=== PATIENT | female | born 1940 | race Caucasian/White ===

== ENCOUNTER → 2017-03-21 | Outpatient (CLI) | payer MEDICARE, OTHER ==
--- NOTE | 2017-03-21 15:16 | XR ---
EXAMINATION TYPE: XR chest 2V DATE OF EXAM: 03/21/2017 COMPARISON: NONE HISTORY: COPD, J44.9 TECHNIQUE: Frontal and lateral views of the chest are obtained. FINDINGS: There are prominent lung volumes which may be indicative of COPD. Heart size may be accent uated by rotation. No evident pneumothorax or pleural effusion. The aorta is dense. Pulmonary vascula rity and thomas within normal limits. Suspect a prominent epicardial fat pad. IMPRESSION: No acute cardiopulmonary process.
--- NOTE | 2017-03-22 07:20 | MM ---
Reason for exam: clinical finding. Last mammogram was performed 6 years and 5 months ago. History: Patient is postmenopausal. Took estrogen for 23 years beginning at age 40. Took progesterone for 23 years beginning at age 40. Physical Findings: Nurse did not find any significant physical abnormalities on exam. MG 3D Diag Mammo W/Cad DANILO Bilateral CC, MLO, and XCCL view(s) were taken. Prior study comparison: October 12, 2010, bilateral digital screening mammo w/CAD. September 04, 2009, bilateral digital screening mammogram. There are scattered fibroglandular densities. No significant new findings when compared with previous films. These results were verbally communicated with the patient and result sheet given to the patient on 03/21/17. ASSESSMENT: Benign, BI-RAD 2 RECOMMENDATION: Routine screening mammogram of both breasts in 1 year.
--- NOTE | 2017-03-22 07:21 | USB ---
Reason for exam: clinical finding. History: Patient is postmenopausal. Took estrogen for 23 years beginning at age 40. Took progesterone for 23 years beginning at age 40. US Breast LT Left breast ultrasound includes all four quadrants, the retroareolar region and axilla. Finding demonstrates no cystic or solid lesion seen. Nodes noted in axilla. These results were verbally communicated with the patient and result sheet given to the patient on 03/21/17. ASSESSMENT: Benign, BI-RAD 2 RECOMMENDATION: Routine screening mammogram of both breasts in 1 year.
== END | disposition home or self-care (01) ==
LOC: RADMAMWWP 14:24
PROVIDERS: ATTEND Family Medicine
DX: N64.4 Mastodynia (principal); J44.9 Chronic obstructive pulmonary disease, unspecified
CPT/HCPCS: 71020; 76641; G0204; G0279

== ENCOUNTER → 2017-08-30 | Outpatient (CLI) | payer MEDICARE, OTHER ==
--- NOTE | 2017-08-30 18:29 | CTL ---
EXAMINATION TYPE: CT Low Dose Lung DATE OF EXAM ORDERED: 08/30/2017 HISTORY: 77-year-old female personal history of tobacco use. Lung cancer screening CT DLP: [address] CTDI: 2.95 mGy Automated exposure control for dose reduction was used. SCREENING VISIT: Baseline COMPARISON: None TECHNIQUE: Low dose computed tomography scan was performed through the chest at 1 mm thick sections and reconstructed images in the coronal plane at 1 mm thick sections. Coronal and sagittal reconstructions performed. Coronal MIP reconstruction performed. CT DIAGNOSTIC QUALITY: Limited, but interpretable FINDINGS: Heart is normal size without pericardial effusion. Coronary vessel calcifications are present and are a marker for coronary artery disease. Aorta is normal caliber with conventional arch vessel branching anatomy and mild atherosclerotic calcifications throughout. Scattered nonenlarged mediastinal lymph nodes are present. No thoracic lymphadenopathy by CT size criteria.. There is mild to moderate diffuse bronchial wall thickening and some biapical pleural-parenchymal scarring. Scattered reticular densities are present in the subpleural regions suggesting some interstitial scarring. A 1.3 cm pulmonary nodule is present in the posterior right upper lobe, axial image 86 of series 5. 6 mm left lower lobe pulmonary nodule axial image 205 of series 5. No consolidation or pleural effusion. Visualized upper abdomen shows no gross abnormality.. Bones: No osseous destructive process. Degenerative disc disease midthoracic spine. IMPRESSION: 1. LungRADS 4A (suspicious, 5 - 15% chance of malignancy): A 1.3 cm right upper lobe pulmonary nodule at baseline screening. Additional 6 mm left lower lobe pulmonary nodule. 2. Moderate bronchial wall thickening suggests bronchitis or uncontrolled asthma. 3. CAD. RECOMMENDATION: 1. Three-month follow-up low-dose CT chest. 2. Alternatively, PET/CT can be considered. 3. Smoking cessation. FOLLOW UP CT CHEST RECOMMENDATION: [address] LUNG RAD: Lung-Rad 4A Suspicious MTDD
== END | disposition home or self-care (01) ==
LOC: RADCTMAIN 15:02
PROVIDERS: ATTEND Family Medicine
DX: Z12.2 Encounter for screening for malignant neoplasm of respiratory organs (principal); I25.10 Atherosclerotic heart disease of native coronary artery without angina pectoris; R91.8 Other nonspecific abnormal finding of lung field; J98.09 Other diseases of bronchus, not elsewhere classified; Z87.891 Personal history of nicotine dependence

== ENCOUNTER → 2017-09-09 | Outpatient (CLI) | payer MEDICARE, OTHER ==
--- NOTE | 2017-09-13 15:55 | PE ---
EXAMINATION TYPE: PET CT fusion skull to thigh DATE OF EXAM: 09/09/2017 COMPARISON: 08/30/2017 HISTORY: Solitary pulmonary nodule. TECHNIQUE: Following the intravenous administration of 13.4 mCi of F-18 FDG, whole body images are p erformed from the skull base to the midthigh. Images are reviewed on the computer in the coronal, ax ial, and sagittal planes. Reconstructed rotating images are created on independent workstation and r eviewed on the computer. A localization and attenuation correction CT is performed in conjunction w ith the PET scan. SCAN: First. Staging. FINDINGS: Mediastinal background: 2.49 Liver background: 3.84 SKULL BASE AND NECK: No suspicious hypermetabolic uptake. CHEST, MEDIASTINUM, AND HILAR REGION: Corresponding to the 1.3 cm right upper lobe pulmonary nodule t here is hypermetabolic activity with a maximum SUV of 5.22, suspicious for malignant neoplasm. The ad ditional 6 mm pulmonary nodule within the left lower lobe is below the threshold of PET CT and not de monstrated to be hypermetabolic on this examination. No hypermetabolic mediastinal adenopathy is note d. No supraclavicular adenopathy. ABDOMEN AND PELVIS: No suspicious hypermetabolic uptake. OSSEOUS STRUCTURES: No suspicious hypermetabolic uptake. OTHER CT: Paranasal sinuses and mastoid air cells are well aerated. Mild biapical pleural parenchymal scarring is noted. There is redemonstration of a right upper lobe 1.3 cm noncalcified solid pulmonar y nodule. 6 mm left pulmonary nodule within the lower lobe on image 118 is below the threshold of PET and not hypermetabolic. No other pulmonary nodules or masses are identified. No focal consolidation. No adenopathy. Moderate calcific atheromatous changes are seen of the thoracic aortae with the desce nding thoracic aorta upper limits normal size measuring 2.9 cm. Moderate three-vessel coronary calcif ications are also noted. Cholesterol gallstones are seen as they are centrally lucent. Unenhanced liver, adrenal glands, splee n, and pancreas are unremarkable. Renal arterial calcifications are seen. Ventral abdominal hernia nugent s a wide neck and does not contain bowel. This contains only mesenteric fat. No hydronephrosis or marleny ss evidence of adenopathy within the abdomen or pelvis. Scattered colonic diverticula are present wit hout pericolonic fat stranding. Osseous structures are intact with multilevel degenerative change yamila t is mild. IMPRESSION: Solitary hypermetabolic right upper lobe pulmonary nodule measuring 1.3 cm. The 6 mm left lower lobe pulmonary nodules not hypermetabolic, however is below the threshold of PET CT. No eviden ce of supraclavicular adenopathy, mediastinal adenopathy, osseous metastasis, or visceral metastasis. Therefore this patient is currently stage [id number] based on the PET/CT.
== END | disposition home or self-care (01) ==
LOC: RADPETMAIN 16:35
PROVIDERS: ATTEND Family Medicine
DX: R91.1 Solitary pulmonary nodule (principal)
CPT/HCPCS: 78815; A9552

== ENCOUNTER 2017-09-25 09:03 | Day surgery (SDC) | payer MEDICARE, OTHER ==
[2017-09-25 09:28] VITALS: RESP 20; TEMP 97.8
[2017-09-25] MEDS: ALPRAZolam 0.25 MG TAB PO STA ×2 (09:31→10:36)
[2017-09-25 09:47] LABS: Mean Platelet Volume 8.2; Platelet Count 207 k/uL (150-450)
[2017-09-25 09:58] LABS: INR 1.1 (<1.2); Prothrombin Time 10.4 sec (9.0-12.0)
[2017-09-25 11:02] VITALS: BP 171/82; PULSE 74
== END 2017-09-25 11:30 | disposition home or self-care (01) ==
LOC: RADPROMAIN 09:03
PROVIDERS: ATTEND Family Medicine
DX: R91.1 Solitary pulmonary nodule (principal); Z53.8 Procedure and treatment not carried out for other reasons
CPT/HCPCS: 36415; 85049; 85610

== ENCOUNTER 2017-10-05 09:01 | Day surgery (SDC) | payer MEDICARE, OTHER ==
[~2017-10-05 09:01] MED LIST: ALPRAZolam 0.25 MG TAB PO ONE
[2017-10-05 09:40] LABS: Mean Platelet Volume 8.2; Platelet Count 214 k/uL (150-450)
[2017-10-05 09:43] LABS: INR 1.1 (<1.2); Prothrombin Time 10.8 sec (9.0-12.0)
--- NOTE | 2017-10-05 11:16 | CT ---
EXAMINATION TYPE: CT guided lung biopsy DATE OF EXAM: 10/05/2017 COMPARISON: 09/09/2017. HISTORY: 1.3 cm hypermetabolic right upper lobe pulmonary nodule CT DLP: 1521 mGycm The procedure is discussed with the patient, the risks, complications, benefits and alternatives, wer e discussed and any questions were answered. Informed consent was obtained. Preprocedural timeout wa s performed. The patient is placed prone on the CT table, prepped and draped in the usual sterile fas hion. Utilizing a 17-gauge introducer and 18-gauge Temno biopsy device, access into the right upper lobe pu lmonary nodule was achieved. 4 core samples were obtained. All elements of maximal barrier techniqu e were utilized. The patient remained stable throughout the procedure with trace postprocedural pneu mothorax. Vitals were monitored throughout the examination by nursing staff. IMPRESSION: Successful CT guided core needle biopsy of a right upper lobe pulmonary nodule.
--- NOTE | 2017-10-05 12:33 | XR ---
EXAMINATION TYPE: XR chest 1V portable DATE OF EXAM: 10/05/2017 HISTORY: Status post lung biopsy. COMPARISON: 03/21/2017 TECHNIQUE: Single view of the chest is submitted. FINDINGS: Demonstrated are scattered senescent parenchymal change. There appears to be a tiny right apical pneumothorax. Follow-up recommended. Right upper lobe nodule redemonstrated. Patchy density right lower lobe. The heart is stable. Hilar and mediastinal structures are within normal limits. Degenerative changes are seen of the dorsal spine. IMPRESSION: 1. There appears to be a tiny right apical pneumothorax. Follow-up recommended. Right upper lobe nod ule redemonstrated. Patchy density right lower lobe.
--- NOTE | 2017-10-05 14:10 | XR ---
EXAMINATION TYPE: XR chest 1V portable DATE OF EXAM: 10/05/2017 COMPARISON: 10/05/2017 HISTORY: Status post right lung biopsy TECHNIQUE: Single frontal view of the chest is obtained. FINDINGS: The small right apical pneumothorax appears slightly larger than on the prior exam earlier the same date. Apical separation measures approximately 6.6 mm. This is estimated to be less than 10 %. Right upper lobe density relates to perilesional postbiopsy hemorrhage. Improved aeration of the l ungs is due likely due to improved degree of inspiration. Cardiomegaly remains. IMPRESSION: Right apical pneumothorax appears slightly larger than on the prior exam. Remainder of t he exam is unchanged from the prior.
--- NOTE | 2017-10-05 16:08 | XR ---
EXAMINATION TYPE: XR chest 1V portable DATE OF EXAM: 10/05/2017 COMPARISON: 10/05/2017 HISTORY: Status post right lung biopsy. TECHNIQUE: Single frontal view of the chest is obtained. FINDINGS: There is continued increase in size of the right apical pneumothorax. There is also a ques tion medial aspect of a pneumothorax. Obscuration of the left costophrenic angle is likely related to overlying copious soft tissues. Minimal perilesional hemorrhage is redemonstrated. Cardiomegaly is u nchanged. Osseous structures are grossly intact. IMPRESSION: Continued enlargement of the right apical pneumothorax. Findings were discussed with the floor nurse ordering physician and the patient will be admitted for continued monitoring.
--- NOTE | 2017-10-05 17:12 | XR ---
EXAMINATION TYPE: XR chest 1V portable DATE OF EXAM: 10/05/2017 COMPARISON: 10/05/2017 3:25 PM HISTORY: Post lung biopsy on the right. TECHNIQUE: Single frontal view of the chest is obtained. FINDINGS: There appears to be at least stability or decrease in the right apical pneumothorax and th e previously questioned medial component appears less conspicuous on the current examination. Cardiom egaly remains. Perilesional hemorrhage is mild. Improved aeration of the lungs is noted. Osseous stru ctures are intact. IMPRESSION: Stable if not slightly improved small right apical pneumothorax of approximately 10%.
[2017-10-05 17:38] VITALS: BMI 32.2
[2017-10-05] MEDS ORDERED: ALPRAZolam 0.5 MG TAB PO PRN (18:00)
[2017-10-05] MEDS ORDERED: SODIUM CHLORIDE 0.9% 500 ML IV SCH (18:00)
[2017-10-05] MEDS: cloNIDine HCL 0.1 MG TAB PO SCH (21:23)
[2017-10-05] MEDS: FAMOTIDINE 20 MG TAB PO SCH (21:23)
--- NOTE | 2017-10-05 21:28 | XR ---
EXAMINATION TYPE: XR chest 1V portable DATE OF EXAM: 10/05/2017 HISTORY: Follow-up pneumothorax right-sided lung biopsy. COMPARISON: 10/05/2017 TECHNIQUE: Single view of the chest is submitted. FINDINGS: Stable less than 10% right apical pneumothorax. Continued follow-up advised. Demonstrated are scattered senescent parenchymal change. There is no evidence for focal infiltrate. Upper lobe nodule redemonstrated. The heart is stable. Hilar and mediastinal structures are within normal limits. Degenerative changes are seen of the dorsal spine. IMPRESSION: 1. Stable less than 10% right apical pneumothorax. Continued follow-up advised.
--- NOTE | 2017-10-05 23:04 | HP ---
HISTORY AND PHYSICAL CHIEF COMPLAINT: [id number]old white female, status post right lung biopsy for a positive PET scan type lesion in the right upper lobe for possible lung cancer. Core biopsies were done. Pneumothorax was seen postoperatively. She is admitted for monitoring. PAST MEDICAL HISTORY: 1. Smoking and COPD. 2. Hypertension. 3. Obesity. 4. Status post lung core biopsy from Radiology Department with pneumothorax 10% post biopsy. Admitted for monitoring. HOME MEDICATIONS: 1. Claritin 10 mg daily. 2. Singulair 10 mg daily. 3. Zestril 10 mg daily. 4. Pepcid 10 mg b.i.d. 5. Catapres 0.1 mg t.i.d. 6. Xanax 0.5 mg p.r.n. REVIEW OF SYSTEMS: Fourteen-point review of systems negative except for mentioned in HPI. PHYSICAL EXAMINATION: Pulse 84 to 87, temperature 97.8, respiratory rate 16 to 20, blood pressure 130s to 170s over 70s to 90s, oxygen 96% on room air. CARDIOVASCULAR: S1, S2. LUNGS: Decreased breath sounds in the right lungs. Fair air flow bilaterally. No tracheal deviation seen on chest exam. ENT: No rales, rhonchi. Wheezes are equal bilaterally in both lungs. Scattered, mild to moderate. ENDOCRINE: BMI is over 40. PSYCH: Fair mood and affect. NEUROLOGIC: Alert and oriented x3. GENERAL: She appears to be breathing stably on room air at this time. Vital signs are reviewed. VASCULAR: Normal dorsalis pedis, posterior tibial and radial pulses. ASSESSMENT: 1. Status post lung biopsy with pneumothorax, with positive PET scan for right upper lobe possible metastases. Await biopsy report. Monitor pneumothorax overnight. 2. Hypertension. 3. Chronic obstructive pulmonary disease. 4. Nicotine addiction. Continue current treatments. Obesity counseling and smoking cessation counseling given. Will monitor her overnight. MMODL / IJN: [id number] /
[2017-10-06 06:57] LABS: Basophils % (A) 1 %; Eosinophils # (A) 0.3 k/uL (0-0.7); Eosinophils % (A) 4 %; HCT 39.8 % (34.0-46.0); HGB 13.6 gm/dL (11.4-16.0); Lymphocytes # (A) 2.2 k/uL (1.0-4.8); Lymphocytes % (A) 26 %; MCH 29.9 pg (25.0-35.0); MCHC 34.1 g/dL (31.0-37.0); MCV 87.6 fL (80.0-100.0); Mean Platelet Volume 7.1; Monocytes # (A) 0.4 k/uL (0-1.0); Monocytes % (A) 5 %; Neutrophils # (A) 5.5 k/uL (1.3-7.7); Neutrophils % (A) 64 %; Platelet Count 176 k/uL (150-450); RBC 4.55 m/uL (3.80-5.40); RDW 12.8 % (11.5-15.5); WBC 8.7 k/uL (3.8-10.6)
[2017-10-06 07:14] LABS: ALT 28 U/L (9-52); AST 16 U/L (14-36); Albumin 3.8 g/dL (3.5-5.0); Alkaline Phosphatase 79 U/L (38-126); Anion Gap 8 mmol/L; Blood Urea Nitrogen 11 mg/dL (7-17); Calcium 9.4 mg/dL (8.4-10.2); Carbon Dioxide 30 mmol/L (22-30); Chloride 104 mmol/L (98-107); Glucose 108 mg/dL (74-99); Potassium 4.1 mmol/L (3.5-5.1); Sodium 142 mmol/L (137-145); Total Bilirubin 0.8 mg/dL (0.2-1.3); Total Protein 6.7 g/dL (6.3-8.2)
[2017-10-06] MEDS ORDERED: HYDROcodone/APAP 5-325MG 1 EACH TAB PO PRN (07:18)
[2017-10-06] MEDS: FAMOTIDINE 20 MG TAB PO SCH (08:35)
[2017-10-06] MEDS: cloNIDine HCL 0.1 MG TAB PO SCH (08:35)
[2017-10-06] MEDS ORDERED: LISINOPRIL 10 MG TAB PO SCH (09:00)
[2017-10-06] MEDS ORDERED: LORATADINE 10 MG TAB PO SCH (09:00)
[2017-10-06] MEDS ORDERED: MONTELUKAST 10 MG TAB PO SCH (09:00)
[2017-10-06 12:23] VITALS: BP 122/72; PULSE 77; RESP 18; TEMP 98.6
--- NOTE | 2017-10-06 12:45 | P.CNPUL ---
History of Present Illness Consult date: 10/06/17 Reason for consult: pneumothorax, lung mass, abnormal CXR/CT Chief complaint: Shortness of breath, small apical pneumothorax History of present illness: 77-year-old female with extensive history of smoking and nicotine use seen eval reexamined on third floor this patient admitted into the hospital one day post CT-guided biopsy for right upper lobe nodule which was 1.3 cm in size patient developed a small apical pneumothorax serial chest x-rays performed to reviewed and compared with the prior x-rays the pneumothorax was consistent and slightly progress up to 10% patient was admitted into the hospital for further evaluation and intervention and treatment and observation, currently patient is pain-free does have mild shortness breath activity and exertion denies any chest pain, patient has been found to have a right upper lobe nodule she had a PET scan on outpatient basis which was positive for hypermetabolic uptake Review of Systems All systems: negative Past Medical History Past Medical History: Asthma, Eye Disorder, Hypertension, Osteoarthritis (OA), Respiratory Disorder Additional Past Medical History / Comment(s): Right ear pain-swelling lump mass in neck., polyp - pre cancer History of Any Multi-Drug Resistant Organisms: None Reported Past Surgical History: Hernia Repair, Hysterectomy Additional Past Surgical History / Comment(s): Colon/bowel surgery-"too much bowel" done in her 30's, cataracts, hemorroid sx, bowel resection, hiatel hernia Past Anesthesia/Blood Transfusion Reactions: No Reported Reaction Past Psychological History: No Psychological Hx Reported Smoking Status: Current every day smoker Past Alcohol Use History: None Reported Past Drug Use History: None Reported - Past Family History Sister(s) Family Medical History: Coronary Artery Disease (CAD) Father Family Medical History: Myocardial Infarction (CO) Mother Family Medical History: Cancer Additional Family Medical History / Comment(s): bowel cancer Medications and Allergies Home Medications Medication Instructions Recorded Confirmed Type ALPRAZolam [Xanax] 0.5 mg PO HS PRN 03/19/14 10/05/17 History Cetirizine HCl [Zyrtec] 10 mg PO DAILY 03/19/14 10/05/17 History Famotidine [Pepcid] 10 mg PO BID 03/19/14 10/05/17 History Montelukast [Singulair] 10 mg PO DAILY 09/15/17 10/05/17 History Lisinopril [Zestril] 10 mg PO DAILY 10/05/17 10/05/17 History cloNIDine HCL [Catapres] 0.1 mg PO TID 10/05/17 10/05/17 History Allergies Allergy/AdvReac Type Severity Reaction Status Date / Time Penicillins Allergy Rash/Hives Verified 10/05/17 09:25 Physical Exam Vitals: Vital Signs Temp Pulse Resp BP Pulse Ox 10/06/17 12:00 98.6 F 77 18 122/72 93 L 10/06/17 08:00 16 10/06/17 07:19 98.5 F 93 16 138/84 95 10/06/17 04:15 97.9 F 93 16 163/90 95 10/06/17 00:00 97.9 F 84 16 149/77 94 L 10/05/17 23:20 95 10/05/17 20:00 84 16 10/05/17 19:00 97.9 F 82 16 169/77 96 10/05/17 16:58 97.8 F 84 16 173/93 96 10/05/17 16:30 88 20 133/95 94 L 10/05/17 14:30 87 18 164/79 94 L 10/05/17 13:30 87 18 142/66 98 10/05/17 13:00 87 18 140/66 98 10/05/17 12:30 87 18 134/60 96 Intake and Output 10/05/17 10/06/17 10/06/17 22:59 06:59 14:59 Intake Total 560 100 Balance 560 100 Intake: Intake, IV Titration 160 Amount Sodium Chloride 0.9% 500 160 ml @ 20 mls/hr IV .Q24H [facility] Rx#:[id number] Oral 400 100 Other: Voiding Method Toilet # Voids 1 3 Weight 80 kg - EENT Eyes: EOMI, PERRLA, dentition normal, normal appearance ENT: normal oropharynx Ears: bilateral: normal - Neck Neck: normal ROM Carotids: bilateral: upstroke normal, bruit absent Thyroid: bilateral: normal size - Respiratory Respiratory: bilateral: CTA, negative: diminished, dullness, rales, rhonchi, wheezing, prolonged expiration, prolonged inspiration - Cardiovascular Heart sounds: normal: S1, S2 - Integumentary Integumentary: normal, normal turgor - Neurologic Normal neuro exam Neurologic: CNII-XII intact - Musculoskeletal Musculoskeletal: gait normal, generalized weakness, strength equal bilaterally - Psychiatric Psychiatric: A&O x's 3, appropriate affect, intact judgment & insight Results - Laboratory Findings CBC and BMP: 10/06/17 06:33 10/06/17 06:33 PT/INR, D-dimer PT 10.8 sec (9.0-12.0) 10/05/17 09:30 INR 1.1 (<1.2) 10/05/17 09:30 Abnormal lab findings: Abnormal Labs 10/06/17 06:33 Glucose 108 H - Diagnostic Findings Chest x-ray: report reviewed, image reviewed (Chest x-ray performed serially reviewed include postbiopsy x-ray at noontime on October 05, 2 PM and 3:20 PM and 5 PM same day along with 9 PM small apical pneumothorax is changed remains stable initial progression was noted another chest x-ray 10/06/17 reviewed no visible pneumothorax is seen some capping of the apex seen) Assessment and Plan Assessment: Small apical pneumothorax Right upper lobe nodule 1.3 cm with positive PET scan Hypertension hypertensive cardiovascular disease Sensory history of smoking and nicotine use likely baseline COPD Severe morbid obesity Generalized anxiety disorder Plan: Continue deep breathing exercise incentive spirometry repeat chest x-ray tomorrow morning if remains stable can be discharged home with follow-up on outpatient basis for for more definitive intervention about the right upper lobe nodule for follow-up on path reports as well which is currently pending Time with Patient: Greater than 30
--- NOTE | 2017-10-06 13:26 | XR ---
EXAMINATION TYPE: XR chest 1V portable DATE OF EXAM: 10/06/2017 COMPARISON: Prior chest x-ray 10/05/2017 HISTORY: Pneumothorax postbiopsy TECHNIQUE: Single frontal view of the chest is obtained. FINDINGS: Minimal right apical pneumothorax suspected. No significant interval change. IMPRESSION: No significant change. Patient is rotated.
== END 2017-10-06 15:46 ==
LOC: RADPROMAIN 09:01 → 3SUR 16:11 → RADPROMAIN 10-06 15:46
PROVIDERS: ATTEND Family Medicine
DX: C34.11 Malignant neoplasm of upper lobe, right bronchus or lung (principal); J93.9 Pneumothorax, unspecified; I11.9 Hypertensive heart disease without heart failure; J44.9 Chronic obstructive pulmonary disease, unspecified; E66.01 Morbid (severe) obesity due to excess calories; Z68.32 Body mass index [BMI] 32.0-32.9, adult; F17.200 Nicotine dependence, unspecified, uncomplicated; H57.9 Unspecified disorder of eye and adnexa; F41.1 Generalized anxiety disorder; M19.90 Unspecified osteoarthritis, unspecified site; Z79.899 Other long term (current) drug therapy; Z88.0 Allergy status to penicillin
CPT/HCPCS: 36415; 71045; 77012; 80053; 85025; 85049; 85610; 88305; 88341; 88342; 94760; 94762

== ENCOUNTER → 2017-10-18 | Outpatient (CLI) | payer MEDICARE, OTHER ==
[~2017-10-18] MED LIST changes: -ALPRAZolam 0.25 MG TAB PO ONE; +REGADENOSON 0.4 MG/5 ML SYRINGE IV ONE
--- NOTE | 2017-10-18 11:05 | NM ---
"EXAMINATION TYPE: NM stress lexiscan cardiolite DATE OF EXAM: 10/18/2017 COMPARISON: NONE HISTORY: Preprocedure testing TECHNIQUE: After the intravenous administration of 10.12 mCi Tc 99m Sestamibi - Cardiolite resting S PECT images acquired 45 minutes post injection. The patient received 0.4mg Lexiscan, 26.1 mCi Tc 99m Sestamibi - Stress images obtained [address] injection FINDINGS: There appears be normal radiotracer distribution on the resting images. On stress images there is gonzales e subtle diminished radiotracer within the cardiac apex. Some mild stress-induced ischemic change at this level may be present. This is reversible on rest. Gated wall motion is normal. The ejection fraction of 56% is normal. IMPRESSION: 1. Suggestion of some mild stress-induced ischemic change the cardiac apex. 2. Normal ejection fraction A Yellow level critical message alert has been initiated for Billy Saul MD via the [employer] 0 | Critical Results System on 10/18/2017 11:03 AM. This message alert has been sent to Billy Saul MD via the preferences provided by the clinician for the receipt of Radiology Critical Findings. [facility] ID [id number]."
--- NOTE | 2017-10-18 12:06 | EST ---
EXERCISE STRESS DATE OF SERVICE: 10/18/2017 AGE: 77 SEX: Female HT: 62" WT: 190 pounds PROTOCOL: Lexiscan Cardiolite STAGE: DURATION OF EXERCISE: HEART RATE REST: 68 BLOOD PRESSURE REST: 137/74 MAXIMUM HEART RATE ACHIEVED: 104 MAXIMUM BLOOD PRESSURE: 162/56 85% MPHR: 123 100% MPHR: 145 METS: INDICATIONS: Pre-op. CLINICAL INFORMATION: This is a 77-year-old female awaiting lung surgery for pulmonary neoplasm. This is a preop assessment referred by Dr. Billy Saul for a stress test. Baseline heart rate 68 beats per minute. Baseline blood pressure is 137/74 mmHg. Baseline 12-lead ECG shows normal sinus rhythm with normal cardiac intervals. The patient received Lexiscan infusion per protocol. There was no significant change in heart rate or blood pressure. No ECG abnormalities noted. However, she did complain of heaviness in the chest. Nuclear portion will be reported separately. MMODL / IJN: [id number] /
== END | disposition home or self-care (01) ==
LOC: RADNMMAIN 07:59
PROVIDERS: ATTEND Family Medicine
DX: Z01.818 Encounter for other preprocedural examination (principal)
CPT/HCPCS: 93017; 78452; A9500; J2785

== ENCOUNTER 2017-10-21 23:43 | Emergency (ER) | payer MEDICARE, OTHER ==
[2017-10-21 23:52] VITALS: RESP 18
[2017-10-22] MEDS ORDERED: HYDROcodone/APAP 5-325MG 1 EACH TAB PO STA (00:28)
--- NOTE | 2017-10-22 01:59 | XR ---
EXAMINATION TYPE: XR lumbar spine 2 or 3V DATE OF EXAM: 10/22/2017 COMPARISON: NONE HISTORY: Leg pain TECHNIQUE: 3 views FINDINGS: Vertebra have normal alignment. There is mild narrowing of the disc spaces at L4-5 L5-S1. A bdominal aorta is atheromatous. There is no compression fracture. Posterior elements are intact. Sacr oiliac joints are intact. IMPRESSION: Mild degenerative disc changes. No fracture.
--- NOTE | 2017-10-22 02:00 | XR ---
EXAMINATION TYPE: XR femur LT DATE OF EXAM: 10/22/2017 COMPARISON: NONE HISTORY: Pain TECHNIQUE: 4 views FINDINGS: I see no fracture nor dislocation. Joint spaces are fairly normal. 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 IMPRESSION: No acute abnormality of the left femur. No fracture.
--- NOTE | 2017-10-22 02:01 | XR ---
EXAMINATION TYPE: XR knee complete LT DATE OF EXAM: 10/22/2017 COMPARISON: NONE HISTORY: Knee pain TECHNIQUE: 3 views FINDINGS: I see no fracture nor dislocation. There is no sign of knee joint effusion. Joint spaces ar e fairly normal. There is sclerosis in the distal femoral metaphysis due to old infarct. IMPRESSION: No acute abnormality of the left knee. No significant joint space narrowing.
--- NOTE | 2017-10-22 02:01 | ED ---
Lower Extremity Injury HPI - General Chief Complaint: Extremity Injury, Lower Stated Complaint: fall Time Seen by Provider: 10/22/17 00:01 Source: patient, RN notes reviewed, old records reviewed Mode of arrival: wheelchair Limitations: physical limitation - History of Present Illness Initial Comments: This patient is a 77 year old female with CC of left knee pain after a fall. She was cleaning up the litter box, and slipped. She reports she landed on her left knee. She had to call EMS for lift assist to be transport to hospital. Denies previous injury to the knee. Denies any hip or foot pain. She reports that it has swollen. Denies paresthesias. She denies any other injury related to the fall. - Related Data Home Medications Medication Instructions Recorded Confirmed ALPRAZolam [Xanax] 0.5 mg PO HS PRN 03/19/14 10/05/17 Cetirizine HCl [Zyrtec] 10 mg PO DAILY 03/19/14 10/05/17 Famotidine [Pepcid] 10 mg PO BID 03/19/14 10/05/17 Montelukast [Singulair] 10 mg PO DAILY 09/15/17 10/05/17 Lisinopril [Zestril] 10 mg PO DAILY 10/05/17 10/05/17 cloNIDine HCL [Catapres] 0.1 mg PO TID 10/05/17 10/05/17 Previous Rx's Medication Instructions Recorded HYDROcodone/APAP 5-325MG [[place] 1 tab PO Q6HR PRN #15 tab 10/22/17 5-325] Ibuprofen [Motrin] 600 mg PO Q8HR PRN #20 tab 10/22/17 Allergies Allergy/AdvReac Type Severity Reaction Status Date / Time Penicillins Allergy Rash/Hives Verified 10/21/17 23:52 Review of Systems ROS Statement: Those systems with pertinent positive or pertinent negative responses have been documented in the HPI. ROS Other: All systems not noted in ROS Statement are negative. Past Medical History Past Medical History: Asthma, Eye Disorder, Hypertension, Osteoarthritis (OA), Respiratory Disorder Additional Past Medical History / Comment(s): Right ear pain-swelling lump mass in neck., polyp - pre cancer, lung cancer surgery within two weeks (10/21/17) History of Any Multi-Drug Resistant Organisms: None Reported Past Surgical History: Hernia Repair, Hysterectomy Additional Past Surgical History / Comment(s): Colon/bowel surgery-"too much bowel" done in her 30's, cataracts, hemorroid sx, bowel resection, hiatel hernia , Past Anesthesia/Blood Transfusion Reactions: No Reported Reaction Past Psychological History: No Psychological Hx Reported Smoking Status: Former smoker Past Alcohol Use History: None Reported Past Drug Use History: None Reported - Past Family History Sister(s) Family Medical History: Coronary Artery Disease (CAD) Father Family Medical History: Myocardial Infarction ([place]) Mother Family Medical History: Cancer Additional Family Medical History / Comment(s): bowel cancer General Exam - General Exam Comments Initial Comments: This is a 77 year old female, no distress. Limitations: physical limitation General appearance: alert, in no apparent distress Head exam: Present: atraumatic, normocephalic, normal inspection Eye exam: Present: normal appearance, PERRL, EOMI. Absent: scleral icterus, conjunctival injection, periorbital swelling ENT exam: Present: normal exam, mucous membranes moist Neck exam: Present: normal inspection. Absent: tenderness, meningismus, lymphadenopathy Respiratory exam: Present: normal lung sounds bilaterally. Absent: respiratory distress, wheezes, rales, rhonchi, stridor Cardiovascular Exam: Present: regular rate, normal rhythm, normal heart sounds. Absent: systolic murmur, diastolic murmur, rubs, gallop, clicks GI/Abdominal exam: Present: soft, normal bowel sounds. Absent: distended, tenderness, guarding, rebound, rigid Extremities exam: Present: normal inspection, full ROM, normal capillary refill. Absent: tenderness, pedal edema, joint swelling, calf tenderness Left Upper Leg exam: Present: normal inspection, full ROM Knee exam: Present: tenderness, swelling. Absent: normal inspection, full ROM Lower Leg exam: Present: normal inspection, full ROM Ankle exam: Present: normal inspection, full ROM Back exam: Present: normal inspection Neurological exam: Present: alert, oriented X3, CN II-XII intact Psychiatric exam: Present: normal affect, normal mood Skin exam: Present: warm, dry, intact, normal color. Absent: rash Course Vital Signs 10/21/17 10/22/17 23:47 02:30 Temperature 98.0 F 97.9 F Pulse Rate 74 70 Respiratory 18 18 Rate Blood Pressure 134/72 165/71 O2 Sat by Pulse 96 96 Oximetry Medical Decision Making - Medical Decision Making This patient is a 77 year old female with left knee pain after fall. She does have significant effusion. She received xrays which are negative for any acute process. she does have swelling on left knee, and difficult time bearing weight over it. Patientwas given knee immobilizer, and will discharge with pain medication. All questions answered and return parameters dicsussed. - Radiology Data Radiology results: report reviewed Xray of left knee show no acute abnormality. No significant joint space narrowing. Femur X-ray shows no acute abnormality. Lumbar spine X-ray shows degenerative changes, but no acute process identified. Disposition Clinical Impression: Left knee sprain, Fall Disposition: HOME SELF-CARE Condition: Good Instructions: Knee Sprain (ED) Additional Instructions: Patient has a follow-up with primary care provider. Take the medications as prescribed. Patient is follow-up with orthopedic provider on Monday. Prescriptions: HYDROcodone/APAP 5-325MG [[place] 5-325] 1 tab PO Q6HR PRN #15 tab PRN Reason: Pain Ibuprofen [Motrin] 600 mg PO Q8HR PRN #20 tab PRN Reason: Pain Referrals: Billy Saul MD [Primary Care Provider] - 1-2 days Glen Roque MD [STAFF PHYSICIAN] - 1-2 days Time of Disposition: 01:59
[2017-10-22 02:31] VITALS: BP 165/71; PULSE 70; TEMP 97.9
--- NOTE | 2017-10-25 03:57 | CDI ---
Documentation Clarification OP Dear Eusebia Flores PA-C Please do addendum to ED report that provides Need ER H &P,Physical Exam Thank you, Prashant Metzger Precision Grinder External If you have any questions, please contact Boilerhouse Mechanic at [phone] [facility]
== END 2017-10-22 02:31 | disposition home or self-care (01) ==
LOC: EC 23:43
DX: S83.92XA Sprain of unspecified site of left knee, initial encounter (principal); J45.909 Unspecified asthma, uncomplicated; I10 Essential (primary) hypertension; Z87.891 Personal history of nicotine dependence; Z85.118 Personal history of other malignant neoplasm of bronchus and lung; Z79.899 Other long term (current) drug therapy; Z88.0 Allergy status to penicillin; W01.0XXA Fall on same level from slipping, tripping and stumbling without subsequent striking against object, initial encounter; Y93.89 Activity, other specified; Y92.009 Unspecified place in unspecified non-institutional (private) residence as the place of occurrence of the external cause
CPT/HCPCS: 72100; 73552; 73562; 99284; L1830

== ENCOUNTER → 2017-10-26 | Outpatient (CLI) | payer MEDICARE, OTHER ==
[2017-10-26 15:07] LABS: Potassium 4.5 mmol/L (3.5-5.1)
[2017-10-26 15:08] LABS: Appearance,Urine Cloudy (Clear); Bacteria,Urine Rare /hpf; Bilirubin,Urine Negative (Negative); Blood,Urine Negative (Negative); Color,Urine Yellow; Glucose,Urine (UA) Negative (Negative); Ketones,Urine Negative (Negative); Leukocyte Esterase,Urine Large (Negative); Mucus,Urine Occasional /hpf; Nitrite,Urine Negative (Negative); Protein,Urine Trace (Negative); RBC,Urine 2 /hpf (0-5); Specific Gravity,Urine 1.024 (1.001-1.035); Squamous Epithelial Cell,Urine 6 /hpf (0-4); Urobilinogen,Urine <2.0 mg/dL (<2.0); WBC,Urine 12 /hpf (0-5)
[2017-10-26 15:10] LABS: INR 1.1 (<1.2)
[2017-10-26 15:32] LABS: HGB 12.6 gm/dL (11.4-16.0); MCH 29.1 pg (25.0-35.0); MCHC 33.2 g/dL (31.0-37.0); MCV 87.8 fL (80.0-100.0); Mean Platelet Volume 7.9; Partial Thromboplastin Time 22.9 sec (22.0-30.0); Platelet Count 251 k/uL (150-450); Prothrombin Time 10.5 sec (9.0-12.0); RBC 4.33 m/uL (3.80-5.40); RDW 12.6 % (11.5-15.5)
== END | disposition home or self-care (01) ==
LOC: LABPAT 14:06
PROVIDERS: ATTEND Thoracic Surgery (Cardiothoracic Vascular Surgery)
DX: Z01.812 Encounter for preprocedural laboratory examination (principal); C34.11 Malignant neoplasm of upper lobe, right bronchus or lung; Z79.01 Long term (current) use of anticoagulants
CPT/HCPCS: 36415; 80051; 81001; 82947; 85027; 85610; 85730; 87086

== ENCOUNTER 2017-11-02 06:10 | Inpatient (IN) | payer MEDICARE, OTHER ==
[2017-10-30 15:37] VITALS: BMI 34.7
[~2017-11-02 06:10] MED LIST changes: +HYDROmorphone 0.5 MG/0.5 ML SYRINGE IVP PRN; +MORPHINE SULFATE 4 MG/ML SYRINGE IV PRN; +ONDANSETRON 4 MG/2 ML VIAL IVP PRN; -REGADENOSON 0.4 MG/5 ML SYRINGE IV ONE; +ceFAZolin 1,000 MG in DEXTROSE/WATER 1 50ML.BAG IV ONE
[2017-11-02] MEDS: LACTATED RINGERS 1,000 ML IV SCH (07:18)
[2017-11-02] MEDS ORDERED: LIDOCAINE 1% 20 ML VIAL (10MG/ML) FOR IV START INTRADERMA ONE ×2 (07:19)
[2017-11-02] MEDS ORDERED: PHENYLEPHRINE-0.9% NACL SYG 1 MG/10 ML SYRINGE ONE (07:35)
[2017-11-02] MEDS ORDERED: MIDAZOLAM 2 MG/2 ML VIAL ONE (07:35)
[2017-11-02] MEDS ORDERED: ROCURONIUM BROMIDE 10 MG/ML 10 ML VIAL IV ONE (07:35)
[2017-11-02] MEDS ORDERED: SUCCINYLCHOLINE CHLORIDE 100 MG/5 ML SYR IV ONE (07:35)
[2017-11-02] MEDS ORDERED: LIDOCAINE 1% INJ 10MG/ML (20 ML MDV) ONE (07:35)
[2017-11-02] MEDS ORDERED: NEOSTIGMINE 1 MG/ML 10 ML VIAL ONE (07:35)
[2017-11-02] MEDS ORDERED: PROPOFOL 10 MG/ML 20 ML VIAL IV ONE (07:35)
[2017-11-02] MEDS ORDERED: GLYCOPYRROLATE 0.2 MG/ML 2 ML VIAL ONE (07:35)
[2017-11-02] MEDS ORDERED: fentaNYL (PF) 50 MCG/ML 2 ML AMP ONE (07:35)
[2017-11-02] MEDS ORDERED: SODIUM CHLORIDE 0.9% 50 ML with ceFAZolin 2,000 MG IV ONE ×2 (08:08)
[2017-11-02] MEDS ORDERED: BUPIVACAINE (PF) 0.5% 30 ML VIAL SQ ONE ×2 (08:29→10:14)
[2017-11-02] MEDS ORDERED: fentaNYL (PF) 50 MCG/ML 2 ML AMP IVP ONE ×4 (11:04→12:02)
--- NOTE | 2017-11-02 11:10 | P.OP ---
Date of Procedure: 11/02/17 Preoperative Diagnosis: Mass right upper lobe consistent with primary pulmonary malignancy Postoperative Diagnosis: Same Procedure(s) Performed: Robotic-assisted thoracoscopic right upper lobectomy with mediastinal lymph node dissection Anesthesia: NATI Surgeon: Jabari Mix Clerk Rating #1: Chele Hensley Estimated Blood Loss (ml): 25 IV fluids (ml): 1,000 Urine output (ml): 200 Pathology: other (Right upper lobe, lymph node stations 4R, 7, 8R, 10 R, 11 R) Condition: stable Disposition: PACU Indications for Procedure: 77-year-old female with new right upper lobe mass detected on chest x-ray and computed tomography scan clinically stage I BiPAP needle biopsy positive for adenocarcinoma consistent with primary pulmonary malignancy. Pulmonary function tests consistent with ability to tolerate lobectomy. Cardiac stress test negative. Medical clearance obtained from Dr. Saul. Operative Findings: Free pleural space with minimal adhesive disease. Extensive lymphadenopathy. Palpable small mass in the posterior segment of the right upper lobe. Near complete fissures. Description of Procedure: The patient was brought to the operating room, placed supine on the operating table, anesthetized and intubated with a double-lumen endotracheal tube. Tube was positioned with fiberoptic bronchoscopy. Patient was turned in the left lateral decubitus position and the right chest sterilely prepped and draped. Initial incision was made in the anterior axillary line in the eighth interspace. An 8 mm robotic thoracoscopic port was placed at this level. Presence in the pleural space was confirmed. CO2 insufflation was begun with single lung ventilation. Remaining thoracoscopic ports were placed in the following fashion. A 12 mm port 10 centimeters anterior to the initial port. Second 12 mm port 10 cm posterior to the initial port. Second 8 mm port positioned just above the level of the fissure posteriorly just anterior to the spine by internal landmarks. Working port just above the level of the diaphragm between the first and second ports. Robot was docked. A long grasper was placed in arm 1 a cadierre grasper in arm to the camera and arms 3 and a bipolar dissector in arm 4. Dissection was begun by mobilizing the inferior pulmonary ligament and then dissecting posteriorly. Multiple anthracotic paraesophageal lymph nodes were encountered and were resected and sent as R8 lymph nodes. Dissection was continued up into the subcarinal region and level VII lymph nodes were resected. Dissection was then carried anterior to the bronchus intermedius up to the takeoff of the upper lobe bronchus. R 11 lymph nodes in this area were resected. Pleural reflection was developed inferior to the azygos vein. The upper lobe bronchus was encircled and ligated and divided with a robotic green stapler. Further R 11 lymph nodes were resected back to the pulmonary artery. Was no evident distal branch of the pulmonary artery that could be easily resected at this time and so we moved anteriorly. The lesser fissure was complete and the pleura was opened exposing the pulmonary artery and pulmonary veins. R 11 lymph nodes in this area were resected. Dissection was then carried out around the branches of the superior pulmonary vein draining the upper lobe. We had to take these in 2 separate bundles using robotic vascular staplers. After resection of some more R 11 lymph nodes, we divided several branches of the pulmonary artery leading to the upper lobe. Anterior segmental branch of the bronchus had been skipped as it appeared to run anomalously anterior to the pulmonary artery. This was encircled and divided with a robotic green stapler. We now had good exposure of the truncus anterious but opted to complete the fissure posteriorly prior to taking the truncus to a improve the exposure further. Posterior portion of the fissure was completed with a single firing of the robotic 45 mm blue stapler. We now able to divide the truncus with 2 separate firings of the Endo SHAQ vascular stapler. The R 10 lymph nodes were now resected and the remaining pleural connections were divided inferior to the azygos vein. The lobe was lifted away from the field and the R4 lymph nodes were resected with an en bloc resection of the paratracheal region on the right. Lobectomy specimen was now placed in an Endo Catch bag and easily brought out through the working port incision. Chest was copiously irrigated and checked for hemostasis. The lung was reinflated under direct vision and no air leaks were identified. 28-Latvian chest tube was placed through separate stab incision anteriorly and positioned posterior apically and secured. The robot was undocked and removed from the field the lung was gently reinflated under direct vision and the incisions closed with layers of Vicryl suture. Rib blocks were performed at the level of the incisions with half percent Marcaine. Skin incisions were dressed with skin glue and Band-Aid dressings the chest tube had a standard chest tube dressing placed. Chest tube was connected to a Pleur-evac patient was turned supine and extubated and transferred to recovery in stable condition.
--- NOTE | 2017-11-02 11:23 | XR ---
EXAMINATION TYPE: XR chest 1V portable DATE OF EXAM: 11/02/2017 HISTORY: Status post lobectomy with chest tube placement COMPARISON: 10/06/2017 TECHNIQUE: Single view of the chest is submitted. FINDINGS: Right-sided chest tube is in place with its tip overlying the right apex. Pneumothorax is not well se en at this time. Lobectomy changes are seen of the right hemithorax. The left lung demonstrates mild hyperinflation. There is no evidence for focal infiltrate. The heart is stable. Hilar and mediastinal structures are within normal limits. Degenerative changes are seen of the dorsal spine. IMPRESSION: 1. Postoperative changes right hemithorax. Chest tube in place without evidence for sizable pneumoth orax at this time.
[2017-11-02] MEDS ORDERED: LACTATED RINGERS 1,000 ML IV ONE (11:52)
[2017-11-02] MEDS ORDERED: ACETAMINOPHEN TAB 325 MG TAB PO PRN (13:04)
[2017-11-02] MEDS ORDERED: DEXTROSE 5%-0.45% NACL 1,000 ML IV SCH (13:04)
[2017-11-02] MEDS ORDERED: traMADol 50 MG TAB PO SCH (13:04)
[2017-11-02] MEDS ORDERED: ONDANSETRON 4 MG/2 ML VIAL IVP PRN (13:04)
[2017-11-02] MEDS ORDERED: IPRATROPIUM-ALBUTEROL 3 ML NEB IH PRN (13:04)
[2017-11-02] MEDS: IPRATROPIUM-ALBUTEROL 3 ML NEB IH SCH ×3 (13:30→19:15)
[2017-11-02] MEDS ORDERED: HYDROcodone/APAP 5-325MG 1 EACH TAB PO PRN (15:24)
[2017-11-02] MEDS: HEPARIN SODIUM,PORCINE 5,000 UNIT/ML 1 ML VIAL SQ SCH (15:44)
[2017-11-02] MEDS: HYDROcodone/APAP 5-325MG 1 EACH TAB PO PRN ×2 (15:44→21:36)
[2017-11-02] MEDS: KETOROLAC 30 MG/ML 1 ML VIAL IVP SCH (17:29)
[2017-11-02] MEDS: ceFAZolin IN SWFI 2 GM/20 ML SYRINGE IVP SCH (17:29)
[2017-11-02] MEDS: CARVEDILOL 3.125 MG TAB PO SCH (17:31)
[2017-11-02] MEDS ORDERED: ACETAMINOPHEN IV (For NPO) 1,000 MG in EMPTY BAG 1 BAG IVPB SCH (18:00)
[2017-11-02] MEDS: FORMOTEROL FUMARATE 20 MCG/2 ML NEBU INHALATION SCH (19:15)
[2017-11-02] MEDS: MONTELUKAST 10 MG TAB PO SCH (21:35)
[2017-11-02] MEDS: FAMOTIDINE 20 MG TAB PO SCH (21:35)
[2017-11-02] MEDS: ATORVASTATIN 40 MG TAB PO SCH (21:35)
--- NOTE | 2017-11-02 23:55 | CONS ---
CONSULTATION CHIEF COMPLAINT: White female with cough, congestion, shortness of breath with a history of COPD, status post right upper lobe lobectomy per Dr. Mix for adenocarcinoma lung cancer, right upper lobe found on needle biopsy, status post low-grade CT scan, PET scan. She has history of COPD, nicotine addiction. HOME MEDICATIONS: Inhalers, updraft treatments, etc. REVIEW OF SYSTEM: A 14-point review of system significant for significant pain where she had incision in the anterior to posterior chest per Dr. Mix, otherwise negative. PHYSICAL EXAM: Vital signs stable. Afebrile. She is on 2 L, saturating in the mid 90s. CARDIOVASCULAR: S1, S2. LUNGS: Scattered wheeze x4. HEMATOLOGY: Negative Homans. PSYCH: Fair mood and affect. NEUROLOGIC: Alert and orient x3. OPHTHALMOLOGIC: Pupils equal, round, react to light and accommodation. ASSESSMENT: Lung cancer, pulmonary lobectomy, right upper lobe chronic obstructive pulmonary disease. Continue with current treatment with updraft treatments. Pain control. Home medicines will be reordered. MMODL / IJN: [id number] /
[2017-11-03] MEDS: KETOROLAC 30 MG/ML 1 ML VIAL IVP SCH ×5 (00:10→23:55)
[2017-11-03] MEDS: ALPRAZolam 0.5 MG TAB PO SCH ×2 (00:11→20:30)
[2017-11-03] MEDS: ceFAZolin IN SWFI 2 GM/20 ML SYRINGE IVP SCH (00:11)
[2017-11-03] MEDS: HEPARIN SODIUM,PORCINE 5,000 UNIT/ML 1 ML VIAL SQ SCH ×4 (00:19→23:55)
[2017-11-03] MEDS: HYDROcodone/APAP 5-325MG 1 EACH TAB PO PRN (03:26)
[2017-11-03 06:32] LABS: Basophils % (A) 0 %; Eosinophils # (A) 0.1 k/uL (0-0.7); Eosinophils % (A) 1 %; HCT 39.4 % (34.0-46.0); HGB 12.8 gm/dL (11.4-16.0); Lymphocytes # (A) 1.6 k/uL (1.0-4.8); Lymphocytes % (A) 17 %; MCH 29.1 pg (25.0-35.0); MCHC 32.5 g/dL (31.0-37.0); MCV 89.6 fL (80.0-100.0); Mean Platelet Volume 7.7; Monocytes # (A) 0.6 k/uL (0-1.0); Monocytes % (A) 6 %; Neutrophils # (A) 7.4 k/uL (1.3-7.7); Neutrophils % (A) 75 %; Platelet Count 203 k/uL (150-450); RDW 13.2 % (11.5-15.5); WBC 9.9 k/uL (3.8-10.6)
[2017-11-03] MEDS: CARVEDILOL 3.125 MG TAB PO SCH ×2 (06:49→17:11)
[2017-11-03 06:52] LABS: Anion Gap 14 mmol/L; Blood Urea Nitrogen 19 mg/dL (7-17); Calcium 9.1 mg/dL (8.4-10.2); Carbon Dioxide 25 mmol/L (22-30); Chloride 99 mmol/L (98-107); Glucose 131 mg/dL (74-99); Potassium 4.9 mmol/L (3.5-5.1); Sodium 138 mmol/L (137-145)
--- NOTE | 2017-11-03 06:54 | XR ---
EXAMINATION TYPE: XR chest 1V DATE OF EXAM: 11/03/2017 CLINICAL HISTORY: Difficulty breathing post thoracic surgery progress study. TECHNIQUE: Single AP portable frontal view of the chest is obtained. COMPARISON: Chest x-ray from one day earlier and older studies. FINDINGS: There is redemonstration of right apical chest tube. Evaluation slightly suboptimal due to portable technique and patient's large body habitus. There is persistent cardiomegaly. 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 Osseous structures are intact. IMPRESSION: Overall stable findings, chronic parenchymal changes and cardiomegaly without suspiciou s acute pulmonary process identified.
[2017-11-03] MEDS: ASPIRIN 81 MG PO SCH (08:25)
[2017-11-03] MEDS: LORATADINE 10 MG TAB PO SCH (08:25)
[2017-11-03] MEDS: FAMOTIDINE 20 MG TAB PO SCH ×2 (08:25→20:30)
[2017-11-03] MEDS: POLYETHYLENE GLYCOL 3350 17 GM POWD.PACK PO SCH (08:25)
[2017-11-03] MEDS: FORMOTEROL FUMARATE 20 MCG/2 ML NEBU INHALATION SCH ×2 (08:28→20:48)
[2017-11-03] MEDS: IPRATROPIUM-ALBUTEROL 3 ML NEB IH SCH ×4 (08:28→20:48)
[2017-11-03] MEDS: ACETYLCYSTEINE 800 MG/4 ML VIAL INHALATION SCH ×3 (12:07→20:48)
--- NOTE | 2017-11-03 12:58 | P.CNPUL ---
History of Present Illness Consult date: 11/02/17 (Late entry note) Reason for consult: lung mass, abnormal CXR/CT Chief complaint: Right upper lobe adenocarcinoma status post resection History of present illness: 77-year-old female well-known to me this patient has been incidentally found to have right upper lobe mass she underwent a CT-guided biopsy of the mass which was found to be adenocarcinoma patient is status post PET scan PFT postbiopsy had a small pneumothorax was resolving spontaneously patient has been admitted electively in the hospital for a right upper lobe mass resection and lymph node dissection, patient tolerated the surgery well postoperatively has been 6 a venous extubated does have some postoperative pain otherwise denies any nausea vomiting denies any cough or sputum production denies any night sweats fever or chills, for operative report of right upper lobe mass resection and lymph node dissection please refer to operative detailed note done by Dr. Mix Review of Systems All systems: negative Past Medical History Past Medical History: Asthma, Cancer, Hyperlipidemia, Hypertension, Osteoarthritis (OA), Respiratory Disorder Additional Past Medical History / Comment(s): "lung cancer", recent fall injury to lt knee "knee sprain" to see orthopedic dr 10/31/17, hx colon polyps History of Any Multi-Drug Resistant Organisms: None Reported Past Surgical History: Bowel Resection, Hernia Repair, Hysterectomy Additional Past Surgical History / Comment(s): Colon/bowel surgery-"too much bowel" done in her 30's, nain cataracts, hemorrhoid sx, bowel resection, hiatel hernia Past Anesthesia/Blood Transfusion Reactions: No Reported Reaction Smoking Status: Former smoker - Past Family History Sister(s) Family Medical History: Coronary Artery Disease (CAD) Father Family Medical History: Myocardial Infarction ([place]) Mother Family Medical History: Cancer Additional Family Medical History / Comment(s): bowel cancer Medications and Allergies Home Medications Medication Instructions Recorded Confirmed Type ALPRAZolam [Xanax] 0.5 mg PO HS 03/19/14 11/02/17 History Cetirizine HCl [Zyrtec] 10 mg PO DAILY 03/19/14 11/02/17 History Famotidine [Pepcid] 10 mg PO BID 03/19/14 11/02/17 History Montelukast [Singulair] 10 mg PO HS 09/15/17 11/02/17 History HYDROcodone/APAP 5-325MG [[place] 1 tab PO Q6HR PRN #15 tab 10/22/17 11/02/17 Rx 5-325] Albuterol Inhaler [Ventolin Hfa 1 puff INHALATION RT-Q6H PRN 10/30/17 11/02/17 History Inhaler] Aspirin [Adult Low Dose Aspirin EC] 81 mg PO DAILY 10/30/17 11/02/17 History Atorvastatin Calcium [Lipitor] 40 mg PO HS 10/30/17 11/02/17 History Carvedilol [Coreg] 3.125 mg PO BID 10/30/17 11/02/17 History Ibuprofen [Motrin] 600 mg PO Q8HR PRN 10/30/17 11/02/17 History Polyethylene Glycol 3350 [Miralax] 17 gm PO DAILY 10/30/17 11/02/17 History Allergies Allergy/AdvReac Type Severity Reaction Status Date / Time Penicillins Allergy Rash/Hives Verified 11/02/17 11:16 Physical Exam Vitals: Vital Signs Temp Pulse Pulse Resp BP Pulse Ox 11/03/17 12:28 92 11/03/17 12:13 90 11/03/17 11:20 97.8 F 80 20 172/71 95 11/03/17 08:50 94 11/03/17 08:40 92 11/03/17 08:29 92 11/03/17 08:22 97.5 F L 88 16 124/60 95 11/03/17 03:42 93 20 11/03/17 03:41 93 20 166/70 97 11/03/17 00:00 97.7 F 96 18 143/65 95 11/02/17 20:00 98.5 F 108 H 22 129/62 95 11/02/17 19:25 86 18 11/02/17 19:15 84 18 11/02/17 15:58 88 18 11/02/17 15:47 87 20 99 11/02/17 15:40 80 14 141/78 97 11/02/17 13:30 78 16 148/67 11/02/17 13:10 80 16 141/61 98 11/02/17 12:55 78 14 152/72 98 Intake and Output 11/02/17 11/03/17 11/03/17 22:59 06:59 14:59 Intake Total 560 880 Output Total 200 385 Balance -200 175 880 Intake: IV 160 Lactated Ringers 1,000 ml 160 @ 20 mls/hr IV .Q24H [facility] Rx#:[id number] Intake, IV Titration 120 Amount Dextrose 5%-0.45% NaCl 1, 120 000 ml @ 40 mls/hr IV . Q24H [facility] Rx#:[id number] Oral 400 760 Output: Chest Tube Drainage 100 110 Chest Tube Right 100 110 Drainage 100 Right Lower Chest 100 Urine 275 Other: Voiding Method Indwelling Catheter Indwelling Catheter Indwelling Catheter Weight 93 kg - Constitutional General appearance: no acute distress, obese - EENT Eyes: EOMI, normal appearance ENT: normal oropharynx Ears: bilateral: normal - Neck Carotids: bilateral: upstroke normal, bruit absent Thyroid: bilateral: normal size - Respiratory Respiratory: bilateral: CTA - Cardiovascular Heart sounds: normal: S1, S2 - Gastrointestinal General gastrointestinal: normal bowel sounds, soft - Integumentary Integumentary: normal - Neurologic Normal neuro exam Neurologic: CNII-XII intact - Musculoskeletal Musculoskeletal: gait normal, generalized weakness, strength equal bilaterally - Psychiatric Psychiatric: A&O x's 3, appropriate affect, intact judgment & insight Results - Laboratory Findings CBC and BMP: 11/03/17 06:04 11/03/17 06:04 Abnormal lab findings: Abnormal Labs 11/03/17 06:04 BUN 19 H Glucose 131 H - Diagnostic Findings Chest x-ray: report reviewed, image reviewed (Prior data including radiographic studies reviewed as well) Assessment and Plan Assessment: 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
--- NOTE | 2017-11-03 13:02 | P.PN ---
Subjective Progress Note Date: 11/03/17 Principal diagnosis: Right upper lobe adenocarcinoma status post lobectomy, mild to moderate COPD, chronic persistent asthma, morbid obesity, hypertension, dyslipidemia 11/03/2017, patient seen eval examined during the rounds she is less uncomfortable today severe due to pain is improved she has been doing deep breathing sense incentive spirometry but cannot go more than 500 600 mL laboratory data and radiographic studies and medications reviewed, final path report of lymph node dissection for mediastinal lymph node is pending, the chest x-ray performed earlier today revealed chronic parenchymal changes stable right apical chest tube and no air leak in the chest tube as noted Objective - Vital Signs Vital signs: Vital Signs Temp 97.8 F 11/03/17 11:20 Pulse 92 11/03/17 12:28 Resp 20 11/03/17 11:20 BP 172/71 11/03/17 11:20 Pulse Ox 95 11/03/17 11:20 Intake & Output 11/02/17 11/03/17 11/03/17 18:59 06:59 18:59 Intake Total 1880 560 880 Output Total 165 585 Balance 1715 -25 880 Weight 93 kg Intake: IV 1800 160 Lactated Ringers 1,000 ml 160 @ 20 mls/hr IV .Q24H [facility] Rx#:[id number] Intake, IV Titration 80 120 Amount Dextrose 5%-0.45% NaCl 1, 120 000 ml @ 40 mls/hr IV . Q24H [facility] Rx#:[id number] Lactated Ringers 1,000 ml 80 @ 20 mls/hr IV .Q24H [facility] Rx#:[id number] Oral 400 760 Output: Chest Tube Drainage 210 Chest Tube Right 210 Drainage 100 Right Lower Chest 100 Urine 140 275 Estimated Blood Loss 25 Other: Voiding Method Indwelling Catheter Indwelling Catheter Indwelling Catheter - Constitutional General appearance: Present: disheveled, obese - EENT Eyes: Present: EOMI, normal appearance Ears: bilateral: normal - Neck Neck: Present: normal ROM Carotids: bilateral: upstroke normal, bruit absent Thyroid: bilateral: normal size - Respiratory Respiratory: bilateral: CTA, diminished (Predominantly at the bases), negative: dullness, rales, rhonchi, wheezing - Cardiovascular Heart sounds: normal: S1, S2 - Gastrointestinal General gastrointestinal: Present: normal bowel sounds, soft - Integumentary Integumentary: Present: normal, normal turgor - Neurologic Neurologic Comment(s): Normal neuro exam Neurologic: Present: CNII-XII intact - Musculoskeletal Musculoskeletal: Present: gait normal, generalized weakness, strength equal bilaterally - Psychiatric Psychiatric: Present: A&O x's 3, appropriate affect, intact judgment & insight - Labs CBC & Chem 7: 11/03/17 06:04 11/03/17 06:04 Labs: Abnormal Lab Results - Last 24 Hours (Table) 11/03/17 Range/Units 06:04 BUN 19 H (7-17) mg/dL Glucose 131 H (74-99) mg/dL - Imaging and Cardiology Chest x-ray: report reviewed, image reviewed Assessment and Plan Assessment: 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 Time with Patient: Greater than 30
--- NOTE | 2017-11-03 13:08 | P.PN ---
Subjective Progress Note Date: 11/03/17 Principal diagnosis: Right upper lobe spiculated mass. Previous history of tobacco dependence. COPD with a preoperative FEV1 of 68% of predicted. Previous medical history of asthma, hypertension, osteoarthritis. Morbid obesity. POD #1 robotic assisted thoracoscopic right upper lobectomy with mediastinal lymph node dissection. Patient's currently sitting up in bed in no acute distress. States pain is better controlled, denies shortness of breath. Requires much motivation to move and get out of bed. Objective - Vital Signs Vital signs: Vital Signs Temp 97.8 F 11/03/17 11:20 Pulse 92 11/03/17 12:28 Resp 20 11/03/17 11:20 BP 172/71 11/03/17 11:20 Pulse Ox 95 11/03/17 11:20 Intake & Output 11/02/17 11/03/17 11/03/17 18:59 06:59 18:59 Intake Total 1880 560 880 Output Total 165 585 Balance 1715 -25 880 Weight 93 kg Intake: IV 1800 160 Lactated Ringers 1,000 ml 160 @ 20 mls/hr IV .Q24H [facility] Rx#:[id number] Intake, IV Titration 80 120 Amount Dextrose 5%-0.45% NaCl 1, 120 000 ml @ 40 mls/hr IV . Q24H [facility] Rx#:[id number] Lactated Ringers 1,000 ml 80 @ 20 mls/hr IV .Q24H [facility] Rx#:[id number] Oral 400 760 Output: Chest Tube Drainage 210 Chest Tube Right 210 Drainage 100 Right Lower Chest 100 Urine 140 275 Estimated Blood Loss 25 Other: Voiding Method Indwelling Catheter Indwelling Catheter Indwelling Catheter - Constitutional General appearance: Present: cooperative, no acute distress, obese - Respiratory Details: Lungs sounds diminished bilaterally, right greater than left. Respirations even , nonlabored. Currently on 3 L nasal cannula oxygen saturation 97%. Only able to achieve 500 mL on incentive spirometry. Weak cough. Right pleural chest tube placed to waterseal this morning, 110 mL serous drainage overnight, 400 mL since surgery. No air leak present. - Cardiovascular Details: S1, S2 present. Regular rate and rhythm, sinus rhythm on telemetry. Palpable peripheral pulses bilaterally. No edema present. No calf pain or tenderness noted. SCDs present. - Gastrointestinal Gastrointestinal Comment(s): Abdomen soft, nontender, nondistended. Active bowel sounds 4 quadrants. Tolerating diet. - Genitourinary Genitourinary Comment(s): Monae still present draining clear, yellow urine. - Integumentary Integumentary Comment(s): Skin is warm and dry with evidence of good perfusion. - Neurologic Neurologic: Present: CNII-XII intact - Musculoskeletal Musculoskeletal: Present: generalized weakness - Psychiatric Psychiatric: Present: A&O x's 3, appropriate affect, intact judgment & insight - Allied health notes Allied health notes reviewed: nursing - Labs CBC & Chem 7: 11/03/17 06:04 11/03/17 06:04 Labs: Abnormal Lab Results - Last 24 Hours (Table) 11/03/17 Range/Units 06:04 BUN 19 H (7-17) mg/dL Glucose 131 H (74-99) mg/dL - Imaging and Cardiology Chest x-ray: report reviewed, image reviewed Assessment and Plan (1) Mass of upper lobe of right lung Current Visit: Yes Status: Chronic Code(s): R91.8 - OTHER NONSPECIFIC ABNORMAL FINDING OF LUNG FIELD SNOMED Code(s): 270421859 (2) Tobacco dependence in remission Current Visit: No Status: Ruled-out Code(s): F17.201 - NICOTINE DEPENDENCE, UNSPECIFIED, IN REMISSION SNOMED Code(s): 250588683 (3) COPD (chronic obstructive pulmonary disease) Current Visit: Yes Status: Chronic Code(s): J44.9 - CHRONIC OBSTRUCTIVE PULMONARY DISEASE, UNSPECIFIED SNOMED Code(s): 36319322 (4) Hypertension Current Visit: Yes Status: Chronic Code(s): I10 - ESSENTIAL (PRIMARY) HYPERTENSION SNOMED Code(s): 46037447 (5) Morbid obesity Current Visit: Yes Status: Chronic Code(s): E66.01 - MORBID (SEVERE) OBESITY DUE TO EXCESS CALORIES SNOMED Code(s): 434182128 Plan: 1. Continue chest tube to waterseal for another 24 hours. Will monitor output and for air leak. 2. Daily chest x-rays. 3. Wean O2 as tolerated. Encourage incentive spirometry use 10 times every hour while awake. 4. Pain control with ordered medications. 5. Discontinue Monae catheter. 6. Increase activity, ambulate in hallway. PT will be ordered. 7. Medical management per Dr. Saul. 8. More recommendations to follow. Time with Patient: Greater than 30
--- NOTE | 2017-11-03 15:17 | PN ---
PROGRESS NOTE SUBJECTIVE: This is a 77-year-old white female with lung cancer status post lobectomy. She was having incisional pain and difficulty breathing. She is on home medicines of Coreg, Lipitor, aspirin, Toradol, Claritin, Singulair, Zofran, Perforomist. Temp 97.8, pulse 88, respiratory rate 20, blood pressure 172/71, 95% on 2 L. CARDIOVASCULAR: S1, S2. LUNGS: Decreased breath sounds. HEMATOLOGY: Negative Homans. PSYCH: Fair mood and affect. NEUROLOGIC: Alert and orient x3. ASSESSMENT: 1. Right upper lobe adenocarcinoma. 2. Chronic obstructive pulmonary disease, emphysema. 3. Obesity. 4. Hypertension. 5. Dyslipidemia. 6. Chronic persistent asthma. Continue blood pressure medications, updraft treatments, PT, OT. Continue current treatment. MMODL / IJN: [id number] /
[2017-11-03] MEDS: MONTELUKAST 10 MG TAB PO SCH (20:30)
[2017-11-03] MEDS: ATORVASTATIN 40 MG TAB PO SCH (20:30)
[2017-11-04] MEDS: KETOROLAC 30 MG/ML 1 ML VIAL IVP SCH (05:55)
[2017-11-04] MEDS: CARVEDILOL 3.125 MG TAB PO SCH ×2 (06:41→17:48)
--- NOTE | 2017-11-04 07:06 | XR ---
EXAMINATION TYPE: XR chest 2V DATE OF EXAM: 11/04/2017 HISTORY: post lobectomy. REFERENCE: Previous study dated 11/03/2017. FINDINGS: The right pleural drain remains in place. There is volume loss in the right lung. The left lung is clear. The heart is enlarged. I could not ex clude small effusions. IMPRESSION: NO SIGNIFICANT INTERVAL CHANGE IN APPEARANCE THE CHEST.
[2017-11-04] MEDS ORDERED: ACETAMINOPHEN TAB 325 MG TAB PO PRN (07:20)
[2017-11-04] MEDS: ASPIRIN 81 MG PO SCH (08:07)
[2017-11-04] MEDS: FAMOTIDINE 20 MG TAB PO SCH ×2 (08:07→21:29)
[2017-11-04] MEDS: HEPARIN SODIUM,PORCINE 5,000 UNIT/ML 1 ML VIAL SQ SCH ×3 (08:07→23:17)
[2017-11-04] MEDS: LORATADINE 10 MG TAB PO SCH (08:08)
[2017-11-04] MEDS: POLYETHYLENE GLYCOL 3350 17 GM POWD.PACK PO SCH (08:08)
[2017-11-04] MEDS: ACETYLCYSTEINE 800 MG/4 ML VIAL INHALATION SCH ×4 (08:11→20:20)
[2017-11-04] MEDS: IPRATROPIUM-ALBUTEROL 3 ML NEB IH SCH ×4 (08:11→20:20)
[2017-11-04] MEDS: FORMOTEROL FUMARATE 20 MCG/2 ML NEBU INHALATION SCH ×2 (08:11→20:18)
[2017-11-04] MEDS: traMADol 50 MG TAB PO SCH ×3 (08:12→21:28)
--- NOTE | 2017-11-04 08:37 | P.PN ---
Subjective Progress Note Date: 11/04/17 Principal diagnosis: Right upper lobe adenocarcinoma status post lobectomy, mild to moderate COPD, chronic persistent asthma, morbid obesity, hypertension, dyslipidemia 11/04/2017, patient seen harpal examined during the rounds still have shortness of breath and some pain however severity has significantly improved patient able to get up with assistance I-S is round 500-600 mL Trinity denies any cough or sputum production medications and laboratory data reviewed 11/03/2017, patient seen harpal examined during the rounds she is less uncomfortable today severe due to pain is improved she has been doing deep breathing sense incentive spirometry but cannot go more than 500 600 mL laboratory data and radiographic studies and medications reviewed, final path report of lymph node dissection for mediastinal lymph node is pending, the chest x-ray performed earlier today revealed chronic parenchymal changes stable right apical chest tube and no air leak in the chest tube as noted 77-year-old female well-known to me this patient has been incidentally found to have right upper lobe mass she underwent a CT-guided biopsy of the mass which was found to be adenocarcinoma patient is status post PET scan PFT postbiopsy had a small pneumothorax was resolving spontaneously patient has been admitted electively in the hospital for a right upper lobe mass resection and lymph node dissection, patient tolerated the surgery well postoperatively has been 6 a venous extubated does have some postoperative pain otherwise denies any nausea vomiting denies any cough or sputum production denies any night sweats fever or chills, for ope Objective - Vital Signs Vital signs: Vital Signs Temp 98.4 F 11/04/17 08:00 Pulse 92 11/04/17 08:27 Resp 20 11/04/17 08:00 BP 99/53 11/04/17 08:00 Pulse Ox 97 11/04/17 08:00 Intake & Output 11/03/17 11/04/17 11/04/17 18:59 06:59 18:59 Intake Total 880 Output Total 100 325 Balance 780 -325 Weight 85.8 kg Intake: Intake, IV Titration 120 Amount Dextrose 5%-0.45% NaCl 1, 120 000 ml @ 40 mls/hr IV . Q24H [facility] Rx#:[id number] Oral 760 Output: Drainage 225 Right Lower Chest 225 Urine 100 100 Uretheral (Monae) 100 Other: Voiding Method Indwelling Catheter Toilet # Voids 2 - Exam - Constitutional General appearance: Present: disheveled, obese - EENT Eyes: Present: EOMI, normal appearance Ears: bilateral: normal - Neck Neck: Present: normal ROM Carotids: bilateral: upstroke normal, bruit absent Thyroid: bilateral: normal size - Respiratory Respiratory: bilateral: CTA, diminished (Predominantly at the bases), negative: dullness, rales, rhonchi, wheezing - Cardiovascular Heart sounds: normal: S1, S2 - Gastrointestinal General gastrointestinal: Present: normal bowel sounds, soft - Integumentary Integumentary: Present: normal, normal turgor - Neurologic Neurologic Comment(s): Normal neuro exam Neurologic: Present: CNII-XII intact - Musculoskeletal Musculoskeletal: Present: gait normal, generalized weakness, strength equal bilaterally - Psychiatric Psychiatric: Present: A&O x's 3, appropriate affect, intact judgment & insight - Labs CBC & Chem 7: 11/03/17 06:04 11/03/17 06:04 - Imaging and Cardiology Chest x-ray: report reviewed, image reviewed (Chest x-ray overall remains unchanged compared to yesterday x-ray small basal effusion cannot be excluded) Assessment and Plan Assessment: Right upper lobe adenocarcinoma status post to right upper lobe resection with mediastinal lymph node dissection Small right-sided pleural effusion Mild to moderate COPD emphysema Obesity Hypertension and hypertensive cardiovascular disease Dyslipidemia Chronic persistent asthma Plan: Gentle rehydration Bronchodilators as tolerated Continue deep venous thrombosis prophylaxis and peptic ulcer disease prophylaxis Follow-up on final path report Pain control Deep breathing exercises incentive spirometry Increase activity as tolerated Further recommendations pending plan of care as per clinical response of the patient Time with Patient: Greater than 30
--- NOTE | 2017-11-04 12:44 | P.PN ---
Subjective Progress Note Date: 11/04/17 Principal diagnosis: Right upper lobe spiculated mass. Previous history of tobacco dependence. COPD with a preoperative FEV1 of 68% of predicted. Previous medical history of asthma, hypertension, osteoarthritis. Morbid obesity. POD #2 robotic assisted thoracoscopic right upper lobectomy with mediastinal lymph node dissection. Patient's currently sitting up in chair in no acute distress. States pain is better controlled, denies shortness of breath. Requires much motivation to move and stay out of bed. Objective - Vital Signs Vital signs: Vital Signs Temp 97.4 F L 11/04/17 11:05 Pulse 96 11/04/17 12:26 Resp 20 11/04/17 11:05 BP 109/53 11/04/17 11:05 Pulse Ox 100 11/04/17 11:05 Intake & Output 11/03/17 11/04/17 11/04/17 18:59 06:59 18:59 Intake Total 880 Output Total 100 325 15 Balance 780 -325 -15 Weight 85.8 kg Intake: Intake, IV Titration 120 Amount Dextrose 5%-0.45% NaCl 1, 120 000 ml @ 40 mls/hr IV . Q24H [facility] Rx#:[id number] Oral 760 Output: Chest Tube Drainage 15 Chest Tube Right 15 Drainage 225 Right Lower Chest 225 Urine 100 100 Uretheral (Monae) 100 Other: Voiding Method Indwelling Catheter Toilet Toilet # Voids 2 - Constitutional General appearance: Present: cooperative, no acute distress, obese - Respiratory Details: Lungs sounds diminished bilaterally, right greater than left. Respirations even , nonlabored. Currently on 3 L nasal cannula oxygen saturation 97%. Only able to achieve 500 mL on incentive spirometry. Weak cough. Right pleural chest tube to waterseal, 350 mL in the last 24 hours. Smaller intermittent leak present with forceful coughing. - Cardiovascular Details: S1, S2 present. Regular rate and rhythm, sinus rhythm on telemetry. Palpable peripheral pulses bilaterally. No edema present. No calf pain or tenderness noted. SCDs present. - Gastrointestinal Gastrointestinal Comment(s): Abdomen soft, nontender, nondistended. Active bowel sounds 4 quadrants. Tolerating diet. - Genitourinary Genitourinary Comment(s): Monae discontinued yesterday. Patient voiding clear, yellow urine. - Integumentary Integumentary Comment(s): Skin is warm and dry with evidence of good perfusion. - Neurologic Neurologic: Present: CNII-XII intact - Musculoskeletal Musculoskeletal: Present: strength equal bilaterally - Psychiatric Psychiatric: Present: A&O x's 3, appropriate affect, intact judgment & insight - Allied health notes Allied health notes reviewed: nursing - Labs CBC & Chem 7: 11/03/17 06:04 11/03/17 06:04 - Imaging and Cardiology Chest x-ray: report reviewed, image reviewed Assessment and Plan (1) Mass of upper lobe of right lung Current Visit: Yes Status: Chronic Code(s): R91.8 - OTHER NONSPECIFIC ABNORMAL FINDING OF LUNG FIELD SNOMED Code(s): 697553436 (2) Tobacco dependence in remission Current Visit: No Status: Ruled-out Code(s): F17.201 - NICOTINE DEPENDENCE, UNSPECIFIED, IN REMISSION SNOMED Code(s): 327156092 (3) COPD (chronic obstructive pulmonary disease) Current Visit: Yes Status: Chronic Code(s): J44.9 - CHRONIC OBSTRUCTIVE PULMONARY DISEASE, UNSPECIFIED SNOMED Code(s): 38497691 (4) Hypertension Current Visit: Yes Status: Chronic Code(s): I10 - ESSENTIAL (PRIMARY) HYPERTENSION SNOMED Code(s): 42355306 (5) Morbid obesity Current Visit: Yes Status: Chronic Code(s): E66.01 - MORBID (SEVERE) OBESITY DUE TO EXCESS CALORIES SNOMED Code(s): 910081604 Plan: 1. Continue chest tube to waterseal for another 24 hours. Will monitor output and for air leak. Pathology pending. 2. Daily chest x-rays. 3. Wean O2 as tolerated. Encourage incentive spirometry use 10 times every hour while awake. Patient needs aggressive pulmonary toileting. 4. Pain control with ordered medications. 5. Increase activity, ambulate in hallway. PT ordered. 6. Medical management per Dr. Saul. 7. More recommendations to follow. Time with Patient: Greater than 30
[2017-11-04] MEDS: MONTELUKAST 10 MG TAB PO SCH (21:28)
[2017-11-04] MEDS: ALPRAZolam 0.5 MG TAB PO SCH (21:28)
[2017-11-04] MEDS: ATORVASTATIN 40 MG TAB PO SCH (21:29)
[2017-11-05] MEDS: CARVEDILOL 3.125 MG TAB PO SCH (06:29)
[2017-11-05] MEDS ORDERED: BISACODYL 10 MG SUPP RECTAL PRN (07:00)
--- NOTE | 2017-11-05 07:03 | XR ---
EXAMINATION TYPE: XR chest 2V DATE OF EXAM: 11/05/2017 HISTORY: post vats. REFERENCE: Previous study dated 11/04/2017. FINDINGS: The patient's right pleural drain has been removed. There is an air-fluid level in the uppe r right thorax. The left lung appears clear. The heart is enlarged. There is atelectatic change prese nt in the right middle lobe. IMPRESSION: AIR-FLUID LEVEL IN THE RIGHT CHEST SUGGESTING A HYDROPNEUMOTHORAX.
[2017-11-05] MEDS: FAMOTIDINE 20 MG TAB PO SCH (07:58)
[2017-11-05] MEDS: ASPIRIN 81 MG PO SCH (07:58)
[2017-11-05] MEDS: HEPARIN SODIUM,PORCINE 5,000 UNIT/ML 1 ML VIAL SQ SCH (07:58)
[2017-11-05] MEDS: POLYETHYLENE GLYCOL 3350 17 GM POWD.PACK PO SCH (07:59)
[2017-11-05] MEDS: LORATADINE 10 MG TAB PO SCH (07:59)
[2017-11-05] MEDS: traMADol 50 MG TAB PO SCH (08:01)
[2017-11-05] MEDS ORDERED: SENNOSIDES 8.6 MG TAB PO SCH (09:00)
[2017-11-05] MEDS: IPRATROPIUM-ALBUTEROL 3 ML NEB IH SCH (09:03)
[2017-11-05] MEDS: ACETYLCYSTEINE 800 MG/4 ML VIAL INHALATION SCH (09:03)
[2017-11-05] MEDS: FORMOTEROL FUMARATE 20 MCG/2 ML NEBU INHALATION SCH (09:03)
[2017-11-05 09:33] VITALS: RESP 18
--- NOTE | 2017-11-05 09:41 | P.PN ---
Subjective Progress Note Date: 11/05/17 Principal diagnosis: Right upper lobe spiculated mass. Previous history of tobacco dependence. COPD with a preoperative FEV1 of 68% of predicted. Previous medical history of asthma, hypertension, osteoarthritis. Morbid obesity. POD #3 robotic assisted thoracoscopic right upper lobectomy with mediastinal lymph node dissection. Patient's currently sitting up in chair in no acute distress. States pain is better controlled, denies shortness of breath. Requires much motivation to move and stay out of bed. Chest tube discontinued yesterday, which patient states has helped her feel much better. Objective - Vital Signs Vital signs: Vital Signs Temp 97 F L 11/05/17 08:00 Pulse 82 11/05/17 08:00 Resp 20 11/05/17 08:00 BP 107/64 11/05/17 08:00 Pulse Ox 88 L 11/05/17 08:00 Intake & Output 11/04/17 11/05/17 11/05/17 18:59 06:59 18:59 Intake Total 660 10 Output Total 816 Balance -156 10 Weight 85.3 kg Intake: IV 10 0.9 10 Oral 660 Output: Chest Tube Drainage 15 Chest Tube Right 15 Urine 801 Other: Voiding Method Toilet Toilet # Voids 2 3 - Constitutional General appearance: Present: cooperative, no acute distress, obese - Respiratory Details: Lungs sounds diminished bilaterally, right greater than left. Respirations even , nonlabored. Currently on room air with oxygen saturation 92%. Only able to achieve 250-500 mL on incentive spirometry. Weak cough. - Cardiovascular Details: S1, S2 present. Regular rate and rhythm, sinus rhythm on telemetry. Palpable peripheral pulses bilaterally. No edema present. No calf pain or tenderness noted. SCDs present. - Gastrointestinal Gastrointestinal Comment(s): Abdomen soft, nontender, nondistended. Active bowel sounds 4 quadrants. Tolerating diet. - Genitourinary Genitourinary Comment(s): Continues to void clear, yellow urine. - Integumentary Integumentary Comment(s): Skin is warm and dry with evidence of good perfusion. - Neurologic Neurologic: Present: CNII-XII intact - Musculoskeletal Musculoskeletal Comment(s): Ambulating to and from the bathroom with a walker. - Psychiatric Psychiatric: Present: A&O x's 3, appropriate affect, intact judgment & insight - Allied health notes Allied health notes reviewed: nursing - Labs CBC & Chem 7: 11/03/17 06:04 11/03/17 06:04 - Imaging and Cardiology Chest x-ray: report reviewed, image reviewed Assessment and Plan (1) Mass of upper lobe of right lung Current Visit: Yes Status: Chronic Code(s): R91.8 - OTHER NONSPECIFIC ABNORMAL FINDING OF LUNG FIELD SNOMED Code(s): 412375471 (2) Tobacco dependence in remission Current Visit: No Status: Ruled-out Code(s): F17.201 - NICOTINE DEPENDENCE, UNSPECIFIED, IN REMISSION SNOMED Code(s): 685565463 (3) COPD (chronic obstructive pulmonary disease) Current Visit: Yes Status: Chronic Code(s): J44.9 - CHRONIC OBSTRUCTIVE PULMONARY DISEASE, UNSPECIFIED SNOMED Code(s): 53003644 (4) Hypertension Current Visit: Yes Status: Chronic Code(s): I10 - ESSENTIAL (PRIMARY) HYPERTENSION SNOMED Code(s): 88748227 (5) Morbid obesity Current Visit: Yes Status: Chronic Code(s): E66.01 - MORBID (SEVERE) OBESITY DUE TO EXCESS CALORIES SNOMED Code(s): 437727050 Plan: 1. Chest x-ray reviewed this morning. Pathology pending. 2. Encourage incentive spirometry use 10 times every hour while awake. Patient needs aggressive pulmonary toileting. 3. Pain control with ordered medications. 4. Increase activity, ambulate in hallway. PT ordered. 5. Medical management per Dr. Saul. 6. More recommendations to follow. Likely will discharge to home soon. Appointment will be made to follow-up with Dr. Mix, and Dr. Yang. Time with Patient: Greater than 30
[2017-11-05 10:58] VITALS: BP 124/57; PULSE 92; TEMP 97.7
--- NOTE | 2017-11-05 13:54 | P.DS ---
Providers Date of admission: 11/02/17 06:10 Expected date of discharge: 11/05/17 Attending physician: Jabari Mix Consults: 11/02/17 13:04 Consult Physician Routine Consulting Provider: Pablo Yang Consult Reason/Comments: pulmonary managment Do you want consulting provider notified?: Yes Placement Type Exists?: Yes Consult Physician Routine Consulting Provider: Billy Saul Reason/Comments: medical managment Do you want consulting provider notified?: Yes Placement Type Exists?: Yes Primary care physician: Billy Saul - Discharge Diagnosis(es) (1) Mass of upper lobe of right lung Status: Chronic (2) Tobacco dependence in remission Status: Ruled-out (3) COPD (chronic obstructive pulmonary disease) Status: Chronic (4) Hypertension Status: Chronic (5) Morbid obesity Status: Chronic Hospital Course: FINAL DIAGNOSIS: 1. Right upper lobe spiculated mass 2. Previous history of tobacco dependence 3. COPD with preoperative FEV1 60% of expected 4. Hypertension 5. Osteoarthritis 6. Morbid obesity PRINCIPAL PROCEDURE: 1. Elective robotic assisted thoracoscopic right upper lobectomy with mediastinal lymph node dissection HISTORY OF PRESENT ILLNESS: This is 77-year-old female patient who follows with Dr. Billy Saul on an outpatient basis. She had a screening CT performed by Dr. Saul in early August which demonstrated a spiculated mass in the posterior segment of the right upper lobe. The diameter of the mass was 1.3 cm. PET scan was performed and demonstrated significant uptake in the mass, no evidence of metastasis. A biopsy was performed demonstrating adenocarcinoma. The patient did have a stress test which demonstrated mild evidence of reversible ischemia in the apex, she was evaluated by Dr. Greenwood could find no significant evidence of coronary artery disease and he cleared the patient for surgery. Pulmonary function tests were performed by Dr. Yang demonstrating moderate obstructive lung disease with an FEV1 68% of predicted and DLCO 53% of predicted. These numbers were consistent with the ability to tolerate lobectomy. The patient had no symptoms of shortness of breath and had recently quit smoking after being told she had a lung mass. HOSPITAL COURSE: The patient was brought to the hospital on 11/02/2017, taken to the preoperative area, prepared in the usual fashion, and subsequently taken to the operating room where Dr. Mix performed an elective robotic right upper lobectomy with mediastinal lymph node dissection. Upon completion of surgery the patient was extubated, transferred to the recovery room where she was monitored hemodynamically, and where she was eventually admitted to [address] [place] [address] for further monitoring. Her oxygen was titrated down, her pain was controlled, she was tolerating oral intake, she was ambulatory with a walker , her lung demonstrated reexpansion on follow-up chest x-rays. Right pleural chest tube was discontinued on postoperative day #2. Repeat chest x-ray was satisfactory. She was ready to be discharged to home on postoperative day #3. She received written and verbal instruction regarding her medications, activity restrictions, signs and symptoms requiring physician notification, and follow- up appointments. COMPLICATIONS: The patient experienced no postoperative complications. Plan - Discharge Summary Discharge Rx Participant: Yes New Discharge Prescriptions: Continue Famotidine [Pepcid] 10 mg PO BID Cetirizine HCl [Zyrtec] 10 mg PO DAILY ALPRAZolam [Xanax] 0.5 mg PO HS Montelukast [Singulair] 10 mg PO HS HYDROcodone/APAP 5-325MG [[place] 5-325] 1 tab PO Q6HR PRN #15 tab PRN Reason: Pain Ibuprofen [Motrin] 600 mg PO Q8HR PRN PRN Reason: Pain Carvedilol [Coreg] 3.125 mg PO BID Atorvastatin Calcium [Lipitor] 40 mg PO HS Aspirin [Adult Low Dose Aspirin EC] 81 mg PO DAILY Albuterol Inhaler [Ventolin Hfa Inhaler] 1 puff INHALATION RT-Q6H PRN PRN Reason: Allergy Symptoms Polyethylene Glycol 3350 [Miralax] 17 gm PO DAILY Discharge Medication List ALPRAZolam [Xanax] 0.5 mg PO HS 03/19/14 [History] Cetirizine HCl [Zyrtec] 10 mg PO DAILY 03/19/14 [History] Famotidine [Pepcid] 10 mg PO BID 03/19/14 [History] Montelukast [Singulair] 10 mg PO HS 09/15/17 [History] HYDROcodone/APAP 5-325MG [[place] 5-325] 1 tab PO Q6HR PRN #15 tab 10/22/17 [Rx] Albuterol Inhaler [Ventolin Hfa Inhaler] 1 puff INHALATION RT-Q6H PRN 10/30/17 [ History] Aspirin [Adult Low Dose Aspirin EC] 81 mg PO DAILY 10/30/17 [History] Atorvastatin Calcium [Lipitor] 40 mg PO HS 10/30/17 [History] Carvedilol [Coreg] 3.125 mg PO BID 10/30/17 [History] Ibuprofen [Motrin] 600 mg PO Q8HR PRN 10/30/17 [History] Polyethylene Glycol 3350 [Miralax] 17 gm PO DAILY 10/30/17 [History] Follow up Appointment(s)/Referral(s): Billy Saul MD [Primary Care Provider] - 1 Week (Pt to make appointment as the office is closed ) Jabari Mix MD [STAFF PHYSICIAN] - 11/16/17 (will call with appointment time ) Pablo Yang MD [STAFF PHYSICIAN] - 1 Week (Pt to make appointment as the office is closed.) Patient Instructions/Handouts: Thoracotomy (DC), COPD (Chronic Obstructive Pulmonary Disease) (DC) Activity/Diet/Wound Care/Special Instructions: DISCHARGE INSTRUCTIONS: 1. No driving for 2 weeks, or until physician gives their ok. 2. The patient should sleep in their own bed, no medical bed needed. 3. Stairs are not an issue. Go slowly, using handrail and take 1 step at a time. 4. No lifting, pushing, or pulling more than 10 pounds for 2 weeks. The physician will advise of any restriction changes. 5. Continue pain control per as needed orders. 6. Continue with incentive spirometry and splinting until otherwise directed by the physician. 7. May shower daily beginning November 06. 8. May remove right chest dressing November 06. Routine incision care. No powders, lotions, ointments on incisions. 9. Please call surgeon/STEREO PLOTTER OPERATOR for temp greater than 101 F or purulent drainage from incisions. Discharge Disposition: HOME SELF-CARE
--- NOTE | 2017-11-06 14:48 | CDI ---
Last Revision, June 2017 Documentation Clarification Form Date: 11/06/17 From: Esme Betito Lelo Machado, Staff Respiratory Therapist between 8:30 am & 5 pm Mela Admit Date: 11/02/2017 6:10:00 AM Patient Name: Jana Arellano Visit Number: [id number] Discharge Date: 10/2217 ATTENTION: The Clinical Documentation Specialists (CDI) and [facility] Coding Staff appreciate your assistance in clarifying documentation. Please respond to the clarification below the line at the bottom and electronically sign. The CDI & [facility] Coding staff will review the response and follow-up if needed. Please note: Queries are made part of the Legal Health Record. If you have any questions, please contact the author of this message via ITS. Dr. Pablo Yang Asthma is documented in the pulmonary consult "chronic persistent asthma". Patient history/risk factors: emphysema, smoker, RUL lung ca Radiology: postoperative changes right hemithorax. Home meds: Ventolin Hfa inhaler PRN, In your professional opinion, can you please further specify the severity, if known? Mild intermittent Mild persistent Moderate persistent Severe persistent Other, please specify ____ Unable to determine Please continue to document in your progress notes and discharge summary in order to capture severity of illness and risk of mortality. Include clinical findings that support your diagnosis. MTDD
--- NOTE | 2017-12-07 15:07 | CDI ---
Last Revision, June 2017 Documentation Clarification Form Date: 12/07/17 From: Esme Betito Lelo Machado, Position Classification Specialist Hours-8:30 am & 5 pm Mela Admit Date: 11/02/2017 6:10:00 AM Patient Name: Jana Arellano Visit Number: [id number] Discharge Date: 11/05/17 ATTENTION: The Clinical Documentation Specialists (CDI) and [facility] Coding Staff appreciate your assistance in clarifying documentation. Please respond to the clarification below the line at the bottom and electronically sign. The CDI & [facility] Coding staff will review the response and follow-up if needed. Please note: Queries are made part of the Legal Health Record. If you have any questions, please contact the author of this message via ITS. Dr. Pablo Yang Asthma is documented in the pulmonary consult "chronic persistent asthma". Patient history/risk factors: emphysema, smoker, RUL lung ca Radiology: postoperative changes right hemithorax. Home meds: Ventolin Hfa inhaler PRN, In your professional opinion, can you please further specify the severity, if known? Mild intermittent Mild persistent Moderate persistent Severe persistent Other, please specify ____ Unable to determine Please continue to document in your progress notes and discharge summary in order to capture severity of illness and risk of mortality. Include clinical findings that support your diagnosis. Mild persistent chronic asthma MTDD
== END 2017-11-05 12:55 | disposition home or self-care (01) | DRG 164 ==
LOC: 2ORMAIN 06:10 → 6SEL 11:09
PROVIDERS: ADMIT Thoracic Surgery (Cardiothoracic Vascular Surgery); ATTEND Thoracic Surgery (Cardiothoracic Vascular Surgery)
PROC: 07T74ZZ Resection of Thorax Lymphatic, Percutaneous Endoscopic Approach (ICD-10-PCS; 2017-11-02)
PROC: 8E0W4CZ Robotic Assisted Procedure of Trunk Region, Percutaneous Endoscopic Approach (ICD-10-PCS; 2017-11-02)
PROC: 0BTC4ZZ Resection of Right Upper Lung Lobe, Percutaneous Endoscopic Approach (ICD-10-PCS; principal; 2017-11-02 07:30)
DX: C34.11 Malignant neoplasm of upper lobe, right bronchus or lung (principal); J90 Pleural effusion, not elsewhere classified; E66.01 Morbid (severe) obesity due to excess calories; I11.9 Hypertensive heart disease without heart failure; J43.9 Emphysema, unspecified; J45.30 Mild persistent asthma, uncomplicated; F17.201 Nicotine dependence, unspecified, in remission; E78.5 Hyperlipidemia, unspecified; M19.91 Primary osteoarthritis, unspecified site; R59.1 Generalized enlarged lymph nodes; Z68.34 Body mass index [BMI] 34.0-34.9, adult; Z79.82 Long term (current) use of aspirin; Z79.899 Other long term (current) drug therapy; Z90.710 Acquired absence of both cervix and uterus; Z90.49 Acquired absence of other specified parts of digestive tract; Z86.010 Personal history of colon polyps; Z98.42 Cataract extraction status, left eye; Z98.41 Cataract extraction status, right eye; Z88.0 Allergy status to penicillin; Z82.49 Family history of ischemic heart disease and other diseases of the circulatory system; Z80.0 Family history of malignant neoplasm of digestive organs
CPT/HCPCS: 71045; 71046; 80048; 85025; 86850; 86900; 86901; 88305; 88309; 88341; 88342; 94640; 94760

== ENCOUNTER → 2017-12-27 | Outpatient (CLI) | payer MEDICARE, OTHER ==
[2017-12-27 15:54] LABS: HCT 40.6 % (34.0-46.0); HGB 13.4 gm/dL (11.4-16.0); MCH 29.6 pg (25.0-35.0); MCHC 32.9 g/dL (31.0-37.0); Mean Platelet Volume 7.4; Platelet Count 242 k/uL (150-450); RBC 4.52 m/uL (3.80-5.40); RDW 13.6 % (11.5-15.5); WBC 7.1 k/uL (3.8-10.6)
[2017-12-27 16:19] LABS: Anion Gap 10 mmol/L; Blood Urea Nitrogen 16 mg/dL (7-17); Carbon Dioxide 30 mmol/L (22-30); Chloride 101 mmol/L (98-107); Potassium 5.3 mmol/L (3.5-5.1); Sodium 141 mmol/L (137-145)
== END | disposition home or self-care (01) ==
LOC: LABPAT 14:03
PROVIDERS: ATTEND Internal Medicine Interventional Cardiology
DX: Z01.812 Encounter for preprocedural laboratory examination (principal); R94.30 Abnormal result of cardiovascular function study, unspecified
CPT/HCPCS: 80051; 82565; 84520; 85027

== ENCOUNTER 2018-01-01 06:31 | Day surgery (SDC) | payer MEDICARE, OTHER ==
[2017-12-27 12:05] VITALS: BMI 32.9
[~2018-01-01 06:31] MED LIST changes: +ALPRAZolam 0.25 MG TAB PO PRN; +ALPRAZolam 0.5 MG TAB PO PRN; +ASPIRIN 325 MG TAB PO STA; +ATORVASTATIN 80 MG TAB PO STA; -HYDROmorphone 0.5 MG/0.5 ML SYRINGE IVP PRN; -MORPHINE SULFATE 4 MG/ML SYRINGE IV PRN; +NITROGLYCERIN SL TABS 0.4 MG TAB SUBLINGUAL PRN; -ONDANSETRON 4 MG/2 ML VIAL IVP PRN; +SODIUM CHLORIDE 0.9% 1,000 ML in EMPTY BAG 1 BAG IV ONE; -ceFAZolin 1,000 MG in DEXTROSE/WATER 1 50ML.BAG IV ONE
[2018-01-01] MEDS ORDERED: MIDAZOLAM 2 MG/2 ML VIAL ONE (07:35)
[2018-01-01] MEDS ORDERED: VERAPAMIL 2.5 MG/ML 2 ML AMP ONE (07:36)
[2018-01-01] MEDS ORDERED: SODIUM CHLORIDE 0.9% 1,000 ML IV ONE (07:43)
[2018-01-01] MEDS: MIDAZOLAM 2 MG/2 ML VIAL IV ONE ×2 (07:44→07:59)
[2018-01-01] MEDS ORDERED: LIDOCAINE 2% SYG (PF) 100 MG/5 ML MISCELLANE ONE (07:46)
[2018-01-01] MEDS ORDERED: HEPARIN SODIUM 1,000 UN/ML (10ML VL) ONE (07:48)
[2018-01-01] MEDS: VERAPAMIL SYRINGE (5 MG/10 ML) INTRAARTER ONE ×2 (07:48→08:15)
[2018-01-01] MEDS ORDERED: HEPARIN SODIUM 1,000 UN/ML (10ML VL) IV ONE (07:49)
[2018-01-01] MEDS ORDERED: CLOPIDOGREL 75 MG TAB ONE (08:00)
[2018-01-01] MEDS ORDERED: BIVALIRUDIN BOLUS 250 MG/50 ML IV ONE (08:03)
[2018-01-01] MEDS ORDERED: BIVALIRUDIN 250 MG in SODIUM CHLORIDE 0.9% 50 ML IV ONE (08:04)
[2018-01-01] MEDS ORDERED: CLOPIDOGREL 75 MG TAB PO ONE (08:10)
[2018-01-01] MEDS: NITROGLYCERIN 1000MCG/10ML SYRINGE INTRACORON ONE ×2 (08:11→08:13)
[2018-01-01] MEDS ORDERED: IOPAMIDOL-370 125ML BTL INJ ONE (08:14)
[2018-01-01] MEDS ORDERED: ALBUTEROL NEBULIZED 2.5 MG/3 ML INHALATION PRN (08:20)
[2018-01-01] MEDS ORDERED: ATROPINE SULFATE 0.1 MG/ML 10ML SYRINGE IV PRN (08:21)
[2018-01-01] MEDS ORDERED: NITROGLYCERIN SL TABS 0.4 MG TAB SUBLINGUAL PRN (08:21)
[2018-01-01] MEDS ORDERED: RX INFO: IV CONTRAST WAS GIVEN 1 EACH MISC MISCELLANE PRN (08:21)
[2018-01-01] MEDS ORDERED: MAG HYDROX/AL HYDROX/SIMETH 30 ML CUP PO PRN (08:21)
[2018-01-01] MEDS ORDERED: ZOLPIDEM 5 MG TAB PO PRN (08:21)
[2018-01-01] MEDS ORDERED: SODIUM CHLORIDE 0.9% 1,000 ML IV SCH (08:30)
--- NOTE | 2018-01-01 08:52 | CC ---
CARDIAC CATHETERIZATION REPORT CARDIAC CATHETERIZATION AND PERCUTANEOUS CORONARY INTERVENTION DATE OF SERVICE: 01/01/2018 PERFORMING PHYSICIAN: Rj Booker MD, paper bag press operator. PROCEDURE PERFORMED: 1. Selective right and left coronary angiogram. 2. Left heart catheterization. 3. Successful stenting of the distal RCA using 2.75 x 12 mm Xience NIVIA with good angiographic results. INDICATION: This is a pleasant 77-year-old female patient who sees Dr. Greenwood in the office as an outpatient who was experiencing exertional dyspnea concerning for angina. She underwent a stress test and that revealed apical ischemia and because of that, a heart catheterization was recommended. APPROACH: Right radial artery. COMPLICATION: None. LEVEL OF SEDATION: Moderate with sedation length of 31 minutes. PROCEDURE DESCRIPTION: After obtaining an informed consent, the patient was brought to cardiac sleep lab technologist. The right radial artery was cannulated using micropuncture technique and a micropuncture wire passed easily then I placed a 6-[place] sheath in the right radial artery. After that, I gave the patient mg of heparin IV and 2 mg of verapamil IA. Subsequently I did selective right and left coronary angiogram using JR4 and JL3.5 catheters. Left heart catheterization was performed using the JR4 catheter which flipped into the LV then I did a pullback across the aortic valve. After that I did perform angioplasty of the RCA. Please see a separate paragraph for that. SELECTIVE CORONARY ANGIOGRAM: 1. The RCA is a large caliber vessel and it is a dominant vessel. The RCA in the proximal portion has mild disease only. The mid RCA has intermediate disease only in the range of 50% to 60%. The RCA distally has a tight lesion in the range of 70% to 80%. This is just before the bifurcation into PDA and PLV branches and both are angiographically normal. 2. The left main is angiographically normal. It bifurcates into left circumflex and left anterior descending artery. 3. The left circumflex is a large caliber vessel. It is a nondominant vessel. The proximal circumflex appeared to have mild disease only and gives rise into an OM branch, which is small caliber vessel with mild disease only. The mid circumflex has mild disease only and the circumflex distally appeared to be angiographically normal. 4. The LAD: The proximal LAD appeared to have mild disease only. It gives rise into a medium sized diagonal branch which has an ostial disease in the range of 60% to 70%. The mid LAD appeared to be angiographically normal and the LAD distally appeared to be angiographically normal as well. HEMODYNAMICS: The left ventricular end-diastolic pressure was about 18 to 20 mmHg and no gradient was identified across the aortic valve. PCI OF THE RCA: Anticoagulation was initiated using Angiomax after I checked the ACT and that came in to be around 175. Subsequently I did wire the RCA using a whisper wire. After that, I did balloon angioplasty of the distal RCA using 2.5 x 12 mm balloon and after that I deployed 2.75 x 12 mm Xience NIVIA where the stent was positioned under fluoroscopy guidance and deployed under 18 atmospheres for 20 seconds. The following angiogram showed good angiographic results and the procedure was completed without any complication. CONCLUSION: 1. Calcified right and left coronary system. 2. Critical disease involving the distal right coronary artery with intermediate disease involving the mid right coronary artery. 3. Mild disease involving the left main, left circumflex, and left anterior descending artery as well. 4. Successful stenting of the distal right coronary artery using 2.75 x 12 mm Xience NIVIA with good angiographic results. POSTPROCEDURE MANAGEMENT: 1. Dual antiplatelet therapy. 2. Risk factor modifications. 3. Follow up with the patient. MMODL / IJN: [id number] /
--- NOTE | 2018-01-01 08:55 | LTR ---
January 01, 2018 Re: Jana Arellano Dear Dr. Saul: I did perform a heart catheterization on Ms. Jana Arellano. She was found to have critical disease involving the distal right coronary artery, which was stented with good angiographic results and without any complication. I want to thank you for allowing me to participate in her care and please do not hesitate to call if you have any question or concern. Sincerely, MD DEBBIE Echols / NATALIE: [id number] /
[2018-01-01] MEDS: ALBUTEROL NEBULIZED 2.5 MG/3 ML INHALATION SCH ×3 (09:35→18:57)
[2018-01-01] MEDS: ASPIRIN 81 MG PO SCH (09:54)
[2018-01-01] MEDS: POLYETHYLENE GLYCOL 3350 17 GM POWD.PACK PO SCH (09:55)
[2018-01-01] MEDS: LORATADINE 10 MG TAB PO SCH (09:55)
[2018-01-01] MEDS: CARVEDILOL 3.125 MG TAB PO SCH ×2 (09:55→17:15)
[2018-01-01] MEDS ORDERED: FAMOTIDINE 20 MG TAB PO SCH (18:30)
[2018-01-01] MEDS: SYMBICORT 80-4.5 MCG INHALER INHALATION SCH (18:57)
[2018-01-01] MEDS ORDERED: MONTELUKAST 10 MG TAB PO SCH (21:00)
[2018-01-01] MEDS ORDERED: ALPRAZolam 0.5 MG TAB PO SCH (21:00)
[2018-01-02] MEDS: CARVEDILOL 3.125 MG TAB PO SCH (06:27)
[2018-01-02] MEDS: ALBUTEROL NEBULIZED 2.5 MG/3 ML INHALATION SCH (08:06)
[2018-01-02] MEDS: SYMBICORT 80-4.5 MCG INHALER INHALATION SCH (08:06)
[2018-01-02 08:11] VITALS: RESP 16
[2018-01-02] MEDS: ASPIRIN 81 MG PO SCH (08:34)
[2018-01-02] MEDS: POLYETHYLENE GLYCOL 3350 17 GM POWD.PACK PO SCH (08:34)
[2018-01-02] MEDS: LORATADINE 10 MG TAB PO SCH (08:34)
[2018-01-02] MEDS ORDERED: CLOPIDOGREL 75 MG TAB PO SCH (09:00)
--- NOTE | 2018-01-02 09:05 | DS ---
DISCHARGE SUMMARY ADMISSION DATE: January 01, 2018. DISCHARGE DATE: January 02, 2018 BRIEF HISTORY: This is a pleasant 77-year-old female patient who was experiencing exertional dyspnea concerning for angina and underwent a stress test that revealed inferoapical ischemia. In view of that, a heart catheterization was recommended. The patient underwent a heart catheterization yesterday and was found to have critical disease involving the distal RCA with intermediate disease involving the mid RCA. She underwent successful stenting of the RCA with good angiographic results and without any complication from an arm approach. The patient is going to be discharged home on dual anti-platelet therapy and I will follow up with the patient in the office as an outpatient. MMODL / IJN: [id number] /
[2018-01-02 09:43] VITALS: BP 139/71; PULSE 99; TEMP 96.8
[2018-01-02] MEDS ORDERED: ATORVASTATIN 80 MG TAB PO SCH (21:00)
== END 2018-01-02 10:21 | disposition home or self-care (01) ==
LOC: CATHCVL 06:31 → 6SEL 08:15 → CATHCVL 09:00
PROVIDERS: ATTEND Internal Medicine Interventional Cardiology
DX: I25.10 Atherosclerotic heart disease of native coronary artery without angina pectoris (principal); R94.39 Abnormal result of other cardiovascular function study; E78.00 Pure hypercholesterolemia, unspecified; C34.90 Malignant neoplasm of unspecified part of unspecified bronchus or lung; I27.20 Pulmonary hypertension, unspecified; Z87.891 Personal history of nicotine dependence; Z79.82 Long term (current) use of aspirin; Z79.899 Other long term (current) drug therapy; Z88.0 Allergy status to penicillin; Z82.49 Family history of ischemic heart disease and other diseases of the circulatory system
CPT/HCPCS: 94640 ×4; 94760; 93458; 85347; 84132; C9600; C1769; C1887; C1725; C1874; C1894; J2250; J2001; J1644; J0583; Q9967

== ENCOUNTER → 2018-01-18 | Outpatient (CLI) | payer MEDICARE, OTHER ==
[2018-01-18 15:24] LABS: Blood Urea Nitrogen 13 mg/dL (7-17)
--- NOTE | 2018-01-18 16:32 | CT ---
EXAMINATION TYPE: CT chest w con DATE OF EXAM: 01/18/2018 COMPARISON: NONE HISTORY: Chest pain and difficulty breathing. CT DLP: 810 mGycm. Automated Exposure Control for Dose Reduction was Utilized. TECHNIQUE: CT scan of the thorax is performed following with IV Contrast, patient injected with 100m l mL of Isovue M300. FINDINGS: LUNGS: There is loculated pleural effusion seen anteriorly within the right upper lobe and moderate r ight pleural effusion with minimal amount of associated compressive atelectasis. Prominent epicardial fat pad is seen at the right cardiophrenic angle. Subpleural reticulation is noted bilaterally. Left basilar pulmonary nodule again measures approximately 6 mm, similar to the prior of 08/30/2017 on ser ies 4 image 40. The known right upper lobe pulmonary nodule may be obscured by the pleural effusion. MEDIASTINUM: No pericardial effusion is seen. Moderate three-vessel coronary artery calcifications are seen. Heart is not enlarged. Prominent prevascular lymph nodes are unchanged from the prior measu ring up to 8 mm. No greater than 1 cm short axis lymph node is seen. No axillary adenopathy. Extensiv e calcific and noncalcific atheromatous plaquing of the thoracic aorta is present. Descending thoraci c aorta is upper limits of normal size measuring 2.9 cm. OTHER: Cholesterol containing gallstone is noted. Old fracture deformity is present of the posterior margin of rib 9 on the right that demonstrates callus formation. IMPRESSION: 1. Loculated moderate right pleural effusion with anterior component and obscuration of the known 1.3 cm upper lobe pulmonary nodule. Stability of the left basilar pulmonary nodule measuring 6 mm. No ne w adenopathy or new pulmonary nodules. 2. Cholelithiasis.
== END | disposition home or self-care (01) ==
LOC: RADCTMAIN 14:50
PROVIDERS: ATTEND Family Medicine
DX: J90 Pleural effusion, not elsewhere classified (principal); R91.1 Solitary pulmonary nodule
CPT/HCPCS: 82565; 84520; 71260; 36415; Q9967

== ENCOUNTER 2018-01-23 15:11 | Inpatient (IN) | payer MEDICARE, OTHER ==
[2018-01-23] MEDS: SODIUM CHLORIDE 0.9% 1,000 ML IV SCH (18:53)
[2018-01-23 19:00] LABS: Basophils % (A) 1 %; Eosinophils # (A) 0.4 k/uL (0-0.7); Eosinophils % (A) 7 %; HCT 36.7 % (34.0-46.0); HGB 11.7 gm/dL (11.4-16.0); Hypochromasia Slight; Lymphocytes # (A) 1.4 k/uL (1.0-4.8); Lymphocytes % (A) 23 %; MCH 27.8 pg (25.0-35.0); MCHC 31.8 g/dL (31.0-37.0); MCV 87.4 fL (80.0-100.0); Mean Platelet Volume 7.2; Monocytes # (A) 0.3 k/uL (0-1.0); Monocytes % (A) 5 %; Neutrophils # (A) 3.6 k/uL (1.3-7.7); Neutrophils % (A) 62 %; Platelet Count 257 k/uL (150-450); RDW 13.8 % (11.5-15.5); WBC 5.9 k/uL (3.8-10.6)
[2018-01-23] MEDS: IPRATROPIUM-ALBUTEROL 3 ML NEB INHALATION SCH (19:06)
[2018-01-23] MEDS ORDERED: HYDROcodone/APAP 10-325MG 1 EACH TAB PO PRN (19:17)
[2018-01-23] MEDS ORDERED: ALBUTEROL NEBULIZED 2.5 MG/3 ML INHALATION PRN (19:17)
[2018-01-23] MEDS ORDERED: ACETAMINOPHEN TAB 325 MG TAB PO PRN (19:17)
[2018-01-23 19:18] LABS: INR 1.1 (<1.2); Prothrombin Time 10.8 sec (9.0-12.0)
[2018-01-23 19:20] LABS: ALT 25 U/L (9-52); AST 20 U/L (14-36); Albumin 3.5 g/dL (3.5-5.0); Alkaline Phosphatase 96 U/L (38-126); Anion Gap 10 mmol/L; Blood Urea Nitrogen 16 mg/dL (7-17); Calcium 9.4 mg/dL (8.4-10.2); Carbon Dioxide 31 mmol/L (22-30); Chloride 99 mmol/L (98-107); Glucose 149 mg/dL (74-99); Potassium 4.1 mmol/L (3.5-5.1); Sodium 140 mmol/L (137-145); Total Bilirubin 0.6 mg/dL (0.2-1.3); Total Protein 6.8 g/dL (6.3-8.2)
--- NOTE | 2018-01-23 21:41 | US ---
EXAMINATION TYPE: US chest DATE OF EXAM: 01/23/2018 COMPARISON: NONE CLINICAL HISTORY: Right pleural effusion. Right Lung CA. EXAM MEASUREMENTS: Right Pleural Effusion fluid pocket: 8.5 cm Right skin to fluid thickness: 3.4 cm Right side marked for possible thoracentesis outside the dept. Pulmonologists are able to review the images in the patient?s EMR. IMPRESSION: Right side pleural effusion.
[2018-01-23] MEDS: ATORVASTATIN 80 MG TAB PO SCH (22:14)
[2018-01-23] MEDS: MONTELUKAST 10 MG TAB PO SCH (22:14)
[2018-01-23] MEDS: ALPRAZolam 0.5 MG TAB PO SCH (22:14)
[2018-01-23] MEDS: CARVEDILOL 3.125 MG TAB PO SCH (22:14)
[2018-01-23 22:24] LABS: Glucose,Whole Blood 127 mg/dL (75-99)
[2018-01-23] MEDS: INSULIN ASPART 100 UNIT/ML 1 ML 10 ML VIAL SQ SCH (22:25)
[2018-01-23] MEDS: methylPREDNISolone SOD SUCCI 125 MG/2 ML VIAL IV SCH (22:58)
[2018-01-24] MEDS: IPRATROPIUM-ALBUTEROL 3 ML NEB INHALATION SCH ×4 (07:00→19:54)
[2018-01-24] MEDS: SYMBICORT 80-4.5 MCG INHALER INHALATION SCH ×2 (07:00→19:54)
[2018-01-24 07:19] LABS: Glucose,Whole Blood 174 mg/dL (75-99)
[2018-01-24] MEDS: CLOPIDOGREL 75 MG TAB PO SCH (07:42)
[2018-01-24] MEDS: CARVEDILOL 3.125 MG TAB PO SCH ×2 (07:42→18:11)
[2018-01-24] MEDS: methylPREDNISolone SOD SUCCI 125 MG/2 ML VIAL IV SCH (07:42)
[2018-01-24] MEDS: LORATADINE 10 MG TAB PO SCH (07:42)
[2018-01-24] MEDS: POLYETHYLENE GLYCOL 3350 17 GM POWD.PACK PO SCH (07:43)
[2018-01-24] MEDS: INSULIN ASPART 100 UNIT/ML 1 ML 10 ML VIAL SQ SCH ×4 (07:43→22:24)
--- NOTE | 2018-01-24 09:46 | P.GSCN ---
History of Present Illness Consult date: 01/24/18 Reason for Consult: History of robotic-assisted right upper lobectomy, right pleural effusion. Requesting physician: Billy Saul History of present illness: This is 77-year-old female patient who is followed by Dr. Billy Saul on an outpatient basis. 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 Recently, the patient has been complaining of progressive shortness of breath and a nagging productive cough producing thick yellow sputum. She reports that she has been using home oxygen over the last couple of weeks at 2 L nasal cannula. She denies any complaints of pain, nausea, vomiting, dizziness or syncope. Due to the patient's complaints of worsening shortness of breath, she was admitted to the hospital for further evaluation and treatment. A computed tomography scan of her chest was completed on an outpatient basis, which demonstrated a loculated moderate right pleural effusion, and a 6 mm left basilar pulmonary nodule which is not changed in size since her previous computed tomography scan of her chest. Due to her history of recent right upper lobectomy a consult was placed to Dr. Jabari Mix from cardiothoracic surgery for further treatment recommendations. Review of Systems A 14 point review of systems was completed and was negative except as mentioned in the HPI. Past Medical History Past Medical History: Asthma, Coronary Artery Disease (CAD), Cancer, Eye Disorder, Hyperlipidemia, Hypertension, Osteoarthritis (OA), Respiratory Disorder Additional Past Medical History / Comment(s): Progressive shortness of breath, UTI- Escherichia coli october 2017, Right ear pain-swelling lump mass in neck., polyp - pre cancer, right upper lobe adenocarcinoma status post right upper lobectomy October 2017-no chemo or radiation, home o2 2 liters n/c, positive stress test, status post heart cath/stent placement to her right coronary artery using Xience drug-eluting stent in December 2017. History of Any Multi-Drug Resistant Organisms: None Reported Past Surgical History: Appendectomy, Bowel Resection, Ear Surgery, Heart Catheterization With Stent, Hernia Repair, Hysterectomy, Tonsillectomy Additional Past Surgical History / Comment(s): Colon/bowel surgery-"too much bowel" done in her 30's-21 inches removed, cataracts, hemorroid sx,hiatal hernia ,11-02-17 robotic rt upper lobectomy w/mediastinal lymph node dissection. cardiac stents to rca Past Anesthesia/Blood Transfusion Reactions: No Reported Reaction Additional Past Anesthesia/Blood Transfusion Reaction / Comm: never recieved blood Date of Last Stent Placement:: 01/01/18 Xience NIVIA RCA Past Psychological History: No Psychological Hx Reported Smoking Status: Former smoker ( and July 2017.) Past Alcohol Use History: None Reported Past Drug Use History: None Reported - Past Family History Sister(s) Family Medical History: Coronary Artery Disease (CAD) Father Family Medical History: Myocardial Infarction ([place]) (At age 40.) Mother Family Medical History: Cancer Additional Family Medical History / Comment(s): bowel cancer Medications and Allergies Home Medications Medication Instructions Recorded Confirmed Type ALPRAZolam [Xanax] 0.5 mg PO HS 03/19/14 01/23/18 History Cetirizine HCl [Zyrtec] 10 mg PO DAILY 03/19/14 01/23/18 History Famotidine [Pepcid] 20 mg PO PC-SUPPER 03/19/14 01/23/18 History Montelukast [Singulair] 10 mg PO HS 09/15/17 01/23/18 History Albuterol Inhaler [Ventolin Hfa 1 puff INHALATION RT-Q6H PRN 10/30/17 01/23/18 History Inhaler] Carvedilol [Coreg] 3.125 mg PO BID 10/30/17 01/23/18 History Polyethylene Glycol 3350 [Miralax] 17 gm PO DAILY 10/30/17 01/23/18 History Acetaminophen Tab [Tylenol] 325 - 650 mg PO Q6H PRN 12/27/17 01/23/18 History Albuterol Nebulized [Ventolin 2.5 mg INHALATION RT-QID PRN 12/27/17 01/23/18 History Nebulized] Fluticasone/Salmeterol [Advair 1 inhalation PO BID PRN 12/27/17 01/23/18 History 250-50 Diskus] Atorvastatin [Lipitor] 80 mg PO HS #90 tab 01/01/18 01/23/18 Rx Clopidogrel [Plavix] 75 mg PO DAILY #90 tab 01/01/18 01/23/18 Rx HYDROcodone/APAP 10-325MG [[place] 1 tab PO TID PRN 01/23/18 01/23/18 History 10-325] Allergies Allergy/AdvReac Type Severity Reaction Status Date / Time Penicillins Allergy Rash/Hives Verified 01/23/18 19:05 Surgical - Exam Vital Signs Temp Pulse Resp BP Pulse Ox 97.2 F L 82 20 125/68 95 01/23/18 17:27 01/23/18 17:27 01/23/18 17:27 01/23/18 17:27 01/23/18 17:27 - General well developed, well nourished, no distress, no pain, obese - Eyes PERRL, normal ocular movement - ENT normal pinna, normal nares, normal mucosa, no hearing loss, no congestion - Neck Neck is supple, no lymphadenopathy. no masses, no bruits, trachea midline, no venous distension - Respiratory Lung sounds with few scattered crackles throughout, diminished bilateral bases right greater than left. Respirations are symmetrical and nonlabored. Oxygen saturation are 94% on 2 L nasal cannula. - Cardiovascular Regular rhythm and rate. S1 and S2 present, negative for S3, gallop or murmur. No edema present. - Abdomen Abdomen is soft, nontender and nondistended. Active bowel sounds all 4 abdominal quadrants. No palpable masses. No guarding or rigidity. Obese. - Genitourinary Deferred - Rectum Deferred. - Integumentary no rash, no growths, no abnormal pigmentation - Neurologic normal coordination, normal sensation - Musculoskeletal normal gait, normal posture - Psychiatric oriented to time, oriented to person, oriented to place, speech is normal, memory intact Results - Labs 01/23/18 18:41 01/23/18 18:41 Abnormal Lab Results - Last 24 Hours (Table) 01/23/18 01/23/18 01/24/18 Range/Units 18:41 22:22 07:04 Carbon Dioxide 31 H (22-30) mmol/L Glucose 149 H (74-99) mg/dL POC Glucose (mg/dL) 127 H 174 H (75-99) mg/dL Diabetes panel 01/23/18 Range/Units 18:41 Sodium 140 (137-145) mmol/L Potassium 4.1 (3.5-5.1) mmol/L Chloride 99 (98-107) mmol/L Carbon Dioxide 31 H (22-30) mmol/L BUN 16 (7-17) mg/dL Creatinine 0.61 (0.52-1.04) mg/dL Glucose 149 H (74-99) mg/dL Calcium 9.4 (8.4-10.2) mg/dL AST 20 (14-36) U/L ALT 25 (9-52) U/L Alkaline Phosphatase 96 (38-126) U/L Total Protein 6.8 (6.3-8.2) g/dL Albumin 3.5 (3.5-5.0) g/dL Calcium panel 01/23/18 Range/Units 18:41 Calcium 9.4 (8.4-10.2) mg/dL Albumin 3.5 (3.5-5.0) g/dL Pituitary panel 01/23/18 Range/Units 18:41 Sodium 140 (137-145) mmol/L Potassium 4.1 (3.5-5.1) mmol/L Chloride 99 (98-107) mmol/L Carbon Dioxide 31 H (22-30) mmol/L BUN 16 (7-17) mg/dL Creatinine 0.61 (0.52-1.04) mg/dL Glucose 149 H (74-99) mg/dL Calcium 9.4 (8.4-10.2) mg/dL Adrenal panel 01/23/18 Range/Units 18:41 Sodium 140 (137-145) mmol/L Potassium 4.1 (3.5-5.1) mmol/L Chloride 99 (98-107) mmol/L Carbon Dioxide 31 H (22-30) mmol/L BUN 16 (7-17) mg/dL Creatinine 0.61 (0.52-1.04) mg/dL Glucose 149 H (74-99) mg/dL Calcium 9.4 (8.4-10.2) mg/dL Total Bilirubin 0.6 (0.2-1.3) mg/dL AST 20 (14-36) U/L ALT 25 (9-52) U/L Alkaline Phosphatase 96 (38-126) U/L Total Protein 6.8 (6.3-8.2) g/dL Albumin 3.5 (3.5-5.0) g/dL - Imaging CT scan - chest: report reviewed, image reviewed Assessment and Plan (1) Asthma Current Visit: Yes Status: Acute Code(s): J45.909 - UNSPECIFIED ASTHMA, UNCOMPLICATED SNOMED Code(s): 264400815 (2) Obesity Current Visit: Yes Status: Acute Code(s): E66.9 - OBESITY, UNSPECIFIED SNOMED Code(s): 185793285 (3) History of adenocarcinoma of lung Current Visit: Yes Status: Acute Code(s): Z85.118 - PERSONAL HISTORY OF MALIGNANT NEOPLASM OF BRONCHUS AND LUNG SNOMED Code(s): 547263060 (4) History of lobectomy of lung Current Visit: Yes Status: Acute Code(s): Z90.2 - ACQUIRED ABSENCE OF LUNG [ PART OF] SNOMED Code(s): 459626424 (5) Status post insertion of drug-eluting stent into right coronary artery for coronary artery disease Current Visit: Yes Status: Acute Code(s): Z95.5 - PRESENCE OF CORONARY ANGIOPLASTY IMPLANT AND GRAFT SNOMED Code(s): 052308952 (6) Osteoarthritis Current Visit: Yes Status: Acute Code(s): M19.90 - UNSPECIFIED OSTEOARTHRITIS, UNSPECIFIED SITE SNOMED Code(s): 966818002 (7) Pleural effusion, right Current Visit: Yes Status: Acute Code(s): J90 - PLEURAL EFFUSION, NOT ELSEWHERE CLASSIFIED SNOMED Code(s): 92183135 (8) Hypertension Current Visit: No Status: Chronic Code(s): I10 - ESSENTIAL (PRIMARY) HYPERTENSION SNOMED Code(s): 33011218 (9) Tobacco dependence in remission Current Visit: No Status: Ruled-out Code(s): F17.201 - NICOTINE DEPENDENCE, UNSPECIFIED, IN REMISSION SNOMED Code(s): 288057730 Plan: The patient was seen and examined. Her chart and diagnostics were reviewed. Her case was discussed with Dr. Sanchez from cardiothoracic surgery. An ultrasound of her chest was completed with markings, it demonstrated an 8.5 cm right pleural effusion. The patient may benefit from a right thoracentesis. Medical management recommendations per Dr. Saul. Pulmonary management recommendations per Dr. Hart. No surgical intervention is recommended at this time. DVT and GI prophylaxis. We will order an incentive spirometry and encourage use every hour while awake. Thank you Dr. Saul for this consult and we look forward to working with you in the care of your patient. Time with Patient: Greater than 30
--- NOTE | 2018-01-24 10:34 | P.CNPUL ---
<Cuca Bird E - Last Filed: 01/24/18 10:21> History of Present Illness Consult date: 01/24/18 Requesting physician: Billy Saul Reason for consult: pleural effusion Chief complaint: shortness of breath History of present illness: This is a 77-year-old female patient being seen and examined and evaluated for consultation on rounds today. She does have a significant history for spiculated right upper lobe mass status post right upper lobectomy with pathology showing adenocarcinoma, CAD, hyperlipidemia, hypertension, asthma and nicotine dependence that she quit smoking in July of this year. Previously did smoke one half packs per day for over 50 years. 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 This patient was a direct admit from Dr. Arora's office with shortness of breath and she did have an outpatient CT that did show a loculated moderate right-sided pleural effusion, as well as a 6 mm left basilar pulmonary nodule which has been unchanged from her previous computed tomography scan. Patient also did have a recent right upper lobectomy with Dr. Lares in on 2017. 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 Mediastinal lymph node dissections were completed and were non metastasis. Chest did have an outpatient cardiac catheter procedure on 01/01/2018 and did have a stent to her right coronary artery recently on 01/01/2018. She also is noted to have 2 L of supplemental oxygen at home at all times. Upon examination the patient's resting up in bed on 3 L of supplemental oxygen. States she feels short of breath with exertion and activity. She does take Advair and Ventolin at home as well as breathing treatments as needed. She has been seen in the past by a different freezer operator however she is requesting a new freezer operator at this time therefore we were consulted. During this admission she did have an ultrasound of the chest which did reveal a right-sided 8.5 cm pleural effusion which has been marked for thoracentesis. 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 History of Any Multi-Drug Resistant Organisms: None Reported Past Surgical History: Appendectomy, Bowel Resection, Ear Surgery, Heart Catheterization With Stent, Hernia Repair, Hysterectomy, Tonsillectomy Additional Past Surgical History / Comment(s): Colon/bowel surgery-"too much bowel" done in her 30's-21 inches removed, cataracts, hemorroid sx,hiatal hernia ,11-02-17 robotic rt upper lobectomy w/mediastinal lymph node dissection. cardiac stents to rca Past Anesthesia/Blood Transfusion Reactions: No Reported Reaction Additional Past Anesthesia/Blood Transfusion Reaction / Comment(s): never recieved blood Date of Last Stent Placement:: 01/01/18 Xience NIVIA RCA Past Psychological History: No Psychological Hx Reported Smoking Status: Former smoker ( and July 2017.) Past Alcohol Use History: None Reported Past Drug Use History: None Reported - Past Family History Sister(s) Family Medical History: Coronary Artery Disease (CAD) Father Family Medical History: Myocardial Infarction (NE) (At age 40.) Mother Family Medical History: Cancer Additional Family Medical History / Comment(s): bowel cancer Medications and Allergies Home Medications Medication Instructions Recorded Confirmed Type ALPRAZolam [Xanax] 0.5 mg PO HS 03/19/14 01/23/18 History Cetirizine HCl [Zyrtec] 10 mg PO DAILY 03/19/14 01/23/18 History Famotidine [Pepcid] 20 mg PO PC-SUPPER 03/19/14 01/23/18 History Montelukast [Singulair] 10 mg PO HS 09/15/17 01/23/18 History Albuterol Inhaler [Ventolin Hfa 1 puff INHALATION RT-Q6H PRN 10/30/17 01/23/18 History Inhaler] Carvedilol [Coreg] 3.125 mg PO BID 10/30/17 01/23/18 History Polyethylene Glycol 3350 [Miralax] 17 gm PO DAILY 10/30/17 01/23/18 History Acetaminophen Tab [Tylenol] 325 - 650 mg PO Q6H PRN 12/27/17 01/23/18 History Albuterol Nebulized [Ventolin 2.5 mg INHALATION RT-QID PRN 12/27/17 01/23/18 History Nebulized] Fluticasone/Salmeterol [Advair 1 inhalation PO BID PRN 12/27/17 01/23/18 History 250-50 Diskus] Atorvastatin [Lipitor] 80 mg PO HS #90 tab 01/01/18 01/23/18 Rx Clopidogrel [Plavix] 75 mg PO DAILY #90 tab 01/01/18 01/23/18 Rx HYDROcodone/APAP 10-325MG [Chase 1 tab PO TID PRN 01/23/18 01/23/18 History 10-325] Allergies Allergy/AdvReac Type Severity Reaction Status Date / Time Penicillins Allergy Rash/Hives Verified 01/23/18 19:05 Physical Exam Vitals: Vital Signs Temp Pulse Pulse Resp BP Pulse Ox 01/24/18 07:10 86 01/24/18 07:00 92 01/24/18 06:31 97.5 F L 92 20 119/69 94 L 01/23/18 22:28 98.3 F 84 20 117/70 94 L 01/23/18 19:17 80 01/23/18 19:08 78 01/23/18 17:27 97.2 F L 82 20 125/68 95 Intake and Output 01/23/18 01/24/18 01/24/18 22:59 06:59 14:59 Other: Voiding Method Bedside Commode # Voids 1 2 Weight 84 kg GENERAL EXAM: Alert, active, comfortable in no apparent distress. HEAD: Normocephalic. EYES: Normal reaction of pupils, equal size. NOSE: Clear with pink turbinates. THROAT: No erythema or exudates. NECK: No masses, no JVD. CHEST: No chest wall deformity. LUNGS: Lungs noted to have equal air entry with diminished bases, right greater than left. CVS: S1 and S2 normal with no audible mumurs, regular rhythm. ABDOMEN: No hepatosplenomegaly, normal bowel sounds, no guarding or rigidity. EXTREMITIES: No edema noted, pedal pulses palpable. SKIN: No rashes CENTRAL NERVOUS SYSTEM: No focal deficits, tone is normal in all 4 extremities. Results - Laboratory Findings CBC and BMP: 01/23/18 18:41 01/23/18 18:41 PT/INR, D-dimer PT 10.8 sec (9.0-12.0) 01/23/18 18:41 INR 1.1 (<1.2) 01/23/18 18:41 Abnormal lab findings: Abnormal Labs 01/23/18 01/23/18 01/24/18 18:41 22:22 07:04 Carbon Dioxide 31 H Glucose 149 H POC Glucose (mg/dL) 127 H 174 H - Diagnostic Findings CT scan - chest: report reviewed, image reviewed Additional studies: Chest ultrasoundright sided pleural effusion 8.5 cm Assessment and Plan Assessment: Assessment Acute on chronic hypoxic respiratory failure requiring supplemental oxygen Right-sided pleural effusion Acute exacerbation of asthma, baseline status unknown Acute exacerbation of COPD History of right upper lobectomy, pathology shows pulmonary adenocarcinoma CAD with stent in the right coronary artery Hypertension Hyperlipidemia Plan Medications have been reviewed and will be continued as ordered. Right-sided thoracocentesis will be obtained with pathology Risk and benefits of the procedure have been discussed with the patient at length informed consent is obtained Solu-Medrol taper Continue with pulmonary hygiene, coughing and deep breathing exercises, and supportive care. Supplemental oxygen to maintain oxygen saturations of 92% or better. Continue nebulizer treatments. Incentive spirometer GI and DVT prophylaxis. We will continue to monitor labs/results and adjust treatment as necessary. Further recommendations pending. I performed an examination of the patient and discussed their management with the nurse practitioner. I have reviewed the nurse practitioner's note and agree with the documented findings and plan of care. <Carlee Hart - Last Filed: 01/24/18 10:40> Physical Exam Osteopathic Statement: *. No significant issues noted on an osteopathic structural exam other than those noted in the History and Physical/Consult. Vitals: Vital Signs Temp Pulse Pulse Resp BP Pulse Ox 01/24/18 10:30 84 01/24/18 07:10 86 01/24/18 07:00 92 01/24/18 06:31 97.5 F L 92 20 119/69 94 L 01/23/18 22:28 98.3 F 84 20 117/70 94 L 01/23/18 19:17 80 01/23/18 19:08 78 01/23/18 17:27 97.2 F L 82 20 125/68 95 Intake and Output 01/23/18 01/24/18 01/24/18 22:59 06:59 14:59 Other: Voiding Method Bedside Commode # Voids 1 2 Weight 84 kg Results - Laboratory Findings CBC and BMP: 01/23/18 18:41 01/23/18 18:41 PT/INR, D-dimer PT 10.8 sec (9.0-12.0) 01/23/18 18:41 INR 1.1 (<1.2) 01/23/18 18:41 Abnormal lab findings: Abnormal Labs 01/23/18 01/23/18 01/24/18 18:41 22:22 07:04 Carbon Dioxide 31 H Glucose 149 H POC Glucose (mg/dL) 127 H 174 H Assessment and Plan Assessment: Plan for diagnostic/therapeutic thoracentesis today. Patient is agreeable to proceed. She states she does not want to wear oxygen, however, it is explained that at this time she does need it. We will reassess daily and prior to discharge. Billie Jaramillo, Solumedrol taper, IS. CTA to be done today. Thank you for this consultation. We will continue to follow along. ~Carlee Hart DO
--- NOTE | 2018-01-24 11:08 | P.PCN ---
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 The patient's right side was prepped and draped in a sterile manner after the appropriate infiltration level was confirmed by ultrasound. 1% lidocaine was used anesthetize the surrounding skin. A finder needle was then used to locate fluid and josé miguel fluid was obtained. A 10-blade scalpel used to make the incision. The thoracentesis catheter was then threaded without difficulty. The patient had 650 mL of cloudy josé miguel fluid removed. A post-procedure CT chest was ordered and the fluid will be sent for several studies. Estimated Blood Loss: 0 mL The patient tolerated the procedure well and there were no complications.
[2018-01-24 12:34] LABS: Total Protein 6.5 g/dL (6.3-8.2)
--- NOTE | 2018-01-24 12:50 | CT ---
EXAMINATION TYPE: CT angio chest DATE OF EXAM: 01/24/2018 COMPARISON: CTA chest from 6 days ago and older studies. PET/CT September 09, 2017. HISTORY: Patient complains of lung CA. Hypoxia and dyspnea rule out pulmonary embolism per order. CT DLP: 420.3 mGycm. Automated Exposure Control for Dose Reduction was Utilized. CONTRAST: CTA scan of the thorax is performed with IV Contrast, patient injected with 100 mL of Isovue 370, pul monary embolism protocol. MIP Images are created on CT scanner and reviewed. FINDINGS: LUNGS: There is small right pleural fluid collection stable in size from prior exam but nondependent as is prominent anteriorly in the upper lung axial image 36 for reference redemonstrated. There is in terval resolution of moderate-sized dependent right pleural effusion. There is background mild underl delmi emphysematous change. There is new mild alveolar and interstitial edema with diffuse groundglass opacity and increased interstitial prominence including some Ayaz B lines along the periphery. No pneumothorax is seen bilaterally. Persistent right-sided volume loss is noted MEDIASTINUM: There is satisfactory enhancement of the pulmonary artery and its branches, there is no CT evidence for pulmonary embolism. There are persistent stable enlarged left hilar lymph nodes as well as suspicious prevascular and right tracheobronchial lymph nodes axial image 45. These have bee n present since original PET/CT without abnormal hypermetabolic uptake. No significant pericardial ef fusion is seen. Cardiomegaly is redemonstrated. Severe three-vessel coronary artery calcification is again seen. OTHER: There is stable nodularity to left adrenal gland axial image 132 anterior limb. Slight underly ing scoliosis in the upper thoracic spine is redemonstrated IMPRESSION: 1. Small right loculated pleural fluid collection anteriorly stable. Interval resolution of moderate size right pleural effusion. 2. No CT evidence for acute pulmonary embolism. 3. Suspect CHF exacerbation as there is cardiomegaly with new mild alveolar and interstitial edema fe lt present. 4. Posttreatment changes to right lung from partial pneumonectomy redemonstrated. Stable ametabolic p rominent mediastinal and left hilar lymph nodes.
--- NOTE | 2018-01-24 12:59 | XR ---
EXAMINATION TYPE: XR chest 2V DATE OF EXAM: 01/24/2018 COMPARISON: CT Earlier today and radiograph 11/05/2017 HISTORY: 7 year-old female right pleural effusion, shortness of breath and cough, right lung drained today. TECHNIQUE: Frontal and lateral views FINDINGS: Heart mildly enlarged. Diffuse interstitial prominence. Hyperinflation. Juxtaphrenic peak right hemid iaphragm suggesting right hemithoracic volume loss likely due to partial pneumonectomy. No significan t pleural effusion seen on the lateral view. IMPRESSION: Cardiomegaly and postsurgical volume loss in the right hemithorax. Findings suggest mild pulmonary va scular congestion.
[2018-01-24 13:18] LABS: Glucose,Whole Blood 149 mg/dL (75-99)
[2018-01-24] MEDS: SODIUM CHLORIDE 0.9% 1,000 ML IV SCH (13:55)
[2018-01-24] MEDS ORDERED: FUROSEMIDE 10 MG/ML 4 ML VIAL IV STA (14:48)
[2018-01-24] MEDS: methylPREDNISolone SOD SUCCI 40 MG/ML 1 ML VIAL IV SCH (16:59)
[2018-01-24 17:23] LABS: Glucose,Whole Blood 203 mg/dL (75-99)
[2018-01-24] MEDS: FAMOTIDINE 20 MG TAB PO SCH (18:20)
[2018-01-24] MEDS: MONTELUKAST 10 MG TAB PO SCH (20:19)
[2018-01-24] MEDS: ALPRAZolam 0.5 MG TAB PO SCH (20:19)
[2018-01-24] MEDS: ATORVASTATIN 80 MG TAB PO SCH (20:19)
[2018-01-24 20:47] LABS: Glucose,Whole Blood 231 mg/dL (75-99)
[2018-01-24 21:23] LABS: Total Protein, Body Fluid 4300 mg/dL
--- NOTE | 2018-01-24 22:59 | HP ---
HISTORY AND PHYSICAL CHIEF COMPLAINT: A 77-year-old white female with significant shortness of breath. HISTORY OF PRESENT ILLNESS: A 77-year-old white female with recent right upper lobe mass removal with lobectomy for adenocarcinoma, developed shortness of breath since surgery over the past month or so, ordered a CT scan as an outpatient, showed a huge anterior pleural effusion, at which time admitted the patient due to worsening shortness of breath with any ambulation up to 3L oxygen. She was on no oxygen before she had a lobectomy done. She was admitted for extraction of fluid from her lung. She has end-stage COPD. PAST MEDICAL HISTORY: Asthma, coronary artery disease, cancer, eye disorder, COPD, nicotine addiction, hypertension, dyslipidemia, osteoarthritis, respiratory disorder. SURGICAL HISTORY: Appendectomy, bowel resection, ear surgery, heart catheterization with stent, hernia repair, hysterectomy, tonsillectomy, colon surgery. FAMILY HISTORY: Sister with coronary artery disease, father with myocardial infarction. Mother had cancer and bowel surgery. HOME MEDICATIONS: 1. Xanax 0.5 q.h.s. 2. Zyrtec 10 mg daily. 3. Singular 10 mg daily. 4. Pepcid 20 mg b.i.d. 5. p.r.n. 6. Coreg 3.125 b.i.d. 7. Plavix 75 mg daily. 8. Lipitor 80 mg daily. 9. [place] 10/325 p.r.n. ALLERGIES: To PENICILLIN. PHYSICAL EXAM: VITAL SIGNS: Stable, afebrile, 3L oxygen, low 90s. CARDIOVASCULAR: S1, S2. LUNGS: Transmitted upper airway sounds, scattered wheeze x4. HEMATOLOGY: Negative Homans'. PSYCH: Fair mood and affect. NEUROLOGIC: Alert orient x3. OPHTHALMOLOGIC: Pupils equal, round, reactive to light and accommodation. NEUROLOGIC: Alert and oriented x3. GI: Soft and nontender. CT scan as mentioned above. ASSESSMENT: 1. Acute on chronic hypoxemic respiratory distress requiring 3L of oxygen. 2. Right-sided pleural effusion, large. 3. Asthma. 4. Chronic obstructive pulmonary disease. 5. Recent adenocarcinoma with lobectomy. 6. Hypertension. 7. Dyslipidemia. PLANS: Right-sided thoracentesis, Solu-Medrol IV, pulmonary consult. Please see further orders. MMODL / IJN: [id number] /
[2018-01-25] MEDS: methylPREDNISolone SOD SUCCI 40 MG/ML 1 ML VIAL IV SCH ×3 (00:41→15:01)
[2018-01-25] MEDS: IPRATROPIUM-ALBUTEROL 3 ML NEB INHALATION SCH ×4 (06:53→20:10)
[2018-01-25] MEDS: SYMBICORT 80-4.5 MCG INHALER INHALATION SCH ×2 (06:53→20:10)
[2018-01-25 07:34] LABS: Glucose,Whole Blood 187 mg/dL (75-99)
--- NOTE | 2018-01-25 07:45 | XR ---
EXAMINATION TYPE: XR chest 2V DATE OF EXAM: 01/25/2018 COMPARISON: Chest x-ray and CTA chest from yesterday HISTORY: Status post thoracentesis with shortness of breath and cough. TECHNIQUE: Frontal and lateral views of the chest are obtained. FINDINGS: There is persistent cardiomegaly with tracheal deviation due to ectatic and atheroscleroti c aorta. There is chronic parenchymal change with right basilar scarring and tenting of hemidiaphrag m redemonstrated. Left lung is clear. No large pleural effusion or pneumothorax is present bilaterall y on current study. The osseous structures are intact. IMPRESSION: Chronic parenchymal changes and cardiomegaly with right basilar scarring and/or atelecta sis. No new infiltrate is present.
--- NOTE | 2018-01-25 07:54 | P.PN ---
Subjective Progress Note Date: 01/25/18 Principal diagnosis: Loculated right pleural effusion. History of robotic-assisted right upper lobectomy in October 2017 with pathology demonstrating poorly differentiated adenocarcinoma stage TIb N0 M0, home oxygen use 2 L nasal cannula, coronary artery disease post-stent placement to the right coronary artery with drug- eluting stent in December 2017, hyperlipidemia, hypertension, family history of early onset coronary artery disease, asthma, previous nicotine dependence, osteoarthritis, obesity. POD #1 right sided thoracentesis with removal of 650 mL cloudy josé miguel fluid, fluid sent for cytology. Patient's currently sitting up in bed eating breakfast in no acute distress. Denies pain, states shortness of breath is better. Her only complaint is that she does not want to wear oxygen for the rest of her life. Objective - Vital Signs Vital signs: Vital Signs Temp 96.8 F L 01/25/18 06:30 Pulse 92 01/25/18 07:05 Resp 20 01/25/18 06:30 BP 118/58 01/25/18 06:30 Pulse Ox 98 01/25/18 06:53 Intake & Output 01/24/18 01/25/18 01/25/18 18:59 06:59 18:59 Output Total 650 Balance -650 Output: Other 650 Other: Voiding Method Bedside Commode # Voids 2 2 # Bowel Movements 1 - Constitutional General appearance: Present: cooperative, no acute distress, obese - Respiratory Details: Lungs sounds diminished, right greater than left. Respirations even, nonlabored. Was on 2 L nasal cannula this morning with oxygen saturation 97%, placed on room air and oxygen saturation is 88-90%. Only able to achieve 250- 500 mL on her incentive spirometry. Weak cough present. - Cardiovascular Details: S1, S2 present. Regular rate and rhythm. Palpable peripheral pulses bilaterally. No edema present. No calf pain or tenderness noted. SCDs present , however patient keeps taking them off. - Gastrointestinal Gastrointestinal Comment(s): Abdomen soft, nontender, nondistended. Active bowel sounds 4 quadrants. Tolerating diet. - Genitourinary Genitourinary Comment(s): Continues to void clear, yellow urine. - Integumentary Integumentary Comment(s): Right lateral chest wall incisions well-healed. - Neurologic Neurologic: Present: CNII-XII intact - Musculoskeletal Musculoskeletal: Present: gait normal, generalized weakness, strength equal bilaterally - Psychiatric Psychiatric: Present: A&O x's 3, appropriate affect, intact judgment & insight - Labs CBC & Chem 7: 01/23/18 18:41 01/23/18 18:41 Labs: Abnormal Lab Results - Last 24 Hours (Table) 01/24/18 01/24/18 01/24/18 Range/Units 12:57 16:49 20:46 POC Glucose (mg/dL) 149 H 203 H 231 H (75-99) mg/dL Microbiology - Last 24 Hours (Table) 01/24/18 11:00 Gram Stain - Preliminary Thoracic Fluid Body Fluid Culture - Preliminary - Imaging and Cardiology Chest x-ray: image reviewed Assessment and Plan (1) Asthma Current Visit: Yes Status: Chronic Code(s): J45.909 - UNSPECIFIED ASTHMA, UNCOMPLICATED SNOMED Code(s): 689653818 (2) History of adenocarcinoma of lung Current Visit: No Status: Resolved Code(s): Z85.118 - PERSONAL HISTORY OF MALIGNANT NEOPLASM OF BRONCHUS AND LUNG SNOMED Code(s): 216514168 (3) History of lobectomy of lung Current Visit: No Status: Resolved Code(s): Z90.2 - ACQUIRED ABSENCE OF LUNG [PART OF] SNOMED Code(s): 882880086 (4) Obesity Current Visit: Yes Status: Chronic Code(s): E66.9 - OBESITY, UNSPECIFIED SNOMED Code(s): 473892779 (5) Osteoarthritis Current Visit: Yes Status: Chronic Code(s): M19.90 - UNSPECIFIED OSTEOARTHRITIS, UNSPECIFIED SITE SNOMED Code(s): 096340385 (6) Pleural effusion, right Current Visit: Yes Status: Acute Code(s): J90 - PLEURAL EFFUSION, NOT ELSEWHERE CLASSIFIED SNOMED Code(s): 85059741 (7) Status post insertion of drug-eluting stent into right coronary artery for coronary artery disease Current Visit: Yes Status: Chronic Code(s): Z95.5 - PRESENCE OF CORONARY ANGIOPLASTY IMPLANT AND GRAFT SNOMED Code(s): 509851362 (8) COPD (chronic obstructive pulmonary disease) Current Visit: Yes Status: Chronic Code(s): J44.9 - CHRONIC OBSTRUCTIVE PULMONARY DISEASE, UNSPECIFIED SNOMED Code(s): 74291951 (9) Hypertension Current Visit: Yes Status: Chronic Code(s): I10 - ESSENTIAL (PRIMARY) HYPERTENSION SNOMED Code(s): 84168169 (10) Tobacco dependence in remission Current Visit: No Status: Resolved Code(s): F17.201 - NICOTINE DEPENDENCE, UNSPECIFIED, IN REMISSION SNOMED Code(s): 422488939 Plan: 1. No surgical intervention from our standpoint. 2. Wean O2 as tolerated. Encourage incentive spirometry use 10 times every hour. 3. Encourage continued smoking cessation. 4. Bronchodilators, steroids per pulmonology. 5. Will follow pleural fluid cytology. 6. Chest x-ray this morning status post thoracentesis is stable. 7. Medical management per primary care service. 8. Increase activity, ambulate in hallway. 9. Will continue to see patient as needed. Please don't hesitate to call us with any concerns. Time with Patient: Greater than 30
[2018-01-25] MEDS: POLYETHYLENE GLYCOL 3350 17 GM POWD.PACK PO SCH (08:05)
[2018-01-25] MEDS: LORATADINE 10 MG TAB PO SCH (08:05)
[2018-01-25] MEDS: CLOPIDOGREL 75 MG TAB PO SCH (08:05)
[2018-01-25] MEDS: CARVEDILOL 3.125 MG TAB PO SCH ×2 (08:05→17:38)
[2018-01-25] MEDS: INSULIN ASPART 100 UNIT/ML 1 ML 10 ML VIAL SQ SCH ×4 (08:06→21:40)
--- NOTE | 2018-01-25 10:42 | P.PN ---
<Cuca Bird E - Last Filed: 01/25/18 10:39> Subjective Progress Note Date: 01/25/18 History of present illness: This is a 77-year-old female patient being seen and examined and evaluated for consultation on rounds today. She does have a significant history for spiculated right upper lobe mass status post right upper lobectomy with pathology showing adenocarcinoma, CAD, hyperlipidemia, hypertension, asthma and nicotine dependence that she quit smoking in July of this year. Previously did smoke one half packs per day for over 50 years. 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 This patient was a direct admit from Dr. Arora's office with shortness of breath and she did have an outpatient CT that did show a loculated moderate right-sided pleural effusion, as well as a 6 mm left basilar pulmonary nodule which has been unchanged from her previous computed tomography scan. Patient also did have a recent right upper lobectomy with Dr. Lares in on 2017. 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 Mediastinal lymph node dissections were completed and were non metastasis. Chest did have an outpatient cardiac catheter procedure on 01/01/2018 and did have a stent to her right coronary artery recently on 01/01/2018. She also is noted to have 2 L of supplemental oxygen at home at all times. Upon examination the patient's resting up in bed on 3 L of supplemental oxygen. States she feels short of breath with exertion and activity. She does take Advair and Ventolin at home as well as breathing treatments as needed. She has been seen in the past by a different tire bladder maker however she is requesting a new tire bladder maker at this time therefore we were consulted. During this admission she did have an ultrasound of the chest which did reveal a right-sided 8.5 cm pleural effusion which has been marked for thoracentesis. 01/25/18- patient is being seen examined and evaluated today on rounds. She is resting up in bed on room air. Has not needed her oxygen this morning states she's feeling significantly better post thoracentesis that was completed yesterday. Cytology pending post thoracentesis. Patient is requesting to go home. Her labs and reports from today reviewed. Chest x-ray from this morning was reviewed and shows chronic changes with cardiomegaly and right basilar scarring/atelectasis. She continues on her breathing treatments. She is afebrile no further complaints Objective - Vital Signs Vital signs: Vital Signs Temp 96.8 F L 01/25/18 06:30 Pulse 92 01/25/18 07:05 Resp 20 01/25/18 06:30 BP 118/58 01/25/18 06:30 Pulse Ox 98 01/25/18 06:53 Intake & Output 01/24/18 01/25/18 01/25/18 18:59 06:59 18:59 Output Total 650 Balance -650 Output: Other 650 Other: Voiding Method Bedside Commode # Voids 2 2 # Bowel Movements 1 - Exam GENERAL EXAM: Alert, active, comfortable in no apparent distress. HEAD: Normocephalic. EYES: Normal reaction of pupils, equal size. NOSE: Clear with pink turbinates. THROAT: No erythema or exudates. NECK: No masses, no JVD. CHEST: No chest wall deformity. LUNGS: Lungs noted to have equal air entry with diminished bases CVS: S1 and S2 normal with no audible mumurs, regular rhythm. ABDOMEN: No hepatosplenomegaly, normal bowel sounds, no guarding or rigidity. EXTREMITIES: No edema noted, pedal pulses palpable. SKIN: No rashes CENTRAL NERVOUS SYSTEM: No focal deficits, tone is normal in all 4 extremities. - Labs CBC & Chem 7: 01/23/18 18:41 01/23/18 18:41 Labs: Abnormal Lab Results - Last 24 Hours (Table) 01/24/18 01/24/18 01/24/18 Range/Units 12:57 16:49 20:46 POC Glucose (mg/dL) 149 H 203 H 231 H (75-99) mg/dL 01/25/18 Range/Units 06:59 POC Glucose (mg/dL) 187 H (75-99) mg/dL Microbiology - Last 24 Hours (Table) 01/24/18 11:00 Gram Stain - Preliminary Thoracic Fluid Body Fluid Culture - Preliminary Assessment and Plan Assessment: Assessment Acute on chronic hypoxic respiratory failure requiring supplemental oxygen Right-sided pleural effusion Acute exacerbation of asthma, baseline status unknown Acute exacerbation of COPD History of right upper lobectomy, pathology shows pulmonary adenocarcinoma CAD with stent in the right coronary artery Hypertension Hyperlipidemia Plan Home oxygen assessment prior to discharge Medications have been reviewed and will be continued as ordered. Right-sided thoracocentesis will be obtained with pathology Risk and benefits of the procedure have been discussed with the patient at length informed consent is obtained Solu-Medrol taper Continue with pulmonary hygiene, coughing and deep breathing exercises, and supportive care. Supplemental oxygen to maintain oxygen saturations of 92% or better. Continue nebulizer treatments. Incentive spirometer GI and DVT prophylaxis. We will continue to monitor labs/results and adjust treatment as necessary. Further recommendations pending. I performed an examination of the patient and discussed their management with the nurse practitioner. I have reviewed the nurse practitioner's note and agree with the documented findings and plan of care. <Carlee Hart - Last Filed: 01/25/18 15:05> Objective - Vital Signs Vital signs: Vital Signs Temp 96.8 F L 01/25/18 06:30 Pulse 85 01/25/18 11:15 Resp 16 01/25/18 11:15 BP 118/58 01/25/18 06:30 Pulse Ox 98 01/25/18 06:53 Intake & Output 01/24/18 01/25/18 01/25/18 18:59 06:59 18:59 Output Total 650 Balance -650 Output: Other 650 Other: Voiding Method Bedside Commode # Voids 2 2 1 # Bowel Movements 1 - Labs CBC & Chem 7: 01/23/18 18:41 01/23/18 18:41 Labs: Abnormal Lab Results - Last 24 Hours (Table) 01/24/18 01/24/18 01/25/18 Range/Units 16:49 20:46 06:59 POC Glucose (mg/dL) 203 H 231 H 187 H (75-99) mg/dL 01/25/18 Range/Units 11:36 POC Glucose (mg/dL) 130 H (75-99) mg/dL Microbiology - Last 24 Hours (Table) 01/24/18 11:00 Gram Stain - Preliminary Thoracic Fluid Body Fluid Culture - Preliminary Assessment and Plan Assessment: Patient seen and examined. Patient tolerated thoracentesis well. She states she does feel a little bit better. She has been off of oxygen. We will recheck ambulatory pulse ox prior to discharge. Prednisone taper. Continue breathing treatments. Will need to discuss further treatment options for adenocarcinoma of the lung as an outpatient. Cytology is pending on pleural fluid. Continue Symbicort and nebulizer. ~Carlee Hart DO
[2018-01-25] MEDS: SODIUM CHLORIDE 0.9% 1,000 ML IV SCH (10:48)
[2018-01-25 11:39] LABS: Glucose,Whole Blood 130 mg/dL (75-99)
[2018-01-25 17:34] LABS: Glucose,Whole Blood 209 mg/dL (75-99)
[2018-01-25] MEDS: FAMOTIDINE 20 MG TAB PO SCH (17:38)
--- NOTE | 2018-01-25 20:18 | PN ---
PROGRESS NOTE This patient is a 77-year-old white female, doing better without oxygen today. Her oxygen was removed to see how she did without oxygen. Pleural effusion has been drained. She is breathing better. Cytology is pending, status post thoracentesis. Requesting to go home. Temperature 96.8, pulse 92, oxygen 98%, respiratory rate 20, blood pressure 118/58. CARDIOVASCULAR: S1, S2. LUNGS: Transmitted upper airway sounds. Scattered wheeze. HEMATOLOGIC: Negative Homans. PSYCH: Fair mood and affect. ASSESSMENT: 1. Acute on chronic hypoxemic respiratory failure. 2. Right-sided pleural effusion. 3. Asthma. 4. Chronic obstructive pulmonary disease. 5. Pulmonary adenocarcinoma. 6. Coronary artery disease. 7. Stent in the right coronary artery. 8. Hypertension. 9. Dyslipidemia. Possible discharge home without oxygen. Solu-Medrol taper. Smoking cessation. Follow up as an outpatient. Possible discharge home today or tomorrow. MMODL / IJN: [id number] /
[2018-01-25 20:40] LABS: Glucose,Whole Blood 117 mg/dL (75-99)
[2018-01-25] MEDS: ALPRAZolam 0.5 MG TAB PO SCH (21:39)
[2018-01-25] MEDS: MONTELUKAST 10 MG TAB PO SCH (21:39)
[2018-01-25] MEDS: ATORVASTATIN 80 MG TAB PO SCH (21:39)
[2018-01-26 06:21] VITALS: BP 145/67; RESP 17; TEMP 98.6
[2018-01-26] MEDS: SYMBICORT 80-4.5 MCG INHALER INHALATION SCH (07:20)
[2018-01-26] MEDS: IPRATROPIUM-ALBUTEROL 3 ML NEB INHALATION SCH (07:20)
[2018-01-26 07:24] VITALS: PULSE 88
[2018-01-26 07:42] LABS: Glucose,Whole Blood 123 mg/dL (75-99)
[2018-01-26] MEDS: INSULIN ASPART 100 UNIT/ML 1 ML 10 ML VIAL SQ SCH (07:47)
[2018-01-26] MEDS: CARVEDILOL 3.125 MG TAB PO SCH (07:48)
[2018-01-26] MEDS: LORATADINE 10 MG TAB PO SCH (07:48)
[2018-01-26] MEDS: CLOPIDOGREL 75 MG TAB PO SCH (07:48)
[2018-01-26] MEDS: POLYETHYLENE GLYCOL 3350 17 GM POWD.PACK PO SCH (07:48)
[2018-01-26] MEDS ORDERED: predniSONE 20 MG TAB PO SCH (09:00)
--- NOTE | 2018-01-26 09:59 | P.PN ---
<Cuca Bird E - Last Filed: 01/26/18 09:49> Subjective Progress Note Date: 01/26/18 History of present illness: This is a 77-year-old female patient being seen and examined and evaluated for consultation on rounds today. She does have a significant history for spiculated right upper lobe mass status post right upper lobectomy with pathology showing adenocarcinoma, CAD, hyperlipidemia, hypertension, asthma and nicotine dependence that she quit smoking in July of this year. Previously did smoke one half packs per day for over 50 years. 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 This patient was a direct admit from Dr. Arora's office with shortness of breath and she did have an outpatient CT that did show a loculated moderate right-sided pleural effusion, as well as a 6 mm left basilar pulmonary nodule which has been unchanged from her previous computed tomography scan. Patient also did have a recent right upper lobectomy with Dr. Lares in on 2017. 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 Mediastinal lymph node dissections were completed and were non metastasis. Chest did have an outpatient cardiac catheter procedure on 01/01/2018 and did have a stent to her right coronary artery recently on 01/01/2018. She also is noted to have 2 L of supplemental oxygen at home at all times. Upon examination the patient's resting up in bed on 3 L of supplemental oxygen. States she feels short of breath with exertion and activity. She does take Advair and Ventolin at home as well as breathing treatments as needed. She has been seen in the past by a different stencil typist however she is requesting a new stencil typist at this time therefore we were consulted. During this admission she did have an ultrasound of the chest which did reveal a right-sided 8.5 cm pleural effusion which has been marked for thoracentesis. 01/25/18- patient is being seen examined and evaluated today on rounds. She is resting up in bed on room air. Has not needed her oxygen this morning states she's feeling significantly better post thoracentesis that was completed yesterday. Cytology pending post thoracentesis. Patient is requesting to go home. Her labs and reports from today reviewed. Chest x-ray from this morning was reviewed and shows chronic changes with cardiomegaly and right basilar scarring/atelectasis. She continues on her breathing treatments. She is afebrile no further complaints 01/26/18-patient is being seen examined and evaluated today on rounds. She is resting up from air being prepared for discharge. She will home on a prednisone taper. She feels her breathing is at baseline. She is looking forward to go home. She is afebrile no further complaints case is discussed at length with the nurse. Objective - Vital Signs Vital signs: Vital Signs Temp 98.6 F 01/26/18 06:20 Pulse 88 01/26/18 07:33 Resp 17 01/26/18 06:20 BP 145/67 01/26/18 06:20 Pulse Ox 91 L 01/26/18 06:20 Intake & Output 01/25/18 01/26/18 01/26/18 18:59 06:59 18:59 Other: Voiding Method Bedside Commode # Voids 1 2 # Bowel Movements 1 - Exam GENERAL EXAM: Alert, active, comfortable in no apparent distress. HEAD: Normocephalic. EYES: Normal reaction of pupils, equal size. NOSE: Clear with pink turbinates. THROAT: No erythema or exudates. NECK: No masses, no JVD. CHEST: No chest wall deformity. LUNGS: Lungs noted to have equal air entry with diminished bases CVS: S1 and S2 normal with no audible mumurs, regular rhythm. ABDOMEN: No hepatosplenomegaly, normal bowel sounds, no guarding or rigidity. EXTREMITIES: No edema noted, pedal pulses palpable. SKIN: No rashes CENTRAL NERVOUS SYSTEM: No focal deficits, tone is normal in all 4 extremities. - Labs CBC & Chem 7: 01/23/18 18:41 01/23/18 18:41 Labs: Abnormal Lab Results - Last 24 Hours (Table) 01/25/18 01/25/18 01/25/18 Range/Units 11:36 17:22 20:38 POC Glucose (mg/dL) 130 H 209 H 117 H (75-99) mg/dL 01/26/18 Range/Units 07:08 POC Glucose (mg/dL) 123 H (75-99) mg/dL Microbiology - Last 24 Hours (Table) 01/24/18 11:00 Gram Stain - Preliminary Thoracic Fluid Body Fluid Culture - Preliminary Assessment and Plan Assessment: Assessment Acute on chronic hypoxic respiratory failure requiring supplemental oxygen Right-sided pleural effusion Acute exacerbation of asthma, baseline status unknown Acute exacerbation of COPD History of right upper lobectomy, pathology shows pulmonary adenocarcinoma CAD with stent in the right coronary artery Hypertension Hyperlipidemia Plan Patient is cleared for discharge from pulmonary standpoint Prednisone taper and prescription provided Home oxygen assessment prior to discharge Medications have been reviewed and will be continued as ordered. Right-sided thoracocentesis will be obtained with pathology Risk and benefits of the procedure have been discussed with the patient at length informed consent is obtained Continue with pulmonary hygiene, coughing and deep breathing exercises, and supportive care. Supplemental oxygen to maintain oxygen saturations of 92% or better. Continue nebulizer treatments. Incentive spirometer GI and DVT prophylaxis. We will continue to monitor labs/results and adjust treatment as necessary. Further recommendations pending. I performed an examination of the patient and discussed their management with the nurse practitioner. I have reviewed the nurse practitioner's note and agree with the documented findings and plan of care. <Carlee Hart - Last Filed: 01/26/18 14:30> Objective - Vital Signs Vital signs: Vital Signs Temp 98.6 F 01/26/18 06:20 Pulse 88 01/26/18 07:33 Resp 17 01/26/18 06:20 BP 145/67 01/26/18 06:20 Pulse Ox 91 L 01/26/18 06:20 Intake & Output 01/25/18 01/26/18 01/26/18 18:59 06:59 18:59 Other: Voiding Method Bedside Commode # Voids 1 2 # Bowel Movements 1 - Labs CBC & Chem 7: 01/23/18 18:41 01/23/18 18:41 Labs: Abnormal Lab Results - Last 24 Hours (Table) 01/25/18 01/25/18 01/26/18 Range/Units 17:22 20:38 07:08 POC Glucose (mg/dL) 209 H 117 H 123 H (75-99) mg/dL Microbiology - Last 24 Hours (Table) 01/24/18 11:00 Gram Stain - Preliminary Thoracic Fluid Body Fluid Culture - Preliminary Assessment and Plan Assessment: Patient seen and examined. Ok to DC from pulmonary standpoint. Prednisone taper. Will need to discuss further treatment options for adenocarcinoma of the lung as an outpatient. Cytology is pending on pleural fluid. Continue Symbicort and nebulizer. Home O2 evaluation prior to discharge. Outpatient pulmonary follow up in 3-4 days. ~Carlee Hart, DO
== END 2018-01-26 10:39 | disposition home or self-care (01) | DRG 186 ==
LOC: 4MS4W 15:28
PROVIDERS: ADMIT Family Medicine; ATTEND Family Medicine
PROC: 0W993ZZ Drainage of Right Pleural Cavity, Percutaneous Approach (ICD-10-PCS; principal; 2018-01-24)
DX: J90 Pleural effusion, not elsewhere classified (principal); J96.21 Acute and chronic respiratory failure with hypoxia; J44.1 Chronic obstructive pulmonary disease with (acute) exacerbation; J45.901 Unspecified asthma with (acute) exacerbation; I25.10 Atherosclerotic heart disease of native coronary artery without angina pectoris; E66.9 Obesity, unspecified; E78.5 Hyperlipidemia, unspecified; F17.201 Nicotine dependence, unspecified, in remission; I11.9 Hypertensive heart disease without heart failure; M19.90 Unspecified osteoarthritis, unspecified site; Z95.5 Presence of coronary angioplasty implant and graft; Z99.81 Dependence on supplemental oxygen; Z82.49 Family history of ischemic heart disease and other diseases of the circulatory system; Z79.02 Long term (current) use of antithrombotics/antiplatelets; Z79.899 Other long term (current) drug therapy; Z80.9 Family history of malignant neoplasm, unspecified; Z82.5 Family history of asthma and other chronic lower respiratory diseases; Z85.118 Personal history of other malignant neoplasm of bronchus and lung; Z88.0 Allergy status to penicillin; Z90.2 Acquired absence of lung [part of]; Z90.710 Acquired absence of both cervix and uterus; Z87.440 Personal history of urinary (tract) infections
CPT/HCPCS: 71046; 71275; 76604; 80053; 82945; 83615; 84155; 84157; 85025; 85610; 87070; 87205; 88108; 88305; 88341; 88342; 94640; 94760

== ENCOUNTER → 2018-02-28 | Outpatient (CLI) | payer MEDICARE, OTHER ==
--- NOTE | 2018-03-01 09:08 | CT ---
EXAMINATION TYPE: CT chest wo con DATE OF EXAM: 02/28/2018 COMPARISON: 01/24/2018 HISTORY: Difficulty breathing. Pleural Effusion. CT DLP: [address] of the chest was performed with lung and mediastinal window settings submitted. The la ck of contrast limits evaluation of the vascular, mediastinal and parenchymal structures including th e upper abdomen. LUNGS: Large right-sided pleural effusion extending from the right lung base through the right lung a pex with greatest AP dimension of approximately 5.2 cm. Small loculated component is seen anteriorly. 5.7 mm pulmonary nodule left lung base. MEDIASTINUM/ABDOUL: Thoracic aorta is of normal caliber with limited evaluation given lack of contrast . The heart is not enlarged. Coronary artery calcifications. No evidence for mediastinal mass. No lymph nodes greater than 1cm. UPPER ABDOMEN: No significant abnormality is seen. OTHER: No significant other abnormality. IMPRESSION: 1. Large right-sided pleural effusion is noted. 2. Nonspecific left basilar pulmonary nodule. Follow-up in 6 months is advised. 3. Mild scattered subpleural fibrosis.
== END | disposition home or self-care (01) ==
LOC: RADCTMAIN 18:48
PROVIDERS: ATTEND Family Medicine
DX: J90 Pleural effusion, not elsewhere classified (principal); R91.1 Solitary pulmonary nodule; J84.10 Pulmonary fibrosis, unspecified
CPT/HCPCS: 71250

== ENCOUNTER 2018-03-26 09:56 | Inpatient (IN) | payer MEDICARE, OTHER ==
[2018-03-26] MEDS ORDERED: HYDROcodone/APAP 10-325MG 1 EACH TAB PO PRN (15:41)
[2018-03-26 16:13] LABS: Basophils % (A) 1 %; Eosinophils # (A) 0.3 k/uL (0-0.7); Eosinophils % (A) 6 %; HCT 33.6 % (34.0-46.0); HGB 10.7 gm/dL (11.4-16.0); Hypochromasia Slight; Lymphocytes # (A) 1.5 k/uL (1.0-4.8); Lymphocytes % (A) 30 %; MCH 28.1 pg (25.0-35.0); MCV 87.9 fL (80.0-100.0); Mean Platelet Volume 7.5; Monocytes # (A) 0.3 k/uL (0-1.0); Monocytes % (A) 6 %; Neutrophils # (A) 2.7 k/uL (1.3-7.7); Neutrophils % (A) 53 %; Platelet Count 175 k/uL (150-450); RBC 3.82 m/uL (3.80-5.40); RDW 15.4 % (11.5-15.5)
[2018-03-26 16:22] LABS: INR 1.1 (<1.2); Prothrombin Time 10.3 sec (9.0-12.0)
[2018-03-26 16:23] LABS: ALT 28 U/L (9-52); AST 18 U/L (14-36); Albumin 3.4 g/dL (3.5-5.0); Alkaline Phosphatase 72 U/L (38-126); Anion Gap 5 mmol/L; Blood Urea Nitrogen 21 mg/dL (7-17); Calcium 9.3 mg/dL (8.4-10.2); Carbon Dioxide 32 mmol/L (22-30); Chloride 104 mmol/L (98-107); Glucose 107 mg/dL (74-99); Potassium 4.2 mmol/L (3.5-5.1); Sodium 141 mmol/L (137-145); Total Bilirubin 0.5 mg/dL (0.2-1.3); Total Protein 6.3 g/dL (6.3-8.2)
[2018-03-26] MEDS: ALPRAZolam 0.5 MG TAB PO SCH ×2 (16:43→21:10)
--- NOTE | 2018-03-26 16:52 | US ---
EXAMINATION TYPE: US chest DATE OF EXAM: 03/26/2018 COMPARISON: NONE CLINICAL HISTORY: pleural effusion. SOB TECHNIQUE: Targeted ultrasound of the posterior lower EXAM MEASUREMENTS: Right Pleural Effusion pocket size: 9.8 cm Right skin surface to fluid distance: 6.4 cm Left Pleural Effusion pocket size: 0 Right side marked for possible thoracentesis outside the dept. Pulmonologists are able to review the images in the patient?s EMR. IMPRESSIONS: Moderate right pleural effusion is demonstrated.
--- NOTE | 2018-03-26 17:02 | XR ---
EXAMINATION TYPE: XR chest 2V DATE OF EXAM: 03/26/2018 COMPARISON: 01/25/2018 HISTORY: Short of breath TECHNIQUE: Frontal and lateral views of the chest are obtained. FINDINGS: Heart and mediastinum are shifted slightly to the right side. There is elevated right diap hragm with coarse interstitial right pulmonary density and mild pleural thickening. Left lung is dottie r. There is no heart failure. IMPRESSION: Pleural and pulmonary infiltrate and scarring and volume loss on the right side that is unchanged. No heart failure. Partial right pneumonectomy.
[2018-03-26] MEDS: methylPREDNISolone SOD SUCCI 125 MG/2 ML VIAL IV SCH ×2 (17:42→23:37)
[2018-03-26] MEDS: CARVEDILOL 3.125 MG TAB PO SCH (17:43)
[2018-03-26] MEDS: SODIUM CHLORIDE 0.9% 1,000 ML IV SCH (17:45)
[2018-03-26 20:34] LABS: Glucose,Whole Blood 140 mg/dL (75-99)
[2018-03-26] MEDS ORDERED: MONTELUKAST 10 MG TAB PO SCH (21:00)
[2018-03-26] MEDS ORDERED: ATORVASTATIN 80 MG TAB PO SCH (21:00)
[2018-03-26] MEDS: FAMOTIDINE 20 MG TAB PO SCH (21:10)
[2018-03-26] MEDS: INSULIN ASPART 100 UNIT/ML 1 ML 10 ML VIAL SQ SCH (21:11)
[2018-03-26] MEDS: BUDESONIDE 0.5 MG/2 ML NEBU INHALATION SCH (21:59)
[2018-03-26] MEDS: ALBUTEROL NEBULIZED 2.5 MG/3 ML INHALATION PRN (21:59)
--- NOTE | 2018-03-26 23:56 | HP ---
HISTORY AND PHYSICAL CHIEF COMPLAINT: 78-year-old white female with hypoxemia. HISTORY OF PRESENT ILLNESS: 78-year-old white female, worsening hypoxemia and worsening perfusion up 9.8 cm on ultrasound of her chest. She will need thoracentesis in the morning to drain fluid out of her lung. Will get Dr. Hart to see her who she normally sees for her who drained her last pleural effusion to see her in the morning. She is status post lung surgery with lung resection for lung cancer. HOME MEDICATIONS: Include Harrison, Xanax, Lipitor, Pulmicort, Coreg, Pepcid, Lasix, insulin, Claritin, Singulair, K-Dur. REVIEW OF SYSTEMS: Fourteen point review of systems negative except for shortness of breath. PHYSICAL EXAM: Vital signs stable. Afebrile. O2 2 L is 96%. Cardiovascular S1, S2. LUNGS: Decreased breath sounds in the right lung base. ABDOMEN: Soft, nontender. Distended, obesity. Hematology negative Homans. Psych fair mood and affect. NEUROLOGIC: Alert and oriented x3. OPHTHALMOLOGIC: Pupils equal, round, react to light and accommodation. ASSESSMENT: 1. Chronic obstructive pulmonary disease. 2. Status post lobectomy removal. 3. Lung cancer, carcinoma of the lung, non-small cell. 4. Pleural effusion. Will need thoracentesis in the morning. [employer] [place] Dr. Hart is on consult for thoracentesis. Will follow up in next 24-48 hours for possible discharge after thoracentesis. MMODL / IJN: [id number] /
[2018-03-27] MEDS: SODIUM CHLORIDE 0.9% 1,000 ML IV SCH (05:40)
[2018-03-27 05:48] LABS: Hemoglobin A1C 6.2 % (4.0-6.0)
[2018-03-27 07:32] LABS: Glucose,Whole Blood 143 mg/dL (75-99)
[2018-03-27] MEDS: methylPREDNISolone SOD SUCCI 125 MG/2 ML VIAL IV SCH (07:47)
[2018-03-27] MEDS: INSULIN ASPART 100 UNIT/ML 1 ML 10 ML VIAL SQ SCH ×2 (07:47→12:53)
[2018-03-27] MEDS: FAMOTIDINE 20 MG TAB PO SCH (07:48)
[2018-03-27] MEDS: ALPRAZolam 0.5 MG TAB PO SCH (07:48)
[2018-03-27] MEDS: CARVEDILOL 3.125 MG TAB PO SCH (07:48)
[2018-03-27 07:54] VITALS: BP 134/64; RESP 16; TEMP 97.4
[2018-03-27] MEDS: BUDESONIDE 0.5 MG/2 ML NEBU INHALATION SCH (07:58)
[2018-03-27] MEDS: ALBUTEROL NEBULIZED 2.5 MG/3 ML INHALATION PRN (08:00)
[2018-03-27 08:01] VITALS: PULSE 88
[2018-03-27] MEDS ORDERED: FUROSEMIDE 20 MG TAB PO SCH (09:00)
[2018-03-27] MEDS ORDERED: POTASSIUM CHLORIDE ER 10 MEQ TAB.ER.PRT PO SCH (09:00)
[2018-03-27] MEDS ORDERED: LORATADINE 10 MG TAB PO SCH (09:00)
[2018-03-27] MEDS ORDERED: LIDOCAINE 1% INJ 10MG/ML (20 ML MDV) SQ ONE (09:44)
--- NOTE | 2018-03-27 09:57 | P.CNPUL ---
<Cuca Bird E - Last Filed: 03/27/18 09:43> History of Present Illness Consult date: 03/27/18 Requesting physician: Billy Saul Reason for consult: COPD, pleural effusion Chief complaint: shortness of breath History of present illness: This is a 78-year-old female patient being seen examined and evaluated today for consultation on rounds. She does have a significant history for spiculated right upper lobe mass status post right upper lobectomy with pathology showing adenocarcinoma, CAD, hyperlipidemia, hypertension, chronic moderate to severe persistent asthma and nicotine dependence that she quit smoking in July or August of this year. Patient also did have a recent right upper lobectomy with Dr. Lares in on 11/02/2017. 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 Mediastinal lymph node dissections were completed and were non metastasis. Chest did have an outpatient cardiac catheter procedure on 2017 and did have a stent to her right coronary artery recently on 01/01/2018. The patient did previously smoke a half pack per day for over 50 years. 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 The patient came over to the hospital as a direct admit from Dr. Saul's office yesterday afternoon. Patient did have a chest x-ray which showed right-sided pleural effusion and infiltrate, scarring and volume loss to the right side. She did have an ultrasound that did reveal the right-sided pleural effusion with 9.8 cm. The patient was admitted to the hospital in January for similar findings and at that time she did undergo a thoracentesis on 01/24/18- and the final pathologic diagnosis of the pleural fluid did show atypical epithelioid cells, reactive mesothelial cells and mixed inflammatory cells predominantly mononuclear consistent with reactive pleuritis. She is noted to have 2 L of supplemental oxygen at home at all times. Upon examination the patient's resting up in bed on 2 L of supplemental oxygen. States she feels short of breath with exertion and activity. She does take DuoNeb and budesonide at home. She is afebrile no further complaints. All labs and reports reviewed. Review of Systems 14 point review of systems was completed and is negative unless noted above in the HPI Past Medical History Past Medical History: Asthma, Coronary Artery Disease (CAD), Cancer, COPD, Eye Disorder, Hyperlipidemia, Hypertension, Osteoarthritis (OA), Pneumonia, Respiratory Disorder Additional Past Medical History / Comment(s): Right upper lobe adenocarcinoma status post right upper lobectomy October 2017-no chemo or radiation, R pleural effusion with thoracentesis 01/2018, home o2 2 liters n/c, positive stress test, status post heart cath/stent placement to her right coronary artery using Xience drug-eluting stent in December 2017, pre cancerous polyp, arthritis multiple joints, L shoulder "missing a bone d/t wear", History of Any Multi-Drug Resistant Organisms: None Reported Past Surgical History: Appendectomy, Bowel Resection, Ear Surgery, Heart Catheterization With Stent, Hernia Repair, Hysterectomy, Tonsillectomy Additional Past Surgical History / Comment(s): Colon/bowel surgery-"too much bowel" done in her 30's-21 inches removed, bilateral cataracts removed, bilateral eyes laser surgery, hemorroidectomy, hiatal hernia, 11-02-17 robotic rt upper lobectomy w/mediastinal lymph node dissection, cardiac stents to rca Past Anesthesia/Blood Transfusion Reactions: No Reported Reaction Additional Past Anesthesia/Blood Transfusion Reaction / Comment(s): never recieved blood Date of Last Stent Placement:: 01/01/18 Xience NIVIA RCA Smoking Status: Former smoker - Past Family History Sister(s) Family Medical History: Coronary Artery Disease (CAD) Father Family Medical History: CVA/TIA, Myocardial Infarction ([place]) Mother Family Medical History: Cancer Additional Family Medical History / Comment(s): bowel cancer Medications and Allergies Home Medications Medication Instructions Recorded Confirmed Type ALPRAZolam [Xanax] 0.5 mg PO TID 03/19/14 03/26/18 History Cetirizine HCl [Zyrtec] 10 mg PO DAILY 03/19/14 03/26/18 History Famotidine [Pepcid] 20 mg PO BID 03/19/14 03/26/18 History Montelukast [Singulair] 10 mg PO HS 09/15/17 03/26/18 History Albuterol Inhaler [Ventolin Hfa 1 puff INHALATION RT-BID PRN 10/30/17 03/26/18 History Inhaler] Carvedilol [Coreg] 3.125 mg PO AC-BID 10/30/17 03/26/18 History Atorvastatin [Lipitor] 80 mg PO HS #90 tab 01/01/18 03/26/18 Rx Clopidogrel [Plavix] 75 mg PO DAILY #90 tab 01/01/18 03/26/18 Rx HYDROcodone/APAP 10-325MG [Roma 1 tab PO TID PRN 01/23/18 03/26/18 History 10-325] Budesonide [Pulmicort] 0.5 mg INHALATION RT-BID 03/26/18 03/26/18 History Furosemide [Lasix] 20 mg PO DAILY 03/26/18 03/26/18 History Ipratropium Nebulized [Atrovent 0.5 mg INHALATION RT-TID 03/26/18 03/26/18 History Nebulized] Potassium Chloride [Klor-Con 10] 10 meq PO DAILY 03/26/18 03/26/18 History Allergies Allergy/AdvReac Type Severity Reaction Status Date / Time Penicillins Allergy Rash/Hives Verified 03/26/18 15:19 Physical Exam Vitals: Vital Signs Temp Pulse Pulse Resp BP Pulse Ox 03/27/18 08:10 88 03/27/18 08:00 88 03/27/18 07:20 97.4 F L 87 16 134/64 93 L 03/26/18 23:00 96.6 F L 89 22 139/63 93 L 03/26/18 22:14 80 96 03/26/18 22:04 82 03/26/18 16:00 22 03/26/18 14:35 96.6 F L 72 22 114/57 98 03/26/18 12:40 96.1 F L 78 16 127/59 99 Intake and Output 03/26/18 03/27/18 03/27/18 22:59 06:59 14:59 Other: # Voids 1 2 GENERAL EXAM: Alert, active, comfortable in no apparent distress. HEAD: Normocephalic. EYES: Normal reaction of pupils, equal size. NOSE: Clear with pink turbinates. THROAT: No erythema or exudates. NECK: No masses, no JVD. CHEST: No chest wall deformity. LUNGS: Lungs noted to be diminished throughout with decreased breath sounds at the right lung base. CVS: S1 and S2 normal with no audible mumurs, regular rhythm. ABDOMEN: No hepatosplenomegaly, normal bowel sounds, no guarding or rigidity. EXTREMITIES: Trace edema noted, pedal pulses palpable. CENTRAL NERVOUS SYSTEM: No focal deficits, tone is normal in all 4 extremities. Results - Laboratory Findings CBC and BMP: 03/26/18 15:57 03/26/18 15:57 PT/INR, D-dimer PT 10.3 sec (9.0-12.0) 03/26/18 15:57 INR 1.1 (<1.2) 03/26/18 15:57 Abnormal lab findings: Abnormal Labs 03/26/18 03/26/18 03/26/18 15:57 15:57 15:57 Hgb 10.7 L Hct 33.6 L Carbon Dioxide 32 H BUN 21 H Glucose 107 H POC Glucose (mg/dL) Hemoglobin A1c 6.2 H Albumin 3.4 L 03/26/18 03/27/18 20:33 07:28 Hgb Hct Carbon Dioxide BUN Glucose POC Glucose (mg/dL) 140 H 143 H Hemoglobin A1c Albumin - Diagnostic Findings Chest x-ray: report reviewed, image reviewed Assessment and Plan Assessment: Assessment Acute exacerbation of COPD Right-sided pleural effusion Adenocarcinoma of the lung Status post lobectomy Moderate to severe chronic persistent asthma Acute on chronic hypoxic respiratory failure requiring supplemental oxygen CAD with stents in the right coronary artery Hypertension Hyperlipidemia Plan Medications have been reviewed and will be continued as ordered. Chest x-ray and ultrasound has been obtained Right-sided thoracocentesis will be obtained Risk and benefits of the procedure have been discussed with the patient at length Steroid taper Continue with pulmonary hygiene, coughing and deep breathing exercises, and supportive care. Supplemental oxygen to maintain oxygen saturations of 92% or better. Continue nebulizer treatments. Incentive spirometer GI and DVT prophylaxis. We will continue to monitor labs/results and adjust treatment as necessary. Thank you for this consultation we will continue to follow this patient with you I performed an examination of the patient and discussed their management with the nurse practitioner. I have reviewed the nurse practitioner's note and agree with the documented findings and plan of care. <Carlee Hart - Last Filed: 03/27/18 14:05> Physical Exam Osteopathic Statement: *. No significant issues noted on an osteopathic structural exam other than those noted in the History and Physical/Consult. Vitals: Vital Signs Temp Pulse Pulse Resp BP Pulse Ox 03/27/18 08:10 88 03/27/18 08:00 88 03/27/18 07:20 97.4 F L 87 16 134/64 93 L 03/26/18 23:00 96.6 F L 89 22 139/63 93 L 03/26/18 22:14 80 96 03/26/18 22:04 82 03/26/18 16:00 22 03/26/18 14:35 96.6 F L 72 22 114/57 98 Intake and Output 03/26/18 03/27/18 03/27/18 22:59 06:59 14:59 Other: # Voids 1 2 Results - Laboratory Findings CBC and BMP: 03/27/18 08:53 03/27/18 08:53 PT/INR, D-dimer PT 10.3 sec (9.0-12.0) 03/26/18 15:57 INR 1.1 (<1.2) 03/26/18 15:57 Abnormal lab findings: Abnormal Labs 03/26/18 03/26/18 03/26/18 15:57 15:57 15:57 WBC Hgb 10.7 L Hct 33.6 L Neutrophils # Carbon Dioxide 32 H BUN 21 H Creatinine Glucose 107 H POC Glucose (mg/dL) Hemoglobin A1c 6.2 H Albumin 3.4 L 03/26/18 03/27/18 03/27/18 20:33 07:28 08:53 WBC 10.8 H Hgb Hct Neutrophils # 9.4 H Carbon Dioxide BUN Creatinine Glucose POC Glucose (mg/dL) 140 H 143 H Hemoglobin A1c Albumin 03/27/18 03/27/18 08:53 12:24 WBC Hgb Hct Neutrophils # Carbon Dioxide BUN Creatinine 0.49 L Glucose 160 H POC Glucose (mg/dL) 134 H Hemoglobin A1c Albumin Assessment and Plan Assessment: Patient seen and examined. Patient states her breathing has been about at baseline. She states she was admitted for abnormal CXR. The patient had previous thoracentesis which was negative for malignant cells. It is explained at length to the patient that after lobectomy, it is a normal response for the body to fill the space with pleural fluid. If no malignant cells are present after thoracentesis, there is no need for future thoracentesis. Post procedure CXR to be done. See procedure note. OK to DC from pulmonary standpoint. ~Carlee Hart DO
[2018-03-27 10:00] LABS: Albumin 3.6 g/dL (3.5-5.0); Anion Gap 8 mmol/L; Calcium 9.2 mg/dL (8.4-10.2); Carbon Dioxide 25 mmol/L (22-30); Chloride 107 mmol/L (98-107); Glucose 160 mg/dL (74-99); Sodium 140 mmol/L (137-145); Total Bilirubin 0.6 mg/dL (0.2-1.3); Total Protein 6.8 g/dL (6.3-8.2)
[2018-03-27 10:04] LABS: ALT 9 U/L (9-52); AST 26 U/L (14-36); Alkaline Phosphatase 87 U/L (38-126); Blood Urea Nitrogen 16 mg/dL (7-17); Potassium 4.8 mmol/L (3.5-5.1)
[2018-03-27 10:11] LABS: Basophils % (A) 0 %; Eosinophils % (A) 0 %; HCT 36.7 % (34.0-46.0); HGB 11.5 gm/dL (11.4-16.0); Hypochromasia Slight; Lymphocytes # (A) 1.1 k/uL (1.0-4.8); Lymphocytes % (A) 11 %; MCH 27.7 pg (25.0-35.0); MCHC 31.3 g/dL (31.0-37.0); MCV 88.5 fL (80.0-100.0); Mean Platelet Volume 8.1; Monocytes # (A) 0.2 k/uL (0-1.0); Monocytes % (A) 2 %; Neutrophils # (A) 9.4 k/uL (1.3-7.7); Neutrophils % (A) 87 %; Platelet Count 208 k/uL (150-450); RBC 4.15 m/uL (3.80-5.40); RDW 15.2 % (11.5-15.5); WBC 10.8 k/uL (3.8-10.6)
[2018-03-27 12:28] LABS: Glucose,Whole Blood 134 mg/dL (75-99)
[2018-03-27] MEDS ORDERED: IPRATROPIUM-ALBUTEROL 3 ML NEB INHALATION SCH (13:00)
--- NOTE | 2018-03-27 13:47 | P.PCN ---
Date of Procedure: 03/27/18 Preoperative Diagnosis: Right pleural effusion Postoperative Diagnosis: Right pleural effusion Surgeon: Carlee Hart Description of Procedure: Date: 03/27/2018 Time: 1300 Indication: Large right pleural effusion A time-out was completed verifying correct patient, procedure, site, positioning , and special equipment if applicable. The patients right side was prepped and draped in a sterile manner after the appropriate infiltration level was confirmed by ultrasound. 1% lidocaine was used anesthetize the surrounding skin. A finder needle was then used to locate fluid and josé miguel fluid was obtained. A 10-blade scalpel used to make the incision. The thoracentesis catheter was then threaded without difficulty. The patient had 700 of clear yellow fluid removed. A post-procedure chest x-ray was ordered and the fluid will be sent for several studies. Estimated Blood Loss: 0 cc The patient tolerated the procedure well and there were no complications.
--- NOTE | 2018-03-27 14:34 | XR ---
EXAMINATION TYPE: XR chest 1V portable DATE OF EXAM: 03/27/2018 COMPARISON: 03/26/2018 HISTORY: Postthoracentesis TECHNIQUE: Single frontal view of the chest is obtained. FINDINGS: Right hilar soft tissue fullness is stable. Pleural tenting on the right with small effusi on seen. No sizable pneumothorax. Heart size stable. Diffuse osteopenia. Atherosclerotic change of th e aorta. Subsegmental changes at the right lung base. IMPRESSION: 1. Right hilar soft tissue fullness with pleural tenting and small effusion but no pneumothorax.
[2018-03-27 18:05] LABS: Appearance,BF Cloudy; Color,BF Yellow
[2018-03-27 20:07] LABS: Nucleated Cells, Body Fluid 4500 /uL; RBC, Body Fluid 3200 /uL
[2018-03-27 20:09] LABS: Mononuclear WBC,Body Fluid 97 %; Polynuclear WBC,Body Fluid 3 %; Total Cells Counted,Body Fluid 100
== END 2018-03-27 16:24 | disposition home or self-care (01) | DRG 190 ==
LOC: 4MS4W 12:18
PROVIDERS: ADMIT Family Medicine; ATTEND Family Medicine
PROC: 0W993ZZ Drainage of Right Pleural Cavity, Percutaneous Approach (ICD-10-PCS; principal; 2018-03-26)
DX: J44.1 Chronic obstructive pulmonary disease with (acute) exacerbation (principal); J96.21 Acute and chronic respiratory failure with hypoxia; J90 Pleural effusion, not elsewhere classified; E78.5 Hyperlipidemia, unspecified; I10 Essential (primary) hypertension; I25.10 Atherosclerotic heart disease of native coronary artery without angina pectoris; J45.50 Severe persistent asthma, uncomplicated; Z79.02 Long term (current) use of antithrombotics/antiplatelets; Z82.49 Family history of ischemic heart disease and other diseases of the circulatory system; Z85.118 Personal history of other malignant neoplasm of bronchus and lung; Z87.891 Personal history of nicotine dependence; Z90.2 Acquired absence of lung [part of]; Z90.710 Acquired absence of both cervix and uterus; Z95.5 Presence of coronary angioplasty implant and graft; Z99.81 Dependence on supplemental oxygen; Z79.4 Long term (current) use of insulin; Z79.891 Long term (current) use of opiate analgesic; Z79.51 Long term (current) use of inhaled steroids; Z79.899 Other long term (current) drug therapy; Z98.42 Cataract extraction status, left eye; Z98.41 Cataract extraction status, right eye; Z88.0 Allergy status to penicillin
CPT/HCPCS: 71045; 71046; 76604; 80053; 83036; 83615; 84157; 85025; 85610; 89050; 94640

== ENCOUNTER → 2018-06-06 | Outpatient (CLI) | payer MEDICARE, OTHER ==
[2018-06-06 15:36] LABS: Blood Urea Nitrogen 20 mg/dL (7-17)
--- NOTE | 2018-06-06 17:24 | CT ---
EXAMINATION TYPE: CT chest w con DATE OF EXAM: 06/06/2018 COMPARISON: 02/28/2018 HISTORY: Adenocarcinoma, lung cancer, pleural effusion CT DLP: 464.80 mGycm, Automated exposure control for dose reduction was used. CONTRAST: Performed injected with 100 mL of Isovue 300. TECHNIQUE: Axial images were obtained at 5 mm thick sections. Reconstructed images are reviewed on [employer] computer in the coronal plane. FINDINGS: Portion of the thyroid visualized is normal. There is a large loculated right pleural effusion. No enlarged mediastinal or hilar adenopathy is evident. There is a 0.9 cm lymph node in the right p eribronchial region. Small lymph nodes are in the aortopulmonic window laterally. The ascending aorta diameter at the level of the main pulmonary artery is 2.7 cm. The main pulmonary artery diameter at the bifurcation is 2.1 cm. Coronary artery calcifications present. Limited CT sections are obtained through the upper abdomen. No acute changes are evident. Some fusifo rm prominence proximal abdominal aorta may be present. IMPRESSIONS: 1. Stable large loculated pleural effusion. 2. Subcentimeter stable adenopathy within the mediastinum. 3. Continued monitoring is recommended.
== END | disposition home or self-care (01) ==
LOC: RADCTMAIN 14:40
PROVIDERS: ATTEND Internal Medicine Critical Care Medicine
DX: C34.90 Malignant neoplasm of unspecified part of unspecified bronchus or lung (principal); J90 Pleural effusion, not elsewhere classified
CPT/HCPCS: 82565; 84520; 71260; 36415; Q9967

== ENCOUNTER → 2018-09-11 | Outpatient (CLI) | payer MEDICARE, OTHER ==
--- NOTE | 2018-09-12 08:44 | CT ---
EXAMINATION TYPE: CT chest wo con DATE OF EXAM: 09/11/2018 COMPARISON: 06/06/2018 HISTORY: pleural effusion, lung ca CT DLP: 654 mGycm, Automated exposure control for dose reduction was used. CONTRAST: Performed injected with 0 mL of Isovue 300. TECHNIQUE: Axial images were obtained at 5 mm thick sections. Reconstructed images are reviewed on [employer] computer in the coronal plane. FINDINGS: Portion of the thyroid visualized is normal. There is a moderate right pleural effusion. This was present previously and is stable. There is a 0.5 cm nodule within the posterior lateral left lung base. Series 4 image 39. This was pre sent previously and is stable. No enlarged mediastinal or hilar adenopathy is evident. Scattered small lymph nodes are within the mediastinum The ascending aorta diameter at the level of the main pulmonary artery is 3.0 cm. The ma in pulmonary artery diameter at the bifurcation is 2.2 cm. A moderately extensive vascular calcificat ions within the coronary vessels. Limited CT sections are obtained through the upper abdomen. Abdomen is essentially unremarkable. IMPRESSIONS: 1. Stable moderate right pleural effusion and 0.5 cm posterior lateral left lung base nodule. 2. No suspicious new changes. 3. Continued monitoring is recommended.
== END | disposition home or self-care (01) ==
LOC: RADCTMAIN 16:18
PROVIDERS: ATTEND Family Medicine
DX: J90 Pleural effusion, not elsewhere classified (principal); R91.1 Solitary pulmonary nodule
CPT/HCPCS: 71250

== ENCOUNTER → 2018-10-04 | Outpatient (CLI) | payer MEDICARE, OTHER ==
--- NOTE | 2018-10-04 15:13 | US ---
EXAMINATION TYPE: US chest DATE OF EXAM: 10/04/2018 COMPARISON: Chest x-ray same date CLINICAL HISTORY: Rt side pleural effusion J90. Right pleural effusion TECHNIQUE: Targeted ultrasound of the posterior lower right hemithorax EXAM MEASUREMENTS: Right Pleural Effusion pocket size: 9.7 cm Right skin surface to fluid distance: 4.7 cm Right side MARKED for possible thoracentesis outside the dept. Pulmonologists are able to review the images in the patient?s EMR. IMPRESSIONS: Right pleural effusion.
== END | disposition home or self-care (01) ==
LOC: RADUSWWP 12:22
PROVIDERS: ATTEND Internal Medicine Critical Care Medicine
DX: J90 Pleural effusion, not elsewhere classified (principal)
CPT/HCPCS: 76604

== ENCOUNTER → 2018-10-04 | Day surgery (SDC) | payer MEDICARE, OTHER ==
[2018-10-04 13:43] VITALS: BP 138/77; RESP 20
[2018-10-04 13:46] VITALS: PULSE 72; TEMP 97.8
--- NOTE | 2018-10-04 14:46 | XR ---
EXAMINATION TYPE: XR chest 1V portable DATE OF EXAM: 10/04/2018 COMPARISON: 03/27/2018 HISTORY: Status post right-sided thoracentesis TECHNIQUE: Single frontal view of the chest is obtained. FINDINGS: There is tenting of the right hemidiaphragm and a trace remaining right pleural effusion. Minimal right infrahilar airspace disease likely represents atelectasis. Cardia mediastinal silhouett e is enlarged. No sizable pneumothorax is appreciated status post thoracentesis. There is generalized osseous demineralization present. IMPRESSION: Trace residual right pleural effusion and probable right basilar atelectasis status post thoracentesis. No pneumothorax is identified.
--- NOTE | 2018-10-04 18:52 | OP ---
OPERATIVE REPORT DATE OF SERVICE: 10/04/2018. PREOPERATIVE DIAGNOSIS: Right-sided pleural effusion. POSTOPERATIVE DIAGNOSIS: Right-sided pleural effusion. DESCRIPTION OF PROCEDURE: A time-out was completed verifying correct patient, procedure, site, positioning, and implant (s) or special equipment if applicable. Ultrasound guidance was used and appropriate fluid pocket was identified and marked. Patient was positioned, prepped and draped in usual sterile fashion. Lidocaine was used to anesthetize the area. A thoracentesis catheter was introduced into the pleural space and fluid was removed. Blood loss was none. A chest x-ray was ordered to evaluate for pneumothorax. Total Fluid Removed 600 mL Color of Fluid Turbid, dark yellowish Fluid was sent for appropriate laboratory tests. No bedside complications or bleeding. MMODL / IJN: [id number] /
== END | disposition home or self-care (01) ==
LOC: PROCWHC3 13:03
PROVIDERS: ATTEND Internal Medicine Critical Care Medicine
DX: J90 Pleural effusion, not elsewhere classified (principal)
CPT/HCPCS: 32554; 71045; 76604; 88108; 88305; 88341; 88342

== ENCOUNTER → 2018-10-30 | Outpatient (CLI) | payer MEDICARE, OTHER ==
--- NOTE | 2018-10-30 16:44 | XR ---
EXAMINATION TYPE: XR chest 2V DATE OF EXAM: 10/30/2018 COMPARISON: 10/10/2018, 10/04/2018 INDICATION: Pleural effusion TECHNIQUE: Frontal and lateral views of the chest are obtained. FINDINGS: The heart size is mildly enlarged. The pulmonary vasculature is normal. There is a small right pleural effusion. Atelectasis with tenting along the diaphragm is evident. Und erlying mass is not excluded. This should be followed to clearing. Findings were present previously.. IMPRESSION: 1. Mild cardiomegaly. 2. Right subpulmonic effusion present previously. 3. Right basilar atelectasis with slight improvement. For underlying mass in the right lower lobe is not excluded. Follow-up examinations are recommended
== END | disposition home or self-care (01) ==
LOC: RADXRMAIN 13:51
PROVIDERS: ATTEND Family Medicine
DX: J98.11 Atelectasis (principal); I51.7 Cardiomegaly
CPT/HCPCS: 71046

== ENCOUNTER 2018-11-08 09:12 | Day surgery (SDC) | payer MEDICARE, OTHER ==
[2018-11-07 12:48] VITALS: BMI 33.8
[~2018-11-08 09:12] MED LIST changes: -ALPRAZolam 0.25 MG TAB PO PRN; -ALPRAZolam 0.5 MG TAB PO PRN; -ASPIRIN 325 MG TAB PO STA; -ATORVASTATIN 80 MG TAB PO STA; +DEXAMETHASONE SOD PHOSPHATE 10 MG/ML 1 ML VIAL IV ONE; +LACTATED RINGERS 1,000 ML IV SCH; +LIDOCAINE 1% 20 ML VIAL (10MG/ML) FOR IV START INTRADERMA PRN; +MIDAZOLAM (PF) 2 MG/2 ML VIAL IV PRN; -NITROGLYCERIN SL TABS 0.4 MG TAB SUBLINGUAL PRN; +ONDANSETRON 4 MG/2 ML VIAL IVP ONE; +SCOPOLAMINE 1.5MG/72HR PATCH TRANSDERM ONE; -SODIUM CHLORIDE 0.9% 1,000 ML in EMPTY BAG 1 BAG IV ONE; +ceFAZolin IN SWFI 2 GM/20 ML SYRINGE IVP ONE
[2018-11-08] MEDS ORDERED: LIDOCAINE 1% INJ 10MG/ML (20 ML MDV) SQ ONE ×3 (09:53→10:47)
[2018-11-08] MEDS ORDERED: MIDAZOLAM 2 MG/2 ML VIAL ONE (10:31)
[2018-11-08] MEDS ORDERED: LIDOCAINE 1% INJ 10MG/ML (20 ML MDV) ONE (10:31)
[2018-11-08] MEDS ORDERED: fentaNYL (PF) 50 MCG/ML 2 ML AMP ONE (10:31)
[2018-11-08] MEDS ORDERED: PROPOFOL 10 MG/ML 20 ML VIAL IV ONE (10:31)
[2018-11-08 11:17] VITALS: TEMP 97
[2018-11-08 11:47] VITALS: RESP 18
--- NOTE | 2018-11-08 12:02 | XR ---
EXAMINATION TYPE: XR chest 1V portable DATE OF EXAM: 11/08/2018 Comparison: 10/30/2018 Clinical History: 78-year-old female post Pleurx cath Findings: Right-sided pleural catheter is now present. Focal right basilar opacity with small effusion redemons trated. Hyperinflation. Heart mildly enlarged. This seems to be increased prominence along the right hilar and right paratracheal region. No pneumothorax is clearly seen. Impression: Altered appearance after right sided pleural catheter placement. While there is no evident pneumothor ax, there is prominent right hilar and right paratracheal opacity now present. Possible result of gonzales e degree of volume loss and shift of the heart and mediastinum to the right. Recommend dedicated PA v iew to reassess. If the finding persists, contrast-enhanced CT may be indicated.
--- NOTE | 2018-11-08 12:04 | P.OP ---
Date of Procedure: 11/08/18 Preoperative Diagnosis: Recurrent nonmalignant right pleural effusion, status post right upper lobectomy Postoperative Diagnosis: Same Procedure(s) Performed: Right Pleurx catheter placement Implants: Pleurx catheter Anesthesia: MAC Surgeon: Jabari Mix Estimated Blood Loss (ml): 2 IV fluids (ml): 100 Urine output (ml): 0 Pathology: other (Right pleural fluid for cytology) Condition: stable Disposition: PACU Indications for Procedure: 78-year-old morbidly obese female with previous right upper lobectomy for early stage lung cancer one year ago. 6 months after surgery she developed a right pleural effusion. This is now been tapped 3 times and has been recurrent. Patient requires oxygen while she has a pleural effusion and is very unhappy with current status. She does have a history of congestive heart failure and this is being treated. Recommendation was made for Pleurx catheter for control of the pleural effusion, minimization of symptomatology, and eventual pleurodesis. Recurrent cytology has been negative. Operative Findings: 750 mL of clear serous fluid was drained. Description of Procedure: The patient was brought to the operating room, placed supine on the operating table. The right arm was left out on an arm board the left arm was tucked. The right chest and upper abdomen were sterilely prepped and draped. 1% lidocaine was used for anesthesia. IV sedation was given. An 18-gauge needle was used to puncture the right pleural space in the posterior axillary line in the seventh interspace and guidewire was threaded into the pleural space under fluoroscopic guidance. Counterincision was made in the right upper quadrant and Pleurx catheter was tunneled from this counterincision to an incision made at the wire site. Introducer and dilator were placed over the wire and through the introducer sheath the Pleurx catheter was introduced into the pleural space and good positioning was confirmed with fluoroscopy. Introducer sheath was removed. The Pleurx catheter was connected to suction. Pleurx catheter was stabilized at the exit site with a 2-0 silk suture. The entry site incision was closed with layers of Vicryl skin suture and skin glue. 750 mL total was drained and then the catheter was capped. Standard Pleurx dressing was applied. Final fluoroscopy showed complete evacuation of the hydrothorax and good position of the Pleurx catheter with no pneumothorax.
[2018-11-08 12:48] VITALS: PULSE 62
[2018-11-08 13:03] VITALS: BP 138/64
--- NOTE | 2018-11-08 15:27 | FL ---
EXAMINATION TYPE: FL fluoroscopy <1hr DATE OF EXAM: 11/08/2018 COMPARISON: NONE HISTORY: Chest tube insertion Fluoroscopy support supplied to the referring clinician. See dictated report from cardiothoracic leilani michelle, 4 seconds fluoroscopy time supplied, single intraoperative C-arm image documents the procedure
== END 2018-11-08 14:03 | disposition home health service (06) ==
LOC: OR 09:12
PROVIDERS: ATTEND Thoracic Surgery (Cardiothoracic Vascular Surgery)
DX: J90 Pleural effusion, not elsewhere classified (principal); Z85.118 Personal history of other malignant neoplasm of bronchus and lung; Z90.2 Acquired absence of lung [part of]; E66.01 Morbid (severe) obesity due to excess calories; K21.9 Gastro-esophageal reflux disease without esophagitis; Z88.0 Allergy status to penicillin; Z79.01 Long term (current) use of anticoagulants; J44.9 Chronic obstructive pulmonary disease, unspecified; I10 Essential (primary) hypertension; I25.10 Atherosclerotic heart disease of native coronary artery without angina pectoris; E78.5 Hyperlipidemia, unspecified; Z87.891 Personal history of nicotine dependence; Z79.891 Long term (current) use of opiate analgesic; Z95.5 Presence of coronary angioplasty implant and graft
CPT/HCPCS: 32550; 75989; 71045; J2250; J1100; J2405; J2001; J3010; J2704; J0690; 76000; 88108; 88305; 88341; 88342

== ENCOUNTER → 2019-04-04 | Outpatient (CLI) | payer MEDICARE, OTHER ==
--- NOTE | 2019-04-04 14:38 | CT ---
EXAMINATION TYPE: CT chest wo con DATE OF EXAM: 04/04/2019 COMPARISON: 09/11/2018 and 06/06/2018 HISTORY: 79-year-old female pleural effusion TECHNIQUE: Contiguous axial scanning of the chest without IV contrast. Coronal and sagittal reconstru ctions performed. CT DLP: 658 mGycm Automated exposure control for dose reduction was used. FINDINGS: Heart upper limits of normal in size without pericardial effusion. Extensive three-vessel coronary ve ssel calcifications are present. Aorta normal caliber with moderate atherosclerotic arch calcifications and conventional arch vessel b ranching anatomy. There is rightward cardiomediastinal shift secondary to volume loss in the right hemithorax. An 8 mm right tracheobronchial angle lymph node remains unchanged. No new thoracic lymphadenopathy. P ost surgical changes may reflect prior right upper and right middle lobectomies. Chronic appearing sm all right pleural effusion with associated subpleural reticular changes, likely scarring. Volume loss in right hemithorax. Effusion shows considerable decrease in size from 09/11/2018. No suspicious pulmonary nodule is seen. Visualized upper abdomen shows a 9 mm gallstone and prominent ingested debris in the stomach. Bones: No osseous destructive process. IMPRESSION: 1. POST SURGICAL CHANGES OF RIGHT UPPER AND RIGHT MIDDLE LOBECTOMIES WITH CORRESPONDING VOLUME LOSS I N THE RIGHT HEMITHORAX. 2. CHRONIC-APPEARING RESIDUAL SMALL RIGHT PLEURAL EFFUSION WITH SOME ASSOCIATED STRANDY SCARRING IN T HE RIGHT HEMITHORAX. EFFUSION HAS CONSIDERABLY DECREASED FROM 09/11/2018. 3. NO SUSPICIOUS PULMONARY NODULE OR MASS OR PROGRESSIVE LYMPHADENOPATHY. 4. EXTENSIVE THREE-VESSEL CORONARY VESSEL CALCIFICATIONS. 5. CHOLELITHIASIS.
== END | disposition home or self-care (01) ==
LOC: RADCTMAIN 12:04
PROVIDERS: ATTEND Family Medicine
DX: J90 Pleural effusion, not elsewhere classified (principal); Z90.2 Acquired absence of lung [part of]
CPT/HCPCS: 71250

== ENCOUNTER → 2019-05-01 | Outpatient (CLI) | payer MEDICARE, OTHER ==
[~2019-05-01] MED LIST changes: -DEXAMETHASONE SOD PHOSPHATE 10 MG/ML 1 ML VIAL IV ONE; -LACTATED RINGERS 1,000 ML IV SCH; -LIDOCAINE 1% 20 ML VIAL (10MG/ML) FOR IV START INTRADERMA PRN; -MIDAZOLAM (PF) 2 MG/2 ML VIAL IV PRN; -ONDANSETRON 4 MG/2 ML VIAL IVP ONE; +REGADENOSON 0.4 MG/5 ML SYRINGE IV ONE; -SCOPOLAMINE 1.5MG/72HR PATCH TRANSDERM ONE; -ceFAZolin IN SWFI 2 GM/20 ML SYRINGE IVP ONE
--- NOTE | 2019-05-01 16:19 | NM ---
EXAMINATION TYPE: NM stress lexiscan cardiolite DATE OF EXAM: 05/01/2019 COMPARISON: NONE HISTORY: PVCs, CHF TECHNIQUE: After the intravenous administration of 10.12 mCi Tc 99m Sestamibi - Cardiolite resting S PECT images acquired 45 minutes post injection. The patient received 0.4mg Lexiscan, 26.4 mCi Tc 99m Sestamibi - Stress images obtained [address] injection FINDINGS: There is a fixed defect along the cardiac apex and inferior wall. Reversible perfusion defects are no t evident. Gated wall motion is normal. Ejection fraction of 56% is normal. IMPRESSION: 1. Small fixed defect the cardiac apex greater than expected for cardiac thinning. 2. Normal ejection fraction of 56%
--- NOTE | 2019-05-01 19:23 | P.STRESS ---
- Stress Test Note Stress Test Results/Findings: Exam Performed: NM stress lexiscan cardiolite Exam Date: 05/01/19 Reason for Exam: CHF Height: 5 ft 2 in Weight: 84.368 kg Protocol: LEXISCAN Stage: N/A Duration of Exercise: 5 MINUTES Resting Heart Rate: 68 Resting Blood Pressure: 135/99 Maximum Achieved Heart Rate: 102 Maximum Achieved Blood Pressure: 135/99 85% PMHR: N/A 100% PMHR: N/A METS: N/A Technologist Comment: Stress Test Results/Findings: This is a 79-year-old female with history of ischemic heart disease and smoking and also COPD being evaluated for symptoms of shortness of breath and palpitations. Stress data: Baseline EKG showed sinus rhythm with normal [place] interval and QRS duration with occasional PVCs. Blood pressure at rest is 135/99 with pulse rate of 68. A standard dose of Lexiscan was infused EKGs taken during and after the infusion did not reveal any significant changes from the baseline. Final impression: #1. Negative Lexiscan stress test #2. Report on the nuclear images to be given by the radiologist.
--- NOTE | 2019-05-02 11:32 | EST ---
Stress Test Results/Findings: Exam Performed: NM stress lexiscan cardiolite Exam Date: 05/01/19 Reason for Exam: CHF Height: 5 ft 2 in Weight: 84.368 kg Protocol: LEXISCAN Stage: N/A Duration of Exercise: 5 MINUTES Resting Heart Rate: 68 Resting Blood Pressure: 135/99 Maximum Achieved Heart Rate: 102 Maximum Achieved Blood Pressure: 135/99 85% PMHR: N/A 100% PMHR: N/A METS: N/A Technologist Comment: Stress Test Results/Findings: This is a 79-year-old female with history of ischemic heart disease and smoking and also COPD being evaluated for symptoms of shortness of breath and palpitations. Stress data: Baseline EKG showed sinus rhythm with normal [place] interval and QRS duration with occasional PVCs. Blood pressure at rest is 135/99 with pulse rate of 68. A standard dose of Lexiscan was infused EKGs taken during and after the infusion did not reveal any significant changes from the baseline. Final impression: #1. Negative Lexiscan stress test #2. Report on the nuclear images to be given by the radiologist. MUNIR
== END | disposition home or self-care (01) ==
LOC: RADNMMAIN 08:03
PROVIDERS: ATTEND Family Medicine
DX: I50.9 Heart failure, unspecified (principal)
CPT/HCPCS: 93017; 78452; A9500; J2785

== ENCOUNTER → 2019-06-20 | Outpatient (CLI) | payer MEDICARE, OTHER ==
--- NOTE | 2019-06-21 08:52 | XR ---
EXAMINATION TYPE: XR foot complete LT DATE OF EXAM: 06/20/2019 CLINICAL HISTORY: Intense pain over fourth toe of the left foot. TECHNIQUE: Frontal, lateral, and oblique images of the left foot are obtained. COMPARISON: None FINDINGS: There is no acute fracture/dislocation evident in the left foot. The joint spaces in the left foot appear aligned. The overlying soft tissue appears unremarkable. Calcification of the dista l peroneus brevis tendon. Hallux valgus deformity is seen. Diffuse osseous demineralization. Mild deg enerative changes of the distal interphalangeal joints and first metatarsal phalangeal joint displaye d as opposing surface sclerosis and joint space narrowing with minimal bony proliferative change. IMPRESSION: 1. No acute fracture or dislocation in the left foot, particularly of the fourth digit. 2. Mild forefoot arthropathy, hallux valgus deformity, diffuse osseous demineralization, and calcific tendinosis of the peroneus brevis tendons.
== END | disposition home or self-care (01) ==
LOC: RADXRMAIN 15:33
PROVIDERS: ATTEND Family Medicine
DX: M20.12 Hallux valgus (acquired), left foot (principal); M19.072 Primary osteoarthritis, left ankle and foot; M67.874 Other specified disorders of tendon, left ankle and foot

== ENCOUNTER → 2020-01-15 | Outpatient (CLI) | payer MEDICARE, OTHER ==
--- NOTE | 2020-01-16 09:22 | CT ---
EXAMINATION TYPE: CT chest w con DATE OF EXAM: 01/15/2020 COMPARISON: 03/25/2019 HISTORY: COPD. History of breast cancer. CT DLP: 452.5 mGycm Automated exposure control for dose reduction was used. CONTRAST: CT scan of the chest is performed with IV Contrast, patient injected with 100 mL of Isovue M300. FINDINGS: LUNGS: Chronic right-sided volume loss unchanged from prior study. 3 mm nodular density right upper l obe image 26. Basilar parenchymal scarring. Mild hyperinflation left lung. No pulmonary mass identifi ed. No focal infiltrate. There is no pleural effusion or pneumothorax seen. The tracheobronchial jyoti e is patent. MEDIASTINUM: There are no greater than 1 cm hilar or mediastinal lymph nodes. No pericardial effusi on is seen. Thoracic aorta demonstrates atheromatous change is mild ectasia. Mild cardiomegaly. UPPER ABDOMEN: No significant abnormality appreciated. OTHER: No additional significant abnormality is seen. IMPRESSION: Stable appearance of the chest with the volume loss of the right lung. Stable 3 mm right upper lobe n odular density. No adenopathy.
== END | disposition home or self-care (01) ==
LOC: RADCTMAIN 17:07
PROVIDERS: ATTEND Family Medicine
DX: R91.1 Solitary pulmonary nodule (principal); J44.9 Chronic obstructive pulmonary disease, unspecified; Z88.0 Allergy status to penicillin
CPT/HCPCS: 82565; 84520; 71260; 36415; Q9967

== ENCOUNTER → 2021-01-05 | Outpatient (CLI) | payer MEDICARE, OTHER ==
[2021-01-05 17:20] LABS: African American GFR (CKD) >90 (>60 ml/min/1.73 sqM); Blood Urea Nitrogen 15 mg/dL (7-17); Non-African American GFR(CKD) 83 (>60 ml/min/1.73 sqM)
--- NOTE | 2021-01-06 16:15 | CT ---
EXAMINATION TYPE: CT chest abdomen wo/w con DATE OF EXAM: 01/05/2021 COMPARISON: CT chest 01/15/2020 HISTORY: SOB, Hx RT lung CA, gallbladder issues CT DLP: 2130.30 mGycm. Automated Exposure Control for Dose Reduction was Utilized. CONTRAST: CT scan of the thorax, abdomen and pelvis is performed without and with IV Contrast, patient injected with 100 mL of Isovue 300. FINDINGS: There are coronary artery calcifications present. LUNGS: There is volume loss in the right hemithorax with probable associated scarring and pleural thi ckening similar to prior exam, emphysematous changes are present within the lungs. There is been inte rval development of a soft tissue nodule measuring approximately 9 mm at the medial aspect of the lef t lower lobe axial image 32, nodular density also present on axial image #38 left lower lobe laterall y shows a stable appearance. MEDIASTINUM: There are no greater than 1 cm hilar or mediastinal lymph nodes. No pericardial effusi on is seen. OTHER: Abdominal wall hernia is [place] and contains fat, axial image #79. LIVER/GB: There are gallstones present within the gallbladder. Liver shows no mass PANCREAS: No significant abnormality is seen. SPLEEN: Subcentimeter low dense focus is stable. ADRENALS: No significant abnormality is seen. KIDNEYS: Low-attenuation at the lower pole of the left kidney with some atrophy may be due to vascula r insufficiency, atheromatous change and separate origin of the lower pole left renal artery is noted . BOWEL: No significant abnormality is seen. GENITAL ORGANS: No gross abnormality seen. LYMPH NODES: No greater than 1cm abdominal or pelvic lymph nodes are appreciated. OSSEOUS STRUCTURES: Degenerative disc changes are present visualized spine, probable disc herniation in the lumbosacral junction level, partially imaged. OTHER: Abdominal aorta is ectatic at 3.1 cm in the infrarenal location. IMPRESSION: Interval development of a subcentimeter nodule on the left lower lobe, metastatic disease is a consideration. Coronary artery disease. Cholelithiasis. Abdominal aortic ectasia or an abdomina l wall hernia. Degenerative disc disease as described. Atherosclerotic vascular disease affecting the lower pole the left kidney.
== END | disposition home or self-care (01) ==
LOC: RADCTMAIN 16:11
PROVIDERS: ATTEND Family Medicine
DX: I25.10 Atherosclerotic heart disease of native coronary artery without angina pectoris (principal); I77.811 Abdominal aortic ectasia; K43.9 Ventral hernia without obstruction or gangrene; K80.20 Calculus of gallbladder without cholecystitis without obstruction; Z85.118 Personal history of other malignant neoplasm of bronchus and lung
CPT/HCPCS: 82565; 84520; 71270; 74170; 36415; Q9967

== ENCOUNTER → 2021-02-05 | Outpatient (CLI) | payer MEDICARE, OTHER ==
--- NOTE | 2021-02-12 19:56 | PE ---
EXAMINATION TYPE: PET CT fusion skull to thigh DATE OF EXAM: 02/07/2021 CLINICAL HISTORY: 81-year-old female C34.32, R91.1, restaging right lung cancer. Diagnosed 3 years ag o status post surgery in both 2018 and 2019. TECHNIQUE: Following the intravenous administration of 11.15 mCi of F-18 FDG, whole body images are performed from the skull base to the midthigh. Images are reviewed on the computer in the coronal, axial, and sagittal planes. Reconstructed rotating images are created on independent workstation and reviewed on the computer. A localization and attenuation correction CT is performed in conjunction with the PET scan. Glucose level: 111 mg/dL Injection site: Right AC COMPARISON: 01/03/2021, 01/15/2020, 04/04/2019. FINDINGS: PET: Physiologic FDG uptake within the neck. A 9 mm medial left lower lobe pulmonary nodule is confirmed to be new and shows suspicious mild incre ased FDG uptake, max SUV 2.1. Otherwise, physiologic FDG uptake within the chest. Average liver SUV 3.1 with heterogeneous uptake likely normal variation. Moderate increased FDG uptake at the level of the anus probably physiologic, max SUV 4.0. This should be correlated with direct inspection. Additional focal borderline moderate uptake at the inferior cecum, max SUV 3.4 may be physiologic. Otherwise, normal FDG uptake within the abdomen and pelvis. ATTENUATION CORRECTION CT: Marked rightward nasal septal deviation and left-sided conchal bullosa. Because paranasal sinuses and mastoid air cells are clear. No cervical adenopathy. Retropharyngeal course of the common carotid ar teries. The heart is mildly enlarged without pericardial effusion. Extensive three-vessel coronary artery huber cifications are present and a marker for coronary artery disease. Moderate atherosclerotic arch calci fications with conventional arch vessel branching anatomy. Ectatic upper descending thoracic aorta at 3.2 cm and mid descending thoracic aorta at 3.1 cm. No thoracic lymph adenopathy by CT size criteria . Areas of strandy scarring or atelectasis bilaterally and mild emphysema. No consolidation or pleur al effusion. Gallstones are noted. Slightly atrophic lower pole of the left kidney unchanged. Fusiform ectasia inf rarenal abdominal aorta up to 2.7 cm. Moderate sized fatty umbilical hernia measuring 6.4 cm wide. 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 No dilated s mall bowel, free fluid, or free air. No mesenteric or retroperitoneal lymphadenopathy. Sigmoid divert iculosis without pericolonic inflammatory change. Bladder not distended. Pelvic phlebolith. Uterus surgically absent. Neither ovary visualized. No abno rmal fluid collection in the pelvis or pelvic lymphadenopathy. Bones: Mild degenerative change at the hips. Facet arthropathy lower lumbar spine. IMPRESSION: 1. A new 9 mm medial left lower lobe pulmonary nodule is confirmed and shows mild increased uptake. T his is suspicious and could represent a small metastatic nodule versus new, early primary site. Refer ral to pulmonary medicine to consider options for treatment or follow-up recommended. 2. Borderline moderate uptake at the inferior cecum without discrete CT abnormality here. Possible ph ysiologic uptake. However, given the focality, recommend colonoscopy for direct visualization if rout ine screening is not being performed. Alternatively, six-month follow-up contrast enhanced CT can exc lude the development of any enlarging mass here. 3. Additional moderate anal uptake is probably physiologic. Again, correlate with direct inspection. 4. 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
== END | disposition home or self-care (01) ==
LOC: RADPETMAIN 15:38
PROVIDERS: ATTEND Family Medicine
DX: C34.91 Malignant neoplasm of unspecified part of right bronchus or lung (principal); C34.92 Malignant neoplasm of unspecified part of left bronchus or lung; K42.9 Umbilical hernia without obstruction or gangrene; K57.30 Diverticulosis of large intestine without perforation or abscess without bleeding; K80.20 Calculus of gallbladder without cholecystitis without obstruction; I25.10 Atherosclerotic heart disease of native coronary artery without angina pectoris
CPT/HCPCS: 78815; A9552

== ENCOUNTER 2021-04-28 06:43 | Day surgery (SDC) | payer MEDICARE, OTHER ==
[2021-04-27 09:06] VITALS: BMI 36.6
[2021-04-28] MEDS ORDERED: LIDOCAINE 1% (10MG/ML) FOR IV START INTRADERMA PRN (07:28)
[2021-04-28] MEDS ORDERED: LACTATED RINGERS 1,000 ML IV SCH (07:28)
[2021-04-28 07:37] VITALS: TEMP 96.6
--- NOTE | 2021-04-28 07:55 | P.GSHP ---
History of Present Illness H&P Date: 04/28/21 CHIEF COMPLAINT: Colon screen HISTORY OF PRESENT ILLNESS: The patient is a 81-year-old female with lung cancer, colonic lesion, option dependency, congestive heart failure who presents with abnormal findings on computed tomography scan for a colonic neoplasm identify less than 3 months ago. She presents today for lower endoscopy assessment. PAST MEDICAL HISTORY: Please see list. PAST SURGICAL HISTORY: Please see list. MEDICATIONS: Please see list. ALLERGIES: Please see list. SOCIAL HISTORY: No illicit drug use FAMILY HISTORY: No reports of Crohn disease or ulcerative colitis. REVIEW OF ORGAN SYSTEMS: CONSTITUTIONAL: Denies any fever or chills. Denies recent weight loss or weight gain. HEENT: Denies any trouble with vision, hearing or nosebleeds. No difficulty swallowing. LYMPHATIC: The patient denies any lumps and bumps around the neck. ENDOCRINE: Denies any thyroid disorders. Denies any blood sugar glucose intolerance. RESPIRATORY: Has lung cancer status post pneumonectomy, oxygen dependent CARDIOVASCULAR: Denies any chest pain, palpitations, or recent heart attacks. GASTROINTESTINAL: Has congestive heart failure GENITOURINARY: Denies any blood in urine or increased urinary frequency. MUSCULOSKELETAL: Has back pain, stiffness, joint arthritis. Has anxiety disorder. NEUROLOGIC: Denies any numbness or tingling along the distal extremities. No seizure disorders or headaches. PSYCHIATRIC: Denies depression or suidical ideation. HEMATOLOGIC: Denies any abnormal bleeding or bruising. BREASTS: Denies any breast lumps, pain or nipple discharge. PHYSICAL EXAM: VITAL SIGNS: Reviewed GENERAL: Well-developed pleasant in no acute distress. HEENT: No scleral icterus. Extraocular movements grossly intact. Moist buccal mucosa. NECK: Supple without lymphadenopathy. CHEST: Unlabored respirations. Equal bilateral excursions. CARDIOVASCULAR: Regular rate and rhythm. Distal 2+ pulses. ABDOMEN: Soft, nontender, nondistended. MUSCULOSKELETAL: No clubbing, cyanosis, or edema. PSYCH: Appropriate inside. Alert and oriented to person place and time. SKIN: Well perfused. Good skin turgor. ASSESSMENT: 1. Abnormal computed tomography scan for colonic neoplasm 2. 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 History of lung cancer 4. Congestive heart failure PLAN: 1. Recommend proceeding with a lower endoscopy. 2. Patient is high risk due to pre-existing congestive heart failure including oxygen-dependent chronic obstructive lung disease Past Medical History Past Medical History: Asthma, Coronary Artery Disease (CAD), Cancer, COPD, Hyperlipidemia, Hypertension, Osteoarthritis (OA), Pneumonia, Respiratory Disorder Additional Past Medical History / Comment(s): hx Right upper lobe adenocarcinoma, frequent R pleural effusions with several thoracentesis done, home O2 2 liters n/c continuoulsy, L shoulder "missing a bone d/t wear", nain ankle swelling, "left side of heart weak", abdominal hernia, "small cancer area in left lung", hx bowel obstruction, "problems with gallbladder" History of Any Multi-Drug Resistant Organisms: None Reported Past Surgical History: Appendectomy, Bowel Resection, Ear Surgery, Heart Catheterization With Stent, Hernia Repair, Hysterectomy, Tonsillectomy Additional Past Surgical History / Comment(s): Colon/bowel surgery done in her 30's-21 inches removed, bilateral cataracts removed, bilateral laser eye surgery, hemorroidectomy, hiatal hernia, robotic rt upper lobectomy w/mediastinal lymph node dissection, 1 cardiac stent Past Anesthesia/Blood Transfusion Reactions: No Reported Reaction Additional Past Anesthesia/Blood Transfusion Reaction / Comment(s): . Date of Last Stent Placement:: 01/01/18 Smoking Status: Former smoker - Past Family History Sister(s) Family Medical History: Coronary Artery Disease (CAD) Father Family Medical History: CVA/TIA, Myocardial Infarction (DC) Mother Family Medical History: Cancer Additional Family Medical History / Comment(s): bowel cancer Medications and Allergies Home Medications Medication Instructions Recorded Confirmed Type ALPRAZolam [Xanax] 0.5 mg PO HS 03/19/14 04/28/21 History Cetirizine HCl [Zyrtec] 10 mg PO DAILY 03/19/14 04/28/21 History Montelukast [Singulair] 10 mg PO HS 09/15/17 04/28/21 History Albuterol Inhaler (Mhu) [Ventolin 1 puff INHALATION RT-BID PRN 10/30/17 04/28/21 History Hfa Inhaler (Mhu)] carvediloL [Coreg] 3.125 mg PO BID 10/30/17 04/28/21 History Clopidogrel [Plavix] 75 mg PO DAILY #90 tab 01/01/18 04/28/21 Rx HYDROcodone/APAP 10-325MG [[place] 1 tab PO TID PRN 01/23/18 04/28/21 History 10-325] Budesonide [Pulmicort] 0.5 mg INHALATION RT-BID PRN 03/26/18 04/28/21 History Ipratropium Nebulized [Atrovent 0.5 mg INHALATION RT-TID 03/26/18 04/28/21 History Nebulized] Potassium Chloride [Klor-Con 10] 10 meq PO BID 03/26/18 04/28/21 History Aspirin [Adult Low Dose Aspirin EC] 81 mg PO HS 04/27/21 04/28/21 History Cholecalciferol [Vitamin D3 (25 25 mcg PO DAILY 04/27/21 04/28/21 History Mcg = 1000 Iu)] Famotidine [Pepcid] 40 mg PO BID 04/27/21 04/28/21 History Furosemide [Lasix] 40 mg PO DAILY 04/27/21 04/28/21 History Rosuvastatin [Crestor] 20 mg PO DAILY 04/27/21 04/28/21 History Allergies Allergy/AdvReac Type Severity Reaction Status Date / Time Penicillins Allergy Rash/Hives Verified 04/28/21 07:29 Surgical - Exam Vital Signs Temp Pulse Resp BP Pulse Ox 96.6 F L 85 16 182/88 98 04/28/21 07:36 04/28/21 07:36 04/28/21 07:36 04/28/21 07:36 04/28/21 07:36
[2021-04-28] MEDS ORDERED: PROPOFOL 10 MG/ML 20 ML VIAL IV ONE (08:00)
[2021-04-28 08:54] VITALS: BP 166/70; PULSE 83; RESP 16
--- NOTE | 2021-04-28 09:30 | P.PCN ---
Date of Procedure: 04/28/21 Description of Procedure: PREOPERATIVE DIAGNOSIS: Personal history of colon polyps Family history malignant colon polyps Abnormal CT scan for colonic neoplasm POSTOPERATIVE DIAGNOSIS: Tubular adenoma cecum Tubular adenoma ascending colon Sigmoid diverticulosis Internal hemorrhoids, grade 2 Anal stenosis OPERATION: Colonoscopy to the ileocecal valve and appendiceal orifice, cecum Colonoscopy with hot snare polypectomy SURGEON: Melissa Abraham MD. ANESTHESIA: MAC. INDICATIONS: The patient is an 81-year-old female who presents family history of malignant colon polyps and personal history of colon polyps. Last colonoscopy 5 years. Benefits and risks were described and informed consent was obtained. DESCRIPTION OF PROCEDURE: The patient had undergone Sutab prep. The patient had been brought into the operating room and laid in the left lateral decubitus position. After adequate intravenous sedation, the rectum was examined with 2% lidocaine jelly. External hemorrhoids were encountered. The rectal tone was tight with stenosis of the anus barely allowing entry of the index finger. No lesions were palpated in the rectal vault. An Olympus colonoscope was advanced until the cecum, ileocecal valve and appendiceal orifice were clearly viewed. The prep was excellent. Sigmoid diverticulosis was encountered. Colonic polyps were found and removed. No evidence of focal colitis was found. Retroflexion of the scope demonstrated grade 2 internal hemorrhoids without active bleeding or inflammation. The colon was desufflated. The patient had tolerated the procedure well. Withdrawal time was over 6 minutes. FINDINGS: Aronchick preparation quality scale 1 (1-5) Internal hemorrhoids, grade 2 Anal stenosis External hemorrhoids, grade 2. No arteriovenous malformations. Sigmoid diverticulosis Removal of 2 polyps: - Snare polypectomy 30 cm from the anal verge, 5 mm tubulovillous adenoma polyp, descending colon - Snare polypectomy at cecum, 8 mm flat villous adenoma polyp. No focal colitis. RECOMMENDATIONS: Repeat colonoscopy in 3 years, 2023 Plan - Discharge Summary New Discharge Prescriptions: Continue Cetirizine HCl [Zyrtec] 10 mg PO DAILY ALPRAZolam [Xanax] 0.5 mg PO HS Montelukast [Singulair] 10 mg PO HS carvediloL [Coreg] 3.125 mg PO BID Albuterol Inhaler (Mhu) [Ventolin Hfa Inhaler (Mhu)] 1 puff INHALATION RT-BID PRN PRN Reason: Shortness Of Breath Clopidogrel [Plavix] 75 mg PO DAILY #90 tab HYDROcodone/APAP 10-325MG [[place] 10-325] 1 tab PO TID PRN PRN Reason: Pain Ipratropium Nebulized [Atrovent Nebulized 0.2 MG/ML] 0.5 mg INHALATION RT-TID Budesonide [Pulmicort] 0.5 mg INHALATION RT-BID PRN PRN Reason: sob Potassium Chloride [Klor-Con 10 ER] 10 meq PO BID Rosuvastatin [Crestor] 20 mg PO DAILY Aspirin [Adult Low Dose Aspirin EC] 81 mg PO HS Cholecalciferol [Vitamin D3 (25 Mcg = 1000 Iu)] 25 mcg PO DAILY Famotidine [Pepcid] 40 mg PO BID Furosemide [Lasix] 40 mg PO DAILY Discharge Medication List ALPRAZolam [Xanax] 0.5 mg PO HS 03/19/14 [History] Cetirizine HCl [Zyrtec] 10 mg PO DAILY 03/19/14 [History] Montelukast [Singulair] 10 mg PO HS 09/15/17 [History] Albuterol Inhaler (Mhu) [Ventolin Hfa Inhaler (Mhu)] 1 puff INHALATION RT-BID PRN 10/30/17 [History] carvediloL [Coreg] 3.125 mg PO BID 10/30/17 [History] Clopidogrel [Plavix] 75 mg PO DAILY #90 tab 01/01/18 [Rx] HYDROcodone/APAP 10-325MG [[place] 10-325] 1 tab PO TID PRN 01/23/18 [History] Budesonide [Pulmicort] 0.5 mg INHALATION RT-BID PRN 03/26/18 [History] Ipratropium Nebulized [Atrovent Nebulized 0.2 MG/ML] 0.5 mg INHALATION RT-TID 03/26/18 [History] Potassium Chloride [Klor-Con 10 ER] 10 meq PO BID 03/26/18 [History] Aspirin [Adult Low Dose Aspirin EC] 81 mg PO HS 04/27/21 [History] Cholecalciferol [Vitamin D3 (25 Mcg = 1000 Iu)] 25 mcg PO DAILY 04/27/21 [History] Famotidine [Pepcid] 40 mg PO BID 04/27/21 [History] Furosemide [Lasix] 40 mg PO DAILY 04/27/21 [History] Rosuvastatin [Crestor] 20 mg PO DAILY 04/27/21 [History] Follow up Appointment(s)/Referral(s): Melissa Abraham MD [STAFF PHYSICIAN] - 05/11/21 Patient Instructions/Handouts: *Surgery [facility] - (Anesthesia) Endoscopy Discharge Instructions, Diverticulosis (DC), Colorectal Polyps (GEN), Diverticulosis Diet (GEN), Colonoscopy (DC) Activity/Diet/Wound Care/Special Instructions: Repeat colonoscopy 3 years, 2023. START PLAVIX MONDAY, JUN 01 Discharge Disposition: HOME SELF-CARE
== END 2021-04-28 09:34 | disposition home or self-care (01) ==
LOC: ORWHC2ENDO 06:43
PROVIDERS: ATTEND Surgery Plastic and Reconstructive Surgery
DX: D12.0 Benign neoplasm of cecum (principal); D12.5 Benign neoplasm of sigmoid colon; K64.1 Second degree hemorrhoids; K62.4 Stenosis of anus and rectum; K57.30 Diverticulosis of large intestine without perforation or abscess without bleeding; J45.909 Unspecified asthma, uncomplicated; I25.10 Atherosclerotic heart disease of native coronary artery without angina pectoris; J44.9 Chronic obstructive pulmonary disease, unspecified; I11.0 Hypertensive heart disease with heart failure; I50.9 Heart failure, unspecified; E78.5 Hyperlipidemia, unspecified; M19.90 Unspecified osteoarthritis, unspecified site; Z87.01 Personal history of pneumonia (recurrent); Z99.81 Dependence on supplemental oxygen; Z87.19 Personal history of other diseases of the digestive system; Z90.49 Acquired absence of other specified parts of digestive tract; Z86.010 Personal history of colon polyps; Z98.42 Cataract extraction status, left eye; Z98.41 Cataract extraction status, right eye; Z90.2 Acquired absence of lung [part of]; Z95.5 Presence of coronary angioplasty implant and graft; Z98.890 Other specified postprocedural states; Z82.49 Family history of ischemic heart disease and other diseases of the circulatory system; Z82.3 Family history of stroke; Z80.0 Family history of malignant neoplasm of digestive organs; Z79.02 Long term (current) use of antithrombotics/antiplatelets; Z79.82 Long term (current) use of aspirin; Z79.899 Other long term (current) drug therapy; Z88.0 Allergy status to penicillin
CPT/HCPCS: 88305; 45385; J2704

== ENCOUNTER 2022-01-11 21:09 | Emergency (ER) | payer MEDICARE, OTHER ==
[2022-01-11 21:39] VITALS: BP 152/88; PULSE 89; RESP 18; TEMP 97.9
[2022-01-11] MEDS ORDERED: SODIUM CHLORIDE 0.9% 1,000 ML IV STA (21:55)
[2022-01-11 22:38] LABS: Basophils % (A) 0 %; Eosinophils # (A) 0.3 k/uL (0-0.7); Eosinophils % (A) 5 %; HCT 32.7 % (34.0-46.0); HGB 10.8 gm/dL (11.4-16.0); Hypochromasia Slight; Lymphocytes # (A) 1.2 k/uL (1.0-4.8); Lymphocytes % (A) 19 %; MCH 29.6 pg (25.0-35.0); MCHC 33.2 g/dL (31.0-37.0); Mean Platelet Volume 8.3; Monocytes # (A) 0.3 k/uL (0-1.0); Monocytes % (A) 5 %; Neutrophils # (A) 4.2 k/uL (1.3-7.7); Neutrophils % (A) 68 %; Platelet Count 206 k/uL (150-450); RBC 3.67 m/uL (3.80-5.40); RDW 13.8 % (11.5-15.5); WBC 6.1 k/uL (3.8-10.6)
[2022-01-11 22:44] LABS: Partial Thromboplastin Time 23.5 sec (22.0-30.0); Prothrombin Time 10.7 sec (9.0-12.0)
[2022-01-11 22:49] LABS: Albumin 4.4 g/dL (3.5-5.0); Calcium 9.2 mg/dL (8.4-10.2); Magnesium 2.2 mg/dL (1.6-2.3); Potassium 4.5 mmol/L (3.5-5.1); Total Bilirubin 0.7 mg/dL (0.2-1.3); Total Protein 7.1 g/dL (6.3-8.2)
--- NOTE | 2022-01-11 23:22 | ED ---
General Adult HPI - General Chief complaint: GI Bleed Stated complaint: GI Bleed Time Seen by Provider: 01/11/22 21:42 Source: patient, family Mode of arrival: wheelchair Limitations: no limitations - History of Present Illness Initial comments: Patient is a 81-year-old female presenting with chief complaint of blood in the stool. Patient states that today she began noticing bright red blood from the rectum. She states that it has been present on the tissue and in the toilet. Patient denies any history of hematochezia. She denies any abdominal pain. Patient had a colonoscopy performed by Dr. Abraham about 6 months ago which showed no acute process. Denies chest pain, shortness of breath, fever, chills, nausea, vomiting, dysuria, hematuria, urgency, frequency, diarrhea, dark tarry stool. - Related Data Home Medications Medication Instructions Recorded Confirmed ALPRAZolam [Xanax] 0.5 mg PO HS 03/19/14 04/28/21 Cetirizine HCl [Zyrtec] 10 mg PO DAILY 03/19/14 04/28/21 Montelukast [Singulair] 10 mg PO HS 09/15/17 04/28/21 Albuterol Inhaler [Ventolin Hfa 1 puff INHALATION RT-BID PRN 10/30/17 04/28/21 Inhaler] carvediloL [Coreg] 3.125 mg PO BID 10/30/17 04/28/21 HYDROcodone/APAP 10-325MG [[place]hel 1 tab PO TID PRN 01/23/18 04/28/21 10-325] Budesonide [Pulmicort] 0.5 mg INHALATION RT-BID PRN 03/26/18 04/28/21 Ipratropium Nebulized [Atrovent 0.5 mg INHALATION RT-TID 03/26/18 04/28/21 Nebulized 0.2 MG/ML] Potassium Chloride [Klor-Con 10 ER] 10 meq PO BID 03/26/18 04/28/21 Aspirin [Adult Low Dose Aspirin EC] 81 mg PO HS 04/27/21 04/28/21 Cholecalciferol [Vitamin D3 (25 25 mcg PO DAILY 04/27/21 04/28/21 Mcg = 1000 Iu)] Famotidine [Pepcid] 40 mg PO BID 04/27/21 04/28/21 Furosemide [Lasix] 40 mg PO DAILY 04/27/21 04/28/21 Rosuvastatin [Crestor] 20 mg PO DAILY 04/27/21 04/28/21 Previous Rx's Medication Instructions Recorded Clopidogrel [Plavix] 75 mg PO DAILY #90 tab 01/01/18 Allergies Allergy/AdvReac Type Severity Reaction Status Date / Time Penicillins Allergy Rash/Hives Verified 01/11/22 21:40 Review of Systems ROS Statement: Those systems with pertinent positive or pertinent negative responses have been documented in the HPI. ROS Other: All systems not noted in ROS Statement are negative. 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", nain ankle swelling, "left side of heart weak", abdominal hernia, "small cancer area in left lung", hx bowel obstruction, "problems with gallbladder" History of Any Multi-Drug Resistant Organisms: None Reported Past Surgical History: Appendectomy, Bowel Resection, Ear Surgery, Heart Catheterization With Stent, Hernia Repair, Hysterectomy, Tonsillectomy Additional Past Surgical History / Comment(s): Colon/bowel surgery done in her 30's-21 inches removed, bilateral cataracts removed, bilateral laser eye surgery, hemorroidectomy, hiatal hernia, robotic rt upper lobectomy w/ mediastinal lymph node dissection, 1 cardiac stent Past Anesthesia/Blood Transfusion Reactions: No Reported Reaction Additional Past Anesthesia/Blood Transfusion Reaction / Comment(s): . Date of Last Stent Placement:: 01/01/18 Past Psychological History: No Psychological Hx Reported Smoking Status: Former smoker Past Alcohol Use History: None Reported Past Drug Use History: None Reported - Past Family History Sister(s) Family Medical History: Coronary Artery Disease (CAD) Father Family Medical History: CVA/TIA, Myocardial Infarction ([place]) Mother Family Medical History: Cancer Additional Family Medical History / Comment(s): bowel cancer General Exam Limitations: no limitations General appearance: alert, in no apparent distress Head exam: Present: atraumatic, normocephalic, normal inspection Eye exam: Present: normal appearance, EOMI. Absent: scleral icterus, periorbital swelling Neck exam: Present: normal inspection Respiratory exam: Present: normal lung sounds bilaterally. Absent: respiratory distress, wheezes, rales, rhonchi, stridor Cardiovascular Exam: Present: regular rate, normal rhythm, normal heart sounds. Absent: systolic murmur, diastolic murmur, rubs, gallop, clicks GI/Abdominal exam: Present: soft. Absent: distended, tenderness, guarding, rebound, rigid Rectal exam: Present: hemorrhoids Neurological exam: Present: alert, oriented X3, CN II-XII intact Psychiatric exam: Present: normal affect, normal mood Skin exam: Present: warm, dry, intact, normal color. Absent: rash Course Vital Signs 01/11/22 01/11/22 21:37 22:25 Temperature 97.9 F Pulse Rate 89 Respiratory 18 Rate Blood Pressure 152/88 O2 Sat by Pulse 99 98 Oximetry Medical Decision Making - Medical Decision Making Patient is a 81-year-old female presenting with chief complaint of bright red blood per rectum. Patient states symptoms started today. She noticed bright red blood with 3 bowel movements today. She denies any history of hematochezia or melena. She had a colonoscopy performed approximately 6 months ago which showed no abnormalities. On exam, no abdominal pain palpation, abdomen is soft, nondistended, nontender. Rectal exam shows several hemorrhoids. No leukocytosis. Hemoglobin of 10.8. Creatinine 1.08 and BUN of 26. Bleeding is likely due to external hemorrhoids seen on exam. Patient appears stable for discharge with outpatient follow-up at this time. Follow-up with PCP in one to 2 days. Report back to ER with any new or worsening symptoms. Discussed return parameters and answered all questions. Patient conveyed verbal understanding and agreed to the plan. - Lab Data Result diagrams: 01/11/22 22:20 01/11/22 22:00 Lab Results 01/11/22 01/11/22 01/11/22 Range/Units 22:00 22:00 22:00 WBC (3.8-10.6) k/uL RBC (3.80-5.40) m/uL Hgb (11.4-16.0) gm/dL Hct (34.0-46.0) % MCV (80.0-100.0) fL MCH (25.0-35.0) pg MCHC (31.0-37.0) g/dL RDW (11.5-15.5) % Plt Count (150-450) k/uL MPV Neutrophils % % Lymphocytes % % Monocytes % % Eosinophils % % Basophils % % Neutrophils # (1.3-7.7) k/uL Lymphocytes # (1.0-4.8) k/uL Monocytes # (0-1.0) k/uL Eosinophils # (0-0.7) k/uL Basophils # (0-0.2) k/uL Hypochromasia PT 10.7 (9.0-12.0) sec INR 1.0 (<1.2) APTT 23.5 (22.0-30.0) sec Sodium 137 (137-145) mmol/L Potassium 4.5 (3.5-5.1) mmol/L Chloride 99 (98-107) mmol/L Carbon Dioxide 31 H (22-30) mmol/L Anion Gap 7 mmol/L BUN 26 H (7-17) mg/dL Creatinine 1.08 H (0.52-1.04) mg/dL Est GFR (CKD-EPI)AfAm 57 (>60 ml/min/1.73 sqM) Est GFR (CKD-EPI)NonAf 49 (>60 ml/min/1.73 sqM) Glucose 122 H (74-99) mg/dL Plasma Lactic Acid Zacarias 1.0 (0.7-2.0) mmol/L Calcium 9.2 (8.4-10.2) mg/dL Magnesium 2.2 (1.6-2.3) mg/dL Total Bilirubin 0.7 (0.2-1.3) mg/dL AST 21 (14-36) U/L ALT 13 (4-34) U/L Alkaline Phosphatase 89 (38-126) U/L Total Protein 7.1 (6.3-8.2) g/dL Albumin 4.4 (3.5-5.0) g/dL Lipase 17 L (23-300) U/L Blood Type Blood Type Recheck Bld Type Recheck Status Antibody Screen Spec Expiration Date 01/11/22 01/11/22 Range/Units 22:17 22:20 WBC 6.1 (3.8-10.6) k/uL RBC 3.67 L (3.80-5.40) m/uL Hgb 10.8 L (11.4-16.0) gm/dL Hct 32.7 L (34.0-46.0) % MCV 89.0 (80.0-100.0) fL MCH 29.6 (25.0-35.0) pg MCHC 33.2 (31.0-37.0) g/dL RDW 13.8 (11.5-15.5) % Plt Count 206 (150-450) k/uL MPV 8.3 Neutrophils % 68 % Lymphocytes % 19 % Monocytes % 5 % Eosinophils % 5 % Basophils % 0 % Neutrophils # 4.2 (1.3-7.7) k/uL Lymphocytes # 1.2 (1.0-4.8) k/uL Monocytes # 0.3 (0-1.0) k/uL Eosinophils # 0.3 (0-0.7) k/uL Basophils # 0.0 (0-0.2) k/uL Hypochromasia Slight PT (9.0-12.0) sec INR (<1.2) APTT (22.0-30.0) sec Sodium (137-145) mmol/L Potassium (3.5-5.1) mmol/L Chloride (98-107) mmol/L Carbon Dioxide (22-30) mmol/L Anion Gap mmol/L BUN (7-17) mg/dL Creatinine (0.52-1.04) mg/dL Est GFR (CKD-EPI)AfAm (>60 ml/min/1.73 sqM) Est GFR (CKD-EPI)NonAf (>60 ml/min/1.73 sqM) Glucose (74-99) mg/dL Plasma Lactic Acid Zacarias (0.7-2.0) mmol/L Calcium (8.4-10.2) mg/dL Magnesium (1.6-2.3) mg/dL Total Bilirubin (0.2-1.3) mg/dL AST (14-36) U/L ALT (4-34) U/L Alkaline Phosphatase (38-126) U/L Total Protein (6.3-8.2) g/dL Albumin (3.5-5.0) g/dL Lipase (23-300) U/L Blood Type A Positive Blood Type Recheck A Pos Bld Type Recheck Status No Antibody Screen NEGATIVE Spec Expiration Date 01/14/20222316 Disposition Clinical Impression: Hemorrhoids Disposition: HOME SELF-CARE Condition: Good Instructions (If sedation given, give patient instructions): Hemorrhoids (ED) Additional Instructions: Follow-up with PCP in one to 2 days. Report back to ER with any new or worsening symptoms. Is patient prescribed a controlled substance at d/c from ED?: No Referrals: Billy Saul MD [Primary Care Provider] - 1-2 days Time of Disposition: 23:51
== END 2022-01-12 00:02 | disposition home or self-care (01) ==
LOC: EC 21:09
DX: K64.9 Unspecified hemorrhoids (principal); J45.909 Unspecified asthma, uncomplicated; E78.5 Hyperlipidemia, unspecified; I10 Essential (primary) hypertension; Z87.891 Personal history of nicotine dependence; Z88.0 Allergy status to penicillin
CPT/HCPCS: 36415; 80053; 83605; 83690; 83735; 85025; 85610; 85730; 86850; 86900; 86901; 96360; 99285

== ENCOUNTER → 2022-01-21 | Outpatient (CLI) | payer MEDICARE, OTHER ==
--- NOTE | 2022-01-24 06:52 | PE ---
EXAMINATION TYPE: PET CT fusion skull to thigh DATE OF EXAM: 01/21/2022 COMPARISON: Prior PET/CT February 05, 2021 and older studies back through 2018. Chest CT December 01, [address]. HISTORY: Solitary pulmonary nodule, abnormal CT. TECHNIQUE: Following the intravenous administration of 13.17 mCi of F-18 FDG, whole body images are performed from the skull base to the midthigh. Images are reviewed on the computer in the coronal, a xial, and sagittal planes. Reconstructed rotating images are created on independent workstation and reviewed on the computer. A localization and attenuation correction CT is performed in conjunction with the PET scan. Blood glucose level equals 102 SCAN: Initial Scan FINDINGS: SKULL BASE AND NECK: No areas of abnormal hypermetabolic uptake. CHEST, MEDIASTINUM, AND HILAR REGION: There is background mild to moderate underlying emphysematous c hange redemonstrated. Posttreatment changes to the right lung with right-sided volume loss is redemon strated. Persistent peripheral medial 1.2 x 0.8 cm left lung nodule axial image 99. Mild hypermetabol ic uptake, max SUV is 3.18. Stable 6 mm left lower lobe nodule axial image 107 without hypermetabolic uptake. No additional areas of abnormal hypermetabolic uptake. ABDOMEN AND PELVIS: No adrenal masses. Mild diffuse uptake in liver are less prominent than prior. No rmal excretion. OSSEOUS STRUCTURES: No areas of abnormal hypermetabolic uptake. OTHER CT: Cardiomegaly with coronary artery calcification is redemonstrated. Dependent low density ga llstones in gallbladder. Large wide neck fat-containing ventral wall hernia redemonstrated. Persisten t common iliac artery aneurysms greatest on the left measuring 2.8 cm in size axial image 186. Uterus is surgically absent. Scattered bilateral pelvic phleboliths. Cortical thinning and volume loss lowe r pole left kidney redemonstrated. IMPRESSION: Persistent small 1.2 x 0.8 cm left lung nodule with mild hypermetabolic uptake, neoplasm cannot be excluded. No distal metastatic disease is evident.
== END | disposition home or self-care (01) ==
LOC: RADPETMAIN 14:18
PROVIDERS: ATTEND Internal Medicine Sleep Medicine
DX: R91.1 Solitary pulmonary nodule (principal)
CPT/HCPCS: 78815; A9552

== ENCOUNTER → 2022-02-16 | Outpatient (CLI) | payer MEDICARE, OTHER ==
[2022-02-16 16:01] LABS: Prothrombin Time 10.8 sec (9.0-12.0)
[2022-02-16 23:18] LABS: Basophils # (A) 0.03 X 10*3/uL (0.00-0.10); Basophils % (A) 0.6 %; Eosinophils % (A) 6.2 %; HCT 34.8 % (37.2-46.3); HGB 10.1 g/dL (12.0-15.0); Immature Grans, Automated 0.2 %; Lymphocytes # (A) 1.28 X 10*3/uL (0.90-5.00); Lymphocytes % (A) 26.6 %; MCH 26.8 pg (27.0-32.0); MCV 92.3 fL (80.0-97.0); Mean Platelet Volume 10.6 fL (9.5-12.2); Monocytes % (A) 8.3 %; NRBC Per 100 WBC 0 /100 WBCS (0.0-0.0); Neutrophils % (A) 58.1 %; Platelet Count 181 X 10*3/uL (140-440); RBC 3.77 X 10*6/uL (4.10-5.20); WBC 4.82 X 10*3/uL (4.50-10.00)
[2022-02-16 23:19] LABS: African American GFR (CKD) 80.7 (60.0-200.0); Blood Urea Nitrogen 13.3 mg/dL (9.0-27.0); Non-African American GFR(CKD) 69.6 (60.0-200.0)
== END | disposition home or self-care (01) ==
LOC: LABPAT 14:05
PROVIDERS: ATTEND Thoracic Surgery (Cardiothoracic Vascular Surgery)
DX: Z01.818 Encounter for other preprocedural examination (principal); R94.31 Abnormal electrocardiogram [ECG] [EKG]; R91.8 Other nonspecific abnormal finding of lung field
CPT/HCPCS: 82565; 82947; 84520; 85025; 85610; 85730; 93005

== ENCOUNTER 2022-02-24 05:43 | Inpatient (IN) | payer MEDICARE, OTHER ==
[2022-02-23 14:24] VITALS: BMI 36.0
[2022-02-24] MEDS ORDERED: LACTATED RINGERS 1,000 ML IV SCH (05:47)
[2022-02-24] MEDS ORDERED: LIDOCAINE 1% (10MG/ML) FOR IV START INTRADERMA PRN (05:47)
[2022-02-24] MEDS ORDERED: DEXAMETHASONE SOD PHOSPHATE 4 MG/ML 1 ML VIAL IV ONE (05:47)
[2022-02-24] MEDS ORDERED: ONDANSETRON 4 MG/2 ML VIAL IVP PRN ×2 (07:00→13:05)
[2022-02-24] MEDS ORDERED: HYDROmorphone 0.5 MG/0.5 ML SYRINGE IVP PRN (07:00)
[2022-02-24] MEDS ORDERED: MIDAZOLAM 2 MG/2 ML VIAL IVP ONE (07:22)
[2022-02-24] MEDS ORDERED: HYDROmorphone (PF) 1 MG/ML ONE (07:37)
[2022-02-24] MEDS ORDERED: LIDOCAINE 2% INJ 20 MG/ML (2 ML VIAL) ONE (07:37)
[2022-02-24] MEDS ORDERED: fentaNYL (PF) 50 MCG/ML 2 ML AMP ONE (07:37)
[2022-02-24] MEDS ORDERED: NEOSTIGMINE 1 MG/ML 10 ML VIAL ONE (07:37)
[2022-02-24] MEDS ORDERED: PROPOFOL 10 MG/ML 20 ML VIAL IV ONE (07:37)
[2022-02-24] MEDS ORDERED: SUCCINYLCHOLINE CHLORIDE 200 MG/10 ML VIAL IV ONE (07:37)
[2022-02-24] MEDS ORDERED: hydrALAZINE HCL 20 MG/ML 1 ML VIAL ONE (07:37)
[2022-02-24] MEDS ORDERED: MIDAZOLAM 2 MG/2 ML VIAL ONE (07:37)
[2022-02-24] MEDS ORDERED: LABETALOL 5 MG/ML VIAL MDV ONE (07:37)
[2022-02-24] MEDS ORDERED: ROCURONIUM 10 MG/ML (5 ML VIAL) IV ONE (07:37)
[2022-02-24] MEDS ORDERED: GLYCOPYRROLATE 0.2 MG/ML 2 ML VIAL ONE (07:37)
[2022-02-24] MEDS ORDERED: ROPIVACAINE 5 MG/ML 30 ML VIAL ONE (07:37)
[2022-02-24] MEDS ORDERED: BUPIVACAINE (PF) 0.5% 30 ML VIAL SQ ONE ×2 (07:41)
--- NOTE | 2022-02-24 10:53 | XR ---
EXAMINATION TYPE: XR chest 1V portable DATE OF EXAM: 02/24/2022 Comparison: 11/08/2018 Clinical History: 82-year-old female chest tube Findings: Apically directed left-sided chest tube is present. Small 1.3 cm left apical pneumothorax. Some subcu taneous emphysema lateral lower left chest wall. Previous right-sided pleural catheter from 2019 no l onger seen. Rightward patient rotation. Some similar volume loss in the right hemithorax. Heart remai ns moderately enlarged. Patchy bibasilar opacities are demonstrated along with hyperinflation. Impression: 1. Left-sided chest tube with a small 1.3 cm left apical pneumothorax. 2. Moderate cardiomegaly and COPD. 3. Patchy bibasilar areas of atelectasis or infiltrates.
--- NOTE | 2022-02-24 10:54 | P.ANPRN ---
Procedure Note - Anesthesia - Nerve Block Performed Left Erector Spinae Single Time Out Performed: Yes (721) Date of Procedure: 02/24/22 Procedure Start Time: : Procedure Stop Time: : Location of Patient: PreOp Indication: Acute Post-Operative Pain, Requested by Surgeon Specifically requested for management of pain by DrMatias: Jabari Mix Sedation Type: Sedate with meaningful contact maintained Preparation: Sterile Prep Position: Sitting Catheter: None Needle Types: Pajunk Needle Gauge: 21 Ultrasound used to visualize needle placement: Yes Ultrasound used to observe medication spread: Yes Injectate: 0.5% Ropivacaine (see comment for volume) (30cc) Blood Aspirated: No Pain Paresthesia on Injection Noted: No Resistance on Injection: Normal Image Stored and Saved: Yes Events: Uneventful and Well Tolerated
[2022-02-24] MEDS ORDERED: BUDESONIDE 0.5 MG/2 ML NEBU INHALATION PRN (11:03)
[2022-02-24] MEDS ORDERED: ALBUTEROL NEBULIZED 2.5 MG/3 ML INHALATION PRN (11:03)
[2022-02-24 12:41] LABS: Glucose,Whole Blood 223 mg/dL (70-110)
[2022-02-24] MEDS ORDERED: DEXTROSE 5%-0.45% NACL 1,000 ML IV SCH (13:05)
[2022-02-24] MEDS ORDERED: bisacodyL 10 MG SUPP RECTAL PRN (13:05)
[2022-02-24 13:34] LABS: Basophils % (A) 0 %; Eosinophils % (A) 0 %; HGB 10.7 gm/dL (11.4-16.0); Hypochromasia Marked; Lymphocytes % (A) 9 %; MCH 29.1 pg (25.0-35.0); MCHC 31.5 g/dL (31.0-37.0); MCV 92.4 fL (80.0-100.0); Mean Platelet Volume 9.7; Monocytes # (A) 0.5 k/uL (0-1.0); Monocytes % (A) 5 %; Neutrophils # (A) 9.1 k/uL (1.3-7.7); Neutrophils % (A) 85 %; Platelet Count 207 k/uL (150-450); RBC 3.68 m/uL (3.80-5.40); RDW 14.4 % (11.5-15.5); WBC 10.7 k/uL (3.8-10.6)
[2022-02-24 13:53] LABS: Calcium 8.8 mg/dL (8.4-10.2); Potassium 4.2 mmol/L (3.5-5.1)
[2022-02-24] MEDS: ACETAMINOPHEN IV (For NPO) 1,000 MG in EMPTY BAG 1 BAG IVPB SCH ×2 (14:52→18:23)
[2022-02-24] MEDS: IPRATROPIUM 0.5 MG/2.5 ML NEBU INHALATION SCH ×2 (15:20→23:24)
[2022-02-24] MEDS: traMADol 50 MG TAB PO SCH ×2 (16:23→21:37)
[2022-02-24] MEDS: HEPARIN SODIUM,PORCINE/PF 5,000 UNIT/0.5 ML SYRINGE SQ SCH (16:24)
[2022-02-24] MEDS: carvediloL 3.125 MG TAB PO SCH (16:38)
--- NOTE | 2022-02-24 17:06 | P.CNPUL ---
History of Present Illness Consult date: 02/24/22 Reason for consult: lung mass History of present illness: This is a 10-year-old female patient is currently in intensive care unit after having a wedge resection of a left lower lobe pulmonary nodule. The patient is known to have lung cancer. He is on my records, the patient was seen by Dr. Weber many years back. At that time, the patient had a right lung nodule that do not to be positive and Atrovent. The patient was referred to Dr. Mix and the patient underwent a right upper lobe resection, robotic-assisted on 11/02/2017. His surgical findings were consistent with adenocarcinoma and the patient was given a T1b N0 M0 diagnosis staging. All of the lymph nodes were negative. The patient subsequently had a right-sided pleural effusion. The patient underwent thoracentesis on multiple occasions and the fluid cytology came back negative for malignancy. The follow-up CAT scans also showed no evidence of any mediastinal lymphadenopathy. She was seen in the office. The patient saw me for recurrent right-sided pleural effusion. I performed additional thoracentesis on this patient initially removed 750 mL of fluid and the fluid was sent for analysis and was negative for malignancy. In follow-up, the patient was found to have a 5 mm nodule in the left lower lobe and gradually increased in size. Based on a follow-up surveillance CAT scan, the lesion was found to be increasing in size and for that reason the patient underwent a white resection of the left lower lobe pulmonary nodule.. Based on the CAT scan of the chest that was done through her primary care physician on 12/01/2021, the patient had an enlarging left lower lobe pulmonary nodule that was measuring 1.2 x 0.8 cm in size, and the PET scan was admitted and showed mild hypermetabolic activity consistent with malignancy. Note that the patient did not ks for preoperative evaluation. The patient was seen by Dr. Yang Currently, the patient is in the intensive care unit. She is calm and comfortable. Still lethargic. She has a left sided chest tube in place. No evidence of any air leak at this point in time. Output from the chest tube is in the order of 100 mL of bloody effusion. Patient is currently on 2 L about 2 by nasal cannula. Pain is under adequate control for now. No nausea. No vomiting. No emesis. No chest pain. Review of Systems Constitutional Constitutional: no fever, no night sweats, no significant weight gain, no significant weight loss, no exercise intolerance Eyes Eyes: no dry eyes, no vision change, no irritation ENMT Ears: no difficulty hearing, no ear pain Nose: no frequent nosebleeds, no nose problems, no sinus problems Mouth/Throat: no sore throat, no bleeding gums, no snoring, no dry mouth, no mouth ulcers, no oral abnormalities, no teeth problems Cardiovascular Cardiovascular: no chest pain, no arm pain on exertion, no shortness of breath when lying down, no palpitations, no known heart murmur, shortness of breath when walking Respiratory Respiratory: no cough, no wheezing, no coughing up blood, no sleep apnea, shortness of breath Gastrointestinal Gastrointestinal: no abdominal pain, no nausea, no vomiting, no constipation, normal appetite, no diarrhea, not vomiting blood, no dyspepsia, no GERD Genitourinary Genitourinary: no incontinence, no difficulty urinating, no hematuria, no increased frequency Musculoskeletal Musculoskeletal: no muscle aches, no muscle weakness, no arthralgias/joint pain, no back pain, no swelling in the extremities Integumentary Skin: no abnormal mole, no jaundice, no rashes, no laceration Neurologic Neurologic: no loss of consciousness, no weakness, no numbness, no seizures, no dizziness, no migraines, no headaches, no tremor Psychiatric Psych: no depression, no sleep disturbances, feeling safe in a relationship, no alcohol abuse, no anxiety, no hallucinations, no suicidal thoughts Endocrine Endocrine: fatigue Hematologic/Lymphatic Hematologic/Lymphatic no swollen glands, no bruising, no excessive bleeding Allergic/Immunologic Allergy/Immunologic: no runny nose, no sinus pressure, no itching, no hives, no frequent sneezing Past Medical History Past Medical History: Asthma, Coronary Artery Disease (CAD), Cancer, COPD, Hyperlipidemia, Hypertension, Osteoarthritis (OA), Pneumonia, Respiratory Disorder Additional Past Medical History / Comment(s): Adenocarcinoma of the right upper lobe, history of recurrent right-sided pleural effusion requiring multiple thoracentesis, coronary artery disease, chronic hypoxic respiratory failure maintained on O2. History of Any Multi-Drug Resistant Organisms: None Reported Past Surgical History: Appendectomy, Bowel Resection, Ear Surgery, Heart Cathet erization With Stent, Hernia Repair, Hysterectomy, Tonsillectomy Additional Past Surgical History / Comment(s): Colon/bowel surgery done in her 30's-21 inches removed, bilateral cataracts removed, bilateral laser eye surgery, hemorroidectomy, hiatal hernia, robotic rt upper lobectomy w/mediastinal lymph node dissection, 1 cardiac stent Past Anesthesia/Blood Transfusion Reactions: No Reported Reaction Additional Past Anesthesia/Blood Transfusion Reaction / Comment(s): no hx blood transfusion Date of Last Stent Placement:: 01/01/18 Smoking Status: Former smoker - Past Family History Sister(s) Family Medical History: Coronary Artery Disease (CAD) Father Family Medical History: CVA/TIA, Myocardial Infarction ([place]) Mother Family Medical History: Cancer Additional Family Medical History / Comment(s): bowel cancer Medications and Allergies Home Medications Medication Instructions Recorded Confirmed Type ALPRAZolam [Xanax] 0.5 mg PO HS 03/19/14 02/24/22 History Montelukast [Singulair] 10 mg PO HS 09/15/17 02/24/22 History Albuterol Inhaler [Ventolin Hfa 1 puff INHALATION RT-BID PRN 10/30/17 02/24/22 History Inhaler] carvediloL [Coreg] 3.125 mg PO BID 10/30/17 02/24/22 History Clopidogrel [Plavix] 75 mg PO DAILY #90 tab 01/01/18 02/24/22 Rx Budesonide [Pulmicort] 0.5 mg INHALATION RT-BID PRN 03/26/18 02/24/22 History Ipratropium Nebulized [Atrovent 0.5 mg INHALATION RT-TID 03/26/18 02/24/22 History Nebulized 0.2 MG/ML] Potassium Chloride [Klor-Con 10 ER] 10 meq PO BID 03/26/18 02/24/22 History Aspirin [Adult Low Dose Aspirin EC] 81 mg PO HS 04/27/21 02/24/22 History Cholecalciferol [Vitamin D3 (25 25 mcg PO DAILY 04/27/21 02/24/22 History Mcg = 1000 Iu)] Famotidine [Pepcid] 40 mg PO HS 04/27/21 02/24/22 History Furosemide [Lasix] 40 mg PO HS 04/27/21 02/24/22 History Rosuvastatin [Crestor] 20 mg PO DAILY 04/27/21 02/24/22 History Loratadine [Claritin] 10 mg PO DAILY 02/23/22 02/24/22 History Allergies Allergy/AdvReac Type Severity Reaction Status Date / Time Penicillins Allergy Rash/Hives Verified 02/24/22 06:25 Physical Exam Vitals: Vital Signs Temp Pulse Pulse Pulse Resp BP BP 02/24/22 16:00 96.7 F L 93 8 L 02/24/22 15:00 94 18 02/24/22 14:00 93 14 02/24/22 13:00 92 13 02/24/22 12:38 97.8 F 21 02/24/22 12:03 93 16 02/24/22 11:48 93 16 02/24/22 11:37 91 16 02/24/22 11:22 90 16 02/24/22 11:07 87 16 02/24/22 10:52 84 16 02/24/22 10:36 84 16 02/24/22 10:21 78 16 02/24/22 10:06 74 16 02/24/22 09:51 97.3 F L 63 16 165/64 02/24/22 07:27 76 18 187/79 02/24/22 06:23 97.2 F L 72 20 197/81 BP BP BP Pulse Ox 02/24/22 16:00 97 02/24/22 15:00 92 L 02/24/22 14:00 94 L 02/24/22 13:00 93 L 02/24/22 12:38 02/24/22 12:03 133/63 131/55 92 L 02/24/22 11:48 137/60 135/64 92 L 02/24/22 11:37 143/64 138/57 92 L 02/24/22 11:22 153/67 142/58 92 L 02/24/22 11:07 155/68 151/59 94 L 02/24/22 10:52 157/70 142/57 95 02/24/22 10:36 145/68 139/56 96 02/24/22 10:21 148/69 159/71 99 02/24/22 10:06 152/70 152/66 100 02/24/22 09:51 163/74 97 02/24/22 07:27 100 02/24/22 06:23 188/79 100 Intake and Output 02/24/22 02/24/22 02/24/22 06:59 14:59 22:59 Intake Total 200 1290 40 Output Total 245 50 Balance 200 1045 -10 Intake: IV 200 1290 40 Dextrose 5%-0.45% NaCl 1, 40 40 000 ml @ 40 mls/hr IV . Q24H [facility] Rx#:[id number] Output: Drainage 45 50 Left Chest 45 50 Urine 0 0 Estimated Blood Loss 200 Other: Weight 90.7 kg ABP, PAP, CO, CI - Last 8 Hours Arterial Blood Pressure 164/75 Arterial Blood Pressure 167/65 Arterial Blood Pressure 161/70 Arterial Blood Pressure 147/64 Results - Laboratory Findings CBC and BMP: 02/24/22 13:26 02/24/22 13:26 Abnormal lab findings: Abnormal Labs 02/24/22 02/24/22 02/24/22 12:38 13:26 13:26 WBC 10.7 H RBC 3.68 L Hgb 10.7 L Neutrophils # 9.1 H BUN 19 H Glucose 229 H POC Glucose (mg/dL) 223 H - Diagnostic Findings Chest x-ray: image reviewed Assessment and Plan Plan: Left lower lobe pulmonary nodule, enlarging, measuring around 1.2 x 0.8 cm in size, showing mild metabolic activity on PET scan. The patient underwent wedge resection of left lower lobe pulmonary nodule. The patient has a left-sided chest tube placed. Postsurgical changes on the chest x-ray along with a tiny left apical pneumothorax. Chest tube remains in a good location. There may be some limited subcutaneous emphysema along the left chest wall area. Previous right upper lobe resection for adenocarcinoma, stage T Ib N0 M0 History of recurrent right-sided pleural effusion requiring multiple thoracentesis, negative cytology COPD Chronic hypoxic respiratory failure Coronary artery disease Hyperlipidemia Environmental ALLERGIES History of smoking Obesity with a BMI of 36.6 Osteoarthritis Hypertension Plan Titrate FiO2 to maintain saturation above 90% currently on 2 L Hemodynamically stable Plan control with Toradol Continue bronchodilators and the patient is a 97 about treatments around the clock Incentive spirometer Postoperative chest x-ray showed left-sided pleural effusion with a tiny left apical pneumothorax. There is some background COPD Monitor output from the chest tube and monitor the air leak Daily chest x-rays We'll continue to follow in the intensive care unit over the next 24 hours.
[2022-02-24] MEDS ORDERED: hydrALAZINE HCL 20 MG/ML 1 ML VIAL IVP PRN (17:14)
[2022-02-24] MEDS: KETOROLAC 15 MG/ML 1 ML VIAL IVP SCH (19:06)
[2022-02-24] MEDS: FAMOTIDINE 20 MG TAB PO SCH (20:39)
[2022-02-24] MEDS: MONTELUKAST 10 MG TAB PO SCH (20:39)
[2022-02-24] MEDS: ASPIRIN 81 MG PO SCH (20:39)
[2022-02-24] MEDS: METOCLOPRAMIDE 5 MG/ML 2 ML VIAL IVP PRN (22:05)
[2022-02-25] MEDS: KETOROLAC 15 MG/ML 1 ML VIAL IVP SCH ×4 (00:24→17:04)
[2022-02-25] MEDS: ACETAMINOPHEN IV (For NPO) 1,000 MG in EMPTY BAG 1 BAG IVPB SCH ×2 (00:26→05:37)
[2022-02-25] MEDS: HEPARIN SODIUM,PORCINE/PF 5,000 UNIT/0.5 ML SYRINGE SQ SCH ×3 (00:28→16:04)
[2022-02-25 05:08] LABS: Basophils % (A) 0 %; Eosinophils % (A) 0 %; HCT 30.8 % (34.0-46.0); HGB 9.7 gm/dL (11.4-16.0); Hypochromasia Slight; Lymphocytes # (A) 1.1 k/uL (1.0-4.8); Lymphocytes % (A) 13 %; MCH 28.4 pg (25.0-35.0); MCHC 31.6 g/dL (31.0-37.0); Mean Platelet Volume 8.4; Monocytes # (A) 0.5 k/uL (0-1.0); Monocytes % (A) 5 %; Neutrophils # (A) 6.8 k/uL (1.3-7.7); Neutrophils % (A) 80 %; Platelet Count 205 k/uL (150-450); RBC 3.42 m/uL (3.80-5.40); RDW 14.3 % (11.5-15.5); WBC 8.5 k/uL (3.8-10.6)
[2022-02-25 05:17] LABS: Calcium 8.7 mg/dL (8.4-10.2); Potassium 4.1 mmol/L (3.5-5.1)
[2022-02-25] MEDS: METOCLOPRAMIDE 5 MG/ML 2 ML VIAL IVP PRN (05:33)
--- NOTE | 2022-02-25 07:24 | XR ---
EXAMINATION TYPE: XR chest 1V DATE OF EXAM: 02/25/2022 HISTORY: Left lower lobe wedge resection COMPARISON: 02/24/2022 TECHNIQUE: Single view of the chest is submitted. FINDINGS: Postoperative changes of left lower lobe wedge resection. Increased density left lower lobe as well a s patchy right perihilar and right infrahilar density. Left apical pneumothorax persists and is slightly smaller with apical pleural distance of 1 cm curren tly versus 1.3 cm previously. Left-sided chest tube is in place. Small amount of subcutaneous air is seen along the left chest wall inferiorly. The heart is stable. Hilar and mediastinal structures are within normal limits. Degenerative changes are seen of the dorsal spine. IMPRESSION: 1. Left apical pneumothorax is slightly smaller in size. 2. Persistent left lower lobe increased density as well as patchy density right perihilar and right i nfrahilar regions.
[2022-02-25] MEDS: IPRATROPIUM 0.5 MG/2.5 ML NEBU INHALATION SCH ×3 (07:37→19:53)
[2022-02-25] MEDS: traMADol 50 MG TAB PO SCH (08:25)
[2022-02-25] MEDS: carvediloL 3.125 MG TAB PO SCH ×2 (08:25→17:04)
[2022-02-25] MEDS: POTASSIUM CHLORIDE ER 10 MEQ TAB.ER.PRT PO SCH ×2 (08:26→20:39)
[2022-02-25] MEDS: ATORVASTATIN 40 MG TAB PO SCH (08:26)
[2022-02-25] MEDS: LORATADINE 10 MG TAB PO SCH (08:26)
[2022-02-25] MEDS: CHOLECALCIFEROL 25 MCG (1000 IU) TABLET PO SCH (08:26)
--- NOTE | 2022-02-25 08:32 | P.OP ---
Date of Procedure: 02/24/22 Preoperative Diagnosis: Enlarging mass left lower lobe lung Postoperative Diagnosis: Same Procedure(s) Performed: Left thoracoscopy, lysis of adhesions, wedge resection mass left lower lobe. Anesthesia: CONRADOA Surgeon: Jabari Mix Estimated Blood Loss (ml): 30 Pathology: other (Wedge resection left lower lobe sent for permanent section and cultures) Condition: stable Disposition: PACU Indications for Procedure: 82-year-old female with previous right upper lobectomy for stage I lung cancer in 2018 presents at this time with enlarging mass in the left lower lobe on surveillance CT. She is asymptomatic. Because the mass was increasing in size and had mild uptake on PET scan which was also increasing wedge resection was recommended. Operative Findings: There were adhesions of the left lower lobe posteriorly to the chest wall and the diaphragm. Upon taking these down the lung in the immediate area appeared boggy. Wedge resections of this area did not reveal the mass. On further inspection the mass was identified more superiorly near the superior segment of the lower lobe. Wedge resection was accomplished with grossly negative margins. The mass itself was just over a centimeter in size and was very soft. It was pleurally based but had no adherence to the chest wall. Description of Procedure: Patient was brought to the operating room placed supine on the operating table anesthetized and intubated with a double-lumen endotracheal tube. Endotracheal tube was positioned with fiberoptic bronchoscopy. Patient was turned in the l right lateral decubitus position and the left chest sterilely prepped and draped. 3 incisions were made in the left chest inferiorly to fairly anterior in the anterior axillary line and one more posterior single lung ventilation was initiated and the video thoracoscope was introduced into the chest. Exploration revealed significant adhesions posteriorly and these were taken down with electrocautery. Wedge resection in this area was performed and brought out in Endo Catch bag we did not reveal a mass. Further inspection revealed the mass more superiorly and posteriorly near this apex of the superior segment. This was successfully wedged out with multiple firings of Endo SHAQ stapler. It was placed in an Endo Catch bag and brought onto the back field. A small portion of the mass was resected and sent for culture. Mass appeared to have been resected with grossly negative margins. The mass itself was soft and did not have any other unusual features. Following resection of the mass, 28-Malian chest tube was placed through separate stab incision and positioned posterior apically. Was secured with an 0 Ethibond suture. The lung was inflated under thoracoscopic visualization. Staple lines appeared intact and there did not appear to be any significant air leak. Blood had been suctioned out and the pleural space was clear without any evidence of bleeding. Port incisions were closed with layers of Vicryl screw suture and dressed with dry sterile d ressings. Chest tube was connected to a Pleur-evac. Patient was turned supine and extubated and transferred to recovery.
--- NOTE | 2022-02-25 09:16 | P.PN ---
Subjective Progress Note Date: 02/25/22 Principal diagnosis: Enlarging mass left lower lobe lung. Previous medical history of previous right upper lobectomy for adenocarcinoma, recurrent right-sided pleural effusions with multiple thoracentesis as well as Pleurx catheter placement which has since been removed, previous tobacco dependence, COPD, chronic hypoxic respiratory failure on 2 L nasal cannula home oxygen, coronary artery disease with previous PCI in 2018, hypertension, hyperlipidemia, obesity POD #1 left thoracoscopy, lysis of adhesions, wedge resection mass left lower lobe The patient is currently sitting up in a recliner in the intensive care unit in no acute distress. She does complain of postsurgical pain mostly controlled with current medication regimen, denies any significant shortness of breath. Her biggest complaint at this time is lack of sleep. Remains on 2 L nasal cannula per her home dose with oxygen saturation in the mid 90s. Currently in sinus rhythm and hemodynamically stable. Left pleural chest tube remains to waterseal with no air leak present this morning, minimal output. Patient was unable to void last night and did need to be straight cathed. Otherwise no new concerns. Objective - Vital Signs Vital signs: Vital Signs Temp 98.0 F 02/25/22 04:00 Pulse 96 02/25/22 07:38 Resp 18 02/25/22 07:00 BP 123/56 02/25/22 07:00 Pulse Ox 97 02/25/22 07:42 FiO2 Intake & Output 02/24/22 02/25/22 02/25/22 18:59 06:59 18:59 Intake Total 1700 710 Output Total 315 680 0 Balance 1385 30 0 Weight 90.7 kg 92.7 kg Intake: IV 1650 710 ACETAMINOPHEN IV (For NPO 100 300 ) 1,000 mg In Empty Bag 1 bag @ 400 mls/hr IVPB Q6HR [facility] Rx#:[id number] Dextrose 5%-0.45% NaCl 1, 200 360 000 ml @ 40 mls/hr IV . Q24H [facility] Rx#:[id number] ceFAZolin 2 gm In Sodium 100 50 Chloride 0.9% 50 ml @ 100 mls/hr IVPB ONCE PRN Rx# :[id number] Oral 50 Output: Drainage 115 130 Left Chest 115 130 Urine 0 450 0 Emesis 100 Estimated Blood Loss 200 Other: Voiding Method External Catheter External Catheter # Bowel Movements 0 0 ABP, PAP, CO, CI - Last Documented Arterial Blood Pressure 153/60 - Exam CONSTITUTIONAL: Appears comfortable, cooperative, no acute distress RESPIRATORY: Lungs sounds diminished bilaterally. Respirations even, nonlabored. Currently on 2 L nasal cannula with oxygen saturation 94%. Only able to achieve 500 mL on incentive spirometry. Strong cough. CARDIOVASCULAR: S1, S2 present. Regular rate and rhythm, sinus rhythm on telemetry. Palpable peripheral pulses bilaterally. No edema present. No calf pain or tenderness noted. SCDs present. GASTROINTESTINAL: Abdomen soft, nontender, nondistended. Active bowel sounds present 4 quadrants. Tolerating diet. GENITOURINARY: Straight cathed for 450 mL yellow urine last night INTEGUMENTARY: Skin is warm and dry with evidence of good perfusion. Thoracic incisions well approximated and covered with dry intact dressing. NEUROLOGIC: Cranial nerves II through XII intact MUSKULOSKELETAL: Able to move all extremities, strength equal bilaterally, gait normal PSYCHIATRIC: Alert and oriented to person place and time, appropriate affect, intact judgment and insight INVASIVE LINES AND TUBES: Left pleural chest tube present and connected to wall suction, no air leaks present, 90 mL serosanguineous drainage overnight, 245 mL since surgery - Allied health notes Allied health notes reviewed: nursing - Labs CBC & Chem 7: 02/25/22 04:50 02/25/22 04:50 Labs: Abnormal Lab Results - Last 24 Hours (Table) 02/24/22 02/24/22 02/24/22 Range/Units 12:38 13:26 13:26 WBC 10.7 H (3.8-10.6) k/uL RBC 3.68 L (3.80-5.40) m/uL Hgb 10.7 L (11.4-16.0) gm/dL Hct (34.0-46.0) % Neutrophils # 9.1 H (1.3-7.7) k/uL Sodium (137-145) mmol/L BUN 19 H (7-17) mg/dL Glucose 229 H (74-99) mg/dL POC Glucose (mg/dL) 223 H (70-110) mg/dL 02/25/22 02/25/22 Range/Units 04:50 04:50 WBC (3.8-10.6) k/uL RBC 3.42 L (3.80-5.40) m/uL Hgb 9.7 L (11.4-16.0) gm/dL Hct 30.8 L (34.0-46.0) % Neutrophils # (1.3-7.7) k/uL Sodium 134 L (137-145) mmol/L BUN 19 H (7-17) mg/dL Glucose 130 H (74-99) mg/dL POC Glucose (mg/dL) (70-110) mg/dL Microbiology - Last 24 Hours (Table) 02/24/22 09:19 Gram Stain - Preliminary Lung - Left Lower Lobe Tissue Culture - Preliminary 02/24/22 09:19 Fungal Culture - Preliminary Lung - Left Lower Lobe 02/24/22 09:19 Acid Fast Bacilli Culture - Preliminary Lung - Left Lower Lobe 02/24/22 09:19 Anaerobic Culture - Preliminary Lung - Left Lower Lobe - Imaging and Cardiology Chest x-ray: report reviewed, image reviewed Assessment and Plan Assessment: 1. Enlarging mass left lower lobe lung, status post left thoracoscopy, lysis of adhesions, wedge resection mass left lower lobe 2. History of previous right upper lobectomy for adenocarcinoma 3. History of recurrent right-sided pleural effusions with multiple thoracentesis as well as Pleurx catheter placement which has since been removed 4. Previous tobacco dependence 5. COPD 6. Chronic hypoxic respiratory failure on 2 L nasal cannula home oxygen 7. Coronary artery disease with previous PCI in 2018 8. Hypertension 9. Hyperlipidemia 10. Obesity Plan: 1. Will clamp and likely discontinue left pleural chest tube today. 2. Will repeat chest x-ray after chest tube removal, a stable may discharge to home when patient ready 3. Encourage incentive spirometry 10 times every hour while awake 4. Increase activity, ambulate as tolerated 5. Monitor for urine output 6. Pain control current medication regimen 7. More recommendations to follow
[2022-02-25] MEDS ORDERED: traMADol 50 MG TAB PO PRN (09:56)
[2022-02-25] MEDS ORDERED: ACETAMINOPHEN TAB 325 MG TAB PO PRN (09:56)
[2022-02-25] MEDS: ALBUTEROL NEBULIZED 2.5 MG/3 ML INHALATION SCH ×3 (11:28→19:53)
--- NOTE | 2022-02-25 14:23 | P.PN ---
Subjective Progress Note Date: 02/25/22 This is a 10-year-old female patient is currently in intensive care unit after h aving a wedge resection of a left lower lobe pulmonary nodule. The patient is known to have lung cancer. He is on my records, the patient was seen by Dr. Weber many years back. At that time, the patient had a right lung nodule that do not to be positive and Atrovent. The patient was referred to Dr. Mix and the patient underwent a right upper lobe resection, robotic-assisted on 11/02/2017. His surgical findings were consistent with adenocarcinoma and the patient was given a T1b N0 M0 diagnosis staging. All of the lymph nodes were negative. The patient subsequently had a right-sided pleural effusion. The patient underwent thoracentesis on multiple occasions and the fluid cytology c deloris back negative for malignancy. The follow-up CAT scans also showed no evidence of any mediastinal lymphadenopathy. She was seen in the office. The patient saw me for recurrent right-sided pleural effusion. I performed additional thoracentesis on this patient initially removed 750 mL of fluid and the fluid was sent for analysis and was negative for malignancy. In follow-up, the patient was found to have a 5 mm nodule in the left lower lobe and gradually increased in size. Based on a follow-up surveillance CAT scan, the lesion was found to be increasing in size and for that reason the patient underwent a white resection of the left lower lobe pulmonary nodule.. Based on the CAT scan of the chest that was done through her primary care physician on 12/01/2021, the patient had an enlarging left lower lobe pulmonary nodule that was measuring 1.2 x 0.8 cm in size, and the PET scan was admitted and showed mild hypermetabolic activity consistent with malignancy. Note that the patient did not me for preoperative evaluation. The patient was seen by Dr. Yang Currently, the patient is in the intensive care unit. She is calm and comfortable. Still lethargic. She has a left sided chest tube in place. No evidence of any air leak at this point in time. Output from the chest tube is in the order of 100 mL of bloody effusion. Patient is currently on 2 L about 2 by nasal cannula. Pain is under adequate control for now. No nausea. No vomiting. No emesis. No chest pain. 02/25/2022, the patient is doing well. She is having some pain across the surgical site area. The patient is receiving Toradol for pain control. No nausea. No vomiting. No chest pain. He remains on oxygen at 2 L per minute nasal cannula. She was stable and the patient remains on a cardiac rhythm is essentially sinus for now. Chest x-ray shows a tiny left apical pneumothorax. There is no evidence of any air leak. Output from the chest tube is minimal and bili decided to remove the left-sided chest tube. No nausea. No vomiting. No altered mentation. No other significant events otherwise for now. The blood work shows a hemoglobin of 9.7 which is slightly lower compared to yesterday. The white cell count is at 8.5. Platelet count is at 205. BUN is at 19 with a creatinine of 0.8 and the patient's sodium level is at 134. Objective - Vital Signs Vital signs: Vital Signs Temp 97.7 F 02/25/22 12:00 Pulse 98 02/25/22 13:00 Resp 16 02/25/22 13:00 BP 149/76 02/25/22 13:00 Pulse Ox 92 L 02/25/22 13:00 FiO2 Intake & Output 02/24/22 02/25/22 02/25/22 18:59 06:59 18:59 Intake Total 1700 710 Output Total 315 680 0 Balance 1385 30 0 Weight 90.7 kg 92.7 kg Intake: IV 1650 710 ACETAMINOPHEN IV (For NPO 100 300 ) 1,000 mg In Empty Bag 1 bag @ 400 mls/hr IVPB Q6HR [facility] Rx#:[id number] Dextrose 5%-0.45% NaCl 1, 200 360 000 ml @ 40 mls/hr IV . Q24H [facility] Rx#:[id number] ceFAZolin 2 gm In Sodium 100 50 Chloride 0.9% 50 ml @ 100 mls/hr IVPB ONCE PRN Rx# :[id number] Oral 50 Output: Drainage 115 130 Left Chest 115 130 Urine 0 450 0 Emesis 100 Estimated Blood Loss 200 Other: Voiding Method External Catheter External Catheter # Bowel Movements 0 0 ABP, PAP, CO, CI - Last Documented Arterial Blood Pressure 154/62 - Exam CONSTITUTIONAL: Appears comfortable, cooperative, no acute distress RESPIRATORY: Lungs sounds diminished bilaterally. Respirations even, nonlabored. Currently on 2 L nasal cannula with oxygen saturation 94%. Only able to achieve 500 mL on incentive spirometry. Strong cough. CARDIOVASCULAR: S1, S2 present. Regular rate and rhythm, sinus rhythm on telem etry. Palpable peripheral pulses bilaterally. No edema present. No calf pain or tenderness noted. SCDs present. GASTROINTESTINAL: Abdomen soft, nontender, nondistended. Active bowel sounds present 4 quadrants. Tolerating diet. GENITOURINARY: Straight cathed for 450 mL yellow urine last night INTEGUMENTARY: Skin is warm and dry with evidence of good perfusion. Thoracic incisions well approximated and covered with dry intact dressing. NEUROLOGIC: Cranial nerves II through XII intact MUSKULOSKELETAL: Able to move all extremities, strength equal bilaterally, gait normal PSYCHIATRIC: Alert and oriented to person place and time, appropriate affect, intact judgment and insight INVASIVE LINES AND TUBES: Left pleural chest tube present and connected to wall suction, no air leaks present, 90 mL serosanguineous drain - Labs CBC & Chem 7: 02/25/22 04:50 02/25/22 04:50 Labs: Abnormal Lab Results - Last 24 Hours (Table) 02/25/22 02/25/22 Range/Units 04:50 04:50 RBC 3.42 L (3.80-5.40) m/uL Hgb 9.7 L (11.4-16.0) gm/dL Hct 30.8 L (34.0-46.0) % Sodium 134 L (137-145) mmol/L BUN 19 H (7-17) mg/dL Glucose 130 H (74-99) mg/dL Microbiology - Last 24 Hours (Table) 02/24/22 09:19 Gram Stain - Preliminary Lung - Left Lower Lobe Tissue Culture - Preliminary 02/24/22 09:19 Fungal Culture - Preliminary Lung - Left Lower Lobe 02/24/22 09:19 Acid Fast Bacilli Culture - Preliminary Lung - Left Lower Lobe 02/24/22 09:19 Anaerobic Culture - Preliminary Lung - Left Lower Lobe Assessment and Plan Plan: Left lower lobe pulmonary nodule, enlarging, measuring around 1.2 x 0.8 cm in size, showing mild metabolic activity on PET scan. The patient underwent wedge resection of left lower lobe pulmonary nodule. The patient has a left-sided chest tube placed. Postsurgical changes on the chest x-ray along with a tiny left apical pneumothorax. Chest tube remains in a good location. There may be some limited subcutaneous emphysema along the left chest wall area. The patient is currently on day #1 and the patient is doing extremely well for now. No active issues for now. The patient is hemodynamically stable. Left-sided chest tube will be removed. Previous right upper lobe resection for adenocarcinoma, stage T Ib N0 M0 History of recurrent right-sided pleural effusion requiring multiple thoracentesis, negative cytology COPD Chronic hypoxic respiratory failure Coronary artery disease Hyperlipidemia Environmental ALLERGIES History of smoking Obesity with a BMI of 36.6 Osteoarthritis Hypertension Plan Titrate FiO2 to maintain saturation above 90% currently on 2 L Remove the left-sided chest tube Follow-up chest x-ray either today or tomorrow to monitor the left-sided pneumothorax which is tiny Hemodynamically stable Plan control with Toradol Continue bronchodilators Incentive spirometer Increased mobility and activity We'll continue to follow in the intensive care unit over the next 24 hours.
[2022-02-25] MEDS: IPRATROPIUM-ALBUTEROL 3 ML NEB INHALATION SCH (19:59)
[2022-02-25 20:06] VITALS: RESP 18
[2022-02-25] MEDS: ASPIRIN 81 MG PO SCH (20:39)
[2022-02-25] MEDS: FAMOTIDINE 20 MG TAB PO SCH (20:39)
[2022-02-25] MEDS: MONTELUKAST 10 MG TAB PO SCH (20:39)
[2022-02-25] MEDS ORDERED: FUROSEMIDE 40 MG TAB PO SCH (21:00)
[2022-02-26] MEDS: HEPARIN SODIUM,PORCINE/PF 5,000 UNIT/0.5 ML SYRINGE SQ SCH ×2 (00:15→09:22)
[2022-02-26] MEDS: KETOROLAC 15 MG/ML 1 ML VIAL IVP SCH ×3 (00:15→11:52)
[2022-02-26] MEDS: carvediloL 3.125 MG TAB PO SCH (06:43)
--- NOTE | 2022-02-26 07:41 | XR ---
EXAMINATION TYPE: XR chest 2V DATE OF EXAM: 02/26/2022 COMPARISON: 02/25/2022 HISTORY: 82-year-old female post lung wedge resection TECHNIQUE: AP and lateral views FINDINGS: Left chest tube removed in the interval. No definite appreciable pneumothorax on the current exam. He art remains enlarged. Patchy lower lung opacities remain with slight improvement on the right. Simila r volume loss right hemithorax. Hyperinflation. Stable alignment at the left hilum from patient's wed ge resection. IMPRESSION: 1. Left chest tube removed in the interval. No appreciable pneumothorax. 2. Cardiomegaly and COPD. Wedge resection changes at the left hilum. 3. Similar volume loss right hemithorax. Continued patchy bibasilar opacities though slightly improve d on the right now.
[2022-02-26] MEDS: IPRATROPIUM-ALBUTEROL 3 ML NEB INHALATION SCH ×2 (07:51→11:05)
[2022-02-26 09:07] LABS: HCT 28.1 % (34.0-46.0); HGB 9.1 gm/dL (11.4-16.0); MCH 28.6 pg (25.0-35.0); MCHC 32.3 g/dL (31.0-37.0); MCV 88.6 fL (80.0-100.0); Mean Platelet Volume 8.7; Platelet Count 172 k/uL (150-450); RBC 3.17 m/uL (3.80-5.40); RDW 14.4 % (11.5-15.5); WBC 7.8 k/uL (3.8-10.6)
[2022-02-26 09:17] VITALS: TEMP 98.1
--- NOTE | 2022-02-26 09:20 | P.DS ---
Providers Date of admission: 02/24/22 13:59 Expected date of discharge: 02/26/22 Attending physician: Jabari Mix Consults: 02/24/22 13:05 Consult Physician Routine Consulting Provider: Pablo Yang Consult Reason/Comments: Pulmonary management Do you want consulting provider notified?: Yes Consult Physician Routine Consulting Provider: Marcelina Joseph Consult Reason/Comments: ICU Management Do you want consulting provider notified?: Yes Consult Physician Routine Consulting Provider: Billy Saul Consult Reason/Comments: Medical management Do you want consulting provider notified?: Yes Primary care physician: [facility] Course: FINAL DIAGNOSIS: 1. Enlarging mass left lower lobe lung, pathology pending 2. History of previous right upper lobectomy for adenocarcinoma 3. History of recurrent right-sided pleural effusion with multiple thoracentesis as well as Pleurx catheter which has since been removed 4. Previous tobacco dependence 5. COPD 6. Chronic hypoxic respiratory failure on 2 L nasal cannula home oxygen 7. Coronary artery disease with previous PCI in 2018 8. Hypertension 9. Hyperlipidemia 10. Obesity PRINCIPAL PROCEDURE: 1. Left thoracoscopy, lysis of adhesions, wedge resection mass left lower lobe HISTORY OF PRESENT ILLNESS: This is an 82-year-old female who follows on an outpatient basis with Dr. Billy Saul for primary care and Dr. Yang for pulmonology. She had undergone a previous right-sided lobectomy of the right upper lobe for stage I lung cancer in 2018 Dr. Mix. This was complicated by persistent pleural effusion requiring Pleurx catheter. She continued to follow Dr. Mix and was seen in 2020 at which time she had a new very small pulmonary nodule in the left lower lobe. PET scan showed very minimal uptake in the nodule and it was considered to be spiculated and somewhat suspicious for carcinoma. The patient at that time was undergoing workup for possible colon carcinoma and was scheduled for colonoscopy, she was supposed to follow up with Dr. Mix after the colonoscopy but did not do so. Multiple attempts were made to contact the patient. She finally underwent colonoscopy in April 2021 with no evidence of carcinoma found. A repeat computed tomography scan of the chest was performed in the spring which showed increase in the size of the nodule, and follow-up PET scan was performed in January demonstrating increase in the size of the nodule from 9 x 8 mm last year to 12 x 9 mm this year. SUV had also increased and the shape of the nodule had changed from a very small spiculated nodule last year to a much hanson more ovoid mass this year. The patient was seen again by Dr. Mix. Options were discussed with the patient and her son, the patient preferred to have thoracoscopic resection of the nodule to be both diagnostic and therapeutic. The usual perioperative course was discussed in detail with the patient and her son, all risks and benefits were explained, all questions were answered, and consent was obtained to proceed with surgery. The patient was scheduled for surgery at the earliest possible agreed- upon date once medical clearance was obtained from her primary care physician. HOSPITAL COURSE: The patient was brought to the hospital on 02/24/22, taken to the preoperative area, prepared in the usual fashion, and subsequently taken to the operating room where Dr. Mix performed a left thoracoscopy with lysis of adhesions and a wedge resection of the mass in the left lower lobe. Upon completion of surgery the patient was extubated and taken to the recovery room where she was recovered and monitored hemodynamically. She was eventually admitted to the intensive care unit for further monitoring. There was no air leak in her chest tube and it was placed to waterseal the night of surgery. Follow-up chest x-ray the next morning was stable and her chest tube was discontinued without incident. She was transferred to 3 S. cardiac stepdown unit for further monitoring. Repeat chest x-ray demonstrated no pneumothorax. She remained on her home oxygen use of 2 L nasal cannula, she was tolerating oral diet, her pain was controlled, and she was ready to be discharged to home with [facility] care on postoperative day #2. She received written and verbal instruction regarding her medications, activity restrictions, signs and symptoms requiring physician notification, and follow-up appointments. Patient Condition at Discharge: Stable Plan - Discharge Summary Discharge Rx Participant: No New Discharge Prescriptions: New Acetaminophen Tab [Tylenol] 650 mg PO Q4HR PRN tab PRN Reason: Fever And/ Or Pain Continue ALPRAZolam [Xanax] 0.5 mg PO HS Montelukast [Singulair] 10 mg PO HS carvediloL [Coreg] 3.125 mg PO BID Albuterol Inhaler [Ventolin Hfa Inhaler] 1 puff INHALATION RT-BID PRN PRN Reason: Shortness Of Breath Clopidogrel [Plavix] 75 mg PO DAILY #90 tab Ipratropium Nebulized [Atrovent Nebulized 0.2 MG/ML] 0.5 mg INHALATION RT-TID Budesonide [Pulmicort] 0.5 mg INHALATION RT-BID PRN PRN Reason: sob Potassium Chloride [Klor-Con 10 ER] 10 meq PO BID Rosuvastatin [Crestor] 20 mg PO DAILY Loratadine [Claritin] 10 mg PO DAILY Aspirin [Adult Low Dose Aspirin EC] 81 mg PO HS Cholecalciferol [Vitamin D3 (25 Mcg = 1000 Iu)] 25 mcg PO DAILY Famotidine [Pepcid] 40 mg PO HS Furosemide [Lasix] 40 mg PO HS Discharge Medication List ALPRAZolam [Xanax] 0.5 mg PO HS 03/19/14 [History] Montelukast [Singulair] 10 mg PO HS 09/15/17 [History] Albuterol Inhaler [Ventolin Hfa Inhaler] 1 puff INHALATION RT-BID PRN 10/30/17 [History] carvediloL [Coreg] 3.125 mg PO BID 10/30/17 [History] Clopidogrel [Plavix] 75 mg PO DAILY #90 tab 01/01/18 [Rx] Budesonide [Pulmicort] 0.5 mg INHALATION RT-BID PRN 03/26/18 [History] Ipratropium Nebulized [Atrovent Nebulized 0.2 MG/ML] 0.5 mg INHALATION RT-TID 03/26/18 [History] Potassium Chloride [Klor-Con 10 ER] 10 meq PO BID 03/26/18 [History] Aspirin [Adult Low Dose Aspirin EC] 81 mg PO HS 04/27/21 [History] Cholecalciferol [Vitamin D3 (25 Mcg = 1000 Iu)] 25 mcg PO DAILY 04/27/21 [History] Famotidine [Pepcid] 40 mg PO HS 04/27/21 [History] Furosemide [Lasix] 40 mg PO HS 04/27/21 [History] Rosuvastatin [Crestor] 20 mg PO DAILY 04/27/21 [History] Loratadine [Claritin] 10 mg PO DAILY 02/23/22 [History] Acetaminophen Tab [Tylenol] 650 mg PO Q4HR PRN tab 02/26/22 [Rx] Follow up Appointment(s)/Referral(s): Billy Saul MD [Primary Care Provider] - 1 Week Jabari Mix MD [STAFF PHYSICIAN] - 03/03/22 2:15 pm Pablo Yang MD [STAFF PHYSICIAN] - 03/11/22 11:30 am Activity/Diet/Wound Care/Special Instructions: DISCHARGE INSTRUCTIONS: 1. No driving for 2 weeks, or until physician gives their ok. 2. No lifting, pushing, or pulling more than 10 pounds for 2 weeks. The physician will advise of any restriction changes. 3. Continue pain control per as needed orders. Alternate acetaminophen (Tylenol) and ibuprofen (Motrin/Advil) for pain. 4. Continue with incentive spirometry and splinting until otherwise directed by the physician. 5. Leave chest tube dressing for 48 hours (Monday02/27/22). After that, remove all dressings and shower daily. 6. Routine incision care. No powders, lotions, ointments on incisions. 7. Please call surgeon/PAYROLL CLERK for temp greater than 101 F or purulent drainage from incisions. Discharge Disposition: HOME WITH HOME HEALTH SERVICES
[2022-02-26] MEDS: CHOLECALCIFEROL 25 MCG (1000 IU) TABLET PO SCH (09:22)
[2022-02-26] MEDS: POTASSIUM CHLORIDE ER 10 MEQ TAB.ER.PRT PO SCH (09:22)
[2022-02-26] MEDS: LORATADINE 10 MG TAB PO SCH (09:22)
[2022-02-26] MEDS: ATORVASTATIN 40 MG TAB PO SCH (09:22)
[2022-02-26 09:26] LABS: Calcium 8.4 mg/dL (8.4-10.2); Potassium 4.1 mmol/L (3.5-5.1)
[2022-02-26 11:52] VITALS: BP 131/88; PULSE 100
--- NOTE | 2022-02-26 11:54 | P.PN ---
Subjective Progress Note Date: 02/26/22 This is a 10-year-old female patient is currently in intensive care unit after h aving a wedge resection of a left lower lobe pulmonary nodule. The patient is known to have lung cancer. He is on my records, the patient was seen by Dr. Weber many years back. At that time, the patient had a right lung nodule that do not to be positive and Atrovent. The patient was referred to Dr. Mix and the patient underwent a right upper lobe resection, robotic-assisted on 11/02/2017. His surgical findings were consistent with adenocarcinoma and the patient was given a T1b N0 M0 diagnosis staging. All of the lymph nodes were negative. The patient subsequently had a right-sided pleural effusion. The patient underwent thoracentesis on multiple occasions and the fluid cytology c deloris back negative for malignancy. The follow-up CAT scans also showed no evidence of any mediastinal lymphadenopathy. She was seen in the office. The patient saw me for recurrent right-sided pleural effusion. I performed additional thoracentesis on this patient initially removed 750 mL of fluid and the fluid was sent for analysis and was negative for malignancy. In follow-up, the patient was found to have a 5 mm nodule in the left lower lobe and gradually increased in size. Based on a follow-up surveillance CAT scan, the lesion was found to be increasing in size and for that reason the patient underwent a white resection of the left lower lobe pulmonary nodule.. Based on the CAT scan of the chest that was done through her primary care physician on 12/01/2021, the patient had an enlarging left lower lobe pulmonary nodule that was measuring 1.2 x 0.8 cm in size, and the PET scan was admitted and showed mild hypermetabolic activity consistent with malignancy. Note that the patient did not me for preoperative evaluation. The patient was seen by Dr. Yang Currently, the patient is in the intensive care unit. She is calm and comfortable. Still lethargic. She has a left sided chest tube in place. No evidence of any air leak at this point in time. Output from the chest tube is in the order of 100 mL of bloody effusion. Patient is currently on 2 L about 2 by nasal cannula. Pain is under adequate control for now. No nausea. No vomiting. No emesis. No chest pain. 02/25/2022, the patient is doing well. She is having some pain across the surgical site area. The patient is receiving Toradol for pain control. No nausea. No vomiting. No chest pain. He remains on oxygen at 2 L per minute nasal cannula. She was stable and the patient remains on a cardiac rhythm is essentially sinus for now. Chest x-ray shows a tiny left apical pneumothorax. There is no evidence of any air leak. Output from the chest tube is minimal and bili decided to remove the left-sided chest tube. No nausea. No vomiting. No altered mentation. No other significant events otherwise for now. The blood work shows a hemoglobin of 9.7 which is slightly lower compared to yesterday. The white cell count is at 8.5. Platelet count is at 205. BUN is at 19 with a creatinine of 0.8 and the patient's sodium level is at 134. 02/26/2022, the patient has no complaints. Chest wall and today's chest x-ray shows no evidence of any pneumothorax and the patient is ambulating. She is on 2 L of oxygen by nasal cannula. No issues with pain. The patient underwent a wedge resection of bladder lower lobe mass Objective - Vital Signs Vital signs: Vital Signs Temp 98.1 F 02/26/22 09:13 Pulse 100 02/26/22 11:51 Resp 18 02/26/22 11:51 BP 131/88 02/26/22 11:51 Pulse Ox 97 02/26/22 11:51 FiO2 Intake & Output 02/25/22 02/26/22 02/26/22 18:59 06:59 18:59 Intake Total 120 240 Output Total 320 600 Balance -200 -600 240 Weight 91.4 kg Intake: Oral 120 240 Output: Urine 320 600 Stool 0 Urine/Stool Mix 0 Other: Voiding Method Bedside Commode Bedside Commode Bedside Commode # Voids 0 1 # Bowel Movements 0 1 ABP, PAP, CO, CI - Last Documented Arterial Blood Pressure 154/62 - Exam CONSTITUTIONAL: Appears comfortable, cooperative, no acute distress RESPIRATORY: Lungs sounds diminished bilaterally. Respirations even, nonlabored. CARDIOVASCULAR: S1, S2 present. Regular rate and rhythm, sinus rhythm on telemetry. Palpable peripheral pulses bilaterally. No edema present. No calf pain or tenderness noted. SCDs present. GASTROINTESTINAL: Abdomen soft, nontender, nondistended. Active bowel sounds present 4 quadrants. Tolerating diet. GENITOURINARY: Straight cathed for 450 mL yellow urine last night INTEGUMENTARY: Skin is warm and dry with evidence of good perfusion. Thoracic incisions well approximated and covered with dry intact dressing. The chest tube was removed NEUROLOGIC: Cranial nerves II through XII intact MUSKULOSKELETAL: Able to move all extremities, strength equal bilaterally, gait normal PSYCHIATRIC: Alert and oriented to person place and time, appropriate affect, intact judgment and insight - Labs CBC & Chem 7: 02/26/22 08:20 02/26/22 08:20 Labs: Abnormal Lab Results - Last 24 Hours (Table) 02/26/22 02/26/22 Range/Units 08:20 08:20 RBC 3.17 L (3.80-5.40) m/uL Hgb 9.1 L (11.4-16.0) gm/dL Hct 28.1 L (34.0-46.0) % Sodium 135 L (137-145) mmol/L BUN 21 H (7-17) mg/dL Glucose 116 H (74-99) mg/dL Microbiology - Last 24 Hours (Table) 02/24/22 09:19 Acid Fast Bacilli Smear - Final Lung - Left Lower Lobe Acid Fast Bacilli Culture - Preliminary 02/24/22 09:19 Gram Stain - Preliminary Lung - Left Lower Lobe Tissue Culture - Preliminary Assessment and Plan Plan: Left lower lobe pulmonary nodule, enlarging, measuring around 1.2 x 0.8 cm in size, showing mild metabolic activity on PET scan. The patient underwent wedge resection of left lower lobe pulmonary nodule. The patient has a left-sided chest tube placed. Postsurgical changes on the chest x-ray along with a tiny left apical pneumothorax. Chest tube remains in a good location. There may be some limited subcutaneous emphysema along the left chest wall area. The patient is currently on day #2 and the patient is doing extremely well for now. No active issues for now. The patient is hemodynamically stable. Left-sided chest tube was removed and the chest x-ray from today showed no evidence of any pneumothorax awaiting final pathology Previous right upper lobe resection for adenocarcinoma, stage T Ib N0 M0 History of recurrent right-sided pleural effusion requiring multiple thoracentesis, negative cytology COPD Chronic hypoxic respiratory failure Coronary artery disease Hyperlipidemia Environmental ALLERGIES History of smoking Obesity with a BMI of 36.6 Osteoarthritis Hypertension Plan Chest x-ray shows no pneumothorax Hemodynamically stable Pain control is adequate Continue bronchodilators Incentive spirometer Increased mobility and activity Discharge home today
--- NOTE | 2022-02-28 08:19 | CONS ---
CONSULTATION HISTORY OF PRESENT ILLNESS: Seen in ICU on 02/24/22, status post lung cancer removal by Dr. Mix under surgery. She had a wedge resection of left lower lobe pulmonary nodule. She had cancer in the past, and she has been on 2 L oxygen since her prior lobectomy. She is saturating on 2 L right now at 97 post surgery, which is really good. She had adenocarcinoma. She had recurrent right pleural effusion, for which, she had a prolonged thoracentesis tube placed, which was eventually removed. We have been following CAT scan over the last 6 to 8 months. Now, she had a bigger lesion, which was consistent with malignancy with PET scan, so it was removed. She is remaining on 2 L now. REVIEW OF SYSTEMS: Besides the left-sided back pain where the incision was, otherwise she is negative with her review of systems. PAST MEDICAL HISTORY: As mentioned with adenocarcinoma of the lung; asthma; COPD, end-stage, on 2 L; hypertension; dyslipidemia; and osteoarthritis. PAST SURGICAL HISTORY: Appendectomy, bowel surgery, ear surgery, heart catheterization with stent, hernia repair, hysterectomy, and tonsillectomy. FAMILY HISTORY: Sister, coronary artery disease. Father, myocardial infarction. Mother, bowel cancer. MEDICATIONS: See list. ALLERGIES: Penicillin. PHYSICAL EXAMINATION: VITAL SIGNS: Temperature 96 to 97, pulse 90s to 80s, respiratory rate 18 to 16. CARDIOVASCULAR: S1 and S2. LUNGS: Clear. GI: Soft. She has pads over her incisions. NEUROLOGIC: She appears to be sleepy and lethargic, but awakes, gives appropriate answers, talking with no conversational dyspnea on 2 L at this time, which is great. ENDOCRINE: BMI is over 40. status post lobectomy, wedge resection of the lung for lung cancer. Pathology pending. Standard postoperative care will be done. Home medicines will be ordered. Her hemoglobin is 10.7, white count is 10.7. Continue current treatment. ASSESSMENT: Adenocarcinoma lung cancer, status post wedge resection; chronic obstructive pulmonary disease; chronic hypoxemic respiratory failure, normally on 2 L of oxygen; coronary artery disease; dyslipidemia; nicotine addiction; degenerative disk disease; osteoarthritis; hypertension. Current postoperative care. Please see further orders. MMODL / IJN: [id number] /
== END 2022-02-26 12:44 | disposition home health service (06) | DRG 164 ==
LOC: OR 05:43 → 2SICU 13:03 → 3SCARD 02-25 16:43
PROVIDERS: ADMIT Thoracic Surgery (Cardiothoracic Vascular Surgery); ATTEND Thoracic Surgery (Cardiothoracic Vascular Surgery)
PROC: 0BBJ8ZX Excision of Left Lower Lung Lobe, Via Natural or Artificial Opening Endoscopic, Diagnostic (ICD-10-PCS; 2022-02-24)
PROC: 0BNT4ZZ Release Diaphragm, Percutaneous Endoscopic Approach (ICD-10-PCS; principal; 2022-02-24 07:30)
DX: C34.32 Malignant neoplasm of lower lobe, left bronchus or lung (principal); J90 Pleural effusion, not elsewhere classified; J96.11 Chronic respiratory failure with hypoxia; J93.9 Pneumothorax, unspecified; J44.9 Chronic obstructive pulmonary disease, unspecified; I10 Essential (primary) hypertension; E66.9 Obesity, unspecified; Z68.36 Body mass index [BMI] 36.0-36.9, adult; K66.0 Peritoneal adhesions (postprocedural) (postinfection); I25.10 Atherosclerotic heart disease of native coronary artery without angina pectoris; T81.82XA Emphysema (subcutaneous) resulting from a procedure, initial encounter; M19.90 Unspecified osteoarthritis, unspecified site; E78.5 Hyperlipidemia, unspecified; Z99.81 Dependence on supplemental oxygen; Z90.2 Acquired absence of lung [part of]; Z90.710 Acquired absence of both cervix and uterus; Z90.89 Acquired absence of other organs; Z95.5 Presence of coronary angioplasty implant and graft; Z82.49 Family history of ischemic heart disease and other diseases of the circulatory system; Z80.0 Family history of malignant neoplasm of digestive organs; Z88.0 Allergy status to penicillin; Z87.01 Personal history of pneumonia (recurrent); Z79.899 Other long term (current) drug therapy; Z79.02 Long term (current) use of antithrombotics/antiplatelets; Z79.51 Long term (current) use of inhaled steroids; Z79.82 Long term (current) use of aspirin; Z82.3 Family history of stroke; Z87.891 Personal history of nicotine dependence
CPT/HCPCS: 64999; 71045; 71046; 80048; 84132; 85025; 85027; 86850; 86900; 86901; 87070; 87075; 87102; 87116; 87205; 87206; 88307; 88313; 88341; 88342; 94640

== ENCOUNTER → 2022-04-08 | Outpatient (CLI) | payer MEDICARE, OTHER ==
--- NOTE | 2022-04-08 16:29 | CT ---
EXAMINATION TYPE: CT chest wo con DATE OF EXAM: 04/08/2022 COMPARISON: 12/01/2021 HISTORY: Pleural effusion Unenhanced CT of the chest was performed with lung and mediastinal window settings submitted. The la ck of contrast limits evaluation of the vascular, mediastinal and parenchymal structures including th e upper abdomen. LUNGS: There is a new pleural-based soft tissue mass left lower lobe with extension into the chest wa ll and subcutaneous region of the back. Soft tissue mass measures approximately 7.3 x 4.1 cm and demo nstrates mild rib destruction of left rib #9. Enlarging left nodule left lower lobe measuring 1.5 cm. Pleural-based nodule seen previously left lower lobe medially appears to have been surgically excise d. No additional nodules seen. Postoperative changes of partial right pneumonectomy. No sizable pleur al effusion is seen. MEDIASTINUM/ABDOUL: Thoracic aorta is of normal caliber with limited evaluation given lack of contrast . The heart is not enlarged. No evidence for mediastinal mass. No lymph nodes greater than 1cm. UPPER ABDOMEN: No significant abnormality is seen. OTHER: No significant other abnormality. IMPRESSION: 1. There is a new pleural-based soft tissue mass left lower lobe with extension into the chest wall and subcutaneous region of the back. Soft tissue mass measures approximately 7.3 x 4.1 cm and demonst rates mild rib destruction of left rib #9. 2. Enlarging left lower lobe pulmonary nodule measuring 1.5 cm.
== END | disposition home or self-care (01) ==
LOC: RADCTMAIN 15:21
PROVIDERS: ATTEND Family Medicine
DX: R91.8 Other nonspecific abnormal finding of lung field (principal)
CPT/HCPCS: 71250

== ENCOUNTER → 2022-04-25 | Outpatient (CLI) | payer MEDICARE, OTHER ==
--- NOTE | 2022-04-25 17:29 | CT ---
EXAMINATION TYPE: CT chest wo con DATE OF EXAM: 04/25/2022 COMPARISON: 04/08/2022 HISTORY: SOB. Hx of Lung CA and pleural effusion CT DLP: 443.40 mGycm Automated exposure control for dose reduction was used. Images obtained from the thoracic inlet to the diaphragm with no contrast. There is some coarse linear density at the lung bases. There is mild pleural thickening. There is michael arent previous surgery left lung base. Heart size is normal. No pericardial effusion. Thoracic aorta is atheromatous. No mediastinal adenopathy. There are no hilar masses. There is a rounded low-density mass in the subcutaneous fat on the left posterior lower chest that measures 4 cm in diameter and co uld be a chronic hematoma. The thoracic spine is intact. No compression fracture. Sternum is intact. The mediastinum is deviated slightly to the right side consistent with partial right pneumonectomy. IMPRESSION: Scarring and atelectasis and pleural thickening left lung base which is similar to last exam. No incr easing pulmonary density. Chronic subcutaneous mass left posterior chest unchanged. Tumor not exclude d. Previous surgery with volume loss right hemithorax unchanged
== END | disposition home or self-care (01) ==
LOC: RADCTMAIN 16:41
PROVIDERS: ATTEND Family Medicine
DX: J98.11 Atelectasis (principal); J98.4 Other disorders of lung
CPT/HCPCS: 71250

== ENCOUNTER 2022-10-15 19:33 | Inpatient (IN) | payer MEDICARE, OTHER ==
[2022-10-15] MEDS ORDERED: SODIUM CHLORIDE 0.9% 1,000 ML IV STA (19:50)
--- NOTE | 2022-10-15 20:13 | ED ---
General Adult HPI - General Chief complaint: Dizziness Stated complaint: HTN,sent by PCP Time Seen by Provider: 10/15/22 19:48 Source: patient Mode of arrival: wheelchair Limitations: no limitations - History of Present Illness Initial comments: Patient is an 82-year-old female presented to the emergency room with her son with complaints of dizziness which is worse upon standing ongoing intermittently over the last several days but worsening symptoms today. She also reports an increase in chronic shortness of breath with decreased ability to ambulate but she is currently ambulating with a walker and 2 L nasal cannula. She has a history of lung cancer with COPD and chronic hypoxemia on 2 L nasal cannula. She reports that she utilize her pulse ox earlier today in which she obtained a reading in the 50s with an oxygen saturation in the upper 90s consequently her son gave her half a dose of his atenolol which she is not prescribed after she had artery taken her morning medication which includes carvedilol 3.125 mg. Her blood pressure was not checked prior to taking the medication that was not prescribed to her. She reports that the medication did help with palpitations that she was feeling at that time. Despite continued sli ghtly elevated heart rate she denies any palpitations at this time. At rest and laying down she denies any dizziness or shortness of breath worse than her baseline shortness of breath. She denies any chest pain, sinus pressure, headache, focal neurological deficits, weakness, abdominal pain, nausea, vomiting, diarrhea, fevers or chills in addition to her history as stated above she has past medical history significant for CAD, asthma, hypertension, hyperlipidemia and recurrent pleural effusions. - Related Data Home Medications Medication Instructions Recorded Confirmed ALPRAZolam [Xanax] 0.5 mg PO TID PRN 03/19/14 10/15/22 Montelukast [Singulair] 10 mg PO DAILY 09/15/17 10/15/22 Albuterol Inhaler [Ventolin Hfa 1 puff INHALATION RT-BID PRN 10/30/17 10/15/22 Inhaler] carvediloL [Coreg] 3.125 mg PO BID 10/30/17 10/15/22 Ipratropium Nebulized [Atrovent 0.5 mg INHALATION RT-QID PRN 03/26/18 10/15/22 Nebulized 0.2 MG/ML] Potassium Chloride [Klor-Con 10 ER] 10 meq PO DAILY 03/26/18 10/15/22 Aspirin [Adult Low Dose Aspirin EC] 81 mg PO DAILY 04/27/21 10/15/22 Cholecalciferol [Vitamin D3 (25 25 mcg PO DAILY 04/27/21 10/15/22 Mcg = 1000 Iu)] Famotidine [Pepcid] 40 mg PO BID 04/27/21 10/15/22 Furosemide [Lasix] 40 mg PO DAILY 04/27/21 10/15/22 Rosuvastatin [Crestor] 20 mg PO DAILY 04/27/21 10/15/22 HYDROcodone/APAP 10-325MG [Rose[place] 1 tab PO TID 10/15/22 10/15/22 10-325] Nystatin 100,000Unit/gm Cream 1 applic TOPICAL BID PRN 10/15/22 10/15/22 [Mycostatin Cream] Previous Rx's Medication Instructions Recorded Clopidogrel [Plavix] 75 mg PO DAILY #90 tab 01/01/18 Allergies Allergy/AdvReac Type Severity Reaction Status Date / Time Penicillins Allergy Rash/Hives Verified 10/15/22 21:21 Review of Systems ROS Statement: Those systems with pertinent positive or pertinent negative responses have been documented in the HPI. ROS Other: All systems not noted in ROS Statement are negative. Past Medical History Past Medical History: Asthma, Coronary Artery Disease (CAD), Cancer, COPD, Hyperlipidemia, Hypertension, Osteoarthritis (OA), Pneumonia, Respiratory Disorder Additional Past Medical History / Comment(s): Adenocarcinoma of the right upper lobe, history of recurrent right-sided pleural effusion requiring multiple thoracentesis, coronary artery disease, chronic hypoxic respiratory failure maintained on O2. History of Any Multi-Drug Resistant Organisms: None Reported Past Surgical History: Appendectomy, Bowel Resection, Ear Surgery, Heart Catheterization With Stent, Hernia Repair, Hysterectomy, Tonsillectomy Additional Past Surgical History / Comment(s): Colon/bowel surgery done in her 30's-21 inches removed, bilateral cataracts removed, bilateral laser eye surgery, hemorroidectomy, hiatal hernia, robotic rt upper lobectomy w/mediastinal lymph node dissection, 1 cardiac stent Past Anesthesia/Blood Transfusion Reactions: No Reported Reaction Additional Past Anesthesia/Blood Transfusion Reaction / Comment(s): no hx blood transfusion Date of Last Stent Placement:: 01/01/18 Past Psychological History: No Psychological Hx Reported Smoking Status: Former smoker - Past Family History Father Family Medical History: CVA/TIA, Myocardial Infarction ([place]) Mother Family Medical History: Cancer Additional Family Medical History / Comment(s): bowel cancer General Exam - General Exam Comments Initial Comments: GENERAL: No acute distress, well developed, well nourished. obese. HEENT: Normocephalic, atraumatic. Pupils equal, round, reactive to light. Moist mucous membranes. LUNGS: No respiratory distress. diminished bibasilar with occasional upper expiratory wheeze. 2 L nasal cannula intact. Occasional purse lipped breathing. No other no use of accessory muscles. HEART: M ild tachycardia,Regular rhythm without murmur, rub, or gallop. ABDOMEN: Normal bowel sounds. Soft, non-tender, non-distended. BACK: Normal inspection. EXTREMITIES: Large lower extremities without edema. No tenderness. Moves all extremities. NEUROLOGIC: Alert & oriented x 3. CN II-XII grossly intact. PSYCHIATRIC: Normal affect and behavior. DERMATOLOGIC: Skin intact, without rashes or lesions noted. Limitations: no limitations Course Vital Signs 10/15/22 10/15/22 19:37 22:08 Temperature 98 F 97.7 F Pulse Rate 120 H 115 H Respiratory 20 17 Rate Blood Pressure 92/52 101/75 O2 Sat by Pulse 98 97 Oximetry Medical Decision Making - Medical Decision Making Was pt. sent in by a medical professional or institution ([facility], PERSON INVESTIGATOR, urgent care, hospital, or detention...) When possible be specific @ -Patient reports was sent in by PCP. Did you speak to anyone other than the patient for history (EMS, parent, family, police, friend...)? What history was obtained from this source @ -Son Did you review nursing and triage notes (agree or disagree)? Why? @ -I reviewed and agree with nursing and triage notes Were old charts reviewed (outside hosp., previous admission, EMS record, old EKG, old radiological studies, urgent care reports/EKG's, detention records)? Report findings @ -Yes, I reviewed computed tomography scan from August 2022 and last EKG on file from February 2022 Differential Diagnosis (chest pain, altered mental status, abdominal pain women, abdominal pain men, vaginal bleeding, weakness, fever, dyspnea, syncope, headache, dizziness, GI bleed, back pain, seizure, CVA, palpatations, mental health, musculoskeletal)? @ -Differential Dizziness: Benign paroxysmal positional Vertigo, Menieres disease, otitis media, acoustic neuroma, vertebrobasilar insufficiency, cerebellar stroke, encephalitis, hypovolemic, arrhythmia, coronary artery syndrome, anemia, this is not meant to be an all-inclusive list EKG interpreted by me (3pts min.). @ -Sinus tachycardia, ventricular rate 122 bpm, MD interval 160 ms, QR sabianist 57 ms, QT/QTC 303/337 ms, PRT axes 70, 60, 52 X-rays interpreted by me (1pt min.). @ -Chest x-ray two-view: increased interstitial markings no overt consolidation or infiltrate noted. No evidence of pleural effusion. CT interpreted by me (1pt min.). @ -CT chest and general: Negative for pulmonary emboli. COPD emphysema changes noted. No evidence of effusion. Moderate hypertrophic cardiomyopathy. Per radiologist report concern for congestive heart failure with dye reflux into the IVC. U/S interpreted by me (1pt. min.). @ -None done What testing was considered but not performed or refused? (CT, X-rays, U/S, labs)? Why? @ -None What meds were considered but not given or refused? Why? @ -None Did you discuss the management of the patient with other professionals (professionals i.e. , PA, PERSON INVESTIGATOR, lab, RT, psych nurse, psychologist social, lock assembler, teacher, unemployment insurance hearing officer, manager rn case)? Give summary @ -No Was smoking cessation discussed for >3mins.? @ -No Was critical care preformed (if so, how long)? @ -No Were there social determinants of health that impacted care today? How? (Ho melessness, low income, unemployed, alcoholism, drug addiction, transportation, low edu. Level, literacy, decrease access to med. care, fpc, rehab)? @ -No Was there de-escalation of care discussed even if they declined (Discuss DNR or withdrawal of care, Hospice)? DNR status @ -No What co-morbidities impacted this encounter? (DM, HTN, Smoking, COPD, CAD, Cancer, CVA, ARF, Chemo, Hep., AIDS, mental health diagnosis, sleep apnea, morbid obesity)? @ -Lung cancer, COPD, CAD Was patient admitted / discharged? Hospital course, mention meds given and route, prescriptions, significant lab abnormalities, going to OR and other pertinent info. @ -82-year-old female presenting to the emergency room with persistent positional dizziness and increased shortness of breath with exertion along with palpitations earlier in the day. Will start workup for dizziness with EKG, chest x-ray, CBC, CMP, lactic acid, coags and troponin. No indication for medication administration at this time. Will continue to liters nasal cannula per home medications given good oxygenation at this time. Laboratory studies CBC unremarkable coags normal CMP demonstrates elevated gl ucose 135 elevated carbon dioxide 32 otherwise no abnormalities. Renal function normal. Lactic acid normal 1.7 troponin negative. EKG demonstrates sinus tachycardia with heart rate in the 120s. Chest x-ray demonstrates increased interstitial markings with no acute changes. Given tachycardia with dizziness and increased shortness of breath concern for pulmonary emboli will proceed with CT chest angiogram. Will give 1 L fluid bolus and monitor heart rate will defer further other rate control medications at this time. computed tomography scan negative for pulmonary emboli. Note of moderate cardi omyopathy hypertrophic with concerns for congestive heart failure proBNP added to laboratory studies. Tachycardia is slightly improved after IV hydration will hold further IV hydration and diuresis. Case discussed with patient's primary care provider Dr. Saul whom recommendation for admission was given. He is accepting of admission advised to start steroids for COPD status along with cardiology consult. Prior computed tomography scan will order 2-D echo as well as cardiology consult. Will admit patient in stable condition to medical surgical unit for tachycardia and dyspnea with exertion to Dr. Cruz's service with cardiology consult. Undiagnosed new problem with uncertain prognosis? @ -No Drug Therapy requiring intensive monitoring for toxicity (Heparin, Nitro, Insulin, Cardizem)? @ -No Were any procedures done? @ -No Diagnosis/symptom? @ -tachycardia Acute, or Chronic, or Acute on Chronic? @ -Acute Uncomplicated (without systemic symptoms) or Complicated (systemic symptoms)? @ -complicated Side effects of treatment? @ -No Exacerbation, Progression, or Severe Exacerbation? @ -No Poses a threat to life or bodily function? How? (Chest pain, [place], [place], pneumonia, PE, COPD, DKA, ARF, appy, cholecystitis, CVA, Diverticulitis, Homicidal, Suicidal, threat to staff... and all critical care pts) @ -yes Diagnosis/symptom? @ -dyspnea with exertion Acute, or Chronic, or Acute on Chronic? @ -Acute Uncomplicated (without systemic symptoms) or Complicated (systemic symptoms)? @ -Complicated Side effects of treatment? @ -None Exacerbation, Progression, or Severe Exacerbation] @ -No Poses a threat to life or bodily function? @ -yes Case discussed with Dr. Steel. - Lab Data Result diagrams: 10/15/22 20:27 10/15/22 20:27 Lab Results 10/15/22 10/15/22 10/15/22 Range/Units 20:27 20:27 20:27 WBC 8.0 (3.8-10.6) k/uL RBC 4.31 (3.80-5.40) m/uL Hgb 12.1 (11.4-16.0) gm/dL Hct 37.7 (34.0-46.0) % MCV 87.4 (80.0-100.0) fL MCH 28.1 (25.0-35.0) pg MCHC 32.1 (31.0-37.0) g/dL RDW 14.3 (11.5-15.5) % Plt Count 289 (150-450) k/uL MPV 7.7 Neutrophils % 67 % Lymphocytes % 20 % Monocytes % 5 % Eosinophils % 6 % Basophils % 0 % Neutrophils # 5.4 (1.3-7.7) k/uL Lymphocytes # 1.6 (1.0-4.8) k/uL Monocytes # 0.4 (0-1.0) k/uL Eosinophils # 0.5 (0-0.7) k/uL Basophils # 0.0 (0-0.2) k/uL PT 10.4 (9.0-12.0) sec INR 1.0 (<1.2) Sodium 137 (137-145) mmol/L Potassium 4.7 (3.5-5.1) mmol/L Chloride 99 (98-107) mmol/L Carbon Dioxide 32 H (22-30) mmol/L Anion Gap 6 mmol/L BUN 17 (7-17) mg/dL Creatinine 0.93 (0.52-1.04) mg/dL Est GFR (CKD-EPI)AfAm 68 (>60 ml/min/1.73 sqM) Est GFR (CKD-EPI)NonAf 59 (>60 ml/min/1.73 sqM) Glucose 135 H (74-99) mg/dL Plasma Lactic Acid Zacarias (0.7-2.0) mmol/L Calcium 9.0 (8.4-10.2) mg/dL Total Bilirubin 0.8 (0.2-1.3) mg/dL AST 24 (14-36) U/L ALT 20 (4-34) U/L Alkaline Phosphatase 88 (38-126) U/L Troponin I (0.000-0.034) ng/mL NT-Pro-B Natriuret Pep pg/mL Total Protein 7.3 (6.3-8.2) g/dL Albumin 4.1 (3.5-5.0) g/dL 10/15/22 10/15/22 10/15/22 Range/Units 20:27 20:27 20:27 WBC (3.8-10.6) k/uL RBC (3.80-5.40) m/uL Hgb (11.4-16.0) gm/dL Hct (34.0-46.0) % MCV (80.0-100.0) fL MCH (25.0-35.0) pg MCHC (31.0-37.0) g/dL RDW (11.5-15.5) % Plt Count (150-450) k/uL MPV Neutrophils % % Lymphocytes % % Monocytes % % Eosinophils % % Basophils % % Neutrophils # (1.3-7.7) k/uL Lymphocytes # (1.0-4.8) k/uL Monocytes # (0-1.0) k/uL Eosinophils # (0-0.7) k/uL Basophils # (0-0.2) k/uL PT (9.0-12.0) sec INR (<1.2) Sodium (137-145) mmol/L Potassium (3.5-5.1) mmol/L Chloride (98-107) mmol/L Carbon Dioxide (22-30) mmol/L Anion Gap mmol/L BUN (7-17) mg/dL Creatinine (0.52-1.04) mg/dL Est GFR (CKD-EPI)AfAm (>60 ml/min/1.73 sqM) Est GFR (CKD-EPI)NonAf (>60 ml/min/1.73 sqM) Glucose (74-99) mg/dL Plasma Lactic Acid Zacarias 1.7 (0.7-2.0) mmol/L Calcium (8.4-10.2) mg/dL Total Bilirubin (0.2-1.3) mg/dL AST (14-36) U/L ALT (4-34) U/L Alkaline Phosphatase (38-126) U/L Troponin I 0.033 (0.000-0.034) ng/mL NT-Pro-B Natriuret Pep 1790 pg/mL Total Protein (6.3-8.2) g/dL Albumin (3.5-5.0) g/dL - Radiology Data Radiology results: report reviewed, image reviewed Disposition Clinical Impression: Tachycardia, Cardiomyopathy, COPD exacerbation Disposition: ADMITTED IP TO THIS HOSP Condition: Stable Is patient prescribed a controlled substance at d/c from ED?: No Referrals: Billy Saul MD [Primary Care Provider] - 1-2 days Time of Disposition: 23:01
[2022-10-15 20:34] LABS: Basophils % (A) 0 %; Eosinophils # (A) 0.5 k/uL (0-0.7); Eosinophils % (A) 6 %; HCT 37.7 % (34.0-46.0); HGB 12.1 gm/dL (11.4-16.0); Lymphocytes # (A) 1.6 k/uL (1.0-4.8); Lymphocytes % (A) 20 %; MCH 28.1 pg (25.0-35.0); MCHC 32.1 g/dL (31.0-37.0); MCV 87.4 fL (80.0-100.0); Mean Platelet Volume 7.7; Monocytes # (A) 0.4 k/uL (0-1.0); Monocytes % (A) 5 %; Neutrophils # (A) 5.4 k/uL (1.3-7.7); Neutrophils % (A) 67 %; Platelet Count 289 k/uL (150-450); RBC 4.31 m/uL (3.80-5.40); RDW 14.3 % (11.5-15.5)
[2022-10-15 20:44] LABS: Albumin 4.1 g/dL (3.5-5.0); Potassium 4.7 mmol/L (3.5-5.1); Total Bilirubin 0.8 mg/dL (0.2-1.3); Total Protein 7.3 g/dL (6.3-8.2)
[2022-10-15 20:47] LABS: Prothrombin Time 10.4 sec (9.0-12.0)
--- NOTE | 2022-10-15 21:14 | XR ---
EXAMINATION TYPE: XR chest 2V DATE OF EXAM: 10/15/2022 9:00 PM COMPARISON: Chest radiographs from 02/26/2022, CT 08/25/2022 TECHNIQUE: XR chest 2V Frontal and lateral views of the chest. CLINICAL INDICATION:Female, 82 years old with history of shortness of breath; FINDINGS: Lungs/Pleura: Prominent interstitial lung markings are seen scattered throughout the lungs. No eviden ce of focal consolidation, pneumothorax or pleural effusion. Pulmonary vascularity: Unremarkable. Heart/mediastinum: Cardiomediastinal silhouette is prominent in size. Musculoskeletal: No acute osseous pathology. IMPRESSION: 1. Chronic changes without acute pulmonary process. No significant change from prior. 2. COPD changes.
--- NOTE | 2022-10-15 22:14 | CT ---
EXAMINATION TYPE: CT chest angio for PE CT DLP: 494.1 mGycm, Automated exposure control for dose reduction was used. DATE OF EXAM: 10/15/2022 9:58 PM COMPARISON: Chest radiograph from same day. Multiple CTs of the chest with most recent on 08/25/2022 CLINICAL INDICATION:Female, 82 years old with history of shortness of breath. Tachycardia; SOB TECHNIQUE/CONTRAST: CTA scan of the thorax is performed with IV Contrast, patient injected with 80 mL of Isovue 370, pulm onary embolism protocol. MIP images are created and reviewed these are created on a separate worksta tion.. FINDINGS: Motion artifact limits evaluation. Pulmonary Artery: There is no evidence for a central filling defect within the pulmonary vasculature to suggest acute pulmonary embolism. Limited evaluation of the segmental and subsegmental branches se condary to bolus timing. The pulmonary artery is of normal size. There is some mildly dilated bilater al main pulmonary arteries. Lungs/Pleura: Moderate emphysema changes are seen throughout the lungs. Scattered atelectasis/scarrin g throughout the lungs most pronounced in the lung bases. No evidence of focal consolidation, pleural effusion or pneumothorax. Postsurgical changes of the left lung base. Airway: Large airways are patent. Heart: Heart is enlarged for size. There is moderate coronary artery calcifications. The left ventric le walter are thickened measuring up to 18 mm in the interventricular septum and posterior left latera l wall measuring 20 mm. Vasculature: Moderate atherosclerotic calcifications are present throughout the aorta and its branche s. Reflux of contrast into the inferior vena cava. Mediastinum: No gross evidence of adenopathy. Musculoskeletal: Mild degenerative disc disease changes are present throughout the thoracolumbar spin e. Soft Tissues: Unremarkable. Lower neck: No significant findings. Upper Abdomen: No significant findings. IMPRESSION: 1. No evidence of central pulmonary embolism. Limited evaluation of the segmental and subsegmental br anches. 2. Moderate cardiomegaly with hypertrophic cardiomyopathy suggested and signs of congestive heart norbert lure with reflux of contrast into the IVC. Further evaluation with echocardiogram is recommended. 3. Moderate emphysema changes. 4. Postsurgical changes of the left lung base with suture in place
[2022-10-15] MEDS ORDERED: NALOXONE 0.4 MG/ML 1 ML VIAL IV PRN (22:29)
[2022-10-15] MEDS ORDERED: DEXTROSE 50% SYRINGE 50 ML IVP PRN ×2 (22:31)
[2022-10-15] MEDS ORDERED: INSULIN ASPART (NovoLOG) 100 UNIT/ML VIAL SQ SCH (22:45)
[2022-10-15] MEDS: methylPREDNISolone SOD SUCCI 125 MG/2 ML VIAL IV SCH (23:12)
[2022-10-16 01:03] LABS: Appearance,Urine Clear (Clear); Bacteria,Urine Rare /hpf; Bilirubin,Urine Negative (Negative); Blood,Urine Negative (Negative); Color,Urine Light Yellow; Glucose,Urine (UA) Negative (Negative); Hyaline Casts,Urine 7 /lpf (0-2); Ketones,Urine Negative (Negative); Leukocyte Esterase,Urine Large (Negative); Nitrite,Urine Negative (Negative); Protein,Urine Negative (Negative); RBC,Urine 1 /hpf (0-5); Squamous Epithelial Cell,Urine 1 /hpf (0-4); Urobilinogen,Urine <2.0 mg/dL (<2.0); WBC,Urine 27 /hpf (0-5)
[2022-10-16] MEDS: methylPREDNISolone SOD SUCCI 125 MG/2 ML VIAL IV SCH (07:24)
[2022-10-16] MEDS: METOPROLOL SUCCINATE (ER) 50 MG TAB.ER.24H PO SCH (09:02)
--- NOTE | 2022-10-16 11:37 | P.CNPUL ---
History of Present Illness Consult date: 10/16/22 Reason for consult: dyspnea History of present illness: This is a 10-year-old female patient who presented yesterday to the emergency department with complaints of dizziness worse whenever she stands up and some chronic ongoing shortness of breath. The patient states that her shortness of breath is chronic and is progressively getting worse over the past one year at least. She is currently ambulating with the help of a walker and she has oxygen at home at 2 L nasal cannula. The patient is known to me. My last evaluation with her was during her most recent hospitalization back in February 2022 and at that time the patient underwent a wedge resection of the left lower lobe mass which turned out to be a early stage lung cancer and the patient had T2 lesion and no lymph nodes were available for further staging. The patient currently is on oxygen at 2 L per minute nasal cannula. Heart rate was slightly elevated. She denies having any chest pain. She was seen in the emergency department and she was hospitalized for further evaluation management. No nausea. No vomiting. No diarrhea. No abdominal pain. She is known to have COPD with an FEV1 of 54% of predicted based on the previous spirometry that was done in my office back in 2018. 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 Note that note that the patient's initial right-sided lung surgery was [place] by development of recurrent right-sided pleural effusion, requiring frequent thoracentesis. Is post right upper lobe resection. During this current admission, the patient underwent blood work that showed a hemoglobin of 12, white cell count of 8, BUN is at 70 with a creatinine of 0.9 his sodium level is at 137. LFTs are normal. UA is negative. CT of the chest was done and showed no evidence of any pulmonary embolism. There was cardiomegaly. There was also a hypertrophic myopathy suggestive of underlying CHF. Mother emphysema. Limited atelectatic changes in lung bases. No other acute abnormalities are noted. No lung masses. No evidence of any focal consolidation. Postsurgical changes are seen. Review of Systems Constitutional: Reports fatigue, Reports weakness, Reports weight gain Eyes: denies as per HPI, denies blurred vision, denies bulging eye, denies decreased vision, denies diplopia, denies discharge, denies dry eye, denies irritation, denies itching, denies pain, denies photophobia, denies loss of peripheral vision, denies loss of vision, denies tunnel vision/blind spots Ears: deny: decreased hearing, ear discharge, earache, tinnitus Ears, nose, mouth and throat: Reports as per HPI Breasts: absent: as per HPI, change in shape, gynecomastia, masses, nipple discharge, pain, skin changes, swelling Cardiovascular: Reports decreased exercise tolerance, Reports dyspnea on exertion Respiratory: Reports cough, Reports dyspnea, Reports home oxygen Gastrointestinal: Reports as per HPI Genitourinary: Reports as per HPI Menstruation: Reports as per HPI Musculoskeletal: Reports as per HPI Musculoskeletal: absent: ankle pain, ankle stiffness, ankle swelling Integumentary: Reports as per HPI Psychiatric: Reports as per HPI Endocrine: Reports as per HPI Hematologic/Lymphatic: Reports as per HPI Allergic/Immunologic: Reports as per HPI Past Medical History Past Medical History: Asthma, Coronary Artery Disease (CAD), Cancer, COPD, Hyperlipidemia, Hypertension, Osteoarthritis (OA), Pneumonia, Respiratory Disorder Additional Past Medical History / Comment(s): Adenocarcinoma of the right upper lobe, history of recurrent right-sided pleural effusion requiring multiple thor acentesis, coronary artery disease, chronic hypoxic respiratory failure maintained on O2, squamous cell lung cn=ancer of the LLL. History of Any Multi-Drug Resistant Organisms: None Reported Past Surgical History: Appendectomy, Bowel Resection, Ear Surgery, Heart Catheterization With Stent, Hernia Repair, Hysterectomy, Tonsillectomy Additional Past Surgical History / Comment(s): Colon/bowel surgery done in her 30's-21 inches removed, bilateral cataracts removed, bilateral laser eye surgery, hemorroidectomy, hiatal hernia, robotic rt upper lobectomy w/mediastinal lymph node dissection, 1 cardiac stent Past Anesthesia/Blood Transfusion Reactions: No Reported Reaction Additional Past Anesthesia/Blood Transfusion Reaction / Comment(s): no hx blood transfusion Date of Last Stent Placement:: 01/01/18 Past Psychological History: No Psychological Hx Reported Smoking Status: Former smoker - Past Family History Father Family Medical History: CVA/TIA, Myocardial Infarction ([place]) Mother Family Medical History: Cancer Additional Family Medical History / Comment(s): bowel cancer Medications and Allergies Home Medications Medication Instructions Recorded Confirmed Type ALPRAZolam [Xanax] 0.5 mg PO TID PRN 03/19/14 10/15/22 History Montelukast [Singulair] 10 mg PO DAILY 09/15/17 10/15/22 History Albuterol Inhaler [Ventolin Hfa 1 puff INHALATION RT-BID PRN 10/30/17 10/15/22 History Inhaler] carvediloL [Coreg] 3.125 mg PO BID 10/30/17 10/15/22 History Clopidogrel [Plavix] 75 mg PO DAILY #90 tab 01/01/18 10/15/22 Rx Ipratropium Nebulized [Atrovent 0.5 mg INHALATION RT-QID PRN 03/26/18 10/15/22 History Nebulized 0.2 MG/ML] Potassium Chloride [Klor-Con 10 ER] 10 meq PO DAILY 03/26/18 10/15/22 History Aspirin [Adult Low Dose Aspirin EC] 81 mg PO DAILY 04/27/21 10/15/22 History Cholecalciferol [Vitamin D3 (25 25 mcg PO DAILY 04/27/21 10/15/22 History Mcg = 1000 Iu)] Famotidine [Pepcid] 40 mg PO BID 04/27/21 10/15/22 History Furosemide [Lasix] 40 mg PO DAILY 04/27/21 10/15/22 History Rosuvastatin [Crestor] 20 mg PO DAILY 04/27/21 10/15/22 History HYDROcodone/APAP 10-325MG [[place] 1 tab PO TID 10/15/22 10/15/22 History 10-325] Nystatin 100,000Unit/gm Cream 1 applic TOPICAL BID PRN 10/15/22 10/15/22 History [Mycostatin Cream] Allergies Allergy/AdvReac Type Severity Reaction Status Date / Time Penicillins Allergy Rash/Hives Verified 10/15/22 21:21 Physical Exam Vitals: Vital Signs Temp Pulse Resp BP Pulse Ox 10/16/22 09:05 78 24 145/75 96 10/16/22 07:27 66 22 132/56 96 10/16/22 05:30 120 H 22 121/92 98 10/16/22 00:10 120 H 20 110/72 99 10/15/22 23:15 118 H 22 102/68 98 10/15/22 22:08 97.7 F 115 H 17 101/75 97 10/15/22 19:37 98 F 120 H 20 92/52 98 Intake and Output 10/15/22 10/16/22 10/16/22 22:59 06:59 14:59 Other: Weight 83.461 kg CONSTITUTIONAL: Appears comfortable, cooperative, no acute distress, currently on 2 L of oxygen by nasal cannula RESPIRATORY: Lungs sounds diminished bilaterally. Respirations even, nonlabored. CARDIOVASCULAR: S1, S2 present. Regular rate and rhythm, sinus rhythm on telemetry. Palpable peripheral pulses bilaterally. No edema present. No calf pain or tenderness noted. SCDs present. GASTROINTESTINAL: Abdomen soft, nontender, nondistended. Active bowel sounds present 4 quadrants. Tolerating diet. GENITOURINARY: Straight cathed for 450 mL yellow urine last night INTEGUMENTARY: Skin is warm and dry with evidence of good perfusion. Thoracic incisions well approximated and covered with dry intact dressing. NEUROLOGIC: Cranial nerves II through XII intact MUSKULOSKELETAL: Able to move all extremities, strength equal bilaterally, gait normal PSYCHIATRIC: Alert and oriented to person place and time, appropriate affect, intact judgment and insight Results - Laboratory Findings CBC and BMP: 10/15/22 20:27 10/15/22 20:27 PT/INR, D-dimer PT 10.4 sec (9.0-12.0) 10/15/22 20:27 INR 1.0 (<1.2) 10/15/22 20:27 Abnormal lab findings: Abnormal Labs 10/15/22 10/16/22 20:27 00:07 Carbon Dioxide 32 H Glucose 135 H Ur Specific [place] 1.050 H Ur Leukocyte Esterase Large H Urine WBC 27 H Urine Bacteria Rare H Hyaline Casts 7 H - Diagnostic Findings Chest x-ray: image reviewed CT scan - chest: image reviewed Assessment and Plan Plan: Dizziness, likely due to underlying paroxysmal A. fib, current rhythm is sinus. Hemodynamically stable Chronic hypoxic respiratory failure currently on oxygen 2 L minute nasal cannula COPD, severe, currently inactive and stable with chronic exertional dyspnea Squamous cell carcinoma of the left lower lobe post wedge resection. The patient had a 1.2 cm mass in left lower lobe underwent wedge resection back in February 2022. Subsequent CAT scan of the chest from this current admission sh owed no evidence of any tumor recurrence Early stage adenocarcinoma of the lung. The patient had a Previous right upper lobe resection for adenocarcinoma, stage T Ib N0 M0 History of recurrent right-sided pleural effusion requiring multiple thoracentesis, negative cytology, fluids recovered Coronary artery disease Hyperlipidemia Environmental ALLERGIES History of smoking Obesity with a BMI of 36.6 Osteoarthritis Hypertension Plan Albuterol neb 3-4 times a day No need for systemic steroids Cardiology consultation Reassured the patient results of the CT angiogram of the chest that showed no evidence of any tumor recurrence or pneumonia Resume all medications Keep oxygen at 2 L/m nasal cannula We'll continue to follow
[2022-10-16] MEDS: FAMOTIDINE 20 MG TAB PO SCH (12:19)
[2022-10-16] MEDS: CLOPIDOGREL 75 MG TAB PO SCH (12:19)
[2022-10-16] MEDS: FUROSEMIDE 40 MG TAB PO SCH (12:19)
--- NOTE | 2022-10-16 12:40 | P.CRDCN ---
History of Present Illness Consult date: 10/16/22 Reason for Consult (text): Arrhythmia History of present illness: The patient is an 82-year-old female with past medical history of coronary art vianey disease with prior stenting, hypertension, hyperlipidemia, and lung cancer, presented to the emergency room with increased shortness of breath. The patient recently underwent lung mass resection with Dr. Mix. She has a known history of COPD and adenocarcinoma. Review of past records show that she did undergo coronary stenting with Dr. Cai, however she does not follow in the office. DIAGNOSTICS: EKG shows AV leonora reentrant tachycardia Chest x-ray shows no acute cardiopulmonary process with underlying COPD Computed tomography scan of the chest shows no evidence of pulmonary embolism. Scattered atelectasis and scarring throughout the lungs, which are more pronounced in the bases. No focal consolidation. Lab data: WBC 8.0, hemoglobin 12.1, hematocrit 37.7, platelet 289, sodium 137, potassium 4.7, BUN 17, creatinine 0.93, AST 24, ALT 20, troponin 0.03, BNP 1790, TSH 2.6 REVIEW OF SYSTEMS: No fever or chills. No cough or expectoration. No diaphoresis. Patient denies headache, dizziness, blurred vision, double vision. Patient denies any stomach discomfort. No nausea, vomiting. No hematochezia. No hematemesis. Denies any black stools or blood in his stools. Denies dysuria or hematuria. No muscle weakness or numbness. Positive for shortness of breath. Negative for chest pain or chest pressure. PHYSICAL EXAMINATION: This is a 82-year-old female in no apparent distress at the time of my examination. HEENT: Head is atraumatic, normocephalic. Pupils are equal, round. Sclerae anicteric. Conjunctivae are clear. Mucous membranes of the mouth are moist. Neck is supple. There is no jugular venous distention. No carotid bruit is heard. CHEST EXAMINATION: Lungs are severely diminished on the right to auscultation. No chest wall tenderness is noted on palpation or with deep breathing. Bilateral inspiratory and expiratory wheezes. HEART EXAMINATION: Heart regular rate and rhythm. S1, S2 heard. No murmurs, gallops or rub. ABDOMEN: Soft, nontender. Bowel sounds are heard. No organomegaly noted. EXTREMITIES: 2+ peripheral pulses with no evidence of peripheral edema and no calf tenderness noted. NEUROLOGIC EXAMINATION: Patient is awake, alert and oriented x3. FINAL ASSESSMENT AND PLAN: AV leonora reentrant tachycardia Elevated BNP History of coronary artery disease with prior stenting History of lung cancer Hypertension Hyperlipidemia PLAN: Start beta omar for arrhythmia Recommend supportive treatment for lung disease Echocardiogram pending Further recommendations to be based upon clinical course I am dictating on behalf of Dr Niko Greenwood's history/physical and assessment/plan. Past Medical History Past Medical History: Asthma, Coronary Artery Disease (CAD), Cancer, COPD, Hyperlipidemia, Hypertension, Osteoarthritis (OA), Pneumonia, Respiratory Disorder Additional Past Medical History / Comment(s): Adenocarcinoma of the right upper lobe, history of recurrent right-sided pleural effusion requiring multiple thoracentesis, coronary artery disease, chronic hypoxic respiratory failure maintained on O2, squamous cell lung cn=ancer of the LLL. History of Any Multi-Drug Resistant Organisms: None Reported Past Surgical History: Appendectomy, Bowel Resection, Ear Surgery, Heart Catheterization With Stent, Hernia Repair, Hysterectomy, Tonsillectomy Additional Past Surgical History / Comment(s): Colon/bowel surgery done in her 30's-21 inches removed, bilateral cataracts removed, bilateral laser eye surgery, hemorroidectomy, hiatal hernia, robotic rt upper lobectomy w/mediastinal lymph node dissection, 1 cardiac stent Past Anesthesia/Blood Transfusion Reactions: No Reported Reaction Additional Past Anesthesia/Blood Transfusion Reaction / Comment(s): no hx blood transfusion Date of Last Stent Placement:: 01/01/18 Past Psychological History: No Psychological Hx Reported Smoking Status: Former smoker - Past Family History Father Family Medical History: CVA/TIA, Myocardial Infarction ([place]) Mother Family Medical History: Cancer Additional Family Medical History / Comment(s): bowel cancer Medications and Allergies Home Medications Medication Instructions Recorded Confirmed Type ALPRAZolam [Xanax] 0.5 mg PO TID PRN 03/19/14 10/15/22 History Montelukast [Singulair] 10 mg PO DAILY 09/15/17 10/15/22 History Albuterol Inhaler [Ventolin Hfa 1 puff INHALATION RT-BID PRN 10/30/17 10/15/22 History Inhaler] carvediloL [Coreg] 3.125 mg PO BID 10/30/17 10/15/22 History Clopidogrel [Plavix] 75 mg PO DAILY #90 tab 01/01/18 10/15/22 Rx Ipratropium Nebulized [Atrovent 0.5 mg INHALATION RT-QID PRN 03/26/18 10/15/22 History Nebulized 0.2 MG/ML] Potassium Chloride [Klor-Con 10 ER] 10 meq PO DAILY 03/26/18 10/15/22 History Aspirin [Adult Low Dose Aspirin EC] 81 mg PO DAILY 04/27/21 10/15/22 History Cholecalciferol [Vitamin D3 (25 25 mcg PO DAILY 04/27/21 10/15/22 History Mcg = 1000 Iu)] Famotidine [Pepcid] 40 mg PO BID 04/27/21 10/15/22 History Furosemide [Lasix] 40 mg PO DAILY 04/27/21 10/15/22 History Rosuvastatin [Crestor] 20 mg PO DAILY 04/27/21 10/15/22 History HYDROcodone/APAP 10-325MG [[place] 1 tab PO TID 10/15/22 10/15/22 History 10-325] Nystatin 100,000Unit/gm Cream 1 applic TOPICAL BID PRN 10/15/22 10/15/22 History [Mycostatin Cream] Allergies Allergy/AdvReac Type Severity Reaction Status Date / Time Penicillins Allergy Rash/Hives Verified 10/15/22 21:21 Physical Exam Vitals: Vital Signs Temp Pulse Resp BP Pulse Ox 10/16/22 12:18 97.8 F 69 20 151/74 98 10/16/22 09:05 78 24 145/75 96 10/16/22 07:27 66 22 132/56 96 10/16/22 05:30 120 H 22 121/92 98 10/16/22 00:10 120 H 20 110/72 99 10/15/22 23:15 118 H 22 102/68 98 10/15/22 22:08 97.7 F 115 H 17 101/75 97 10/15/22 19:37 98 F 120 H 20 92/52 98 Intake and Output 10/15/22 10/16/22 10/16/22 22:59 06:59 14:59 Other: Weight 83.461 kg Results 10/15/22 20:27 10/15/22 20:27 Cardiac Enzymes 10/15/22 10/15/22 Range/Units 20:27 20:27 AST 24 (14-36) U/L Troponin I 0.033 (0.000-0.034) ng/mL Coagulation 10/15/22 Range/Units 20:27 PT 10.4 (9.0-12.0) sec CBC 10/15/22 Range/Units 20:27 WBC 8.0 (3.8-10.6) k/uL RBC 4.31 (3.80-5.40) m/uL Hgb 12.1 (11.4-16.0) gm/dL Hct 37.7 (34.0-46.0) % Plt Count 289 (150-450) k/uL Comprehensive Metabolic Panel 10/15/22 Range/Units 20:27 Sodium 137 (137-145) mmol/L Potassium 4.7 (3.5-5.1) mmol/L Chloride 99 (98-107) mmol/L Carbon Dioxide 32 H (22-30) mmol/L BUN 17 (7-17) mg/dL Creatinine 0.93 (0.52-1.04) mg/dL Glucose 135 H (74-99) mg/dL Calcium 9.0 (8.4-10.2) mg/dL AST 24 (14-36) U/L ALT 20 (4-34) U/L Alkaline Phosphatase 88 (38-126) U/L Total Protein 7.3 (6.3-8.2) g/dL Albumin 4.1 (3.5-5.0) g/dL Current Medications Generic Name Dose Route Start Last Admin Trade Name Freq PRN Reason Stop Dose Admin Hydrocodone Bitart/Acetaminophen 1 each 10/16/22 16:00 Hydrocodone/Apap 10-325mg 1 Each Tab PO TID [facility] Albuterol Sulfate 2.5 mg 10/16/22 12:00 Albuterol Nebulized 2.5 Mg/3 Ml INHALATION RT-QID [facility] Aspirin 81 mg 10/17/22 09:00 Aspirin 81 Mg PO DAILY [facility] Clopidogrel Bisulfate 75 mg 10/16/22 11:45 10/16/22 12:19 Clopidogrel 75 Mg Tab PO 75 mg DAILY [facility] Administration Famotidine 20 mg 10/16/22 11:45 10/16/22 12:19 Famotidine 20 Mg Tab PO 20 mg DAILY [facility] Administration Furosemide 40 mg 10/16/22 11:45 10/16/22 12:19 Furosemide 40 Mg Tab PO 40 mg DAILY [facility] Administration Metoprolol Succinate 50 mg 10/16/22 09:00 10/16/22 09:02 Metoprolol Succinate (Er) 50 Mg Tab.Er.24h PO 50 mg DAILY [facility] Administration Naloxone HCl 0.2 mg 10/15/22 22:29 Naloxone 0.4 Mg/Ml 1 Ml Vial IV Q2M PRN Opioid Reversal Intake and Output 10/15/22 10/16/22 10/16/22 22:59 06:59 14:59 Other: Weight 83.461 kg 10/15/22 20:27 10/15/22 20:27
[2022-10-16] MEDS: ALBUTEROL NEBULIZED 2.5 MG/3 ML INHALATION SCH ×3 (12:45→20:19)
[2022-10-16] MEDS: HYDROcodone/APAP 10-325MG 1 EACH TAB PO SCH (15:19)
[2022-10-17] MEDS: HYDROcodone/APAP 10-325MG 1 EACH TAB PO SCH ×4 (02:26→23:55)
[2022-10-17 07:19] LABS: Glucose,Whole Blood 132 mg/dL (70-110)
[2022-10-17] MEDS: ALBUTEROL NEBULIZED 2.5 MG/3 ML INHALATION SCH ×4 (08:34→20:14)
[2022-10-17] MEDS: ASPIRIN 81 MG PO SCH (08:59)
[2022-10-17] MEDS: METOPROLOL SUCCINATE (ER) 50 MG TAB.ER.24H PO SCH (09:00)
[2022-10-17] MEDS: FAMOTIDINE 20 MG TAB PO SCH (09:00)
[2022-10-17] MEDS: FUROSEMIDE 40 MG TAB PO SCH (09:00)
[2022-10-17] MEDS: CLOPIDOGREL 75 MG TAB PO SCH (09:00)
[2022-10-17] MEDS ORDERED: ALPRAZolam 0.5 MG TAB PO PRN (10:56)
[2022-10-17 11:44] LABS: Glucose,Whole Blood 124 mg/dL (70-110)
--- NOTE | 2022-10-17 12:32 | CA ---
Transthoracic Echo Report Name: Jana Arellano Age: 82 Gender: F : 1940 Exam Date: 10/17/2022 11:03 Exam Location: [place] [facility] Ht (in): 62 Wt (lb): 184 Ordering Physician: Shanta Ham Attending/Referring Phys: [employer] Mechanic Luis Pandya RDCS Procedure CPT: Indications: tachycardia Cardiac Hx: Technical Quality: Fair Contrast 1: Total Dose (mL): Contrast 2: Total Dose (mL): MEASUREMENTS (Male / Female) Normal Values 2D ECHO LV Diastolic Diameter PLAX 4.7 cm 4.2 - 5.9 / 3.9 - 5.3 cm LV Systolic Diameter PLAX 3.9 cm IVS Diastolic Thickness 1.4 cm 0.6 - 1.0 / 0.6 - 0.9 cm LVPW Diastolic Thickness 1.3 cm 0.6 - 1.0 / 0.6 - 0.9 cm LV Relative Wall Thickness 0.6 RV Internal Dim ED PLAX 2.6 cm M-MODE Aortic Root Diameter MM 2.6 cm AV Cusp Separation MM 1.6 cm DOPPLER AV Peak Velocity 109.4 cm/s AV Peak Gradient 4.8 mmHg LVOT Peak Velocity 82.2 cm/s LVOT Peak Gradient 2.7 mmHg MV Area PHT 5.8 cm??? Mitral E Point Velocity 100.4 cm/s Mitral A Point Velocity 73.0 cm/s Mitral E to A Ratio 1.4 MV Deceleration Time 131.3 ms TR Peak Velocity 233.4 cm/s TR Peak Gradient 21.8 mmHg FINDINGS Left Ventricle Moderately increased septal wall thickness. Mildly increased posterior wall thickness. Left ventricular cavity size normal. Left ventricular ejection fraction is estimated at 50-55%. Right Ventricle Normal right ventricular size. Right ventricular systolic pressure within normal limits. Right Atrium Normal right atrial size. Left Atrium Normal left atrial size. Mitral Valve Structurally normal mitral valve. No mitral regurgitation. Aortic Valve Trileaflet aortic valve. No aortic regurgitation. No aortic stenosis. Tricuspid Valve Structurally normal tricuspid valve. Mild tricuspid regurgitation. Pulmonic Valve Structurally normal pulmonic valve. Pericardium No pericardial or pleural effusion. Echo free space anterior to the right ventricle likely represents a fat pad. Aorta Normal size aortic root and proximal ascending aorta. CONCLUSIONS Normal LV size with concentric LVH more so of the posterior wall. No significant abnormality on Doppler exam. No clearcut pericardial effusion but probably a fat pad. Previewed by: Dr. Cheryl Marshall MD (Electronically Signed) Final Date: 17 October 2022 12:31
--- NOTE | 2022-10-17 13:04 | P.PN ---
Subjective Progress Note Date: 10/17/22 This is a 10-year-old female patient who presented yesterday to the emergency department with complaints of dizziness worse whenever she stands up and some chronic ongoing shortness of breath. The patient states that her shortness of breath is chronic and is progressively getting worse over the past one year at least. She is currently ambulating with the help of a walker and she has oxygen at home at 2 L nasal cannula. The patient is known to me. My last evaluation with her was during her most recent hospitalization back in February 2022 and at that time the patient underwent a wedge resection of the left lower lobe mass which turned out to be a early stage lung cancer and the patient had T2 lesion and no lymph nodes were available for further staging. The patient currently is on oxygen at 2 L per minute nasal cannula. Heart rate was slightly elevated. She denies having any chest pain. She was seen in the emergency department and she was hospitalized for further evaluation management. No nausea. No vomiting. No diarrhea. No abdominal pain. She is known to have COPD with an FEV1 of 54% of predicted based on the previous spirometry that was done in my office back in 2018. 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 Note that note that the patient's initial right-sided lung surgery was Combigan by development of recurrent right-sided pleural effusion, requiring frequent thoracentesis. Is post right upper lobe resection. During this current admission, the patient underwent blood work that showed a hemoglobin of 12, white cell count of 8, BUN is at 70 with a creatinine of 0.9 his sodium level is at 137. LFTs are normal. UA is negative. CT of the chest was done and showed no evidence of any pulmonary embolism. There was cardiomegaly. There was also a hypertrophic myopathy suggestive of underlying CHF. Mother emphysema. Limited atelectatic changes in lung bases. No other acute abnormalities are noted. No lung masses. No evidence of any focal consolidation. Postsurgical changes are seen. The patient is seen today 10/17/2022 in follow-up on the regular medical floor. She is currently sitting up in a chair at the bedside. Awake and alert in no acute distress. She is breathing easier today compared to yesterday. She still has some shortness of breath and dyspnea on exertion. She is maintaining O2 saturations up to 100% on 3 L/m per nasal cannula. Afebrile. Hemodynamically stable. Blood glucose 124. She is continued on albuterol inhalations, Singulair. Objective - Vital Signs Vital signs: Vital Signs Temp 97.8 F 10/17/22 11:39 Pulse 58 L 10/17/22 11:39 Resp 16 10/17/22 11:39 BP 147/83 10/17/22 11:39 Pulse Ox 100 10/17/22 11:39 FiO2 Intake & Output 10/16/22 10/17/22 10/17/22 18:59 06:59 18:59 Weight 83.461 kg Other: Voiding Method Bedside Commode Bedside Commode - Exam GENERAL EXAM: Alert, pleasant 82-year-old female, on 3 L nasal cannula, comfortable in no apparent distress. HEAD: Normocephalic. EYES: Normal reaction of pupils, equal size. NOSE: Clear with pink turbinates. THROAT: No erythema or exudates. NECK: No masses, no JVD. CHEST: No chest wall deformity. LUNGS: Equal air entry with no crackles, wheeze, rhonchi or dullness. Diminished bilaterally. CVS: S1 and S2 normal with no audible murmur, regular rhythm. ABDOMEN: No hepatosplenomegaly, normal bowel sounds, no guarding or rigidity. SPINE: No scoliosis or deformity SKIN: No rashes CENTRAL NERVOUS SYSTEM: No focal deficits, tone is normal in all 4 extremities. EXTREMITIES: There is no peripheral edema. No clubbing, no cyanosis. Peripheral pulses are intact. - Labs CBC & Chem 7: 10/15/22 20:27 10/15/22 20:27 Labs: Abnormal Lab Results - Last 24 Hours (Table) 10/17/22 10/17/22 Range/Units 07:17 11:43 POC Glucose (mg/dL) 132 H 124 H (70-110) mg/dL Assessment and Plan Assessment: Dizziness, likely due to underlying paroxysmal A. fib, current rhythm is sinus. Hemodynamically stable. Echocardiogram revealed preserved left ventricular systolic function. No significant valvular abnormalities. Chronic hypoxic respiratory failure currently on oxygen 2 L minute nasal cannula COPD, severe, currently inactive and stable with chronic exertional dyspnea Squamous cell carcinoma of the left lower lobe post wedge resection. The patient had a 1.2 cm mass in left lower lobe underwent wedge resection back in February 2022. Subsequent CAT scan of the chest from this current admission showed no evidence of any tumor recurrence Early stage adenocarcinoma of the lung. The patient had a Previous right upper lobe resection for adenocarcinoma, stage T Ib N0 M0 History of recurrent right-sided pleural effusion requiring multiple thoracentesis, negative cytology, fluids recovered Coronary artery disease Hyperlipidemia Environmental ALLERGIES History of smoking Obesity with a BMI of 36.6 Osteoarthritis Hypertension Plan: The patient was seen and evaluated Echocardiogram, medications and labs reviewed Stable for discharge from the pulmonary standpoint Continue her home pulmonary medications, oxygen Follow-up in our office as scheduled I have personally seen and examined the patient, performed the documentation and the assessment and plan as written. Number of minutes spent on the visit: 10.
--- NOTE | 2022-10-17 13:48 | P.PN ---
Subjective Progress Note Date: 10/17/22 History of present illness: The patient is an 82-year-old female with past medical history of coronary artery disease with prior stenting, hypertension, hyperlipidemia, and lung ca ncer, presented to the emergency room with increased shortness of breath. The patient recently underwent lung mass resection with Dr. Mix. She has a known history of COPD and adenocarcinoma. Review of past records show that she did undergo coronary stenting with Dr. Cai, however she does not follow in the office. DIAGNOSTICS: EKG shows AV leonora reentrant tachycardia Chest x-ray shows no acute cardiopulmonary process with underlying COPD Computed tomography scan of the chest shows no evidence of pulmonary embolism. Scattered atelectasis and scarring throughout the lungs, which are more pronounced in the bases. No focal consolidation. Lab data: WBC 8.0, hemoglobin 12.1, hematocrit 37.7, platelet 289, sodium 137, potassium 4.7, BUN 17, creatinine 0.93, AST 24, ALT 20, troponin 0.03, BNP 1790, TSH 2.6 10/16 Patient is seen today in follow-up. She states her breathing is okay, no s hortness of breath. Blood pressure 147/83, heart rate in the 60s and 70s. Echocardiogram reveals EF of 50-55%, concentric left hypertrophy more so on the posterior wall. No significant abnormalities on Doppler exam. No pericardial effusion but probably fat pad PHYSICAL EXAMINATION: This is a 82-year-old female in no apparent distress at the time of my examination. HEENT: Head is atraumatic, normocephalic. Pupils are equal, round. Sclerae anicteric. Conjunctivae are clear. Mucous membranes of the mouth are moist. Neck is supple. There is no jugular venous distention. No carotid bruit is heard. CHEST EXAMINATION: Lungs are severely diminished on the right to auscultation. No chest wall tenderness is noted on palpation or with deep breathing. Bilateral inspiratory and expiratory wheezes. HEART EXAMINATION: Heart regular rate and rhythm. S1, S2 heard. No murmurs, gallops or rub. ABDOMEN: Soft, nontender. Bowel sounds are heard. No organomegaly noted. EXTREMITIES: 2+ peripheral pulses with no evidence of peripheral edema and no calf tenderness noted. NEUROLOGIC EXAMINATION: Patient is awake, alert and oriented x3. FINAL ASSESSMENT AND PLAN: AV leonora reentrant tachycardia Elevated BNP History of coronary artery disease with prior stenting History of lung cancer Hypertension Hyperlipidemia PLAN: Increase Coreg to 6.25 mg twice daily Recommend supportive treatment for lung disease Cardiology we will sign off and follow on an as-needed basis. Please reconsult for any new concerns. Nurse practitioner note has been reviewed, I agree with the documented findings and plan of care. Patient was seen and examined. Objective - Vital Signs Vital signs: Vital Signs Temp 97.5 F L 10/17/22 07:14 Pulse 65 10/17/22 07:14 Resp 18 10/17/22 09:05 BP 152/83 10/17/22 07:14 Pulse Ox 98 10/17/22 08:34 FiO2 Intake & Output 10/16/22 10/17/22 10/17/22 18:59 06:59 18:59 Weight 83.461 kg Other: Voiding Method Bedside Commode Bedside Commode - Labs CBC & Chem 7: 10/15/22 20:27 10/15/22 20:27 Labs: Abnormal Lab Results - Last 24 Hours (Table) 10/17/22 10/17/22 Range/Units 07:17 11:43 POC Glucose (mg/dL) 132 H 124 H (70-110) mg/dL
--- NOTE | 2022-10-17 14:13 | HP ---
HISTORY AND PHYSICAL CHIEF COMPLAINTS: Shortness of breath and tachycardia. HISTORY OF PRESENT ILLNESS: This is an 82-year-old woman with a past medical history of multiple medical problems including COPD, was admitted with shortness of breath and has multiple symptomatology. The patient was found to have tachycardia. There is no history of any fever, rigors, or chills at this time. PAST MEDICAL HISTORY: Reviewed include COPD, rest of the history and chart is reviewed. HOME MEDICATIONS: Reviewed include Crestor, dose and rest of medication reviewed. ALLERGIES: Penicillin. FAMILY HISTORY: History of myocardial infarction, CVA, TIA. SOCIAL HISTORY: Previous history of smoking. REVIEW OF SYSTEMS: A 14-point review is negative except as mentioned earlier. PHYSICAL EXAMINATION: VITAL SIGNS: Pulse 65, blood pressure 152/83, respirations 16. HEENT: Conjunctivae normal. NECK: No jugular venous distention. CARDIOVASCULAR: S1, S2 muffled. RESPIRATIONS: Bilateral scattered rhonchi and crackles. ABDOMEN: Soft, nontender. NERVOUS SYSTEM: No focal deficits. SKIN: No ulcer, rash, bleeding. JOINTS: No active deforming arthropathy. LABORATORY DATA: Reviewed. Chest x-ray reviewed personally. ASSESSMENT: 1. Chronic obstructive pulmonary disease acute exacerbation. 2. Tachycardia. 3. Chronic hypoxic respiratory failure. 4. Dizziness. 5. History of paroxysmal atrial fibrillation. 6. History of adenocarcinoma of the lung. DISCUSSION: This 82-year-old woman presented with multiple complex medical issues, closely monitored. We will optimize the bronchodilator treatment. Resume the home medications. Increase ambulation. Closely follow with Pulmonary. Prognosis guarded. Further recommendations to follow. MMODL / IJN: [id number] /
[2022-10-17] MEDS: carvediloL 6.25 MG TAB PO SCH (16:52)
[2022-10-17 17:26] LABS: Glucose,Whole Blood 120 mg/dL (70-110)
[2022-10-17] MEDS ORDERED: carvediloL 3.125 MG TAB PO SCH (17:30)
[2022-10-17 20:20] LABS: Glucose,Whole Blood 139 mg/dL (70-110)
[2022-10-18 07:20] LABS: Glucose,Whole Blood 110 mg/dL (70-110)
[2022-10-18] MEDS: CLOPIDOGREL 75 MG TAB PO SCH (09:21)
[2022-10-18] MEDS: POTASSIUM CHLORIDE ER 10 MEQ TAB.ER.PRT PO SCH (09:21)
[2022-10-18] MEDS: FUROSEMIDE 40 MG TAB PO SCH (09:22)
[2022-10-18] MEDS: ATORVASTATIN 40 MG TAB PO SCH (09:22)
[2022-10-18] MEDS: carvediloL 6.25 MG TAB PO SCH ×2 (09:22→17:50)
[2022-10-18] MEDS: MONTELUKAST 10 MG TAB PO SCH (09:22)
[2022-10-18] MEDS: ASPIRIN 81 MG PO SCH (09:28)
[2022-10-18] MEDS: FAMOTIDINE 20 MG TAB PO SCH (09:28)
[2022-10-18] MEDS: CHOLECALCIFEROL 25 MCG (1000 IU) TABLET PO SCH (09:29)
[2022-10-18] MEDS: HYDROcodone/APAP 10-325MG 1 EACH TAB PO SCH ×3 (09:34→22:09)
[2022-10-18] MEDS: ALBUTEROL NEBULIZED 2.5 MG/3 ML INHALATION SCH ×4 (09:35→22:32)
[2022-10-18 11:06] LABS: Basophils % (A) 0.5 %; Eosinophils % (A) 5.6 %; HCT 35.3 % (37.2-46.3); HGB 10.5 g/dL (12.0-15.0); Lymphocytes # (A) 1.85 X 10*3/uL (0.90-5.00); Lymphocytes % (A) 28.1 %; MCH 26.9 pg (27.0-32.0); MCHC 29.7 g/dL (32.0-37.0); MCV 90.5 fL (80.0-97.0); Mean Platelet Volume 10.5 fL (9.5-12.2); Neutrophils # (A) 3.79 X 10*3/uL (1.80-7.70); Neutrophils % (A) 57.5 %; Platelet Count 217 X 10*3/uL (140-440); RDW 14.2 % (11.5-14.5); WBC 6.59 X 10*3/uL (4.50-10.00)
[2022-10-18 11:07] LABS: Basophils # (A) 0.03 X 10*3/uL (0.00-0.10); Eosinophils # (A) 0.37 X 10*3/uL (0.04-0.35); Immature Grans, Automated 0.3 %; Monocytes # (A) 0.53 X 10*3/uL (0.20-1.00); NRBC Per 100 WBC 0 /100 WBCS (0.0-0.0)
[2022-10-18 11:17] LABS: Anion Gap 8.1 mmol/L (10.00-18.00); BUN/Creat Ratio 23.89 Ratio (12.00-20.00); Blood Urea Nitrogen 21.5 mg/dL (9.0-27.0); Calcium 9.2 mg/dL (8.7-10.3); Carbon Dioxide 32.9 mmol/L (20.0-27.5); Non-African American GFR(CKD) 60.4 (60.0-200.0); Potassium 3.7 mmol/L (3.5-5.5)
[2022-10-18 12:10] LABS: Glucose,Whole Blood 136 mg/dL (70-110)
--- NOTE | 2022-10-18 12:13 | P.PN ---
Subjective Progress Note Date: 10/18/22 This is a 10-year-old female patient who presented yesterday to the emergency department with complaints of dizziness worse whenever she stands up and some chronic ongoing shortness of breath. The patient states that her shortness of breath is chronic and is progressively getting worse over the past one year at least. She is currently ambulating with the help of a walker and she has oxygen at home at 2 L nasal cannula. The patient is known to me. My last evaluation with her was during her most recent hospitalization back in February 2022 and at that time the patient underwent a wedge resection of the left lower lobe mass which turned out to be a early stage lung cancer and the patient had T2 lesion and no lymph nodes were available for further staging. The patient currently is on oxygen at 2 L per minute nasal cannula. Heart rate was slightly elevated. She denies having any chest pain. She was seen in the emergency department and she was hospitalized for further evaluation management. No nausea. No vomiting. No diarrhea. No abdominal pain. She is known to have COPD with an FEV1 of 54% of predicted based on the previous spirometry that was done in my office back in 2018. 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 Note that note that the patient's initial right-sided lung surgery was Combigan by development of recurrent right-sided pleural effusion, requiring frequent thoracentesis. Is post right upper lobe resection. During this current admission, the patient underwent blood work that showed a hemoglobin of 12, white cell count of 8, BUN is at 70 with a creatinine of 0.9 his sodium level is at 137. LFTs are normal. UA is negative. CT of the chest was done and showed no evidence of any pulmonary embolism. There was cardiomegaly. There was also a hypertrophic myopathy suggestive of underlying CHF. Mother emphysema. Limited atelectatic changes in lung bases. No other acute abnormalities are noted. No lung masses. No evidence of any focal consolidation. Postsurgical changes are seen. The patient is seen today 10/17/2022 in follow-up on the regular medical floor. She is currently sitting up in a chair at the bedside. Awake and alert in no acute distress. She is breathing easier today compared to yesterday. She still has some shortness of breath and dyspnea on exertion. She is maintaining O2 saturations up to 100% on 3 L/m per nasal cannula. Afebrile. Hemodynamically stable. Blood glucose 124. She is continued on albuterol inhalations, Singulair. The patient is seen today 10/18/2022 in follow-up on the regular medical floor. She is currently sitting up in bed. Awake and alert in no acute distress. Denies any worsening shortness of breath, cough or congestion. 18 in good O2 saturations in the 90s on 3 L/m per nasal cannula. Afebrile. Hemodynamically stable. White count 6.5. Hemoglobin 10.5. Platelets 217. Sodium 141. Potassium 3.7. Bicarb 33. BUN 22. Creatinine 0.9. Glucose 170. She remains on albuterol, Singulair. Objective - Vital Signs Vital signs: Vital Signs Temp 97.6 F 10/18/22 08:00 Pulse 60 10/18/22 09:47 Resp 16 10/18/22 08:00 BP 155/70 10/18/22 09:20 Pulse Ox 97 10/18/22 09:36 FiO2 Intake & Output 10/17/22 10/18/22 10/18/22 18:59 06:59 18:59 Other: Voiding Method Bedside Commode Bedside Commode Bedside Commode # Voids 2 1 1 # Bowel Movements 1 - Exam GENERAL EXAM: Alert, 82-year-old female, on 3 L nasal cannula, comfortable in no apparent distress. HEAD: Normocephalic. EYES: Normal reaction of pupils, equal size. NOSE: Clear with pink turbinates. THROAT: No erythema or exudates. NECK: No masses, no JVD. CHEST: No chest wall deformity. LUNGS: Equal air entry with no crackles, wheeze, rhonchi or dullness. Diminished bilaterally. CVS: S1 and S2 normal with no audible murmur, regular rhythm. ABDOMEN: No hepatosplenomegaly, normal bowel sounds, no guarding or rigidity. SPINE: No scoliosis or deformity SKIN: No rashes CENTRAL NERVOUS SYSTEM: No focal deficits, tone is normal in all 4 extremities. EXTREMITIES: There is no peripheral edema. No clubbing, no cyanosis. Per ipheral pulses are intact. - Labs CBC & Chem 7: 10/18/22 06:37 10/18/22 06:37 Labs: Abnormal Lab Results - Last 24 Hours (Table) 10/17/22 10/17/22 10/18/22 Range/Units 17:24 20:14 06:37 RBC 3.90 L (4.10-5.20) X 10*6/uL Hgb 10.5 L (12.0-15.0) g/dL Hct 35.3 L (37.2-46.3) % MCH 26.9 L (27.0-32.0) pg MCHC 29.7 L (32.0-37.0) g/dL Eosinophils # 0.37 H (0.04-0.35) X 10*3/uL Carbon Dioxide (20.0-27.5) mmol/L Anion Gap (10.00-18.00) mmol/L BUN/Creatinine Ratio (12.00-20.00) Ratio POC Glucose (mg/dL) 120 H 139 H (70-110) mg/dL 10/18/22 Range/Units 06:37 RBC (4.10-5.20) X 10*6/uL Hgb (12.0-15.0) g/dL Hct (37.2-46.3) % MCH (27.0-32.0) pg MCHC (32.0-37.0) g/dL Eosinophils # (0.04-0.35) X 10*3/uL Carbon Dioxide 32.9 H (20.0-27.5) mmol/L Anion Gap 8.10 L (10.00-18.00) mmol/L BUN/Creatinine Ratio 23.89 H (12.00-20.00) Ratio POC Glucose (mg/dL) (70-110) mg/dL Assessment and Plan Assessment: Dizziness, likely due to underlying paroxysmal A. fib, current rhythm is sinus. Hemodynamically stable. Echocardiogram revealed preserved left ventricular sy stolic function. No significant valvular abnormalities. 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 The patient had a 1.2 cm mass in left lower lobe underwent wedge resection back in February 2022. Subsequent CAT scan of the chest from this current admission showed no evidence of any tumor recurrence Early stage adenocarcinoma of the lung. The patient had a Previous right upper lobe resection for adenocarcinoma, stage T Ib N0 M0 History of recurrent right-sided pleural effusion requiring multiple thoracent esis, negative cytology, fluids recovered Coronary artery disease Hyperlipidemia Environmental ALLERGIES History of smoking Obesity with a BMI of 36.6 Osteoarthritis Hypertension Plan: The patient was seen and evaluated Medications and labs reviewed Stable for discharge from the pulmonary standpoint Continue her home pulmonary medications, oxygen Follow-up in our office as scheduled I have personally seen and examined the patient, performed the documentation and the assessment and plan as written. Number of minutes spent on the visit: 10.
[2022-10-18 17:15] LABS: Glucose,Whole Blood 117 mg/dL (70-110)
[2022-10-18 20:22] LABS: Glucose,Whole Blood 136 mg/dL (70-110)
[2022-10-18 23:18] VITALS: RESP 16
--- NOTE | 2022-10-19 06:49 | PN ---
PROGRESS NOTE She came in with tachycardia severe nature and hypoxemia. She has a history of 2 resections of the lung for 2 different kinds of cancer in the lung. Currently, temperature is 98.1, pulse 62, respiratory rate 16, blood pressure 130s over 70s and 98% on 3 L, which is a normal rate at home. Possibly, wants to go home. Hemoglobin is 10.5, white count 6.1, carbon dioxide is 32. BUN is 21, creatinine 0.9. Sugars mid 100s. She was seen by Dr. Ray today. ASSESSMENT: Dizziness secondary to paroxysmal atrial fibrillation, currently in sinus rhythm. Echo showed preserved ejection fraction, chronic hypoxemic respiratory failure on 2L of oxygen, COPD severe, squamous cell carcinoma of the left lower lobe, status post lung resection, 1.2 cm mass, left lower lobe, underwent a wedge resection February 2022. There is no tumor recurrence on CT scan at this time. She had early stage adenocarcinoma of the lung in the past also, history of recurrent right-sided pleural effusion, multiple thoracenteses, negative cytology, coronary artery disease, dyslipidemia, COPD, allergic rhinitis. Prognosis guarded. Possible discharge home in the morning. MMODL / IJN: [id number] /
[2022-10-19 07:39] LABS: Glucose,Whole Blood 113 mg/dL (70-110)
[2022-10-19 08:04] VITALS: TEMP 97.7
[2022-10-19] MEDS: ALBUTEROL NEBULIZED 2.5 MG/3 ML INHALATION SCH ×3 (09:28→15:37)
[2022-10-19] MEDS: carvediloL 6.25 MG TAB PO SCH (10:18)
[2022-10-19] MEDS: ASPIRIN 81 MG PO SCH (10:19)
[2022-10-19] MEDS: CHOLECALCIFEROL 25 MCG (1000 IU) TABLET PO SCH (10:19)
[2022-10-19] MEDS: ATORVASTATIN 40 MG TAB PO SCH (10:19)
[2022-10-19] MEDS: FUROSEMIDE 40 MG TAB PO SCH (10:20)
[2022-10-19] MEDS: CLOPIDOGREL 75 MG TAB PO SCH (10:20)
[2022-10-19] MEDS: FAMOTIDINE 20 MG TAB PO SCH (10:20)
[2022-10-19] MEDS: HYDROcodone/APAP 10-325MG 1 EACH TAB PO SCH (10:22)
[2022-10-19] MEDS: MONTELUKAST 10 MG TAB PO SCH (10:24)
[2022-10-19] MEDS: POTASSIUM CHLORIDE ER 10 MEQ TAB.ER.PRT PO SCH (10:24)
--- NOTE | 2022-10-19 12:20 | P.PN ---
Subjective Progress Note Date: 10/19/22 This is a 10-year-old female patient who presented yesterday to the emergency department with complaints of dizziness worse whenever she stands up and some chronic ongoing shortness of breath. The patient states that her shortness of breath is chronic and is progressively getting worse over the past one year at least. She is currently ambulating with the help of a walker and she has oxygen at home at 2 L nasal cannula. The patient is known to me. My last evaluation with her was during her most recent hospitalization back in February 2022 and at that time the patient underwent a wedge resection of the left lower lobe mass which turned out to be a early stage lung cancer and the patient had T2 lesion and no lymph nodes were available for further staging. The patient currently is on oxygen at 2 L per minute nasal cannula. Heart rate was slightly elevated. She denies having any chest pain. She was seen in the emergency department and she was hospitalized for further evaluation management. No nausea. No vomiting. No diarrhea. No abdominal pain. She is known to have COPD with an FEV1 of 54% of predicted based on the previous spirometry that was done in my office back in 2018. 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 Note that note that the patient's initial right-sided lung surgery was [place] by development of recurrent right-sided pleural effusion, requiring frequent thoracentesis. Is post right upper lobe resection. During this current admission, the patient underwent blood work that showed a hemoglobin of 12, white cell count of 8, BUN is at 70 with a creatinine of 0.9 his sodium level is at 137. LFTs are normal. UA is negative. CT of the chest was done and showed no evidence of any pulmonary embolism. There was cardiomegaly. There was also a hypertrophic myopathy suggestive of underlying CHF. Mother emphysema. Limited atelectatic changes in lung bases. No other acute abnormalities are noted. No lung masses. No evidence of any focal consolidation. Postsurgical changes are seen. The patient is seen today 10/17/2022 in follow-up on the regular medical floor. She is currently sitting up in a chair at the bedside. Awake and alert in no acute distress. She is breathing easier today compared to yesterday. She still has some shortness of breath and dyspnea on exertion. She is maintaining O2 saturations up to 100% on 3 L/m per nasal cannula. Afebrile. Hemodynamically stable. Blood glucose 124. She is continued on albuterol inhalations, Singulair. The patient is seen today 10/18/2022 in follow-up on the regular medical floor. She is currently sitting up in bed. Awake and alert in no acute distress. Denies any worsening shortness of breath, cough or congestion. 18 in good O2 saturations in the 90s on 3 L/m per nasal cannula. Afebrile. Hemodynamically stable. White count 6.5. Hemoglobin 10.5. Platelets 217. Sodium 141. Potassium 3.7. Bicarb 33. BUN 22. Creatinine 0.9. Glucose 170. She remains on albuterol, Singulair. The patient is seen today 10/19/2022 in follow-up on the regular medical floor. She remains awake and alert in no acute distress. Denies any worsening shortness of breath, cough or congestion. Maintaining O2 saturations up to 99% on 3 L/m per nasal cannula. She's afebrile. Hemodynamically stable. Blood glucose 113. Continued on Singulair, albuterol as needed. Objective - Vital Signs Vital signs: Vital Signs Temp 97.7 F 10/19/22 08:00 Pulse 67 10/19/22 10:07 Resp 16 10/19/22 08:00 BP 129/71 10/19/22 10:07 Pulse Ox 99 10/19/22 08:00 FiO2 Intake & Output 10/18/22 10/19/22 10/19/22 18:59 06:59 18:59 Intake Total 590 Balance 590 Intake: Oral 590 Other: Voiding Method Bedside Commode Bedside Commode # Voids 1 1 - Exam GENERAL EXAM: Alert, 82-year-old female, on 3 L nasal cannula, comfortable in no apparent distress. HEAD: Normocephalic. EYES: Normal reaction of pupils, equal size. NOSE: Clear with pink turbinates. THROAT: No erythema or exudates. NECK: No masses, no JVD. CHEST: No chest wall deformity. LUNGS: Equal air entry with no crackles, wheeze, rhonchi or dullness. Diminished bilaterally. CVS: S1 and S2 normal with no audible murmur, regular rhythm. ABDOMEN: No hepatosplenomegaly, normal bowel sounds, no guarding or rigidity. SPINE: No scoliosis or deformity SKIN: No rashes CENTRAL NERVOUS SYSTEM: No focal deficits, tone is normal in all 4 extremities. EXTREMITIES: There is no peripheral edema. No clubbing, no cyanosis. Peripheral pulses are intact. - Labs CBC & Chem 7: 10/18/22 06:37 10/18/22 06:37 Labs: Abnormal Lab Results - Last 24 Hours (Table) 10/18/22 10/18/22 10/19/22 Range/Units 17:13 20:21 07:37 POC Glucose (mg/dL) 117 H 136 H 113 H (70-110) mg/dL Assessment and Plan Assessment: Dizziness, likely due to underlying paroxysmal A. fib, current rhythm is sinus. Hemodynamically stable. Echocardiogram revealed preserved left ventricular systolic function. No significant valvular abnormalities. 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 The patient had a 1.2 cm mass in left lower lobe underwent wedge resection back in February 2022. Subsequent CAT scan of the chest from this current admission s howed no evidence of any tumor recurrence Early stage adenocarcinoma of the lung. The patient had a Previous right upper lobe resection for adenocarcinoma, stage T Ib N0 M0 History of recurrent right-sided pleural effusion requiring multiple thoracentesis, negative cytology, fluids recovered Coronary artery disease Hyperlipidemia Environmental ALLERGIES History of smoking Obesity with a BMI of 36.6 Osteoarthritis Hypertension Plan: The patient was seen and evaluated Medications reviewed Stable for discharge Continue her home pulmonary medications, oxygen Follow-up in our office as scheduled I have personally seen and examined the patient, performed the documentation and the assessment and plan as written. Number of minutes spent on the visit: 10.
[2022-10-19 14:21] VITALS: BP 116/75; PULSE 72
== END 2022-10-19 15:49 | disposition home or self-care (01) | DRG 309 ==
LOC: EC 19:33 → 5NMEDONC 23:29
PROVIDERS: ADMIT Family Medicine; ATTEND Family Medicine
DX: I47.1 Supraventricular tachycardia (principal); I42.2 Other hypertrophic cardiomyopathy; J96.11 Chronic respiratory failure with hypoxia; E66.9 Obesity, unspecified; Z68.36 Body mass index [BMI] 36.0-36.9, adult; I48.0 Paroxysmal atrial fibrillation; M19.90 Unspecified osteoarthritis, unspecified site; E78.5 Hyperlipidemia, unspecified; I25.10 Atherosclerotic heart disease of native coronary artery without angina pectoris; J43.9 Emphysema, unspecified; Z85.118 Personal history of other malignant neoplasm of bronchus and lung; Z79.02 Long term (current) use of antithrombotics/antiplatelets; Z79.82 Long term (current) use of aspirin; Z79.899 Other long term (current) drug therapy; Z82.5 Family history of asthma and other chronic lower respiratory diseases; Z87.891 Personal history of nicotine dependence; Z90.2 Acquired absence of lung [part of]; Z90.710 Acquired absence of both cervix and uterus; Z95.5 Presence of coronary angioplasty implant and graft; Z88.0 Allergy status to penicillin
CPT/HCPCS: 36415; 71046; 71275; 80048; 80053; 81001; 83605; 83880; 84443; 84484; 85025; 85610; 93005; 93306; 94640; 94760; 96361; 96374; 96376; 99285

== ENCOUNTER → 2023-02-21 | Outpatient (CLI) | payer MEDICARE, OTHER ==
--- NOTE | 2023-02-21 17:01 | CT ---
EXAMINATION TYPE: CT chest wo con CT DLP: 764 mGycm, Automated exposure control for dose reduction was used. DATE OF EXAM: 02/21/2023 4:14 PM COMPARISON: Multiple CT chest with most recent 10/15/2022 CLINICAL INDICATION:Female, 83 years old with history of I26.9 SEPTIC PULMONARY EMBOLISM WITHOUT ACUT E COR; PHH, hx of PE TECHNIQUE: Multiple axial images were obtained through the chest without IV contrast. Lack of IV or o ral contrast limits evaluation of solid and hollow organ viscera. . Coronal and sagittal reformats re viewed. FINDINGS: LUNGS/ PLEURA: Postsurgical changes from partial right pneumonectomy and along the left lower lobe ag ain demonstrated. No pleural effusion or pneumothorax. There is moderate centrilobular emphysema kee ges. Streaky atelectasis/scarring in the lung bases redemonstrated. No new or enlarging pulmonary nod ules. AIRWAY: Patent and unremarkable. HEART: Heart is mildly enlarged for size. Moderate coronary artery calcifications. No pericardial eff usion. MEDIASTINUM: No pathologic enlarged lymphadenopathy. Shifted to the right due to right lung volume lo ss. VASCULATURE: No aortic aneurysm. Atherosclerosis of the aorta and its branches. MUSCULOSKELETAL: No acute osseous abnormalities. No aggressive osseous lesion. SOFT TISSUES/LYMPH NODES: Decrease in size of left posterior lateral soft tissue lesion measuring 0.9 cm, previously measured up to 2.2 cm. LOWER NECK: No significant findings. UPPER ABDOMEN: No significant findings. IMPRESSION: 1. Postsurgical changes of the lungs redemonstrated without evidence of suspicious mass or enlarging pulmonary nodule. No evidence for lymphadenopathy. 2. Moderate emphysema changes. 3. Decrease in now subcentimeter left lateral subcutaneous lesion seen on prior examination likely r epresenting a benign process such as a postsurgical seroma.
== END | disposition home or self-care (01) ==
LOC: RADCTMAIN 15:28
PROVIDERS: ATTEND Family Medicine
DX: J43.2 Centrilobular emphysema (principal); I26.90 Septic pulmonary embolism without acute cor pulmonale; Z98.890 Other specified postprocedural states
CPT/HCPCS: 71250

== ENCOUNTER 2023-05-24 16:29 | Inpatient (IN) | payer MEDICARE, OTHER ==
--- NOTE | 2023-05-24 17:50 | ED ---
General Adult HPI - General Source: patient, RN notes reviewed Mode of arrival: wheelchair <Irlanda Clemente - Last Filed: 05/24/23 17:48> - General Source: patient, family, RN notes reviewed Limitations: no limitations <Michael Ayala - Last Filed: 05/24/23 20:22> - General Chief complaint: Shortness of Breath Stated complaint: FRANTZ - History of Present Illness Initial comments: 83-year-old female presents emergency department chief complaint of shortness of breath. She states that this is been going on for the past 2-3 weeks. She does have history of lung cancer and uses 2 L of oxygen at home. She states that she attempted to increase her oxygen to 3 L that this did not help. She admits to palpitations that have been going on for around the same time period. (Irlanda Clemente) Patient is a pleasant 83-year-old female presenting to the emergency department with concerns for soreness of breath. Symptoms have been going on for the past 2-3 weeks. Patient does have history of lung transplant and COPD. Patient states dyspnea does worsen with exertion. Patient has had mild cough. (Michael Ayala) - Related Data Home Medications Medication Instructions Recorded Confirmed ALPRAZolam [Xanax] 0.5 mg PO TID PRN 03/19/14 10/15/22 Montelukast [Singulair] 10 mg PO DAILY 09/15/17 10/15/22 Albuterol Inhaler [Ventolin Hfa 1 puff INHALATION RT-BID PRN 10/30/17 10/15/22 Inhaler] Ipratropium Nebulized [Atrovent 0.5 mg INHALATION RT-QID PRN 03/26/18 10/15/22 Nebulized 0.2 MG/ML] Potassium Chloride [Klor-Con 10 ER] 10 meq PO DAILY 03/26/18 10/15/22 Aspirin [Adult Low Dose Aspirin EC] 81 mg PO DAILY 04/27/21 10/15/22 Cholecalciferol [Vitamin D3 (25 25 mcg PO DAILY 04/27/21 10/15/22 Mcg = 1000 Iu)] Famotidine [Pepcid] 40 mg PO BID 04/27/21 10/15/22 Furosemide [Lasix] 40 mg PO DAILY 04/27/21 10/15/22 HYDROcodone/APAP 10-325MG [[place] 1 tab PO TID 10/15/22 10/15/22 10-325] Nystatin 100,000Unit/gm Cream 1 applic TOPICAL BID PRN 10/15/22 10/15/22 [Mycostatin Cream] Previous Rx's Medication Instructions Recorded Clopidogrel [Plavix] 75 mg PO DAILY #90 tab 01/01/18 Atorvastatin [Lipitor] 40 mg PO DAILY 90 Days #90 tab 10/19/22 carvediloL [Coreg] 6.25 mg PO BID-W/MEALS 90 Days 10/19/22 #189 tab Allergies Allergy/AdvReac Type Severity Reaction Status Date / Time Penicillins Allergy Rash/Hives Verified 05/24/23 16:52 Review of Systems ROS Other: All systems not noted in ROS Statement are negative. <Irlanda Clemente - Last Filed: 05/24/23 17:48> ROS Other: All systems not noted in ROS Statement are negative. Constitutional: Denies: fever Eyes: Denies: eye pain ENT: Denies: ear pain Respiratory: Reports: as per HPI, cough, dyspnea Cardiovascular: Denies: chest pain Endocrine: Reports: fatigue Gastrointestinal: Denies: abdominal pain Genitourinary: Denies: urgency <Michael Ayala - Last Filed: 05/24/23 20:22> ROS Statement: Those systems with pertinent positive or pertinent negative responses have been documented in the HPI. 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 History of Any Multi-Drug Resistant Organisms: None Reported Past Surgical History: Appendectomy, Bowel Resection, Ear Surgery, Heart Martha terization With Stent, Hernia Repair, Hysterectomy, Tonsillectomy Additional Past Surgical History / Comment(s): Colon/bowel surgery done in her 30's-21 inches removed, bilateral cataracts removed, bilateral laser eye surgery, hemorroidectomy, hiatal hernia, robotic rt upper lobectomy w/mediastinal lymph node dissection, 1 cardiac stent Past Anesthesia/Blood Transfusion Reactions: No Reported Reaction Additional Past Anesthesia/Blood Transfusion Reaction / Comment(s): no hx blood transfusion Date of Last Stent Placement:: 01/01/18 Past Psychological History: No Psychological Hx Reported Smoking Status: Former smoker Past Alcohol Use History: None Reported Past Drug Use History: None Reported - Past Family History Father Family Medical History: CVA/TIA, Myocardial Infarction (DC) Mother Family Medical History: Cancer Additional Family Medical History / Comment(s): bowel cancer <Irlanda Clemente - Last Filed: 05/24/23 17:48> General Exam <Irlanda Clemente - Last Filed: 05/24/23 17:48> Limitations: no limitations General appearance: alert, in no apparent distress Head exam: Present: normocephalic Eye exam: Present: normal appearance Neck exam: Present: normal inspection Respiratory exam: Present: decreased breath sounds Cardiovascular Exam: Present: regular rate, normal rhythm GI/Abdominal exam: Present: soft. Absent: tenderness Extremities exam: Present: normal inspection. Absent: pedal edema, calf tenderness Neurological exam: Present: alert Psychiatric exam: Present: normal affect, normal mood Skin exam: Present: normal color <Michael Ayala - Last Filed: 05/24/23 20:22> - General Exam Comments Initial Comments: Visual Physical Exam Vital signs reviewed General: Well-appearing, nontoxic, no acute distress. Head: Normocephalic, atraumatic Eyes: PERRLA, EOMI ENT: Airway patent Chest: Nonlabored breathing Skin: No visual rash, normal skin tone Neuro: Alert and oriented 3 Musculoskeletal: No gross abnormalities (Irlanda Clemente) Course Vital Signs 05/24/23 16:47 Temperature 97.7 F Pulse Rate 72 Respiratory 24 Rate Blood Pressure 122/71 O2 Sat by Pulse 98 Oximetry Medical Decision Making <Irlanda Clemente - Last Filed: 05/24/23 17:48> - Lab Data Result diagrams: 05/24/23 18:36 05/24/23 18:35 <Michael Ayala - Last Filed: 05/24/23 20:22> - Medical Decision Making I preformed the quick note portion of this chart. Electronically signed by Irlanda Clemente PA-C. (Irlanda Clemente) Was pt. sent in by a medical professional or institution ([facility], [facility], urgent care, hospital, or [facility]...) When possible be specific @ -No Did you speak to anyone other than the patient for history (EMS, parent, family, police, friend...)? What history was obtained from this source @ -Family is present and helps provide history including previous surgery Did you review nursing and triage notes (agree or disagree)? Why? @ -I reviewed and agree with nursing and triage notes Were old charts reviewed (outside hosp., previous admission, EMS record, old EKG, old radiological studies, urgent care reports/EKG's, [facility] records)? Report findings @ -No old charts were reviewed Differential Diagnosis (chest pain, altered mental status, abdominal pain women, abdominal pain men, vaginal bleeding, weakness, fever, dyspnea, syncope, hea dache, dizziness, GI bleed, back pain, seizure, CVA, palpatations, mental health, musculoskeletal)? @ -Differential Dyspnea: Coronary syndrome, arrhythmia, tamponade, asthma, COPD, pulmonary embolism, pneumonia, pneumothorax, pulmonary effusion, anaphylaxis, diabetic ketoacidosis, flailed chest, pulmonary contusion, diaphragmatic rupture, anemia, neuromuscular, this is not meant to be an all-inclusive list. EKG interpreted by me (3pts min.). @ -As above X-rays interpreted by me (1pt min.). @ -Chest x-ray shows COPD changes. Some increased interstitial markings and minimal effusions. CT interpreted by me (1pt min.). @ -None done U/S interpreted by me (1pt. min.). @ -None done What testing was considered but not performed or refused? (CT, X-rays, U/S, labs)? Why? @ -None What meds were considered but not given or refused? Why? @ -None Did you discuss the management of the patient with other professionals (professionals i.e. , [facility], [facility], lab, RT, psych nurse, social group worker, infant caregiver, teacher, hydrographical technical officer, outpatient case manager)? Give summary @ -Case was discussed with Dr. Saul who is familiar with this patient and will admit. Was smoking cessation discussed for >3mins.? @ -No Was critical care preformed (if so, how long)? @ -No Were there social determinants of health that impacted care today? How? (Mohan elessness, low income, unemployed, alcoholism, drug addiction, transportation, low edu. Level, literacy, decrease access to med. care, detention, rehab)? @ -No Was there de-escalation of care discussed even if they declined (Discuss DNR or withdrawal of care, Hospice)? DNR status @ -No What co-morbidities impacted this encounter? (DM, HTN, Smoking, COPD, CAD, Cancer, CVA, ARF, Chemo, Hep., AIDS, mental health diagnosis, sleep apnea, morbid obesity)? @ -None Was patient admitted / discharged? Hospital course, mention meds given and route, prescriptions, significant lab abnormalities, going to OR and other pertinent info. @ -Patient reevaluated. Patient will be admitted for dyspnea with pulmonary consult. Admission orders written. Undiagnosed new problem with uncertain prognosis? @ -No Drug Therapy requiring intensive monitoring for toxicity (Heparin, Nitro, Insulin, Cardizem)? @ -No Were any procedures done? @ -No Diagnosis/symptom? @ -Dyspnea Acute, or Chronic, or Acute on Chronic? @ -Acute Uncomplicated (without systemic symptoms) or Complicated (systemic symptoms)? @ -default Side effects of treatment? @ -No Exacerbation, Progression, or Severe Exacerbation? @ -No Poses a threat to life or bodily function? How? (Chest pain, USA, DC, pneumonia, PE, COPD, DKA, ARF, appy, cholecystitis, CVA, Diverticulitis, Homicidal, Suicidal, threat to staff... and all critical care pts) @ -No (Michael Ayala) - Lab Data Lab Results 05/24/23 05/24/23 05/24/23 Range/Units 18:35 18:35 18:35 WBC (3.8-10.6) k/uL RBC (3.80-5.40) m/uL Hgb (11.4-16.0) gm/dL Hct (34.0-46.0) % MCV (80.0-100.0) fL MCH (25.0-35.0) pg MCHC (31.0-37.0) g/dL RDW (11.5-15.5) % Plt Count (150-450) k/uL MPV Neutrophils % % Lymphocytes % % Monocytes % % Eosinophils % % Basophils % % Neutrophils # (1.3-7.7) k/uL Lymphocytes # (1.0-4.8) k/uL Monocytes # (0-1.0) k/uL Eosinophils # (0-0.7) k/uL Basophils # (0-0.2) k/uL PT 10.6 (10.0-12.5) sec INR 1.0 (<1.2) APTT 24.6 (22.0-30.0) sec Sodium 140 (137-145) mmol/L Potassium 5.0 (3.5-5.1) mmol/L Chloride 97 L (98-107) mmol/L Carbon Dioxide 33 H (22-30) mmol/L Anion Gap 10 mmol/L BUN 22 H (7-17) mg/dL Creatinine 0.97 (0.52-1.04) mg/dL Est GFR (CKD-EPI)AfAm 64 (>60 ml/min/1.73 sqM) Est GFR (CKD-EPI)NonAf 55 (>60 ml/min/1.73 sqM) Glucose 134 H (74-99) mg/dL Calcium 9.2 (8.4-10.2) mg/dL Total Bilirubin 1.0 (0.2-1.3) mg/dL AST 34 (14-36) U/L ALT 21 (4-34) U/L Alkaline Phosphatase 72 (38-126) U/L Troponin I <0.012 (0.000-0.034) ng/mL Total Protein 7.6 (6.3-8.2) g/dL Albumin 4.0 (3.5-5.0) g/dL 05/24/23 Range/Units 18:36 WBC 4.0 (3.8-10.6) k/uL RBC 3.84 (3.80-5.40) m/uL Hgb 11.3 L (11.4-16.0) gm/dL Hct 34.1 (34.0-46.0) % MCV 88.9 (80.0-100.0) fL MCH 29.4 (25.0-35.0) pg MCHC 33.1 (31.0-37.0) g/dL RDW 14.1 (11.5-15.5) % Plt Count 219 (150-450) k/uL MPV 7.7 Neutrophils % 63 % Lymphocytes % 20 % Monocytes % 7 % Eosinophils % 7 % Basophils % 1 % Neutrophils # 2.6 (1.3-7.7) k/uL Lymphocytes # 0.8 L (1.0-4.8) k/uL Monocytes # 0.3 (0-1.0) k/uL Eosinophils # 0.3 (0-0.7) k/uL Basophils # 0.0 (0-0.2) k/uL PT (10.0-12.5) sec INR (<1.2) APTT (22.0-30.0) sec Sodium (137-145) mmol/L Potassium (3.5-5.1) mmol/L Chloride (98-107) mmol/L Carbon Dioxide (22-30) mmol/L Anion Gap mmol/L BUN (7-17) mg/dL Creatinine (0.52-1.04) mg/dL Est GFR (CKD-EPI)AfAm (>60 ml/min/1.73 sqM) Est GFR (CKD-EPI)NonAf (>60 ml/min/1.73 sqM) Glucose (74-99) mg/dL Calcium (8.4-10.2) mg/dL Total Bilirubin (0.2-1.3) mg/dL AST (14-36) U/L ALT (4-34) U/L Alkaline Phosphatase (38-126) U/L Troponin I (0.000-0.034) ng/mL Total Protein (6.3-8.2) g/dL Albumin (3.5-5.0) g/dL Disposition <Irlanda Clemente - Last Filed: 05/24/23 17:48> Is patient prescribed a controlled substance at d/c from ED?: No Time of Disposition: 20:22 <Michael Ayala - Last Filed: 05/24/23 20:22> Clinical Impression: Dyspnea Disposition: ADMITTED IP TO THIS HOSP Referrals: Billy Saul MD [Primary Care Provider] - 1-2 days
[2023-05-24 18:46] LABS: Basophils % (A) 1 %; Eosinophils # (A) 0.3 k/uL (0-0.7); Eosinophils % (A) 7 %; HCT 34.1 % (34.0-46.0); HGB 11.3 gm/dL (11.4-16.0); Lymphocytes # (A) 0.8 k/uL (1.0-4.8); Lymphocytes % (A) 20 %; MCH 29.4 pg (25.0-35.0); MCHC 33.1 g/dL (31.0-37.0); MCV 88.9 fL (80.0-100.0); Mean Platelet Volume 7.7; Monocytes # (A) 0.3 k/uL (0-1.0); Monocytes % (A) 7 %; Neutrophils # (A) 2.6 k/uL (1.3-7.7); Neutrophils % (A) 63 %; Platelet Count 219 k/uL (150-450); RBC 3.84 m/uL (3.80-5.40); RDW 14.1 % (11.5-15.5)
[2023-05-24 18:56] LABS: ALT 21 U/L (4-34); African American GFR (CKD) 64 (>60 ml/min/1.73 sqM); Anion Gap 10 mmol/L; Blood Urea Nitrogen 22 mg/dL (7-17); Calcium 9.2 mg/dL (8.4-10.2); Carbon Dioxide 33 mmol/L (22-30); Chloride 97 mmol/L (98-107); Glucose 134 mg/dL (74-99); Non-African American GFR(CKD) 55 (>60 ml/min/1.73 sqM); Sodium 140 mmol/L (137-145)
--- NOTE | 2023-05-24 18:56 | XR ---
EXAMINATION TYPE: XR chest 2V DATE OF EXAM: 05/24/2023 COMPARISON: 10/15/2022 HISTORY: 83-year-old female difficulty breathing, shortness of breath TECHNIQUE: AP and lateral views FINDINGS: Patient is prominently rotated towards the left ultra myocardial mediastinal contours. Heart appears mildly enlarged. There appear to be underlying small pleural effusions. Hyperinflation. Diffuse inter stitial and vascular prominence. IMPRESSION: Limited, rotated exam. COPD. Correlate for superimposed CHF with mild pulmonary vascular congestion a nd trace pleural effusions.
[2023-05-24 19:12] LABS: AST 34 U/L (14-36); Total Protein 7.6 g/dL (6.3-8.2)
[2023-05-24 19:13] LABS: Alkaline Phosphatase 72 U/L (38-126)
[2023-05-24 19:28] LABS: Partial Thromboplastin Time 24.6 sec (22.0-30.0); Prothrombin Time 10.6 sec (10.0-12.5)
[2023-05-24] MEDS ORDERED: IPRATROPIUM-ALBUTEROL 3 ML NEB INHALATION STA (20:04)
[2023-05-24] MEDS ORDERED: IPRATROPIUM-ALBUTEROL 3 ML NEB INHALATION PRN (20:22)
[2023-05-24] MEDS ORDERED: methylPREDNISolone SOD SUCCI 125 MG/2 ML VIAL IV STA (20:22)
[2023-05-24] MEDS ORDERED: NALOXONE 0.4 MG/ML 1 ML VIAL IVP PRN (20:22)
[2023-05-24] MEDS ORDERED: ACETAMINOPHEN TAB 325 MG TAB PO PRN (20:22)
[2023-05-25] MEDS ORDERED: HYDROcodone/APAP 10-325MG 1 EACH TAB PO PRN (00:27)
[2023-05-25] MEDS ORDERED: RX INFO: IV CONTRAST WAS GIVEN 1 EACH MISC MISCELLANE PRN (00:39)
[2023-05-25] MEDS ORDERED: ALPRAZolam 0.5 MG TAB PO PRN (01:00)
--- NOTE | 2023-05-25 01:39 | HP ---
HISTORY AND PHYSICAL HISTORY OF PRESENT ILLNESS: This 83-year-old white female came to the hospital with shortness of breath, failed outpatient treatment for the past 2 to 3 weeks. History of lung cancer, history of use of oxygen at home. Use CPAP machine probably. She is currently on 3 L, did not help her breathing. She was admitted with steroids, doxycycline. HOME MEDICINES: Reviewed. FAMILY HISTORY: Reviewed. ALLERGIES: Removed. PAST MEDICAL HISTORY: Asthma, coronary artery disease, COPD, dyslipidemia, hypertension, osteoarthritis, pneumonia, respiratory failure, and pleural effusion. PAST SURGICAL HISTORY: Appendectomy, bowel resection, eye surgery, heart catheterization with stent, hernia repair, hysterectomy, and tonsillectomy. PHYSICAL EXAMINATION: VITAL SIGNS: Stable, afebrile. CARDIOVASCULAR: S1, S2. LUNGS: Transmitted upper breath sounds. GI: Soft. HEMATOLOGY: Negative for Homans. PSYCH: Fair mood and affect. NEUROLOGIC: Cranial nerves intact. PSYCH: Fair mood and affect. HEENT: Pupils equal, round, and reactive. LABORATORY DATA: BUN is 22, creatinine 0.97. White count 4, hemoglobin is 11.3. ASSESSMENT: COPD exacerbation, acute hypoxemic respiratory failure, tracheobronchitis. CT chest is pending as well as pending IV steroids, updrafts, doxycycline. Prognosis guarded. MMODL / IJN: [id number] /
[2023-05-25] MEDS: DOXYCYCLINE 100 MG CAP PO SCH ×3 (01:57→20:36)
[2023-05-25] MEDS: methylPREDNISolone SOD SUCCI 125 MG/2 ML VIAL IV SCH ×4 (01:57→20:36)
[2023-05-25] MEDS: carvediloL 12.5 MG TAB PO SCH ×2 (06:17→18:40)
[2023-05-25] MEDS ORDERED: IPRATROPIUM-ALBUTEROL 3 ML NEB INHALATION SCH (08:00)
[2023-05-25] MEDS ORDERED: BUDESONIDE 1 MG/2 ML NEBU INHALATION SCH (08:00)
--- NOTE | 2023-05-25 08:20 | CT ---
EXAMINATION TYPE: CT chest w con DATE OF EXAM: 05/25/2023 COMPARISON: 02/21/2023 HISTORY: COPD exacerbation CT DLP: 553.9 mGycm, Automated exposure control for dose reduction was used. CONTRAST: Performed injected with 80 mL of Isovue 300. TECHNIQUE: Axial images were obtained at 5 mm thick sections. Reconstructed images are reviewed on [employer] computer in the coronal plane. FINDINGS: Portion of the thyroid visualized is normal. No suspicious lung nodules or focal infiltrates are present. Postsurgical changes with a smaller righ t lung volume is evident. This is stable from comparison. No enlarged mediastinal or hilar adenopathy is evident. The ascending aorta diameter at the level o f the main pulmonary artery is 3.2 cm. The main pulmonary artery diameter at the bifurcation is 2.2 cm. Coronary artery vascular calcification appears to be present. Limited CT sections are obtained through the upper abdomen. Abdomen is essentially unremarkable. IMPRESSION: 1. No acute pulmonary process. 2. Chronic emphysematous changes are present.
[2023-05-25] MEDS: IPRATROPIUM-ALBUTEROL 3 ML NEB INHALATION SCH ×4 (08:25→19:42)
[2023-05-25] MEDS: FORMOTEROL FUMARATE 20 MCG/2 ML NEBU INHALATION SCH ×2 (08:25→19:42)
[2023-05-25] MEDS: BUDESONIDE 0.5 MG/2 ML NEBU INHALATION SCH ×2 (08:25→19:42)
[2023-05-25] MEDS: CLOPIDOGREL 75 MG TAB PO SCH (08:47)
[2023-05-25] MEDS: ATORVASTATIN 40 MG TAB PO SCH (08:48)
[2023-05-25] MEDS: POTASSIUM CHLORIDE ER 20 MEQ TAB.ER PO SCH (08:48)
[2023-05-25] MEDS: LORATADINE 10 MG TAB PO SCH (08:48)
[2023-05-25] MEDS: MONTELUKAST 10 MG TAB PO SCH (08:48)
[2023-05-25] MEDS: CHOLECALCIFEROL 25 MCG (1000 IU) TABLET PO SCH (08:48)
[2023-05-25] MEDS: FUROSEMIDE 40 MG TAB PO SCH (08:48)
[2023-05-25] MEDS ORDERED: FAMOTIDINE 20 MG TAB PO SCH (09:00)
[2023-05-25] MEDS: polyethylene glycoL 3350 17 GM POWD.PACK PO SCH (09:26)
--- NOTE | 2023-05-25 12:41 | CA ---
Transthoracic Echo Report Name: Jana Arellano Age: 83 Gender: F : 1940 Exam Date: 05/25/2023 10:51 Exam Location: [facility] Ht (in): 62 Wt (lb): 200 Ordering Physician: Billy Saul MD Attending/Referring Phys: Licsw Zoë Walton RDCS Procedure CPT: Indications: dyspnea Cardiac Hx: Technical Quality: Fair Contrast 1: Total Dose (mL): Contrast 2: Total Dose (mL): MEASUREMENTS (Male / Female) Normal Values 2D ECHO LV Diastolic Diameter PLAX 3.8 cm 4.2 - 5.9 / 3.9 - 5.3 cm LV Systolic Diameter PLAX 2.3 cm IVS Diastolic Thickness 1.2 cm 0.6 - 1.0 / 0.6 - 0.9 cm LVPW Diastolic Thickness 1.2 cm 0.6 - 1.0 / 0.6 - 0.9 cm LV Relative Wall Thickness 0.6 LA Volume 41.3 cm??? 18 - 58 / 22 - 52 cm??? LA Volume Index 20.3 cm???/m??? 16 - 28 cm???/m??? M-MODE Aortic Root Diameter MM 3.1 cm LA Systolic Diameter MM 3.7 cm LA Ao Ratio MM 1.2 AV Cusp Separation MM 1.1 cm DOPPLER AV Peak Velocity 126.8 cm/s AV Peak Gradient 6.4 mmHg AV Mean Velocity 97.4 cm/s AV Mean Gradient 4.0 mmHg AV Velocity Time Integral 26.7 cm LVOT Peak Velocity 93.9 cm/s LVOT Peak Gradient 3.5 mmHg LVOT Velocity Time Integral 17.2 cm FINDINGS Left Ventricle Mildly increased left ventricular wall thickness. Left ventricular cavity size normal. Normal left ventricular systolic function with no obvious regional wall motion abnormalities. Left ventricular ejection fraction is estimated at 55-60 %. Right Ventricle Right ventricle not well visualized. Right Atrium Normal right atrial size. Left Atrium Normal left atrial size. Mitral Valve Structurally normal mitral valve. No mitral stenosis, regurgitation or prolapse.mitral annular calcification. Aortic Valve Aortic valve not well visualized. Tricuspid Valve Tricuspid valve not well visualized. Pulmonic Valve Pulmonic valve not well visualized. Pericardium No pericardial effusion. Aorta Normal size aortic root and proximal ascending aorta. CONCLUSIONS 1. Normal left ventricular size and systolic function 2. Limited Doppler study with no gross abnormalities Previewed by: Dr. Alexsander Durant MD (Electronically Signed) Final Date: 25 May 2023 12:41
--- NOTE | 2023-05-25 22:12 | PN ---
PROGRESS NOTE SUBJECTIVE: Admitted with COPD exacerbation, tracheobronchitis, given IV steroids, updraft treatments. CAT scan shows COPD. She has had history of lung cancer x2, lobectomies in the past. She is in for respiratory distress. Hemoglobin is 11.3, white count is 4, CO2 is 33. She may need a CPAP machine at home instead of oxygen. OBJECTIVE: LUNGS: Scattered wheeze and rhonchi. CARDIOVASCULAR: S1, S2. HEMATOLOGY: Negative for Homans. VITAL SIGNS: She has 95 oxygen level on 2 L, blood pressure was 120s/60s, temp 97.8, pulse 97, respiratory rate 16 to 18. PLAN: Continue with IV steroids, updrafts, IV antibiotics. Prognosis guarded. MMODL / IJN: [id number] /
[2023-05-26] MEDS: methylPREDNISolone SOD SUCCI 125 MG/2 ML VIAL IV SCH ×2 (03:38→09:16)
[2023-05-26] MEDS: carvediloL 12.5 MG TAB PO SCH (06:10)
[2023-05-26] MEDS: BUDESONIDE 0.5 MG/2 ML NEBU INHALATION SCH (08:15)
[2023-05-26] MEDS: FORMOTEROL FUMARATE 20 MCG/2 ML NEBU INHALATION SCH (08:15)
[2023-05-26] MEDS: IPRATROPIUM-ALBUTEROL 3 ML NEB INHALATION SCH ×2 (08:15→11:36)
[2023-05-26] MEDS ORDERED: FAMOTIDINE 20 MG TAB PO SCH (09:00)
[2023-05-26 09:13] VITALS: BP 139/65; PULSE 89; RESP 19; TEMP 98
[2023-05-26] MEDS: FUROSEMIDE 40 MG TAB PO SCH (09:14)
[2023-05-26] MEDS: ATORVASTATIN 40 MG TAB PO SCH (09:15)
[2023-05-26] MEDS: CLOPIDOGREL 75 MG TAB PO SCH (09:15)
[2023-05-26] MEDS: LORATADINE 10 MG TAB PO SCH (09:15)
[2023-05-26] MEDS: CHOLECALCIFEROL 25 MCG (1000 IU) TABLET PO SCH (09:15)
[2023-05-26] MEDS: POTASSIUM CHLORIDE ER 20 MEQ TAB.ER PO SCH (09:15)
[2023-05-26] MEDS: DOXYCYCLINE 100 MG CAP PO SCH (09:15)
[2023-05-26] MEDS: MONTELUKAST 10 MG TAB PO SCH (09:15)
[2023-05-26] MEDS: polyethylene glycoL 3350 17 GM POWD.PACK PO SCH (09:16)
--- NOTE | 2023-05-26 10:15 | P.CNPUL ---
History of Present Illness Consult date: 05/26/23 Reason for consult: dyspnea, cough Chief complaint: Shortness of breath History of present illness: 83-year-old female presented with two-week history of increasing progressive shortness of breath associated with cough patient has been on home oxygen 3 L nasal cannula symptoms continued to get worse decided to come into hospital for further evaluation, patient does have a history of adenocarcinoma of right upper lobe status post a mediastinoscopy or robotic right upper lobe lobectomy with mediastinal lymph node dissection as well as recurrent right-sided pleural effusion requiring multiple thoracentesis. Other active medical problems include asthma cancer COPD dyslipidemia hypertension hypertensive cardiovascular disease osteoarthritis, coronary artery disease status post stent placement. On arrival patient had a chest x-ray suggestive of borderline cardiomegaly and small pleural effusion hyperinflated lung COPD-like changes. Computed tomography scan of the chest no acute pulmonary process however chronic emphysematous disease seen echocardiogram revealed ejection fraction of 55-60%, mild increase LV wall thickness left-sided ventricular cavity size normal. Labs significant for white cell count of 4000, hemoglobin and hematocrit 11/34 platelet count of 219,000 PT/INR within normal limits sodium 140 potassium 5 with hemoglobin hematocrit is 22/0.97 influenza A and B RSV and cold with 19 is negative patient is started on DuoNeb 4 times a day and as needed, continued on her home medications, doxycycline along with Solu-Medrol 60 every 6 hourly and continued on singular Review of Systems All systems: negative Past Medical History Past Medical History: Asthma, Coronary Artery Disease (CAD), Cancer, COPD, Hyperlipidemia, Hypertension, Osteoarthritis (OA), Pneumonia, Respiratory Disorder Additional Past Medical History / Comment(s): Adenocarcinoma of the right upper lobe, history of recurrent right-sided pleural effusion requiring multiple thoracentesis, coronary artery disease, chronic hypoxic respiratory failure maintained on O2, 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 History of Any Multi-Drug Resistant Organisms: None Reported Past Surgical History: Appendectomy, Bowel Resection, Ear Surgery, Heart Catheterization With Stent, Hernia Repair, Hysterectomy, Tonsillectomy Additional Past Surgical History / Comment(s): Colon/bowel surgery done in her 30's-21 inches removed, bilateral cataracts removed, bilateral laser eye surgery, hemorroidectomy, hiatal hernia, robotic rt upper lobectomy w/mediasti nal lymph node dissection, 1 cardiac stent Past Anesthesia/Blood Transfusion Reactions: No Reported Reaction Additional Past Anesthesia/Blood Transfusion Reaction / Comment(s): no hx blood transfusion Date of Last Stent Placement:: 01/01/18 Past Psychological History: No Psychological Hx Reported Additional Psychological History / Comment(s): . Smoking Status: Former smoker Past Alcohol Use History: None Reported Additional Past Alcohol Use History / Comment(s): quit smoking 07/18/17 smoked since age 20 1 1/2ppd Past Drug Use History: None Reported - Past Family History Father Family Medical History: CVA/TIA, Myocardial Infarction (CA) Mother Family Medical History: Cancer Additional Family Medical History / Comment(s): bowel cancer Medications and Allergies Home Medications Medication Instructions Recorded Confirmed Type ALPRAZolam [Xanax] 0.5 mg PO TID PRN 03/19/14 05/24/23 History Montelukast [Singulair] 10 mg PO DAILY 09/15/17 05/24/23 History Albuterol Inhaler [Ventolin Hfa 2 puff INHALATION RT-Q4H PRN 10/30/17 05/24/23 History Inhaler] Clopidogrel [Plavix] 75 mg PO DAILY #90 tab 01/01/18 05/24/23 Rx Cholecalciferol [Vitamin D3 (25 25 mcg PO DAILY 04/27/21 05/24/23 History Mcg = 1000 Iu)] Famotidine [Pepcid] 40 mg PO BID 04/27/21 05/24/23 History Furosemide [Lasix] 40 mg PO DAILY 04/27/21 05/24/23 History HYDROcodone/APAP 10-325MG [[place] 1 tab PO TID PRN 10/15/22 05/24/23 History 10-325] Nystatin 100,000Unit/gm Cream 1 applic TOPICAL BID PRN 10/15/22 05/24/23 History [Mycostatin Cream] Atorvastatin [Lipitor] 40 mg PO DAILY 90 Days #90 tab 10/19/22 05/24/23 Rx Budesonide [Pulmicort] 0.5 mg INHALATION RT-BID 05/24/23 05/24/23 History Ipratropium-Albuterol Nebulize 3 ml INHALATION RT-QID 05/24/23 05/24/23 History [Duoneb 0.5 mg-3 mg/3 ml Soln] Loratadine [Claritin] 10 mg PO DAILY 05/24/23 05/24/23 History Nystatin 100,000 Unit/gm Powd 1 applic TOPICAL BID PRN 05/24/23 05/24/23 History [Mycostatin Powder] Potassium Chloride ER [K-Dur 20] 20 meq PO DAILY 05/24/23 05/24/23 History carvediloL [Coreg] 12.5 mg PO BID 05/24/23 05/24/23 History polyethylene glycoL 3350 [Miralax] 17 gm PO DAILY 05/24/23 05/24/23 History Allergies Allergy/AdvReac Type Severity Reaction Status Date / Time Penicillins Allergy Rash/Hives Verified 05/24/23 21:49 Physical Exam Vitals: Vital Signs Temp Pulse Pulse Pulse Pulse Pulse Resp 05/26/23 08:20 98 F 89 19 05/26/23 02:00 98.1 F 62 15 05/25/23 20:08 80 05/25/23 19:57 82 05/25/23 19:43 97 05/25/23 19:12 97.7 F 96 15 05/25/23 18:30 99 105 H 96 05/25/23 15:58 76 05/25/23 15:46 72 05/25/23 14:22 97.8 F 97 16 05/25/23 13:27 97.6 F 88 16 05/25/23 12:10 88 05/25/23 11:58 88 BP BP BP BP Pulse Ox 05/26/23 08:20 139/65 99 05/26/23 02:00 134/61 98 05/25/23 20:08 05/25/23 19:57 05/25/23 19:43 05/25/23 19:12 139/88 97 05/25/23 18:30 126/79 132/84 101/53 05/25/23 15:58 05/25/23 15:46 05/25/23 14:22 121/69 95 05/25/23 13:27 132/75 95 05/25/23 12:10 05/25/23 11:58 Intake and Output 05/25/23 05/26/23 05/26/23 22:59 06:59 14:59 Other: Voiding Method Bedside Commode # Voids 1 2 - Constitutional General appearance: average body habitus, cooperative, disheveled, mild distress - EENT Eyes: EOMI, PERRLA ENT: normal oropharynx Ears: bilateral: normal - Neck Neck: normal ROM Carotids: bilateral: upstroke normal Thyroid: bilateral: normal size - Respiratory Respiratory: bilateral: CTA - Cardiovascular Rhythm: regular Heart sounds: normal: S1, S2 - Gastrointestinal General gastrointestinal: hyperactive bowel sounds, normal bowel sounds - Integumentary Integumentary: normal turgor - Neurologic Neurologic: CNII-XII intact - Musculoskeletal Musculoskeletal: gait normal, generalized weakness, strength equal bilaterally - Psychiatric Psychiatric: A&O x's 3, appropriate affect, intact judgment & insight Results - Laboratory Findings CBC and BMP: 05/24/23 18:36 05/24/23 18:35 PT/INR, D-dimer PT 10.6 sec (10.0-12.5) 05/24/23 18:35 INR 1.0 (<1.2) 05/24/23 18:35 Abnormal lab findings: Abnormal Labs 05/24/23 05/24/23 18:35 18:36 Hgb 11.3 L Lymphocytes # 0.8 L Chloride 97 L Carbon Dioxide 33 H BUN 22 H Glucose 134 H - Diagnostic Findings Chest x-ray: report reviewed, image reviewed CT scan - chest: report reviewed, image reviewed Assessment and Plan Assessment: Acute on chronic hypoxic respiratory failure Acute COPD exacerbation Tracheobronchitis History of a adenocarcinoma of the lung status post right upper lobe resection with lymph node dissection Acute on chronic diastolic heart failure Coronary artery disease status post and placement Plan: Continue IV steroids Bronchodilators Broad-spectrum antibiotics Continue high-intensity statins Gentle diuresis
== END 2023-05-26 14:23 | disposition home or self-care (01) | DRG 291 ==
LOC: EC 16:29 → 6NMEDSUR 20:22
PROVIDERS: ADMIT Family Medicine; ATTEND Family Medicine
DX: I11.0 Hypertensive heart disease with heart failure (principal); I50.33 Acute on chronic diastolic (congestive) heart failure; J96.21 Acute and chronic respiratory failure with hypoxia; J44.1 Chronic obstructive pulmonary disease with (acute) exacerbation; E78.5 Hyperlipidemia, unspecified; I25.10 Atherosclerotic heart disease of native coronary artery without angina pectoris; M19.90 Unspecified osteoarthritis, unspecified site; Z79.02 Long term (current) use of antithrombotics/antiplatelets; Z79.82 Long term (current) use of aspirin; Z79.899 Other long term (current) drug therapy; Z82.49 Family history of ischemic heart disease and other diseases of the circulatory system; Z85.118 Personal history of other malignant neoplasm of bronchus and lung; Z99.81 Dependence on supplemental oxygen; Z90.710 Acquired absence of both cervix and uterus; Z95.5 Presence of coronary angioplasty implant and graft; Z88.0 Allergy status to penicillin; Z87.891 Personal history of nicotine dependence
CPT/HCPCS: 36415; 71046; 71260; 80053; 83880; 84484; 85025; 85610; 85730; 87636; 93005; 93306; 94640; 96374; 99285

== ENCOUNTER 2023-10-10 00:57 | Inpatient (IN) | payer MEDICARE, OTHER ==
--- NOTE | 2023-10-10 01:17 | ED ---
SOB HPI - General Stated Complaint: FRANTZ Time Seen by Provider: 10/10/23 01:01 Source: EMS, RN notes reviewed, old records reviewed Mode of arrival: EMS Limitations: no limitations - History of Present Illness Initial Comments: This is an 83-year-old female to the ER for evaluation of worsening shortness of breath and cough. Patient comes in also for elevated heart rate lightheadedness shortness of breath, denying chest pain with decreased appetite and patient does admit to not drinking as much fluid as she should MD Complaint: shortness of breath, cough -: days(s) Severity: severe Severity scale (1-10): 7 Quality: sharp Consistency: intermittent Improves With: nothing Worsens With: exertion Known History Of: COPD, asthma Context: recent URI, recent illness Associated Symptoms: denies other symptoms - Related Data Home Medications Medication Instructions Recorded Confirmed ALPRAZolam [Xanax] 0.5 mg PO TID 03/19/14 10/10/23 Montelukast [Singulair] 10 mg PO DAILY 09/15/17 10/10/23 Famotidine [Pepcid] 40 mg PO BID 04/27/21 10/10/23 Furosemide [Lasix] 40 mg PO DAILY 04/27/21 10/10/23 Budesonide [Pulmicort] 0.5 mg INHALATION RT-BID 05/24/23 10/10/23 Ipratropium-Albuterol Nebulize 3 ml INHALATION RT-QID 05/24/23 10/10/23 [Duoneb 0.5 mg-3 mg/3 ml Soln] Loratadine [Claritin] 10 mg PO DAILY 05/24/23 10/10/23 Potassium Chloride ER [K-Dur 20] 20 meq PO DAILY 05/24/23 10/10/23 Previous Rx's Medication Instructions Recorded Aspirin 81 mg PO DAILY 90 Days #90 tab 10/13/23 Atorvastatin [Lipitor] 40 mg PO DAILY 90 Days #90 tab 10/13/23 Ciprofloxacin-Dexameth [Ciprodex 4 drops BOTH EARS BID 10 Days #5 ml 10/13/23 Otic Susp] Doxycycline [Vibramycin] 100 mg PO BID 7 Days #14 cap 10/13/23 Metoprolol Succinate (ER) [Toprol 25 mg PO DAILY 90 Days #90 tab 10/13/23 XL] Verapamil [Isoptin] 40 mg PO BID 90 Days #180 tab 10/13/23 Allergies Allergy/AdvReac Type Severity Reaction Status Date / Time Penicillins Allergy Rash/Hives Verified 10/10/23 09:12 Review of Systems ROS Statement: Those systems with pertinent positive or pertinent negative responses have been documented in the HPI. ROS Other: All systems not noted in ROS Statement are negative. 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 History of Any Multi-Drug Resistant Organisms: None Reported Past Surgical History: Appendectomy, Bowel Resection, Ear Surgery, Heart Catheterization With Stent, Hernia Repair, Hysterectomy, Tonsillectomy Additional Past Surgical History / Comment(s): Colon/bowel surgery done in her 30's-21 inches removed, bilateral cataracts removed, bilateral laser eye surgery, hemorroidectomy, hiatal hernia, robotic rt upper lobectomy w/m ediastinal lymph node dissection, 1 cardiac stent Past Anesthesia/Blood Transfusion Reactions: No Reported Reaction Additional Past Anesthesia/Blood Transfusion Reaction / Comment(s): no hx blood transfusion Date of Last Stent Placement:: 01/01/18 Past Psychological History: No Psychological Hx Reported Additional Psychological History / Comment(s): . Smoking Status: Former smoker Past Alcohol Use History: None Reported Additional Past Alcohol Use History / Comment(s): quit smoking 07/18/17 smoked since age 20 1 1/2ppd Past Drug Use History: None Reported - Past Family History Father Family Medical History: CVA/TIA, Myocardial Infarction ([place]) Mother Family Medical History: Cancer Additional Family Medical History / Comment(s): bowel cancer General Exam Limitations: no limitations General appearance: alert, in no apparent distress, anxious Head exam: Present: atraumatic, normocephalic, normal inspection Eye exam: Present: normal appearance, PERRL, EOMI. Absent: scleral icterus, conjunctival injection, periorbital swelling ENT exam: Present: normal exam, mucous membranes moist Neck exam: Present: normal inspection. Absent: tenderness, meningismus, lymphadenopathy Respiratory exam: Present: respiratory distress, wheezes. Absent: rales, rhonchi, stridor Cardiovascular Exam: Present: normal rhythm, tachycardia, normal heart sounds. Absent: systolic murmur, diastolic murmur, rubs, gallop, clicks GI/Abdominal exam: Present: soft, normal bowel sounds. Absent: distended, tenderness, guarding, rebound, rigid Extremities exam: Present: normal inspection, full ROM, normal capillary refill. Absent: tenderness, pedal edema, joint swelling, calf tenderness Back exam: Present: normal inspection Neurological exam: Present: alert, oriented X3, CN II-XII intact Psychiatric exam: Present: normal affect, normal mood Skin exam: Present: warm, dry, intact, normal color. Absent: rash Course Vital Signs 10/10/23 10/10/23 10/10/23 01:07 01:40 01:50 Temperature 98.3 F Pulse Rate 130 H 131 H 125 H Respiratory 18 Rate Blood Pressure 96/81 O2 Sat by Pulse 100 Oximetry 10/10/23 10/10/23 10/10/23 04:00 04:07 04:38 Temperature Pulse Rate 124 H 112 H 124 H Respiratory 20 Rate Blood Pressure 111/75 O2 Sat by Pulse 100 Oximetry 10/10/23 10/10/23 10/10/23 05:00 05:30 06:00 Temperature Pulse Rate 123 H 125 H 125 H Respiratory 22 21 25 H Rate Blood Pressure 99/79 119/79 106/84 O2 Sat by Pulse 99 98 Oximetry 10/10/23 10/10/23 10/10/23 06:30 06:39 07:45 Temperature Pulse Rate 125 H 125 H 68 Respiratory 24 24 20 Rate Blood Pressure 120/88 110/84 127/85 O2 Sat by Pulse 98 97 Oximetry 10/10/23 10/10/23 10/10/23 07:48 07:57 10:00 Temperature Pulse Rate 84 70 67 Respiratory 26 H Rate Blood Pressure 140/78 O2 Sat by Pulse 98 Oximetry 10/10/23 10/10/23 10/10/23 10:21 11:00 11:16 Temperature Pulse Rate 66 69 73 Respiratory 22 6 L 20 Rate Blood Pressure 134/66 134/70 135/66 O2 Sat by Pulse 98 97 96 Oximetry 10/10/23 10/10/23 10/10/23 11:42 11:50 12:00 Temperature Pulse Rate 68 70 68 Respiratory 14 Rate Blood Pressure 135/66 O2 Sat by Pulse 98 Oximetry 10/10/23 10/10/23 10/10/23 14:00 15:00 16:00 Temperature Pulse Rate 76 73 74 Respiratory 19 14 33 H Rate Blood Pressure 122/63 118/57 128/64 O2 Sat by Pulse 96 98 Oximetry 10/10/23 10/10/23 10/10/23 16:28 16:39 18:08 Temperature 98.2 F Pulse Rate 70 74 73 Respiratory 18 Rate Blood Pressure 138/79 O2 Sat by Pulse 100 Oximetry 10/10/23 10/10/23 10/10/23 19:31 19:46 19:57 Temperature Pulse Rate 69 65 65 Respiratory 19 Rate Blood Pressure 109/81 O2 Sat by Pulse 95 Oximetry 10/10/23 20:55 Temperature Pulse Rate 71 Respiratory 20 Rate Blood Pressure 147/75 O2 Sat by Pulse 96 Oximetry - Reevaluation(s) Reevaluation #1: 10/10/23 01:17 Medical records reviewed Reevaluation #2: 10/10/23 04:28 Patient's breathing is mildly improved and her blood pressure is soft Reevaluation #3: 10/10/23 04:29 Patient informed of results and questions answered Reevaluation #4: Was pt. sent in by a medical professional or institution (Dr. PA, TELEPHONE MESSENGER, urgent care, hospital, or skilled nursing...) When possible be specific @ -no Did you speak to anyone other than the patient for history (EMS, parent, family, police, friend...)? What history was obtained from this source @ -no Did you review nursing and triage notes (agree or disagree)? Why? @ -agree Are old charts reviewed (outside hosp., previous admission, EMS record, old EKG, old radiological studies, urgent care reports/EKG's, skilled nursing records)? Report findings @ -yes Differential Diagnosis (chest pain, altered mental status, abdominal pain women, abdominal pain men, vaginal bleeding, weakness, fever, dyspnea, syncope, headache, dizziness, GI bleed, back pain, seizure, CVA, palpatations, mental health, musculoskeletal)? @ -prior EKG interpreted by me (3pts min.). @ -yes X-rays interpreted by me (1pt min.). @ -yes negative for acute disease CT interpreted by me (1pt min.). @ -no U/S interpreted by me (1pt. min.). @ -no What testing was considered but not performed or refused? (CT, X-rays, U/S, labs)? Why? @ -none What meds were considered but not given or refused? Why? @ -none Did you discuss the management of the patient with other professionals (professionals i.e. DrMatias, PA, TELEPHONE MESSENGER, lab, RT, psych nurse, social work instructor, data transcriber, teacher, community service officer coordinator, case resolution specialist)? Give summary @ -no Was smoking cessation discussed for >3mins.? @ -no Was critical care preformed (if so, how long)? @ -yes31 Were there social determinants of health that impacted care today? How? (Homelessness, low income, unemployed, alcoholism, drug addiction, chandler sportation, low edu. Level, literacy, decrease access to med. care, intermediate, rehab)? @ -none Was there de-escalation of care discussed even if they declined (Discuss DNR or withdrawal of care, Hospice)? DNR status @ -no What co-morbidities impacted this encounter? (DM, HTN, Smoking, COPD, CAD, Cancer, CVA, ARF, Chemo, Hep., AIDS, mental health diagnosis, sleep apnea, morbid obesity)? @ -none Was patient admitted / discharged? Hospital course, mention meds given and route, prescriptions, significant lab abnormalities, going to OR and other pertinent info. @ - 83 female in severe respiratory distress with significant tachycardia coming in for shortness of breath tonight. Patient's breathing is improved here in the emergency department but still having a difficult time and mild chest pain. Patient is feeling lightheaded dizzy and weak with elevated heart rate., patient be admitted for further supportive care Admitted Undiagnosed new problem with uncertain prognosis? @ -no Drug Therapy requiring intensive monitoring for toxicity (Heparin, Nitro, Insulin, Cardizem)? @ -no Were any procedures done? @ -no Diagnosis/symptom? @ -Respiratory distress, tachycardia COPD and asthma Acute, or Chronic, or Acute on Chronic? @ -Acute Uncomplicated (without systemic symptoms) or Complicated (systemic symptoms)? @ -Complicated Side effects of treatment? @ -no Exacerbation, Progression, or Severe Exacerbation? @ -exacerbation Poses a threat to life or bodily function? How? (Chest pain, [place], [place], pneumonia, PE, COPD, DKA, ARF, appy, cholecystitis, CVA, Diverticulitis, Homicidal, Suici escobar, threat to staff... and all critical care pts) @ -yes severe respiratory distress Reevaluation #5: Differential Dyspnea: Coronary syndrome, arrhythmia, tamponade, asthma, COPD, pulmonary embolism, pneumonia, pneumothorax, pulmonary effusion, anaphylaxis, diabetic ketoacidosis, flailed chest, pulmonary contusion, diaphragmatic rupture, anemia, neuromuscular, this is not meant to be an all-inclusive list. - Consultations Consultation #1: Spoke with Dr. Bond regarding patient, he agrees to admit this patient Medical Decision Making - Medical Decision Making 83 female in severe respiratory distress with significant tachycardia coming in for shortness of breath tonight. Patient's breathing is improved here in the emergency department but still having a difficult time and mild chest pain. Patient is feeling lightheaded dizzy and weak with elevated heart rate., patient be admitted for further supportive care - Lab Data Result diagrams: 10/11/23 05:02 10/11/23 05:02 Lab Results 10/10/23 10/10/23 10/10/23 Range/Units 01:49 01:49 01:49 WBC 7.5 (3.8-10.6) k/uL RBC 3.56 L (3.80-5.40) m/uL Hgb 9.8 L (11.4-16.0) gm/dL Hct 31.2 L (34.0-46.0) % MCV 87.7 (80.0-100.0) fL MCH 27.6 (25.0-35.0) pg MCHC 31.5 (31.0-37.0) g/dL RDW 14.6 (11.5-15.5) % Plt Count 100 L (150-450) k/uL MPV 8.6 Neutrophils % 64 % Lymphocytes % 24 % Monocytes % 6 % Eosinophils % 3 % Basophils % 1 % Neutrophils # 4.8 (1.3-7.7) k/uL Lymphocytes # 1.8 (1.0-4.8) k/uL Monocytes # 0.5 (0-1.0) k/uL Eosinophils # 0.3 (0-0.7) k/uL Basophils # 0.0 (0-0.2) k/uL PT 10.7 (10.0-12.5) sec INR 1.0 (<1.2) APTT 21.1 L (22.0-30.0) sec Sodium 136 L (137-145) mmol/L Potassium 4.3 (3.5-5.1) mmol/L Chloride 102 (98-107) mmol/L Carbon Dioxide 24 (22-30) mmol/L Anion Gap 10 mmol/L BUN 29 H (7-17) mg/dL Creatinine 1.22 H (0.52-1.04) mg/dL Est GFR (CKD-EPI)AfAm 48 (>60 ml/min/1.73 sqM) Est GFR (CKD-EPI)NonAf 42 (>60 ml/min/1.73 sqM) Glucose 144 H (74-99) mg/dL Plasma Lactic Acid Zacarias (0.7-2.0) mmol/L Calcium 8.8 (8.4-10.2) mg/dL Magnesium 2.1 (1.6-2.3) mg/dL Total Bilirubin 1.0 (0.2-1.3) mg/dL AST 22 (14-36) U/L ALT 15 (4-34) U/L Alkaline Phosphatase 87 (38-126) U/L Troponin I (0.000-0.034) ng/mL NT-Pro-B Natriuret Pep 9820 pg/mL Total Protein 6.8 (6.3-8.2) g/dL Albumin 3.7 (3.5-5.0) g/dL Procalcitonin (0.02-0.09) ng/mL 10/10/23 10/10/23 10/10/23 Range/Units 01:49 01:49 01:49 WBC (3.8-10.6) k/uL RBC (3.80-5.40) m/uL Hgb (11.4-16.0) gm/dL Hct (34.0-46.0) % MCV (80.0-100.0) fL MCH (25.0-35.0) pg MCHC (31.0-37.0) g/dL RDW (11.5-15.5) % Plt Count (150-450) k/uL MPV Neutrophils % % Lymphocytes % % Monocytes % % Eosinophils % % Basophils % % Neutrophils # (1.3-7.7) k/uL Lymphocytes # (1.0-4.8) k/uL Monocytes # (0-1.0) k/uL Eosinophils # (0-0.7) k/uL Basophils # (0-0.2) k/uL PT (10.0-12.5) sec INR (<1.2) APTT (22.0-30.0) sec Sodium (137-145) mmol/L Potassium (3.5-5.1) mmol/L Chloride (98-107) mmol/L Carbon Dioxide (22-30) mmol/L Anion Gap mmol/L BUN (7-17) mg/dL Creatinine (0.52-1.04) mg/dL Est GFR (CKD-EPI)AfAm (>60 ml/min/1.73 sqM) Est GFR (CKD-EPI)NonAf (>60 ml/min/1.73 sqM) Glucose (74-99) mg/dL Plasma Lactic Acid Zacarias 1.4 (0.7-2.0) mmol/L Calcium (8.4-10.2) mg/dL Magnesium (1.6-2.3) mg/dL Total Bilirubin (0.2-1.3) mg/dL AST (14-36) U/L ALT (4-34) U/L Alkaline Phosphatase (38-126) U/L Troponin I 0.032 (0.000-0.034) ng/mL NT-Pro-B Natriuret Pep pg/mL Total Protein (6.3-8.2) g/dL Albumin (3.5-5.0) g/dL Procalcitonin 0.11 H (0.02-0.09) ng/mL - EKG Data -: EKG Interpreted by Me (EKG sinus tachycardia 131 CT 185 QRS 137 QTc 373) - Radiology Data Radiology results: report reviewed (Chest x-ray is negative for acute disease), image reviewed Critical Care Time Critical Care Time: Yes Total Critical Care Time: 31 Disposition Clinical Impression: COPD exacerbation, Supraventricular tachycardia, Dyspnea, Asthma, Obesity, COPD (chronic obstructive pulmonary disease), Tachycardia Disposition: ADMITTED IP TO THIS [facility] Condition: Serious Is patient prescribed a controlled substance at d/c from ED?: No Time of Disposition: 04:30
[2023-10-10] MEDS: IPRATROPIUM-ALBUTEROL 3 ML NEB INHALATION STA ×2 (01:38→03:42)
[2023-10-10 02:07] LABS: Basophils % (A) 1 %; Eosinophils # (A) 0.3 k/uL (0-0.7); Eosinophils % (A) 3 %; HCT 31.2 % (34.0-46.0); HGB 9.8 gm/dL (11.4-16.0); Lymphocytes # (A) 1.8 k/uL (1.0-4.8); Lymphocytes % (A) 24 %; MCH 27.6 pg (25.0-35.0); MCHC 31.5 g/dL (31.0-37.0); MCV 87.7 fL (80.0-100.0); Mean Platelet Volume 8.6; Monocytes # (A) 0.5 k/uL (0-1.0); Monocytes % (A) 6 %; Neutrophils # (A) 4.8 k/uL (1.3-7.7); Neutrophils % (A) 64 %; Platelet Count 100 k/uL (150-450); RBC 3.56 m/uL (3.80-5.40); RDW 14.6 % (11.5-15.5); WBC 7.5 k/uL (3.8-10.6)
[2023-10-10 02:14] LABS: Partial Thromboplastin Time 21.1 sec (22.0-30.0); Prothrombin Time 10.7 sec (10.0-12.5)
[2023-10-10] MEDS: SODIUM CHLORIDE 0.9% 1,000 ML IV STA ×3 (02:17→03:56)
[2023-10-10] MEDS: SODIUM CHLORIDE 0.9% 500 ML 500 ML IV STA (02:18)
[2023-10-10 02:19] LABS: Chloride 102 mmol/L (98-107)
[2023-10-10 02:22] LABS: ALT 15 U/L (4-34); AST 22 U/L (14-36); African American GFR (CKD) 48 (>60 ml/min/1.73 sqM); Albumin 3.7 g/dL (3.5-5.0); Alkaline Phosphatase 87 U/L (38-126); Anion Gap 10 mmol/L; Blood Urea Nitrogen 29 mg/dL (7-17); Calcium 8.8 mg/dL (8.4-10.2); Carbon Dioxide 24 mmol/L (22-30); Glucose 144 mg/dL (74-99); Magnesium 2.1 mg/dL (1.6-2.3); Non-African American GFR(CKD) 42 (>60 ml/min/1.73 sqM); Potassium 4.3 mmol/L (3.5-5.1); Sodium 136 mmol/L (137-145); Total Protein 6.8 g/dL (6.3-8.2)
[2023-10-10 02:30] LABS: NT-Pro-B-Type Natriuretic Pept 9820 pg/mL
--- NOTE | 2023-10-10 02:32 | XR ---
EXAMINATION TYPE: XR chest 1V portable DATE OF EXAM: 10/10/2023 COMPARISON: Prior chest CT May 25, 2023 and chest x-ray May 24, 2023 HISTORY: Difficulty breathing and palpitations. TECHNIQUE: Single frontal view of the chest is obtained. FINDINGS: There is background chronic emphysematous change redemonstrated without suspicious new foc al air space opacity, pleural effusion, or pneumothorax seen. Cardiomegaly again seen. The osseous structures are intact. IMPRESSION: Cardiomegaly and chronic emphysematous change without new acute pulmonary process.
[2023-10-10] MEDS: MORPHINE SULFATE 2 MG/ML SYRINGE IVP STA (03:56)
[2023-10-10] MEDS: LORazepam 2 MG/ML INJ IV STA (03:56)
[2023-10-10] MEDS ORDERED: NALOXONE 0.4 MG/ML 1 ML VIAL IV PRN (04:25)
[2023-10-10] MEDS ORDERED: MORPHINE SULFATE 4 MG/ML SYRINGE IV PRN (04:25)
[2023-10-10] MEDS ORDERED: ONDANSETRON 4 MG/2 ML VIAL IVP PRN (04:25)
[2023-10-10] MEDS: methylPREDNISolone SOD SUCCI 125 MG/2 ML VIAL IV STA (04:48)
[2023-10-10] MEDS: SODIUM CHLORIDE 0.9% 1,000 ML IV SCH (05:13)
[2023-10-10] MEDS: methylPREDNISolone SOD SUCCI 125 MG/2 ML VIAL IV SCH (05:13)
[2023-10-10] MEDS: ALBUTEROL NEBULIZED 2.5 MG/3 ML INHALATION PRN (07:48)
[2023-10-10] MEDS: DOXYCYCLINE 100 MG CAP PO SCH (09:45)
[2023-10-10] MEDS: IPRATROPIUM-ALBUTEROL 3 ML NEB INHALATION SCH (11:41)
--- NOTE | 2023-10-10 14:32 | P.CNPUL ---
History of Present Illness Consult date: 10/10/23 Requesting physician: Billy Saul Reason for consult: dyspnea, cough Chief complaint: Shortness of breath, cough, congestion History of present illness: This is a 83-year-old female patient with a known history of squamous cell carcinoma of the left lower lobe status post wedge resection in February 2022. She also has a history of previous right upper lobe resection for adenocarcinoma. She had had recurrent pleural effusions requiring thoracentesis in the past. She does have chronic hypoxic respiratory failure and usually maintained on oxygen at 2 L/min per nasal cannula. She has chronic obstructive pulmonary disease, coronary disease, hyperlipidemia, chronic tobacco dependence, obesity, osteoarthritis, hypertension. Her last CT scan of the chest was May 2023 that showed no suspicious lung nodules. No enlarged mediastinal or hilar adenopathy. No acute pulmonary process at that time. Chronic For somatic changes. She presented here to the emergency room early this morning with increasing shortness of breath cough and congestion. Poor oral intake. Chest x-ray reveals cardiomegaly and chronic and for somatic changes without any new acute pulmonary process. White count 7.5. Hemoglobin 9.8. Platelets 100,000. Sodium 136. Potassium 4.3. Bicarb 24. BUN 29. Creatinine 1.22. Glucose 144. proBNP 9820. Troponin negative x 1. She is seen today in consultation in the emergency department. She is currently sitting up on a stretcher. Awake and alert in no acute distress. Somewhat of a poor historian. She is currently maintaining O2 saturations in the 90s on 2 L/min per nasal cannula. She is afebrile. Hemodynamically stable. Review of Systems REVIEW OF SYSTEMS: CONSTITUTIONAL: Denies any recent significant weight loss or weight gain. EYES: Denies change in vision. EARS, NOSE, MOUTH, THROAT: Denies headaches, denies sore throat. CARDIOVASCULAR: Denies chest pain, palpitations or syncopal episodes. RESPIRATORY: Positive for shortness of breath, cough, congestion no hemoptysis. GASTROINTESTINAL: Poor appetite, denies abdominal pain GENITOURINARY: Denies hematuria, denies infections. MUSKULOSKELETAL: Denies pain, denies swelling. INTEGUMENTARY: Denies rash, denies eczema. NEUROLOGICAL: Denies recent memory loss, no recent seizure activity. PSYCHIATRIC: Denies anxiety, denies depression. HEMATOLOGIC/LYMPHATIC: Denies anemia, denies enlarged lymph nodes. 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 History of Any Multi-Drug Resistant Organisms: None Reported Past Surgical History: Appendectomy, Bowel Resection, Ear Surgery, Heart Catheterization With Stent, Hernia Repair, Hysterectomy, Tonsillectomy Additional Past Surgical History / Comment(s): Colon/bowel surgery done in her 30's-21 inches removed, bilateral cataracts removed, bilateral laser eye surgery, hemorroidectomy, hiatal hernia, robotic rt upper lobectomy w/mediastinal lymph node dissection, 1 cardiac stent Past Anesthesia/Blood Transfusion Reactions: No Reported Reaction Additional Past Anesthesia/Blood Transfusion Reaction / Comment(s): no hx blood transfusion Date of Last Stent Placement:: 01/01/18 Past Psychological History: No Psychological Hx Reported Additional Psychological History / Comment(s): . Smoking Status: Former smoker Past Alcohol Use History: None Reported Additional Past Alcohol Use History / Comment(s): quit smoking 07/18/17 smoked since age 20 1 12ppd Past Drug Use History: None Reported - Past Family History Father Family Medical History: CVA/TIA, Myocardial Infarction ([place]) Mother Family Medical History: Cancer Additional Family Medical History / Comment(s): bowel cancer Medications and Allergies Home Medications Medication Instructions Recorded Confirmed Type ALPRAZolam [Xanax] 0.5 mg PO TID 03/19/14 10/10/23 History Montelukast [Singulair] 10 mg PO DAILY 09/15/17 10/10/23 History Clopidogrel [Plavix] 75 mg PO DAILY #90 tab 01/01/18 10/10/23 Rx Famotidine [Pepcid] 40 mg PO BID 04/27/21 10/10/23 History Furosemide [Lasix] 40 mg PO DAILY 04/27/21 10/10/23 History HYDROcodone/APAP 10-325MG [[place] 1 tab PO TID 10/15/22 10/10/23 History 10-325] Budesonide [Pulmicort] 0.5 mg INHALATION RT-BID 05/24/23 10/10/23 History Ipratropium-Albuterol Nebulize 3 ml INHALATION RT-QID 05/24/23 10/10/23 History [Duoneb 0.5 mg-3 mg/3 ml Soln] Loratadine [Claritin] 10 mg PO DAILY 05/24/23 10/10/23 History Potassium Chloride ER [K-Dur 20] 20 meq PO DAILY 05/24/23 10/10/23 History carvediloL [Coreg] 12.5 mg PO BID 05/24/23 10/10/23 History Omeprazole [PriLOSEC] 40 mg PO HS 10/10/23 10/10/23 History Allergies Allergy/AdvReac Type Severity Reaction Status Date / Time Penicillins Allergy Rash/Hives Verified 10/10/23 09:12 Physical Exam Vitals: Vital Signs Temp Pulse Resp BP Pulse Ox 10/10/23 11:50 70 10/10/23 11:42 68 10/10/23 11:16 73 20 135/66 96 10/10/23 10:21 66 22 134/66 98 10/10/23 07:57 70 10/10/23 07:48 84 10/10/23 07:45 68 20 127/85 97 10/10/23 06:39 125 H 24 110/84 98 10/10/23 06:30 125 H 24 120/88 10/10/23 06:00 125 H 25 H 106/84 10/10/23 05:30 125 H 21 119/79 98 10/10/23 05:00 123 H 22 99/79 99 10/10/23 04:38 124 H 20 111/75 100 10/10/23 04:07 112 H 10/10/23 04:00 124 H 10/10/23 01:50 125 H 10/10/23 01:40 131 H 10/10/23 01:07 98.3 F 130 H 18 96/81 100 Intake and Output 10/09/23 10/10/23 10/10/23 22:59 06:59 14:59 Other: Weight 90.718 kg GENERAL EXAM: Alert, confused at times, 83-year-old female, on 2 L nasal cannula, comfortable in no apparent distress. HEAD: Normocephalic. EYES: Normal reaction of pupils, equal size. NOSE: Clear with pink turbinates. THROAT: No erythema or exudates. NECK: No masses, no JVD. CHEST: No chest wall deformity. LUNGS: Equal air entry with no crackles, wheeze, rhonchi or dullness. CVS: S1 and S2 normal with no audible murmur, regular rhythm. ABDOMEN: No hepatosplenomegaly, normal bowel sounds, no guarding or rigidity. SPINE: No scoliosis or deformity SKIN: No rashes CENTRAL NERVOUS SYSTEM: No focal deficits, tone is normal in all 4 extremities. EXTREMITIES: There is no peripheral edema. No clubbing, no cyanosis. Peripheral pulses are intact. Results - Laboratory Findings CBC and BMP: 10/10/23 01:49 10/10/23 01:49 PT/INR, D-dimer PT 10.7 sec (10.0-12.5) 10/10/23 01:49 INR 1.0 (<1.2) 10/10/23 01:49 Abnormal lab findings: Abnormal Labs 10/10/23 10/10/23 10/10/23 01:49 01:49 01:49 RBC 3.56 L Hgb 9.8 L Hct 31.2 L Plt Count 100 L APTT 21.1 L Sodium 136 L BUN 29 H Creatinine 1.22 H Glucose 144 H - Diagnostic Findings Chest x-ray: image reviewed Assessment and Plan Assessment: Acute on chronic hypoxemic respiratory failure secondary to an acute exacerbation of chronic obstructive pulmonary disease. Chest x-ray reveals no acute pulmonary process procalcitonin pending Chronic hypoxic respiratory failure currently on oxygen 2 L minute nasal cannula COPD, severe, currently inactive and stable with chronic exertional dyspnea Squamous cell carcinoma of the left lower lobe. The patient had a 1.2 cm mass in left lower lobe underwent wedge resection back in February 2022. Subsequent CAT scan of the chest from May 2023 showed no evidence of any tumor recurrence Early stage adenocarcinoma of the lung. The patient had a previous right upper lobe resection for adenocarcinoma History of recurrent right-sided pleural effusion requiring multiple thoracentesis, negative cytology, fluids recovered Coronary artery disease Hyperlipidemia Environmental ALLERGIES History of smoking Obesity with a BMI of 36.6 Osteoarthritis Hypertension Plan: The patient was seen and evaluated Chest x-ray, labs and medications reviewed Continue bronchodilators, steroids Empiric antibiotics Check a procalcitonin Continue gentle hydration CT scan of the chest once renal function improved Titrate the FiO2 as tolerated We will continue to follow and make further recommendations based on her clinical status I have personally seen and examined the patient, performed the documentation and the assessment and plan as written. Number of minutes spent on the visit: 20.
--- NOTE | 2023-10-10 17:55 | CT ---
EXAMINATION TYPE: CT chest wo con CT DLP: 408.9 mGycm, Automated exposure control for dose reduction was used. DATE OF EXAM: 10/10/2023 5:43 PM COMPARISON: 05/25/2023, 02/21/2023 CLINICAL INDICATION:Female, 83 years old with history of copd, TECHNIQUE: Multiple axial images were obtained through the chest. Sagittal and coronal reformats were created for review. Contrast used: mL of (None if empty) Oral contrast used: (None if empty) FINDINGS: LUNGS/ PLEURA: Scattered streaky interstitial changes with mild to moderate centrilobular and parasep stacie emphysema. Calcifications are seen along the on the left lung on the diaphragm. Right upper lobe 2 mm pulmonary nodule, previously 8 mm and 05/25/2023 AIRWAY: Patent and unremarkable. HEART: No heart is mildly enlarged for size. There is moderate to severe coronary artery calcificatio ns. MEDIASTINUM: No gross evidence of adenopathy. VASCULATURE: No aortic aneurysm. MUSCULOSKELETAL: No acute osseous abnormalities SOFT TISSUES/LYMPH NODES: Unremarkable. LOWER NECK: No significant findings. UPPER ABDOMEN: No significant findings. IMPRESSION: 1. Right upper lung spiculated nodule measuring 10 x 9 mm which is increase in size from 05/25/2023 w here it measured up to 8 mm. Further evaluation with PET/CT is recommended. 2. Pleural calcifications correlate with history of asbestos exposure. 3. Moderate emphysema changes. 4. Cardiomegaly. 5. Moderate severe coronary atherosclerosis.
[2023-10-10] MEDS: PANTOPRAZOLE 40 MG TABLET PO SCH (17:57)
[2023-10-10] MEDS: SYMBICORT 160-4.5 MCG INHALER INHALATION SCH (19:44)
[2023-10-10] MEDS: LACTULOSE 20 GM/30 ML CUP PO SCH (21:43)
--- NOTE | 2023-10-11 03:21 | HP ---
HISTORY AND PHYSICAL HISTORY OF PRESENT ILLNESS: White female came in for [id number] respiratory failure secondary to COPD exacerbation. 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 She had no evidence of recurrence on May 2023 CAT scan and she has adenocarcinoma of the right lung also with previous right upper lobe resection. She had recurrent right- sided pleural effusions back then with multiple thoracentesis. Negative cytology. She is admitted with shortness of breath and wheezing. REVIEW OF SYSTEMS: 14-point review of systems, PND, orthopnea, weight gain. She wears O2 at home. Diastolic heart failure. She has anxiety. HOME MEDICINES: 1. [place] 10/325 t.i.d. for degenerative disk disease. 2. Lasix 40 mg daily. 3. Pepcid 40 b.i.d. 4. Plavix 75 daily. 5. Singulair 10 mg daily. 6. Xanax 0.5 b.i.d. 7. Claritin 10 mg daily. 8. Potassium chloride 20 mEq daily. 9. Coreg 12.5 b.i.d. 10.Prilosec 40 daily. PHYSICAL EXAMINATION: VITAL SIGNS: Blood pressure is 110 to 130s over 60s to 80s; O2 96-100; pulse has been in the 120s to 130s on admission, currently down to 70s; respiratory rate 18-24. LUNGS: Scattered rhonchi, wheeze, O2 dependent. HEART: S1, S2. Tachycardic. ABDOMEN: Soft, nontender. SPINE: No scoliosis. SKIN: No rashes. ENDOCRINE: BMI is over 40. HEMATOLOGY: Generalized edema. LABORATORY DATA: BUN 29, creatinine 1.22, hemoglobin is 9.8, white count 7.5. Sodium 136, potassium 4.3. ASSESSMENT: Acute on chronic hypoxemic respiratory failure. PLAN: We will do CAT scan of the lungs to see where the patient as. Continue with steroids, empiric antibiotics, possible Lasix. Prognosis guarded. MMODL / IJN: [id number] /
[2023-10-11 05:50] LABS: Glucose,Whole Blood 189 mg/dL (70-110)
[2023-10-11 08:21] LABS: Basophils # (A) 0.01 X 10*3/uL (0.00-0.10); Basophils % (A) 0.1 %; Eosinophils # (A) 0 X 10*3/uL (0.04-0.35); Eosinophils % (A) 0 %; HCT 28.5 % (37.2-46.3); Lymphocytes # (A) 0.88 X 10*3/uL (0.90-5.00); Lymphocytes % (A) 9.5 %; MCH 27.5 pg (27.0-32.0); MCHC 31.6 g/dL (32.0-37.0); MCV 87.2 FL (80.0-97.0); Mean Platelet Volume 10.8 FL (9.5-12.2); Monocytes # (A) 0.26 X 10*3/uL (0.20-1.00); Monocytes % (A) 2.8 %; NRBC Per 100 WBC 0 X 10*3/uL (0.00-0.01); Neutrophils % (A) 87.4 %; Platelet Count 187 X 10*3/uL (140-440); RBC 3.27 X 10*6/uL (4.10-5.20); RDW 14.1 % (11.5-14.5); WBC 9.27 X 10*3/uL (4.50-10.00)
[2023-10-11 08:48] LABS: BUN/Creat Ratio 23.67 Ratio (12.00-20.00); Blood Urea Nitrogen 28.4 mg/dL (9.0-27.0); Carbon Dioxide 25.8 mmol/L (21.6-31.8); Chloride 106 mmol/L (96-109); Glucose 197 mg/dL (70-110); Magnesium 2.4 mg/dL (1.5-2.4); Potassium 4.4 mmol/L (3.5-5.5); Sodium 142 mmol/L (135-145)
[2023-10-11 08:49] LABS: ALT 13 U/L (8-44); AST 16 U/L (13-35); Albumin 3.5 g/dL (3.8-4.9); Alkaline Phosphatase 74 U/L (41-126); Calcium 9.3 mg/dL (8.7-10.3); Globulin 2.7 g/dL (1.6-3.3); Total Bilirubin 0.4 mg/dL (0.3-1.2); Total Protein 6.2 g/dL (6.2-8.2)
[2023-10-11] MEDS ORDERED: ACETAMINOPHEN TAB 325 MG TAB PO PRN (11:31)
[2023-10-11 11:41] LABS: Glucose,Whole Blood 211 mg/dL (70-110)
--- NOTE | 2023-10-11 14:15 | P.PN ---
Subjective Progress Note Date: 10/11/23 This is a 83-year-old female patient with a known history of squamous cell carcinoma of the left lower lobe status post wedge resection in February 2022. She also has a history of previous right upper lobe resection for adenocarcinoma. She had had recurrent pleural effusions requiring thoracentesis in the past. She does have chronic hypoxic respiratory failure and usually maintained on oxygen at 2 L/min per nasal cannula. She has chronic obstructive pulmonary disease, coronary disease, hyperlipidemia, chronic tobacco dependence, obesity, osteoarthritis, hypertension. Her last CT scan of the chest was May 2023 that showed no suspicious lung nodules. No enlarged mediastinal or hilar adenopathy. No acute pulmonary process at that time. Chronic For somatic changes. She presented here to the emergency room early this morning with increasing shortness of breath cough and congestion. Poor oral intake. Chest x-ray reveals cardiomegaly and chronic and for somatic changes without any new acute pulmonary process. White count 7.5. Hemoglobin 9.8. Platelets 100,000. Sodium 136. Potassium 4.3. Bicarb 24. BUN 29. Creatinine 1.22. Glucose 144. proBNP 9820. Troponin negative x 1. She is seen today in consultation in the emergency department. She is currently sitting up on a stre tcher. Awake and alert in no acute distress. Somewhat of a poor historian. She is currently maintaining O2 saturations in the 90s on 2 L/min per nasal cannula. She is afebrile. Hemodynamically stable. The patient is seen today October 11, 2023 in follow-up on the regular medical floor. She is more awake and alert today. Denies any worsening shortness of breath, cough or congestion. She is maintaining O2 saturations in the 90s on 2 L/min per nasal cannula. Glucose 211. Count 9.2. Hemoglobin 9.0. Platelets 187. Sodium 142. Potassium 4.4. Bicarb 26. BUN 28. Creatinine 1.2. She paloma ins on DuoNeb inhalations, Symbicort, Solu-Medrol. Empiric antibiotics in the form of doxycycline. Procalcitonin was 0.11. Objective - Vital Signs Vital signs: Vital Signs Temp 97.4 F L 10/11/23 14:00 Pulse 151 H 10/11/23 14:00 Resp 26 H 10/11/23 14:00 BP 155/92 10/11/23 14:00 Pulse Ox 98 10/11/23 14:00 FiO2 Intake & Output 10/10/23 10/11/23 10/11/23 18:59 06:59 18:59 Intake Total 100 Output Total 300 Balance -300 100 Weight 90.718 kg Intake: Oral 100 Output: Urine 300 Other: Voiding Method External Catheter External Catheter # Voids 1 1 # Bowel Movements 1 1 - Exam GENERAL EXAM: Alert, pleasant 83-year-old female, on 2 L nasal cannula, in no apparent distress. HEAD: Normocephalic. EYES: Normal reaction of pupils, equal size. NOSE: Clear with pink turbinates. THROAT: No erythema or exudates. NECK: No masses, no JVD. CHEST: No chest wall deformity. LUNGS: Equal air entry with no crackles, wheeze, rhonchi or dullness. CVS: S1 and S2 normal with no audible murmur, regular rhythm. ABDOMEN: No hepatosplenomegaly, normal bowel sounds, no guarding or rigidity. SPINE: No scoliosis or deformity SKIN: No rashes CENTRAL NERVOUS SYSTEM: No focal deficits, tone is normal in all 4 extremities. EXTREMITIES: There is no peripheral edema. No clubbing, no cyanosis. Peripheral pulses are intact. - Labs CBC & Chem 7: 10/11/23 05:02 10/11/23 05:02 Labs: Abnormal Lab Results - Last 24 Hours (Table) 10/10/23 10/11/23 10/11/23 Range/Units 01:49 05:02 05:02 RBC 3.27 L (4.10-5.20) X 10*6/uL Hgb 9.0 L (12.0-15.0) g/dL Hct 28.5 L (37.2-46.3) % MCHC 31.6 L (32.0-37.0) g/dL Neutrophils # 8.10 H (1.80-7.70) X 10*3/uL Lymphocytes # 0.88 L (0.90-5.00) X 10*3/uL Eosinophils # 0 L (0.04-0.35) X 10*3/uL BUN 28.4 H (9.0-27.0) mg/dL Est GFR (CKD-EPI) 45 L (>=60) BUN/Creatinine Ratio 23.67 H (12.00-20.00) Ratio Glucose 197 H (70-110) mg/dL POC Glucose (mg/dL) (70-110) mg/dL Albumin 3.5 L (3.8-4.9) g/dL Albumin/Globulin Ratio 1.30 L (1.60-3.17) Ratio Procalcitonin 0.11 H (0.02-0.09) ng/mL 10/11/23 10/11/23 Range/Units 05:49 11:40 RBC (4.10-5.20) X 10*6/uL Hgb (12.0-15.0) g/dL Hct (37.2-46.3) % MCHC (32.0-37.0) g/dL Neutrophils # (1.80-7.70) X 10*3/uL Lymphocytes # (0.90-5.00) X 10*3/uL Eosinophils # (0.04-0.35) X 10*3/uL BUN (9.0-27.0) mg/dL Est GFR (CKD-EPI) (>=60) BUN/Creatinine Ratio (12.00-20.00) Ratio Glucose (70-110) mg/dL POC Glucose (mg/dL) 189 H 211 H (70-110) mg/dL Albumin (3.8-4.9) g/dL Albumin/Globulin Ratio (1.60-3.17) Ratio Procalcitonin (0.02-0.09) ng/mL Assessment and Plan Assessment: Acute on chronic hypoxemic respiratory failure secondary to an acute exacerbation of chronic obstructive pulmonary disease. Chest x-ray reveals no acute pulmonary process. Procalcitonin 0.11 Chronic hypoxic respiratory failure currently on oxygen 2 L minute nasal cannula COPD, severe, currently inactive and stable with chronic exertional dyspnea Squamous cell carcinoma of the left lower lobe. The patient had a 1.2 cm mass in left lower lobe underwent wedge resection back in February 2022. Subsequent CAT scan of the chest from May 2023 showed no evidence of any tumor recurrence Early stage adenocarcinoma of the lung. The patient had a previous right upper lobe resection for adenocarcinoma History of recurrent right-sided pleural effusion requiring multiple thoracentesis, negative cytology, fluids recovered Coronary artery disease Hyperlipidemia Environmental ALLERGIES History of smoking Obesity with a BMI of 36.6 Osteoarthritis Hypertension Plan: The patient was seen and evaluated Labs and medications reviewed Continue the current treatment plan Titrate the FiO2 as tolerated We will continue to follow I have personally seen and examined the patient, performed the documentation and the assessment and plan as written. Number of minutes spent on the visit: 10.
[2023-10-11] MEDS: METOPROLOL TARTRATE 25 MG TAB PO STA (14:59)
--- NOTE | 2023-10-11 15:01 | P.PN ---
Progress Note - Text Progress Note Date: 10/11/23 Received call from patient's nurse regarding a new consult for sinus tachycardia. Heart rate was in the 140s. Initially, Dr. Saul ordered Cardizem drip for the patient. Then consult was called to Dr. Durant with recommendations to transfer patient to the cardiac stepdown unit. Consult was then called to Dr. Marshall by myself. Patient will be started on Cardizem bolus followed by a drip and agree with transfer to 3 S. We will plan to evaluate the patient tomorrow morning for full evaluation. If any new concerns should develop, please contact cardiology.
[2023-10-11] MEDS: FUROSEMIDE 10 MG/ML 2 ML VIAL IV SCH (15:31)
[2023-10-11] MEDS: DILTIAZEM DRIP BOLUS FROM BAG 1 MG SOLN IV ONE (15:37)
[2023-10-11] MEDS: DILTIAZEM 125 MG in SODIUM CHLORIDE 0.9% 100 ML IV SCH (15:47)
[2023-10-11 17:03] LABS: Glucose,Whole Blood 206 mg/dL (70-110)
--- NOTE | 2023-10-11 17:57 | CA ---
Transthoracic Echo Report Name: Jana Arellano Age: 83 Gender: F : 1940 Exam Date: 10/11/2023 16:01 Exam Location: [place] Echo Ht (in): 62 Wt (lb): 200 Ordering Physician: Billy Saul MD Attending/Referring Phys: [employer] Front Desk Agent Abbie Fernando RDCS Procedure CPT: Indications: chf Cardiac Hx: Technical Quality: Very technically difficult study Contrast 1: Definity Total Dose (mL): 3 Contrast 2: Total Dose (mL): MEASUREMENTS (Male / Female) Normal Values 2D ECHO LV Diastolic Diameter PLAX 5.0 cm 4.2 - 5.9 / 3.9 - 5.3 cm LV Systolic Diameter PLAX 3.2 cm IVS Diastolic Thickness 0.9 cm 0.6 - 1.0 / 0.6 - 0.9 cm LVPW Diastolic Thickness 1.1 cm 0.6 - 1.0 / 0.6 - 0.9 cm LV Relative Wall Thickness 0.4 LVOT Diameter 2.2 cm Aortic Root Diameter 2.9 cm LA Systolic Diameter LX 4.4 cm 3.0 - 4.0 / 2.7 - 3.8 cm DOPPLER AV Peak Velocity 134.4 cm/s AV Peak Gradient 7.2 mmHg AV Mean Velocity 97.5 cm/s AV Mean Gradient 4.3 mmHg AV Velocity Time Integral 29.2 cm LVOT Peak Velocity 92.2 cm/s LVOT Peak Gradient 3.4 mmHg LVOT Velocity Time Integral 19.6 cm LVOT Stroke Volume 72.1 cm??? LVOT Stroke Volume Index 37.7 ml/m??? LVOT Cardiac Index 2937.2 cm???/min???m??? AV Area Cont Eq vti 2.5 cm??? AV Area Cont Eq pk 2.5 cm??? Mitral E Point Velocity 97.4 cm/s Mitral A Point Velocity 100.7 cm/s Mitral E to A Ratio 1.0 MV Deceleration Time 176.2 ms MV E' Velocity 9.4 cm/s Mitral E to MV E' Ratio 10.3 PV Peak Velocity 75.9 cm/s PV Peak Gradient 2.3 mmHg FINDINGS Left Ventricle Left ventricular ejection fraction is estimated at 55-60 %. No obvious regional wall motion abnormalities. Borderline left ventricular hypertrophy.left ventricular cavity size normal. Right Ventricle Right ventricle not well visualized. Right Atrium Normal right atrial size. Left Atrium Moderately increased left atrial diameter. Mitral Valve Trace mitral regurgitation.mitral annular calcification. Aortic Valve No aortic regurgitation.aortic valve sclerosis. Tricuspid Valve Trace tricuspid regurgitation.structurally normal tricuspid valve. Pulmonic Valve Pulmonic valve not well visualized. Pericardium Prominent epicardial fat. Aorta Normal size aortic root. CONCLUSIONS Technically difficult study. Definity ECHO contrast used for improved visualization of the endocardial borders (inadequate visualization of two or more contiguous segments). Normal left ventricle size and systolic function Very limited Doppler study with trace mitral and tricuspid regurgitation Previewed by: Dr. Alexsander Durant MD (Electronically Signed) Final Date: 11 October 2023 17:57
[2023-10-11] MEDS ORDERED: DEXTROSE 50% SYRINGE 50 ML IVP PRN ×2 (18:14)
[2023-10-11 19:53] LABS: Glucose,Whole Blood 205 mg/dL (70-110)
[2023-10-11] MEDS: INSULIN ASPART (NovoLOG) 100 UNIT/ML VIAL SQ SCH (20:50)
[2023-10-11] MEDS: CIPROFLOXACIN-DEXAMETH 0.3-0.1% DROPS 7.5 ML BTL BOTH EARS SCH (20:50)
[2023-10-11] MEDS: BUDESONIDE 1 MG/2 ML NEBU INHALATION SCH (22:30)
--- NOTE | 2023-10-11 22:41 | P.CONS ---
History of Present Illness - Reason for Consult Consult date: 10/11/23 Infection Requesting physician: Billy Saul - Chief Complaint Increasing shortness of breath and cough x few days - History of Present Illness Patient is a 83-year-old female with a past medical history significant for hypertension hyperlipidemia COPD coronary artery disease and a previous history of right upper lobe resection for adenocarcinoma, presenting to the hospital for evaluation of increasing shortness of breath symptom has been going on for a day or 2 before presentation to the hospital also associated with congested cough however not bringing up significant mount of sputum patient denies having any URI symptoms no nausea no vomiting no abdominal pain and no diarrhea on presentation to the hospital the patient was afebrile and no fever have recorded subsequently patient was not tachycardic hypotensive, patient was mildly hypoxic currently on 2 L nasal cannula oxygen patient has a white count of 7.5 creatinine is 1.22 subsequently normalized procalcitonin 0.11 liver enzymes are normal patient did have a chest x-ray cardiomegaly chronic emphysematous changes without new acute pulmonary process patient did have a CT of the chest right upper lobe spiculated nodule moderate emphysematous changes did not mention any consolidation patient is currently on oral doxycycline infectious he was consulted for possible infection Review of Systems Positive point and negatives has been mentioned in the HPI, complete review of systems was performed and all other systems are negative Past Medical History Past Medical History: Asthma, Coronary Artery Disease (CAD), Cancer, COPD, Hyperlipidemia, Hypertension, Osteoarthritis (OA), Pneumonia, Respiratory Disorder Additional Past Medical History / Comment(s): Adenocarcinoma of the right upper lobe, history of recurrent right-sided pleural effusion requiring multiple thoracentesis, coronary artery disease, chronic hypoxic respiratory failure maintained on O2, 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 History of Any Multi-Drug Resistant Organisms: None Reported Past Surgical History: Appendectomy, Bowel Resection, Ear Surgery, Heart Catheterization With Stent, Hernia Repair, Hysterectomy, Tonsillectomy Additional Past Surgical History / Comment(s): Colon/bowel surgery done in her 30's-21 inches removed, bilateral cataracts removed, bilateral laser eye surgery, hemorroidectomy, hiatal hernia, robotic rt upper lobectomy w/mediastinal lymph node dissection, 1 cardiac stent Past Anesthesia/Blood Transfusion Reactions: No Reported Reaction Additional Past Anesthesia/Blood Transfusion Reaction / Comm: no hx blood transfusion Date of Last Stent Placement:: 01/01/18 Past Psychological History: No Psychological Hx Reported Additional Psychological History / Comment(s): . Smoking Status: Former smoker Past Alcohol Use History: None Reported Additional Past Alcohol Use History / Comment(s): quit smoking 07/18/17 smoked s juan ramon age 20 1 1/2ppd Past Drug Use History: None Reported - Past Family History Father Family Medical History: CVA/TIA, Myocardial Infarction (HI) Mother Family Medical History: Cancer Additional Family Medical History / Comment(s): bowel cancer Medications and Allergies Home Medications Medication Instructions Recorded Confirmed Type ALPRAZolam [Xanax] 0.5 mg PO TID 03/19/14 10/10/23 History Montelukast [Singulair] 10 mg PO DAILY 09/15/17 10/10/23 History Famotidine [Pepcid] 40 mg PO BID 04/27/21 10/10/23 History Furosemide [Lasix] 40 mg PO DAILY 04/27/21 10/10/23 History Budesonide [Pulmicort] 0.5 mg INHALATION RT-BID 05/24/23 10/10/23 History Ipratropium-Albuterol Nebulize 3 ml INHALATION RT-QID 05/24/23 10/10/23 History [Duoneb 0.5 mg-3 mg/3 ml Soln] Loratadine [Claritin] 10 mg PO DAILY 05/24/23 10/10/23 History Potassium Chloride ER [K-Dur 20] 20 meq PO DAILY 05/24/23 10/10/23 History Aspirin 81 mg PO DAILY 90 Days #90 tab 10/13/23 Rx Atorvastatin [Lipitor] 40 mg PO DAILY 90 Days #90 tab 10/13/23 Rx Ciprofloxacin-Dexameth [Ciprodex 4 drops BOTH EARS BID 10 Days #5 ml 10/13/23 Rx Otic Susp] Doxycycline [Vibramycin] 100 mg PO BID 7 Days #14 cap 10/13/23 Rx Metoprolol Succinate (ER) [Toprol 25 mg PO DAILY 90 Days #90 tab 10/13/23 Rx XL] Verapamil [Isoptin] 40 mg PO BID 90 Days #180 tab 10/13/23 Rx Allergies Allergy/AdvReac Type Severity Reaction Status Date / Time Penicillins Allergy Rash/Hives Verified 10/10/23 09:12 Physical Exam Vitals: Vital Signs Temp Pulse Pulse Resp BP BP BP 10/11/23 16:07 160/84 10/11/23 15:51 160/84 10/11/23 15:30 97.7 F 150 H 21 157/88 10/11/23 14:00 97.4 F L 151 H 26 H 155/92 10/11/23 12:32 84 10/11/23 12:23 80 10/11/23 09:23 80 10/11/23 09:13 10/11/23 09:11 84 10/11/23 08:00 17 10/11/23 06:45 97.6 F 79 17 149/55 10/11/23 01:22 98.1 F 88 16 159/74 10/10/23 21:17 98.1 F 73 16 136/79 10/10/23 20:55 71 20 147/75 10/10/23 19:57 65 10/10/23 19:46 65 10/10/23 19:31 69 19 109/81 10/10/23 18:08 98.2 F 73 18 138/79 10/10/23 16:39 74 10/10/23 16:28 70 Pulse Ox 10/11/23 16:07 10/11/23 15:51 10/11/23 15:30 99 10/11/23 14:00 98 10/11/23 12:32 10/11/23 12:23 10/11/23 09:23 10/11/23 09:13 94 L 10/11/23 09:11 10/11/23 08:00 10/11/23 06:45 95 10/11/23 01:22 94 L 10/10/23 21:17 97 10/10/23 20:55 96 10/10/23 19:57 10/10/23 19:46 10/10/23 19:31 95 10/10/23 18:08 100 10/10/23 16:39 10/10/23 16:28 Intake and Output 10/11/23 10/11/23 10/11/23 06:59 14:59 22:59 Intake Total 100 Output Total 300 Balance -300 100 Intake: Oral 100 Output: Urine 300 Other: Voiding Method External Catheter # Voids 1 1 # Bowel Movements 1 1 GENERAL DESCRIPTION: Elderly female lying in bed, no distress. No tachypnea or accessory muscle of respiration use. HEENT: Shows Pallor , no scleral icterus. Oral mucous membrane is dry. NECK: Trachea central, no thyromegaly. LUNGS: Unlabored breathing. Coarse breath sounds bilaterally. HEART: S1, S2, regular rate and rhythm. No loud murmur ABDOMEN: Soft, no tenderness , guarding or rigidity, no organomegaly EXTREMITIES: No edema of feet. SKIN: No rash, no masses palpable. NEUROLOGICAL: The patient is awake, alert, mood and affect normal. Results CBC & Chem 7: 10/11/23 05:02 10/11/23 05:02 Labs: Abnormal Lab Results - Last 24 Hours (Table) 10/11/23 10/11/23 10/11/23 Range/Units 05:02 05:02 05:49 RBC 3.27 L (4.10-5.20) X 10*6/uL Hgb 9.0 L (12.0-15.0) g/dL Hct 28.5 L (37.2-46.3) % MCHC 31.6 L (32.0-37.0) g/dL Neutrophils # 8.10 H (1.80-7.70) X 10*3/uL Lymphocytes # 0.88 L (0.90-5.00) X 10*3/uL Eosinophils # 0 L (0.04-0.35) X 10*3/uL BUN 28.4 H (9.0-27.0) mg/dL Est GFR (CKD-EPI) 45 L (>=60) BUN/Creatinine Ratio 23.67 H (12.00-20.00) Ratio Glucose 197 H (70-110) mg/dL POC Glucose (mg/dL) 189 H (70-110) mg/dL Albumin 3.5 L (3.8-4.9) g/dL Albumin/Globulin Ratio 1.30 L (1.60-3.17) Ratio 10/11/23 Range/Units 11:40 RBC (4.10-5.20) X 10*6/uL Hgb (12.0-15.0) g/dL Hct (37.2-46.3) % MCHC (32.0-37.0) g/dL Neutrophils # (1.80-7.70) X 10*3/uL Lymphocytes # (0.90-5.00) X 10*3/uL Eosinophils # (0.04-0.35) X 10*3/uL BUN (9.0-27.0) mg/dL Est GFR (CKD-EPI) (>=60) BUN/Creatinine Ratio (12.00-20.00) Ratio Glucose (70-110) mg/dL POC Glucose (mg/dL) 211 H (70-110) mg/dL Albumin (3.8-4.9) g/dL Albumin/Globulin Ratio (1.60-3.17) Ratio Assessment and Plan (1) Infection Status: Acute Code(s): B99.9 - UNSPECIFIED INFECTIOUS DISEASE SNOMED Code(s): 35950445 (2) Elevated procalcitonin Status: Acute Code(s): R79.89 - OTHER SPECIFIED ABNORMAL FINDINGS OF BLOOD CHEMISTRY SNOMED Code(s): 788893364 (3) Tracheobronchitis Status: Acute Code(s): J40 - BRONCHITIS, NOT SPECIFIED ACUTE OR CHRONIC SNOMED Code(s): 04134309 Plan: 1patient presented to hospital with a increasing shortness of breath and cough more likely related to COPD exacerbation with tracheobronchitis clinically not behaving as pneumonia patient with no fever or elevated white count both the CT chest and chest x-ray not show any acute infiltrates 2-mild elevated procalcitonin 3-May continue doxycycline along with the steroids and bronchodilator We will follow on clinical condition and cultures to further adjust medication if needed Thank you for this consultation we will follow the patient along with you Dictation was produced using [employer] dictation software. please excuse any grammatical, word or spelling errors. Time with Patient: Greater than 30
--- NOTE | 2023-10-12 02:38 | PN ---
PROGRESS NOTE SUBJECTIVE: Jana Arellano back into wide-complex tachycardia, atrial fibrillation, RVR on EKG, ordered low-dose metoprolol. Cardiology is going to start her back on Cardizem drip, send her back to the 3rd floor. OBJECTIVE: VITAL SIGNS: Temp 97.4, pulse is 150s, we just added extra dose of metoprolol, respiratory rate 20 to 26, saturating 98% and 96% on 4 and 2 L. Blood pressure is 155/92. CARDIOVASCULAR: Irregularly irregular rhythm. LUNGS: Rales at the bases. PSYCH: Appropriate mood and affect. NEUROLOGIC: Alert and oriented x3. ASSESSMENT: Atrial fibrillation, rapid ventricular response, chronic obstructive pulmonary disease, history of lung cancer, pulmonary hypertension. Prognosis guarded, O2 dependent chronic obstructive pulmonary disease. Possibly get her consult with Dr. Jose for possible infection. Cardiology to have to recheck her out for wide-complex tachycardia. Please see further orders. I ordered an echo. Echo is pending. MMODL / IJN: [id number] /
[2023-10-12 06:01] LABS: Glucose,Whole Blood 172 mg/dL (70-110)
[2023-10-12] MEDS: METOPROLOL SUCCINATE (ER) 25 MG TAB.ER.24H PO SCH (08:49)
[2023-10-12] MEDS: ASPIRIN 81 MG PO SCH (08:49)
[2023-10-12] MEDS: VERAPAMIL 40 MG TAB PO SCH (08:50)
[2023-10-12] MEDS: ATORVASTATIN 40 MG TAB PO SCH (08:50)
[2023-10-12 11:22] LABS: Glucose,Whole Blood 167 mg/dL (70-110)
--- NOTE | 2023-10-12 11:50 | P.CRDCN ---
History of Present Illness Consult date: 10/12/23 Reason for Consult (text): Sinus tachycardia History of present illness: History of present illness: This is an 83-year-old female patient with past medical history of COPD, adenocarcinoma of the right lung with previous right upper lobe resection, recurrent right-sided pleural effusion with multiple thoracentesis and negative cytology, chronic hypoxic respiratory failure on home O2. Patient was admitted to the hospital on 10/09 for COPD exacerbation. We have been asked to evaluate the patient for sinus tachycardia. Patient was previously seen by cardiology in October 2022 during a hospitalization for AV leonora reentrant tachycardia and beta- omar was started. Patient has not followed up in the office. Patient denies having any symptoms at the time of evaluation, she is somewhat confused this morning. She denies having any chest pain. She is tachypneic but denies shortness of breath. No palpitations no lightheadedness or dizziness. EKG sinus tachycardia, telemetry reviewed, patient is currently in sinus rhythm Chest x-ray: Cardiomegaly and chronic emphysematous changes without new acute pulmonary process. CT of the chest: Right upper lobe spiculated nodule measuring 10 x 9 mm with increase in size from 05/25/2023. Pleural calcifications. Moderate emphysematous changes. Cardiomegaly. Moderate severe coronary atherosclerosis. Echocardiogram performed 10/11/2023 reveals EF 55 to 60%, technically difficult study. Trace mitral and tricuspid regurgitation. WBC 9.2, hemoglobin 9, platelet count 187. Electrolytes are normal. BUN 28 creatinine 1.2. INR 1. Blood sugar 197. Calcium 9.3, phosphorus 3.0, magnesium 2.4. Liver function test are normal. Troponin negative x 1. proBNP 9820. Procalcitonin 0.11. Home cardiac medications: Coreg 12.5 mg twice daily, Plavix 75 mg daily, Lasix 40 mg daily, potassium chloride 20 mEQ daily. Cardiac catheterization history: 01/01/2018 patient underwent cardiac catheter ization with Dr. Booker which revealed calcified right and left coronary system. Critical disease involving the distal right coronary artery with intermediate disease involving the mid right coronary artery. Mild disease involving the left main, left circumflex and left anterior descending artery as well. Patient underwent successful stenting of the distal right coronary artery with NIVIA. Review Of Systems: At the time of my exam: CONSTITUTIONAL: Denies fever or chills. HEENT: Denies blurred vision, vision changes, or eye pain. Denies hemoptysis CARDIOVASCULAR: Denies chest pain. Denies orthopnea. Denies PND. Denies palpitations RESPIRATORY: Denies shortness of breath. GASTROINTESTINAL: Denies abdominal pain. Denies nausea or vomiting. HEMATOLOGIC: Denies bleeding disorders. GENITOURINARY: Denies any blood in urine. SKIN: Denies pruitis. Denies rash. Physical examination: Gen: This is a 83-year-old female, sitting on the edge of bed. VS: reviewed, Blood pressure 155/85, heart rate 70, pulse ox 97% on 2 L. HEENT: Head is atraumatic, normocephalic. Pupils equal, round. Sclerae is anicteric. NECK: Supple. No JVD. LUNGS: Bilateral air entry. No intercostal retractions, tachypneic. HEART: Regular rate and rhythm. No murmur. ABDOMEN: Soft No tenderness. EXTREMITIES: No pedal edema. No calf tenderness. NEUROLOGICAL: Patient is awake, alert. Assessment: PSVT History of lung cancer Coronary artery disease with previous PCI Hypertension COPD Chronic hypoxic respiratory failure on home O2 Plan: Continue patient's home cardiac medications Discontinue Cardizem drip and start patient on verapamil 40 mg twice daily, Toprol XL 25 mg daily Start patient on aspirin 81 mg daily and atorvastatin 40 mg daily Further recommendations to follow based upon clinical course Thank you kindly for this consultation. Nurse practitioner note has been reviewed, I agree with documented findings and plan of care. Patient was seen and examined. 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 History of Any Multi-Drug Resistant Organisms: None Reported Past Surgical History: Appendectomy, Bowel Resection, Ear Surgery, Heart Catheterization With Stent, Hernia Repair, Hysterectomy, Tonsillectomy Additional Past Surgical History / Comment(s): Colon/bowel surgery done in her 30's-21 inches removed, bilateral cataracts removed, bilateral laser eye surgery, hemorroidectomy, hiatal hernia, robotic rt upper lobectomy w/mediastinal lymph node dissection, 1 cardiac stent Past Anesthesia/Blood Transfusion Reactions: No Reported Reaction Additional Past Anesthesia/Blood Transfusion Reaction / Comment(s): no hx blood transfusion Date of Last Stent Placement:: 01/01/18 Past Psychological History: No Psychological Hx Reported Additional Psychological History / Comment(s): . Smoking Status: Former smoker Past Alcohol Use History: None Reported Additional Past Alcohol Use History / Comment(s): quit smoking 07/18/17 smoked since age 20 1 1/2ppd Past Drug Use History: None Reported - Past Family History Father Family Medical History: CVA/TIA, Myocardial Infarction (ME) Mother Family Medical History: Cancer Additional Family Medical History / Comment(s): bowel cancer Medications and Allergies Home Medications Medication Instructions Recorded Confirmed Type ALPRAZolam [Xanax] 0.5 mg PO TID 03/19/14 10/10/23 History Montelukast [Singulair] 10 mg PO DAILY 09/15/17 10/10/23 History Clopidogrel [Plavix] 75 mg PO DAILY #90 tab 01/01/18 10/10/23 Rx Famotidine [Pepcid] 40 mg PO BID 04/27/21 10/10/23 History Furosemide [Lasix] 40 mg PO DAILY 04/27/21 10/10/23 History HYDROcodone/APAP 10-325MG [[place] 1 tab PO TID 10/15/22 10/10/23 History 10-325] Budesonide [Pulmicort] 0.5 mg INHALATION RT-BID 05/24/23 10/10/23 History Ipratropium-Albuterol Nebulize 3 ml INHALATION RT-QID 05/24/23 10/10/23 History [Duoneb 0.5 mg-3 mg/3 ml Soln] Loratadine [Claritin] 10 mg PO DAILY 05/24/23 10/10/23 History Potassium Chloride ER [K-Dur 20] 20 meq PO DAILY 05/24/23 10/10/23 History carvediloL [Coreg] 12.5 mg PO BID 05/24/23 10/10/23 History Omeprazole [PriLOSEC] 40 mg PO HS 10/10/23 10/10/23 History Allergies Allergy/AdvReac Type Severity Reaction Status Date / Time Penicillins Allergy Rash/Hives Verified 10/10/23 09:12 Physical Exam Vitals: Vital Signs Temp Pulse Pulse Resp BP BP Pulse Ox 10/12/23 04:00 98.1 F 86 19 164/91 94 L 10/11/23 23:39 98.1 F 138 H 19 113/74 94 L 10/11/23 23:01 76 10/11/23 22:49 74 10/11/23 20:00 98.5 F 74 19 138/68 97 10/11/23 16:54 83 10/11/23 16:44 82 10/11/23 16:07 160/84 10/11/23 15:51 160/84 10/11/23 15:30 97.7 F 150 H 21 157/88 99 10/11/23 14:00 97.4 F L 151 H 26 H 155/92 98 10/11/23 12:32 84 10/11/23 12:23 80 10/11/23 09:23 80 10/11/23 09:13 94 L 10/11/23 09:11 84 10/11/23 08:00 17 Intake and Output 10/11/23 10/12/23 10/12/23 22:59 06:59 14:59 Intake Total 540 Output Total 650 400 Balance -110 -400 Intake: Oral 540 Output: Urine 650 400 Other: Voiding Method Bedside Commode Bedside Commode # Voids 1 1 # Bowel Movements 1 Weight 92.7 kg Results 10/11/23 05:02 10/11/23 05:02 Cardiac Enzymes 10/11/23 Range/Units 05:02 AST 16 (13-35) U/L CBC 10/11/23 Range/Units 05:02 WBC 9.27 (4.50-10.00) X 10*3/uL RBC 3.27 L (4.10-5.20) X 10*6/uL Hgb 9.0 L (12.0-15.0) g/dL Hct 28.5 L (37.2-46.3) % Plt Count 187 (140-440) X 10*3/uL Comprehensive Metabolic Panel 10/11/23 Range/Units 05:02 Sodium 142 (135-145) mmol/L Potassium 4.4 (3.5-5.5) mmol/L Chloride 106 (96-109) mmol/L Carbon Dioxide 25.8 (21.6-31.8) mmol/L BUN 28.4 H (9.0-27.0) mg/dL Creatinine 1.2 (0.6-1.5) mg/dL Glucose 197 H (70-110) mg/dL Calcium 9.3 (8.7-10.3) mg/dL AST 16 (13-35) U/L ALT 13 (8-44) U/L Alkaline Phosphatase 74 (41-126) U/L Total Protein 6.2 (6.2-8.2) g/dL Albumin 3.5 L (3.8-4.9) g/dL Current Medications Generic Name Dose Route Start Last Admin Trade Name Freq PRN Reason Stop Dose Admin Acetaminophen 650 mg 10/11/23 11:31 Acetaminophen Tab 325 Mg Tab PO Q6HR PRN Fever and/ or Pain Albuterol Sulfate 2.5 mg 10/10/23 04:25 10/10/23 07:48 Albuterol Nebulized 2.5 Mg/3 Ml INHALATION 2.5 mg RT-QID PRN Administration Shortness Of Breath Or Wheezing Albuterol/Ipratropium 3 ml 10/10/23 12:00 10/12/23 07:48 Ipratropium-Albuterol 3 Ml Neb INHALATION 3 ml RT-QID SIDDHARTH Administration Budesonide 1 mg 10/11/23 20:00 10/12/23 07:48 Budesonide 1 Mg/2 Ml Nebu INHALATION 1 mg RT-BID SIDDHARTH Administration Ciprofloxacin/Dexamethasone 4 drops 10/11/23 21:00 10/11/23 20:50 Ciprofloxacin-Dexameth 0.3-0.1% Drops 7.5 Ml Btl BOTH EARS 4 drops BID SIDDHARTH Administration Dextrose/Water 25 ml 10/11/23 18:14 Dextrose 50% Syringe 50 Ml IVP PER PROTOCOL PRN Hypoglycemia Protocol Dextrose/Water 50 ml 10/11/23 18:14 Dextrose 50% Syringe 50 Ml IVP PER PROTOCOL PRN Hypoglycemia Protocol Doxycycline Monohydrate 100 mg 10/10/23 09:15 10/11/23 20:50 Doxycycline 100 Mg Cap PO 100 mg BID SIDDHARTH Administration Protocol Furosemide 20 mg 10/11/23 15:00 10/11/23 15:31 Furosemide 10 Mg/Ml 2 Ml Vial IV 20 mg DAILY SIDDHARTH Administration Sodium Chloride 1,000 mls @ 75 mls/hr 10/10/23 04:30 10/11/23 20:50 Saline 0.9% IV Not Given .[id number] SIDDHARTH Diltiazem HCl 125 mg/ Sodium 125 mls @ 7.5 mls/hr 10/11/23 15:00 10/11/23 15:47 Chloride IV 7.5 mg/hr .[id number] SIDDHARTH 7.5 mls/hr Administration 7.5 MG/HR Insulin Aspart 0 unit 10/11/23 21:00 10/12/23 06:16 Insulin Aspart (Novolog) 100 Unit/Ml Vial SQ 2 unit ACHS SIDDHARTH Administration Protocol Lactulose 10 gm 10/10/23 22:00 10/11/23 20:50 Lactulose 20 Gm/30 Ml Cup PO 10 gm TID SIDDHARTH Administration Methylprednisolone Sodium Succinate 60 mg 10/10/23 06:00 10/12/23 06:16 Methylprednisolone Sod Succi 125 Mg/2 Ml Vial IV 60 mg Q6HR SIDDHARTH Administration Ondansetron HCl 4 mg 10/10/23 04:25 Ondansetron 4 Mg/2 Ml Vial IVP Q8HR PRN Nausea And Vomiting Pantoprazole Sodium 40 mg 10/10/23 18:00 10/12/23 06:16 Pantoprazole 40 Mg Tablet PO 40 mg AC-BID SIDDHARTH Administration Intake and Output 10/11/23 10/12/23 10/12/23 22:59 06:59 14:59 Intake Total 540 Output Total 650 400 Balance -110 -400 Intake: Oral 540 Output: Urine 650 400 Other: Voiding Method Bedside Commode Bedside Commode # Voids 1 1 # Bowel Movements 1 Weight 92.7 kg 10/11/23 05:02 10/11/23 05:02
--- NOTE | 2023-10-12 14:37 | P.PN ---
Subjective Progress Note Date: 10/12/23 Principal diagnosis: Acute on chronic hypoxic respiratory failure, severe COPD This is a 83-year-old female patient with a known history of squamous cell carcinoma of the left lower lobe status post wedge resection in February 2022. She also has a history of previous right upper lobe resection for adenocarcinoma. She had had recurrent pleural effusions requiring thoracentesis in the past. She does have chronic hypoxic respiratory failure and usually maintained on oxygen at 2 L/min per nasal cannula. She has chronic obstructive pulmonary disease, coronary disease, hyperlipidemia, chronic tobacco dependence, obesity, osteoarthritis, hypertension. Her last CT scan of the chest was May 2023 that showed no suspicious lung nodules. No enlarged mediastinal or hilar adenopathy. No acute pulmonary process at that time. Chronic For somatic changes. She presented here to the emergency room early this morning with increasing shortness of breath cough and congestion. Poor oral intake. Chest x-ray reveals cardiomegaly and chronic and for somatic changes without any new acute pulmonary process. White count 7.5. Hemoglobin 9.8. Platelets 100,000. Sodium 136. Potassium 4.3. Bicarb 24. BUN 29. Creatinine 1.22. Glucose 144. proBNP 9820. Troponin negative x 1. She is seen today in consultation in the emergency department. She is currently sitting up on a stretcher. Awake and alert in no acute distress. Somewhat of a poor historian. She is currently maintaining O2 saturations in the 90s on 2 L/min per nasal cannula. She is afebrile. Hemodynamically stable. The patient is seen today October 11, 2023 in follow-up on the regular medical floor. She is more awake and alert today. Denies any worsening shortness of breath, cough or congestion. She is maintaining O2 saturations in the 90s on 2 L/min per nasal cannula. Glucose 211. Count 9.2. Hemoglobin 9.0. Platelets 187. Sodium 142. Potassium 4.4. Bicarb 26. BUN 28. Creatinine 1.2. She remains on DuoNeb inhalations, Symbicort, Solu-Medrol. Empiric antibiotics in the form of doxycycline. Procalcitonin was 0.11. Patient was reevaluated today on 10/12/2023, patient remains on the cardiac floor, she is on 2 L nasal cannula, does not seem to be in any distress, according to her she is breathing much better and easier now compared to how she felt when she came in. WBC count today is 9.2 hemoglobin 9.0 basic metabolic profile is normal BUN is 28 creatinine 1.2. Procalcitonin level is 0.06, it was 0.[address] of the chest on this admission showed mostly right upper lobe spiculated nodule which seems to be suspicious for malignancy and the patient will need eventually a PET scan on outpatient basis order repeat CT of the chest in 4 months. No evidence of pneumonia noted on the CT of the chest, patient does have moderate emphysema cardiomegaly, and severe coronary atherosclerosis patient was seen by cardiology for paroxysmal supraventricular tachycardia, and the recommendation was to transition patient from Cardizem to verapamil orally, and Toprol-XL 25 mg daily in the meantime continue aspirin and atorvastatin. Patient remains on doxycycline for simple tracheobronchitis. Objective - Vital Signs Vital signs: Vital Signs Temp 97.7 F 10/12/23 08:00 Pulse 70 10/12/23 11:37 Resp 24 10/12/23 08:00 BP 155/85 10/12/23 08:00 Pulse Ox 97 10/12/23 08:00 FiO2 Intake & Output 10/11/23 10/12/23 10/12/23 18:59 06:59 18:59 Intake Total 640 240 Output Total 450 600 Balance 190 -600 240 Weight 92.7 kg Intake: Oral 640 240 Output: Urine 450 600 Other: Voiding Method External Catheter Bedside Commode Bedside Commode # Voids 1 1 # Bowel Movements 1 1 - Exam GENERAL EXAM: Revealed 83-year-old female in no distress, on 2 L nasal cannula HEAD: Normocephalic. EYES: Normal reaction of pupils, equal size. NOSE: Clear with pink turbinates. THROAT: No erythema or exudates. NECK: No masses, no JVD. CHEST: No chest wall deformity. LUNGS: Diminished breath sound bilaterally no rhonchi no wheezes CVS: S1 and S2 normal with no audible murmur, regular rhythm. ABDOMEN: No hepatosplenomegaly, normal bowel sounds, no guarding or rigidity. SKIN: No rashes CENTRAL NERVOUS SYSTEM: Alert and oriented x 3 no gross focal deficits EXTREMITIES: No clubbing edema or cyanosis - Labs CBC & Chem 7: 10/11/23 05:02 10/11/23 05:02 Labs: Abnormal Lab Results - Last 24 Hours (Table) 10/11/23 10/11/23 10/12/23 Range/Units 16:59 19:52 06:00 POC Glucose (mg/dL) 206 H 205 H 172 H (70-110) mg/dL 10/12/23 Range/Units 11:20 POC Glucose (mg/dL) 167 H (70-110) mg/dL Assessment and Plan Assessment: Impression: Acute on chronic hypoxemic respiratory failure secondary to an acute exacerbation of chronic obstructive pulmonary disease. Chest x-ray reveals no acute pulmonary process. Procalcitonin level is now normal Chronic hypoxic respiratory failure currently on oxygen 2 L minute nasal cannula COPD, severe, currently inactive and stable with chronic exertional dyspnea Squamous cell carcinoma of the left lower lobe. The patient had a 1.2 cm mass in left lower lobe underwent wedge resection back in February 2022. Subsequent CAT scan of the chest from May 2023 showed no evidence of any tumor recurrence Early stage adenocarcinoma of the lung. The patient had a previous right upper lobe resection for adenocarcinoma Patient has now a suspicious right upper lobe nodule that may have to be addressed on outpatient basis, would recommend either repeat CT of the chest in 4 months or PET scan, and if hypermetabolic in nature could consider SBRT. History of recurrent right-sided pleural effusion requiring multiple thoracentesis, negative cytology, fluids recovered Coronary artery disease Hyperlipidemia Environmental ALLERGIES History of smoking Obesity with a BMI of 36.6 Osteoarthritis Hypertension Commendation: Continue present bronchodilators Continue doxycycline Consider discharge planning once the patient is cleared by other consultants. Patient to follow-up on outpatient basis for her pulmonary nodule. Will continue to follow for now Time with Patient: Less than 30
--- NOTE | 2023-10-12 15:30 | P.PN ---
Subjective Progress Note Date: 10/12/23 Principal diagnosis: Reason for follow-up is elevated procalcitonin/infection Patient is a 83-year-old female with a past medical history significant for hypertension hyperlipidemia COPD coronary artery disease and a previous history of right upper lobe resection for adenocarcinoma, presenting to the hospital for evaluation of increasing shortness of breath, patient was afebrile CT of the chest right upper lobe spiculated nodule but did not mention any consolidation, procalcitonin was 0.11. On today's evaluation that is 10/12/2023, Patient is afebrile patient is currently on 2 L nasal cannula oxygen patient is breathing more comfortably denies any worsening cough or sputum production no nausea vomiting no abdominal pain no diarrhea. No new labs has been repeated today Objective - Vital Signs Vital signs: Vital Signs Temp 97.7 F 10/12/23 08:00 Pulse 68 10/12/23 15:12 Resp 20 10/12/23 14:00 BP 149/70 10/12/23 12:00 Pulse Ox 100 10/12/23 12:00 FiO2 Intake & Output 10/11/23 10/12/23 10/12/23 18:59 06:59 18:59 Intake Total 640 240 Output Total 450 600 Balance 190 -600 240 Weight 92.7 kg Intake: Oral 640 240 Output: Urine 450 600 Other: Voiding Method External Catheter Bedside Commode Bedside Commode # Voids 1 1 # Bowel Movements 1 1 - Exam GENERAL DESCRIPTION: A elderly female up in the chair in no distress RESPIRATORY SYSTEM: Unlabored breathing , decreased breath sounds at bases HEART: S1 S2 regular rate and rhythm , ABDOMEN: Soft , no tenderness EXTREMITIES: No edema feet - Labs CBC & Chem 7: 10/11/23 05:02 10/11/23 05:02 Labs: Abnormal Lab Results - Last 24 Hours (Table) 10/11/23 10/11/23 10/12/23 Range/Units 16:59 19:52 06:00 POC Glucose (mg/dL) 206 H 205 H 172 H (70-110) mg/dL 10/12/23 Range/Units 11:20 POC Glucose (mg/dL) 167 H (70-110) mg/dL Assessment and Plan (1) Tracheobronchitis Current Visit: Yes Status: Acute Code(s): J40 - BRONCHITIS, NOT SPECIFIED ACUTE OR CHRONIC SNOMED Code(s): 99395391 (2) Elevated procalcitonin Current Visit: Yes Status: Acute Code(s): R79.89 - OTHER SPECIFIED ABNORMAL FINDINGS OF BLOOD CHEMISTRY SNOMED Code(s): 983464354 Plan: 1patient presented to hospital with a increasing shortness of breath and cough more likely related to COPD exacerbation with tracheobronchitis clinically not behaving as pneumonia patient with no fever or elevated white count both the CT chest and chest x-ray not show any acute infiltrates 2-mild elevated procalcitonin, patient to continue with the doxycycline obtain a sputum and monitor clinical course closely Dictation was produced using [employer] dictation software. please excuse any grammatical, word or spelling errors. Time with Patient: Less than 30
[2023-10-12 16:13] LABS: Glucose,Whole Blood 164 mg/dL (70-110)
[2023-10-12 20:08] LABS: Glucose,Whole Blood 203 mg/dL (70-110)
[2023-10-13 06:08] LABS: Glucose,Whole Blood 159 mg/dL (70-110)
[2023-10-13 11:33] LABS: Glucose,Whole Blood 191 mg/dL (70-110)
[2023-10-13 12:53] VITALS: BP 165/79; PULSE 65; RESP 18; TEMP 97.5
--- NOTE | 2023-10-13 13:34 | P.PN ---
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 Patient was admitted to the hospital on 10/09 for COPD exacerbation. We have been asked to evaluate the patient for sinus tachycardia. Patient was previously seen by cardiology in October 2022 during a hospitalization for AV leonora reentrant tachycardia and beta- omar was started. Patient has not followed up in the office. Patient denies having any symptoms at the time of evaluation, she is somewhat confused this morning. She denies having any chest pain. She is tachypneic but denies s hortness of breath. No palpitations no lightheadedness or dizziness. EKG sinus tachycardia, telemetry reviewed, patient is currently in sinus rhythm Chest x-ray: Cardiomegaly and chronic emphysematous changes without new acute pulmonary process. CT of the chest: Right upper lobe spiculated nodule measuring 10 x 9 mm with increase in size from 05/25/2023. Pleural calcifications. Moderate emphyse matous changes. Cardiomegaly. Moderate severe coronary atherosclerosis. Echocardiogram performed 10/11/2023 reveals EF 55 to 60%, technically difficult study. Trace mitral and tricuspid regurgitation. WBC 9.2, hemoglobin 9, platelet count 187. Electrolytes are normal. BUN 28 creatinine 1.2. INR 1. Blood sugar 197. Calcium 9.3, phosphorus 3.0, magnesium 2.4. Liver function test are normal. Troponin negative x 1. proBNP 9820. Procalcitonin 0.11. Home cardiac medications: Coreg 12.5 mg twice daily, Plavix 75 mg daily, Lasix 40 mg daily, potassium chloride 20 mEQ daily. Cardiac catheterization history: 01/01/2018 patient underwent cardiac catheterization with Dr. Booker which revealed calcified right and left coronary system. Critical disease involving the distal right coronary artery with intermediate disease involving the mid right coronary artery. Mild disease involving the left main, left circumflex and left anterior descending artery as well. Patient underwent successful stenting of the distal right coronary artery with NIVIA. 10/12 Patient is currently in a sinus rhythm running in the 70s, blood pressure 157/54. Yesterday, Cardizem drip was discontinued and patient started on verapamil and Toprol-XL. Patient was also started on aspirin and a atorvastatin. Physical examination: Gen: This is a 83-year-old female, sitting on the edge of bed. VS: reviewed. HEENT: Head is atraumatic, normocephalic. Pupils equal, round. Sclerae is anict nikolay. NECK: Supple. No JVD. LUNGS: Bilateral air entry. No intercostal retractions HEART: Regular rate and rhythm. No murmur. ABDOMEN: Soft No tenderness. EXTREMITIES: No pedal edema. No calf tenderness. NEUROLOGICAL: Patient is awake, alert. Assessment: PSVT History of lung cancer Coronary artery disease with previous PCI Hypertension COPD Chronic hypoxic respiratory failure on home O2 Plan: Continue cardiac medications Cardiology will sign off this case and follow on an as-needed basis. Please reconsult for any new concerns. Patient may follow-up in the office in one to 2 weeks. She has made thank you Nurse practitioner note has been reviewed, I agree with documented findings and plan of care. Patient was seen and examined. Objective - Vital Signs Vital signs: Vital Signs Temp 97.5 F L 10/13/23 11:20 Pulse 74 10/13/23 11:42 Resp 18 10/13/23 11:20 BP 165/79 10/13/23 11:20 Pulse Ox 96 10/13/23 11:20 FiO2 Intake & Output 10/12/23 10/13/23 10/13/23 18:59 06:59 18:59 Intake Total 780 180 Output Total 200 Balance 780 -200 180 Weight 92.5 kg Intake: Oral 780 180 Output: Urine 200 Other: Voiding Method Bedside Commode Bedside Commode Bedside Commode # Voids 0 - Labs CBC & Chem 7: 10/11/23 05:02 10/11/23 05:02 Labs: Abnormal Lab Results - Last 24 Hours (Table) 10/12/23 10/12/23 10/13/23 Range/Units 16:11 19:58 06:04 POC Glucose (mg/dL) 164 H 203 H 159 H (70-110) mg/dL 10/13/23 Range/Units 11:31 POC Glucose (mg/dL) 191 H (70-110) mg/dL Microbiology - Last 24 Hours (Table) 10/11/23 15:20 Urine Culture - Final Urine,Voided
--- NOTE | 2023-10-13 14:54 | P.PN ---
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 She also has a history of previous right upper lobe resection for adenocarcinoma. She had had recurrent pleural effusions requiring thoracentesis in the past. She does have chronic hypoxic respiratory failure and usually maintained on oxygen at 2 L/min per nasal cannula. She has chronic obstructive pulmonary disease, coronary disease, hyperlipidemia, chronic tobacco dependence, obesity, osteoarthritis, hypertension. Her last CT scan of the chest was May 2023 that showed no suspicious lung nodules. No enlarged mediastinal or hilar adenopathy. No acute pulmonary process at that time. Chronic For somatic changes. She presented here to the emergency room early this morning with increasing shortness of breath cough and congestion. Poor oral intake. Chest x-ray reveals cardiomegaly and chronic and for somatic changes without any new acute pulmonary process. White count 7.5. Hemoglobin 9.8. Platelets 100,000. Sodium 136. Potassium 4.3. Bicarb 24. BUN 29. Creatinine 1.22. Glucose 144. proBNP 9820. Troponin negative x 1. She is seen today in consultation in the emergency department. She is currently sitting up on a stretcher. Awake and alert in no acute distress. Somewhat of a poor historian. She is currently maintaining O2 saturations in the 90s on 2 L/min per nasal cannula. She is afebrile. Hemodynamically stable. The patient is seen today October 11, 2023 in follow-up on the regular medical floor. She is more awake and alert today. Denies any worsening shortness of breath, cough or congestion. She is maintaining O2 saturations in the 90s on 2 L/min per nasal cannula. Glucose 211. Count 9.2. Hemoglobin 9.0. Platelets 187. Sodium 142. Potassium 4.4. Bicarb 26. BUN 28. Creatinine 1.2. She remains on DuoNeb inhalations, Symbicort, Solu-Medrol. Empiric antibiotics in the form of doxycycline. Procalcitonin was 0.11. Patient was reevaluated today on 10/12/2023, patient remains on the cardiac floor, she is on 2 L nasal cannula, does not seem to be in any distress, according to her she is breathing much better and easier now compared to how she felt when she came in. WBC count today is 9.2 hemoglobin 9.0 basic metabolic profile is normal BUN is 28 creatinine 1.2. Procalcitonin level is 0.06, it was 0.[address] of the chest on this admission showed mostly right upper lobe spiculated nodule which seems to be suspicious for malignancy and the patient will need eventually a PET scan on outpatient basis order repeat CT of the chest in 4 months. No evidence of pneumonia noted on the CT of the chest, patient does have moderate emphysema cardiomegaly, and severe coronary atherosclerosis patient was seen by cardiology for paroxysmal supraventricular tachycardia, and the recommendation was to transition patient from Cardizem to verapamil orally, and Toprol-XL 25 mg daily in the meantime continue aspirin and atorvastatin. Patient remains on doxycycline for simple tracheobronchitis. Patient was reevaluated today on 10/13/2023, patient is doing much better today, breathing a lot easier, she has no active pulmonary symptoms actually. On nasal cannula O2 sats is 96%, denies any cough wheezing or shortness of breath. Cardiology apparently signed off the case, and I assume that she was cleared for discharge by cardiology, and I am clearing the patient myself for discharge if cleared by other consultants. CBC is normal basic metabolic profile is normal renal profile creatinine 1.1 Objective - Vital Signs Vital signs: Vital Signs Temp 97.5 F L 10/13/23 11:20 Pulse 74 10/13/23 11:42 Resp 18 10/13/23 11:20 BP 165/79 10/13/23 11:20 Pulse Ox 96 10/13/23 11:20 FiO2 Intake & Output 10/12/23 10/13/23 10/13/23 18:59 06:59 18:59 Intake Total 780 180 Output Total 200 300 Balance 780 -200 -120 Weight 92.5 kg Intake: Oral 780 180 Output: Urine 200 300 Other: Voiding Method Bedside Commode Bedside Commode Bedside Commode # Voids 0 - Exam GENERAL EXAM: Revealed 83-year-old female in no distress, on 2 L nasal cannula not in any distress, patient is asymptomatic HEAD: Normocephalic. EYES: Normal reaction of pupils, equal size. NOSE: Clear with pink turbinates. THROAT: No erythema or exudates. NECK: No masses, no JVD. CHEST: No chest wall deformity. LUNGS: Diminished breath sound bilaterally no rhonchi no wheezes CVS: S1 and S2 normal with no audible murmur, regular rhythm. ABDOMEN: No hepatosplenomegaly, normal bowel sounds, no guarding or rigidity. SKIN: No rashes CENTRAL NERVOUS SYSTEM: Alert and oriented x 3 no gross focal deficits EXTREMITIES: No clubbing edema or cyanosis - Labs CBC & Chem 7: 10/11/23 05:02 10/11/23 05:02 Labs: Abnormal Lab Results - Last 24 Hours (Table) 10/12/23 10/12/23 10/13/23 Range/Units 16:11 19:58 06:04 POC Glucose (mg/dL) 164 H 203 H 159 H (70-110) mg/dL 10/13/23 Range/Units 11:31 POC Glucose (mg/dL) 191 H (70-110) mg/dL Microbiology - Last 24 Hours (Table) 10/11/23 15:20 Urine Culture - Final Urine,Voided Assessment and Plan Assessment: Impression: Acute on chronic hypoxemic respiratory failure secondary to an acute exacerbation of chronic obstructive pulmonary disease. Chest x-ray reveals no acute pulmonary process. Procalcitonin level is now normal Chronic hypoxic respiratory failure currently on oxygen 2 L minute nasal cannula COPD, severe, currently inactive and stable with chronic exertional dyspnea Squamous cell carcinoma of the left lower lobe. The patient had a 1.2 cm mass in left lower lobe underwent wedge resection back in February 2022. Subsequent CAT scan of the chest from May 2023 showed no evidence of any tumor r ecurrence Early stage adenocarcinoma of the lung. The patient had a previous right upper lobe resection for adenocarcinoma Patient has now a suspicious right upper lobe nodule that may have to be add ressed on outpatient basis, would recommend either repeat CT of the chest in 4 months or PET scan, and if hypermetabolic in nature could consider SBRT. History of recurrent right-sided pleural effusion requiring multiple thoracentesis, negative cytology, fluids recovered Coronary artery disease Hyperlipidemia Environmental ALLERGIES History of smoking Obesity with a BMI of 36.6 Osteoarthritis Hypertension Commendation: Continue present bronchodilators Oral doxycycline outpatient basis for a few more days I am clearing the patient for discharge Patient to follow-up on outpatient basis for her pulmonary nodule. Time with Patient: Less than 30
--- NOTE | 2023-10-13 15:18 | P.PN ---
Subjective Progress Note Date: 10/13/23 Principal diagnosis: Reason for follow-up is elevated procalcitonin/infection Patient is a 83-year-old female with a past medical history significant for hypertension hyperlipidemia COPD coronary artery disease and a previous history of right upper lobe resection for adenocarcinoma, presenting to the hospital for evaluation of increasing shortness of breath, patient was afebrile CT of the chest right upper lobe spiculated nodule but did not mention any consolidation, procalcitonin was 0.11. On today's evaluation that is 10/13/2023, patient has been afebrile, patient is breathing comfortably and is currently on 2 L nasal cannula oxygen, patient denies having any chest pain still complaining of some cough but not been up any sputum no nausea vomiting abdominal pain or diarrhea. No new labs has been obtained today sputum not collected Objective - Vital Signs Vital signs: Vital Signs Temp 97.5 F L 10/13/23 11:20 Pulse 74 10/13/23 11:42 Resp 18 10/13/23 11:20 BP 165/79 10/13/23 11:20 Pulse Ox 96 10/13/23 11:20 FiO2 Intake & Output 10/12/23 10/13/23 10/13/23 18:59 06:59 18:59 Intake Total 780 180 Output Total 200 Balance 780 -200 180 Weight 92.5 kg Intake: Oral 780 180 Output: Urine 200 Other: Voiding Method Bedside Commode Bedside Commode Bedside Commode # Voids 0 - Exam GENERAL DESCRIPTION: A elderly female up in the chair in no distress RESPIRATORY SYSTEM: Unlabored breathing , coarse breath sounds bilaterally HEART: S1 S2 regular rate and rhythm , ABDOMEN: Soft , no tenderness EXTREMITIES: No edema feet - Labs CBC & Chem 7: 10/11/23 05:02 10/11/23 05:02 Labs: Abnormal Lab Results - Last 24 Hours (Table) 10/12/23 10/12/23 10/13/23 Range/Units 16:11 19:58 06:04 POC Glucose (mg/dL) 164 H 203 H 159 H (70-110) mg/dL 10/13/23 Range/Units 11:31 POC Glucose (mg/dL) 191 H (70-110) mg/dL Microbiology - Last 24 Hours (Table) 10/11/23 15:20 Urine Culture - Final Urine,Voided Assessment and Plan (1) Tracheobronchitis Current Visit: Yes Status: Acute Code(s): J40 - BRONCHITIS, NOT SPECIFIED ACUTE OR CHRONIC SNOMED Code(s): 14730839 (2) Elevated procalcitonin Current Visit: Yes Status: Acute Code(s): R79.89 - OTHER SPECIFIED ABNORMAL FINDINGS OF BLOOD CHEMISTRY SNOMED Code(s): 195342500 Plan: 1patient presented to hospital with a increasing shortness of breath and cough more likely related to COPD exacerbation with tracheobronchitis clinically not behaving as pneumonia patient with no fever or elevated white count both the CT chest and chest x-ray not show any acute infiltrates 2-mild elevated procalcitonin however no fever or elevated white count, patient to continue with the doxycycline and try to obtain a sputum. Dictation was produced using [email or web address] dictation software. please excuse any grammatical, word or spelling errors. Time with Patient: Less than 30
--- NOTE | 2023-10-14 04:51 | PN ---
PROGRESS NOTE DATE OF SERVICE: 10/12/2023 SUBJECTIVE: The patient is improving. OBJECTIVE: VITAL SIGNS: Blood pressure is 150/54, pulse is 79, respiratory rate 16 to 18, and temp 98.4. CARDIOVASCULAR: S1, S2. LUNGS: Scattered rhonchi and wheeze. GI: Soft. ENDOCRINE: BMI is over 40. ASSESSMENT AND PLAN: Acute onset of atrial fibrillation, rapid ventricular response, chronic obstructive pulmonary disease, history of pulmonary cancer x2, new pulmonary nodule. Outpatient PET scan. Blood pressure controlled. Prognosis guarded. Continue current treatment. Monitor blood pressure. Her sugars are in mid 100s to 200s. She converted over without getting cardioversion, so possibly to discharge home in the morning. MMODL / IJN: [id number] /
--- NOTE | 2023-10-14 05:06 | DS ---
DISCHARGE SUMMARY DISCHARGE MEDICATIONS: 1. Aspirin 81 mg daily. 2. Isoptin 40 mg b.i.d. 3. Metoprolol succinate 25 mg daily. 4. Ciprodex 4 drops both ears b.i.d. 5. Lipitor 40 mg daily. 6. Vibramycin 100 b.i.d. 7. Senna 0.5 t.i.d. 8. Singulair 10 daily. 9. K-Dur 20 mEq daily. 10.Claritin 10 mg daily. 11.DuoNeb q.i.d. 12.Pepcid 40 b.i.d. 13.Lasix 40 b.i.d. 14.Pulmicort 0.5 b.i.d. CONDITION: Stable. PROGNOSIS: Guarded. Ambulate as tolerated. The patient came in with atrial fibrillation with RVR. She converted over the next 24 to 48 hours. She has an abnormal CT scan of the chest. She will need outpatient PET scan due to a spot in her upper lungs. She has had already 2 resections for lung cancer, 1 squamous cell, 1 adenocarcinoma. She will follow up as an outpatient for this. Cardiology saw her, assessed her, stabilized her, and she was stable for discharge to follow up as an outpatient. Condition stable. Prognosis guarded. Ambulate as tolerated. No cardioversion was needed. She converted overnight. MMMARICARMENL / ERINN: [id number] /
--- NOTE | 2023-10-16 06:42 | CDI ---
Documentation Clarification Form Date: 10/16/2023 From: Esme Cisse Admit Date: 10/10/2023 02:45:00 AM Patient Name: Jana Arellano Visit Number: [id number] Discharge Date: 10/13/2023 03:36:00 PM ATTENTION: The Clinical Documentation Specialists (CDI) and [facility] Coding Staff appreciate your assistance in clarifying documentation. Please respond to the clarification below the line at the bottom and electronically sign. The CDI & [facility] Coding staff will review the response and follow-up if needed. Please note: Queries are made part of the Legal Health Record. If you have any questions, please contact the author of this message via ITS. Dr. Billy Saul, Your patient has the documented diagnosis of diastolic CHF in the H&P. Additional information regarding the acuity of CHF is requested. History/Risk Factors: Hx of right & left lung cancer, Clinical Indicators: White female came in for [id number] respiratory failuresecondary toCOPD exacerbation. VS/Pulse OX: T 98.3, P 130, T 18, BP 96/81, O2 100 on 2L NC BNP: 9820 Echocardiogram Results: Left ventricular ejection fraction is estimated at 55- 60 %.No obvious regional wall motionabnormalities. Borderlineleft ventricular hypertrophy.left ventricularcavitysize normal. 10/09 Chest X Ray: Cardiomegaly and emphysematous change without new acute pulmonary process. Treatment: IV Lasix 20 mg x 3 days In your professional opinion, can you please clarify the acuity of Diastolic CHF if known? [ ] Acute Diastolic Heart Failure (preserved EF) [ ] Chronic Diastolic Heart Failure (preserved EF) [ ] Acute on Chronic Diastolic Heart Failure (preserved EF) [ ] Other, please specify [ ] Unable to determine MTDD
--- NOTE | 2023-10-17 03:51 | PN ---
PROGRESS NOTE ADDENDUM: Acute on chronic diastolic heart failure. MMODL / IJN: [id number] /
== END 2023-10-13 15:36 | disposition home health service (06) | DRG 189 ==
LOC: EC 00:57 → 4SSUR 02:45 → 3SCARD 10-11 15:20
PROVIDERS: ADMIT Family Medicine; ATTEND Family Medicine
DX: J96.21 Acute and chronic respiratory failure with hypoxia (principal); I50.33 Acute on chronic diastolic (congestive) heart failure; J44.0 Chronic obstructive pulmonary disease with (acute) lower respiratory infection; I47.10 Supraventricular tachycardia, unspecified; J44.1 Chronic obstructive pulmonary disease with (acute) exacerbation; I11.0 Hypertensive heart disease with heart failure; I27.20 Pulmonary hypertension, unspecified; J43.9 Emphysema, unspecified; I48.91 Unspecified atrial fibrillation; J20.9 Acute bronchitis, unspecified; E66.9 Obesity, unspecified; Z68.37 Body mass index [BMI] 37.0-37.9, adult; E78.5 Hyperlipidemia, unspecified; I25.10 Atherosclerotic heart disease of native coronary artery without angina pectoris; M19.90 Unspecified osteoarthritis, unspecified site; R91.1 Solitary pulmonary nodule; Z99.81 Dependence on supplemental oxygen; Z79.51 Long term (current) use of inhaled steroids; Z79.02 Long term (current) use of antithrombotics/antiplatelets; Z79.891 Long term (current) use of opiate analgesic; Z79.899 Other long term (current) drug therapy; Z87.891 Personal history of nicotine dependence; Z85.118 Personal history of other malignant neoplasm of bronchus and lung; Z95.5 Presence of coronary angioplasty implant and graft; Z90.2 Acquired absence of lung [part of]; Z88.0 Allergy status to penicillin
CPT/HCPCS: 36415; 71045; 71250; 80053; 83605; 83735; 83880; 84100; 84145; 84484; 85025; 85610; 85730; 87086; 93005; 93306; 94640; 94760; 96361; 96374; 96375; 96376; 99285

== ENCOUNTER 2023-10-20 22:13 | Inpatient (IN) | payer MEDICARE, OTHER ==
--- NOTE | 2023-10-20 23:11 | XR ---
EXAMINATION TYPE: XR chest 2V DATE OF EXAM: 10/20/2023 COMPARISON: Difficulty in breathing. HISTORY: Prior chest x-ray and CT October 10, 2023 TECHNIQUE: Frontal and lateral views of the chest are obtained. FINDINGS: Background chronic emphysematous and pulmonary fibrotic changes lateral greater in the rig ht and lower lungs is redemonstrated. There is no suspicious new focal air space opacity, pleural eff usion, or pneumothorax seen. Cardiomegaly redemonstrated. The osseous structures are intact. IMPRESSION: Chronic changes and cardiomegaly without suspicious new acute pulmonary process.
[2023-10-20 23:20] LABS: INR 1.1 (<1.2); Partial Thromboplastin Time 22.5 sec (22.0-30.0); Prothrombin Time 11.5 sec (10.0-12.5)
[2023-10-20 23:21] LABS: ALT 21 U/L (4-34); AST 24 U/L (14-36); African American GFR (CKD) 65 (>60 ml/min/1.73 sqM); Albumin 3.4 g/dL (3.5-5.0); Alkaline Phosphatase 104 U/L (38-126); Anion Gap 7 mmol/L; Blood Urea Nitrogen 25 mg/dL (7-17); Calcium 9.4 mg/dL (8.4-10.2); Carbon Dioxide 28 mmol/L (22-30); Chloride 102 mmol/L (98-107); Glucose 138 mg/dL (74-99); Non-African American GFR(CKD) 57 (>60 ml/min/1.73 sqM); Potassium 4.6 mmol/L (3.5-5.1); Sodium 137 mmol/L (137-145); Total Bilirubin 1.4 mg/dL (0.2-1.3); Total Protein 6.2 g/dL (6.3-8.2)
[2023-10-20 23:30] LABS: NT-Pro-B-Type Natriuretic Pept 1330 pg/mL
[2023-10-20] MEDS: IPRATROPIUM-ALBUTEROL 3 ML NEB INHALATION STA (23:44)
[2023-10-21] LABS: Basophils % (A) 0 %; Eosinophils # (A) 0.1 k/uL (0-0.7); Eosinophils % (A) 1 %; HCT 35.2 % (34.0-46.0); HGB 11.2 gm/dL (11.4-16.0); Lymphocytes % (A) 10 %; MCH 27.7 pg (25.0-35.0); MCHC 31.7 g/dL (31.0-37.0); MCV 87.2 fL (80.0-100.0); Mean Platelet Volume 9.2; Monocytes # (A) 0.3 k/uL (0-1.0); Monocytes % (A) 3 %; Neutrophils # (A) 8.2 k/uL (1.3-7.7); Neutrophils % (A) 85 %; RBC 4.04 m/uL (3.80-5.40); RDW 14.4 % (11.5-15.5); WBC 9.7 k/uL (3.8-10.6)
[2023-10-21 00:10] LABS: Platelet Count 193 k/uL (150-450)
[2023-10-21] MEDS: methylPREDNISolone SOD SUCCI 125 MG/2 ML VIAL IV STA (00:12)
[2023-10-21] MEDS: IPRATROPIUM-ALBUTEROL 3 ML NEB INHALATION STA (00:42)
[2023-10-21] MEDS: SODIUM CHLORIDE 0.9% 500 ML 500 ML IV ONE (02:24)
--- NOTE | 2023-10-21 02:28 | CT ---
EXAMINATION TYPE: CT chest angio for PE DATE OF EXAM: 10/21/2023 COMPARISON: Prior CTA chest October 15, 2022 HISTORY: Patient complains of weakness and SOB x 1 week. Patient has hx of lung cancer. patient on 2L NC at home CT DLP: 571.1 mGycm. Automated Exposure Control for Dose Reduction was Utilized. CONTRAST: CTA scan of the thorax is performed with IV Contrast, patient injected with 100 mL of Isovue 370, pul monary embolism protocol. MIP Images are created on CT scanner and reviewed. FINDINGS: Exam suboptimal due to motion, this particularly limits evaluation for subcentimeter nodule s LUNGS: Background chronic emphysematous change with overall mosaic attenuation on current study. Ther e is new 1.2 cm posterior right upper lobe nodule axial image 44. Persistent right-sided volume loss is present with mediastinal shift. Mild bibasilar linear scarring and/or atelectasis is redemonstrate d. Trace basilar pleural effusions. No pneumothorax seen bilaterally. MEDIASTINUM: Suboptimal study with most dense contrast in the SVC and the contrast in the adjacent ao rta along with motion. No acute central pulmonary embolism is identified. Difficult evaluating smalle r peripheral segmental and subsegmental vessels on this study. Cardiomegaly is present. No pericardia l effusion is seen. Coronary artery calcification is identified. Moderate peripheral plaque in the th oracic aorta.. OTHER: Internal gallstones are seen. IMPRESSION: 1. Suboptimal study without acute central pulmonary embolism. Cannot exclude smaller peripheral segme ntal and subsegmental PE. 2. Chronic emphysematous change redemonstrated. Persistent cardiomegaly with tiny basilar effusions a nd suspected mild bilateral alveolar edema. Findings raise concern for CHF exacerbation. Correlate cl inically. 3. New suspicious 1.2 cm right upper lobe pulmonary nodule. Neoplasm cannot be excluded. Consider fol low-up nonemergent PET/CT.
[2023-10-21] MEDS ORDERED: IPRATROPIUM-ALBUTEROL 3 ML NEB INHALATION PRN (03:10)
[2023-10-21] MEDS ORDERED: NALOXONE 0.4 MG/ML 1 ML VIAL IV PRN (03:10)
--- NOTE | 2023-10-21 03:13 | ED ---
SOB HPI - General Chief Complaint: Shortness of Breath Stated Complaint: FRANTZ Time Seen by Provider: 10/20/23 22:27 Source: patient, EMS Mode of arrival: EMS Limitations: no limitations - History of Present Illness Initial Comments: 83-year-old female with history of COPD, lung cancer, hyperlipidemia, hypertension is presenting with chief complaint of shortness of breath. She reports that this has been getting worse over the last week. Patient wears 2 L of oxygen at home, she has not required increased oxygen. No chest pain. No fever, cough, congestion, sore throat. No nausea, vomiting, abdominal pain. Patient is noted to be tachypneic and keeps saying "I cannot breathe". Patient was recently admitted, discharged on 10/12. She had a chest CT and was found to have a suspicious nodule, she will require a nonemergent PET scan. - Related Data Home Medications Medication Instructions Recorded Confirmed ALPRAZolam [Xanax] 0.5 mg PO TID 03/19/14 10/10/23 Montelukast [Singulair] 10 mg PO DAILY 09/15/17 10/10/23 Famotidine [Pepcid] 40 mg PO BID 04/27/21 10/10/23 Furosemide [Lasix] 40 mg PO DAILY 04/27/21 10/10/23 Budesonide [Pulmicort] 0.5 mg INHALATION RT-BID 05/24/23 10/10/23 Ipratropium-Albuterol Nebulize 3 ml INHALATION RT-QID 05/24/23 10/10/23 [Duoneb 0.5 mg-3 mg/3 ml Soln] Loratadine [Claritin] 10 mg PO DAILY 05/24/23 10/10/23 Potassium Chloride ER [K-Dur 20] 20 meq PO DAILY 05/24/23 10/10/23 Previous Rx's Medication Instructions Recorded Aspirin 81 mg PO DAILY 90 Days #90 tab 10/13/23 Atorvastatin [Lipitor] 40 mg PO DAILY 90 Days #90 tab 10/13/23 Ciprofloxacin-Dexameth [Ciprodex 4 drops BOTH EARS BID 10 Days #5 ml 10/13/23 Otic Susp] Doxycycline [Vibramycin] 100 mg PO BID 7 Days #14 cap 10/13/23 Metoprolol Succinate (ER) [Toprol 25 mg PO DAILY 90 Days #90 tab 10/13/23 XL] Verapamil [Isoptin] 40 mg PO BID 90 Days #180 tab 10/13/23 Allergies Allergy/AdvReac Type Severity Reaction Status Date / Time Penicillins Allergy Rash/Hives Verified 10/20/23 22:24 Review of Systems ROS Statement: Those systems with pertinent positive or pertinent negative responses have been documented in the HPI. ROS Other: All systems not noted in ROS Statement are negative. 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 History of Any Multi-Drug Resistant Organisms: None Reported Past Surgical History: Appendectomy, Bowel Resection, Ear Surgery, Heart Catheterization With Stent, Hernia Repair, Hysterectomy, Tonsillectomy Additional Past Surgical History / Comment(s): Colon/bowel surgery done in her 30's-21 inches removed, bilateral cataracts removed, bilateral laser eye surgery, hemorroidectomy, hiatal hernia, robotic rt upper lobectomy w/mediastina l lymph node dissection, 1 cardiac stent Past Anesthesia/Blood Transfusion Reactions: No Reported Reaction Additional Past Anesthesia/Blood Transfusion Reaction / Comment(s): no hx blood transfusion Date of Last Stent Placement:: 01/01/18 Past Psychological History: No Psychological Hx Reported Smoking Status: Former smoker Past Alcohol Use History: None Reported Past Drug Use History: None Reported - Past Family History Father Family Medical History: CVA/TIA, Myocardial Infarction ([place]) Mother Family Medical History: Cancer Additional Family Medical History / Comment(s): bowel cancer General Exam Limitations: no limitations General appearance: alert, in no apparent distress Head exam: Present: atraumatic, normocephalic Eye exam: Present: normal appearance, EOMI Neck exam: Present: normal inspection Respiratory exam: Present: wheezes. Absent: rales, rhonchi, stridor Cardiovascular Exam: Present: regular rate, normal rhythm, normal heart sounds. Absent: systolic murmur, diastolic murmur, rubs, gallop, clicks Neurological exam: Present: alert, oriented X3 Psychiatric exam: Present: normal affect, normal mood Skin exam: Present: warm, dry Course Vital Signs 10/20/23 10/20/23 10/20/23 22:17 23:45 23:51 Temperature 97.1 F L Pulse Rate 72 63 65 Respiratory 28 H Rate Blood Pressure 114/64 O2 Sat by Pulse 100 Oximetry 10/21/23 10/21/23 10/21/23 00:42 00:50 03:36 Temperature Pulse Rate 67 70 78 Respiratory 26 H Rate Blood Pressure 143/78 O2 Sat by Pulse 100 Oximetry Medical Decision Making - Medical Decision Making Was pt. sent in by a medical professional or institution (, PA, PIERCING MILL OPERATOR, urgent care, hospital, or intermediate...) When possible be specific @ -No Did you speak to anyone other than the patient for history (EMS, parent, family, police, friend...)? What history was obtained from this source @ -No Did you review nursing and triage notes (agree or disagree)? Why? @ -I reviewed and agree with nursing and triage notes Were old charts reviewed (outside hosp., previous admission, EMS record, old EKG, old radiological studies, urgent care reports/EKG's, intermediate records)? Report findings @ -Most recent admission notes were reviewed Differential Diagnosis (chest pain, altered mental status, abdominal pain women, abdominal pain men, vaginal bleeding, weakness, fever, dyspnea, syncope, headache, dizziness, GI bleed, back pain, seizure, CVA, palpatations, mental health, musculoskeletal)? @ -MDM Differential Dyspnea: Coronary syndrome, arrhythmia, tamponade, asthma, COPD, pulmonary embolism, pneumonia, pneumothorax, pulmonary effusion, anaphylaxis, diabetic ketoacidosis, flailed chest, pulmonary contusion, diaphragmatic rupture, anemia, neuromuscular this is not meant to be an all-inclusive list. EKG interpreted by me (3pts min.). @ -EKG shows sinus rhythm ventricular rate 69. VT interval 179. QRS 76. QT 401. QTc 421. X-rays interpreted by me (1pt min.). @ -Chest x-ray shows chronic changes and cardiomegaly without suspicious new acute pulmonary process CT interpreted by me (1pt min.). @ -CT shows suboptimal study without acute central pulmonary embolism. Cannot exclude small or peripheral segmental and subsegmental PE. Chronic emphysematous change redemonstrated. Persistent cardiomegaly with tiny basilar effusions and suspected mild bilateral alveolar edema. Findings raise concern for CHF exacerbation. New suspicious 1.2 cm right upper lobe pulmonary nodule. Neoplasm cannot be excluded. Consider follow-up nonemergent PET/CT U/S interpreted by me (1pt. min.). @ -None done What testing was considered but not performed or refused? (CT, X-rays, U/S, labs)? Why? @ -None What meds were considered but not given or refused? Why? @ -None Did you discuss the management of the patient with other professionals (professionals i.e. , PA, PIERCING MILL OPERATOR, lab, RT, psych nurse, medical social worker, conservation science officer, teacher, supervisor dog license officer, test case developer)? Give summary @ -My Attending spoke with Dr. Arriola who accepted admission Was smoking cessation discussed for >3mins.? @ -No Was critical care preformed (if so, how long)? @ -No Were there social determinants of health that impacted care today? How? (Homelessness, low income, unemployed, alcoholism, drug addiction, transportation, low edu. Level, literacy, decrease access to med. care, fci, rehab)? @ -No Was there de-escalation of care discussed even if they declined (Discuss DNR or withdrawal of care, Hospice)? DNR status @ -No What co-morbidities impacted this encounter? (DM, HTN, Smoking, COPD, CAD, Cancer, CVA, ARF, Chemo, Hep., AIDS, mental health diagnosis, sleep apnea, morbid obesity)? @ -COPD, history of lung cancer Was patient admitted / discharged? Hospital course, mention meds given and route, prescriptions, significant lab abnormalities, going to OR and other pertinent info. @ -83-year-old female presenting with chief complaint of dyspnea. On exam the patient has diffuse expiratory wheezes. She is on 2 L of oxygen via nasal cannula which she wears regularly at home. Lab work shows no leukocytosis. Hemoglobin 11.2, improved from previous values. Negative troponin. BNP 1330, seems to be trending down from 9820 on 10/09. X-ray shows cardiomegaly with no acute pulmonary infiltrate. D-dimer is 2.45, CTA shows no central pulmonary embolism. There is a suspicious nodule of the right upper lobe. After 2 DuoNebs and Solu-Medrol 125 mg, patient is still complaining of shortness of breath and continues to have expiratory wheeze she will be admitted for COPD exacerbation. Patient is agreeable this plan. I discussed this case with my attending Dr. Davis Undiagnosed new problem with uncertain prognosis? @ -No Drug Therapy requiring intensive monitoring for toxicity (Heparin, Nitro, Insulin, Cardizem)? @ -No Were any procedures done? @ -No Diagnosis/symptom? @ -COPD exacerbation Acute, or Chronic, or Acute on Chronic? @ -Acute Uncomplicated (without systemic symptoms) or Complicated (systemic symptoms)? @ -Complicated Side effects of treatment? @ -No Exacerbation, Progression, or Severe Exacerbation? @ -Exacerbation Poses a threat to life or bodily function? How? (Chest pain, [place], [place], pneumonia, PE, COPD, DKA, ARF, appy, cholecystitis, CVA, Diverticulitis, Homicidal, Suicidal, threat to staff... and all critical care pts) @ -Yes - Lab Data Result diagrams: 10/20/23 22:45 10/20/23 22:45 Lab Results 10/20/23 10/20/23 10/20/23 Range/Units 22:45 22:45 22:45 WBC 9.7 (3.8-10.6) k/uL RBC 4.04 (3.80-5.40) m/uL Hgb 11.2 L (11.4-16.0) gm/dL Hct 35.2 (34.0-46.0) % MCV 87.2 (80.0-100.0) fL MCH 27.7 (25.0-35.0) pg MCHC 31.7 (31.0-37.0) g/dL RDW 14.4 (11.5-15.5) % Plt Count 193 D (150-450) k/uL MPV 9.2 Neutrophils % 85 % Lymphocytes % 10 % Monocytes % 3 % Eosinophils % 1 % Basophils % 0 % Neutrophils # 8.2 H (1.3-7.7) k/uL Lymphocytes # 1.0 (1.0-4.8) k/uL Monocytes # 0.3 (0-1.0) k/uL Eosinophils # 0.1 (0-0.7) k/uL Basophils # 0.0 (0-0.2) k/uL PT 11.5 (10.0-12.5) sec INR 1.1 (<1.2) APTT 22.5 (22.0-30.0) sec D-Dimer (<0.60) mg/L FEU Sodium 137 (137-145) mmol/L Potassium 4.6 (3.5-5.1) mmol/L Chloride 102 (98-107) mmol/L Carbon Dioxide 28 (22-30) mmol/L Anion Gap 7 mmol/L BUN 25 H (7-17) mg/dL Creatinine 0.95 (0.52-1.04) mg/dL Est GFR (CKD-EPI)AfAm 65 (>60 ml/min/1.73 sqM) Est GFR (CKD-EPI)NonAf 57 (>60 ml/min/1.73 sqM) Glucose 138 H (74-99) mg/dL Plasma Lactic Acid Zacarias (0.7-2.0) mmol/L Calcium 9.4 (8.4-10.2) mg/dL Total Bilirubin 1.4 H (0.2-1.3) mg/dL AST 24 (14-36) U/L ALT 21 (4-34) U/L Alkaline Phosphatase 104 (38-126) U/L Troponin I (0.000-0.034) ng/mL NT-Pro-B Natriuret Pep 1330 pg/mL Total Protein 6.2 L (6.3-8.2) g/dL Albumin 3.4 L (3.5-5.0) g/dL Influenza Type A (PCR) (Not Detectd) Influenza Type B (PCR) (Not Detectd) RSV (PCR) (Not Detectd) SARS-CoV-2 (PCR) (Not Detectd) 10/20/23 10/20/23 10/21/23 Range/Units 22:45 22:45 01:13 WBC (3.8-10.6) k/uL RBC (3.80-5.40) m/uL Hgb (11.4-16.0) gm/dL Hct (34.0-46.0) % MCV (80.0-100.0) fL MCH (25.0-35.0) pg MCHC (31.0-37.0) g/dL RDW (11.5-15.5) % Plt Count (150-450) k/uL MPV Neutrophils % % Lymphocytes % % Monocytes % % Eosinophils % % Basophils % % Neutrophils # (1.3-7.7) k/uL Lymphocytes # (1.0-4.8) k/uL Monocytes # (0-1.0) k/uL Eosinophils # (0-0.7) k/uL Basophils # (0-0.2) k/uL PT (10.0-12.5) sec INR (<1.2) APTT (22.0-30.0) sec D-Dimer (<0.60) mg/L FEU Sodium (137-145) mmol/L Potassium (3.5-5.1) mmol/L Chloride (98-107) mmol/L Carbon Dioxide (22-30) mmol/L Anion Gap mmol/L BUN (7-17) mg/dL Creatinine (0.52-1.04) mg/dL Est GFR (CKD-EPI)AfAm (>60 ml/min/1.73 sqM) Est GFR (CKD-EPI)NonAf (>60 ml/min/1.73 sqM) Glucose (74-99) mg/dL Plasma Lactic Acid Zacarias 1.9 (0.7-2.0) mmol/L Calcium (8.4-10.2) mg/dL Total Bilirubin (0.2-1.3) mg/dL AST (14-36) U/L ALT (4-34) U/L Alkaline Phosphatase (38-126) U/L Troponin I <0.012 (0.000-0.034) ng/mL NT-Pro-B Natriuret Pep pg/mL Total Protein (6.3-8.2) g/dL Albumin (3.5-5.0) g/dL Influenza Type A (PCR) Not Detected (Not Detectd) Influenza Type B (PCR) Not Detected (Not Detectd) RSV (PCR) Not Detected (Not Detectd) SARS-CoV-2 (PCR) Not Detected (Not Detectd) 10/21/23 Range/Units 01:13 WBC (3.8-10.6) k/uL RBC (3.80-5.40) m/uL Hgb (11.4-16.0) gm/dL Hct (34.0-46.0) % MCV (80.0-100.0) fL MCH (25.0-35.0) pg MCHC (31.0-37.0) g/dL RDW (11.5-15.5) % Plt Count (150-450) k/uL MPV Neutrophils % % Lymphocytes % % Monocytes % % Eosinophils % % Basophils % % Neutrophils # (1.3-7.7) k/uL Lymphocytes # (1.0-4.8) k/uL Monocytes # (0-1.0) k/uL Eosinophils # (0-0.7) k/uL Basophils # (0-0.2) k/uL PT (10.0-12.5) sec INR (<1.2) APTT (22.0-30.0) sec D-Dimer 2.45 H (<0.60) mg/L FEU Sodium (137-145) mmol/L Potassium (3.5-5.1) mmol/L Chloride (98-107) mmol/L Carbon Dioxide (22-30) mmol/L Anion Gap mmol/L BUN (7-17) mg/dL Creatinine (0.52-1.04) mg/dL Est GFR (CKD-EPI)AfAm (>60 ml/min/1.73 sqM) Est GFR (CKD-EPI)NonAf (>60 ml/min/1.73 sqM) Glucose (74-99) mg/dL Plasma Lactic Acid Zacarias (0.7-2.0) mmol/L Calcium (8.4-10.2) mg/dL Total Bilirubin (0.2-1.3) mg/dL AST (14-36) U/L ALT (4-34) U/L Alkaline Phosphatase (38-126) U/L Troponin I (0.000-0.034) ng/mL NT-Pro-B Natriuret Pep pg/mL Total Protein (6.3-8.2) g/dL Albumin (3.5-5.0) g/dL Influenza Type A (PCR) (Not Detectd) Influenza Type B (PCR) (Not Detectd) RSV (PCR) (Not Detectd) SARS-CoV-2 (PCR) (Not Detectd) Disposition Clinical Impression: COPD exacerbation, CHF (congestive heart failure), Dyspnea Disposition: ADMITTED IP TO THIS HOSP Condition: Fair Time of Disposition: 03:13
[2023-10-21] MEDS: FUROSEMIDE 10 MG/ML 4 ML VIAL IV STA (03:37)
[2023-10-21] MEDS: predniSONE 20 MG TAB PO SCH (08:19)
--- NOTE | 2023-10-21 08:37 | P.CNPUL ---
History of Present Illness Consult date: 10/21/23 Requesting physician: Ezra Arriola Reason for consult: dyspnea, COPD, hypoxemia, abnormal CXR/CT Chief complaint: COPD exacerbation. History of present illness: Pulmonary consult dated October 21, 2023. 83-year-old female with a history of COPD, lung cancer, hyperlipidemia, and hypertension. The patient was seen in the emergency room, on October 19, for shortness of breath. The patient was recently inpatient, and saw our team, on her previous admission, between October 09 and October 12. The patient apparently sees the other pulmonary group for her COPD. She presented with shortness of breath, which has been progressive. She does use home oxygen, at 2 L, 06/02. Other medical history includes a lung cancer history, with a previous wedge, of the left lung lesion, which was squamous cell carcinoma, back in February 2022. She also has a previous history of a right upper lobe wedge resection for adenocarcinoma. In addition, CT scan, shows a new lesion, in the right upper lobe. She does have a history of coronary disease, hyperlipidemia, obesity, and hypertension as well. Currently she is on 2 L. She is in no respiratory distress. She is not receiving any IV fluids. White count 9.7, hemoglobin 11.2, medic at 35.2, platelet count normal. D-dimer 2.45. Sodium 137, potassium 4.6, chlorides 102, CO2 28, BUN 25, creatinine 0.95. Glucose 138. Total bilirubin 1.4. Albumin 3.4. She tested negative for influenza, RSV, and coronavirus. Chest x-ray shows chronic changes, with cardiomegaly. CTA reveals no evidence of central pulmonary emboli. In addition, there are some chronic emphysematous changes, and a new suspicious 1.2 cm right upper lobe pulmonary nodule. Review of Systems REVIEW OF SYSTEMS: CONSTITUTIONAL: [Negative.] NEUROLOGIC: [ Negative.] HEENT: [ Negative.] CARDIAC: [Negative.] PULMONARY: Shortness of breath. GI: [Negative.] : [Negative.] RHEUMATOLOGIC: [ Negative.] IMMUNOLOGIC: [ Negative.] ENDOCRINE: [Negative. 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 History of Any Multi-Drug Resistant Organisms: None Reported Past Surgical History: Appendectomy, Bowel Resection, Ear Surgery, Heart Catheterization With Stent, Hernia Repair, Hysterectomy, Tonsillectomy Additional Past Surgical History / Comment(s): Colon/bowel surgery done in her 30's-21 inches removed, bilateral cataracts removed, bilateral laser eye surgery, hemorroidectomy, hiatal hernia, robotic rt upper lobectomy w/mediastinal lymph node dissection, 1 cardiac stent Past Anesthesia/Blood Transfusion Reactions: No Reported Reaction Additional Past Anesthesia/Blood Transfusion Reaction / Comment(s): no hx blood transfusion Date of Last Stent Placement:: 01/01/18 Past Psychological History: No Psychological Hx Reported Smoking Status: Former smoker Past Alcohol Use History: None Reported Past Drug Use History: None Reported - Past Family History Father Family Medical History: CVA/TIA, Myocardial Infarction ([place]) Mother Family Medical History: Cancer Additional Family Medical History / Comment(s): bowel cancer Medications and Allergies Home Medications Medication Instructions Recorded Confirmed Type ALPRAZolam [Xanax] 0.5 mg PO TID 03/19/14 10/10/23 History Montelukast [Singulair] 10 mg PO DAILY 09/15/17 10/10/23 History Famotidine [Pepcid] 40 mg PO BID 04/27/21 10/10/23 History Furosemide [Lasix] 40 mg PO DAILY 04/27/21 10/10/23 History Budesonide [Pulmicort] 0.5 mg INHALATION RT-BID 05/24/23 10/10/23 History Ipratropium-Albuterol Nebulize 3 ml INHALATION RT-QID 05/24/23 10/10/23 History [Duoneb 0.5 mg-3 mg/3 ml Soln] Loratadine [Claritin] 10 mg PO DAILY 05/24/23 10/10/23 History Potassium Chloride ER [K-Dur 20] 20 meq PO DAILY 05/24/23 10/10/23 History Aspirin 81 mg PO DAILY 90 Days #90 tab 10/13/23 Rx Atorvastatin [Lipitor] 40 mg PO DAILY 90 Days #90 tab 10/13/23 Rx Ciprofloxacin-Dexameth [Ciprodex 4 drops BOTH EARS BID 10 Days #5 ml 10/13/23 Rx Otic Susp] Doxycycline [Vibramycin] 100 mg PO BID 7 Days #14 cap 10/13/23 Rx Metoprolol Succinate (ER) [Toprol 25 mg PO DAILY 90 Days #90 tab 10/13/23 Rx XL] Verapamil [Isoptin] 40 mg PO BID 90 Days #180 tab 10/13/23 Rx Allergies Allergy/AdvReac Type Severity Reaction Status Date / Time Penicillins Allergy Rash/Hives Verified 10/20/23 22:24 Physical Exam Osteopathic Statement: *. No significant issues noted on an osteopathic structural exam other than those noted in the History and Physical/Consult. Vitals: Vital Signs Temp Pulse Pulse Resp BP BP Pulse Ox 10/21/23 07:38 97.5 F L 81 19 155/78 98 10/21/23 05:00 26 H 10/21/23 04:47 97.9 F 84 26 H 170/81 99 10/21/23 03:36 78 26 H 143/78 100 10/21/23 00:50 70 10/21/23 00:42 67 10/20/23 23:51 65 10/20/23 23:45 63 10/20/23 22:17 97.1 F L 72 28 H 114/64 100 Intake and Output 10/20/23 10/21/23 10/21/23 22:59 06:59 14:59 Intake Total 500 Balance 500 Intake: Oral 500 Other: Voiding Method External Catheter # Voids 1 Weight 86.183 kg 86.183 kg No acute distress, oriented 3. No conversational dyspnea or use of accessory muscles. Currently on 2 L by nasal cannula. HEENT examination is grossly unremarkable. Mucous membranes are moist. No oral lesions. Neck supple. Full range of motion. No adenopathy thyromegaly or neck vein distention. Cardiovascular examination reveals regular rhythm rate. S1-S2 normal. No S3 or S4. No discernible murmur noted. Heart rate 81 bpm. Lungs reveal diminished bilateral breath sounds. Scattered rhonchi. Minimal wheezes. No crackles. 2 L saturation is 99%. Abdomen soft bowel sounds are heard. No masses or tenderness. Extremities are intact. No cyanosis clubbing or edema. Skin is without rash or lesion. Neurologic examination is brief but nonfocal. Results - Laboratory Findings CBC and BMP: 10/20/23 22:45 10/20/23 22:45 PT/INR, D-dimer PT 11.5 sec (10.0-12.5) 10/20/23 22:45 INR 1.1 (<1.2) 10/20/23 22:45 D-Dimer 2.45 mg/L FEU (<0.60) H 10/21/23 01:13 Abnormal lab findings: Abnormal Labs 10/20/23 10/20/23 10/21/23 22:45 22:45 01:13 Hgb 11.2 L Neutrophils # 8.2 H D-Dimer 2.45 H BUN 25 H Glucose 138 H Total Bilirubin 1.4 H Total Protein 6.2 L Albumin 3.4 L - Diagnostic Findings Chest x-ray: image reviewed CT scan - chest: image reviewed Assessment and Plan Assessment: Acute COPD exacerbation, in a patient with established COPD. Recent admission to [facility], between October 09 and October 12, for COPD exacerbation. Chronic hypoxemic respiratory failure, on home O2 at 2 L. History of lung cancer, with previous left lung resection February 2022, for squamous cell cancer, and right upper lobe wedge resection, previously for adenocarcinoma. New 1.2 cm lesion, right upper lobe, suspicious for lung cancer. History of coronary artery disease, S/P stent placement. History of hyperlipidemia. History of hypertension. History of osteoarthritis. Prior history of tobacco use. Obesity. Plan: Plan dated October 21, 2023. The patient is seen today in consultation, in room 531. The patient is interviewed and examined. The patient is on 2 L of oxygen by nasal cannula. The patient's not receiving any IV fluids. The patient is in no respiratory distress. The patient's medications are reviewed, and we added prednisone 40 mg a day, and Symbicort 160/4.5, 2 puffs twice a day. We will continue to follow make recommendations along the way. The patient will need an outpatient PET scan, for further evaluation of the lesion in the right upper lobe. She does not see our group, but rather sees Dr. Marshall as her life insurance sales, and should follow-up with him. No additional recommendations are made. Prognosis is guarded. Time with Patient: Greater than 30
[2023-10-21] MEDS: SYMBICORT 160-4.5 MCG INHALER INHALATION SCH (09:29)
[2023-10-21] MEDS: IPRATROPIUM-ALBUTEROL 3 ML NEB INHALATION SCH ×2 (09:30→16:28)
[2023-10-21] MEDS: FUROSEMIDE 40 MG TAB PO SCH (14:30)
[2023-10-21] MEDS: VERAPAMIL 40 MG TAB PO SCH (14:30)
[2023-10-21] MEDS: LORATADINE 10 MG TAB PO SCH (14:31)
[2023-10-21] MEDS: METOPROLOL SUCCINATE (ER) 25 MG TAB.ER.24H PO SCH (14:31)
[2023-10-21] MEDS: ATORVASTATIN 40 MG TAB PO SCH (14:31)
[2023-10-21] MEDS: ALPRAZolam 0.5 MG TAB PO SCH (14:31)
[2023-10-21] MEDS: FAMOTIDINE 20 MG TAB PO SCH (14:31)
[2023-10-21] MEDS: ASPIRIN 81 MG PO SCH (14:32)
[2023-10-21] MEDS: MONTELUKAST 10 MG TAB PO SCH (14:33)
--- NOTE | 2023-10-21 16:21 | P.HPIM ---
History of Present Illness H&P Date: 10/21/23 Chief Complaint: Short of breath I am rounding for Dr. Billy Saul This is a pleasant 83-year-old patient who follows with Dr. Billy Saul. 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 Ex-smoker. Patient presents with 2 weeks of increasing shortness of breath. Occasional cough. Sometimes yellow sputum. Decreased appetite. No fever no chills. No change in bowel pattern. Tired. Review of systems: GEN.: Tired EYES: None HEENT: None NECK: None RESPIRATORY: As above e CARDIOVASCULAR: None GASTROINTESTINAL: None GENITOURINARY: None MUSCULOSKELETAL: Some joint pains e LYMPHATICS: None HEMATOLOGICAL: None PSYCHIATRY: None NEUROLOGICAL: None Social history: Lives with her son. Does use a stroller. Patient smoked for 56 years about a pack and a half a day. No alcohol Physical examination: VITAL SIGNS: 97.1, 72, 28, 1 , 100% on 2 L GENERAL: BMI 34.8, reclining in bed a bit short of breath. EYES: Pupils equal. Conjunctiva dima l. HEENT: External appearance of nose and ears normal, oral cavity grossly normal. NECK: JVD not raised; masses not palpable. HEART: First and second heart sounds are normal; no edema. LUNGS: Respiratory rate creased, diminished breath sound, wheezing. ABDOMEN: Soft, nontender, liver spleen not palpable, no masses palpable. PSYCH: Alert and oriented x3; mood and affect dima l. MUSCULOSKELETAL:No Clubbing/cyanosis;muscles-grossly intact NEUROLOGICAL: Cranial nerves grossly intact; no facial asymmetry, power and sensation grossly intact. LYMPHATICS: No lymph nodes palpable in the axilla and neck INVESTIGATIONS, reviewed in the clinical context: October 19: White count 9.7 hemoglobin 11.2 platelets 193 sodium 137 potassium 4.6 BUN 25 creatinine 0.95 proBNP 1330 Influenza type A, type B, RSV, COVID-19: Not detected EKG tracing personally reviewed by me-poor baseline. Sinus rhythm. Chest x-ray film personally reviewed by me-mediastinum Kita to the right. Loss of lung mass on the right side. CT chest angio for PE: No acute central pulm embolism. Chronic emphysematous changes. Cardiomegaly. Questionable pulm edema. New suspicious 1.2 cm right upper lobe pulmonary nodule. Assessment plan: -Acute COPD exacerbation in a previous smoker. Also with likely underlying restrictive lung disease with loss of lung mass from resection for pulmonary cancer DuoNeb every 4. Oral steroid. Symbicort. -Chronic hypoxic respiratory failure from previous COPD -Prior lung cancer history of adenocarcinoma on the right side and squamous cell carcinoma on the left side. Right upper lobe wedge and some resection on the left side. 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 Home medications resumed. Care was discussed with the patient. Questions answered. Given the complexity and severity of patient's condition expect the patient to be in the hospital at least for 2 overnights Past Medical History Past Medical History: Asthma, Coronary Artery Disease (CAD), Cancer, COPD, Hyperlipidemia, Hypertension, Osteoarthritis (OA), Pneumonia, Respiratory Disorder Additional Past Medical History / Comment(s): Adenocarcinoma of the right upper lobe, history of recurrent right-sided pleural effusion requiring multiple thoracentesis, coronary artery disease, chronic hypoxic respiratory failure maintained on O2, 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 History of Any Multi-Drug Resistant Organisms: None Reported Past Surgical History: Appendectomy, Bowel Resection, Ear Surgery, Heart Catheterization With Stent, Hernia Repair, Hysterectomy, Tonsillectomy Additional Past Surgical History / Comment(s): Colon/bowel surgery done in her 30's-21 inches removed, bilateral cataracts removed, bilateral laser eye surgery, hemorroidectomy, hiatal hernia, robotic rt upper lobectomy w/mediastinal lymph node dissection, 1 cardiac stent Past Anesthesia/Blood Transfusion Reactions: No Reported Reaction Additional Past Anesthesia/Blood Transfusion Reaction / Comment(s): no hx blood transfusion Date of Last Stent Placement:: 01/01/18 Past Psychological History: No Psychological Hx Reported Smoking Status: Former smoker Past Alcohol Use History: None Reported Past Drug Use History: None Reported - Past Family History Father Family Medical History: CVA/TIA, Myocardial Infarction ([place]) Mother Family Medical History: Cancer Additional Family Medical History / Comment(s): bowel cancer Medications and Allergies Home Medications Medication Instructions Recorded Confirmed Type ALPRAZolam [Xanax] 0.5 mg PO TID 03/19/14 10/21/23 History Montelukast [Singulair] 10 mg PO DAILY 09/15/17 10/21/23 History Famotidine [Pepcid] 40 mg PO BID 04/27/21 10/21/23 History Furosemide [Lasix] 40 mg PO DAILY 04/27/21 10/21/23 History Budesonide [Pulmicort] 0.5 mg INHALATION RT-BID 05/24/23 10/21/23 History Ipratropium-Albuterol Nebulize 3 ml INHALATION RT-QID 05/24/23 10/21/23 History [Duoneb 0.5 mg-3 mg/3 ml Soln] Loratadine [Claritin] 10 mg PO DAILY 05/24/23 10/21/23 History Potassium Chloride ER [K-Dur 20] 20 meq PO DAILY 05/24/23 10/21/23 History Aspirin 81 mg PO DAILY 90 Days #90 tab 10/13/23 10/21/23 Rx Atorvastatin [Lipitor] 40 mg PO DAILY 90 Days #90 tab 10/13/23 10/21/23 Rx Metoprolol Succinate (ER) [Toprol 25 mg PO DAILY 90 Days #90 tab 10/13/23 10/21/23 Rx XL] Verapamil [Isoptin] 40 mg PO BID 90 Days #180 tab 10/13/23 10/21/23 Rx Levofloxacin [Levaquin] 500 mg PO DAILY 10/21/23 10/21/23 History methylPREDNISolone [Medrol Dose See Taper PO DAILY 10/21/23 10/21/23 History Pack] Allergies Allergy/AdvReac Type Severity Reaction Status Date / Time Penicillins Allergy Rash/Hives Verified 10/21/23 10:08 Physical Exam Vitals: Vital Signs Temp Pulse Pulse Resp BP BP Pulse Ox 10/21/23 09:30 68 10/21/23 08:00 26 H 10/21/23 07:38 97.5 F L 81 19 155/78 98 10/21/23 05:00 26 H 10/21/23 04:47 97.9 F 84 26 H 170/81 99 10/21/23 03:36 78 26 H 143/78 100 10/21/23 00:50 70 10/21/23 00:42 67 10/20/23 23:51 65 10/20/23 23:45 63 10/20/23 22:17 97.1 F L 72 28 H 114/64 100 Intake and Output 10/20/23 10/21/23 10/21/23 22:59 06:59 14:59 Intake Total 500 Balance 500 Intake: Oral 500 Other: Voiding Method External Catheter External Catheter # Voids 1 Weight 86.183 kg 86.183 kg Results CBC & Chem 7: 10/20/23 22:45 10/20/23 22:45 Labs: Abnormal Lab Results - Last 24 Hours (Table) 10/20/23 10/20/23 10/21/23 Range/Units 22:45 22:45 01:13 Hgb 11.2 L (11.4-16.0) gm/dL Neutrophils # 8.2 H (1.3-7.7) k/uL D-Dimer 2.45 H (<0.60) mg/L FEU BUN 25 H (7-17) mg/dL Glucose 138 H (74-99) mg/dL Total Bilirubin 1.4 H (0.2-1.3) mg/dL Total Protein 6.2 L (6.3-8.2) g/dL Albumin 3.4 L (3.5-5.0) g/dL Thrombosis Risk Factor Assmnt - Choose All That Apply Any of the Below Risk Factors Present?: Yes Each Factor Represents 1 point: Abnormal pulmonary function (COPD), Medical pt on bed rest, Obesity (BMI >25), Swollen legs (current) Other Risk Factors: Yes Each Risk Factor Represents 2 Points: Malignancy Each Risk Factor Represents 3 Points: Age 75 years or older Other congenital or acquired thrombophilia - If yes, enter type in comment: No Thrombosis Risk Factor Assessment Total Risk Factor Score: 9 Thrombosis Risk Factor Assessment Level: High Risk
[2023-10-21] MEDS: NYSTATIN 100,000 UNIT/GM POWD 15 GM TOPICAL SCH (20:06)
--- NOTE | 2023-10-22 08:12 | P.PN ---
Subjective Progress Note Date: 10/22/23 83-year-old female with a history of COPD, lung cancer, hyperlipidemia, and hypertension. The patient was seen in the emergency room, on October 19, for shortness of breath. The patient was recently inpatient, and saw our team, on her previous admission, between October 09 and October 12. The patient apparently sees the other pulmonary group for her COPD. She presented with shortness of breath, which has been progressive. She does use home oxygen, at 2 L, 06/02. Other medical history includes a lung cancer history, with a previous wedge, of the left lung lesion, which was squamous cell carcinoma, back in February 2022. She also has a previous history of a right upper lobe wedge resection for adenocarcinoma. In addition, CT scan, shows a new lesion, in the right upper lobe. She does have a history of coronary disease, hyperlipidemia, obesity, and hypertension as well. Currently she is on 2 L. She is in no respiratory distress. She is not receiving any IV fluids. White count 9.7, hemoglobin 11.2, medic at 35.2, platelet count normal. D-dimer 2.45. Sodium 137, potassium 4.6, chlorides 102, CO2 28, BUN 25, creatinine 0.95. Glucose 138. Total bilirubin 1.4. Albumin 3.4. She tested negative for influenza, RSV, and coronavirus. Chest x-ray shows chronic changes, with cardiomegaly. CTA reveals no evidence of central pulmonary emboli. In addition, there are some chronic emphysematous changes, and a new suspicious 1.2 cm right upper lobe pulmonary nodule. The patient is seen today October 22, 2023 in follow-up on the regular medical floor. She is currently resting comfortably in bed. Awake and alert in no acute distress. Maintaining O2 saturations in the 90s on 3 L/min per nasal cannula. Her cough is improved. She is less short of breath. Her phlegm is clear. No new labs today. She remains on DuoNeb inhalations, Symbicort, prednisone taper. She remains on oral diuretics. Objective - Vital Signs Vital signs: Vital Signs Temp 97.5 F L 10/22/23 07:37 Pulse 88 10/22/23 08:02 Resp 18 10/22/23 07:37 BP 121/73 10/22/23 07:37 Pulse Ox 100 10/22/23 07:37 FiO2 Intake & Output 10/21/23 10/22/23 10/22/23 18:59 06:59 18:59 Intake Total 900 590 Output Total 1500 Balance -600 590 Intake: Oral 900 590 Output: Urine 1500 Other: Voiding Method External Catheter External Catheter - Exam Awake, alert pleasant 83-year-old female on 3 L nasal cannula, no acute distress, oriented 3. No conversational dyspnea or use of accessory muscles. HEENT examination is grossly unremarkable. Mucous membranes are moist. No oral lesions. Neck supple. Full range of motion. No adenopathy thyromegaly or neck vein distention. Cardiovascular examination reveals regular rhythm rate. S1-S2 normal. No S3 or S4. No discernible murmur noted. Lungs reveal diminished bilateral breath sounds. Scattered rhonchi. Minimal wheezes. No crackles. Abdomen soft bowel sounds are heard. No masses or tenderness. Extremities are intact. No cyanosis clubbing or edema. Skin is without rash or lesion. Neurologic examination is brief but nonfocal. - Labs CBC & Chem 7: 10/20/23 22:45 10/20/23 22:45 Assessment and Plan Assessment: Acute COPD exacerbation, in a patient with established COPD. Recent admission to [facility], between October 09 and October 12, for COPD exacerbation. Chronic hypoxemic respiratory failure, on home O2 at 2 L. History of lung cancer, with previous left lung resection February 2022, for squ amous cell cancer, and right upper lobe wedge resection, previously for adenocarcinoma. New 1.2 cm lesion, right upper lobe, suspicious for lung cancer. History of coronary artery disease, S/P stent placement. History of hyperlipidemia. History of hypertension. History of osteoarthritis. Prior history of tobacco use. Obesity. Plan: The patient was seen and evaluated Medications reviewed Stable on 3 L nasal cannula Cleared for discharge from the pulmonary standpoint Follow-up with her insurance analyst in 1 week She will need outpatient PET scan regarding the right upper lobe lung nodule This patient was seen independently by the pulmonary nurse practitioner addressing pulmonary issues I have personally seen and examined the patient, performed the documentation and assessment and plan as written. Number minutes spent on the visit: 25.
--- NOTE | 2023-10-22 13:07 | P.PN ---
Progress Note - Text Progress Note Date: 10/22/23 Chief Complaint: Short of breath I am rounding for Dr. Billy Saul This is a pleasant 83-year-old patient who follows with Dr. Billy Saul. 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 Ex-smoker. Patient presents with 2 weeks of increasing shortness of breath. Occasional cough. Sometimes yellow sputum. Decreased appetite. No fever no chills. No change in bowel pattern. Tired. October 22: Breathing a bit better. Eating well. Will have the patient sit up in a chair. No fever. Active Medications Albuterol/Ipratropium (Ipratropium-Albuterol 3 Ml Neb) 3 ml INHALATION RT-Q2H PRN PRN Reason: Shortness Of Breath Or Wheezing Albuterol/Ipratropium (Ipratropium-Albuterol 3 Ml Neb) 3 ml INHALATION RT-Q4H [facility] Last Admin: 10/22/23 11:33 Dose: 3 ml Alprazolam (Alprazolam 0.5 Mg Tab) 0.5 mg PO TID [facility] Last Admin: 10/22/23 08:00 Dose: 0.5 mg Aspirin (Aspirin 81 Mg) 81 mg PO DAILY [facility] Last Admin: 10/22/23 08:00 Dose: 81 mg Atorvastatin Calcium (Atorvastatin 40 Mg Tab) 40 mg PO DAILY [facility] Last Admin: 10/22/23 08:01 Dose: 40 mg Budesonide/Formoterol Fumarate (Symbicort 160-4.5 Mcg Inhaler) 2 puff INHALATION RT-BID [facility] Last Admin: 10/22/23 07:50 Dose: 2 puff Famotidine (Famotidine 20 Mg Tab) 20 mg PO BID [facility] Last Admin: 10/22/23 08:01 Dose: 20 mg Furosemide (Furosemide 40 Mg Tab) 40 mg PO DAILY [facility] Last Admin: 10/22/23 08:01 Dose: 40 mg Loratadine (Loratadine 10 Mg Tab) 10 mg PO DAILY [facility] Last Admin: 10/22/23 08:01 Dose: 10 mg Metoprolol Succinate (Metoprolol Succinate (Er) 25 Mg Tab.Er.24h) 25 mg PO DAILY [facility] Last Admin: 10/22/23 08:00 Dose: 25 mg Montelukast Sodium (Montelukast 10 Mg Tab) 10 mg PO DAILY [facility] Last Admin: 10/22/23 08:01 Dose: 10 mg Naloxone HCl (Naloxone 0.4 Mg/Ml 1 Ml Vial) 0.2 mg IV Q2M PRN PRN Reason: Opioid Reversal Nystatin (Nystatin 100,000 Unit/Gm Powd 15 Gm) 1 applic TOPICAL BID [facility]; Protocol Last Admin: 10/21/23 20:06 Dose: 1 applic Prednisone (Prednisone 20 Mg Tab) 40 mg PO DAILY [facility] Last Admin: 10/22/23 08:01 Dose: 40 mg Verapamil HCl (Verapamil 40 Mg Tab) 40 mg PO BID [facility] Last Admin: 10/22/23 08:01 Dose: 40 mg Social history: Lives with her son. Does use a stroller. Patient smoked for 56 years about a pack and a half a day. No alcohol Physical examination: VITAL SIGNS: 97.5, 72, 19, 1 one 9 x 67, 99% 2 L GENERAL: Reclining, breathing better. EYES: Pupils equal. Conjunctiva dima l. HEENT: External appearance of nose and ears normal, oral cavity grossly normal. NECK: JVD not raised; masses not palpable. HEART: First and second heart sounds are normal; no edema. LUNGS: Respiratory rate creased, diminished breath sound, wheezing. ABDOMEN: Soft, nontender, liver spleen not palpable, no masses palpable. PSYCH: Alert and oriented x3; mood and affect dima l. INVESTIGATIONS, reviewed in the clinical context: October 19: White count 9.7 hemoglobin 11.2 platelets 193 sodium 137 potassium 4.6 BUN 25 creatinine 0.95 proBNP 1330 Influenza type A, type B, RSV, COVID-19: Not detected EKG tracing personally reviewed by me-poor baseline. Sinus rhythm. Chest x-ray film personally reviewed by me-mediastinum Kita to the right. Loss of lung mass on the right side. CT chest angio for PE: No acute central pulm embolism. Chronic emphysematous changes. Cardiomegaly. Questionable pulm edema. New suspicious 1.2 cm right upper lobe pulmonary nodule. Assessment plan: -Acute COPD exacerbation in a previous smoker. Also with likely underlying restrictive lung disease with loss of lung mass from resection for pulmonary cancer: Better DuoNeb every 4. Oral steroid. Symbicort. -Chronic hypoxic respiratory failure from previous COPD -Prior lung cancer history of adenocarcinoma on the right side and squamous cell carcinoma on the left side. Right upper lobe wedge and some resection on the left side. 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 Continue current medications. Up in a chair. Possible discharge tomorrow. Past Medical History Past Medical History: Asthma, Coronary Artery Disease (CAD), Cancer, COPD, Hyperlipidemia, Hypertension, Osteoarthritis (OA), Pneumonia, Respiratory Disorder Additional Past Medical History / Comment(s): Adenocarcinoma of the right upper lobe, history of recurrent right-sided pleural effusion requiring multiple tho racentesis, coronary artery disease, chronic hypoxic respiratory failure maintained on O2, 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 History of Any Multi-Drug Resistant Organisms: None Reported Past Surgical History: Appendectomy, Bowel Resection, Ear Surgery, Heart Catheterization With Stent, Hernia Repair, Hysterectomy, Tonsillectomy Additional Past Surgical History / Comment(s): Colon/bowel surgery done in her 30's-21 inches removed, bilateral cataracts removed, bilateral laser eye surgery, hemorroidectomy, hiatal hernia, robotic rt upper lobectomy w/mediastinal lymph node dissection, 1 cardiac stent Past Anesthesia/Blood Transfusion Reactions: No Reported Reaction Additional Past Anesthesia/Blood Transfusion Reaction / Comment(s): no hx blood transfusion Date of Last Stent Placement:: 01/01/18 Past Psychological History: No Psychological Hx Reported Smoking Status: Former smoker Past Alcohol Use History: None Reported Past Drug Use History: None Reported
[2023-10-23 18:17] VITALS: RESP 16
--- NOTE | 2023-10-23 19:21 | P.PN ---
Subjective Progress Note Date: 10/23/23 83-year-old female with a history of COPD, lung cancer, hyperlipidemia, and hypertension. The patient was seen in the emergency room, on October 19, for shortness of breath. The patient was recently inpatient, and saw our team, on her previous admission, between October 09 and October 12. The patient apparently sees the other pulmonary group for her COPD. She presented with shortness of breath, which has been progressive. She does use home oxygen, at 2 L, 06/02. Other medical history includes a lung cancer history, with a previous wedge, of the left lung lesion, which was squamous cell carcinoma, back in February 2022. She also has a previous history of a right upper lobe wedge resection for adenocarcinoma. In addition, CT scan, shows a new lesion, in the right upper lobe. She does have a history of coronary disease, hyperlipidemia, obesity, and hypertension as well. Currently she is on 2 L. She is in no respiratory distress. She is not receiving any IV fluids. White count 9.7, hemoglobin 11.2, medic at 35.2, platelet count normal. D-dimer 2.45. Sodium 137, potassium 4.6, chlorides 102, CO2 28, BUN 25, creatinine 0.95. Glucose 138. Total bilirubin 1.4. Albumin 3.4. She tested negative for influenza, RSV, and coronavirus. Chest x-ray shows chronic changes, with cardiomegaly. CTA reveals no evidence of central pulmonary emboli. In addition, there are some chronic emphysematous changes, and a new suspicious 1.2 cm right upper lobe pulmonary nodule. The patient is seen today October 22, 2023 in follow-up on the regular medical floor. She is currently resting comfortably in bed. Awake and alert in no acute distress. Maintaining O2 saturations in the 90s on 3 L/min per nasal cannula. Her cough is improved. She is less short of breath. Her phlegm is clear. No new labs today. She remains on DuoNeb inhalations, Symbicort, prednisone taper. She remains on oral diuretics. On today's evaluation of 10/23/2023, the patient is feeling well. No specific complaints. No significant chest pain. He is less short of breath compared to yesterday. No new labs are available from today. The patient is currently on oral prednisone at a dose of 40 mg p.o. daily. The patient is also on DuoNeb updrafts and Symbicort as maintenance. She is receiving Lasix 40 mg p.o. on a daily basis. Her chest x-ray at time of admission on 10/19/2022 showed cardiomegaly with some mild pulm vessel congestion. CTA of the chest that was done on 10/21/2023 showed no evidence of any pulmonary embolism. There was a new suspicious 1.2 cm right upper lobe pulmonary nodule that needs to be followed up on an outpatient basis. There is chronic emphysema and persistent cardiomegaly noted on the CT of the chest. He is currently on oxygen at 2 L with a pulse ox of 97%. Objective - Vital Signs Vital signs: Vital Signs Temp 97.6 F 10/23/23 07:09 Pulse 76 10/23/23 11:42 Resp 20 10/23/23 07:09 BP 150/76 10/23/23 07:09 Pulse Ox 98 10/23/23 08:11 FiO2 Intake & Output 10/22/23 10/23/23 10/23/23 18:59 06:59 18:59 Intake Total 940 500 Output Total 400 Balance 940 100 Intake: Oral 940 500 Output: Urine 400 Other: Voiding Method External Catheter Bedside Commode Bedside Commode External Catheter External Catheter # Voids 3 1 - Exam Awake, alert pleasant 83-year-old female on 3 L nasal cannula, no acute distress, oriented 3. No conversational dyspnea or use of accessory muscles. HEENT examination is grossly unremarkable. Mucous membranes are moist. No oral lesions. Neck supple. Full range of motion. No adenopathy thyromegaly or neck vein distention. Cardiovascular examination reveals regular rhythm rate. S1-S2 normal. No S3 or S4. No discernible murmur noted. Lungs reveal diminished bilateral breath sounds. Scattered rhonchi. Minimal wheezes. No crackles. Abdomen soft bowel sounds are heard. No masses or tenderness. Extremities are intact. No cyanosis clubbing or edema. Skin is without rash or lesion. Neurologic examination is brief but nonfocal. - Labs CBC & Chem 7: 10/20/23 22:45 10/20/23 22:45 Assessment and Plan Plan: Acute COPD exacerbation, in a patient with established COPD. Clinically stable and the patient is improving on 2 L of oxygen by nasal cannula. Recent admission to [facility] between October 09 and October 12, for COPD exacerbation. Chronic hypoxemic respiratory failure, on home O2 at 2 L. History of lung cancer, with previous left lung resection February 2022, for squamous cell cancer, and right upper lobe wedge resection, previously for adenocarcinoma. New 1.2 cm lesion, right upper lobe, suspicious for lung cancer. This can be followed up on outpatient basis. History of coronary artery disease, S/P stent placement. History of hyperlipidemia. History of hypertension. History of osteoarthritis. Prior history of tobacco use. Obesity. Plan: Clinically stable will continue same management for now Stable on 3 L nasal cannula Cleared for discharge from the pulmonary standpoint Follow-up with her security operations specialist in 1 week She will need outpatient PET scan regarding the right upper lobe lung nodule
[2023-10-23 20:06] VITALS: BP 105/66; PULSE 81; TEMP 97.5
--- NOTE | 2023-10-23 21:00 | P.DS ---
Providers Date of admission: 10/21/23 16:10 Expected date of discharge: 10/23/23 Attending physician: Ezra Arriola Consults: 10/21/23 03:10 Consult Physician Urgent Consulting Provider: Nathan Low Reason/Comments: COPD, pulmonary nodule Do you want consulting provider notified?: Yes, Notify in am Primary care physician: Billy Saul [facility] Course: Chief Complaint: Short of breath I am rounding for Dr. Billy Saul This is a pleasant 83-year-old patient who follows with Dr. Billy Saul. 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 Ex-smoker. Patient presents with 2 weeks of increasing shortness of breath. Occasional cough. Sometimes yellow sputum. Decreased appetite. No fever no chills. No change in bowel pattern. Tired. October 21: Breathing a bit better. Eating well. Will have the patient sit up in a chair. No fever. October 22: Breathing better. Patient is some chronic issues. Discussed with patient. Will be discharged Social history: Lives with her son. Does use a stroller. Patient smoked for 56 years about a pack and a half a day. No alcohol Physical examination: VITAL SIGNS: 97.5, 81, 16, 105 x 76, 97% on 2 L GENERAL: Reclining, better EYES: Pupils equal. Conjunctiva dima l. HEENT: External appearance of nose and ears normal, oral cavity grossly normal. NECK: JVD not raised; masses not palpable. HEART: First and second heart sounds are normal; no edema. LUNGS: Respiratory rate normal, diminished breath sound, ABDOMEN: Soft, nontender, liver spleen not palpable, no masses palpable. PSYCH: Alert and oriented x3; mood and affect dima l. INVESTIGATIONS, reviewed in the clinical context: October 19: White count 9.7 hemoglobin 11.2 platelets 193 sodium 137 potassium 4.6 BUN 25 creatinine 0.95 proBNP 1330 Influenza type A, type B, RSV, COVID-19: Not detected EKG tracing personally reviewed by me-poor baseline. Sinus rhythm. Chest x-ray film personally reviewed by me-mediastinum K[place] to the right. Loss of lung mass on the right side. CT chest angio for PE: No acute central pulm embolism. Chronic emphysematous changes. Cardiomegaly. Questionable pulm edema. New suspicious 1.2 cm right upper lobe pulmonary nodule. Assessment plan: -Acute COPD exacerbation in a previous smoker. Also with likely underlying rest rictive lung disease with loss of lung mass from resection for pulmonary cancer: Improved Discharged on prednisone taper, Symbicort, DuoNeb -Chronic hypoxic respiratory failure from previous COPD Home oxygen 2 L -Prior lung cancer history of adenocarcinoma on the right side and squamous cell carcinoma on the left side. Right upper lobe wedge and some resection on the left side. Resection -CAD with a prior history of stent Toprol-XL -Hyperlipidemia Lipitor 40 mg a day -Essential hypertension Toprol-XL -Chronic gait dysfunction uses a stroller as a baseline -Primary osteoarthritis Pain medicine as needed Disposition: Home Past Medical History Past Medical History: Asthma, Coronary Artery Disease (CAD), Cancer, COPD, Hyperlipidemia, Hypertension, Osteoarthritis (OA), Pneumonia, Respiratory Disorder Additional Past Medical History / Comment(s): Adenocarcinoma of the right upper lobe, history of recurrent right-sided pleural effusion requiring multiple thoracentesis, coronary artery disease, chronic hypoxic respiratory failure maintained on O2, 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 History of Any Multi-Drug Resistant Organisms: None Reported Past Surgical History: Appendectomy, Bowel Resection, Ear Surgery, Heart Catheterization With Stent, Hernia Repair, Hysterectomy, Tonsillectomy Additional Past Surgical History / Comment(s): Colon/bowel surgery done in her 30's-21 inches removed, bilateral cataracts removed, bilateral laser eye surgery, hemorroidectomy, hiatal hernia, robotic rt upper lobectomy w/mediastinal lymph node dissection, 1 cardiac stent Past Anesthesia/Blood Transfusion Reactions: No Reported Reaction Additional Past Anesthesia/Blood Transfusion Reaction / Comment(s): no hx blood transfusion Date of Last Stent Placement:: 01/01/18 Past Psychological History: No Psychological Hx Reported Smoking Status: Former smoker Past Alcohol Use History: None Reported Past Drug Use History: None Reported Plan - Discharge Summary Discharge Rx Participant: No New Discharge Prescriptions: New Nystatin 100,000 Unit/gm Powd [Mycostatin Powder] 1 applic TOPICAL BID #1 each predniSONE 10 mg PO DAILY #30 tab Budesonide-Formot 160-4.5 Mcg [Symbicort 160-4.5 Mcg Inhaler] 2 puff INHALATION RT-BID #1 each Continue ALPRAZolam [Xanax] 0.5 mg PO TID Montelukast [Singulair] 10 mg PO DAILY Potassium Chloride ER [K-Dur 20] 20 meq PO DAILY Loratadine [Claritin] 10 mg PO DAILY Ipratropium-Albuterol Nebulize [Duoneb 0.5 mg-3 mg/3 ml Soln] 3 ml INHALATION RT-QID Aspirin 81 mg PO DAILY 90 Days #90 tab Verapamil [Isoptin] 40 mg PO BID 90 Days #180 tab Metoprolol Succinate (ER) [Toprol XL] 25 mg PO DAILY 90 Days #90 tab Famotidine [Pepcid] 40 mg PO BID Furosemide [Lasix] 40 mg PO DAILY Budesonide [Pulmicort] 0.5 mg INHALATION RT-BID Atorvastatin [Lipitor] 40 mg PO DAILY 90 Days #90 tab Discontinued Levofloxacin [Levaquin] 500 mg PO DAILY methylPREDNISolone [Medrol Dose Pack] See Taper PO DAILY Discharge Medication List ALPRAZolam [Xanax] 0.5 mg PO TID 03/19/14 [History] Montelukast [Singulair] 10 mg PO DAILY 09/15/17 [History] Famotidine [Pepcid] 40 mg PO BID 04/27/21 [History] Furosemide [Lasix] 40 mg PO DAILY 04/27/21 [History] Budesonide [Pulmicort] 0.5 mg INHALATION RT-BID 05/24/23 [History] Ipratropium-Albuterol Nebulize [Duoneb 0.5 mg-3 mg/3 ml Soln] 3 ml INHALATION RT-QID 05/24/23 [History] Loratadine [Claritin] 10 mg PO DAILY 05/24/23 [History] Potassium Chloride ER [K-Dur 20] 20 meq PO DAILY 05/24/23 [History] Aspirin 81 mg PO DAILY 90 Days #90 tab 10/13/23 [Rx] Atorvastatin [Lipitor] 40 mg PO DAILY 90 Days #90 tab 10/13/23 [Rx] Metoprolol Succinate (ER) [Toprol XL] 25 mg PO DAILY 90 Days #90 tab 10/13/23 [Rx] Verapamil [Isoptin] 40 mg PO BID 90 Days #180 tab 10/13/23 [Rx] Budesonide-Formot 160-4.5 Mcg [Symbicort 160-4.5 Mcg Inhaler] 2 puff INHALATION RT-BID #1 each 10/23/23 [Rx] Nystatin 100,000 Unit/gm Powd [Mycostatin Powder] 1 applic TOPICAL BID #1 each 10/23/23 [Rx] predniSONE 10 mg PO DAILY #30 tab 10/23/23 [Rx] Follow up Appointment(s)/Referral(s): Billy Saul MD [Primary Care Provider] - 10/26/23 1:45 pm [facility], [NON-STAFF] - 1 Week Marcelina Joseph MD [STAFF PHYSICIAN] - 11/07/23 10:00 am (office will put you on a cancellation list as well to try to get you in sooner) Patient Instructions/Handouts: Heart Failure (DC), COPD (Chronic Obstructive Pulmonary Disease) (DC), Pulmonary Nodules (DC) Discharge Disposition: HOME WITH HOME HEALTH SERVICES
== END 2023-10-23 19:45 | disposition home health service (06) | DRG 191 ==
LOC: EC 22:13 → 5NMEDONC 10-21 03:12 → OBSVTOIN 10-21 16:10
PROVIDERS: ADMIT Hospitalist; ATTEND Hospitalist
DX: J44.1 Chronic obstructive pulmonary disease with (acute) exacerbation (principal); C34.11 Malignant neoplasm of upper lobe, right bronchus or lung; J96.11 Chronic respiratory failure with hypoxia; C34.32 Malignant neoplasm of lower lobe, left bronchus or lung; Z99.81 Dependence on supplemental oxygen; Z87.891 Personal history of nicotine dependence; E66.9 Obesity, unspecified; E78.5 Hyperlipidemia, unspecified; I25.10 Atherosclerotic heart disease of native coronary artery without angina pectoris; I11.0 Hypertensive heart disease with heart failure; I50.9 Heart failure, unspecified; R91.1 Solitary pulmonary nodule; K44.9 Diaphragmatic hernia without obstruction or gangrene; R26.9 Unspecified abnormalities of gait and mobility; M19.91 Primary osteoarthritis, unspecified site; Z68.34 Body mass index [BMI] 34.0-34.9, adult; Z79.51 Long term (current) use of inhaled steroids; Z79.82 Long term (current) use of aspirin; Z79.899 Other long term (current) drug therapy; Z82.49 Family history of ischemic heart disease and other diseases of the circulatory system; Z90.2 Acquired absence of lung [part of]; Z95.5 Presence of coronary angioplasty implant and graft; Z87.01 Personal history of pneumonia (recurrent); Z88.0 Allergy status to penicillin; Z11.52 Encounter for screening for COVID-19; Z90.49 Acquired absence of other specified parts of digestive tract; Z79.52 Long term (current) use of systemic steroids
CPT/HCPCS: 36415; 71046; 71275; 80053; 83605; 83880; 84484; 85025; 85379; 85610; 85730; 87636; 93005; 94640; 94760; 96361; 96374; 96375; 99285

== ENCOUNTER → 2023-12-25 | Outpatient (CLI) | payer MEDICARE, OTHER ==
--- NOTE | 2023-12-26 06:22 | PE ---
EXAMINATION TYPE: PET CT fusion skull to thigh DATE OF EXAM: 12/25/2023 COMPARISON: Prior PET/CT January 21, 2022 and older studies. Most recent prior chest CT October 21, 2023 HISTORY: Solitary pulmonary nodules, recent abnormal CT. TECHNIQUE: Following the intravenous administration of 9.07 mCi of F-18 FDG, whole body images are p erformed from the skull base to the midthigh. Images are reviewed on the computer in the coronal, ax ial, and sagittal planes. Reconstructed rotating images are created on independent workstation and r eviewed on the computer. A localization and attenuation correction CT is performed in conjunction w ith the PET scan. Blood glucose level equals 119. SCAN: Subsequent Scan FINDINGS: SKULL BASE AND NECK: Mild left paraspinal muscle uptake could reflect inflammatory change. No new cavanaugh spicious areas of abnormal hypermetabolic uptake. CHEST, MEDIASTINUM, AND HILAR REGION: There is background mild to moderate underlying emphysematous c hange redemonstrated. Posttreatment changes to the right lung with right-sided volume loss is redemon strated. More prominent 9 mm posterior right upper lobe pulmonary nodule axial image 70 with mild hyp ermetabolic uptake, max SUV is 5.42. New central left infrahilar hypermetabolic 1.7 x 0.9 cm nodule a xial image 91, max SUV is 13.52. Partially calcified 1.2 cm posterior left lung nodule axial image 96 , max SUV is 8.74. New posterior 8mm left lower lung nodule or nodular consolidation axial image 105 with mild hypermetabolic uptake, max SUV is 5.99. There is additional more prominent mildly hypermeta bolic consolidation and/or atelectasis inferior to this near axial image 114 with mild nodular hyperd ense hypermetabolic uptake medially on image 116, max SUV is 7.00. ABDOMEN AND PELVIS: No new hypermetabolic adrenal masses. Normal excretion redemonstrated. No suspici ous areas of abnormal hypermetabolic uptake OSSEOUS STRUCTURES: No suspicious areas of abnormal hypermetabolic uptake. OTHER CT: Nasal septum is deviated to right of midline. Cardiomegaly with coronary artery calcificati on is redemonstrated. Dependent low density gallstones in gallbladder there is redemonstrated. Large wide neck fat-containing ventral wall hernia redemonstrated. Persistent bilateral common iliac artery aneurysms greatest on the left measuring 2.7 cm in size axial image 180. Uterus is surgically absent . Scattered cortical thinning and volume loss lower pole left kidney redemonstrated. IMPRESSION: New mildly hypermetabolic small bilateral pulmonary nodules. Recurrent or new active meta static neoplasm must be considered as detailed above.
== END | disposition home or self-care (01) ==
LOC: RADPETMAIN 15:31
PROVIDERS: ATTEND Family Medicine
DX: R91.1 Solitary pulmonary nodule (principal)
CPT/HCPCS: 78815; A9552

== ENCOUNTER → 2024-03-25 | Outpatient (CLI) | payer MEDICARE, OTHER ==
--- NOTE | 2024-03-25 14:44 | CT ---
EXAMINATION TYPE: CT chest wo con DATE OF EXAM: 03/25/2024 COMPARISON: 10/10/2023 HISTORY: NODULE CT DLP: 370.5 mGycm. Automated Exposure Control for Dose Reduction was Utilized. TECHNIQUE: CT scan of the thorax is performed without IV contrast. FINDINGS: There are post surgical changes of right upper lobe lobectomy with retraction of the thomas superiorly secondary to volume loss. There are moderate emphysematous changes. A 10 mm nodule in the right lower lobe medially has decreased in size markedly in the interval and no w measures approximately 5 mm. It has a lucent center. Findings raise the question of treated neoplas m.. There are no new or suspicious lung nodules. Again note is made of calcified pleural-based plaques. There is moderate interstitial density in the lower lung zones bilaterally. There is no pleural effusion or pneumothorax. There is no mediastinal, hilar or axillary adenopathy. The great vessels chest are normal. Limited scanning through the upper abdomen reveals renal arteriovascular calcification. No focal osseous lesions are seen. IMPRESSION: 1. Postsurgical changes involving the right upper lobe. 2. Marked reduction in the spiculated mass in the right lower lobe medially. 3. Moderate emphysematous changes. 4. No acute cardiopulmonary disease. 5. Stable pleural based plaques and lower lung zone interstitial changes.
== END | disposition home or self-care (01) ==
LOC: RADCTMAIN 14:10
PROVIDERS: ATTEND Internal Medicine Sleep Medicine
DX: R91.1 Solitary pulmonary nodule
CPT/HCPCS: 71250

== ENCOUNTER 2024-04-22 13:24 | Inpatient (IN) | payer MEDICARE, OTHER ==
--- NOTE | 2024-04-22 13:47 | ED ---
General Adult HPI - General Chief complaint: Upper Respiratory Infection Stated complaint: SOB Time Seen by Provider: 04/22/24 13:26 Source: patient, EMS, RN notes reviewed Mode of arrival: EMS Limitations: no limitations - History of Present Illness Initial comments: Patient is an 84-year-old female present to the emergency department with difficulty in breathing. Onset of symptoms was close to a month ago. Patient does have history of lung cancer. Patient currently is not on any treatment for this. Patient is unclear who her pulmonary doctor or oncologist is. Patient did increase her oxygen at home. No chest pain or cough. No fever. - Related Data Home Medications Medication Instructions Recorded Confirmed ALPRAZolam [Xanax] 0.5 mg PO TID 03/19/14 10/21/23 Montelukast [Singulair] 10 mg PO DAILY 09/15/17 10/21/23 Famotidine [Pepcid] 40 mg PO BID 04/27/21 10/21/23 Furosemide [Lasix] 40 mg PO DAILY 04/27/21 10/21/23 Budesonide [Pulmicort] 0.5 mg INHALATION RT-BID 05/24/23 10/21/23 Ipratropium-Albuterol Nebulize 3 ml INHALATION RT-QID 05/24/23 10/21/23 [Duoneb 0.5 mg-3 mg/3 ml Soln] Loratadine [Claritin] 10 mg PO DAILY 05/24/23 10/21/23 Potassium Chloride ER [K-Dur 20] 20 meq PO DAILY 05/24/23 10/21/23 Previous Rx's Medication Instructions Recorded Aspirin 81 mg PO DAILY 90 Days #90 tab 10/13/23 Atorvastatin [Lipitor] 40 mg PO DAILY 90 Days #90 tab 10/13/23 Metoprolol Succinate (ER) [Toprol 25 mg PO DAILY 90 Days #90 tab 10/13/23 XL] Verapamil [Isoptin] 40 mg PO BID 90 Days #180 tab 10/13/23 Budesonide-Formot 160-4.5 Mcg 2 puff INHALATION RT-BID #1 each 10/23/23 [Symbicort 160-4.5 Mcg Inhaler] Nystatin 100,000 Unit/gm Powd 1 applic TOPICAL BID #1 each 10/23/23 [Mycostatin Powder] predniSONE 10 mg PO DAILY #30 tab 10/23/23 Allergies Allergy/AdvReac Type Severity Reaction Status Date / Time Penicillins Allergy Rash/Hives Verified 04/22/24 14:12 Review of Systems ROS Statement: Those systems with pertinent positive or pertinent negative responses have been documented in the HPI. ROS Other: All systems not noted in ROS Statement are negative. Constitutional: Denies: fever Eyes: Denies: eye pain ENT: Denies: ear pain Respiratory: Reports: as per HPI, dyspnea Cardiovascular: Denies: chest pain Endocrine: Reports: fatigue Musculoskeletal: Denies: back pain Past Medical History Past Medical History: Asthma, Coronary Artery Disease (CAD), Cancer, COPD, Hyperlipidemia, Hypertension, Osteoarthritis (OA), Pneumonia, Respiratory Disorder Additional Past Medical History / Comment(s): Adenocarcinoma of the right upper lobe, history of recurrent right-sided pleural effusion requiring multiple thoracentesis, coronary artery disease, chronic hypoxic respiratory failure maintained on O2, 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 History of Any Multi-Drug Resistant Organisms: None Reported Past Surgical History: Appendectomy, Bowel Resection, Ear Surgery, Heart Catheterization With Stent, Hernia Repair, Hysterectomy, Tonsillectomy Additional Past Surgical History / Comment(s): Colon/bowel surgery done in her 30's-21 inches removed, bilateral cataracts removed, bilateral laser eye surg vianey, hemorroidectomy, hiatal hernia, robotic rt upper lobectomy w/mediastinal lymph node dissection, 1 cardiac stent Past Anesthesia/Blood Transfusion Reactions: No Reported Reaction Additional Past Anesthesia/Blood Transfusion Reaction / Comment(s): no hx blood transfusion Date of Last Stent Placement:: 01/01/18 Past Psychological History: No Psychological Hx Reported Smoking Status: Former smoker Past Alcohol Use History: None Reported Past Drug Use History: None Reported - Past Family History Father Family Medical History: CVA/TIA, Myocardial Infarction (PR) Mother Family Medical History: Cancer Additional Family Medical History / Comment(s): bowel cancer General Exam Limitations: no limitations General appearance: alert, in no apparent distress Head exam: Present: normocephalic Eye exam: Present: normal appearance Neck exam: Present: normal inspection Respiratory exam: Present: respiratory distress (Mild), decreased breath sounds Cardiovascular Exam: Present: regular rate, normal rhythm GI/Abdominal exam: Present: soft. Absent: tenderness Extremities exam: Present: normal inspection. Absent: pedal edema, calf tenderness Neurological exam: Present: alert Psychiatric exam: Present: normal affect, normal mood Skin exam: Present: normal color Course Vital Signs 04/22/24 04/22/24 04/22/24 13:26 14:10 14:18 Temperature 97.5 F L Pulse Rate 86 88 88 Respiratory 24 16 18 Rate Blood Pressure 145/70 O2 Sat by Pulse 100 Oximetry 04/22/24 16:22 Temperature Pulse Rate 84 Respiratory 22 Rate Blood Pressure 136/73 O2 Sat by Pulse 97 Oximetry EKG Findings - EKG Results: EKG: interpreted by ERMD (Significant artifact is present.), sinus rhythm, normal axis, normal QRS, normal ST/T Medical Decision Making - Medical Decision Making Was pt. sent in by a medical professional or institution (, PA, KNOTTING MACHINE OPERATOR, urgent care, hospital, or fdc...) When possible be specific @ -No Did you speak to anyone other than the patient for history (EMS, parent, family, police, friend...)? What history was obtained from this source @ -No Did you review nursing and triage notes (agree or disagree)? Why? @ -I reviewed and agree with nursing and triage notes Were old charts reviewed (outside hosp., previous admission, EMS record, old EKG, old radiological studies, urgent care reports/EKG's, fdc records)? Report findings @ -Previous charts do reveal that patient has seen Dr. Stevens in the past Differential Diagnosis (chest pain, altered mental status, abdominal pain women, abdominal pain men, vaginal bleeding, weakness, fever, dyspnea, syncope, headac he, dizziness, GI bleed, back pain, seizure, CVA, palpatations, mental health, musculoskeletal)? @ -Differential Dyspnea: Coronary syndrome, arrhythmia, tamponade, asthma, COPD, pulmonary embolism, pneumonia, pneumothorax, pulmonary effusion, anaphylaxis, diabetic ketoacidosis, flailed chest, pulmonary contusion, diaphragmatic rupture, anemia, neuromuscular, this is not meant to be an all-inclusive list. EKG interpreted by me (3pts min.). @ -As above X-rays interpreted by me (1pt min.). @ -Chest x-ray shows left-sided effusion CT interpreted by me (1pt min.). @ -Please scan negative for pulmonary embolism. There is left-sided effusion U/S interpreted by me (1pt. min.). @ -None done What testing was considered but not performed or refused? (CT, X-rays, U/S, labs)? Why? @ -None What meds were considered but not given or refused? Why? @ -None Did you discuss the management of the patient with other professionals (professionals i.e. , PA, KNOTTING MACHINE OPERATOR, lab, RT, psych nurse, social work supervisor, hotel reservationist, teacher, health officer, case finishing machine adjuster)? Give summary @ -Case discussed with Dr. Saul who will admit his patient with consult with Dr. Stevens Was smoking cessation discussed for >3mins.? @ -No Was critical care preformed (if so, how long)? @ -No Were there social determinants of health that impacted care today? How? (Homelessness, low income, unemployed, alcoholism, drug addiction, transportation, low edu. Level, literacy, decrease access to med. care, shelter, rehab)? @ -No Was there de-escalation of care discussed even if they declined (Discuss DNR or withdrawal of care, Hospice)? DNR status @ -No What co-morbidities impacted this encounter? (DM, HTN, Smoking, COPD, CAD, Ca ncer, CVA, ARF, Chemo, Hep., AIDS, mental health diagnosis, sleep apnea, morbid obesity)? @ -3 of lung cancer Was patient admitted / discharged? Hospital course, mention meds given and route, prescriptions, significant lab abnormalities, going to OR and other pertinent info. @ -Patient presents with dyspnea with history of lung cancer and new left-sided effusion. Patient will be admitted with pulmonary consult. Admission orders written. Undiagnosed new problem with uncertain prognosis? @ -No Drug Therapy requiring intensive monitoring for toxicity (Heparin, Nitro, Insulin, Cardizem)? @ -No Were any procedures done? @ -No Diagnosis/symptom? @ -Dyspnea, pleural effusion Acute, or Chronic, or Acute on Chronic? @ -Acute, acute Uncomplicated (without systemic symptoms) or Complicated (systemic symptoms)? @ -Default Side effects of treatment? @ -No Exacerbation, Progression, or Severe Exacerbation? @ -No Poses a threat to life or bodily function? How? (Chest pain, [place], PR, pneumonia, PE, COPD, DKA, ARF, appy, cholecystitis, CVA, Diverticulitis, Homicidal, Suicidal, threat to staff... and all critical care pts) @ -Threat to pulmonary function - Lab Data Result diagrams: 04/22/24 14:12 04/22/24 14:12 Lab Results 04/22/24 04/22/24 04/22/24 Range/Units 14:12 14:12 14:12 WBC 7.5 (3.8-10.6) k/uL RBC 3.42 L (3.80-5.40) m/uL Hgb 9.8 L (11.4-16.0) gm/dL Hct 31.2 L (34.0-46.0) % MCV 91.2 (80.0-100.0) fL MCH 28.7 (25.0-35.0) pg MCHC 31.4 (31.0-37.0) g/dL RDW 15.5 (11.5-15.5) % Plt Count 248 (150-450) k/uL MPV 8.2 Neutrophils % 78 % Lymphocytes % 13 % Monocytes % 5 % Eosinophils % 2 % Basophils % 0 % Neutrophils # 5.9 (1.3-7.7) k/uL Lymphocytes # 1.0 (1.0-4.8) k/uL Monocytes # 0.4 (0-1.0) k/uL Eosinophils # 0.1 (0-0.7) k/uL Basophils # 0.0 (0-0.2) k/uL Hypochromasia Moderate PT 10.5 (10.0-12.5) sec INR 0.9 (<1.2) APTT 20.6 L (22.0-30.0) sec D-Dimer 2.87 H (<0.60) mg/L FEU Sodium 139 (137-145) mmol/L Potassium 3.7 (3.5-5.1) mmol/L Chloride 99 (98-107) mmol/L Carbon Dioxide 38 H (22-30) mmol/L Anion Gap 2 mmol/L BUN 25 H (7-17) mg/dL Creatinine 1.03 (0.52-1.04) mg/dL Est GFR (CKD-EPI)AfAm 59 (>60 ml/min/1.73 sqM) Est GFR (CKD-EPI)NonAf 51 (>60 ml/min/1.73 sqM) Glucose 235 H (74-99) mg/dL Plasma Lactic Acid Zacarias (0.7-2.0) mmol/L Calcium 9.3 (8.4-10.2) mg/dL Magnesium 2.2 (1.6-2.3) mg/dL Total Bilirubin 1.3 (0.2-1.3) mg/dL AST 20 (14-36) U/L ALT 15 (4-34) U/L Alkaline Phosphatase 114 (38-126) U/L Troponin I (0.000-0.034) ng/mL NT-Pro-B Natriuret Pep 294 pg/mL Total Protein 6.3 (6.3-8.2) g/dL Albumin 3.7 (3.5-5.0) g/dL Influenza Type A (PCR) (Not Detectd) Influenza Type B (PCR) (Not Detectd) RSV (PCR) (Not Detectd) SARS-CoV-2 (PCR) (Not Detectd) 04/22/24 04/22/24 04/22/24 Range/Units 14:12 14:12 14:12 WBC (3.8-10.6) k/uL RBC (3.80-5.40) m/uL Hgb (11.4-16.0) gm/dL Hct (34.0-46.0) % MCV (80.0-100.0) fL MCH (25.0-35.0) pg MCHC (31.0-37.0) g/dL RDW (11.5-15.5) % Plt Count (150-450) k/uL MPV Neutrophils % % Lymphocytes % % Monocytes % % Eosinophils % % Basophils % % Neutrophils # (1.3-7.7) k/uL Lymphocytes # (1.0-4.8) k/uL Monocytes # (0-1.0) k/uL Eosinophils # (0-0.7) k/uL Basophils # (0-0.2) k/uL Hypochromasia PT (10.0-12.5) sec INR (<1.2) APTT (22.0-30.0) sec D-Dimer (<0.60) mg/L FEU Sodium (137-145) mmol/L Potassium (3.5-5.1) mmol/L Chloride (98-107) mmol/L Carbon Dioxide (22-30) mmol/L Anion Gap mmol/L BUN (7-17) mg/dL Creatinine (0.52-1.04) mg/dL Est GFR (CKD-EPI)AfAm (>60 ml/min/1.73 sqM) Est GFR (CKD-EPI)NonAf (>60 ml/min/1.73 sqM) Glucose (74-99) mg/dL Plasma Lactic Acid Zacarias 1.6 (0.7-2.0) mmol/L Calcium (8.4-10.2) mg/dL Magnesium (1.6-2.3) mg/dL Total Bilirubin (0.2-1.3) mg/dL AST (14-36) U/L ALT (4-34) U/L Alkaline Phosphatase (38-126) U/L Troponin I <0.012 (0.000-0.034) ng/mL NT-Pro-B Natriuret Pep pg/mL Total Protein (6.3-8.2) g/dL Albumin (3.5-5.0) g/dL Influenza Type A (PCR) Not Detected (Not Detectd) Influenza Type B (PCR) Not Detected (Not Detectd) RSV (PCR) Not Detected (Not Detectd) SARS-CoV-2 (PCR) Not Detected (Not Detectd) Disposition Clinical Impression: Dyspnea, Pleural effusion Disposition: ADMITTED IP TO THIS HOSP Is patient prescribed a controlled substance at d/c from ED?: No Referrals: Billy Saul MD [Primary Care Provider] - 1-2 days Time of Disposition: 16:44
[2024-04-22] MEDS: IPRATROPIUM-ALBUTEROL 3 ML NEB INHALATION STA (14:10)
[2024-04-22 14:18] LABS: Basophils % (A) 0 %; Eosinophils # (A) 0.1 k/uL (0-0.7); Eosinophils % (A) 2 %; HCT 31.2 % (34.0-46.0); HGB 9.8 gm/dL (11.4-16.0); Hypochromasia Moderate; Lymphocytes % (A) 13 %; MCH 28.7 pg (25.0-35.0); MCHC 31.4 g/dL (31.0-37.0); MCV 91.2 fL (80.0-100.0); Mean Platelet Volume 8.2; Monocytes # (A) 0.4 k/uL (0-1.0); Monocytes % (A) 5 %; Neutrophils # (A) 5.9 k/uL (1.3-7.7); Neutrophils % (A) 78 %; Platelet Count 248 k/uL (150-450); RBC 3.42 m/uL (3.80-5.40); RDW 15.5 % (11.5-15.5); WBC 7.5 k/uL (3.8-10.6)
[2024-04-22 14:32] LABS: ALT 15 U/L (4-34); AST 20 U/L (14-36); African American GFR (CKD) 59 (>60 ml/min/1.73 sqM); Albumin 3.7 g/dL (3.5-5.0); Alkaline Phosphatase 114 U/L (38-126); Anion Gap 2 mmol/L; Blood Urea Nitrogen 25 mg/dL (7-17); Calcium 9.3 mg/dL (8.4-10.2); Carbon Dioxide 38 mmol/L (22-30); Chloride 99 mmol/L (98-107); Glucose 235 mg/dL (74-99); Magnesium 2.2 mg/dL (1.6-2.3); Non-African American GFR(CKD) 51 (>60 ml/min/1.73 sqM); Potassium 3.7 mmol/L (3.5-5.1); Sodium 139 mmol/L (137-145); Total Bilirubin 1.3 mg/dL (0.2-1.3); Total Protein 6.3 g/dL (6.3-8.2)
[2024-04-22 14:39] LABS: INR 0.9 (<1.2); Prothrombin Time 10.5 sec (10.0-12.5)
[2024-04-22 14:41] LABS: NT-Pro-B-Type Natriuretic Pept 294 pg/mL
--- NOTE | 2024-04-22 14:50 | XR ---
EXAMINATION TYPE: XR chest 2V DATE OF EXAM: 04/22/2024 COMPARISON: 10/20/2023 HISTORY: Shortness of breath TECHNIQUE: Frontal and lateral views of the chest are obtained. FINDINGS: Scattered senescent parenchymal changes noted. Hyperinflation compatible with COPD. Cardiomegaly with pulmonary venous congestion left basilar opacity which may reflect a combination of effusion, atelectasis and/or infiltrate. Correlate clinically. Mediastinal structures are stable and grossly unremarkable. No evidence for hilar prominence. Degenerative changes dorsal spine. IMPRESSION: 1. Cardiomegaly with pulmonary venous congestion left basilar opacity which may reflect a combination of effusion, atelectasis and/or infiltrate. Correlate clinically. [facility], , 04/22/2024 2:47 PM
[2024-04-22 14:56] LABS: Partial Thromboplastin Time 20.6 sec (22.0-30.0)
--- NOTE | 2024-04-22 15:31 | CT ---
EXAMINATION TYPE: CT angio chest DATE OF EXAM: 04/22/2024 3:22 PM COMPARISON: 01/24/2018 HISTORY: SOB, positive dimer CT DLP: 490.5 mGycm Automated exposure control for dose reduction was used. CONTRAST: CTA scan of the thorax is performed with IV Contrast, patient injected with 80 mL of Isovue 370, pulm onary embolism protocol FINDINGS: There are postsurgical changes of right upper and middle lobe pneumonectomy with volume loss and shif t of mediastinum to the right. There is a large left pleural effusion with compressive atelectasis or left lung pneumonia. There are no filling defects within the pulmonary arterial circulation to suggest pulmonary embolism. There is no adenopathy. Limited scans the upper abdomen reveals no abnormality. No focal osseous lesions are seen. IMPRESSION: 1. No evidence of pulmonary embolus. 2. Large left pleural effusion with compressive atelectasis in left lung pneumonia. 3. Post surgical changes of partial pneumonectomy on the right with volume loss as described above. [facility], , 04/22/2024 3:28 PM
[2024-04-22] MEDS ORDERED: NALOXONE 0.4 MG/ML 1 ML VIAL IV PRN (16:44)
[2024-04-22] MEDS: FAMOTIDINE 20 MG TAB PO SCH (20:27)
[2024-04-22] MEDS: BUDESONIDE 0.5 MG/2 ML NEBU INHALATION SCH (21:05)
[2024-04-22] MEDS: IPRATROPIUM-ALBUTEROL 3 ML NEB INHALATION SCH (21:05)
[2024-04-23] MEDS: ALPRAZolam 0.5 MG TAB PO PRN (04:05)
[2024-04-23] MEDS ORDERED: IPRATROPIUM-ALBUTEROL 3 ML NEB INHALATION PRN (05:23)
[2024-04-23] MEDS: methylPREDNISolone SOD SUCCI 40 MG/ML 1 ML VIAL IV SCH (05:52)
[2024-04-23] MEDS ORDERED: methylPREDNISolone SOD SUCCI 40 MG/ML 1 ML VIAL IV SCH (08:00)
[2024-04-23] MEDS ORDERED: FUROSEMIDE 40 MG TAB PO SCH (09:00)
[2024-04-23] MEDS: FAMOTIDINE 20 MG TAB PO SCH (09:06)
[2024-04-23] MEDS: ATORVASTATIN 40 MG TAB PO SCH (09:06)
[2024-04-23] MEDS: FUROSEMIDE 10 MG/ML 4 ML VIAL IV SCH (09:06)
[2024-04-23] MEDS: CLOPIDOGREL 75 MG TAB PO SCH (09:07)
[2024-04-23] MEDS: MONTELUKAST 10 MG TAB PO SCH (09:07)
[2024-04-23] MEDS: METOPROLOL SUCCINATE (ER) 25 MG TAB.ER.24H PO SCH (09:07)
[2024-04-23] MEDS: LORATADINE 10 MG TAB PO SCH (09:07)
[2024-04-23] MEDS: POTASSIUM CHLORIDE ER 20 MEQ TAB.ER PO SCH (09:07)
--- NOTE | 2024-04-23 13:39 | US ---
EXAMINATION TYPE: US chest DATE OF EXAM: 04/23/2024 COMPARISON: NONE CLINICAL INDICATION: Female, 84 years old with history of pleural effusion; SOB, abn CT, patient does not sit erect without help TECHNIQUE: Grayscale imaging of the chest. Targeted ultrasound of the posterior lower Left FINDINGS: EXAM MEASUREMENTS: Left Pleural Effusion pocket size: 11.9 - 5.1cm pocket prior to lung tissue Left skin surface to fluid distance: 4.2cm Left side marked for possible thoracentesis outside the dept. Pulmonologists are able to review the images in the patient?s EMR. IMPRESSIONS: As above [facility], , 04/23/2024 1:37 PM
--- NOTE | 2024-04-24 05:49 | HP ---
HISTORY AND PHYSICAL HISTORY OF PRESENT ILLNESS: Jana Arellano came to the hospital with shortness of breath. Has a left large pleural effusion about 11+ cm by Radiology Department, Pulmonary doctors ordered, waiting for chest ultrasound confirmed the fluid needs to be drained. She is breathing in the high 90s on 3 L. MEDICATIONS: Include, 1. DuoNeb q.i.d. 2. [place] 7.5 t.i.d. 3. Lipitor 40 mg daily. 4. Pulmicort 0.5 b.i.d. 5. Plavix 75 mg daily. 6. Pepcid 40 mg daily. 7. Lasix 40 IV q.12 hours. 8. Loratadine 10 mg daily. 9. Toprol-XL 50 daily. 10.Solu-Medrol 40 IV q.8h. 11.Singulair 10 mg daily. 12.Potassium chloride 20 mEq daily. 13.Pepcid 40 b.i.d. REVIEW OF SYSTEMS: Positive for shortness of breath, dyspnea, weight gain, status post lumpectomy, lobectomy twice from prior lung cancers. PHYSICAL EXAMINATION: VITAL SIGNS: Stable, afebrile. CARDIOVASCULAR: S1, S2. LUNGS: Scattered wheeze and rhonchi. HEMATOLOGY: Negative Homans. GI: Soft. NEUROLOGIC: Cranial nerves intact. PSYCH: Fair mood and affect. Jana has large pleural effusion, acute on chronic COPD exacerbation. History of lung cancer x2. Continues on IV Lasix for diastolic heart failure, Solu-Medrol, Toprol- XL for hypertension, montelukast for allergies, Pepcid for GERD. Continue current treatment. Prognosis guarded. Wait for thoracentesis. MMODL / IJN: [id number] /
--- NOTE | 2024-04-24 11:28 | CDI ---
Documentation Clarification Form Date: 04/24/2024 11:06:25 AM From: Bianca Vicente RN CCDS Phone: [phone] Admit Date: 04/22/2024 04:46:00 PM Patient Name: Jana Arellano Visit Number: [id number] Discharge Date: ATTENTION: The Clinical Documentation Specialists (CDI) and [facility] Coding Staff appreciate your assistance in clarifying documentation. Please respond to the clarification below the line at the bottom and electronically sign. The CDI & [facility] Coding staff will review the response and follow-up if needed. Please note: Queries are made part of the Legal Health Record. If you have any questions, please contact the author of this message via ITS. Doctor: Billy Saul Your patient has the documented diagnosis of unspecified diastolic CHF 04/24, HP. Additional information regarding the, acuity of CHF is requested. History/Risk Factors: 84 year old female presents to the ED with shortness of breath on going for a month. Medical history: CHF, Lung CA and HTN. 04/24 HP Clinical Indicators: VS/Pulse OX, 04/22 B/P 145/70; HR 86; Temp 97.5F Oral; RR 24; SpO2 100% 3L nc BNP: 04/22 294 AND 04/23 307 Echocardiogram Results: 10/11/23: EF 55-60% Technically difficult study. Definity ECHO contrast used for improved visualization of the endocardial borders (inadequate visualization of two or more contiguous segments). Normal left ventricle size and systolic function. Very limited Doppler study with trace mitral and tricuspid regurgitation Chest X Ray: 04/22 Cardiomegaly with pulmonary venous congestion left basilar opacity. CTA Chest 04/23: LeftPleural Effusionpocket size: 11.9 - 5.1cm pocket prior to lung tissue Left skin surface to fluid distance: 4.2cm Treatment: 04/23 Lasix 40mg IV Q12H, 04/23 Toprol Xl 25mg PO Daily In your professional opinion, can you please clarify the [acuity and type] of CHF if known? [ ] Acute on Chronic Diastolic Heart Failure (preserved EF) [ ] Other, please specify [ ] Unable to determine Documented 04/[address] Saul.Acute on chronic diastolic heart failure (Template Last Revised: August 2020) MUNIR
--- NOTE | 2024-04-25 02:52 | PN ---
PROGRESS NOTE SUBJECTIVE: She has a large pleural effusion on the left side of her lung. We are going to get a paracentesis set up. May have to wait a few days due to Plavix being discontinued. Wait for Pulmonary input. She was breathing better when she came in. OBJECTIVE: CARDIOVASCULAR: S1, S2. LUNGS: Scattered rhonchi and wheeze. Lungs transmitted upper sounds. HEMATOLOGY: Negative Homans. PSYCH: Fair mood and affect. VITAL SIGNS: Temp 97.8, pulse 80s, respiratory rate 16 to 18, blood pressure 130/80, O2 of 97% on 3 L. OPHTHALMOLOGIC: Pupils equal, round, reactive. LABORATORY DATA: Hemoglobin is 9.8, white count 7.5 on admission. D-dimer is 0.87. CT of the chest shows pleural effusion, possible pneumonia. Await pulmonary input. Negative BNP. Wait for thoracentesis. Wait for Pulmonary consult. Hold Plavix for now and continue breathing treatments, steroids, updrafts. Prognosis guarded. MMODL / IJN: [id number] /
[2024-04-25 08:25] LABS: Basophils % (A) 0 %; Eosinophils % (A) 0 %; HCT 27.5 % (34.0-46.0); HGB 8.9 gm/dL (11.4-16.0); Hypochromasia Slight; Lymphocytes # (A) 0.8 k/uL (1.0-4.8); Lymphocytes % (A) 6 %; MCH 29.3 pg (25.0-35.0); MCHC 32.5 g/dL (31.0-37.0); MCV 90.4 fL (80.0-100.0); Mean Platelet Volume 8.8; Monocytes # (A) 0.4 k/uL (0-1.0); Monocytes % (A) 3 %; Neutrophils # (A) 12.7 k/uL (1.3-7.7); Neutrophils % (A) 91 %; Platelet Count 246 k/uL (150-450); RBC 3.05 m/uL (3.80-5.40); RDW 15.7 % (11.5-15.5)
[2024-04-25 08:26] LABS: African American GFR (CKD) 42 (>60 ml/min/1.73 sqM); Blood Urea Nitrogen 52 mg/dL (7-17); Calcium 9.4 mg/dL (8.4-10.2); Chloride 97 mmol/L (98-107); Glucose 339 mg/dL (74-99); Non-African American GFR(CKD) 36 (>60 ml/min/1.73 sqM); Potassium 4.7 mmol/L (3.5-5.1); Sodium 139 mmol/L (137-145)
[2024-04-25 08:32] LABS: Anion Gap 8 mmol/L
[2024-04-25 08:44] LABS: Carbon Dioxide 34 mmol/L (22-30)
--- NOTE | 2024-04-25 11:32 | P.CNPUL ---
History of Present Illness Consult date: 04/25/24 Reason for consult: dyspnea, hypoxemia, pleural effusion Chief complaint: Shortness of breath History of present illness: Patient came into hospital with increasing shortness of breath, does have a history of lung cancer patient has been on oxygen at home which has been escalated also has a history of COPD, generalized anxiety disorder, dyslipidemia, hypertension hypertensive cardiovascular disease, coronary artery disease, history of pneumonia, patient has a history of adenocarcinoma of the right upper lobe and recurrent right-sided pleural effusion requiring multiple thoracentesis patient has squamous cell carcinoma of the left lower lobe as well she is status post right upper lobectomy with lymph node dissection. Her admitted chest x-ray significant for cardiomegaly interstitial edema left lower lobe infiltrate and effusion. CT scan of the chest negative for pulmonary embolism large left-sided pleural effusion with compressive atelectasis of left lung volume loss on the right side. Ultrasound of the chest performed left- sided pleural effusion pocket 11.9 cm, also noted patient has a pericardial effusion as well not reported in the CT scan report Review of Systems All systems: negative Past Medical History Past Medical History: Asthma, Coronary Artery Disease (CAD), Cancer, COPD, Hyperlipidemia, Hypertension, Osteoarthritis (OA), Pneumonia, Respiratory Disorder Additional Past Medical History / Comment(s): Adenocarcinoma of the right upper lobe, history of recurrent right-sided pleural effusion requiring multiple thoracentesis, coronary artery disease, chronic hypoxic respiratory failure maintained on O2, 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 History of Any Multi-Drug Resistant Organisms: None Reported Past Surgical History: Appendectomy, Bowel Resection, Ear Surgery, Heart Catheterization With Stent, Hernia Repair, Hysterectomy, Tonsillectomy Additional Past Surgical History / Comment(s): Colon/bowel surgery done in her 30's-21 inches removed, bilateral cataracts removed, bilateral laser eye surgery, hemorroidectomy, hiatal hernia, robotic rt upper lobectomy w/mediastinal lymph node dissection, 1 cardiac stent Past Anesthesia/Blood Transfusion Reactions: No Reported Reaction Additional Past Anesthesia/Blood Transfusion Reaction / Comment(s): no hx blood transfusion Date of Last Stent Placement:: 01/01/18 Past Psychological History: No Psychological Hx Reported Additional Psychological History / Comment(s): . Smoking Status: Former smoker Past Alcohol Use History: None Reported Additional Past Alcohol Use History / Comment(s): quit smoking 1/2/18 smoked since age 20 1 1/2ppd Past Drug Use History: None Reported - Past Family History Father Family Medical History: CVA/TIA, Myocardial Infarction (CT) Mother Family Medical History: Cancer Additional Family Medical History / Comment(s): bowel cancer Medications and Allergies Home Medications Medication Instructions Recorded Confirmed Type ALPRAZolam [Xanax] 0.5 mg PO TID PRN 03/19/14 04/22/24 History Montelukast [Singulair] 10 mg PO DAILY 09/15/17 04/22/24 History Famotidine [Pepcid] 40 mg PO BID 04/27/21 04/22/24 History Furosemide [Lasix] 40 mg PO DAILY 04/27/21 04/22/24 History Budesonide [Pulmicort] 0.5 mg INHALATION RT-BID 05/24/23 04/22/24 History Ipratropium-Albuterol Nebulize 3 ml INHALATION RT-QID 05/24/23 04/22/24 History [Duoneb 0.5 mg-3 mg/3 ml Soln] Loratadine [Claritin] 10 mg PO DAILY 05/24/23 04/22/24 History Potassium Chloride ER [K-Dur 20] 20 meq PO DAILY 05/24/23 04/22/24 History Atorvastatin [Lipitor] 40 mg PO DAILY 90 Days #90 tab 10/13/23 04/22/24 Rx Metoprolol Succinate (ER) [Toprol 25 mg PO DAILY 90 Days #90 tab 10/13/23 04/22/24 Rx XL] Clopidogrel [Plavix] 75 mg PO DAILY 04/22/24 04/22/24 History HYDROcodone/APAP 10-325MG [[place] 1 tab PO TID PRN 04/22/24 04/22/24 History 10-325] Allergies Allergy/AdvReac Type Severity Reaction Status Date / Time Penicillins Allergy Rash/Hives Verified 04/22/24 14:12 Physical Exam Vitals: Vital Signs Temp Pulse Pulse Resp BP Pulse Ox 04/25/24 09:21 80 04/25/24 09:07 82 96 04/25/24 07:03 98.0 F 91 17 141/79 95 04/25/24 01:12 98.2 F 89 16 144/83 96 04/24/24 21:12 83 04/24/24 20:55 82 10/09/24 19:00 97.7 F 81 20 140/73 98 04/24/24 16:10 84 04/24/24 16:01 80 04/24/24 14:00 97.6 F 83 19 115/64 94 L 04/24/24 11:53 84 04/24/24 11:43 86 Intake and Output 04/24/24 04/25/24 04/25/24 22:59 06:59 14:59 Other: Voiding Method Bedside Commode # Voids 6 3 - Constitutional General appearance: disheveled, morbidly obese - EENT Eyes: EOMI, PERRLA ENT: normal oropharynx Ears: bilateral: normal - Neck Neck: normal ROM Carotids: bilateral: upstroke normal Thyroid: bilateral: normal size - Respiratory Respiratory: left: diminished, dullness, bilateral: rales, rhonchi, wheezing - Cardiovascular Rhythm: regular Heart sounds: normal: S1, S2 - Gastrointestinal General gastrointestinal: normal bowel sounds, soft - Neurologic Neurologic: CNII-XII intact - Musculoskeletal Musculoskeletal: gait normal, generalized weakness, strength equal bilaterally - Psychiatric Psychiatric: A&O x's 3, appropriate affect, intact judgment & insight Results - Laboratory Findings CBC and BMP: 04/25/24 07:59 04/25/24 07:59 PT/INR, D-dimer PT 10.5 sec (10.0-12.5) 04/22/24 14:12 INR 0.9 (<1.2) 04/22/24 14:12 D-Dimer 2.87 mg/L FEU (<0.60) H 04/22/24 14:12 Abnormal lab findings: Abnormal Labs 04/22/24 04/22/24 04/22/24 14:12 14:12 14:12 WBC RBC 3.42 L Hgb 9.8 L Hct 31.2 L RDW Neutrophils # Lymphocytes # APTT 20.6 L D-Dimer 2.87 H Chloride Carbon Dioxide 38 H BUN 25 H Creatinine Glucose 235 H 04/25/24 04/25/24 07:59 07:59 WBC 14.0 H RBC 3.05 L Hgb 8.9 L Hct 27.5 L RDW 15.7 H Neutrophils # 12.7 H Lymphocytes # 0.8 L APTT D-Dimer Chloride 97 L Carbon Dioxide 34 H BUN 52 H Creatinine 1.37 H Glucose 339 H - Diagnostic Findings Chest x-ray: report reviewed, image reviewed CT scan - chest: report reviewed, image reviewed (Ultrasound images and report reviewed as well) Assessment and Plan Assessment: History of squamous cell carcinoma and adenocarcinoma with s/p resection of right upper lobe and volume loss Left-sided pleural effusion moderate to large Left-sided compressive atelectasis COPD with acute exacerbation Pericardial effusion Plan: Agree with holding Plavix and anticoagulants Patient need left-sided thoracentesis for diagnostic and therapeutic support Order echocardiogram for pericardial effusion Continue bronchodilators steroids Time with Patient: Greater than 30
[2024-04-25] MEDS: INSULIN ASPART (NovoLOG) 100 UNIT/ML VIAL SQ SCH (12:05)
[2024-04-25] MEDS: LACTULOSE 20 GM/30 ML CUP PO SCH (16:12)
[2024-04-25 16:35] LABS: Glucose,Whole Blood 362 mg/dL (70-110)
[2024-04-25 20:25] LABS: Glucose,Whole Blood 295 mg/dL (70-110)
[2024-04-25 21:37] LABS: Glucose,Whole Blood 310 mg/dL (70-110)
[2024-04-26 06:22] LABS: Glucose,Whole Blood 223 mg/dL (70-110)
--- NOTE | 2024-04-26 07:38 | US ---
EXAMINATION TYPE: US chest DATE OF EXAM: 04/26/2024 COMPARISON: US CLINICAL INDICATION: Female, 84 years old with history of L thoracentesis marking; Pleural effusion left side TECHNIQUE: Grayscale imaging of the chest. Targeted ultrasound of the posterior lower left hemithora x FINDINGS: EXAM MEASUREMENTS: Left Pleural Effusion pocket size: 6.9 cm Left skin surface to fluid distance: 4.9 cm Left side marked for possible thoracentesis outside the dept. Pulmonologists are able to review the images in the patient?s EMR. IMPRESSIONS: As above [facility], , 04/26/2024 7:36 AM
--- NOTE | 2024-04-26 08:29 | PN ---
PROGRESS NOTE SUBJECTIVE: An 84-year-old white female scheduled to get a thoracentesis tomorrow. Pulmonary saw her. She has a large pleural effusion on the left side, affecting her breathing. She is supposed to get a thoracentesis tomorrow. She is saturating 99% on 3 L. OBJECTIVE: VITAL SIGNS: Blood pressure 143/82, temp 97.7, pulse 82. LUNGS: Scattered wheeze and rhonchi. Transmitted upper sounds. CARDIOVASCULAR: S1, S2. ABDOMEN: Soft, nontender. EXTREMITIES: 2 to 3+ edema. ASSESSMENT: Acute hypoxemic respiratory failure, history of lung cancer, squamous cell lung cancer, severe chronic obstructive pulmonary disease, on oxygen, acute on chronic diastolic heart failure. Continue to wait for thoracentesis tomorrow. Monitor electrolytes. Continue home medications. Continue oxygen and breathing treatments, steroids. Wait for thoracentesis. Prognosis guarded at this point. MMODL / IJN: [id number] /
[2024-04-26 08:39] LABS: Basophils # (A) 0.02 X 10*3/uL (0.00-0.10); Basophils % (A) 0.2 %; Eosinophils # (A) 0 X 10*3/uL (0.04-0.35); Eosinophils % (A) 0 %; HCT 28.7 % (37.2-46.3); HGB 8.9 g/dL (12.0-15.0); Lymphocytes # (A) 0.96 X 10*3/uL (0.90-5.00); Lymphocytes % (A) 7.3 %; MCH 28.8 pg (27.0-32.0); MCV 92.9 FL (80.0-97.0); Mean Platelet Volume 11.6 FL (9.5-12.2); Monocytes # (A) 0.69 X 10*3/uL (0.20-1.00); Monocytes % (A) 5.3 %; NRBC Per 100 WBC 0.02 X 10*3/uL (0.00-0.01); Neutrophils # (A) 11.28 X 10*3/uL (1.80-7.70); Platelet Count 243 X 10*3/uL (140-440); RBC 3.09 X 10*6/uL (4.10-5.20); RDW 15.6 % (11.5-14.5); WBC 13.11 X 10*3/uL (4.50-10.00)
[2024-04-26 08:45] LABS: ALT 17 U/L (8-44); AST 19 U/L (13-35); Albumin 3.7 g/dL (3.8-4.9); Albumin/Globulin Ratio 1.61 Ratio (1.60-3.17); Alkaline Phosphatase 102 U/L (41-126); BUN/Creat Ratio 31.47 Ratio (12.00-20.00); Blood Urea Nitrogen 53.5 mg/dL (9.0-27.0); Calcium 9.4 mg/dL (8.7-10.3); Carbon Dioxide 37.4 mmol/L (21.6-31.8); Chloride 96 mmol/L (96-109); Globulin 2.3 g/dL (1.6-3.3); Glucose 195 mg/dL (70-110); Potassium 4.7 mmol/L (3.5-5.5); Sodium 144 mmol/L (135-145); Total Bilirubin 0.4 mg/dL (0.3-1.2)
[2024-04-26 11:47] LABS: Glucose,Whole Blood 288 mg/dL (70-110)
--- NOTE | 2024-04-26 14:14 | P.PN ---
Subjective Progress Note Date: 04/26/24 Principal diagnosis: History of squamous cell carcinoma and adenocarcinoma with s/p resection of right upper lobe and volume loss Left-sided pleural effusion moderate to large Left-sided compressive atelectasis COPD with acute exacerbation Pericardial effusion April 26, 2024, patient seen eval examined during rounds care plan discussed with nurse at bedside at length. Patient slightly upset as thoracentesis is not being performed, explained patient at length due to being on antithrombotic risk of bleeding also thoracic wall size another issue. [place] ultrasound reports and results reviewed about 7 cm left pleural effusion seen, his skin surface to fluid distance was almost 5 cm, Plavix have been on hold, IR planning to do left thoracentesis on Monday. Labs reviewed white cell count 13 hemoglobin hematocrit 8.9/28, platelet count are 1942, sodium 144 potassium 4.7 BUN/creatinine 53/1.7 Patient came into hospital with increasing shortness of breath, does have a history of lung cancer patient has been on oxygen at home which has been escalated also has a history of COPD, generalized anxiety disorder, dyslipidemia, hypertension hypertensive cardiovascular disease, coronary artery disease, history of pneumonia, patient has a history of adenocarcinoma of the right upper lobe and recurrent right-sided pleural effusion requiring multiple thoracentesis patient has squamous cell carcinoma of the left lower lobe as well she is status post right upper lobectomy with lymph node dissection. Her admitted chest x-ray significant for cardiomegaly interstitial edema left lower lobe infiltrate and effusion. CT scan of the chest negative for pulmonary embolism large left-sided pleural effusion with compressive atelectasis of left lung volume loss on the right side. Ultrasound of the chest performed left- sided pleural effusion pocket 11.9 cm, also noted patient has a pericardial effusion as well not reported in the CT scan report Objective - Vital Signs Vital signs: Vital Signs Temp 97.4 F L 04/26/24 06:58 Pulse 80 04/26/24 12:18 Resp 20 04/26/24 10:06 BP 147/78 04/26/24 06:58 Pulse Ox 96 04/26/24 09:00 FiO2 Intake & Output 04/25/24 04/26/24 04/26/24 18:59 06:59 18:59 Other: Voiding Method Bedside Commode # Voids 4 4 1 # Bowel Movements 3 - Exam - Constitutional General appearance: disheveled, morbidly obese - EENT Eyes: EOMI, PERRLA ENT: normal oropharynx Ears: bilateral: normal - Neck Neck: normal ROM Carotids: bilateral: upstroke normal Thyroid: bilateral: normal size - Respiratory Respiratory: left: diminished, dullness, bilateral: rales, rhonchi, wheezing - Cardiovascular Rhythm: regular Heart sounds: normal: S1, S2 - Gastrointestinal General gastrointestinal: normal bowel sounds, soft - Neurologic Neurologic: CNII-XII intact - Musculoskeletal Musculoskeletal: gait normal, generalized weakness, strength equal bilaterally - Psychiatric Psychiatric: A&O x's 3, appropriate affect, intact judgment & insight - Constitutional Constitutional Comment(s): - Constitutional General appearance: disheveled, morbidly obese - EENT Eyes: EOMI, PERRLA ENT: normal oropharynx Ears: bilateral: normal - Neck Neck: normal ROM Carotids: bilateral: upstroke normal Thyroid: bilateral: normal size - Respiratory Respiratory: left: diminished, dullness, bilateral: rales, rhonchi, wheezing - Cardiovascular Rhythm: regular Heart sounds: normal: S1, S2 - Gastrointestinal General gastrointestinal: normal bowel sounds, soft - Neurologic Neurologic: CNII-XII intact - Musculoskeletal Musculoskeletal: gait normal, generalized weakness, strength equal bilaterally - Psychiatric Psychiatric: A&O x's 3, appropriate affect, intact judgment & insight - Labs CBC & Chem 7: 04/26/24 03:49 04/26/24 03:49 Labs: Abnormal Lab Results - Last 24 Hours (Table) 04/25/24 04/25/24 04/25/24 Range/Units 11:42 16:33 20:24 WBC (4.50-10.00) X 10*3/uL RBC (4.10-5.20) X 10*6/uL Hgb (12.0-15.0) g/dL Hct (37.2-46.3) % MCHC (32.0-37.0) g/dL RDW (11.5-14.5) % Immature Gran # (0.00-0.04) X 10*3/uL Neutrophils # (1.80-7.70) X 10*3/uL Eosinophils # (0.04-0.35) X 10*3/uL NRBC/100 WBC Diff (0.00-0.01) X 10*3/uL Carbon Dioxide (21.6-31.8) mmol/L BUN (9.0-27.0) mg/dL Creatinine (0.6-1.5) mg/dL Est GFR (CKD-EPI) (>=60) BUN/Creatinine Ratio (12.00-20.00) Ratio Glucose (70-110) mg/dL POC Glucose (mg/dL) 310 H 362 H 295 H (70-110) mg/dL Total Protein (6.2-8.2) g/dL Albumin (3.8-4.9) g/dL 04/26/24 04/26/24 04/26/24 Range/Units 03:49 03:49 06:20 WBC 13.11 H (4.50-10.00) X 10*3/uL RBC 3.09 L (4.10-5.20) X 10*6/uL Hgb 8.9 L (12.0-15.0) g/dL Hct 28.7 L (37.2-46.3) % MCHC 31.0 L (32.0-37.0) g/dL RDW 15.6 H (11.5-14.5) % Immature Gran # 0.16 H (0.00-0.04) X 10*3/uL Neutrophils # 11.28 H (1.80-7.70) X 10*3/uL Eosinophils # 0 L (0.04-0.35) X 10*3/uL NRBC/100 WBC Diff 0.02 H (0.00-0.01) X 10*3/uL Carbon Dioxide 37.4 H (21.6-31.8) mmol/L BUN 53.5 H (9.0-27.0) mg/dL Creatinine 1.7 H (0.6-1.5) mg/dL Est GFR (CKD-EPI) 30 L (>=60) BUN/Creatinine Ratio 31.47 H (12.00-20.00) Ratio Glucose 195 H (70-110) mg/dL POC Glucose (mg/dL) 223 H (70-110) mg/dL Total Protein 6.0 L (6.2-8.2) g/dL Albumin 3.7 L (3.8-4.9) g/dL 04/26/24 Range/Units 11:46 WBC (4.50-10.00) X 10*3/uL RBC (4.10-5.20) X 10*6/uL Hgb (12.0-15.0) g/dL Hct (37.2-46.3) % MCHC (32.0-37.0) g/dL RDW (11.5-14.5) % Immature Gran # (0.00-0.04) X 10*3/uL Neutrophils # (1.80-7.70) X 10*3/uL Eosinophils # (0.04-0.35) X 10*3/uL NRBC/100 WBC Diff (0.00-0.01) X 10*3/uL Carbon Dioxide (21.6-31.8) mmol/L BUN (9.0-27.0) mg/dL Creatinine (0.6-1.5) mg/dL Est GFR (CKD-EPI) (>=60) BUN/Creatinine Ratio (12.00-20.00) Ratio Glucose (70-110) mg/dL POC Glucose (mg/dL) 288 H (70-110) mg/dL Total Protein (6.2-8.2) g/dL Albumin (3.8-4.9) g/dL Assessment and Plan Assessment: History of squamous cell carcinoma and adenocarcinoma with s/p resection of right upper lobe and volume loss Left-sided pleural effusion moderate to large Left-sided compressive atelectasis COPD with acute exacerbation Pericardial effusion Reviewed ultrasound finding skin to fluid thickness is 5 cm which is much longer than the needles that we have for regular thoracentesis, would rather get it done from IR Plan: IR to do thoracentesis early next week Agree with holding Plavix and anticoagulants Patient need left-sided thoracentesis for diagnostic and therapeutic support Order echocardiogram for pericardial effusion, echocardiogram remains pending Continue bronchodilators steroids
[2024-04-26 16:27] LABS: Glucose,Whole Blood 309 mg/dL (70-110)
--- NOTE | 2024-04-26 17:51 | CA ---
Transthoracic Echo Report Name: Jana Arellano Age: 84 Gender: F : 1940 Exam Date: 04/26/2024 10:13 Exam Location: [facility] Ht (in): 62 Wt (lb): 190 Ordering Physician: Pablo Yang MD Attending/Referring Phys: Pumper Gager Zoë Walton RDCS Procedure CPT: Indications: pericardial effusion Cardiac Hx: Technical Quality: Fair Contrast 1: Total Dose (mL): Contrast 2: Total Dose (mL): MEASUREMENTS (Male / Female) Normal Values 2D ECHO LV Diastolic Diameter PLAX 4.0 cm 4.2 - 5.9 / 3.9 - 5.3 cm LV Systolic Diameter PLAX 2.6 cm IVS Diastolic Thickness 1.4 cm 0.6 - 1.0 / 0.6 - 0.9 cm LVPW Diastolic Thickness 1.2 cm 0.6 - 1.0 / 0.6 - 0.9 cm LV Relative Wall Thickness 0.6 DOPPLER AV Peak Velocity 100.0 cm/s AV Peak Gradient 4.0 mmHg AV Mean Velocity 68.8 cm/s AV Mean Gradient 2.1 mmHg AV Velocity Time Integral 22.5 cm LVOT Peak Velocity 72.0 cm/s LVOT Peak Gradient 2.1 mmHg LVOT Velocity Time Integral 14.7 cm MV Area PHT 3.9 cm??? Mitral E Point Velocity 65.2 cm/s Mitral A Point Velocity 94.2 cm/s Mitral E to A Ratio 0.7 MV Deceleration Time 194.3 ms MV E' Velocity 5.1 cm/s Mitral E to MV E' Ratio 12.8 FINDINGS Left Ventricle Moderately increased left ventricular wall thickness. Left ventricular cavity size normal. Normal left ventricular systolic function with no obvious regional wall motion abnormalities. Left ventricular ejection fraction is estimated at 55 to 60 %. Right Ventricle Right ventricle not well visualized. Right Atrium Normal right atrial size. Left Atrium Left atrium not well visualized. Mitral Valve Structurally normal mitral valve. Trace mitral regurgitation. Aortic Valve No aortic valve stenosis or regurgitation.aortic valve not well visualized. Tricuspid Valve Tricuspid valve not well visualized. Pulmonic Valve Pulmonic valve not well visualized. Pericardium Mild to moderate pericardial effusion. No tamponade physiology noted. Aorta Normal size aortic root and proximal ascending aorta. CONCLUSIONS 1. Normal left ventricular size and systolic function 2. Limited Doppler study 3. Mild to moderate pericardial effusion with no evidence of temporal not physiology Technically difficult study. Previewed by: Dr. Alexsander Durant MD (Electronically Signed) Final Date: 26 April 2024 17:50
[2024-04-26 19:48] LABS: Glucose,Whole Blood 356 mg/dL (70-110)
[2024-04-27 06:48] LABS: Glucose,Whole Blood 290 mg/dL (70-110)
[2024-04-27 11:23] LABS: Glucose,Whole Blood 294 mg/dL (70-110)
--- NOTE | 2024-04-27 11:50 | PN ---
PROGRESS NOTE SUBJECTIVE: An 84-year-old white female admitted to the hospital for pleural effusion, acute on chronic respiratory distress. Waiting for thoracentesis. Sugars are 200s to 300s. States her breathing is barely better than when she came in. Having a hard time breathing. She is at 92% on 3 L. OBJECTIVE: VITAL SIGNS: Blood pressure 144/79, temp 98.1, pulse 80s to 90s, respiratory rate 19 to 22. CARDIOVASCULAR: S1, S2. LUNGS: Transmitted upper sounds. Scattered wheeze. GI: Soft, nontender. HEMATOLOGY: Negative Homans. PSYCH: Fair mood and affect. NEUROLOGIC: Alert and oriented x3. OPHTHALMOLOGIC: Pupils equal, round, reactive. EXTREMITIES: She has 2 to 3+ edema. Chest ultrasound and echo has been done. Waiting for Dr. Yang to do the thoracentesis. BUN 63, creatinine 1.7, hemoglobin is 8.9, white count 13.1. 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 Ultrasounds of the skin showed fluid thickness is 5 cm, which is much longer than the needles that we have for regular thoracentesis. I would rather get it done by IR early next week. Plavix, anticoagulants. Left-sided thoracentesis for diagnostic therapeutic support. Echocardiogram is pending. Continue steroids, bronchodilators. MMODL / IJN: [id number] /
[2024-04-27] MEDS: ENOXAPARIN 40 MG/0.4 ML SYRINGE SQ SCH (12:35)
[2024-04-27 16:24] LABS: Glucose,Whole Blood 231 mg/dL (70-110)
[2024-04-27 21:02] LABS: Glucose,Whole Blood 412 mg/dL (70-110)
[2024-04-28 06:52] LABS: Glucose,Whole Blood 267 mg/dL (70-110)
[2024-04-28 11:28] LABS: Glucose,Whole Blood 318 mg/dL (70-110)
--- NOTE | 2024-04-28 13:32 | P.CRDCN ---
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 On admission her chest x-ray showed concerns of left pleural effusion. CT chest showed large left-sided pleural effusion and small pericardial effusion. Follow-up echocardiogram showed small to moderate pericardial effusion with no concerns of tamponade physiology. ECG shows sinus rhythm with no active signs of ischemia on resting ECG Telemetry shows sinus rhythm with intermittent PACs. Admission labs hemoglobin 8.9, BUN 57, creatinine 1.7, BNP 307, REVIEW OF SYSTEMS 14 point review of system is negative except what is mentioned above in HPI. PHYSICAL EXAMINATION Vital signs reviewed. Head: Normocephalic. Eyes: Sclerae nonicteric. Neck: Brisk carotid upstroke, mildly elevated JVD Lungs: Reduced air entry in left lower lung field. Mild crackles audible Heart: Regular rate and rhythm, S1-S2, no S3, no murmur or rub. Abdomen: Soft nontender, positive bowel sounds. Extremities: 1+ pitting edema bilateral lower extremity Neuro: Alert, oritented, no focal deficits. Detailed neuro exam was not performed. 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 She is on p.o. Lasix and IV Lasix at the same time. I will discontinue both and start Bumex 1 mg p.o. daily from tomorrow Because of her prior history of CAD we will start aspirin. Discontinue Plavix. Do not resume on discharge Because of the thickness of the skin to reach the pleural space is longer than the needle length, may consider thoracentesis by IR technique. Patient does not need pericardiocentesis at this time. Will continue to monitor Juan J Denson MD, FACC, RPVI Thank you for allowing [facility] to participate in this patient's care. Feel free to reach out in case of any followup questions. 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 History of Any Multi-Drug Resistant Organisms: None Reported Past Surgical History: Appendectomy, Bowel Resection, Ear Surgery, Heart Catheterization With Stent, Hernia Repair, Hysterectomy, Tonsillectomy Additional Past Surgical History / Comment(s): Colon/bowel surgery done in her 30's-21 inches removed, bilateral cataracts removed, bilateral laser eye surgery, hemorroidectomy, hiatal hernia, robotic rt upper lobectomy w/m ediastinal lymph node dissection, 1 cardiac stent Past Anesthesia/Blood Transfusion Reactions: No Reported Reaction Additional Past Anesthesia/Blood Transfusion Reaction / Comment(s): no hx blood transfusion Date of Last Stent Placement:: 01/01/18 Past Psychological History: No Psychological Hx Reported Additional Psychological History / Comment(s): . Smoking Status: Former smoker Past Alcohol Use History: None Reported Additional Past Alcohol Use History / Comment(s): quit smoking 07/18/17 smoked since age 20 1 1/2ppd Past Drug Use History: None Reported - Past Family History Father Family Medical History: CVA/TIA, Myocardial Infarction ([place]) Mother Family Medical History: Cancer Additional Family Medical History / Comment(s): bowel cancer Medications and Allergies Home Medications Medication Instructions Recorded Confirmed Type ALPRAZolam [Xanax] 0.5 mg PO TID PRN 03/19/14 04/22/24 History Montelukast [Singulair] 10 mg PO DAILY 09/15/17 04/22/24 History Famotidine [Pepcid] 40 mg PO BID 04/27/21 04/22/24 History Furosemide [Lasix] 40 mg PO DAILY 04/27/21 04/22/24 History Budesonide [Pulmicort] 0.5 mg INHALATION RT-BID 05/24/23 04/22/24 History Ipratropium-Albuterol Nebulize 3 ml INHALATION RT-QID 05/24/23 04/22/24 History [Duoneb 0.5 mg-3 mg/3 ml Soln] Loratadine [Claritin] 10 mg PO DAILY 05/24/23 04/22/24 History Potassium Chloride ER [K-Dur 20] 20 meq PO DAILY 05/24/23 04/22/24 History Atorvastatin [Lipitor] 40 mg PO DAILY 90 Days #90 tab 10/13/23 04/22/24 Rx Metoprolol Succinate (ER) [Toprol 25 mg PO DAILY 90 Days #90 tab 10/13/23 04/22/24 Rx XL] Clopidogrel [Plavix] 75 mg PO DAILY 04/22/24 04/22/24 History HYDROcodone/APAP 10-325MG [[place] 1 tab PO TID PRN 04/22/24 04/22/24 History 10-325] Allergies Allergy/AdvReac Type Severity Reaction Status Date / Time Penicillins Allergy Rash/Hives Verified 04/22/24 14:12 Physical Exam Vitals: Vital Signs Temp Pulse Pulse Resp BP Pulse Ox 04/28/24 11:37 83 04/28/24 11:26 80 04/28/24 08:26 84 04/28/24 08:10 85 95 04/28/24 08:00 19 04/28/24 07:08 97.5 F L 80 17 133/73 96 04/28/24 01:29 98.1 F 87 21 163/91 98 04/27/24 20:02 82 04/27/24 19:50 85 04/27/24 19:49 97.5 F L 87 21 152/82 97 04/27/24 15:54 90 04/27/24 15:47 92 Intake and Output 04/27/24 04/28/24 04/28/24 22:59 06:59 14:59 Output Total 350 450 Balance -350 -450 Output: Urine 350 450 Other: Voiding Method External Catheter External Catheter # Voids 1 1 # Bowel Movements 1 1 Weight 40.5 kg Results 04/26/24 03:49 04/26/24 03:49 Current Medications Generic Name Dose Route Start Last Admin Trade Name Freq PRN Reason Stop Dose Admin Hydrocodone Bitart/Acetaminophen 1 each 04/22/24 19:54 Hydrocodone/Apap 10-325mg 1 Each Tab PO TID PRN Pain Albuterol/Ipratropium 3 ml 04/22/24 20:00 04/28/24 11:26 Ipratropium-Albuterol 3 Ml Neb INHALATION 3 ml RT-QID SIDDHARTH Administration Albuterol/Ipratropium 3 ml 04/23/24 05:23 Ipratropium-Albuterol 3 Ml Neb INHALATION RT-Q2H PRN Shortness Of Breath Or Wheezing Alprazolam 0.5 mg 04/22/24 19:54 04/23/24 20:47 Alprazolam 0.5 Mg Tab PO 0.5 mg TID PRN Administration Anxiety Aspirin 81 mg 04/28/24 13:15 Aspirin 81 Mg PO DAILY [facility] Atorvastatin Calcium 40 mg 04/23/24 09:00 04/28/24 08:55 Atorvastatin 40 Mg Tab PO 40 mg DAILY SIDDHARTH Administration Budesonide 0.5 mg 04/22/24 20:00 04/28/24 08:09 Budesonide 0.5 Mg/2 Ml Nebu INHALATION 0.5 mg RT-BID SIDDHARTH Administration Bumetanide 1 mg 04/29/24 09:00 Bumetanide 1 Mg Tab PO DAILY [facility] Enoxaparin Sodium 40 mg 04/27/24 11:15 04/28/24 08:55 Enoxaparin 40 Mg/0.4 Ml Syringe SQ 40 mg DAILY SIDDHARTH Administration Insulin Aspart 0 unit 04/25/24 12:30 04/28/24 12:48 Insulin Aspart (Novolog) 100 Unit/Ml Vial SQ 13 unit ACHS SIDDHARTH Administration Protocol Lactulose 20 gm 04/25/24 16:00 04/28/24 10:38 Lactulose 20 Gm/30 Ml Cup PO Not Given TID SIDDHARTH Loratadine 10 mg 04/23/24 09:00 04/28/24 08:55 Loratadine 10 Mg Tab PO 10 mg DAILY SIDDHARTH Administration Methylprednisolone Sodium Succinate 40 mg 04/23/24 06:00 04/28/24 08:55 Methylprednisolone Sod Succi 40 Mg/Ml 1 Ml Vial IV 40 mg Q8HR SIDDHARTH Administration Metoprolol Succinate 25 mg 04/23/24 09:00 04/28/24 08:55 Metoprolol Succinate (Er) 25 Mg Tab.Er.24h PO 25 mg DAILY SIDDHARTH Administration Montelukast Sodium 10 mg 04/23/24 09:00 04/28/24 08:55 Montelukast 10 Mg Tab PO 10 mg DAILY SIDDHARTH Administration Naloxone HCl 0.2 mg 04/22/24 16:44 Naloxone 0.4 Mg/Ml 1 Ml Vial IV Q2M PRN Opioid Reversal Potassium Chloride 20 meq 04/23/24 09:00 04/28/24 08:55 Potassium Chloride Er 20 Meq Tab.Er PO 20 meq DAILY SIDDHARTH Administration Intake and Output 04/27/24 04/28/24 04/28/24 22:59 06:59 14:59 Output Total 350 450 Balance -350 -450 Output: Urine 350 450 Other: Voiding Method External Catheter External Catheter # Voids 1 1 # Bowel Movements 1 1 Weight 40.5 kg 04/26/24 03:49 04/26/24 03:49
[2024-04-28] MEDS: ASPIRIN 81 MG PO SCH (13:55)
[2024-04-28 16:38] LABS: Glucose,Whole Blood 239 mg/dL (70-110)
[2024-04-28 21:32] LABS: Glucose,Whole Blood 298 mg/dL (70-110)
--- NOTE | 2024-04-28 22:23 | PN ---
PROGRESS NOTE An 84-year-old white female, acute on chronic diastolic heart failure. MMODL / IJN: [id number] /
--- NOTE | 2024-04-28 22:46 | PN ---
PROGRESS NOTE SUBJECTIVE: An 84-year-old white female came in with pericardial effusion and severe lung effusion. She is scheduled for paracentesis in the morning. Pulmonary and Cardiology have also seen the patient. The patient supposedly will get Cardiology says small to moderate pericardial effusion. No signs of tamponade physiology. Coronary artery disease, status post PCI. She has 2 to 3+ edema on 3 L oxygen. She wheezes during inspiratory and expiratory. CARDIOVASCULAR: S1, S2. She is visibly short of breath. NECK: Mildly elevated JVD. IMPRESSION: She has hypertension, acute kidney injury, chronic kidney disease, chronic anemia, chronic obstructive pulmonary disease, moderate to large left-sided pleural effusion with a history of lung cancer, adenocarcinoma as well as squamous cell. Creatinine is trending up. We are going to stop her Lasix and give her some fluids. Plavix has been discontinued a week ago on this patient so she could get a paracentesis tomorrow. Pericardiocentesis will not be needed, but we have to do a thoracentesis tomorrow. Prognosis guarded. MMODL / IJN: [id number] /
[2024-04-29 06:35] LABS: Glucose,Whole Blood 256 mg/dL (70-110)
[2024-04-29 08:33] LABS: Basophils # (A) 0.03 X 10*3/uL (0.00-0.10); Basophils % (A) 0.2 %; Eosinophils # (A) 0 X 10*3/uL (0.04-0.35); Eosinophils % (A) 0 %; HCT 30.4 % (37.2-46.3); HGB 9.4 g/dL (12.0-15.0); Lymphocytes # (A) 0.66 X 10*3/uL (0.90-5.00); Lymphocytes % (A) 5.1 %; MCHC 30.9 g/dL (32.0-37.0); MCV 93.8 FL (80.0-97.0); Mean Platelet Volume 11.8 FL (9.5-12.2); Monocytes % (A) 3.1 %; NRBC Per 100 WBC 0.03 X 10*3/uL (0.00-0.01); Neutrophils # (A) 11.63 X 10*3/uL (1.80-7.70); Neutrophils % (A) 89.7 %; Platelet Count 227 X 10*3/uL (140-440); RBC 3.24 X 10*6/uL (4.10-5.20); RDW 15.5 % (11.5-14.5); WBC 12.96 X 10*3/uL (4.50-10.00)
[2024-04-29 08:50] LABS: ALT 23 U/L (8-44); AST 19 U/L (13-35); Albumin 3.5 g/dL (3.8-4.9); Albumin/Globulin Ratio 1.52 Ratio (1.60-3.17); Alkaline Phosphatase 88 U/L (41-126); BUN/Creat Ratio 45.73 Ratio (12.00-20.00); Blood Urea Nitrogen 68.6 mg/dL (9.0-27.0); Calcium 9.2 mg/dL (8.7-10.3); Carbon Dioxide 35.4 mmol/L (21.6-31.8); Chloride 95 mmol/L (96-109); Globulin 2.3 g/dL (1.6-3.3); Glucose 281 mg/dL (70-110); Potassium 4.6 mmol/L (3.5-5.5); Sodium 141 mmol/L (135-145); Total Bilirubin 0.5 mg/dL (0.3-1.2); Total Protein 5.8 g/dL (6.2-8.2)
[2024-04-29] MEDS: HYDROcodone/APAP 10-325MG 1 EACH TAB PO PRN (08:52)
[2024-04-29] MEDS: BUMETANIDE 1 MG TAB PO SCH (08:53)
[2024-04-29 09:05] VITALS: BMI 34.2
--- NOTE | 2024-04-29 10:57 | US ---
Ultrasound-guided therapeutic and diagnostic thoracentesis DATE OF EXAM: 04/29/2024 CLINICAL HISTORY: Left pleural effusion The procedure was discussed with the patient. The risks, complications, benefits, and alternatives we re discussed and any questions were answered. Informed consent was obtained. The patient was placed supine on the ultrasound table and prepped and draped in the usual sterile fas hion. All elements of maximal barrier and sterile technique were utilized. Under ultrasound guidance, access into the pleural space was obtained, via the thoracentesis catheter system and direct ultrasound guidance.Polo roximately 0.5 liters of serous fluid was removed. Sample sent to pathology for analysis. The patient was stable throughout the procedure and remained stable upon discharge from Department of Radiology. IMPRESSION: 1. Successful therapeutic and diagnostic thoracentesis under ultrasound guidance. [facility], , 04/29/2024 10:55 AM
--- NOTE | 2024-04-29 11:06 | XR ---
EXAMINATION TYPE: XR chest 1V portable DATE OF EXAM: 04/29/2024 10:44 AM CLINICAL INDICATION: Female, 84 years old with history of post left thoracentesis; [facility] COMPARISON: Chest radiographs from 04/22/2024 TECHNIQUE: XR chest 1V portable Frontal view of the chest. FINDINGS: Lungs/Pleura: Small left pleural effusion without evidence for pneumothorax. There is no evidence of right pleural effusion, focal consolidation, or pneumothorax. Pulmonary vascularity: Unremarkable. Heart/mediastinum: Cardiomediastinal silhouette is prominent in size. Musculoskeletal: No acute osseous pathology. IMPRESSION: Small left pleural effusion without evidence of pneumothorax, No acute cardiopulmonary disease/proces s. [facility], , 04/29/2024 11:04 AM
[2024-04-29 11:39] LABS: Glucose,Whole Blood 250 mg/dL (70-110)
--- NOTE | 2024-04-29 12:37 | P.PN ---
Subjective Progress Note Date: 04/29/24 HISTORY OF PRESENTING ILLNESS 74-year-old female with past medical history of CAD status post PCI, adenoca rcinoma and small cell lung cancer s/p resection, presents the hospital because of increased work of breathing along with shortness of breath. On admission her chest x-ray showed concerns of left pleural effusion. CT chest showed large left-sided pleural effusion and small pericardial effusion. Fo llow-up echocardiogram showed small to moderate pericardial effusion with no concerns of tamponade physiology. ECG shows sinus rhythm with no active signs of ischemia on resting ECG Telemetry shows sinus rhythm with intermittent PACs. Admission labs hemoglobin 8.9, BUN 57, creatinine 1.7, BNP 307, 04/29 Patient seen and examined. Blood pressure 134/72, heart rate in the 80s, pulse ox 99% on 3 L nasal cannula. Patient has been afebrile. Repeat blood work reveals Yesterday, patient was taken off IV and oral Lasix and placed on Bumex oral 1 mg daily starting this morning. Patient has a negative fluid balance, weights do not appear accurate. Interventional radiology is on consult for left thoracentesis which was done this morning with removal of a half a liter of serous fluid. Repeat chest x-ray revealed small left pleural effusion without evidence of pneumothorax. No acute cardiopulmonary disease process. Patient states that her breathing is better. She denies any chest pain or chest pressure. No cough. No lower extremity edema.. PHYSICAL EXAMINATION Vital signs reviewed. Head: Normocephalic. Eyes: Sclerae nonicteric. Neck: Brisk carotid upstroke, mildly elevated JVD Lungs: Reduced air entry in left lower lung field. Mild crackles audible Heart: Regular rate and rhythm, S1-S2, no S3, no murmur or rub. Abdomen: Soft nontender, positive bowel sounds. Extremities: 1+ pitting edema bilateral lower extremity Neuro: Alert, oritented, no focal deficits. Detailed neuro exam was not performed. 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 daily Because of her prior history of CAD we will start aspirin. Discontinue Plavix. Do not resume on discharge and has been removed from her discharge med list. Cardiology will sign off this case and follow on an as-needed basis. Please reconsult for any new concerns. Patient may follow-up in the office in 2-4 weeks for repeat echocardiogram. Nurse practitioner note has been reviewed, I agree with documented findings and plan of care. Patient was seen and examined. Objective - Vital Signs Vital signs: Vital Signs Temp 97.4 F L 04/29/24 06:39 Pulse 85 04/29/24 06:39 Resp 17 04/29/24 06:39 BP 134/72 04/29/24 06:39 Pulse Ox 99 04/29/24 06:39 FiO2 Intake & Output 04/28/24 04/29/24 04/29/24 18:59 06:59 18:59 Output Total 800 300 Balance -800 -300 Weight 85 kg Output: Urine 800 300 Other: Voiding Method External Catheter External Catheter # Voids 1 # Bowel Movements 1 - Labs CBC & Chem 7: 04/29/24 03:30 04/29/24 03:30 Labs: Abnormal Lab Results - Last 24 Hours (Table) 04/28/24 04/28/24 04/28/24 Range/Units 11:27 16:37 21:31 POC Glucose (mg/dL) 318 H 239 H 298 H (70-110) mg/dL 04/29/24 Range/Units 06:34 POC Glucose (mg/dL) 256 H (70-110) mg/dL
[2024-04-29 16:31] LABS: Glucose,Whole Blood 370 mg/dL (70-110)
--- NOTE | 2024-04-29 19:24 | P.PN ---
Subjective Progress Note Date: 04/29/24 Principal diagnosis: History of squamous cell carcinoma and adenocarcinoma with s/p resection of right upper lobe and volume loss Left-sided pleural effusion moderate to large status postthoracentesis 500 cc of fluid removed on April 29 Left-sided compressive atelectasis COPD with acute exacerbation Pericardial effusion April 29, 2024, patient seen eval examined during rounds labs reviewed medications and care plan discussed, patient remains afebrile, hemodynamic stat us stable oxygen saturation 97% on 3 L, patient underwent ultrasound-guided thoracentesis only 500 cc obtained, postprocedure chest x-ray negative for pneumothorax pleural fluid cytology is pending April 26, 2024, patient seen eval examined during rounds care plan discussed with nurse at bedside at length. Patient slightly upset as thoracentesis is not being performed, explained patient at length due to being on antithrombotic risk of bleeding also thoracic wall size another issue. [place] ultrasound reports and results reviewed about 7 cm left pleural effusion seen, his skin surface to flui d distance was almost 5 cm, Plavix have been on hold, IR planning to do left thoracentesis on Monday. Labs reviewed white cell count 13 hemoglobin hematocrit 8.9/28, platelet count are 1942, sodium 144 potassium 4.7 BUN/creatinine 53/1.7 Patient came into hospital with increasing shortness of breath, does have a history of lung cancer patient has been on oxygen at home which has been escalat ed also has a history of COPD, generalized anxiety disorder, dyslipidemia, hypertension hypertensive cardiovascular disease, coronary artery disease, history of pneumonia, patient has a history of adenocarcinoma of the right upper lobe and recurrent right-sided pleural effusion requiring multiple thoracentesis patient has squamous cell carcinoma of the left lower lobe as well she is status post right upper lobectomy with lymph node dissection. Her admitted chest x-ray significant for cardiomegaly interstitial edema left lower lobe infiltrate and effusion. CT scan of the chest negative for pulmonary embolism large left-sided pleural effusion with compressive atelectasis of left lung volume loss on the right side. Ultrasound of the chest performed left-sided pleural effusion pock et 11.9 cm, also noted patient has a pericardial effusion as well not reported in the CT scan report Objective - Vital Signs Vital signs: Vital Signs Temp 97.7 F 04/29/24 13:22 Pulse 88 04/29/24 15:39 Resp 18 04/29/24 15:39 BP 142/78 04/29/24 13:22 Pulse Ox 97 04/29/24 13:22 FiO2 Intake & Output 04/29/24 04/29/24 04/30/24 06:59 18:59 06:59 Output Total 300 Balance -300 Weight 85 kg 85 kg Output: Urine 300 Other: Voiding Method External Catheter # Voids 1 # Bowel Movements 1 - Exam - Constitutional General appearance: disheveled, morbidly obese - EENT Eyes: EOMI, PERRLA ENT: normal oropharynx Ears: bilateral: normal - Neck Neck: normal ROM Carotids: bilateral: upstroke normal Thyroid: bilateral: normal size - Respiratory Respiratory: left: diminished, dullness, bilateral: rales, rhonchi, wheezing - Cardiovascular Rhythm: regular Heart sounds: normal: S1, S2 - Gastrointestinal General gastrointestinal: normal bowel sounds, soft - Neurologic Neurologic: CNII-XII intact - Musculoskeletal Musculoskeletal: gait normal, generalized weakness, strength equal bilaterally - Psychiatric Psychiatric: A&O x's 3, appropriate affect, intact judgment & insight - Labs CBC & Chem 7: 04/29/24 03:30 04/29/24 03:30 Labs: Abnormal Lab Results - Last 24 Hours (Table) 04/28/24 04/29/24 04/29/24 Range/Units 21:31 03:30 03:30 WBC 12.96 H (4.50-10.00) X 10*3/uL RBC 3.24 L (4.10-5.20) X 10*6/uL Hgb 9.4 L (12.0-15.0) g/dL Hct 30.4 L (37.2-46.3) % MCHC 30.9 L (32.0-37.0) g/dL RDW 15.5 H (11.5-14.5) % Immature Gran # 0.24 H (0.00-0.04) X 10*3/uL Neutrophils # 11.63 H (1.80-7.70) X 10*3/uL Lymphocytes # 0.66 L (0.90-5.00) X 10*3/uL Eosinophils # 0 L (0.04-0.35) X 10*3/uL NRBC/100 WBC Diff 0.03 H (0.00-0.01) X 10*3/uL Chloride 95 L (96-109) mmol/L Carbon Dioxide 35.4 H (21.6-31.8) mmol/L BUN 68.6 H (9.0-27.0) mg/dL Est GFR (CKD-EPI) 35 L (>=60) BUN/Creatinine Ratio 45.73 H (12.00-20.00) Ratio Glucose 281 H (70-110) mg/dL POC Glucose (mg/dL) 298 H (70-110) mg/dL Total Protein 5.8 L (6.2-8.2) g/dL Albumin 3.5 L (3.8-4.9) g/dL Albumin/Globulin Ratio 1.52 L (1.60-3.17) Ratio 04/29/24 04/29/24 04/29/24 Range/Units 06:34 11:37 16:29 WBC (4.50-10.00) X 10*3/uL RBC (4.10-5.20) X 10*6/uL Hgb (12.0-15.0) g/dL Hct (37.2-46.3) % MCHC (32.0-37.0) g/dL RDW (11.5-14.5) % Immature Gran # (0.00-0.04) X 10*3/uL Neutrophils # (1.80-7.70) X 10*3/uL Lymphocytes # (0.90-5.00) X 10*3/uL Eosinophils # (0.04-0.35) X 10*3/uL NRBC/100 WBC Diff (0.00-0.01) X 10*3/uL Chloride (96-109) mmol/L Carbon Dioxide (21.6-31.8) mmol/L BUN (9.0-27.0) mg/dL Est GFR (CKD-EPI) (>=60) BUN/Creatinine Ratio (12.00-20.00) Ratio Glucose (70-110) mg/dL POC Glucose (mg/dL) 256 H 250 H 370 H (70-110) mg/dL Total Protein (6.2-8.2) g/dL Albumin (3.8-4.9) g/dL Albumin/Globulin Ratio (1.60-3.17) Ratio Assessment and Plan Assessment: History of squamous cell carcinoma and adenocarcinoma with s/p resection of right upper lobe and volume loss Left-sided pleural effusion moderate to large Left-sided compressive atelectasis COPD with acute exacerbation Pericardial effusion Plan: Status post thoracentesis by interventional radiology tolerated well however only 500 cc of fluid obtained Agree with holding Plavix and anticoagulants, however now they can be started postthoracentesis chest x-ray reviewed overall stable Reviewed findings of echocardiogram for pericardial effusion, moderate pericar dial effusion identified cardiovascular service following Continue bronchodilators steroids Time with Patient: Greater than 30
[2024-04-29 19:40] LABS: Glucose,Whole Blood 391 mg/dL (70-110)
--- NOTE | 2024-04-30 03:19 | PN ---
PROGRESS NOTE SUBJECTIVE: An 84-year-old white female, status post thoracentesis. She has had a chest x-ray showing minimal effusion. She is breathing much better. Discussed with her discharge home in the morning. She wants to go ahead and discharge at this time. OBJECTIVE: CARDIOVASCULAR: S1, S2. LUNGS: Sitting up and breathing better. Mild wheezes and rhonchi. HEMATOLOGY: Negative Homans. PSYCH: Fair mood and affect. ASSESSMENT: Status post thoracentesis, chronic obstructive pulmonary disease, pleural effusions. Prognosis guarded. Continue next 24 to 48 hours. Discharge home in the morning. Wait for thoracentesis report as an outpatient. Please see further orders. MMODL / IJN: [id number] /
[2024-04-30 03:38] VITALS: RESP 16
[2024-04-30 06:36] LABS: Glucose,Whole Blood 302 mg/dL (70-110)
[2024-04-30 09:25] VITALS: BP 135/84; TEMP 97.3
[2024-04-30] MEDS: ENOXAPARIN 30 MG/0.3 ML SYRINGE SQ SCH (10:33)
[2024-04-30 12:18] LABS: Glucose,Whole Blood 350 mg/dL (70-110)
[2024-04-30 12:21] VITALS: PULSE 83
--- NOTE | 2024-04-30 13:20 | P.PN ---
Subjective Progress Note Date: 04/30/24 Principal diagnosis: History of squamous cell carcinoma and adenocarcinoma with s/p resection of right upper lobe and volume loss Left-sided pleural effusion moderate to large status postthoracentesis 500 cc of fluid removed on April 29 Left-sided compressive atelectasis COPD with acute exacerbation Pericardial effusion April 30, 2024, patient seen eval examined during rounds labs reviewed medication care plan discussed, patient is s/p right-sided thoracentesis 500 cc of fluid has been removed, feeling better in terms of breathing less short of breath and less congested remains afebrile, hemodynamic status stable, oxygen saturation 98% on 3 L oxygen pleural fluid cytology is still pending culture results not back yet April 29, 2024, patient seen eval examined during rounds labs reviewed medications and care plan discussed, patient remains afebrile, hemodynamic status stable oxygen saturation 97% on 3 L, patient underwent ultrasound-guided thoracentesis only 500 cc obtained, postprocedure chest x-ray negative for pneumothorax pleural fluid cytology is pending April 26, 2024, patient seen eval examined during rounds care plan discussed with nurse at bedside at length. Patient slightly upset as thoracentesis is not being performed, explained patient at length due to being on antithrombotic risk of bleeding also thoracic wall size another issue. [place] ultrasound reports and results reviewed about 7 cm left pleural effusion seen, his skin surface to fluid distance was almost 5 cm, Plavix have been on hold, IR planning to do left thoracentesis on Monday. Labs reviewed white cell count 13 hemoglobin hematocrit 8.9/28, platelet count are 1942, sodium 144 potassium 4.7 BUN/creatinine 53/1.7 Patient came into hospital with increasing shortness of breath, does have a history of lung cancer patient has been on oxygen at home which has been escalated also has a history of COPD, generalized anxiety disorder, dyslipidemia, hypertension hypertensive cardiovascular disease, coronary artery disease, history of pneumonia, patient has a history of adenocarcinoma of the right upper lobe and recurrent right-sided pleural effusion requiring multiple thoracentesis patient has squamous cell carcinoma of the left lower lobe as well she is status post right upper lobectomy with lymph node dissection. Her admitted chest x-ray significant for cardiomegaly interstitial edema left lower lobe infiltrate and effusion. CT scan of the chest negative for pulmonary embolism large left-sided pleural effusion with compressive atelectasis of left lung volume loss on the right side. Ultrasound of the chest performed left- sided pleural effusion pocket 11.9 cm, also noted patient has a pericardial effusion as well not reported in the CT scan report Objective - Vital Signs Vital signs: Vital Signs Temp 97.3 F L 04/30/24 09:00 Pulse 83 04/30/24 12:20 Resp 16 04/30/24 09:00 BP 135/84 04/30/24 09:00 Pulse Ox 98 04/30/24 09:00 FiO2 Intake & Output 04/29/24 04/30/24 04/30/24 18:59 06:59 18:59 Intake Total 118 Output Total 600 Balance -600 118 Weight 85 kg 85 kg Intake: Oral 118 Output: Urine 600 Other: Voiding Method Bedside Commode External Catheter # Voids 1 # Bowel Movements 1 1 - Exam - Constitutional General appearance: disheveled, morbidly obese - EENT Eyes: EOMI, PERRLA ENT: normal oropharynx Ears: bilateral: normal - Neck Neck: normal ROM Carotids: bilateral: upstroke normal Thyroid: bilateral: normal size - Respiratory Respiratory: left: diminished, dullness, bilateral: rales, rhonchi, wheezing - Cardiovascular Rhythm: regular Heart sounds: normal: S1, S2 - Gastrointestinal General gastrointestinal: normal bowel sounds, soft - Neurologic Neurologic: CNII-XII intact - Musculoskeletal Musculoskeletal: gait normal, generalized weakness, strength equal bilaterally - Psychiatric Psychiatric: A&O x's 3, appropriate affect, intact judgment & insight - Labs CBC & Chem 7: 04/29/24 03:30 04/29/24 03:30 Labs: Abnormal Lab Results - Last 24 Hours (Table) 04/29/24 04/29/24 04/30/24 Range/Units 16:29 19:39 06:35 POC Glucose (mg/dL) 370 H 391 H 302 H (70-110) mg/dL 04/30/24 Range/Units 12:16 POC Glucose (mg/dL) 350 H (70-110) mg/dL Assessment and Plan Assessment: History of squamous cell carcinoma and adenocarcinoma with s/p resection of right upper lobe and volume loss Left-sided pleural effusion moderate to large Left-sided compressive atelectasis COPD with acute exacerbation Pericardial effusion Plan: Status post thoracentesis by interventional radiology tolerated well however only 500 cc of fluid obtained, cytology and cultures are pending Agree with resuming Plavix and anticoagulants, Reviewed findings of echocardiogram for pericardial effusion, moderate pericardial effusion identified cardiovascular service following Continue bronchodilators steroids Time with Patient: Greater than 30
[2024-05-02 08:11] LABS: Glucose,Whole Blood 412 mg/dL (70-110)
== END 2024-04-30 14:50 | disposition home or self-care (01) | DRG 291 ==
LOC: EC 13:24 → 4SSUR 16:46 → UNDODISIN 04-24 12:52 → 4SSUR 04-29 21:27
PROVIDERS: ADMIT Family Medicine; ATTEND Family Medicine
PROC: 0W9B3ZX Drainage of Left Pleural Cavity, Percutaneous Approach, Diagnostic (ICD-10-PCS; principal; 2024-04-29)
DX: I13.0 Hypertensive heart and chronic kidney disease with heart failure and stage 1 through stage 4 chronic kidney disease, or unspecified chronic kidney disease (principal); I50.33 Acute on chronic diastolic (congestive) heart failure; J96.21 Acute and chronic respiratory failure with hypoxia; C34.90 Malignant neoplasm of unspecified part of unspecified bronchus or lung; I31.39 Other pericardial effusion (noninflammatory); J44.1 Chronic obstructive pulmonary disease with (acute) exacerbation; J98.11 Atelectasis; N17.9 Acute kidney failure, unspecified; J91.0 Malignant pleural effusion; F41.1 Generalized anxiety disorder; K44.9 Diaphragmatic hernia without obstruction or gangrene; I49.1 Atrial premature depolarization; M19.90 Unspecified osteoarthritis, unspecified site; D63.1 Anemia in chronic kidney disease; E66.01 Morbid (severe) obesity due to excess calories; E78.5 Hyperlipidemia, unspecified; I25.10 Atherosclerotic heart disease of native coronary artery without angina pectoris; Z68.34 Body mass index [BMI] 34.0-34.9, adult; N18.9 Chronic kidney disease, unspecified; Z99.81 Dependence on supplemental oxygen; Z79.02 Long term (current) use of antithrombotics/antiplatelets; Z79.51 Long term (current) use of inhaled steroids; Z79.82 Long term (current) use of aspirin; Z79.899 Other long term (current) drug therapy; Z87.01 Personal history of pneumonia (recurrent); Z87.891 Personal history of nicotine dependence; Z90.2 Acquired absence of lung [part of]; Z95.5 Presence of coronary angioplasty implant and graft; Z88.0 Allergy status to penicillin
CPT/HCPCS: 32555; 36415; 71045; 71046; 71275; 76604; 80048; 80053; 83605; 83735; 83880; 84484; 85025; 85379; 85610; 85730; 87636; 88108; 88305; 88341; 88342; 93005; 93306; 94640; 94760; 99285

== ENCOUNTER 2024-05-02 16:54 | Inpatient (IN) | payer MEDICARE, OTHER ==
--- NOTE | 2024-05-02 17:38 | ED ---
General Adult HPI - General Chief complaint: Shortness of Breath Stated complaint: weakness Time Seen by Provider: 05/02/24 16:56 Source: patient, EMS Mode of arrival: EMS - History of Present Illness Initial comments: Dictation was produced using [employer] dictation software. please excuse any grammatical, word or spelling errors. Chief Complaint: 84-year-old female recently discharged for shortness of breath debility presents to the ER for shortness of breath and debility History of Present Illness: Patient is 84-year-old female she is brought in by EMS from home. EMS was called by patient's son. Patient was just discharged from the hospital 2 days ago with a pleural effusion. Recommended to her to be transferred to rehab she refused. She was been at home since being discharged states that she is unable to care for self due to worsening debility along with shortness of breath. Patient Nuys any fever, chills or night sweats. Denies any cough. States that she is so weak and wants to be placed in rehab. The ROS documented in this emergency department record has been reviewed and confirmed by me. Those systems with pertinent positive or negative responses have been documented in the HPI. All other systems are other negative and/or noncontributory. - Related Data Home Medications Medication Instructions Recorded Confirmed ALPRAZolam [Xanax] 0.5 mg PO TID PRN 03/19/14 05/02/24 Montelukast [Singulair] 10 mg PO DAILY 09/15/17 05/02/24 Famotidine [Pepcid] 40 mg PO BID 04/27/21 05/02/24 Budesonide [Pulmicort] 0.5 mg INHALATION RT-BID 05/24/23 05/02/24 Ipratropium-Albuterol Nebulize 3 ml INHALATION RT-QID 05/24/23 05/02/24 [Duoneb 0.5 mg-3 mg/3 ml Soln] Loratadine [Claritin] 10 mg PO DAILY 05/24/23 05/02/24 Potassium Chloride ER [K-Dur 20] 20 meq PO DAILY 05/24/23 05/02/24 HYDROcodone/APAP 10-325MG [[place] 1 tab PO TID PRN 04/22/24 05/02/24 10-325] Previous Rx's Medication Instructions Recorded Atorvastatin [Lipitor] 40 mg PO DAILY 90 Days #90 tab 10/13/23 Metoprolol Succinate (ER) [Toprol 25 mg PO DAILY 90 Days #90 tab 10/13/23 XL] Aspirin 81 mg PO DAILY tab 04/29/24 Bumetanide [BUMEX] 1 mg PO DAILY 90 Days #90 tab 04/29/24 Lactulose [Cephulac] 20 gm PO TID 30 Days #90 ml 04/29/24 Allergies Allergy/AdvReac Type Severity Reaction Status Date / Time Penicillins Allergy Rash/Hives Verified 05/02/24 18:04 Review of Systems ROS Statement: Those systems with pertinent positive or pertinent negative responses have been documented in the HPI. ROS Other: All systems not noted in ROS Statement are negative. 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 History of Any Multi-Drug Resistant Organisms: None Reported Past Surgical History: Appendectomy, Bowel Resection, Ear Surgery, Heart Catheterization With Stent, Hernia Repair, Hysterectomy, Tonsillectomy Additional Past Surgical History / Comment(s): Colon/bowel surgery done in her 30's-21 inches removed, bilateral cataracts removed, bilateral laser eye surgery, hemorroidectomy, hiatal hernia, robotic rt upper lobectomy w/mediastinal lymph node dissection, 1 cardiac stent Past Anesthesia/Blood Transfusion Reactions: No Reported Reaction Additional Past Anesthesia/Blood Transfusion Reaction / Comment(s): no hx blood transfusion Date of Last Stent Placement:: 01/01/18 Past Psychological History: No Psychological Hx Reported Smoking Status: Former smoker Past Alcohol Use History: None Reported Past Drug Use History: None Reported - Past Family History Father Family Medical History: CVA/TIA, Myocardial Infarction (MD) Mother Family Medical History: Cancer Additional Family Medical History / Comment(s): bowel cancer General Exam - General Exam Comments Initial Comments: PHYSICAL EXAM: General Impression: Alert and oriented x3, not in acute distress HEENT: Normocephalic atraumatic, extra-ocular movements intact, pupils equal and reactive to light bilaterally, mucous membranes moist. Cardiovascular: Heart regular rate and rhythm Chest: Able to complete full sentences, no retractions, no tachypnea, mildly dyspneic Abdomen: abdomen soft, non-tender, non-distended, no organomegaly Musculoskeletal: Pulses present and equal in all extremities, no peripheral edema Motor: no focal deficits noted Neurological: CN II-XII grossly intact, no focal motor or sensory deficits noted Skin: Intact with no visualized rashes Psych: Normal affect and mood Course Vital Signs 05/02/24 05/02/24 16:57 17:08 Temperature 98.0 F Pulse Rate 110 H Respiratory 22 22 Rate Blood Pressure 117/66 O2 Sat by Pulse 98 Oximetry EKG Findings - EKG Comments: EKG Findings:: My EKG interpretation: Ventricular rate 102, sinus tachycardia,. 173, QRS 80, QTc 3-5. No MS prolongation, no QTC prolongation, no ST or T-wave changes noted. . Overall, this EKG is unremarkable Medical Decision Making - Medical Decision Making Was pt. sent in by a medical professional or institution (, PA, CANCER REGISTRY MANAGER, urgent care, hospital, or fci...) When possible be specific @ -No Did you speak to anyone other than the patient for history (EMS, parent, family, police, friend...)? What history was obtained from this source @ -No Did you review nursing and triage notes (agree or disagree)? Why? @ -I reviewed and agree with nursing and triage notes Were old charts reviewed (outside hosp., previous admission, EMS record, old EKG, old radiological studies, urgent care reports/EKG's, fci records)? Report findings @ -No old charts were reviewed Differential Diagnosis (chest pain, altered mental status, abdominal pain women, abdominal pain men, vaginal bleeding, musculoskeletal, weakness, fever, dyspnea, syncope, headache, dizziness, GI bleed, back pain, seizure, CVA, palpatations, mental health)? @ -Differential Weakness: Hypoglycemia, shock, sepsis, hyponatremia, anemia, infection, MD, ETOH, adverse medicine reaction, overdose, stroke, this is not meant to be an all-inclusive list. EKG interpreted by me (3pts min.). @ -See above X-rays interpreted by me (1pt min.). @ -Chest x-ray shows cardiomegaly and pleural effusion CT interpreted by me (1pt min.). @ -None done U/S interpreted by me (1pt. min.). @ -None done What testing was considered but not performed or refused? (CT, X-rays, U/S, labs)? Why? @ -None What meds were considered but not given or refused? Why? @ -None Was smoking cessation discussed for >3mins.? @ -No Were there social determinants of health that impacted care today? How? (Homelessness, low income, unemployed, alcoholism, drug addiction, transportation, low edu. Level, literacy, decrease access to med. care, assisted, rehab)? @ -Debility, poor social situation Was there de-escalation of care discussed even if they declined (Discuss DNR or withdrawal of care, Hospice)? DNR status @ -No What co-morbidities impacted this encounter? (DM, HTN, Smoking, COPD, CAD, Cancer, CVA, ARF, Chemo, Hep., AIDS, mental health diagnosis, sleep apnea, morbid obesity)? @ -Heart failure Was patient admitted / discharged? Hospital course, mention meds given and route, prescriptions, significant lab abnormalities, going to OR and other pertinent info. @ -84-year-old female presents to the emergency department for weakness she was recently admitted and discharged. Vital signs upon arrival are within acceptable limits. Patient well-appearing at bedside resting comfortably upon reevaluation 7:58 PM. Laboratory evaluation obtained labs within acceptable limits. Case discussed with Dr. Saul who is willing to accept patient's care for admission for rehab placement. Did you discuss the management of the patient with other professionals (professionals i.e. , PA, CANCER REGISTRY MANAGER, lab, RT, psych nurse, social problems specialist, flaring machine operator, teacher, court registry officer, upper caser)? Give summary @ -See above Was critical care preformed (if so, how long)? @ -No Undiagnosed new problem with uncertain prognosis? @ -No Drug Therapy requiring intensive monitoring for toxicity (Heparin, Nitro, Insulin, Cardizem)? @ -No Were any procedures done? @ -No Diagnosis/symptom? Acute, or Chronic, or Acute on Chronic? Uncomplicated (without systemic symptoms) or Complicated (systemic symptoms)? @ -Grave disability Side effects of treatment? @ -No Exacerbation, Progression, or Severe Exacerbation? @ -No Poses a threat to life or bodily function? How? (Chest pain, USA, MD, pneumonia, PE, COPD, DKA, ARF, appy, cholecystitis, CVA, Diverticulitis, Homicidal, Suicidal, threat to staff... and all critical care pts) @ -yes - Lab Data Result diagrams: 05/02/24 17:53 05/02/24 17:53 Lab Results 05/02/24 05/02/24 05/02/24 Range/Units 17:53 17:53 17:53 WBC 12.4 H (3.8-10.6) k/uL RBC 3.54 L (3.80-5.40) m/uL Hgb 10.2 L (11.4-16.0) gm/dL Hct 32.0 L (34.0-46.0) % MCV 90.2 (80.0-100.0) fL MCH 28.7 (25.0-35.0) pg MCHC 31.8 (31.0-37.0) g/dL RDW 15.5 (11.5-15.5) % Plt Count 181 (150-450) k/uL MPV 9.8 Neutrophils % 82 % Lymphocytes % 9 % Monocytes % 5 % Eosinophils % 3 % Basophils % 0 % Neutrophils # 10.1 H (1.3-7.7) k/uL Lymphocytes # 1.1 (1.0-4.8) k/uL Monocytes # 0.6 (0-1.0) k/uL Eosinophils # 0.4 (0-0.7) k/uL Basophils # 0.0 (0-0.2) k/uL Hypochromasia Slight PT 10.3 (10.0-12.5) sec INR 0.9 (<1.2) APTT 20.5 L (22.0-30.0) sec Sodium 136 L (137-145) mmol/L Potassium 4.0 (3.5-5.1) mmol/L Chloride 96 L (98-107) mmol/L Carbon Dioxide 37 H (22-30) mmol/L Anion Gap 3 mmol/L BUN 50 H (7-17) mg/dL Creatinine 1.08 H (0.52-1.04) mg/dL Est GFR (CKD-EPI)AfAm 55 (>60 ml/min/1.73 sqM) Est GFR (CKD-EPI)NonAf 48 (>60 ml/min/1.73 sqM) Glucose 185 H (74-99) mg/dL Plasma Lactic Acid [place] (0.7-2.0) mmol/L Calcium 8.6 (8.4-10.2) mg/dL Magnesium 2.5 H (1.6-2.3) mg/dL Total Bilirubin 1.2 (0.2-1.3) mg/dL AST 21 (14-36) U/L ALT 24 (4-34) U/L Alkaline Phosphatase 84 (38-126) U/L Troponin I (0.000-0.034) ng/mL NT-Pro-B Natriuret Pep 604 pg/mL Total Protein 5.6 L (6.3-8.2) g/dL Albumin 3.1 L (3.5-5.0) g/dL 05/02/24 05/02/24 Range/Units 17:53 17:53 WBC (3.8-10.6) k/uL RBC (3.80-5.40) m/uL Hgb (11.4-16.0) gm/dL Hct (34.0-46.0) % MCV (80.0-100.0) fL MCH (25.0-35.0) pg MCHC (31.0-37.0) g/dL RDW (11.5-15.5) % Plt Count (150-450) k/uL MPV Neutrophils % % Lymphocytes % % Monocytes % % Eosinophils % % Basophils % % Neutrophils # (1.3-7.7) k/uL Lymphocytes # (1.0-4.8) k/uL Monocytes # (0-1.0) k/uL Eosinophils # (0-0.7) k/uL Basophils # (0-0.2) k/uL Hypochromasia PT (10.0-12.5) sec INR (<1.2) APTT (22.0-30.0) sec Sodium (137-145) mmol/L Potassium (3.5-5.1) mmol/L Chloride (98-107) mmol/L Carbon Dioxide (22-30) mmol/L Anion Gap mmol/L BUN (7-17) mg/dL Creatinine (0.52-1.04) mg/dL Est GFR (CKD-EPI)AfAm (>60 ml/min/1.73 sqM) Est GFR (CKD-EPI)NonAf (>60 ml/min/1.73 sqM) Glucose (74-99) mg/dL Plasma Lactic Acid [place] 1.6 (0.7-2.0) mmol/L Calcium (8.4-10.2) mg/dL Magnesium (1.6-2.3) mg/dL Total Bilirubin (0.2-1.3) mg/dL AST (14-36) U/L ALT (4-34) U/L Alkaline Phosphatase (38-126) U/L Troponin I 0.029 (0.000-0.034) ng/mL NT-Pro-B Natriuret Pep pg/mL Total Protein (6.3-8.2) g/dL Albumin (3.5-5.0) g/dL Disposition Clinical Impression: Weakness, Gravely disabled Disposition: ADMITTED IP TO THIS [facility] Condition: Fair Referrals: Billy Saul MD [Primary Care Provider] - 1-2 days Decision Time: 18:00
[2024-05-02 18:06] LABS: Basophils % (A) 0 %; Eosinophils # (A) 0.4 k/uL (0-0.7); Eosinophils % (A) 3 %; HGB 10.2 gm/dL (11.4-16.0); Hypochromasia Slight; Lymphocytes # (A) 1.1 k/uL (1.0-4.8); Lymphocytes % (A) 9 %; MCH 28.7 pg (25.0-35.0); MCHC 31.8 g/dL (31.0-37.0); MCV 90.2 fL (80.0-100.0); Mean Platelet Volume 9.8; Monocytes # (A) 0.6 k/uL (0-1.0); Monocytes % (A) 5 %; Neutrophils # (A) 10.1 k/uL (1.3-7.7); Neutrophils % (A) 82 %; Platelet Count 181 k/uL (150-450); RBC 3.54 m/uL (3.80-5.40); RDW 15.5 % (11.5-15.5); WBC 12.4 k/uL (3.8-10.6)
[2024-05-02 18:17] LABS: ALT 24 U/L (4-34); AST 21 U/L (14-36); African American GFR (CKD) 55 (>60 ml/min/1.73 sqM); Albumin 3.1 g/dL (3.5-5.0); Alkaline Phosphatase 84 U/L (38-126); Anion Gap 3 mmol/L; Blood Urea Nitrogen 50 mg/dL (7-17); Calcium 8.6 mg/dL (8.4-10.2); Carbon Dioxide 37 mmol/L (22-30); Chloride 96 mmol/L (98-107); Glucose 185 mg/dL (74-99); Magnesium 2.5 mg/dL (1.6-2.3); Non-African American GFR(CKD) 48 (>60 ml/min/1.73 sqM); Sodium 136 mmol/L (137-145); Total Bilirubin 1.2 mg/dL (0.2-1.3); Total Protein 5.6 g/dL (6.3-8.2)
[2024-05-02 18:25] LABS: INR 0.9 (<1.2); NT-Pro-B-Type Natriuretic Pept 604 pg/mL; Partial Thromboplastin Time 20.5 sec (22.0-30.0); Prothrombin Time 10.3 sec (10.0-12.5)
--- NOTE | 2024-05-02 19:17 | XR ---
EXAMINATION TYPE: XR chest 2V DATE OF EXAM: 05/02/2024 6:49 PM CLINICAL INDICATION: Female, 84 years old with history of dyspnea; [facility] COMPARISON: Chest radiographs from04/29/2024 TECHNIQUE: XR chest 2V Frontal view of the chest. FINDINGS: Lungs/Pleura: No evidence of focal consolidation or pneumothorax. Blunting of the costophrenic angles is present. Pulmonary vascularity: Unremarkable. Heart/mediastinum: Cardiomediastinal silhouette is enlarged. Musculoskeletal: No acute osseous pathology. Other findings: None IMPRESSION: Cardiomegaly left pleural effusions. Correlate with BNP for congestive heart failure. [facility], , 05/02/2024 7:14 PM
[2024-05-02] MEDS ORDERED: NALOXONE 0.4 MG/ML 1 ML VIAL IV PRN (19:52)
[2024-05-02] MEDS: BUDESONIDE 0.5 MG/2 ML NEBU INHALATION SCH (20:26)
[2024-05-02] MEDS: IPRATROPIUM-ALBUTEROL 3 ML NEB INHALATION SCH (20:27)
[2024-05-02] MEDS: LACTULOSE 20 GM/30 ML CUP PO SCH (21:37)
[2024-05-02] MEDS: FAMOTIDINE 20 MG TAB PO SCH (21:38)
[2024-05-02] MEDS: SODIUM CHLORIDE 0.9% 1,000 ML IV SCH (21:39)
--- NOTE | 2024-05-02 22:02 | CT ---
EXAMINATION TYPE: CT chest wo con CT DLP: 665.7 mGycm, Automated exposure control for dose reduction was used. DATE OF EXAM: 05/02/2024 9:44 PM COMPARISON: 04/22/2024 CLINICAL INDICATION: Female, 84 years old with history of lung cancer; [facility], Patient AO x3, verbalized weakness, home O2 at 2 liters nasal canula, states she was just discharged two days ago with pleural effusions and rehab was recommended. States she has been too weak to take care of herself so she [facility]er led EMS. TECHNIQUE: Multiple axial images were obtained through the chest. Sagittal and coronal reformats were created for review. MIP was performed on a separate workstation. Contrast used: mL of (None if empty) Oral contrast used: (None if empty) FINDINGS: LUNGS/ PLEURA: Trace left pleural effusion. No right pleural effusion. Mild centrilobular emphysema c hanges. Mild intralobular septal thickening. Few scattered airspace opacities in left lower lobe. AIRWAY: Diffuse scattered opacified large airways in the left lower lobe. HEART: Size within normal limits. MEDIASTINUM: No gross evidence of adenopathy. VASCULATURE: No aortic aneurysm. MUSCULOSKELETAL: Mild disc degeneration changes are present throughout the thoracolumbar spine. SOFT TISSUES/LYMPH NODES: Unremarkable. LOWER NECK: No significant findings. UPPER ABDOMEN: Gallstones in the gallbladder lumen. Atherosclerosis of the renal sinuses. IMPRESSION: 1. Airspace opacities in the left lower lung with opacified airways correlate for aspiration. Findin katherine new from 04/22/2024. 2. Trace left pleural effusion with pulmonary edema. 3. Cholelithiasis. [facility], , 05/02/2024 10:00 PM
[2024-05-02] MEDS: HYDROcodone/APAP 10-325MG 1 EACH TAB PO PRN (23:35)
--- NOTE | 2024-05-03 04:29 | HP ---
HISTORY AND PHYSICAL HISTORY OF PRESENT ILLNESS: Jana Arellano came back to the hospital for bilateral pleural effusions, weakness. Prior thoracentesis a week ago showed squamous cell carcinoma in the fluid, there is sort of glucose, there is sort of cancers. This is the third cancer in the lung. Consult Dr. Garay for Oncology as well as Pulmonary. HOME MEDICINES: 1. DuoNeb q.i.d. 2. Oxygen 3 to 4 L 24 hours a day. 3. Lipitor 40 daily. 4. Xanax 0.5 t.i.d. 5. Aspirin 81 daily. 6. Pulmicort 0.5 b.i.d. 7. Bumex 1 mg daily. 8. Pepcid 40 b.i.d. 9. [place] 10 t.i.d. 10.Loratadine 10 daily. 11.Toprol-XL 25 daily. 12.Singulair 10 daily. 13.K-Dur 20 mEq daily. CONDITION: Stable. PROGNOSIS: Guarded. Ambulate as tolerated. PHYSICAL EXAMINATION: GENERAL: White female, who was accompanying with 4 L oxygen. VITAL SIGNS: Pulse ox is low 100, blood pressure 130/74, O2 98% on 2 L. CARDIOVASCULAR: S1, S2. LUNGS: Scattered wheeze and rhonchi. HEMATOLOGY: Negative Homans. GI: Soft. ASSESSMENT: Squamous cell carcinoma in the fluid from thoracentesis a week ago, severe chronic obstructive pulmonary disease, diastolic heart failure. Pleural effusions. Prognosis guarded. Wait for Oncology and Pulmonary recommendations. Prognosis guarded. She is full code. MMODL / IJN: [id number] /
[2024-05-03] MEDS: LORATADINE 10 MG TAB PO SCH (08:28)
[2024-05-03] MEDS: POTASSIUM CHLORIDE ER 20 MEQ TAB.ER PO SCH (08:28)
[2024-05-03] MEDS: ASPIRIN 81 MG PO SCH (08:28)
[2024-05-03] MEDS: METOPROLOL SUCCINATE (ER) 25 MG TAB.ER.24H PO SCH (08:28)
[2024-05-03] MEDS: MONTELUKAST 10 MG TAB PO SCH (08:28)
[2024-05-03] MEDS: ATORVASTATIN 40 MG TAB PO SCH (08:28)
[2024-05-03] MEDS: BUMETANIDE 1 MG TAB PO SCH (08:52)
--- NOTE | 2024-05-03 09:18 | P.CNPUL ---
History of Present Illness Consult date: 05/03/24 Reason for consult: dyspnea, cough, COPD, hypoxemia, pleural effusion Chief complaint: Shortness of breath and cough History of present illness: 84-year-old female with end-stage COPD as well as metastatic lung cancer with pleural effusion, patient was discharged 2 days ago from the hospital after left thoracentesis, EMS were notified by son due to weakness tiredness not feeling well, patient was recommended for rehab placement prior but she declined of note that at home she was not able to take care of herself worsening weakness ongoing shortness of breath present however denies any fever chills night sweats denies any chest pain cough or sputum production now patient is agreeable for placement in rehab. Labs reviewed WBC count 12.4, hemoglobin hematocrit is 10/32 coags okay chemistry sodium 136 potassium 4 BUN/creatinine 50/1.08 glucose 185 on 2 L oxygen saturation 100% came down to 99% 1.5 L currently patient has been started resumed on DuoNeb along with home medications and Pulmicort she has been resumed on Bumex as she is taking before and Singulair and her ECG is nonspecific changes sinus tachycardia. Chest x-ray cardiomegaly pleural effusion CT scan of the chest tiny left pleural effusion no right pleural effusion extensive emphysema and COPD with evidence of aspiration pneumonia on the left side. 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 History of Any Multi-Drug Resistant Organisms: None Reported Past Surgical History: Appendectomy, Bowel Resection, Ear Surgery, Heart Catheterization With Stent, Hernia Repair, Hysterectomy, Tonsillectomy Additional Past Surgical History / Comment(s): Colon/bowel surgery done in her 30's-21 inches removed, bilateral cataracts removed, bilateral laser eye surgery, hemorroidectomy, hiatal hernia, robotic rt upper lobectomy w/media stinal lymph node dissection, 1 cardiac stent Past Anesthesia/Blood Transfusion Reactions: No Reported Reaction Additional Past Anesthesia/Blood Transfusion Reaction / Comment(s): no hx blood transfusion Date of Last Stent Placement:: 01/01/18 Past Psychological History: No Psychological Hx Reported Additional Psychological History / Comment(s): . Smoking Status: Former smoker Past Alcohol Use History: None Reported Additional Past Alcohol Use History / Comment(s): quit smoking 07/18/17 smoked since age 20 1 1/2ppd Past Drug Use History: None Reported - Past Family History Father Family Medical History: CVA/TIA, Myocardial Infarction (DC) Mother Family Medical History: Cancer Additional Family Medical History / Comment(s): bowel cancer Medications and Allergies Home Medications Medication Instructions Recorded Confirmed Type ALPRAZolam [Xanax] 0.5 mg PO TID PRN 03/19/14 05/02/24 History Montelukast [Singulair] 10 mg PO DAILY 09/15/17 05/02/24 History Famotidine [Pepcid] 40 mg PO BID 04/27/21 05/02/24 History Budesonide [Pulmicort] 0.5 mg INHALATION RT-BID 05/24/23 05/02/24 History Ipratropium-Albuterol Nebulize 3 ml INHALATION RT-QID 05/24/23 05/02/24 History [Duoneb 0.5 mg-3 mg/3 ml Soln] Loratadine [Claritin] 10 mg PO DAILY 05/24/23 05/02/24 History Potassium Chloride ER [K-Dur 20] 20 meq PO DAILY 05/24/23 05/02/24 History Atorvastatin [Lipitor] 40 mg PO DAILY 90 Days #90 tab 10/13/23 05/02/24 Rx Metoprolol Succinate (ER) [Toprol 25 mg PO DAILY 90 Days #90 tab 10/13/23 05/02/24 Rx XL] HYDROcodone/APAP 10-325MG [[place] 1 tab PO TID PRN 04/22/24 05/02/24 History 10-325] Aspirin 81 mg PO DAILY tab 04/29/24 05/02/24 Rx Bumetanide [BUMEX] 1 mg PO DAILY 90 Days #90 tab 04/29/24 05/02/24 Rx Lactulose [Cephulac] 20 gm PO TID 30 Days #90 ml 04/29/24 05/02/24 Rx Allergies Allergy/AdvReac Type Severity Reaction Status Date / Time Penicillins Allergy Rash/Hives Verified 05/02/24 18:04 Physical Exam Vitals: Vital Signs Temp Pulse Pulse Resp BP BP Pulse Ox 05/03/24 07:01 97.5 F L 96 16 146/80 99 05/03/24 01:30 97.4 F L 97 19 147/63 100 05/03/24 01:00 96 16 146/68 100 05/03/24 00:05 93 34 H 146/68 98 05/03/24 00:00 101 H 20 130/74 98 05/02/24 23:00 96 18 127/67 100 05/02/24 20:37 103 H 05/02/24 20:28 103 H 05/02/24 20:02 97.7 F 105 H 28 H 109/63 99 05/02/24 17:08 22 05/02/24 16:57 98.0 F 110 H 22 117/66 98 Intake and Output 05/02/24 05/03/24 05/03/24 22:59 06:59 14:59 Output Total 50 Balance -50 Output: Urine 50 Other: Weight 81.647 kg 81.647 kg - Constitutional General appearance: average body habitus, cooperative, disheveled, mild distress - EENT Eyes: PERRLA Ears: bilateral: normal - Neck Neck: normal ROM Carotids: bilateral: upstroke normal - Respiratory Respiratory: bilateral: rales - Cardiovascular Rhythm: regular Heart sounds: normal: S1, S2 - Gastrointestinal General gastrointestinal: normal bowel sounds - Neurologic Neurologic: CNII-XII intact - Musculoskeletal Musculoskeletal: gait normal, generalized weakness, strength equal bilaterally - Psychiatric Psychiatric: A&O x's 3, appropriate affect, intact judgment & insight Results - Laboratory Findings CBC and BMP: 05/02/24 17:53 05/02/24 17:53 PT/INR, D-dimer PT 10.3 sec (10.0-12.5) 05/02/24 17:53 INR 0.9 (<1.2) 05/02/24 17:53 Abnormal lab findings: Abnormal Labs 05/02/24 05/02/24 05/02/24 17:53 17:53 17:53 WBC 12.4 H RBC 3.54 L Hgb 10.2 L Hct 32.0 L Neutrophils # 10.1 H APTT 20.5 L Sodium 136 L Chloride 96 L Carbon Dioxide 37 H BUN 50 H Creatinine 1.08 H Glucose 185 H Magnesium 2.5 H Total Protein 5.6 L Albumin 3.1 L Assessment and Plan Assessment: Left lower lobe pneumonia Acute on chronic hypoxic respiratory failure Metastatic squamous cell lung cancer Pleural fluid cytology positive for squamous cell cancer Generalized weakness and medical debility History COPD Plan: IV antibiotics given history of allergy to penicillin we will do Levaquin Full PT OT evaluation for rehab placement Home medications Sided pleural fluid minimal no intervention needed Oncology evaluation pending, consider hospice Will be available as needed right Time with Patient: Greater than 30
--- NOTE | 2024-05-03 10:03 | XR ---
EXAMINATION TYPE: XR foot limited LT DATE OF EXAM: 05/03/2024 9:47 AM CLINICAL INDICATION: Female, 84 years old with history of left foot and ankle pain, wounds; [facility] COMPARISON: 06/20/2019 TECHNIQUE: XR foot limited LT examined in the AP, oblique, and lateral projections. FINDINGS: Soft tissue swelling without evidence of subcutaneous gas or erosion to suggest osteomyelitis. No harman dence of any acute osseous pathology. Soft tissue swelling present. Multifocal degeneration changes t hroughout the joints of the foot with osteophyte formation and joint space narrowing. IMPRESSION: 1. Soft tissue swelling without evidence of fracture or osteomyelitis 2. Multifocal degeneration changes throughout the joints of the foot. [facility], , 05/03/2024 10:01 AM
[2024-05-03] MEDS: LEVOFLOXACIN 500MG-D5W PMX 500 MG in DEXTROSE/WATER 1 100ML.BAG IVPB SCH (10:08)
[2024-05-03] MEDS: CEFEPIME 2 GM in SODIUM CHLORIDE 0.9% 100 ML IVPB SCH (13:36)
[2024-05-03] MEDS: metroNIDAZOLE 500 MG TAB PO SCH (15:21)
[2024-05-03] MEDS: IOPAMIDOL CONTRAST (ORAL USE) VIAL PO PRN (15:51)
--- NOTE | 2024-05-03 17:43 | CT ---
EXAMINATION TYPE: CT abdomen pelvis w con DATE OF EXAM: 05/03/2024 COMPARISON: PET/CT 12/25/2023 INDICATION: Hx lung cancer, malignant pleural effusion,staging. DLP: 1283.8 mGycm, Automated exposure control for dose reduction was used. CONTRAST: 80 ml mL of Isovue 370. Study performed with Oral Contrast TECHNIQUE: Axial images were obtained from above the diaphragm to the pubic rami in the axial plane a t 5 mm thick sections. Reconstructed images are reviewed on the computer in the coronal plane. FINDINGS: Limited CT sections are obtained the lung bases. There is a small left pleural effusion. Adjacent co mpressive atelectasis appears to be present.. Within the subcutaneous tissues adjacent to the library cataloging technician ior left lung base, series 201 image 19, there is a nodule which appears to correlate with a hyperint ense nodule on the CT CT ABDOMEN: There is mesenteric fat containing anterior abdominal wall hernia in the periumbilical re gion with an opening of 2.9 cm. No bowel are all. Liver: Normal Spleen: Normal Pancreas: Normal Adrenal glands: The adrenal glands are normal. Gallbladder: Gallstones are present. Kidneys: No masses are evident. No hydronephrosis is present. No cysts are present. Delayed images were obtained through the kidneys, which remain unremarkable. Aorta: Vascular calcification is within the aorta. There is minimal fusiform prominence of the mid a bdominal aorta with an AP diameter of 3.1 cm Mild prominence of the left common iliac artery measuring 2.0 cm. The distal common iliac arteries is measuring 3.4 cm. Inferior vena cava: Normal. CT PELVIS: Loops of bowel within the abdomen and pelvis are normal. There are loops of bowel which are incom pletely distended or lack oral contrast limiting their evaluation. Appendix: Normal as visualized. Urinary bladder: Normal. Genitourinary structures: Uterus and ovaries are not identified. Osseous structures: No suspicious lytic or sclerotic lesions. Degenerative disc changes are within th e lower lumbar spine. IMPRESSION: 1. 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 There is mild fusiform prominence of the mid abdominal aorta and proximal left common iliac artery. 2. Cholelithiasis. 3. Small left pleural effusion with adjacent compressive atelectasis. Underlying neoplasm is not excl uded. Follow-up recommended [facility], Workstation: [id number] 05/03/2024 5:41 PM
--- NOTE | 2024-05-03 18:16 | P.CONS ---
History of Present Illness - Reason for Consult Consult date: 05/03/24 lung cancer Requesting physician: Billy Saul - Chief Complaint weakness - History of Present Illness Patient is an 84-year-old female with a significant history of squamous cell carcinoma of the lung s/p wedge resection of LLL in February 2022. Patient states she did not undergo systemic treatment or radiation and did not follow-up with oncology at that time. Consult was placed for malignant pleural effusion. Patient was recently admitted for shortness of breath and underwent left-sided thoracentesis on 04/29/2024 with 500 mL removed, cytology was positive for rare metastatic non-small carcinoma consistent with squamous cell carcinoma. Upon review of EMR, patient had PET/CT on 12/25/2023 which showed mildly hypermetabolic small bilateral pulmonary nodules. Patient presented to emergency room for debility and unable to take care of herself and for rehab placement. Upon admit chest x-ray showing cardiomegaly and left pleural effusion. CT chest without contrast revealed airspace opacities in the left lower lung with opacified airways, correlate for aspiration. Trace left pleural effusion with pulmonary edema. Levaquin started. Labs reviewed, WBC 12.4, hemoglobin 10.2, MCV 90.2, platelets 181,000. Creatinine 1.08, GFR 48, bun 50. BNP 604, troponin negative. Patient is afebrile, SpO2 high 90s on 2L. At today's visit patient is reporting intermittent shortness of breath and cough which has been ongoing with no acute changes. Denies hemoptysis and unintentional weight loss. 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 History of Any Multi-Drug Resistant Organisms: None Reported Past Surgical History: Appendectomy, Bowel Resection, Ear Surgery, Heart Catheterization With Stent, Hernia Repair, Hysterectomy, Tonsillectomy Additional Past Surgical History / Comment(s): Colon/bowel surgery done in her 30's-21 inches removed, bilateral cataracts removed, bilateral laser eye cavanaugh rgery, hemorroidectomy, hiatal hernia, robotic rt upper lobectomy w/mediastinal lymph node dissection, 1 cardiac stent Past Anesthesia/Blood Transfusion Reactions: No Reported Reaction Additional Past Anesthesia/Blood Transfusion Reaction / Comm: no hx blood transfusion Date of Last Stent Placement:: 01/01/18 Past Psychological History: No Psychological Hx Reported Additional Psychological History / Comment(s): . Smoking Status: Former smoker Past Alcohol Use History: None Reported Additional Past Alcohol Use History / Comment(s): quit smoking 07/18/17 smoked since age 20 1 1/2ppd Past Drug Use History: None Reported - Past Family History Father Family Medical History: CVA/TIA, Myocardial Infarction ([place]) Mother Family Medical History: Cancer Additional Family Medical History / Comment(s): bowel cancer Medications and Allergies Home Medications Medication Instructions Recorded Confirmed Type ALPRAZolam [Xanax] 0.5 mg PO TID PRN 03/19/14 05/02/24 History Montelukast [Singulair] 10 mg PO DAILY 09/15/17 05/02/24 History Famotidine [Pepcid] 40 mg PO BID 04/27/21 05/02/24 History Budesonide [Pulmicort] 0.5 mg INHALATION RT-BID 05/24/23 05/02/24 History Ipratropium-Albuterol Nebulize 3 ml INHALATION RT-QID 05/24/23 05/02/24 History [Duoneb 0.5 mg-3 mg/3 ml Soln] Loratadine [Claritin] 10 mg PO DAILY 05/24/23 05/02/24 History Potassium Chloride ER [K-Dur 20] 20 meq PO DAILY 05/24/23 05/02/24 History Atorvastatin [Lipitor] 40 mg PO DAILY 90 Days #90 tab 10/13/23 05/02/24 Rx Metoprolol Succinate (ER) [Toprol 25 mg PO DAILY 90 Days #90 tab 10/13/23 05/02/24 Rx XL] HYDROcodone/APAP 10-325MG [[place] 1 tab PO TID PRN 04/22/24 05/02/24 History 10-325] Aspirin 81 mg PO DAILY tab 04/29/24 05/02/24 Rx Bumetanide [BUMEX] 1 mg PO DAILY 90 Days #90 tab 04/29/24 05/02/24 Rx Lactulose [Cephulac] 20 gm PO TID 30 Days #90 ml 04/29/24 05/02/24 Rx Allergies Allergy/AdvReac Type Severity Reaction Status Date / Time Penicillins Allergy Rash/Hives Verified 05/02/24 18:04 Physical Exam Vitals: Vital Signs Temp Pulse Pulse Resp BP BP Pulse Ox 05/03/24 13:03 104 H 05/03/24 12:53 104 H 05/03/24 09:53 100 05/03/24 09:42 100 05/03/24 07:01 97.5 F L 96 16 146/80 99 05/03/24 01:30 97.4 F L 97 19 147/63 100 05/03/24 01:00 96 16 146/68 100 05/03/24 00:05 93 34 H 146/68 98 05/03/24 00:00 101 H 20 130/74 98 05/02/24 23:00 96 18 127/67 100 05/02/24 20:37 103 H 05/02/24 20:28 103 H 05/02/24 20:02 97.7 F 105 H 28 H 109/63 99 05/02/24 17:08 22 05/02/24 16:57 98.0 F 110 H 22 117/66 98 Intake and Output 05/02/24 05/03/24 05/03/24 22:59 06:59 14:59 Output Total 50 Balance -50 Output: Urine 50 Other: Voiding Method External Catheter Weight 81.647 kg 81.647 kg - Constitutional General appearance: no acute distress - EENT Eyes: anicteric sclerae, EOMI ENT: hearing grossly normal - Respiratory Respiratory: bilateral: diminished - Cardiovascular Rhythm: regular - Gastrointestinal General gastrointestinal: soft, no tenderness - Integumentary Integumentary: no cyanotic, no jaundiced - Musculoskeletal Musculoskeletal: generalized weakness - Psychiatric Psychiatric: A&O x's 3 Results CBC & Chem 7: 05/02/24 17:53 05/02/24 17:53 Labs: Abnormal Lab Results - Last 24 Hours (Table) 05/02/24 05/02/24 05/02/24 Range/Units 17:53 17:53 17:53 WBC 12.4 H (3.8-10.6) k/uL RBC 3.54 L (3.80-5.40) m/uL Hgb 10.2 L (11.4-16.0) gm/dL Hct 32.0 L (34.0-46.0) % Neutrophils # 10.1 H (1.3-7.7) k/uL APTT 20.5 L (22.0-30.0) sec Sodium 136 L (137-145) mmol/L Chloride 96 L (98-107) mmol/L Carbon Dioxide 37 H (22-30) mmol/L BUN 50 H (7-17) mg/dL Creatinine 1.08 H (0.52-1.04) mg/dL Glucose 185 H (74-99) mg/dL Magnesium 2.5 H (1.6-2.3) mg/dL Total Protein 5.6 L (6.3-8.2) g/dL Albumin 3.1 L (3.5-5.0) g/dL Comments: PET CT reviewed Chest x-ray: report reviewed CT scan - chest: report reviewed Assessment and Plan (1) Malignant pleural effusion Current Visit: Yes Status: Acute Priority: High Code(s): J91.0 - MALIGNANT PLEURAL EFFUSION SNOMED Code(s): 050373841 (2) Weakness Current Visit: Yes Status: Acute Priority: High Code(s): R53.1 - WEAKNESS SNOMED Code(s): 48484854 (3) History of adenocarcinoma of lung Current Visit: Yes Status: Resolved Priority: Medium Code(s): Z85.118 - PERSONAL HISTORY OF MALIGNANT NEOPLASM OF BRONCHUS AND LUNG SNOMED Code(s): 093142897 (4) Anemia Current Visit: Yes Status: Acute Priority: Medium Code(s): D64.9 - ANEMIA, UNSPECIFIED SNOMED Code(s): 176893219 Plan: Hx lung adenocarcinoma, malignant pleural effusion: -History of lung adenocarcinoma. S/p LLL wedge resection in 02/2022 -Patient was recently admitted and underwent left-sided thoracentesis on 04/29/2024 with 500 mL removed, cytology was positive for rare metastatic non- small carcinoma consistent with squamous cell carcinoma. Upon review of EMR, patient had PET/CT on 12/25/2023 which showed mildly hypermetabolic small bilateral pulmonary nodules. -On admit CT chest without contrast revealed airspace opacities in the left lower lung with opacified airways, correlate for aspiration. Trace left pleural effusion with pulmonary edema. Levaquin started -Will obtain staging scans with CT AP, NM bone scan and brain MRI -NGS/PDL-1 requested on cytology Discussed findings/results and POC with patient. All questions and concerns were addressed Normocytic anemia: -Labs reviewed, WBC 12.4, hemoglobin 10.2, MCV 90.2, platelets 181,000. C reatinine 1.08, GFR 48, bun 50. -Upon trending labs, hgb has been in 9-11 range. No previous nutritional studies within EMR. Denies acute bleeding episodes -Nutritional studies orders -Continue to monitor CBC Doctor attests: I performed a history and physical examination of this patient, developed impression and plan of care. Discussed with dictator. I agree with dictators note, documented as a scribe.
[2024-05-03] MEDS: NA PHOS,M-B/NA PHOS,DI-BA 133 ML ENEMA RECTAL ONE (18:44)
--- NOTE | 2024-05-03 22:59 | P.CONS ---
History of Present Illness - Reason for Consult Consult date: 05/03/24 Left leg wound and drainage Requesting physician: Marcia Zhao - Chief Complaint Weakness and not feeling well x days - History of Present Illness Patient is a 84-year-old female past medical history significant for hypertension hyperlipidemia COPD osteoarthritis pneumonia coronary artery disease in this patient presenting to the hospital for evaluation of worsening debility along with shortness of breath apparently the patient just discharged from the hospital 2 days ago and the patient initially refused to go to the rehab however at home she was not able to take care of herself at home complaining of more shortness of breath denies significant cough or sputum production and denies high-grade fever or chills patient apparently did have wound to the left lower extremity which has been there for more than 2 weeks and started as a trauma patient now complaining of nonhealing of this wound for 2 weeks and is getting worse she has been complaining of pain mostly dull aching to sharp moderate intensity without radiation and did have some foul-smelling drainage patient did have a white count of 12.4 on admission creatinine 1.08 BUN was elevated liver isms are normal procalcitonin 0.11 patient did have chest x- ray cardiomegaly left effusion correlate with BNP for congestive heart failure CT of the chest trace left effusion cholelithiasis airspace opacity left lower lung consider for aspiration findings new from 04/22/2024 patient has been start ed on Levaquin infectious disease was consulted regarding left lower extremity draining wound and management of antibiotic therapy Review of Systems Positive point and negatives has been mentioned in the HPI, complete review of systems was performed and all other systems are negative Past Medical History Past Medical History: Asthma, Coronary Artery Disease (CAD), Cancer, COPD, Hyperlipidemia, Hypertension, Osteoarthritis (OA), Pneumonia, Respiratory Disorder Additional Past Medical History / Comment(s): Adenocarcinoma of the right upper lobe, history of recurrent right-sided pleural effusion requiring multiple thoracentesis, coronary artery disease, chronic hypoxic respiratory failure maintained on O2, 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 History of Any Multi-Drug Resistant Organisms: None Reported Past Surgical History: Appendectomy, Bowel Resection, Ear Surgery, Heart Catheterization With Stent, Hernia Repair, Hysterectomy, Tonsillectomy Additional Past Surgical History / Comment(s): Colon/bowel surgery done in her 30's-21 inches removed, bilateral cataracts removed, bilateral laser eye surgery, hemorroidectomy, hiatal hernia, robotic rt upper lobectomy w/mediastinal lymph node dissection, 1 cardiac stent Past Anesthesia/Blood Transfusion Reactions: No Reported Reaction Additional Past Anesthesia/Blood Transfusion Reaction / Comm: no hx blood transfusion Date of Last Stent Placement:: 01/01/18 Past Psychological History: No Psychological Hx Reported Additional Psychological History / Comment(s): . Smoking Status: Former smoker Past Alcohol Use History: None Reported Additional Past Alcohol Use History / Comment(s): quit smoking 07/18/17 smoked since age 20 1 1/2ppd Past Drug Use History: None Reported - Past Family History Father Family Medical History: CVA/TIA, Myocardial Infarction ([place]) Mother Family Medical History: Cancer Additional Family Medical History / Comment(s): bowel cancer Medications and Allergies Home Medications Medication Instructions Recorded Confirmed Type ALPRAZolam [Xanax] 0.5 mg PO TID PRN 03/19/14 05/02/24 History Montelukast [Singulair] 10 mg PO DAILY 09/15/17 05/02/24 History Famotidine [Pepcid] 40 mg PO BID 04/27/21 05/02/24 History Budesonide [Pulmicort] 0.5 mg INHALATION RT-BID 05/24/23 05/02/24 History Ipratropium-Albuterol Nebulize 3 ml INHALATION RT-QID 05/24/23 05/02/24 History [Duoneb 0.5 mg-3 mg/3 ml Soln] Loratadine [Claritin] 10 mg PO DAILY 05/24/23 05/02/24 History Potassium Chloride ER [K-Dur 20] 20 meq PO DAILY 05/24/23 05/02/24 History Atorvastatin [Lipitor] 40 mg PO DAILY 90 Days #90 tab 10/13/23 05/02/24 Rx Metoprolol Succinate (ER) [Toprol 25 mg PO DAILY 90 Days #90 tab 10/13/23 05/02/24 Rx XL] HYDROcodone/APAP 10-325MG [Home 1 tab PO TID PRN 04/22/24 05/02/24 History 10-325] Aspirin 81 mg PO DAILY tab 04/29/24 05/02/24 Rx Bumetanide [BUMEX] 1 mg PO DAILY 90 Days #90 tab 04/29/24 05/02/24 Rx Lactulose [Cephulac] 20 gm PO TID 30 Days #90 ml 04/29/24 05/02/24 Rx Allergies Allergy/AdvReac Type Severity Reaction Status Date / Time Penicillins Allergy Rash/Hives Verified 05/02/24 18:04 Physical Exam Vitals: Vital Signs Temp Pulse Pulse Resp BP BP Pulse Ox 05/03/24 09:53 100 05/03/24 09:42 100 05/03/24 07:01 97.5 F L 96 16 146/80 99 05/03/24 01:30 97.4 F L 97 19 147/63 100 05/03/24 01:00 96 16 146/68 100 05/03/24 00:05 93 34 H 146/68 98 05/03/24 00:00 101 H 20 130/74 98 05/02/24 23:00 96 18 127/67 100 05/02/24 20:37 103 H 05/02/24 20:28 103 H 05/02/24 20:02 97.7 F 105 H 28 H 109/63 99 05/02/24 17:08 22 05/02/24 16:57 98.0 F 110 H 22 117/66 98 Intake and Output 05/02/24 05/03/24 05/03/24 22:59 06:59 14:59 Output Total 50 Balance -50 Output: Urine 50 Other: Voiding Method External Catheter Weight 81.647 kg 81.647 kg GENERAL DESCRIPTION: Elderly female up in the chair, no distress. No tachypnea or accessory muscle of respiration use. HEENT: Shows Pallor , no scleral icterus. Oral mucous membrane is dry. No pharyngeal erythema or thrush NECK: Trachea central, no thyromegaly. LUNGS: Unlabored breathing. Decreased breath sound the base HEART: S1, S2, regular rate and rhythm. No loud murmur ABDOMEN: Soft, no tenderness , guarding or rigidity, no organomegaly EXTREMITIES: Patient did have wound to the left lateral leg with a foul-smelling drainage cultures were obtained SKIN: No rash, no masses palpable. NEUROLOGICAL: The patient is awake, alert, oriented x3, mood and affect normal. Results CBC & Chem 7: 05/02/24 17:53 05/02/24 17:53 Labs: Abnormal Lab Results - Last 24 Hours (Table) 10/17/24 10/17/24 10/17/24 Range/Units 17:53 17:53 17:53 WBC 12.4 H (3.8-10.6) k/uL RBC 3.54 L (3.80-5.40) m/uL Hgb 10.2 L (11.4-16.0) gm/dL Hct 32.0 L (34.0-46.0) % Neutrophils # 10.1 H (1.3-7.7) k/uL APTT 20.5 L (22.0-30.0) sec Sodium 136 L (137-145) mmol/L Chloride 96 L (98-107) mmol/L Carbon Dioxide 37 H (22-30) mmol/L BUN 50 H (7-17) mg/dL Creatinine 1.08 H (0.52-1.04) mg/dL Glucose 185 H (74-99) mg/dL Magnesium 2.5 H (1.6-2.3) mg/dL Total Protein 5.6 L (6.3-8.2) g/dL Albumin 3.1 L (3.5-5.0) g/dL Assessment and Plan (1) Leg wound, left Current Visit: Yes Status: Acute Code(s): S81.802A - UNSPECIFIED OPEN WOUND, LEFT LOWER LEG, INITIAL ENCOUNTER SNOMED Code(s): 54487369143617264 (2) Left leg cellulitis Current Visit: Yes Status: Acute Code(s): L03.116 - CELLULITIS OF LEFT LOWER LIMB SNOMED Code(s): 54240959817514952 (3) Penicillin allergy Current Visit: Yes Status: Acute Code(s): Z88.0 - ALLERGY STATUS TO PENICILLIN SNOMED Code(s): 52584937 Plan: 1patient presenting to the hospital with increasing weakness and debility and this patient also have a wound to the left lower extremity started as a trauma 2 weeks ago with progressive worsening patient was noticed to have a significantly wound with a foul-smelling concerning for wound infection possibly gram- negative/anaerobes 2-patient did have left-sided effusion, clinical not behaving as pneumonia did have normal procalcitonin discontinue Levaquin 3-penicillin allergy that will remain the number of antibiotics safe to use 4-local culture has been obtained both aerobic and anaerobic that will guide further antibiotic therapy 5-[facility] followed by moist dressing change daily 6-we will start the patient on cefepime and Flagyl pending culture finalization We will follow on clinical condition and cultures to further adjust medication if needed Thank you for this consultation we will follow the patient along with you Dictation was produced using [employer] dictation software. please excuse any grammatical, word or spelling errors. Time with Patient: Greater than 30
[2024-05-04 03:26] LABS: % Iron Saturation 12.84 (12.00-45.00)
--- NOTE | 2024-05-04 04:44 | P.PN ---
Subjective Progress Note Date: 05/03/[address] Saul This is an 84-year-old female who was recently admitted after just being di scharged a few days prior to home with home care. Patient returned home felt weak with continued shortness of breath and unable to care for herself came back to the hospital for further evaluation and possible ECF. It was recommended on previous admission per medical record that patient go to ECF for continued PT/OT therapy although patient refused. Patient have significant past medical history of asthma/COPD, adenocarcinoma of the right lung with history of recurrent pleural effusions and has undergone multiple thoracentesis and most recently on last admission and cytology was positive for squamous cell carcinoma, hypertension, hyperlipidemia, osteoarthritis, obesity. Oncology along with pulmonary has been consulted and will consult infectious disease as patient was reporting some left ankle and foot pain and nursing staff noted foul drainage and foul smell from the left ankle wound. Patient was initially started on Levaquin and will await and appreciate input and recommendations from infectious disease. Oncology also consulted and pending. Patient is currently a full code and CODE STATUS needs to be addressed given significant comorbidities. Patient is currently afebrile with no reports of worsening shortness of breath. Patient is dyspneic in conversation on exam and noted to be debilitated and extremely weak. Review of systems: Constitutional: No reports of fatigue, fever, or chills Cardiovascular: No reports of chest pain or palpitations Respiratory: reports of continued shortness of breath GI: No reports of nausea, no reports of vomiting, no diarrhea : No reports of dysuria or retention Neurovascular: reports of generalized weakness, left ankle and leg pain All medications have been reviewed PHYSICAL EXAMINATION: GENERAL: The patient is alert and oriented x3, Well developed, elderly appearing, ill-appearing, obese HEENT: Pupils are round and equally reacting to light. EOMI. no scleral icterus. No conjunctival pallor. Normocephalic, atraumatic. No pharyngeal erythema. No thyromegaly. CARDIOVASCULAR: S1 and S2 muffled PULMONARY: diminished breath sounds bilaterally with some coarse scattered rhonchi noted. ABDOMEN: soft. Nontender on exam. obese. non-distended, normoactive bowel sounds. No palpable organomegaly. MUSCULOSKELETAL: No joint swelling or deformity. EXTREMITIES: No cyanosis, clubbing, or pedal edema. Left ankle wound with dressing noted currently that is dry and intact NEUROLOGICAL: Gross neurological examination did not reveal any focal deficits. Diffuse weakness SKIN: No rashes. Pale, ashen appearance Assessment: Shortness of breath, multifactorial likely secondary to squamous cell carcinoma Severe chronic obstructive pulmonary disease, not in exacerbation Chronic hypoxic respiratory failure secondary to above History of congestive heart failure with diastolic dysfunction, not in exacerbation History of pleural effusions, recurrent, most recent thoracentesis last week and cytology was positive for squamous cell carcinoma Left leg wound with concerns of surrounding cellulitis, present on admission Generalized weakness Obesity with a body mass index of 32.9 GI prophylaxis DVT prophylaxis Full code Plan: Recommend to continue with current medications and management with multiple consultations following. Oncology consulted and pending. Pulmonary following initially starting the patient on Levaquin with concerns of aspiration pneumonia although suspicion for pneumonia is low, patient is high risk and would recommend aspiration precautions with the head of the bed elevated 30 to 45 degrees at all times Recommend PT/OT therapy evaluation for possible ECF. Patient was just discharged 2 days prior and noted to be extremely weak unable to care for herself CODE STATUS is currently full code although given significant comorbidities and diagnosed with squamous cell carcinoma on last week's pleural effusion thoracentesis, need to consider possible no code and possibly hospice. Patient is not ready at this time for hospice per patient. Oncology following undergoing further workup Infectious disease consulted for left ankle wound with foul-smelling discharge noted and concerns for possible surrounding cellulitis. Antibiotics adjusted to cefepime and Flagyl and cultures have been obtained and pending Case management social work consult for discharge planning The impression and plan of care has been dictated by Marcia Zhao, nurse practitioner as directed. Dr. Evette MD I have performed a history and examination and MDM of this patient, discussed the same with the dictator, and agree with the dictator's assessment and plan as written ,documented as a scribe. Based on total visit time, I have performed more than 50% of the visit. Any additional findings or plans will be noted. Objective - Vital Signs Vital signs: Vital Signs Temp 97.5 F L 05/03/24 07:01 Pulse 96 05/03/24 07:01 Resp 16 05/03/24 07:01 BP 146/80 05/03/24 07:01 Pulse Ox 99 05/03/24 07:01 FiO2 Intake & Output 05/02/24 05/03/24 05/03/24 18:59 06:59 18:59 Output Total 50 Balance -50 Weight 81.647 kg 81.647 kg Output: Urine 50 Other: Voiding Method External Catheter - Labs CBC & Chem 7: 05/02/24 17:53 05/02/24 17:53 Labs: Abnormal Lab Results - Last 24 Hours (Table) 05/02/24 05/02/24 05/02/24 Range/Units 17:53 17:53 17:53 WBC 12.4 H (3.8-10.6) k/uL RBC 3.54 L (3.80-5.40) m/uL Hgb 10.2 L (11.4-16.0) gm/dL Hct 32.0 L (34.0-46.0) % Neutrophils # 10.1 H (1.3-7.7) k/uL APTT 20.5 L (22.0-30.0) sec Sodium 136 L (137-145) mmol/L Chloride 96 L (98-107) mmol/L Carbon Dioxide 37 H (22-30) mmol/L BUN 50 H (7-17) mg/dL Creatinine 1.08 H (0.52-1.04) mg/dL Glucose 185 H (74-99) mg/dL Magnesium 2.5 H (1.6-2.3) mg/dL Total Protein 5.6 L (6.3-8.2) g/dL Albumin 3.1 L (3.5-5.0) g/dL
[2024-05-04 10:15] LABS: Basophils # (A) 0.02 X 10*3/uL (0.00-0.10); Basophils % (A) 0.2 %; Eosinophils # (A) 0.23 X 10*3/uL (0.04-0.35); Eosinophils % (A) 2.2 %; HCT 30.1 % (37.2-46.3); HGB 9.2 g/dL (12.0-15.0); Lymphocytes # (A) 1.18 X 10*3/uL (0.90-5.00); Lymphocytes % (A) 11.1 %; MCH 28.5 pg (27.0-32.0); MCHC 30.6 g/dL (32.0-37.0); MCV 93.2 FL (80.0-97.0); Monocytes # (A) 0.73 X 10*3/uL (0.20-1.00); Monocytes % (A) 6.9 %; NRBC Per 100 WBC 0 X 10*3/uL (0.00-0.01); Neutrophils # (A) 8.25 X 10*3/uL (1.80-7.70); Neutrophils % (A) 77.7 %; Platelet Count 155 X 10*3/uL (140-440); RBC 3.23 X 10*6/uL (4.10-5.20); RDW 15.9 % (11.5-14.5); WBC 10.61 X 10*3/uL (4.50-10.00)
[2024-05-04 10:33] LABS: BUN/Creat Ratio 24.85 Ratio (12.00-20.00); Blood Urea Nitrogen 32.3 mg/dL (9.0-27.0); Calcium 8.5 mg/dL (8.7-10.3); Carbon Dioxide 31.5 mmol/L (21.6-31.8); Chloride 96 mmol/L (96-109); Glucose 140 mg/dL (70-110); Potassium 5.2 mmol/L (3.5-5.5); Sodium 138 mmol/L (135-145)
--- NOTE | 2024-05-04 13:57 | P.PN ---
Subjective Progress Note Date: 05/04/[address] Saul This is an 84-year-old female who was recently admitted after just being dis charged a few days prior to home with home care. Patient returned home felt weak with continued shortness of breath and unable to care for herself came back to the hospital for further evaluation and possible ECF. It was recommended on previous admission per medical record that patient go to ECF for continued PT/OT therapy although patient refused. Patient have significant past medical history of asthma/COPD, adenocarcinoma of the right lung with history of recurrent pleural effusions and has undergone multiple thoracentesis and most recently on last admission and cytology was positive for squamous cell carcinoma, hypertension, hyperlipidemia, osteoarthritis, obesity. Oncology along with pulmonary has been consulted and will consult infectious disease as patient was reporting some left ankle and foot pain and nursing staff noted foul drainage and foul smell from the left ankle wound. Patient was initially started on Levaquin and will await and appreciate input and recommendations from infectious disease. Oncology also consulted and pending. Patient is currently a full code and CODE STATUS needs to be addressed given significant comorbidities. Patient is currently afebrile with no reports of worsening shortness of breath. Patient is dyspneic in conversation on exam and noted to be debilitated and extremely weak. 05/04/2024 Patient is evaluated today in follow-up on the medical floor. She has no acute complaints today she is resting comfortably. She continues on IV cefepime for the left ankle wound and local wound care has been in [facility] with [facility]. Patient reporting that she does not want any further thoracentesis although not currently indicated at this time. Patient had an abdominal pelvis CT completed for staging for the malignant pleural effusion. 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 There is cholelithiasis and a small left pleural effusion with adjacent compressive atelectasis underlying neoplasm is not currently excluded. Noted the patient does have known lung cancer. Blood work today reveals a white blood cell count of 10.61, hemoglobin of 9.2. Her sodium level was 138, potassium 5.2, BUN of 33.3 and a creatinine of 1.3. Iron level is low at 43 however her TIBC percent saturation ferritin level and transferrin are all within normal limits. Vitamin B12 is 471. Review of systems: Constitutional: No reports of fatigue, fever, or chills Cardiovascular: No reports of chest pain or palpitations Respiratory: reports of continued shortness of breath GI: No reports of nausea, no reports of vomiting, no diarrhea : No reports of dysuria or retention Neurovascular: reports of generalized weakness, left ankle and leg pain All medications have been reviewed PHYSICAL EXAMINATION: GENERAL: The patient is alert and oriented x3, Well developed, elderly appearing, ill-appearing, obese HEENT: Pupils are round and equally reacting to light. EOMI. no scleral icterus. No conjunctival pallor. Normocephalic, atraumatic. No pharyngeal erythema. No thyromegaly. CARDIOVASCULAR: S1 and S2 muffled PULMONARY: diminished breath sounds bilaterally with some coarse scattered rhonchi noted. ABDOMEN: soft. Nontender on exam. obese. non-distended, normoactive bowel sounds. No palpable organomegaly. MUSCULOSKELETAL: No joint swelling or deformity. EXTREMITIES: No cyanosis, clubbing, or pedal edema. Left ankle wound with dressing noted currently that is dry and intact NEUROLOGICAL: Gross neurological examination did not reveal any focal deficits. Diffuse weakness SKIN: No rashes. Pale, ashen appearance Assessment: Shortness of breath, multifactorial likely secondary to squamous cell carcinoma Severe chronic obstructive pulmonary disease, not in exacerbation Chronic hypoxic respiratory failure secondary to above History of congestive heart failure with diastolic dysfunction, not in exa cerbation History of pleural effusions, recurrent, most recent thoracentesis last week and cytology was positive for squamous cell carcinoma Left leg wound with concerns of surrounding cellulitis, present on admission Generalized weakness Obesity with a body mass index of 32.9 GI prophylaxis DVT prophylaxis Full code Plan: Recommend to continue with current medications and management with multiple consultations following. Oncology consulted and pending. Pulmonary following initially starting the patient on Levaquin with concerns of aspiration pneumonia although suspicion for pneumonia is low, patient is high risk and would recommend aspiration precautions with the head of the bed elevated 30 to 45 degrees at all times Recommend PT/OT therapy evaluation for possible ECF. Patient was just discharged 2 days prior and noted to be extremely weak unable to care for herself patient will need subacute rehab on discharge referrals were placed to [facility]. CODE STATUS is currently full code although given significant comorbidities and diagnosed with squamous cell carcinoma on last week's pleural effusion thoracentesis, need to consider possible no code and possibly hospice. Patient is not ready at this time for hospice per patient. Oncology following undergoing further workup patient will undergo brain MRI scheduled for today at 1 PM as well as whole-body bone scan. Patient reports that she would like to be updated when these testings are completed of the results. Infectious disease consulted for left ankle wound with foul-smelling discharge noted and concerns for possible surrounding cellulitis. Antibiotics adjusted to cefepime and Flagyl and cultures have been obtained and pending wound care in place with [facility] to the left ankle and to change daily. Case management social work consult for discharge planning The impression and plan of care has been dictated by Mira Saavedra Nurse Practitioner as directed. Dr. Evette MD I have performed a history and physical examination and medical decision making of this patient, discussed the same with the dictator, and agree with the dictators assessment and plan as written, documented as a scribe. Based on total visit time, I have performed more than 50% of this visit. Objective - Vital Signs Vital signs: Vital Signs Temp 98.0 F 05/04/24 06:57 Pulse 102 H 05/04/24 08:11 Resp 19 05/04/24 06:57 BP 103/66 05/04/24 06:57 Pulse Ox 97 05/04/24 08:01 FiO2 Intake & Output 05/03/24 05/04/24 05/04/24 18:59 06:59 18:59 Output Total 200 800 Balance -200 -800 Output: Urine 200 800 Other: Voiding Method External Catheter External Catheter # Voids 1 # Bowel Movements 1 - Labs CBC & Chem 7: 05/04/24 04:04 05/04/24 04:04 Labs: Abnormal Lab Results - Last 24 Hours (Table) 05/03/24 05/04/24 Range/Units Unknown 04:04 WBC 10.61 H (4.50-10.00) X 10*3/uL RBC 3.23 L (4.10-5.20) X 10*6/uL Hgb 9.2 L (12.0-15.0) g/dL Hct 30.1 L (37.2-46.3) % MCHC 30.6 L (32.0-37.0) g/dL RDW 15.9 H (11.5-14.5) % MPV 13.0 H (9.5-12.2) FL Immature Gran # 0.20 H (0.00-0.04) X 10*3/uL Neutrophils # 8.25 H (1.80-7.70) X 10*3/uL Iron 43 L (50-170) UG/DL Assessment and Plan Time with Patient: Less than 30
--- NOTE | 2024-05-04 14:08 | MR ---
EXAMINATION TYPE: MR brain wo/w con DATE OF EXAM: 05/04/2024 COMPARISON: None HISTORY: Lung cancer, evaluate for metastatic disease. TECHNIQUE: Multiplanar, multisequence images of the brain and brainstem is performed without and with IV contras t, utilizing 8 mL intravenous Gadavist . FINDINGS: Diffusion weighted images demonstrate no evidence of a recent infarct or other diffusion ab normality. There is no extra-axial fluid collection or significant white matter signal abnormality. The ventricular system and cisternal spaces are normal in size and appearance. The brain volume is age appropriate. There is moderate abnormal increased signal intensity in the periventricular white m atter consistent with chronic ischemic white matter demyelination. Midline structures demonstrate normal morphology. The craniocervical junction appears within normal limits. Post contrast images demonstrate no abnormal enhancement. The dural venous sinuses appear pa tent. The visualized sinuses are clear and the globes are intact. IMPRESSION: 1. Mild generalized atrophy and moderate chronic ischemic white matter changes.. 2. No mass, mass effect or pathological enhancement. 3. No acute ischemic event. [facility], , 05/04/2024 2:05 PM
--- NOTE | 2024-05-04 22:24 | P.PN ---
Subjective Progress Note Date: 05/04/24 Principal diagnosis: Reason for follow-up is left lower extremity wound and cellulitis Patient is a 84-year-old female past medical history significant for hypertension hyperlipidemia COPD osteoarthritis pneumonia coronary artery disease in this patient presenting to the hospital for evaluation of worsening debility along with shortness of breath, patient also have a traumatic wound to the left lower extremity concerning for wound infection cellulitis prompted this consultation. On today's evaluation that is 05/04/2024 the patient continues to be afebrile, the patient is breathing comfortably on room air patient denies having any chest pain cough is decreased intensity not bringing up any sputum no nausea no vomiting abdominal pain or diarrhea and denies any worsening pain to the left lower extremity. Patient white count is down to 10.61 creatinine is 1.3 cultures are pending Objective - Vital Signs Vital signs: Vital Signs Temp 98.0 F 05/04/24 06:57 Pulse 102 H 05/04/24 12:07 Resp 19 05/04/24 09:00 BP 103/66 05/04/24 06:57 Pulse Ox 97 05/04/24 08:01 FiO2 Intake & Output 05/03/24 05/04/24 05/04/24 18:59 06:59 18:59 Output Total 200 800 Balance -200 -800 Output: Urine 200 800 Other: Voiding Method External Catheter External Catheter Bedside Commode # Voids 1 # Bowel Movements 1 - Exam GENERAL DESCRIPTION: An elderly female lying in bed in no distress RESPIRATORY SYSTEM: Unlabored breathing , decreased breath sounds at bases HEART: S1 S2 regular rate and rhythm , ABDOMEN: Soft , no tenderness EXTREMITIES: Left leg wound is currently dressed - Labs CBC & Chem 7: 05/04/24 04:04 05/04/24 04:04 Labs: Abnormal Lab Results - Last 24 Hours (Table) 05/03/24 05/04/24 05/04/24 Range/Units Unknown 04:04 04:04 WBC 10.61 H (4.50-10.00) X 10*3/uL RBC 3.23 L (4.10-5.20) X 10*6/uL Hgb 9.2 L (12.0-15.0) g/dL Hct 30.1 L (37.2-46.3) % MCHC 30.6 L (32.0-37.0) g/dL RDW 15.9 H (11.5-14.5) % MPV 13.0 H (9.5-12.2) FL Immature Gran # 0.20 H (0.00-0.04) X 10*3/uL Neutrophils # 8.25 H (1.80-7.70) X 10*3/uL BUN 32.3 H (9.0-27.0) mg/dL Est GFR (CKD-EPI) 41 L (>=60) BUN/Creatinine Ratio 24.85 H (12.00-20.00) Ratio Glucose 140 H (70-110) mg/dL Calcium 8.5 L (8.7-10.3) mg/dL Iron 43 L (50-170) UG/DL Assessment and Plan (1) Leg wound, left Current Visit: Yes Status: Acute Code(s): S81.802A - UNSPECIFIED OPEN WOUND, LEFT LOWER LEG, INITIAL ENCOUNTER SNOMED Code(s): 50565991472174597 (2) Left leg cellulitis Current Visit: Yes Status: Acute Code(s): L03.116 - CELLULITIS OF LEFT LOWER LIMB SNOMED Code(s): 79534754266272986 (3) Penicillin allergy Current Visit: Yes Status: Acute Code(s): Z88.0 - ALLERGY STATUS TO PENICILLIN SNOMED Code(s): 81236877 Plan: 1patient presenting to the hospital with increasing weakness and debility and this patient also have a wound to the left lower extremity started as a trauma 2 weeks ago with progressive worsening patient was noticed to have a significantly wound with a foul-smelling concerning for wound infection possibly gram-negative/anaerobes 2-patient did have left-sided effusion, clinical not behaving as pneumonia did have normal procalcitonin, her Levaquin was discontinued 3-penicillin allergy that will remain the number of antibiotics safe to use 4-local culture has been obtained both aerobic and anaerobic which are currently pending 5-local wound care with the [facility] followed by moist dressing change daily 6-patient to continue with cefepime and Flagyl pending culture finalization Family at the bedside questions answered, Dictation was produced using [employer] software. please excuse any grammatical, word or spelling errors.
[2024-05-05 07:29] LABS: African American GFR (CKD) 42 (>60 ml/min/1.73 sqM); Non-African American GFR(CKD) 36 (>60 ml/min/1.73 sqM)
[2024-05-05] MEDS: FAMOTIDINE 20 MG TAB PO SCH (08:50)
[2024-05-05] MEDS: CEFEPIME 1 GM in SODIUM CHLORIDE 0.9% 50 ML IVPB SCH (21:24)
--- NOTE | 2024-05-05 21:57 | P.PN ---
Subjective Progress Note Date: 05/05/24 Principal diagnosis: Reason for follow-up is left lower extremity wound and cellulitis Patient is a 84-year-old female past medical history significant for hypertension hyperlipidemia COPD osteoarthritis pneumonia coronary artery disease in this patient presenting to the hospital for evaluation of worsening debility along with shortness of breath, patient also have a traumatic wound to the left lower extremity concerning for wound infection cellulitis prompted this consultation. On today's evaluation that is 05/05/2024, the patient continues to be afebrile, the patient is on 2 L nasal cannula oxygen and breathing comfortably, the Pt denies having any chest pain or cough, the patient denies having any abdominal pain no vomiting or any diarrhea, pain to the left lower leg has Decreased in intensity. No CBC was done today she did have a creatinine 1.36 culture with Streptococcus anginosus Objective - Vital Signs Vital signs: Vital Signs Temp 97.5 F L 05/05/24 07:06 Pulse 92 05/05/24 11:40 Resp 18 05/05/24 08:50 BP 131/78 05/05/24 07:06 Pulse Ox 96 05/05/24 08:20 FiO2 Intake & Output 05/04/24 05/05/24 05/05/24 18:59 06:59 18:59 Output Total 350 200 Balance -350 -200 Output: Urine 350 200 Other: Voiding Method Bedside Commode External Catheter External Catheter - Exam GENERAL DESCRIPTION: An elderly female lying in bed in no distress RESPIRATORY SYSTEM: Unlabored breathing , decreased breath sounds at bases HEART: S1 S2 regular rate and rhythm , ABDOMEN: Soft , no tenderness EXTREMITIES: Left leg wound is currently dressed - Labs CBC & Chem 7: 05/04/24 04:04 05/05/24 06:55 Labs: Abnormal Lab Results - Last 24 Hours (Table) 05/05/24 Range/Units 06:55 Creatinine 1.36 H (0.52-1.04) mg/dL Microbiology - Last 24 Hours (Table) 05/03/24 12:35 Gram Stain - Preliminary Ankle - Left Wound Culture - Preliminary Streptococcus anginosus Assessment and Plan (1) Leg wound, left Current Visit: Yes Status: Acute Code(s): S81.802A - UNSPECIFIED OPEN WOUND, LEFT LOWER LEG, INITIAL ENCOUNTER SNOMED Code(s): 07093968038012673 (2) Left leg cellulitis Current Visit: Yes Status: Acute Code(s): L03.116 - CELLULITIS OF LEFT LOWER LIMB SNOMED Code(s): 82930373553005757 (3) Penicillin allergy Current Visit: Yes Status: Acute Code(s): Z88.0 - ALLERGY STATUS TO PENICILLIN SNOMED Code(s): 90759573 Plan: 1patient presenting to the hospital with increasing weakness and debility and this patient also have a wound to the left lower extremity started as a trauma 2 weeks ago with progressive worsening patient was noticed to have a significantly wound with a foul-smelling concerning for wound infection possibly gram- negative/anaerobes 2-patient did have left-sided effusion, clinical not behaving as pneumonia did have normal procalcitonin, her Levaquin was discontinued 3-penicillin allergy that will remain the number of antibiotics safe to use 4-local culture has been obtained which is currently growing Streptococcus anginosus 5-[facility] followed by moist dressing change daily 6-we will discontinue cefepime and start the patient on Rocephin and continue Flagyl pending anaerobe culture finalization Dictation was produced using [employer] dictation software. please excuse any grammatical, word or spelling errors. Time with Patient: Less than 30
--- NOTE | 2024-05-06 05:45 | P.PN ---
Subjective Progress Note Date: 05/05/24 This is an 84-year-old female who was recently admitted after just being discharged a few days prior to home with home care. Patient returned home felt weak with continued shortness of breath and unable to care for herself came back to the hospital for further evaluation and possible ECF. It was recommended on previous admission per medical record that patient go to ECF for continued PT/OT therapy although patient refused. Patient have significant past medical history of asthma/COPD, adenocarcinoma of the right lung with history of recurrent pleural effusions and has undergone multiple thoracentesis and most recently on last admission and cytology was positive for squamous cell carcinoma, hyp ertension, hyperlipidemia, osteoarthritis, obesity. Oncology along with pulmonary has been consulted and will consult infectious disease as patient was reporting some left ankle and foot pain and nursing staff noted foul drainage and foul smell from the left ankle wound. Patient was initially started on Levaquin and will await and appreciate input and recommendations from infectious disease. Oncology also consulted and pending. Patient is currently a full code and CODE STATUS needs to be addressed given significant comorbidities. Patient is currently afebrile with no reports of worsening shortness of breath. Patient is dyspneic in conversation on exam and noted to be debilitated and extremely weak. 05/04/2024 Patient is evaluated today in follow-up on the medical floor. She has no acute complaints today she is resting comfortably. She continues on IV cefepime for the left ankle wound and local wound care has been in place with [facility]. Patient reporting that she does not want any further thoracentesis although not currently indicated at this time. Patient had an abdominal pelvis CT completed for staging for the malignant pleural effusion. 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 There is cholelithiasis and a small left pleural effusion with adjacent compressive atelectasis underlying neoplasm is not currently excluded. Noted the patient does have known lung cancer. Blood work today reveals a white blood cell count of 10.61, hemoglobin of 9.2. Her sodium level was 138, potassium 5.2, BUN of 33.3 and a creatinine of 1.3. Iron level is low at 43 however her TIBC percent saturation ferritin level and transferrin are all within normal limits. Vitamin B12 is 471. 05/05/2024 Patient is seen in follow-up today with no acute overnight issues noted. Patient is continued on IV antibiotics and culture showing Streptococcus anginosus and antibiotics being adjusted per infectious disease. Continue local wound care. Patient underwent MRI of the brain which was negative and scheduled to undergo bone scan which will take place on 05/06/2024. Will need PT/OT therapy evaluation and case management to discuss possible ECF on discharge. Review of systems: Constitutional: No reports of fatigue, fever, or chills Cardiovascular: No reports of chest pain or palpitations Respiratory: reports of continued shortness of breath although feels improved from admission GI: No reports of nausea, no reports of vomiting, no diarrhea : No reports of dysuria or retention Neurovascular: reports of generalized weakness, left ankle and leg pain All medications have been reviewed PHYSICAL EXAMINATION: GENERAL: The patient is alert and oriented x3, Well developed, elderly appearing, ill-appearing, obese HEENT: Pupils are round and equally reacting to light. EOMI. no scleral icterus. No conjunctival pallor. Normocephalic, atraumatic. No pharyngeal erythema. No thyromegaly. CARDIOVASCULAR: S1 and S2 muffled PULMONARY: diminished breath sounds bilaterally with some coarse scattered rhonchi noted. ABDOMEN: soft. Nontender on exam. obese. non-distended, normoactive bowel sounds. No palpable organomegaly. MUSCULOSKELETAL: No joint swelling or deformity. EXTREMITIES: No cyanosis, clubbing, or pedal edema. Left ankle wound with dressing noted currently that is dry and intact NEUROLOGICAL: Gross neurological examination did not reveal any focal deficits. Diffuse weakness SKIN: No rashes. Pale, ashen appearance Assessment: Shortness of breath, multifactorial likely secondary to squamous cell carcinoma as well as pleural effusions Severe chronic obstructive pulmonary disease, not in exacerbation Chronic hypoxic respiratory failure secondary to above History of congestive heart failure with diastolic dysfunction, not in exacerbation History of pleural effusions, recurrent, most recent thoracentesis last week and cytology was positive for squamous cell carcinoma Left leg wound with concerns of surrounding cellulitis, present on admission, cultures growing Streptococcus anginosus Generalized weakness Obesity with a body mass index of 32.9 GI prophylaxis DVT prophylaxis Full code Plan: Recommend to continue with current medications and management with multiple consultations following. Oncology following with further testing ordered and pending. Pulmonary following initially starting the patient on Levaquin with concerns of aspiration pneumonia although suspicion for pneumonia is low, patient is high risk and would recommend aspiration precautions with the head of the bed elevated 30 to 45 degrees at all times Recommend PT/OT therapy evaluation for possible ECF. Patient was just discharged 2 days prior and noted to be extremely weak unable to care for herself patient will need subacute rehab on discharge referrals were placed to [facility]. CODE STATUS is currently full code although given significant comorbidities and diagnosed with squamous cell carcinoma on last week's pleural effusion th oracentesis, need to consider possible no code and possibly hospice. Patient is not ready at this time for hospice per patient. Oncology following undergoing further workup patient underwent brain MRI which was negative. Scheduled to undergo bone scan on 05/06/2024. Patient reports that she would like to be updated when these testings are completed of the results. Infectious disease following for left ankle wound with foul-smelling discharge noted and concerns for possible surrounding cellulitis. Antibiotics being adjusted as culture showing Streptococcus anginosus and will continue with local wound care with Med[facility] to the left ankle and dressing changes. Case management social work consult for discharge planning The impression and plan of care has been dictated by Marcia Zhao, Nurse Practitioner as directed. Dr. Evette MD I have performed a history and physical examination and medical decision making of this patient, discussed the same with the dictator, and agree with the dictators assessment and plan as written, documented as a scribe. Based on total visit time, I have performed more than 50% of this visit. Objective - Vital Signs Vital signs: Vital Signs Temp 97.5 F L 05/05/24 07:06 Pulse 100 05/05/24 08:32 Resp 21 05/05/24 07:06 BP 131/78 05/05/24 07:06 Pulse Ox 96 05/05/24 08:20 FiO2 Intake & Output 05/04/24 05/05/24 05/05/24 18:59 06:59 18:59 Output Total 350 200 Balance -350 -200 Output: Urine 350 200 Other: Voiding Method Bedside Commode External Catheter - Labs CBC & Chem 7: 05/04/24 04:04 05/05/24 06:55 Labs: Abnormal Lab Results - Last 24 Hours (Table) 05/04/24 05/04/24 05/05/24 Range/Units 04:04 04:04 06:55 WBC 10.61 H (4.50-10.00) X 10*3/uL RBC 3.23 L (4.10-5.20) X 10*6/uL Hgb 9.2 L (12.0-15.0) g/dL Hct 30.1 L (37.2-46.3) % MCHC 30.6 L (32.0-37.0) g/dL RDW 15.9 H (11.5-14.5) % MPV 13.0 H (9.5-12.2) FL Immature Gran # 0.20 H (0.00-0.04) X 10*3/uL Neutrophils # 8.25 H (1.80-7.70) X 10*3/uL BUN 32.3 H (9.0-27.0) mg/dL Creatinine 1.36 H (0.52-1.04) mg/dL Est GFR (CKD-EPI) 41 L (>=60) BUN/Creatinine Ratio 24.85 H (12.00-20.00) Ratio Glucose 140 H (70-110) mg/dL Calcium 8.5 L (8.7-10.3) mg/dL Microbiology - Last 24 Hours (Table) 05/03/24 12:35 Gram Stain - Preliminary Ankle - Left Wound Culture - Preliminary Streptococcus anginosus
[2024-05-06 06:51] LABS: Anisocytosis Slight; Basophils % (A) 0 %; Eosinophils # (A) 0.3 k/uL (0-0.7); Eosinophils % (A) 3 %; HCT 28.9 % (34.0-46.0); HGB 9.5 gm/dL (11.4-16.0); Lymphocytes # (A) 0.7 k/uL (1.0-4.8); Lymphocytes % (A) 8 %; MCH 29.4 pg (25.0-35.0); MCV 89.2 fL (80.0-100.0); Mean Platelet Volume 10.7; Monocytes # (A) 0.6 k/uL (0-1.0); Monocytes % (A) 6 %; Neutrophils # (A) 7.5 k/uL (1.3-7.7); Neutrophils % (A) 82 %; Platelet Count 137 k/uL (150-450); RBC 3.24 m/uL (3.80-5.40); RDW 16.5 % (11.5-15.5); WBC 9.2 k/uL (3.8-10.6)
[2024-05-06 06:56] LABS: African American GFR (CKD) 39 (>60 ml/min/1.73 sqM); Anion Gap 4 mmol/L; Blood Urea Nitrogen 31 mg/dL (7-17); Calcium 8.5 mg/dL (8.4-10.2); Carbon Dioxide 31 mmol/L (22-30); Chloride 98 mmol/L (98-107); Glucose 130 mg/dL (74-99); Non-African American GFR(CKD) 34 (>60 ml/min/1.73 sqM); Sodium 133 mmol/L (137-145)
[2024-05-06 07:02] LABS: Potassium 4.4 mmol/L (3.5-5.1)
--- NOTE | 2024-05-06 12:56 | P.PN ---
Subjective Progress Note Date: 05/06/24 Principal diagnosis: Reason for follow-up is left lower extremity wound and cellulitis Patient is a 84-year-old female past medical history significant for hypertension hyperlipidemia COPD osteoarthritis pneumonia coronary artery disease in this patient presenting to the hospital for evaluation of worsening debility along with shortness of breath, patient also have a traumatic wound to the left lower extremity concerning for wound infection cellulitis prompted this consultation. On today's evaluation that is 05/06/2024, Patient is afebrile patient is currently on 2 L nasal cannula oxygen and denies having any shortness of breath, the patient denies any chest pain or cough, the patient denies any nausea vomiting did not have any abdominal pain and no diarrhea, pain to the left lower extremity is currently controlled. Patient working normalized to 9.2, creat is 1.44 local culture with Streptococcus anginosus Objective - Vital Signs Vital signs: Vital Signs Temp 97.4 F L 05/06/24 06:50 Pulse 99 05/06/24 11:50 Resp 17 05/06/24 06:50 BP 118/65 05/06/24 06:50 Pulse Ox 97 05/06/24 08:40 FiO2 Intake & Output 05/05/24 05/06/24 05/06/24 18:59 06:59 18:59 Intake Total 290 Output Total 600 Balance -600 290 Intake: Intake, IV Titration 290 Amount Cefepime 1 gm In Sodium 50 Chloride 0.9% 50 ml @ 12. 5 mls/hr IVPB Q12HR [facility] Rx#:[id number] Sodium Chloride 0.9% 1, 240 000 ml @ 20 mls/hr IV . Q24H [facility] Rx#:[id number] Output: Urine 600 Other: Voiding Method External Catheter External Catheter External Catheter # Voids 1 # Bowel Movements 1 - Exam Elderly female up in the chair in no distress No tachypnea or accessory muscle respiration use Unlabored breathing Left leg wound is currently dressed no drainage on the dressing - Labs CBC & Chem 7: 05/06/24 05:56 05/06/24 05:56 Labs: Abnormal Lab Results - Last 24 Hours (Table) 05/06/24 05/06/24 Range/Units 05:56 05:56 RBC 3.24 L (3.80-5.40) m/uL Hgb 9.5 L (11.4-16.0) gm/dL Hct 28.9 L (34.0-46.0) % RDW 16.5 H (11.5-15.5) % Plt Count 137 L (150-450) k/uL Lymphocytes # 0.7 L (1.0-4.8) k/uL Sodium 133 L (137-145) mmol/L Carbon Dioxide 31 H (22-30) mmol/L BUN 31 H (7-17) mg/dL Creatinine 1.44 H (0.52-1.04) mg/dL Glucose 130 H (74-99) mg/dL Microbiology - Last 24 Hours (Table) 05/03/24 12:35 Gram Stain - Final Ankle - Left Wound Culture - Final Streptococcus anginosus Assessment and Plan (1) Leg wound, left Current Visit: Yes Status: Acute Code(s): S81.802A - UNSPECIFIED OPEN WOUND, LEFT LOWER LEG, INITIAL ENCOUNTER SNOMED Code(s): 96812109212312221 (2) Left leg cellulitis Current Visit: Yes Status: Acute Code(s): L03.116 - CELLULITIS OF LEFT LOWER LIMB SNOMED Code(s): 08524343611486907 (3) Penicillin allergy Current Visit: Yes Status: Acute Code(s): Z88.0 - ALLERGY STATUS TO PENICILLIN SNOMED Code(s): 18332611 Plan: 1patient presenting to the hospital with increasing weakness and debility and this patient also have a wound to the left lower extremity started as a trauma 2 weeks ago with progressive worsening patient was noticed to have a significantly wound with a foul-smelling concerning for wound infection possibly gram-negative/anaerobes 2-patient did have left-sided effusion, clinical not behaving as pneumonia did have normal procalcitonin, her Levaquin was discontinued 3-penicillin allergy that will remain the number of antibiotics safe to use 4-local culture has been obtained which is currently growing Streptococcus anginosus 5-local wound care with the [facility] followed by moist dressing change daily 6-patient antibiotic has been adjusted to Rocephin and Flagyl pending anaerobe culture finalization with the discharge antibiotics hopefully oral Dictation was produced using [employer] software. please excuse any grammatical, word or spelling errors. Time with Patient: Less than 30
--- NOTE | 2024-05-06 16:00 | P.PN ---
Subjective Progress Note Date: 05/06/24 Principal diagnosis: Recurrent Sq cell lung carcinoma In f/u pt is in chair, reorts she is weak, planning for rehab. Son is at bedside, summarized hospitalization to date as well as recurrent malignancy Objective - Vital Signs Vital signs: Vital Signs Temp 97.6 F 05/06/24 12:59 Pulse 88 05/06/24 12:59 Resp 19 05/06/24 12:59 BP 111/61 05/06/24 12:59 Pulse Ox 99 05/06/24 12:59 FiO2 Intake & Output 05/05/24 05/06/24 05/06/24 18:59 06:59 18:59 Intake Total 290 Output Total 600 Balance -600 290 Intake: Intake, IV Titration 290 Amount Cefepime 1 gm In Sodium 50 Chloride 0.9% 50 ml @ 12. 5 mls/hr IVPB Q12HR [facility] Rx#:[id number] Sodium Chloride 0.9% 1, 240 000 ml @ 20 mls/hr IV . Q24H [facility] Rx#:[id number] Output: Urine 600 Other: Voiding Method External Catheter External Catheter External Catheter # Voids 1 1 # Bowel Movements 1 - Constitutional General appearance: Present: average body habitus, cooperative, mild distress - EENT Eyes: Present: anicteric sclerae, EOMI ENT: Present: hearing grossly normal - Respiratory Respiratory: bilateral: diminished - Peripheral edema leg Peripheral Edema: bilateral: Trace - Integumentary Integumentary Comment(s): LLE lateral calf wound-dressing C/D/I - Neurologic Neurologic: Present: CNII-XII intact - Musculoskeletal Musculoskeletal: Present: generalized weakness - Psychiatric Psychiatric: Present: A&O x's 3, appropriate affect, intact judgment & insight - Labs CBC & Chem 7: 05/06/24 05:56 05/06/24 05:56 Labs: Abnormal Lab Results - Last 24 Hours (Table) 05/06/24 05/06/24 Range/Units 05:56 05:56 RBC 3.24 L (3.80-5.40) m/uL Hgb 9.5 L (11.4-16.0) gm/dL Hct 28.9 L (34.0-46.0) % RDW 16.5 H (11.5-15.5) % Plt Count 137 L (150-450) k/uL Lymphocytes # 0.7 L (1.0-4.8) k/uL Sodium 133 L (137-145) mmol/L Carbon Dioxide 31 H (22-30) mmol/L BUN 31 H (7-17) mg/dL Creatinine 1.44 H (0.52-1.04) mg/dL Glucose 130 H (74-99) mg/dL Microbiology - Last 24 Hours (Table) 05/03/24 12:35 Gram Stain - Final Ankle - Left Wound Culture - Final Streptococcus anginosus Assessment and Plan (1) Squamous cell lung cancer Current Visit: Yes Status: Acute Priority: High Code(s): C34.90 - MALIGNANT NEOPLASM OF UNSP PART OF UNSP BRONCHUS OR LUNG SNOMED Code(s): 720193535 (2) Anemia Current Visit: Yes Status: Acute Priority: Medium Code(s): D64.9 - ANEMIA, UNSPECIFIED SNOMED Code(s): 609731344 (3) Malignant pleural effusion Current Visit: Yes Status: Acute Priority: High Code(s): J91.0 - MALIGNANT PLEURAL EFFUSION SNOMED Code(s): 664613824 Plan: Hx Sq cell lung carcinoma. Now presenting with malignant pleural effusion -History of Sq cell lung carcinoma, had LLL wedge resection in 02/2022 -Had left-sided thoracentesis 04/29/2024 with 500 mL removed. Cytology positive for rare metastatic non-small carcinoma consistent with squamous cell carcinoma. Upon review of EMR, patient had PET/CT on 12/25/2023 which showed mildly hypermetabolic small bilateral pulmonary nodules. Unfortunately, recurrent disease, pleural involvement -On admit CT chest without contrast revealed airspace opacities in the left lower lung with opacified airways, correlate for aspiration. Trace left pleural effusion with pulmonary edema. Levaquin started -Staging CT AP and brain MRI are neg for metastatic disease. Pending NM bone scan -NGS/PDL-1 requested on cytology -Pt and son verbalize understanding findings, pending studies and follow up after rehab. Normocytic anemia -Iron sat 12%, ferritin 130. Ok to give IV iron but, will wait until outpt because of acute wound infection. -Hgb currently stable at 9.5. Continue to monitor CBC
[2024-05-06] MEDS: ALPRAZolam 0.5 MG TAB PO PRN (22:43)
--- NOTE | 2024-05-07 05:10 | PN ---
PROGRESS NOTE SUBJECTIVE: This is an 84-year-old white female, remains on ceftriaxone. She is on Pepcid, Claritin, Toprol-XL, Solu-Medrol, Singulair, Xanax, Lipitor, aspirin, DuoNeb. The patient walked in the room. The patient's oxygen was off. We put a pack on her. She has had recurrent squamous cell lung cancer, planning for rehab. OBJECTIVE: VITAL SIGNS: She is saturating 95% on 2 L, blood pressure 109/62, temp 97.6, pulse 88, respiratory rate 16 to 18. LUNGS: Bilaterally diminished. HEENT: Normocephalic, atraumatic. LABORATORY DATA: BUN is 31, creatinine 1.44, sodium 133, hemoglobin is 9.5. ASSESSMENT: Pleural effusion, squamous cell lung cancer, anemia. CT scan reviewed and has basilar opacities in left lower lung, opacified airways, correlate for aspiration. Levaquin started. Brain MRI is negative for metastases. Pending MRI bone scan. Normocytic anemia. Continue current treatment. Prognosis guarded. Follow up in the next 24 to 48 hours. Please see further orders. MMODL / IJN: [id number] /
[2024-05-07 08:06] LABS: Methylmalonic Acid 0.63 umol/L (<0.40)
--- NOTE | 2024-05-07 22:44 | P.PN ---
Subjective Progress Note Date: 05/07/24 Principal diagnosis: Reason for follow-up is left lower extremity wound and cellulitis Patient is a 84-year-old female past medical history significant for hypertension hyperlipidemia COPD osteoarthritis pneumonia coronary artery disease in this patient presenting to the hospital for evaluation of worsening debility along with shortness of breath, patient also have a traumatic wound to the left lower extremity concerning for wound infection cellulitis prompted this consultation. On today's evaluation that is 05/07/2024, patient has been afebrile, patient is breathing comfortably and is currently on 2 L nasal cannula oxygen, patient denies having any significant cough no chest pain, patient denies nausea vomiting or diarrhea and no abdominal pain, pain to the left leg has decreased in intensity. Patient white normalized as of yesterday no CBC was done today culture with Streptococcus anginosus Objective - Vital Signs Vital signs: Vital Signs Temp 97.5 F L 05/07/24 12:32 Pulse 53 L 05/07/24 12:37 Resp 20 05/07/24 12:37 BP 92/61 05/07/24 12:32 Pulse Ox 96 05/07/24 12:32 FiO2 Intake & Output 05/06/24 05/07/24 05/07/24 18:59 06:59 18:59 Other: Voiding Method External Catheter External Catheter External Catheter # Voids 1 - Exam Elderly female up in the chair in no distress No tachypnea or accessory muscle respiration use Unlabored breathing Left leg wound decreased in size less drainage - Labs CBC & Chem 7: 05/06/24 05:56 05/06/24 05:56 Labs: Abnormal Lab Results - Last 24 Hours (Table) 05/03/24 Range/Units Unknown Methylmalonic Acid 0.63 H (<0.40) umol/L Assessment and Plan (1) Leg wound, left Current Visit: Yes Status: Acute Code(s): S81.802A - UNSPECIFIED OPEN WOUND, LEFT LOWER LEG, INITIAL ENCOUNTER SNOMED Code(s): 49826089412993613 (2) Left leg cellulitis Current Visit: Yes Status: Acute Code(s): L03.116 - CELLULITIS OF LEFT LOWER LIMB SNOMED Code(s): 74297955650614310 (3) Penicillin allergy Current Visit: Yes Status: Acute Code(s): Z88.0 - ALLERGY STATUS TO PENICILLIN SNOMED Code(s): 40707236 Plan: 1patient presenting to the hospital with increasing weakness and debility and this patient also have a wound to the left lower extremity started as a trauma 2 weeks ago with progressive worsening patient was noticed to have a significantly wound with a foul-smelling concerning for wound infection possibly gram- negative/anaerobes 2-patient did have left-sided effusion, clinical not behaving as pneumonia did have normal procalcitonin, her Levaquin was discontinued 3-penicillin allergy that will remain the number of antibiotics safe to use 4-local culture has been obtained which is currently growing Streptococcus anginosus 5-local wound care with the [facility] followed by moist dressing change daily 6-patient to continue with Rocephin and plan to finish therapy with oral Ceftin on discharge Dictation was produced using [employer] dictation software. please excuse any grammatical, word or spelling errors. Time with Patient: Less than 30
--- NOTE | 2024-05-08 15:34 | P.PN ---
Subjective Progress Note Date: 05/08/24 Principal diagnosis: Advised weakness and medical debility Left lower lobe pneumonia Acute on chronic hypoxic respiratory failure Metastatic squamous cell lung cancer Pleural fluid cytology positive for squamous cell cancer Generalized weakness and medical debility History COPD May 08, 2024, patient seen eval examined during rounds labs reviewed medications reviewed care plan discussed, patient is very weak tired on 2 L oxygen, oxygen saturation 92%, hemodynamic status stable blood pressure 110/70 heart rate is 110 patient is afebrile. Brain MRI is negative for any metastatic disease, patient is being treated with left leg cellulitis and left leg wound, patient is being treated with IV Rocephin subsequently to be switched to Ceftin, chest x-ray and CT scan finding as noted above 84-year-old female with end-stage COPD as well as metastatic lung cancer with pleural effusion, patient was discharged 2 days ago from the hospital after left thoracentesis, EMS were notified by son due to weakness tiredness not feeling well, patient was recommended for rehab placement prior but she declined of note that at home she was not able to take care of herself worsening weakness ongoing shortness of breath present however denies any fever chills night sweats denies any chest pain cough or sputum production now patient is agreeable for placement in rehab. Labs reviewed WBC count 12.4, hemoglobin hematocrit is 10/32 coags okay chemistry sodium 136 potassium 4 BUN/creatinine 50/1.08 glucose 185 on 2 L oxygen saturation 100% came down to 99% 1.5 L currently patient has been started resumed on DuoNeb along with home medications and Pulmicort she has been resumed on Bumex as she is taking before and Singulair and her ECG is nonspecific changes sinus tachycardia. Chest x-ray cardiomegaly pleural effusion CT scan of the chest tiny left pleural effusion no right pleural effusion extensive emphysema and COPD with evidence of aspiration pneumonia on the left side. Of note that cytology came back positive for squamous cell lung cancer Objective - Vital Signs Vital signs: Vital Signs Temp 98.3 F 05/08/24 13:00 Pulse 110 H 05/08/24 13:00 Resp 22 05/08/24 13:00 BP 107/70 05/08/24 13:00 Pulse Ox 92 L 05/08/24 13:00 FiO2 Intake & Output 05/07/24 05/08/24 05/08/24 18:59 06:59 18:59 Intake Total 1010 0 Output Total 401 1 Balance 1010 -401 -1 Intake: Intake, IV Titration 290 Amount Sodium Chloride 0.9% 1, 240 000 ml @ 20 mls/hr IV . Q24H [facility] Rx#:[id number] cefTRIAXone 2 gm In 50 Sodium Chloride 0.9% 50 ml @ 100 mls/hr IVPB Q24HR [facility] Rx#:[id number] Oral 720 0 Output: Urine 400 Stool 1 1 Other: Voiding Method External Catheter External Catheter External Catheter # Bowel Movements 2 - Exam - Constitutional General appearance: average body habitus, cooperative, disheveled, mild distress - EENT Eyes: PERRLA Ears: bilateral: normal - Neck Neck: normal ROM Carotids: bilateral: upstroke normal - Respiratory Respiratory: bilateral: rales - Cardiovascular Rhythm: regular Heart sounds: normal: S1, S2 - Gastrointestinal General gastrointestinal: normal bowel sounds - Neurologic Neurologic: CNII-XII intact - Musculoskeletal Musculoskeletal: gait normal, generalized weakness, strength equal bilaterally - Psychiatric Psychiatric: A&O x's 3, appropriate affect, intact judgment & insight - Labs CBC & Chem 7: 05/06/24 05:56 05/06/24 05:56 Labs: Microbiology - Last 24 Hours (Table) 05/03/24 12:35 Anaerobic Culture - Final Ankle - Left Anaerobic Gm Negative Bacilli Assessment and Plan Assessment: Left leg wound and cellulitis Generalized weakness and medical debility Left lower lobe pneumonia Acute on chronic hypoxic respiratory failure Metastatic squamous cell lung cancer Pleural fluid cytology positive for squamous cell cancer Generalized weakness and medical debility History COPD Plan: IV antibiotics given history of allergy to penicillin we will continue IV Rocephin Full PT OT evaluation for rehab placement Home medications Left sided pleural fluid minimal no intervention needed Oncology evaluation recommendation noted ID recommendation noted as well Time with Patient: Greater than 30
--- NOTE | 2024-05-08 19:03 | CDI ---
Documentation Clarification Form Date: 05/08/2024 06:45:50 PM From: Bianca Vicente RN CCDS Phone: [phone] Admit Date: 05/02/2024 07:55:00 PM Patient Name: Jana Arellano Visit Number: [id number] Discharge Date: ATTENTION: The Clinical Documentation Specialists (CDI) and [facility] Coding Staff appreciate your assistance in clarifying documentation. Please respond to the clarification below the line at the bottom and electronically sign. The CDI & [facility] Coding staff will review the response and follow-up if needed. Please note: Queries are made part of the Legal Health Record. If you have any questions, please contact the author of this message via ITS. Doctor: Billy Saul There is documentation of Aspiration, 05/06, Medicine note. Additional clarification is requested. History/Risk Factors: 84 year old female was discharged two days ago from the hospital after left thoracentesis, EMS was notified by son due to weakness, tiredness, not feeling well and unable to care for herself. Medical History: Asthma, CAD, Cancer, COPD, HLD, HTN, OA, Adenocarcinoma of the right upper lobe and chronic respiratory failure. 05/03, Pulmonology. Clinical Indicators: 05/06, Medicine note: CT scan reviewed and has opacities in left lower lung, opacified airways, correlate for aspiration. Levaquin started. VSS, 05/02: B/P 117/66; HR 110; Temp 98.0 F Oral; RR 22; SpO2 98% 2L nc LABS, 05/02: Wbc 12.4 Neutrophils 10.1, Plasma lactic acid 1.6, BNP 604; Procalcitonin 0.11 CXR, 05/02: Cardiomegaly left pleural effusions CT Chest, 05/02: Airspace opacities in the left lower lung with opacified airways correlate for aspiration. Findings new from 04/22/2024. Trace left pleural effusion with pulmonary edema. Pulmonary note, 05/08 Left lower lobe pneumonia. Treatment: 05/03 05/05 Cefepime IVPB Q12H; 05/06 Ceftriaxone IVPB Q24H; 05/03 05/03 Levaquin IVPB Q48H; Can you please clarify Aspiration? [ ] Aspiration pneumonia [ ] Aspiration [ ] Other, please specify [ ] Unable to determine (Template Last Revised: September 2020) MTDD
[2024-05-09] MEDS ORDERED: ZINC OXIDE PASTE (Z-GUARD) 1 APPLIC TOPICAL PRN (02:04)
--- NOTE | 2024-05-09 03:50 | PN ---
PROGRESS NOTE SUBJECTIVE: An 84-year-old white female with lung cancer and thoracentesis fluid. OBJECTIVE: CARDIOVASCULAR: S1, S2. LUNGS: Clear. GI: Soft. HEMATOLOGY: Negative Homans. PSYCH: Fair mood and affect. OPHTHALMOLOGIC: Pupils equal, round, reactive. ASSESSMENT: Squamous cell carcinoma of the thoracentesis fluid. Discussed case with Dr. Garay who may come and possibly give chemotherapy prior to discharge as the patient is very sick and possibly we will not make it to that appointment because she is so sick, for which we will hopefully start chemotherapy while in the hospital. MMELIZABETH / ERINN: [id number] /
--- NOTE | 2024-05-09 05:02 | PN ---
PROGRESS NOTE An 84-year-old white female with metastatic pleural effusion, positive for squamous cell carcinoma. Dr. Garay is seeing her for Oncology. History of recurrent 3rd time lung cancer at this time. She has anemia. She is aware of metastatic non-small cell carcinoma consistent with squamous cell carcinoma. Unfortunately, recurrent disease with pleural involvement. She has the nuclear medical bone scan scheduled markers on the cytology, started on IV iron. Monitor CBC. . Pending studies and followup. The patient will possibly have to get her some chemo. Prognosis guarded. Please see further orders. OBJECTIVE: LUNGS: Transmitted upper sounds. GI: Soft. HEMATOLOGY: Negative Homans. VITAL SIGNS: O2 is 94% on 2 L. Blood pressure 170/72, temp 97.5, pulse 105, respiratory rate 18 to 22. Metastatic squamous cell carcinoma, obesity, generalized debility. She is breathing much better after the thoracentesis done. Possibly discharge home. Follow up as an outpatient for Oncology. I will see what patient wants to do. Please see further orders. MMODL / IJN: [id number] /
--- NOTE | 2024-05-09 10:59 | P.PN ---
Subjective Progress Note Date: 05/09/24 Principal diagnosis: Recurrent Sq cell lung carcinoma In f/u pt is in laying in bed, she is noted to be short of breath at rest. She states she does not feel well today. She verbalized that she does not want to do chemo. Objective - Vital Signs Vital signs: Vital Signs Temp 98.3 F 05/09/24 07:20 Pulse 104 H 05/09/24 08:34 Resp 17 05/09/24 07:20 BP 122/79 05/09/24 07:20 Pulse Ox 96 05/09/24 07:20 FiO2 Intake & Output 05/08/24 05/09/24 05/09/24 18:59 06:59 18:59 Intake Total 0 Output Total 301 100 Balance -301 -100 Intake: Oral 0 Output: Urine 300 100 Stool 1 Other: Voiding Method External Catheter External Catheter # Bowel Movements 1 2 - Constitutional General appearance: Present: average body habitus, cooperative, mild distress - EENT Eyes: Present: anicteric sclerae, EOMI ENT: Present: hearing grossly normal - Respiratory Respiratory: bilateral: diminished - Cardiovascular Rhythm: regular Heart sounds: normal: S1, S2 - Peripheral edema leg Peripheral Edema: bilateral: Trace - Gastrointestinal General gastrointestinal: Present: soft - Musculoskeletal Musculoskeletal: Present: generalized weakness - Psychiatric Psychiatric: Present: A&O x's 3, appropriate affect, intact judgment & insight - Labs CBC & Chem 7: 05/06/24 05:56 05/06/24 05:56 Assessment and Plan (1) Squamous cell lung cancer Current Visit: Yes Status: Acute Priority: High Code(s): C34.90 - MALIGNANT NEOPLASM OF UNSP PART OF UNSP BRONCHUS OR LUNG SNOMED Code(s): 796506045 (2) Anemia Current Visit: Yes Status: Acute Priority: Medium Code(s): D64.9 - ANEMIA, UNSPECIFIED SNOMED Code(s): 426487496 (3) Malignant pleural effusion Current Visit: Yes Status: Acute Priority: High Code(s): J91.0 - MALIGNANT PLEURAL EFFUSION SNOMED Code(s): 631400705 Plan: Hx Sq cell lung carcinoma. Now presenting with malignant pleural effusion -History of Sq cell lung carcinoma, had LLL wedge resection in 02/2022 -Had left-sided thoracentesis 04/29/2024 with 500 mL removed. Cytology positive for rare metastatic non-small carcinoma consistent with squamous cell carcinoma. Upon review of EMR, patient had PET/CT on 12/25/2023 which showed mildly hypermetabolic small bilateral pulmonary nodules. Unfortunately, recurrent disease, pleural involvement -On admit CT chest without contrast revealed airspace opacities in the left low er lung with opacified airways, correlate for aspiration. Trace left pleural effusion with pulmonary edema. Levaquin started -Staging CT AP and brain MRI are neg for metastatic disease. Pending NM bone scan for pt to be more tolerant of positioning -NGS/PDL-1 requested on cytology-no results yet, will update chart when available -Attending inquired about starting chemo inpt. Acute cancer treatment has not been discussed because pt performance status is poor and she had active infection. Infection is improving with treatment but, PS still remains very poor. She is not a candidate for treatment at this time. -Pt verbalized that she does not want chemo. Asked her if she would like to meet with the Oncologist after we have results of molecular testing to see if there are other treatment options available to her-targeted therapy, immunotherapy-she stated she may consider. -Will cont to f/u with pt Normocytic anemia -Iron sat 12%, ferritin 130. Howard that wound treated adequately to begin parenteral iron -MMA elevated, most c/w a functional B12 deficit. IM B12 supplement started.
[2024-05-09] MEDS: CYANOCOBALAMIN 1,000 MCG/ML 1 ML VIAL IM SCH (11:04)
[2024-05-09] MEDS: SODIUM FERRIC GLUCONAT-SUCROSE 125 MG in SODIUM CHLORIDE 0.9% 100 ML IVPB SCH (12:06)
--- NOTE | 2024-05-09 13:26 | P.PN ---
Subjective Progress Note Date: 05/08/24 Principal diagnosis: Reason for follow-up is left lower extremity wound and cellulitis Patient is a 84-year-old female past medical history significant for hypertension hyperlipidemia COPD osteoarthritis pneumonia coronary artery disease in this patient presenting to the hospital for evaluation of worsening debility along with shortness of breath, patient also have a traumatic wound to the left lower extremity concerning for wound infection cellulitis prompted this consultation. On today's evaluation that is 05/08/2024, Patient is afebrile this morning patient denies having any chest pain shortness of breath or cough, the patient is currently on 3 L current oxygen pain to the left lower extremity has decreased in intensity.Patient denies any abdominal pain no diarrhea no nausea no vomiting, no new labs were obtained today cultures with Streptococcus anginosus anaerobic gram-negative bacilli Objective - Vital Signs Vital signs: Vital Signs Temp 97.5 F L 05/08/24 07:39 Pulse 84 05/08/24 12:32 Resp 21 05/08/24 08:58 BP 107/72 05/08/24 07:39 Pulse Ox 94 L 05/08/24 07:39 FiO2 Intake & Output 05/07/24 05/08/24 05/08/24 18:59 06:59 18:59 Intake Total 1010 Output Total 401 1 Balance 1010 -401 -1 Intake: Intake, IV Titration 290 Amount Sodium Chloride 0.9% 1, 240 000 ml @ 20 mls/hr IV . Q24H [facility] Rx#:[id number] cefTRIAXone 2 gm In 50 Sodium Chloride 0.9% 50 ml @ 100 mls/hr IVPB Q24HR [facility] Rx#:[id number] Oral 720 Output: Urine 400 Stool 1 1 Other: Voiding Method External Catheter External Catheter External Catheter # Bowel Movements 2 - Exam Elderly female up in the chair in no distress No tachypnea or accessory muscle respiration use Unlabored breathing Left leg wound decreased in size less drainage - Labs CBC & Chem 7: 05/06/24 05:56 05/06/24 05:56 Labs: Microbiology - Last 24 Hours (Table) 05/03/24 12:35 Anaerobic Culture - Final Ankle - Left Anaerobic Gm Negative Bacilli Assessment and Plan (1) Leg wound, left Current Visit: Yes Status: Acute Code(s): S81.802A - UNSPECIFIED OPEN WOUND, LEFT LOWER LEG, INITIAL ENCOUNTER SNOMED Code(s): 79085276173607453 (2) Left leg cellulitis Current Visit: Yes Status: Acute Code(s): L03.116 - CELLULITIS OF LEFT LOWER LIMB SNOMED Code(s): 60885738223101521 (3) Penicillin allergy Current Visit: Yes Status: Acute Code(s): Z88.0 - ALLERGY STATUS TO PENICILLIN SNOMED Code(s): 88821498 Plan: 1patient presenting to the hospital with increasing weakness and debility and this patient also have a wound to the left lower extremity started as a trauma 2 weeks ago with progressive worsening patient was noticed to have a significantly wound with a foul-smelling concerning for wound infection possibly gram- negative/anaerobes 2-patient did have left-sided effusion, clinical not behaving as pneumonia did have normal procalcitonin, her Levaquin was discontinued 3-penicillin allergy that will remain the number of antibiotics safe to use 4-local culture has been obtained which is currently growing Streptococcus anginosus, anaerobe cultures growing anaerobic Gram negative bacilli 5-[facility] followed by moist dressing change daily 6-patient to continue with Rocephin and Flagyl while inpatient finishing therapy with oral Flagyl and Ceftin on discharge Dictation was produced using [employer] dictation software. please excuse any grammatical, word or spelling errors.
--- NOTE | 2024-05-09 13:33 | P.PN ---
Subjective Progress Note Date: 05/09/24 Principal diagnosis: Advised weakness and medical debility Left lower lobe pneumonia Acute on chronic hypoxic respiratory failure Metastatic squamous cell lung cancer Pleural fluid cytology positive for squamous cell cancer Generalized weakness and medical debility History COPD May 09, 2024, patient seen evaluate examined during rounds labs reviewed medications reviewed care plan discussed, patient remains afebrile, oxygen saturation is 96% on 3 L, hemodynamic status stable, labs not done today. Patient remains on [place] as needed for pain control, DuoNeb unit dose 4 times a day also inhaled corticosteroids 2 times a day patient remains on IV Rocephin 2 g daily tolerating well, antihypertensive agents being continued May 08, 2024, patient seen eval examined during rounds labs reviewed medications reviewed care plan discussed, patient is very weak tired on 2 L oxygen, oxygen saturation 92%, hemodynamic status stable blood pressure 110/70 heart rate is 110 patient is afebrile. Brain MRI is negative for any metastatic disease, patient is being treated with left leg cellulitis and left leg wound, patient is being treated with IV Rocephin subsequently to be switched to Ceftin, chest x-ray and CT scan finding as noted above 84-year-old female with end-stage COPD as well as metastatic lung cancer with pleural effusion, patient was discharged 2 days ago from the hospital after left thoracentesis, EMS were notified by son due to weakness tiredness not feeling well, patient was recommended for rehab placement prior but she declined of note that at home she was not able to take care of herself worsening weakness ongoing shortness of breath present however denies any fever chills night sweats denies any chest pain cough or sputum production now patient is agreeable for placement in rehab. Labs reviewed WBC count 12.4, hemoglobin hematocrit is 10/32 coags okay chemistry sodium 136 potassium 4 BUN/creatinine 50/1.08 glucose 185 on 2 L oxygen saturation 100% came down to 99% 1.5 L currently patient has been started resumed on DuoNeb along with home medications and Pulmicort she has been resumed on Bumex as she is taking before and Singulair and her ECG is nonspecific changes sinus tachycardia. Chest x-ray cardiomegaly pleural effusion CT scan of the chest tiny left pleural effusion no right pleural effusion extensive emphysema and COPD with evidence of aspiration pneumonia on the left side. Of note that cytology came back positive for squamous cell lung cancer Objective - Vital Signs Vital signs: Vital Signs Temp 98.3 F 05/09/24 07:20 Pulse 104 H 05/09/24 12:05 Resp 17 05/09/24 07:20 BP 122/79 05/09/24 07:20 Pulse Ox 96 05/09/24 07:20 FiO2 Intake & Output 05/08/24 05/09/24 05/09/24 18:59 06:59 18:59 Intake Total 0 Output Total 301 100 Balance -301 -100 Intake: Oral 0 Output: Urine 300 100 Stool 1 Other: Voiding Method External Catheter External Catheter # Bowel Movements 1 2 - Exam - Constitutional General appearance: average body habitus, cooperative, disheveled, mild distress - EENT Eyes: PERRLA Ears: bilateral: normal - Neck Neck: normal ROM Carotids: bilateral: upstroke normal - Respiratory Respiratory: bilateral: rales - Cardiovascular Rhythm: regular Heart sounds: normal: S1, S2 - Gastrointestinal General gastrointestinal: normal bowel sounds - Neurologic Neurologic: CNII-XII intact - Musculoskeletal Musculoskeletal: gait normal, generalized weakness, strength equal bilaterally - Psychiatric Psychiatric: A&O x's 3, appropriate affect, intact judgment & insight - Labs CBC & Chem 7: 05/06/24 05:56 05/06/24 05:56 Assessment and Plan Assessment: Left leg wound and cellulitis Generalized weakness and medical debility Left lower lobe pneumonia Acute on chronic hypoxic respiratory failure Metastatic squamous cell lung cancer Pleural fluid cytology positive for squamous cell cancer Generalized weakness and medical debility History COPD Plan: IV antibiotics given history of allergy to penicillin we will continue IV Rocephin along with Flagyl Full PT OT evaluation for rehab placement Home medications, to be continued Continue bronchodilators observation monitor off of IV steroids or oral prednisone Left sided pleural fluid minimal no intervention needed Oncology evaluation recommendation noted ID recommendation noted as well Time with Patient: Greater than 30
[2024-05-09 13:44] VITALS: BMI 32.9
[2024-05-09] MEDS: FUROSEMIDE 10 MG/ML 4 ML VIAL IV STA (20:14)
[2024-05-09] MEDS: LIDOCAINE 4% PATCH TOPICAL SCH (21:51)
--- NOTE | 2024-05-09 22:01 | P.PN ---
Subjective Progress Note Date: 05/09/24 Principal diagnosis: Reason for follow-up is left lower extremity wound and cellulitis Patient is a 84-year-old female past medical history significant for hypertension hyperlipidemia COPD osteoarthritis pneumonia coronary artery disease in this patient presenting to the hospital for evaluation of worsening debility along with shortness of breath, patient also have a traumatic wound to the left lower extremity concerning for wound infection cellulitis prompted this consultation. On today's evaluation that is 05/09/2024,the patient denies any fever or any chills, patient is breathing comfortably on 4 L nasal cannula oxygen the patient denies chest pain shortness of breath and no significant cough, patient denies abdominal pain, no nausea vomiting or diarrhea. Pain to the left lower extremity is currently controlled. No new labs were obtained today local culture with Streptococcus and anaerobe gram-negative bacilli Objective - Vital Signs Vital signs: Vital Signs Temp 98.3 F 05/09/24 07:20 Pulse 104 H 05/09/24 12:05 Resp 17 05/09/24 07:20 BP 122/79 05/09/24 07:20 Pulse Ox 96 05/09/24 07:20 FiO2 Intake & Output 05/08/24 05/09/24 05/09/24 18:59 06:59 18:59 Intake Total 0 Output Total 301 100 Balance -301 -100 Intake: Oral 0 Output: Urine 300 100 Stool 1 Other: Voiding Method External Catheter External Catheter # Bowel Movements 1 2 - Exam Elderly female up in the chair in no distress No tachypnea or accessory muscle respiration use Unlabored breathing Left leg wound decreased in size less drainage - Labs CBC & Chem 7: 05/06/24 05:56 05/06/24 05:56 Assessment and Plan (1) Leg wound, left Current Visit: Yes Status: Acute Code(s): S81.802A - UNSPECIFIED OPEN WOUND, LEFT LOWER LEG, INITIAL ENCOUNTER SNOMED Code(s): 22518548251098561 (2) Left leg cellulitis Current Visit: Yes Status: Acute Code(s): L03.116 - CELLULITIS OF LEFT LOWER LIMB SNOMED Code(s): 62522066797315332 (3) Penicillin allergy Current Visit: Yes Status: Acute Code(s): Z88.0 - ALLERGY STATUS TO PENICILLIN SNOMED Code(s): 38726676 Plan: 1patient presenting to the hospital with increasing weakness and debility and this patient also have a wound to the left lower extremity started as a trauma 2 weeks ago with progressive worsening patient was noticed to have a significantly wound with a foul-smelling concerning for wound infection possibly gram- negative/anaerobes 2-patient did have left-sided effusion, clinical not behaving as pneumonia did have normal procalcitonin, her Levaquin was discontinued 3-penicillin allergy that will remain the number of antibiotics safe to use 4-local culture has been obtained which is currently growing Streptococcus anginosus, anaerobe cultures growing anaerobic Gram negative bacilli 5-local wound care with the Medihoney followed by moist dressing change daily 6-patient did have shown some clinical improvement as for his left leg wound and cellulitisis concerned, we will continue with Rocephin and Flagyl while inpatient finishing therapy with oral Flagyl and Ceftin on discharge Dictation was produced using [employer] dictation software. please excuse any grammatical, word or spelling errors. Time with Patient: Less than 30
[2024-05-10] MEDS: FUROSEMIDE 10 MG/ML 4 ML VIAL IV SCH (08:05)
[2024-05-10 09:20] LABS: ALT 22 U/L (8-44); AST 33 U/L (13-35); Albumin 2.7 g/dL (3.8-4.9); Albumin/Globulin Ratio 1.29 Ratio (1.60-3.17); Alkaline Phosphatase 73 U/L (41-126); BUN/Creat Ratio 17.42 Ratio (12.00-20.00); Blood Urea Nitrogen 33.1 mg/dL (9.0-27.0); Calcium 8.1 mg/dL (8.7-10.3); Carbon Dioxide 26.6 mmol/L (21.6-31.8); Chloride 101 mmol/L (96-109); Globulin 2.1 g/dL (1.6-3.3); Glucose 124 mg/dL (70-110); Potassium 3.7 mmol/L (3.5-5.5); Sodium 140 mmol/L (135-145); Total Bilirubin 0.2 mg/dL (0.3-1.2); Total Protein 4.8 g/dL (6.2-8.2)
[2024-05-10 09:21] LABS: Basophils # (A) 0.01 X 10*3/uL (0.00-0.10); Basophils % (A) 0.1 %; Eosinophils # (A) 0.12 X 10*3/uL (0.04-0.35); Eosinophils % (A) 1.5 %; HCT 28.3 % (37.2-46.3); HGB 8.7 g/dL (12.0-15.0); Lymphocytes # (A) 0.66 X 10*3/uL (0.90-5.00); Lymphocytes % (A) 8.2 %; MCHC 30.7 g/dL (32.0-37.0); Mean Platelet Volume 11.4 FL (9.5-12.2); Monocytes # (A) 0.26 X 10*3/uL (0.20-1.00); Monocytes % (A) 3.2 %; NRBC Per 100 WBC 0 X 10*3/uL (0.00-0.01); Neutrophils # (A) 6.97 X 10*3/uL (1.80-7.70); Neutrophils % (A) 86.1 %; Platelet Count 151 X 10*3/uL (140-440); RBC 3.11 X 10*6/uL (4.10-5.20); RDW 17.2 % (11.5-14.5); WBC 8.09 X 10*3/uL (4.50-10.00)
--- NOTE | 2024-05-10 18:53 | CT ---
EXAMINATION TYPE: CT chest wo con DATE OF EXAM: 05/10/2024 COMPARISON: 05/02/2024 HISTORY: 84-year-old female confusion, SOB, AMS TECHNIQUE: Contiguous axial scanning of the chest without IV contrast. Coronal/sagittal reconstructi ons performed. CT DLP: 579.1mGycm. Automatic exposure control utilized for a dose reduction. FINDINGS: Heart is mildly enlarged without pericardial effusion. Extensive three-vessel coronary artery calcifi cations are present. Moderate atherosclerotic arch calcifications. Conventional arch vessel branching anatomy. Suspect at least moderate atherosclerotic narrowing proximal left subclavian artery. 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 No thoracic lymphadenopathy by CT size criteria. There appears to be some chronic smooth pleural thickening throughout the right hemithorax. Enlarging now moderate left pleural effusion with progressive volume loss and consolidation now invol ving the entire left lower lobe. Background moderate emphysematous change. Airspace opacity throughou t most of the left upper lobe. Patchy opacity right lower lung is increased as well. Some dynamic collapsibility noted of the mainstem bronchi. Visualized upper abdomen shows some layering gallstones. Bones: Mild to moderate degenerative disc disease midthoracic spine. IMPRESSION: 1. Mild cardiomegaly and extensive three-vessel coronary calcifications noted. 2. Increasing now moderate left pleural effusion. Progressive volume loss and now consolidation throu ghout the entire left lower lobe. Groundglass airspace disease involves most of the left upper lobe. Some patchy opacity right lower lung is new as well. Correlate for combination of atelectasis and pne umonia. 3. There is some dynamic collapsibility of the right and left mainstem bronchi. Correlate for underly ing bronchomalacia. Background COPD. 4. Cholelithiasis. [facility], , 05/10/2024 6:51 PM
[2024-05-10] MEDS: methylPREDNISolone SOD SUCCI 125 MG/2 ML VIAL IV SCH (20:53)
[2024-05-10] MEDS: NYSTATIN 100,000 UNIT/GM POWD 15 GM TOPICAL SCH (20:59)
--- NOTE | 2024-05-11 01:59 | PN ---
PROGRESS NOTE SUBJECTIVE: An 84-year-old white female with GERD, lung cancer with malignant pleural effusion, trying to get her breathing better. We are going to repeat her CAT scan to see about pleural effusions. We gave her IV Solu-Medrol tonight. We are going to give her Lasix once a day. We are going to give her breathing treatments. She has been sitting up in the chair 2 hours today. She is in a lot of confusion and congestion. OBJECTIVE: CARDIOVASCULAR: S1, S2. LUNGS: Congestion, inspiratory and expiratory wheezes, rhonchi x4. CT is pending again. GI: Soft. HEMATOLOGY: 2+ edema. PLAN: Continue current treatment. Prognosis guarded. She has been started on broad-spectrum IV antibiotics. Steroids are going to be added. Possible check for another thoracentesis possibility and see if there is anymore fluid buildup in the lungs. Prognosis guarded. Wait for Oncology recommendations. MMODL / IJN: [id number] /
--- NOTE | 2024-05-11 10:02 | P.PN ---
Subjective Progress Note Date: 05/10/24 Principal diagnosis: Reason for follow-up is left lower extremity wound and cellulitis Patient is a 84-year-old female past medical history significant for hypertension hyperlipidemia COPD osteoarthritis pneumonia coronary artery disease in this patient presenting to the hospital for evaluation of worsening debility along with shortness of breath, patient also have a traumatic wound to the left lower extremity concerning for wound infection cellulitis prompted this consultation. On today's evaluation that is 05/10/2024,the patient remains to be afebrile, patient is on 5 L nasal cannula supplemental oxygen and denies any shortness of breath no chest pain or cough.Patient denies having any nausea or vomiting, no abdominal pain and no diarrhea has been reported has been complaining of mostly back pain pain to the left leg has decreased in intensity. Patient white count is 8.09, creatinine is 1.9 Objective - Vital Signs Vital signs: Vital Signs Temp 92.5 F L 05/10/24 07:20 Pulse 108 H 05/10/24 11:42 Resp 30 H 05/10/24 07:20 BP 113/72 05/10/24 07:20 Pulse Ox 96 05/10/24 08:40 FiO2 Intake & Output 05/09/24 05/10/24 05/10/24 18:59 06:59 18:59 Output Total 750 Balance -750 Weight 81.647 kg Output: Urine 750 Other: Voiding Method External Catheter External Catheter # Voids 5 # Bowel Movements 1 - Exam Elderly female up in the chair in no distress No tachypnea or accessory muscle respiration use Unlabored breathing Left leg wound decreased in size less drainage - Labs CBC & Chem 7: 05/10/24 04:09 05/10/24 04:09 Labs: Abnormal Lab Results - Last 24 Hours (Table) 05/10/24 05/10/24 Range/Units 04:09 04:09 RBC 3.11 L (4.10-5.20) X 10*6/uL Hgb 8.7 L (12.0-15.0) g/dL Hct 28.3 L (37.2-46.3) % MCHC 30.7 L (32.0-37.0) g/dL RDW 17.2 H (11.5-14.5) % Immature Gran # 0.07 H (0.00-0.04) X 10*3/uL Lymphocytes # 0.66 L (0.90-5.00) X 10*3/uL Anion Gap 12.40 H (4.00-12.00) mmol/L BUN 33.1 H (9.0-27.0) mg/dL Creatinine 1.9 H (0.6-1.5) mg/dL Est GFR (CKD-EPI) 26 L (>=60) Glucose 124 H (70-110) mg/dL Calcium 8.1 L (8.7-10.3) mg/dL Total Bilirubin 0.2 L (0.3-1.2) mg/dL Total Protein 4.8 L (6.2-8.2) g/dL Albumin 2.7 L (3.8-4.9) g/dL Albumin/Globulin Ratio 1.29 L (1.60-3.17) Ratio Assessment and Plan (1) Leg wound, left Current Visit: Yes Status: Acute Code(s): S81.802A - UNSPECIFIED OPEN WOUND, LEFT LOWER LEG, INITIAL ENCOUNTER SNOMED Code(s): 20547523112218703 (2) Left leg cellulitis Current Visit: Yes Status: Acute Code(s): L03.116 - CELLULITIS OF LEFT LOWER LIMB SNOMED Code(s): 68455816137397189 (3) Penicillin allergy Current Visit: Yes Status: Acute Code(s): Z88.0 - ALLERGY STATUS TO PENICILLIN SNOMED Code(s): 10700339 Plan: 1patient presenting to the hospital with increasing weakness and debility and this patient also have a wound to the left lower extremity started as a trauma 2 weeks ago with progressive worsening patient was noticed to have a significantly wound with a foul-smelling concerning for wound infection possibly gram- negative/anaerobes 2-patient did have left-sided effusion, clinical not behaving as pneumonia did have normal procalcitonin, her Levaquin was discontinued 3-penicillin allergy that will remain the number of antibiotics safe to use 4-local culture has been obtained which is currently growing Streptococcus anginosus, anaerobe cultures growing anaerobic Gram negative bacilli 5-local wound care with the Medihoney followed by moist dressing change daily 6-patient will continue with Rocephin and Flagyl while inpatient, however plan is to finish therapy with oral Flagyl and Ceftin on discharge x 7 days Dictation was produced using [employer] dictation software. please excuse any grammatical, word or spelling errors. Time with Patient: Less than 30
--- NOTE | 2024-05-11 14:35 | P.PN ---
Subjective Progress Note Date: 05/11/24 Principal diagnosis: Reason for follow-up is left lower extremity wound and cellulitis Patient is a 84-year-old female past medical history significant for hypertension hyperlipidemia COPD osteoarthritis pneumonia coronary artery disease in this patient presenting to the hospital for evaluation of worsening debility along with shortness of breath, patient also have a traumatic wound to the left lower extremity concerning for wound infection cellulitis prompted this consultation. On today's evaluation that is 05/11/2024, the patient continues to be afebrile, the patient is on 5 L nasal oxygen and breathing comfortably, the Pt denies having any chest pain or cough, the patient denies having any abdominal pain no vomiting or any diarrhea pain to the left lower extremity has decreased in intensity. No new lab repeat today white count normalized as of yesterday Objective - Vital Signs Vital signs: Vital Signs Temp 97.6 F 05/11/24 07:08 Pulse 104 H 05/11/24 11:28 Resp 16 05/11/24 07:08 BP 115/66 05/11/24 07:08 Pulse Ox 98 05/11/24 07:08 FiO2 Intake & Output 05/10/24 05/11/24 05/11/24 18:59 06:59 18:59 Intake Total 200 Output Total 300 300 Balance -300 -100 Intake: Oral 200 Output: Urine 300 300 Other: Voiding Method External Catheter External Catheter External Catheter - Exam Elderly female up in the chair in no distress No tachypnea or accessory muscle respiration use Unlabored breathing Left leg wound decreased in size less drainage - Labs CBC & Chem 7: 05/10/24 04:09 05/10/24 04:09 Assessment and Plan (1) Leg wound, left Current Visit: Yes Status: Acute Code(s): S81.802A - UNSPECIFIED OPEN WOUND, LEFT LOWER LEG, INITIAL ENCOUNTER SNOMED Code(s): 90515171942386836 (2) Left leg cellulitis Current Visit: Yes Status: Acute Code(s): L03.116 - CELLULITIS OF LEFT LOWER LIMB SNOMED Code(s): 14115317469176970 (3) Penicillin allergy Current Visit: Yes Status: Acute Code(s): Z88.0 - ALLERGY STATUS TO PENICILLIN SNOMED Code(s): 87063031 Plan: 1patient presenting to the hospital with increasing weakness and debility and this patient also have a wound to the left lower extremity started as a trauma 2 weeks ago with progressive worsening patient was noticed to have a significantly wound with a foul-smelling concerning for wound infection possibly gram- negative/anaerobes 2-patient did have left-sided effusion, clinical not behaving as pneumonia did have normal procalcitonin, her Levaquin was discontinued 3-penicillin allergy that will remain the number of antibiotics safe to use 4-local culture has been obtained which is currently growing Streptococcus anginosus, anaerobe cultures growing anaerobic Gram negative bacilli 5-local wound care with the Medihoney followed by moist dressing change daily and will continue with Rocephin and Flagyl while inpatient Dictation was produced using [employer] dictation software. please excuse any grammatical, word or spelling errors. Time with Patient: Less than 30
[2024-05-11] MEDS: FLUCONAZOLE IN NACL,ISO-OSM 100 MG in SALINE 1 50ML.BAG IVPB SCH (15:03)
[2024-05-11] MEDS: AZITHROMYCIN 500 MG in SODIUM CHLORIDE 0.9% 250 ML IVPB SCH (15:03)
[2024-05-11] MEDS: FUROSEMIDE 10 MG/ML 10 ML VIAL IV STA (22:09)
--- NOTE | 2024-05-11 23:00 | PN ---
PROGRESS NOTE 84-year-old white female with cancer in the thoracentesis fluid. Her breathing has been worsening, I started her on steroids. Remains on IV antibiotics. Ordered a CTA of the chest to see if she has more pleural effusion compared to prior. Patchy opacity right lower lung has decreased, moderate pleural effusion with progressive left lower lobe moderate emphysema most of the left upper lobe, increasing moderate left pleural effusion, progressive volume loss, now consolidation to the entire left lower lobe. Ground-glass in the left upper lobe. Right lung is worse, also bronchi are collapsing, bronchomalacia, back on COPD. Patient's prognosis extremely guarded. We will get Infectious Disease and antibiotics diffusely, possibly get another thoracentesis. PROGNOSIS: Extremely guarded. MMODL / IJN: [id number] /
[2024-05-12] MEDS: FUROSEMIDE 10 MG/ML 4 ML VIAL IV STA (07:13)
--- NOTE | 2024-05-12 11:58 | P.PN ---
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 Poor air entry on the left side is present, afebrile with oxygen saturation of 95%, transiently patient did drop down to 90% on lower oxygen. CT scan of the chest reviewed moderate to significant left-sided pleural effusion with compressive atelectasis of the left side, patient will benefit from Pleurx catheter placement, discussed with primary service, will consult CT surgery May 09, 2024, patient seen evaluate examined during rounds labs reviewed medications reviewed care plan discussed, patient remains afebrile, oxygen saturation is 96% on 3 L, hemodynamic status stable, labs not done today. Patient remains on Colon as needed for pain control, DuoNeb unit dose 4 times a day also inhaled corticosteroids 2 times a day patient remains on IV Rocephin 2 g daily tolerating well, antihypertensive agents being continued May 08, 2024, patient seen eval examined during rounds labs reviewed medications reviewed care plan discussed, patient is very weak tired on 2 L oxygen, oxygen saturation 92%, hemodynamic status stable blood pressure 110/70 heart rate is 110 patient is afebrile. Brain MRI is negative for any metastatic disease, patient is being treated with left leg cellulitis and left leg wound, patient is being treated with IV Rocephin subsequently to be switched to Ceftin, chest x-ray and CT scan finding as noted above 84-year-old female with end-stage COPD as well as metastatic lung cancer with pleural effusion, patient was discharged 2 days ago from the hospital after left thoracentesis, EMS were notified by son due to weakness tiredness not feeling well, patient was recommended for rehab placement prior but she declined of note that at home she was not able to take care of herself worsening weakness ongoing shortness of breath present however denies any fever chills night sweats denies any chest pain cough or sputum production now patient is agreeable for placement in rehab. Labs reviewed WBC count 12.4, hemoglobin hematocrit is 10/32 coags okay chemistry sodium 136 potassium 4 BUN/creatinine 50/1.08 glucose 185 on 2 L oxygen saturation 100% came down to 99% 1.5 L currently patient has been started resumed on DuoNeb along with home medications and Pulmicort she has been resumed on Bumex as she is taking before and Singulair and her ECG is nonspecific changes sinus tachycardia. Chest x-ray cardiomegaly pleural effusion CT scan of the chest tiny left pleural effusion no right pleural effusion extensive emphysema and COPD with evidence of aspiration pneumonia on the left side. Of note that cytology came back positive for squamous cell lung cancer Objective - Vital Signs Vital signs: Vital Signs Temp 97.0 F L 05/12/24 01:56 Pulse 99 05/12/24 11:37 Resp 19 05/12/24 06:56 BP 146/85 05/12/24 06:56 Pulse Ox 95 05/12/24 08:00 FiO2 Intake & Output 05/11/24 05/12/24 05/12/24 18:59 06:59 18:59 Output Total 500 250 Balance -500 -250 Output: Urine 500 250 Other: Voiding Method External Catheter Indwelling Catheter Indwelling Catheter # Bowel Movements 1 - Exam - Constitutional General appearance: average body habitus, ill-appearing very short of breath - EENT Eyes: PERRLA Ears: bilateral: normal - Neck Neck: normal ROM Carotids: bilateral: upstroke normal - Respiratory Respiratory: bilateral: Wet air entry however reduced air entry on the left side, bilateral basal rales - Cardiovascular Rhythm: regular Heart sounds: normal: S1, S2 - Gastrointestinal General gastrointestinal: normal bowel sounds - Neurologic Neurologic: CNII-XII intact, arousable but very weak ill-appearing follows simp le commands moving all 4 extremities - Musculoskeletal Musculoskeletal: gait normal, generalized weakness, strength equal bilaterally - Psychiatric Psychiatric: Somnolent but arousable A&O x's 3, appropriate affect, intact judgment & insight - Labs CBC & Chem 7: 05/10/24 04:09 05/10/24 04:09 Assessment and Plan Assessment: Recurrent left-sided malignant pleural effusion Left leg wound and cellulitis Generalized weakness and medical debility Left lower lobe pneumonia Acute on chronic hypoxic respiratory failure Metastatic squamous cell lung cancer Pleural fluid cytology positive for squamous cell cancer Generalized weakness and medical debility History COPD Plan: IV antibiotics Consult CT surgery for Pleurx catheter placement for therapeutic and palliative intent Home medications, to be continued Continue bronchodilators along with IV steroids Oncology evaluation recommendation noted ID recommendation noted as well Time with Patient: Greater than 30
--- NOTE | 2024-05-12 12:52 | P.CRDCN ---
History of Present Illness Consult date: 05/12/24 Consult reason: congestive heart failure History of present illness: Patient is an 84-year-old female who has had multiple admissions for shortness of breath and recurrent left-sided malignant pleural effusions. She has undergone multiple thoracentesis and is being followed by pulmonology. Cardiology has been consulted for congestive heart failure in the setting of recurrent pleural effusion. DIAGNOSTICS: EKG shows sinus tachycardia with heart rates in the low 100s Telemetry shows sinus mechanism with heart rates in the 90s CT scan of the chest shows moderate left pleural effusion, which is increasing compared to previous scans. Patchy opacity in the right lower lung, indicating combination of atelectasis and pneumonia REVIEW OF SYSTEMS: No current chest discomfort. Patient does have difficulty breathing. Denies palpitations. PHYSICAL EXAMINATION: This is a 84-year-old obese female in no apparent distress at the time of my examination. HEENT: Head is atraumatic, normocephalic. Pupils are equal, round. There is no jugular venous distention. No carotid bruit is heard. CHEST EXAMINATION: Lungs are coarse to auscultation. Bilateral rhonchi. No chest wall tenderness is noted on palpation or with deep breathing. HEART EXAMINATION: Heart regular rate and rhythm. S1, S2 heard. Systolic murmur. No gallops or rub. ABDOMEN: Soft, nontender. Bowel sounds are heard. No organomegaly noted. EXTREMITIES: 2+ peripheral pulses with no evidence of peripheral edema and no calf tenderness noted. NEUROLOGIC EXAMINATION: Patient is awake, alert and oriented x3. FINAL ASSESSMENT AND PLAN: Recurrent left-sided malignant pleural effusion, not indicative of congestive heart failure Generalized weakness and debility Left lower lobe pneumonia Acute on chronic hypoxic respiratory failure Metastatic squamous cell lung cancer PLAN: Continue IV Lasix No further recommendations from the cardiac standpoint I am dictating on behalf of Dr Niko Greenwood's history/physical and assessment/plan. 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 History of Any Multi-Drug Resistant Organisms: None Reported Past Surgical History: Appendectomy, Bowel Resection, Ear Surgery, Heart Catheterization With Stent, Hernia Repair, Hysterectomy, Tonsillectomy Additional Past Surgical History / Comment(s): Colon/bowel surgery done in her 30's-21 inches removed, bilateral cataracts removed, bilateral laser eye surgery, hemorroidectomy, hiatal hernia, robotic rt upper lobectomy w/mediastinal lymph node dissection, 1 cardiac stent Past Anesthesia/Blood Transfusion Reactions: No Reported Reaction Additional Past Anesthesia/Blood Transfusion Reaction / Comment(s): no hx blood transfusion Date of Last Stent Placement:: 01/01/18 Past Psychological History: No Psychological Hx Reported Additional Psychological History / Comment(s): . Smoking Status: Former smoker Past Alcohol Use History: None Reported Additional Past Alcohol Use History / Comment(s): quit smoking 07/18/17 smoked since age 20 1 12ppd Past Drug Use History: None Reported - Past Family History Father Family Medical History: CVA/TIA, Myocardial Infarction ([place]) Mother Family Medical History: Cancer Additional Family Medical History / Comment(s): bowel cancer Medications and Allergies Home Medications Medication Instructions Recorded Confirmed Type ALPRAZolam [Xanax] 0.5 mg PO TID PRN 03/19/14 05/02/24 History Montelukast [Singulair] 10 mg PO DAILY 09/15/17 05/02/24 History Famotidine [Pepcid] 40 mg PO BID 04/27/21 05/02/24 History Budesonide [Pulmicort] 0.5 mg INHALATION RT-BID 05/24/23 05/02/24 History Ipratropium-Albuterol Nebulize 3 ml INHALATION RT-QID 05/24/23 05/02/24 History [Duoneb 0.5 mg-3 mg/3 ml Soln] Loratadine [Claritin] 10 mg PO DAILY 05/24/23 05/02/24 History Potassium Chloride ER [K-Dur 20] 20 meq PO DAILY 05/24/23 05/02/24 History Atorvastatin [Lipitor] 40 mg PO DAILY 90 Days #90 tab 10/13/23 05/02/24 Rx Metoprolol Succinate (ER) [Toprol 25 mg PO DAILY 90 Days #90 tab 10/13/23 05/02/24 Rx XL] HYDROcodone/APAP 10-325MG [[place]raw[place] 1 tab PO TID PRN 04/22/24 05/02/24 History 10-325] Aspirin 81 mg PO DAILY tab 04/29/24 05/02/24 Rx Bumetanide [BUMEX] 1 mg PO DAILY 90 Days #90 tab 04/29/24 05/02/24 Rx Lactulose [Cephulac] 20 gm PO TID 30 Days #90 ml 04/29/24 05/02/24 Rx Allergies Allergy/AdvReac Type Severity Reaction Status Date / Time Penicillins Allergy Rash/Hives Verified 05/02/24 18:04 Physical Exam Vitals: Vital Signs Temp Pulse Pulse Resp BP Pulse Ox 05/12/24 11:37 99 05/12/24 11:27 96 05/12/24 08:12 98 05/12/24 08:00 97 95 05/12/24 06:56 102 H 19 146/85 94 L 05/12/24 03:46 93 90 L 05/12/24 01:56 97.0 F L 91 19 125/74 100 05/11/24 21:16 99 05/11/24 21:09 96 05/11/24 19:48 97.7 F 92 20 133/80 93 L 05/11/24 15:47 96 05/11/24 13:49 98 16 126/73 90 L Intake and Output 05/11/24 05/12/24 05/12/24 22:59 06:59 14:59 Output Total 500 250 Balance -500 -250 Output: Urine 500 250 Other: Voiding Method Indwelling Catheter Indwelling Catheter # Bowel Movements 1 Results 05/10/24 04:09 05/10/24 04:09 Current Medications Generic Name Dose Route Start Last Admin Trade Name Freq PRN Reason Stop Dose Admin Hydrocodone Bitart/Acetaminophen 1 each 05/02/24 19:56 05/12/24 10:29 Hydrocodone/Apap 10-325mg 1 Each Tab PO 1 each TID PRN Administration Pain Albuterol/Ipratropium 3 ml 05/02/24 20:00 05/12/24 11:25 Ipratropium-Albuterol 3 Ml Neb INHALATION 3 ml RT-QID SIDDHARTH Administration Alprazolam 0.5 mg 05/02/24 19:56 05/12/24 06:16 Alprazolam 0.5 Mg Tab PO 0.5 mg TID PRN Administration Anxiety Aspirin 81 mg 05/03/24 09:00 05/12/24 09:35 Aspirin 81 Mg PO 81 mg DAILY SIDDHARTH Administration Atorvastatin Calcium 40 mg 05/03/24 09:00 05/12/24 09:35 Atorvastatin 40 Mg Tab PO 40 mg DAILY SIDDHARTH Administration Budesonide 0.5 mg 05/02/24 20:00 05/12/24 07:55 Budesonide 0.5 Mg/2 Ml Nebu INHALATION 0.5 mg RT-BID SIDDHARTH Administration Cyanocobalamin 1,000 mcg 05/09/24 09:15 05/12/24 09:36 Cyanocobalamin 1,000 Mcg/Ml 1 Ml Vial IM 05/13/24 09:01 1,000 mcg DAILY SIDDHARTH Administration Famotidine 20 mg 05/05/24 09:00 05/12/24 09:35 Famotidine 20 Mg Tab PO 20 mg BID SIDDHARTH Administration Furosemide 40 mg 05/10/24 09:00 05/12/24 10:29 Furosemide 10 Mg/Ml 4 Ml Vial IV 40 mg DAILY SIDDHARTH Administration Ceftriaxone Sodium 2 gm/ 50 mls @ 100 mls/hr 05/06/24 09:00 05/12/24 09:35 Sodium Chloride IVPB 100 mls/hr Q24HR SIDDHARTH Administration Protocol Azithromycin 500 mg/ Sodium 250 mls @ 250 mls/hr 05/11/24 14:00 05/12/24 11:56 Chloride IVPB 05/13/24 12:59 250 mls/hr DAILY@1200 SIDDHARTH Administration Protocol Fluconazole/Sodium Chloride 50 mls @ 50 mls/hr 05/11/24 14:00 05/11/24 15:03 100 mg/ IV Solution IVPB 50 mls/hr DAILY@1200 SIDDHARTH Administration Protocol Lactulose 20 gm 05/02/24 22:00 05/12/24 09:36 Lactulose 20 Gm/30 Ml Cup PO 20 gm TID SIDDHARTH Administration Lidocaine 1 patch 05/09/24 20:00 05/12/24 09:35 Lidocaine 4% Patch TOPICAL 1 patch DAILY SIDDHARTH Administration Protocol Loratadine 10 mg 05/03/24 09:00 05/12/24 09:35 Loratadine 10 Mg Tab PO 10 mg DAILY SIDDHARTH Administration Methylprednisolone Sodium Succinate 60 mg 05/10/24 18:15 05/12/24 05:49 Methylprednisolone Sod Succi 125 Mg/2 Ml Vial IV 60 mg Q6HR SIDDHARTH Administration Metoprolol Succinate 25 mg 05/03/24 09:00 05/12/24 09:35 Metoprolol Succinate (Er) 25 Mg Tab.Er.24h PO 25 mg DAILY SIDDHARTH Administration Metronidazole 500 mg 05/03/24 16:00 05/12/24 09:35 Metronidazole 500 Mg Tab PO 500 mg TID SIDDHARTH Administration Protocol Montelukast Sodium 10 mg 05/03/24 09:00 05/12/24 09:35 Montelukast 10 Mg Tab PO 10 mg DAILY SIDDHARTH Administration Naloxone HCl 0.2 mg 05/02/24 19:52 Naloxone 0.4 Mg/Ml 1 Ml Vial IV Q2M PRN Opioid Reversal Nystatin 1 applic 05/10/24 21:00 05/12/24 09:36 Nystatin 100,000 Unit/Gm Powd 15 Gm TOPICAL 1 applic BID SIDDHARTH Administration Protocol Petrolatum 1 applic 05/09/24 02:04 Zinc Oxide Paste (Z-Guard) 1 Applic TOPICAL DAILY PRN Wound Healing Protocol Potassium Chloride 20 meq 05/03/24 09:00 05/12/24 09:35 Potassium Chloride Er 20 Meq Tab.Er PO 20 meq DAILY SIDDHARTH Administration Sodium Chloride 10 ml 05/09/24 21:00 05/12/24 10:26 Sodium Chloride 0.9% Flush 10 Ml Syringe IV 10 ml Q12HR SIDDHARTH Administration Intake and Output 05/11/24 05/12/24 05/12/24 22:59 06:59 14:59 Output Total 500 250 Balance -500 -250 Output: Urine 500 250 Other: Voiding Method Indwelling Catheter Indwelling Catheter # Bowel Movements 1 05/10/24 04:09 05/10/24 04:09
--- NOTE | 2024-05-12 15:27 | P.PN ---
Subjective Progress Note Date: 05/12/24 Principal diagnosis: Reason for follow-up is left lower extremity wound and cellulitis Patient is a 84-year-old female past medical history significant for hypertension hyperlipidemia COPD osteoarthritis pneumonia coronary artery disease in this patient presenting to the hospital for evaluation of worsening debility along with shortness of breath, patient also have a traumatic wound to the left lower extremity concerning for wound infection cellulitis prompted this consultation. On today's evaluation that is 05/12/2024, Patient is afebrile patient is slightly sleepy lethargic today not a very good historian requiring high flow nasal cannula oxygen no vomiting diarrhea any change reported by the nursing staff. No new lab has been repeated today Objective - Vital Signs Vital signs: Vital Signs Temp 96.9 F L 05/12/24 13:49 Pulse 100 05/12/24 13:49 Resp 17 05/12/24 13:49 BP 123/86 05/12/24 13:49 Pulse Ox 94 L 05/12/24 13:49 FiO2 Intake & Output 05/11/24 05/12/24 05/12/24 18:59 06:59 18:59 Output Total 500 250 Balance -500 -250 Output: Urine 500 250 Other: Voiding Method External Catheter Indwelling Catheter Indwelling Catheter # Bowel Movements 1 - Exam Elderly female up in the chair in no distress No tachypnea or accessory muscle respiration use Unlabored breathing Left leg wound decreased in size less drainage - Labs CBC & Chem 7: 05/10/24 04:09 05/10/24 04:09 Assessment and Plan (1) Leg wound, left Current Visit: Yes Status: Acute Code(s): S81.802A - UNSPECIFIED OPEN WOUND, LEFT LOWER LEG, INITIAL ENCOUNTER SNOMED Code(s): 89156685080108841 (2) Left leg cellulitis Current Visit: Yes Status: Acute Code(s): L03.116 - CELLULITIS OF LEFT LOWER LIMB SNOMED Code(s): 39798151367301639 (3) Penicillin allergy Current Visit: Yes Status: Acute Code(s): Z88.0 - ALLERGY STATUS TO PENIC ILLIN SNOMED Code(s): 45658387 Plan: 1patient presenting to the hospital with increasing weakness and debility and this patient also have a wound to the left lower extremity started as a trauma 2 weeks ago with progressive worsening patient was noticed to have a significantly wound with a foul-smelling concerning for wound infection possibly gram- negative/anaerobes 2-patient did have left-sided effusion, clinical not behaving as pneumonia did have normal procalcitonin, her Levaquin was discontinued 3-penicillin allergy that will remain the number of antibiotics safe to use 4-local culture has been obtained which is currently growing Streptococcus anginosus, anaerobe cultures growing anaerobic Gram negative bacilli 5-local wound care with the Medihoney followed by moist dressing change daily a 6-patient did have significant findings on the CT of the chest for which CT surgery has been consulted for Pleurx catheter replacement fluid should be obtained for culture for now continue with Rocephin and Flagyl and monitor clinical course closely Dictation was produced using [employer] dictation software. please excuse any grammatical, word or spelling errors. Time with Patient: Less than 30
--- NOTE | 2024-05-13 02:44 | PN ---
PROGRESS NOTE Patient may need a pleurocentesis per Dr. Yang. He is going to consult Chest Surgery he says. PHYSICAL EXAMINATION: CARDIOVASCULAR: S1 and S2. LUNGS: Scattered wheeze and rhonchi. HEMATOLOGY: 2 to 3+ edema. Inspiratory and expiratory wheezes. VITAL SIGNS: Reviewed. IMAGING DATA: CAT scan shows worsening pleural effusion. Recurrent left-sided malignant pleural effusion, generalized weakness, debility, left lower lobe pneumonia, acute on chronic hypoxemic respiratory failure, and metastatic squamous cell cancer. Cardiology just going to continue with the Lasix. Hopefully, Cardiac Surgery can possibly do something. Remains on broad-spectrum antibiotics. Dr. Yang is going to talk to Cardiac Surgery about pleurodesis too. MMODL / IJN: [id number] /
--- NOTE | 2024-05-13 11:20 | P.PN ---
Subjective Progress Note Date: 05/13/24 Consult reason: congestive heart failure History of present illness: Patient is an 84-year-old female who has had multiple admissions for shortness of breath and recurrent left-sided malignant pleural effusions. She has undergone multiple thoracentesis and is being followed by pulmonology. Cardiology has been consulted for congestive heart failure in the setting of recurrent pleural effusion. DIAGNOSTICS: EKG shows sinus tachycardia with heart rates in the low 100s Telemetry shows sinus mechanism with heart rates in the 90s CT scan of the chest shows moderate left pleural effusion, which is increasing compared to previous scans. Patchy opacity in the right lower lung, indicating combination of atelectasis and pneumonia 05/13 Patient is seen and examined. Patient is currently on O2 at 15 L high flow nasal cannula with pulse ox of 94%. Heart rate is in the 90s, blood pressure 112/76. Telemetry sinus rhythm. Patient has been maintained on IV Lasix 40 mg daily. No labs since 05/10. PHYSICAL EXAMINATION: This is a 84-year-old obese female in no apparent distress at the time of my examination. HEENT: Head is atraumatic, normocephalic. Pupils are equal, round. There is no jugular venous distention. No carotid bruit is heard. CHEST EXAMINATION: Lungs are coarse to auscultation. Bilateral rhonchi. No chest wall tenderness is noted on palpation or with deep breathing. HEART EXAMINATION: Heart regular rate and rhythm. S1, S2 heard. Systolic murmur. No gallops or rub. ABDOMEN: Soft, nontender. Bowel sounds are heard. No organomegaly noted. EXTREMITIES: 2+ peripheral pulses with no evidence of peripheral edema and no calf tenderness noted. FINAL ASSESSMENT AND PLAN: Recurrent left-sided malignant pleural effusion, not indicative of congestive heart failure Generalized weakness and debility Left lower lobe pneumonia Acute on chronic hypoxic respiratory failure Metastatic squamous cell lung cancer PLAN: Continue IV Lasix Ordered stat BMP No further recommendations from the cardiac standpoint Nurse practitioner note has been reviewed, I agree with documented findings and plan of care. Patient was seen and examined. Objective - Vital Signs Vital signs: Vital Signs Temp 96.8 F L 05/13/24 06:50 Pulse 102 H 05/13/24 08:21 Resp 16 05/13/24 06:50 BP 112/76 05/13/24 06:50 Pulse Ox 94 L 05/13/24 06:50 FiO2 Intake & Output 05/12/24 05/13/24 05/13/24 18:59 06:59 18:59 Output Total 110 80 Balance -110 -80 Output: Urine 110 80 Other: Voiding Method Indwelling Catheter Indwelling Catheter # Bowel Movements 0 - Labs CBC & Chem 7: 05/10/24 04:09 05/10/24 04:09
--- NOTE | 2024-05-13 11:32 | PN ---
PROGRESS NOTE Aspiration pneumonia. MMODL / IJN: [id number] /
[2024-05-13 12:07] LABS: African American GFR (CKD) 17 (>60 ml/min/1.73 sqM); Anion Gap 11 mmol/L; Blood Urea Nitrogen 59 mg/dL (7-17); Calcium 8.7 mg/dL (8.4-10.2); Carbon Dioxide 27 mmol/L (22-30); Chloride 104 mmol/L (98-107); Glucose 208 mg/dL (74-99); Non-African American GFR(CKD) 15 (>60 ml/min/1.73 sqM); Sodium 142 mmol/L (137-145)
[2024-05-13 12:10] LABS: Potassium 4.4 mmol/L (3.5-5.1)
--- NOTE | 2024-05-13 17:11 | P.PN ---
Subjective Progress Note Date: 05/13/24 Principal diagnosis: Recurrent malignant pleural effusion on left side Advised weakness and medical debility Left lower lobe pneumonia Acute on chronic hypoxic respiratory failure Metastatic squamous cell lung cancer Pleural fluid cytology positive for squamous cell cancer Generalized weakness and medical debility History COPD May 13, 2024, patient seen eval examined during rounds, also discussed with cardiothoracic surgery at length, patient on 6 L oxygen saturation is mid 70s however escalation of oxygen to 15 l improved with oxygen into high 80s low 90s, patient mask also readjusted. Patient is awake but nonverbal noncommunicative restless anxious. Cardiothoracic surgery feeds patient is a high risk candidate for giving anesthesia and appropriate positioning. Also as noted nurse mentioned about family leaning towards hospice May 12, 2024, patient seen eval examined during rounds labs reviewed medications reviewed care plan discussed, patient oxygen requirement continues to rise currently on 15 L high flow oxygen patient sounds wet but however did not response to 40 mg of IV furosemide. Poor air entry on the left side is present, afebrile with oxygen saturation of 95%, transiently patient did drop down to 90% on lower oxygen. CT scan of the chest reviewed moderate to significant left-sided pleural effusion with compressive atelectasis of the left side, patient will benefit from Pleurx catheter placement, discussed with primary service, will consult CT surgery May 09, 2024, patient seen evaluate examined during rounds labs reviewed medications reviewed care plan discussed, patient remains afebrile, oxygen saturation is 96% on 3 L, hemodynamic status stable, labs not done today. Patient remains on [place] as needed for pain control, DuoNeb unit dose 4 times a day also inhaled corticosteroids 2 times a day patient remains on IV Rocephin 2 g daily tolerating well, antihypertensive agents being continued May 08, 2024, patient seen eval examined during rounds labs reviewed medications reviewed care plan discussed, patient is very weak tired on 2 L oxygen, oxygen saturation 92%, hemodynamic status stable blood pressure 110/70 heart rate is 110 patient is afebrile. Brain MRI is negative for any metastatic disease, patient is being treated with left leg cellulitis and left leg wound, patient is being treated with IV Rocephin subsequently to be switched to Ceftin, chest x-ray and CT scan finding as noted above 84-year-old female with end-stage COPD as well as metastatic lung cancer with pleural effusion, patient was discharged 2 days ago from the hospital after left thoracentesis, EMS were notified by son due to weakness tiredness not feeling well, patient was recommended for rehab placement prior but she declined of note that at home she was not able to take care of herself worsening weakness ongoing shortness of breath present however denies any fever chills night sweats denies any chest pain cough or sputum production now patient is agreeable for placement in rehab. Labs reviewed WBC count 12.4, hemoglobin hematocrit is 10/32 coags okay chemistry sodium 136 potassium 4 BUN/creatinine 50/1.08 glucose 185 on 2 L oxygen saturation 100% came down to 99% 1.5 L currently patient has been started resumed on DuoNeb along with home medications and Pulmicort she has been resumed on Bumex as she is taking before and Singulair and her ECG is nonspecific changes sinus tachycardia. Chest x-ray cardiomegaly pleural effusion CT scan of the chest tiny left pleural effusion no right pleural effusion extensive emphysema and COPD with evidence of aspiration pneumonia on the left side. Of note that cytology came back positive for squamous cell lung cancer Objective - Vital Signs Vital signs: Vital Signs Temp 97.1 F L 05/13/24 14:42 Pulse 98 05/13/24 15:52 Resp 16 05/13/24 14:42 BP 152/69 05/13/24 14:42 Pulse Ox 93 L 05/13/24 14:42 FiO2 Intake & Output 05/12/24 05/13/24 05/13/24 18:59 06:59 18:59 Output Total 110 80 1 Balance -110 -80 -1 Weight 81.647 kg Output: Urine 110 80 Stool 1 Other: Voiding Method Indwelling Catheter Indwelling Catheter Indwelling Catheter # Bowel Movements 0 - Exam - Constitutional General appearance: average body habitus, ill-appearing very short of breath - EENT Eyes: PERRLA Ears: bilateral: normal - Neck Neck: normal ROM Carotids: bilateral: upstroke normal - Respiratory Respiratory: bilateral: Wet air entry however reduced air entry on the left side, bilateral basal rales - Cardiovascular Rhythm: regular Heart sounds: normal: S1, S2 - Gastrointestinal General gastrointestinal: normal bowel sounds - Neurologic Neurologic: CNII-XII intact, arousable but very weak ill-appearing follows simple commands moving all 4 extremities - Musculoskeletal Musculoskeletal: gait normal, generalized weakness, strength equal bilaterally - Psychiatric Psychiatric: Somnolent but arousable A&O x's 3, appropriate affect, intact judgment & insight - Labs CBC & Chem 7: 05/10/24 04:09 05/13/24 10:43 Labs: Abnormal Lab Results - Last 24 Hours (Table) 05/13/24 Range/Units 10:43 BUN 59 H (7-17) mg/dL Creatinine 2.90 H (0.52-1.04) mg/dL Glucose 208 H (74-99) mg/dL Assessment and Plan Assessment: Altered mental status encephalopathy due to severe hypoxia deconditioning and metastatic lung cancer Recurrent left-sided malignant pleural effusion Left leg wound and cellulitis Generalized weakness and medical debility Left lower lobe pneumonia Acute on chronic hypoxic respiratory failure Metastatic squamous cell lung cancer Pleural fluid cytology positive for squamous cell cancer Generalized weakness and medical debility History COPD Plan: It appears that even palliative Pleurx catheter could not be materialized IV antibiotics Discussed with CT surgery for Pleurx catheter placement for therapeutic and palliative intent, however patient appeared to be decompensating with very shallow respiration family leaning towards hospice Continue supportive measure, prognosis poor even at best Oncology evaluation recommendation noted ID recommendation noted as well Time with Patient: Greater than 30
--- NOTE | 2024-05-13 17:24 | P.GSCN ---
History of Present Illness Consult date: 05/13/24 Reason for Consult: Recurrent left pleural effusion Requesting physician: Pablo Yang History of present illness: This is an 84-year-old female patient who follows on an outpatient basis for her primary care with Dr. Billy Saul and follows with Dr. Yang for her pulmonary care. She has a past medical history significant for stage IV metastatic cancer, chronically on 2 L nasal cannula at home, previous recurrent right pleural effusion with history of Pleurx catheter placement, history of left pleural effusion status post left thoracentesis on April 29, 2024 by interventional radiology with 500 mL of fluid drained, hypertension, hyperlipidemia, coronary artery disease status post stenting in December 2017, asthma, obesity, osteoarthritis, COPD, anxiety and remote history of nicotine dependence. On May 02, 2024 the patient presented to the emergency department here at [facility] via EMS with complaints of shortness of breath and debility. A chest x-ray was completed at this time which showed cardiomegaly, and left pleural effusion. For further evaluation a CT scan of her chest was completed which showed airspace opacities in the left lower lung with opacified airways, concerning for aspiration, trace left pleural effusion with pulmonary edema and cholelithiasis. Due to the patient's lung cancer a MRI of the brain was completed to evaluate for metastatic disease which showed mild generalized atrophy and moderate chronic ischemia white matter changes, no mass, mass effect or pathological enhancement and no acute ischemic event. A repeat CT scan of the chest was completed on May 10, 2024 which demonstrated mild cardiomegaly, extensive three-vessel coronary artery calci fications, increasing now moderate left pleural effusion, progressive volume loss and consolidation throughout the entire left lower lobe, groundglass airspace disease involving most of the left upper lobe, some patchy opacities right lower lung, collapsibility of the right and left mainstem bronchi, correlate for underlying bronchomalacia, background COPD and cholelithiasis. Subsequently due to the findings of increasing in size of left pleural effusion a consult was placed to Dr. Jabari Mix from cardiothoracic surgery for further evaluation and treatment recommendations including Pleurx catheter placement. Review of Systems A review of systems could not be completed at this time due to the patient's cognitive state. 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 History of Any Multi-Drug Resistant Organisms: None Reported Past Surgical History: Appendectomy, Bowel Resection, Ear Surgery, Heart Catheterization With Stent, Hernia Repair, Hysterectomy, Tonsillectomy Additional Past Surgical History / Comment(s): Colon/bowel surgery done in her 30's-21 inches removed, bilateral cataracts removed, bilateral laser eye surgery, hemorroidectomy, hiatal hernia, robotic rt upper lobectomy w/medias tinal lymph node dissection, 1 cardiac stent Past Anesthesia/Blood Transfusion Reactions: No Reported Reaction Additional Past Anesthesia/Blood Transfusion Reaction / Comm: no hx blood transfusion Date of Last Stent Placement:: 01/01/18 Past Psychological History: No Psychological Hx Reported Additional Psychological History / Comment(s): . Smoking Status: Former smoker Past Alcohol Use History: None Reported Additional Past Alcohol Use History / Comment(s): quit smoking 07/18/17 smoked since age 20 1 1/2ppd Past Drug Use History: None Reported - Past Family History Father Family Medical History: CVA/TIA, Myocardial Infarction ([place]) Mother Family Medical History: Cancer Additional Family Medical History / Comment(s): bowel cancer Medications and Allergies Home Medications Medication Instructions Recorded Confirmed Type ALPRAZolam [Xanax] 0.5 mg PO TID PRN 03/19/14 05/02/24 History Montelukast [Singulair] 10 mg PO DAILY 09/15/17 05/02/24 History Famotidine [Pepcid] 40 mg PO BID 04/27/21 05/02/24 History Budesonide [Pulmicort] 0.5 mg INHALATION RT-BID 05/24/23 05/02/24 History Ipratropium-Albuterol Nebulize 3 ml INHALATION RT-QID 05/24/23 05/02/24 History [Duoneb 0.5 mg-3 mg/3 ml Soln] Loratadine [Claritin] 10 mg PO DAILY 05/24/23 05/02/24 History Potassium Chloride ER [K-Dur 20] 20 meq PO DAILY 05/24/23 05/02/24 History Atorvastatin [Lipitor] 40 mg PO DAILY 90 Days #90 tab 10/13/23 05/02/24 Rx Metoprolol Succinate (ER) [Toprol 25 mg PO DAILY 90 Days #90 tab 10/13/2305/02 Rx XL] HYDROcodone/APAP 10-325MG [[place] 1 tab PO TID PRN 04/22/24 05/02/24 History 10-325] Aspirin 81 mg PO DAILY tab 04/29/24 05/02/24 Rx Bumetanide [BUMEX] 1 mg PO DAILY 90 Days #90 tab 04/29/24 05/02/24 Rx Lactulose [Cephulac] 20 gm PO TID 30 Days #90 ml 04/29/24 05/02/24 Rx Allergies Allergy/AdvReac Type Severity Reaction Status Date / Time Penicillins Allergy Rash/Hives Verified 05/02/24 18:04 Surgical - Exam Vital Signs Temp Pulse Resp BP Pulse Ox 98.0 F 110 H 22 117/66 98 05/02/24 16:57 05/02/24 16:57 05/02/24 16:57 05/02/24 16:57 05/02/24 16:57 - General well developed, well nourished, moderate distress (Patient with agonal respirati ons, oxygen saturations 88% on 15 L nasal cannula), no pain, chronically ill, obese - Eyes PERRL, normal ocular movement, no pale, no icteric - ENT normal pinna, normal nares, normal mucosa, no hearing loss, no congestion - Neck no masses, no bruits, trachea midline, no venous distension - Respiratory Respirations symmetrical and slightly labored with some agonal respirations. Lung sounds with diminished air entry throughout. Oxygen saturations 88% on 15 L nasal cannula at this time - Cardiovascular Regular rhythm and rate. S1 and S2 present, negative for S3, gallop or murmur. - Abdomen Abdomen is soft, nontender and nondistended. Active bowel sounds present all 4 abdominal quadrants. No guarding or rigidity. No organomegaly appreciated. - Genitourinary Deferred - Rectum Deferred - Integumentary Skin is warm and dry. no rash, no growths, no abnormal pigmentation - Neurologic Unable to accurately at the cyst at this time as the patient is not answering questions. - Musculoskeletal Medical debility - Psychiatric Unable to assess at this time as the patient is not communicating. Results - Labs 05/10/24 04:09 05/13/24 10:43 Abnormal Lab Results - Last 24 Hours (Table) 05/13/24 Range/Units 10:43 BUN 59 H (7-17) mg/dL Creatinine 2.90 H (0.52-1.04) mg/dL Glucose 208 H (74-99) mg/dL Diabetes panel 05/13/24 Range/Units 10:43 Sodium 142 (137-145) mmol/L Potassium 4.4 (3.5-5.1) mmol/L Chloride 104 (98-107) mmol/L Carbon Dioxide 27 (22-30) mmol/L BUN 59 H (7-17) mg/dL Creatinine 2.90 H (0.52-1.04) mg/dL Glucose 208 H (74-99) mg/dL Calcium 8.7 (8.4-10.2) mg/dL Calcium panel 05/13/24 Range/Units 10:43 Calcium 8.7 (8.4-10.2) mg/dL Pituitary panel 05/13/24 Range/Units 10:43 Sodium 142 (137-145) mmol/L Potassium 4.4 (3.5-5.1) mmol/L Chloride 104 (98-107) mmol/L Carbon Dioxide 27 (22-30) mmol/L BUN 59 H (7-17) mg/dL Creatinine 2.90 H (0.52-1.04) mg/dL Glucose 208 H (74-99) mg/dL Calcium 8.7 (8.4-10.2) mg/dL Adrenal panel 05/13/24 Range/Units 10:43 Sodium 142 (137-145) mmol/L Potassium 4.4 (3.5-5.1) mmol/L Chloride 104 (98-107) mmol/L Carbon Dioxide 27 (22-30) mmol/L BUN 59 H (7-17) mg/dL Creatinine 2.90 H (0.52-1.04) mg/dL Glucose 208 H (74-99) mg/dL Calcium 8.7 (8.4-10.2) mg/dL - Imaging Chest x-ray: report reviewed, image reviewed CT scan - chest: report reviewed, image reviewed Assessment and Plan Assessment: Recurrent left-sided malignant pleural effusions, status post recent left thoracentesis with 500 mL removed by interventional radiology History of recurrent right pleural effusions with previous Pleurx catheter placement Metastatic squamous cell lung cancer Acute on chronic hypoxic respiratory failure, on home oxygen Medical debility COPD History of coronary artery disease with previous PCI History of asthma Obesity with BMI of 32.9 kg/m Anxiety Remote history of nicotine dependence Plan: The patient was seen and examined at her bedside on the fourth floor medical surgical unit. Her chart and diagnostics were reviewed. The patient has stage IV metastatic cancer, is currently on 15 L nasal cannula with oxygen saturation at 88%. The patient would be considered for a left Pleurx catheter placement for palliative measures if the patient is perceived to being discharged home. Currently the patient is non compos mentis, and is quite medically debilitated. According to the bedside nurse the patient's family was considering placing the patient on hospice possibly comfort care. Medical management other com orbidities per primary care service. Thank you Dr. Yang for this consult and we look forward to working in the care of this patient. I have personally seen and examined the patient, performed the documentation and the assessment and plan as written. Number of minutes spent on the visit: 30. RENE Mccrary
[2024-05-13] MEDS: LORazepam 2 MG/ML INJ IV SCH (17:25)
--- NOTE | 2024-05-13 23:03 | P.PN ---
Subjective Progress Note Date: 05/13/24 Principal diagnosis: Reason for follow-up is left lower extremity wound and cellulitis Patient is a 84-year-old female past medical history significant for hypertension hyperlipidemia COPD osteoarthritis pneumonia coronary artery disease in this patient presenting to the hospital for evaluation of worsening debility along with shortness of breath, patient also have a traumatic wound to the left lower extremity concerning for wound infection cellulitis prompted this consultation. On today's evaluation that is 05/13/2024, patient has been afebrile, patient did have worsening of respiratory status and is requiring high flow nasal cannula oxygen 15 L patient is lethargic not a very good historian no vomiting diarrhea any other changes reported by nursing staff. Patient did have a creatinine 2.90 no CBC was done today local culture with strep and anaerobe gram-negative bacilli Objective - Vital Signs Vital signs: Vital Signs Temp 96.8 F L 05/13/24 06:50 Pulse 100 05/13/24 11:47 Resp 16 05/13/24 06:50 BP 112/76 05/13/24 06:50 Pulse Ox 94 L 05/13/24 06:50 FiO2 Intake & Output 05/12/24 05/13/24 05/13/24 18:59 06:59 18:59 Output Total 110 80 Balance -110 -80 Output: Urine 110 80 Other: Voiding Method Indwelling Catheter Indwelling Catheter # Bowel Movements 0 - Exam Elderly female up in the chair in no distress No tachypnea or accessory muscle respiration use Unlabored breathing Left leg wound decreased in size less drainage - Labs CBC & Chem 7: 05/10/24 04:09 05/13/24 10:43 Labs: Abnormal Lab Results - Last 24 Hours (Table) 05/13/24 Range/Units 10:43 BUN 59 H (7-17) mg/dL Creatinine 2.90 H (0.52-1.04) mg/dL Glucose 208 H (74-99) mg/dL Assessment and Plan (1) Leg wound, left Current Visit: Yes Status: Acute Code(s): S81.802A - UNSPECIFIED OPEN WOUND, LEFT LOWER LEG, INITIAL ENCOUNTER SNOMED Code(s): 16729926919642865 (2) Left leg cellulitis Current Visit: Yes Status: Acute Code(s): L03.116 - CELLULITIS OF LEFT LOWER LIMB SNOMED Code(s): 77523436641940337 (3) Penicillin allergy Current Visit: Yes Status: Acute Code(s): Z88.0 - ALLERGY STATUS TO PENICILLIN SNOMED Code(s): 94134412 Plan: 1patient presenting to the hospital with increasing weakness and debility and this patient also have a wound to the left lower extremity started as a trauma 2 weeks ago with progressive worsening patient was noticed to have a significantly wound with a foul-smelling concerning for wound infection possibly gram- negative/anaerobes 2-patient did have left-sided effusion, clinical not behaving as pneumonia did have normal procalcitonin, her Levaquin was discontinued 3-penicillin allergy that will remain the number of antibiotics safe to use 4-local culture has been obtained which is currently growing Streptococcus anginosus, anaerobe cultures growing anaerobic Gram negative bacilli 5-local wound care with the Medihoney followed by moist dressing change daily a 6-patient did have significant findings on the CT of the chest for which CT surgery has been consulted for Pleurx catheter replacement await the recommendation however the patient also have worsening of her respiratory status and possible hospice oriented care as reported by the nursing staff which may be appropriate for her Dictation was produced using [employer] dictation software. please excuse any grammatical, word or spelling errors. Time with Patient: Less than 30
[2024-05-13 23:58] VITALS: TEMP 96.1
[2024-05-14] MEDS: LORazepam 2 MG/ML INJ IV PRN (06:43)
[2024-05-14 08:15] VITALS: BP 138/79; RESP 20
[2024-05-14 09:04] LABS: Glucose,Whole Blood 315 mg/dL (70-110)
[2024-05-14 09:39] VITALS: PULSE 100
--- NOTE | 2024-05-14 16:49 | DS ---
DISCHARGE SUMMARY SUBJECTIVE: Discussed with the son. The patient is not getting better. Pleural catheter is canceled. The patient is going to be scheduled for going to hospice care tomorrow. OBJECTIVE: VITAL SIGNS: Stable, afebrile. CARDIOVASCULAR: S1, S2. LUNGS: Scattered wheeze and rhonchi. HEMATOLOGY: Negative Homans. ASSESSMENT: Acute hypoxemic respiratory failure, metastatic lung cancer, malignant paracentesis for acute respiratory failure secondary to metastatic cancer, large pleural effusions. The patient was made comfort care. We will go on comfort care per family. MMODL / IJN: [id number] /
--- NOTE | 2024-05-14 20:49 | P.PN ---
Subjective Progress Note Date: 05/14/24 Principal diagnosis: Recurrent malignant pleural effusion on left side Advised weakness and medical debility Left lower lobe pneumonia Acute on chronic hypoxic respiratory failure Metastatic squamous cell lung cancer Pleural fluid cytology positive for squamous cell cancer Generalized weakness and medical debility History COPD May 14, 2024, patient in respiratory distress very restless on 15 L high flow oxygen with nonrebreather mask, saturation dropped down into mid 80s when she is restless improved to high 80s, patient remains unresponsive with eyes open, family is planning to gather later on this afternoon for hospice evaluation and consideration continue supportive care with comfort intent May 13, 2024, patient seen eval examined during rounds, also discussed with cardiothoracic surgery at length, patient on 6 L oxygen saturation is mid 70s however escalation of oxygen to 15 l improved with oxygen into high 80s low 90s, patient mask also readjusted. Patient is awake but nonverbal noncommunicative restless anxious. Cardiothoracic surgery feeds patient is a high risk candidate for giving anesthesia and appropriate positioning. Also as noted nurse mentioned about family leaning towards hospice May 12, 2024, patient seen eval examined during rounds labs reviewed medications reviewed care plan discussed, patient oxygen requirement continues to rise currently on 15 L high flow oxygen patient sounds wet but however did not response to 40 mg of IV furosemide. Poor air entry on the left side is present, afebrile with oxygen saturation of 95%, transiently patient did drop down to 90% on lower oxygen. CT scan of the chest reviewed moderate to significant left-sided pleural effusion with compressive atelectasis of the left side, patient will benefit from Pleurx catheter placement, discussed with primary service, will consult CT surgery May 09, 2024, patient seen evaluate examined during rounds labs reviewed medications reviewed care plan discussed, patient remains afebrile, oxygen saturation is 96% on 3 L, hemodynamic status stable, labs not done today. Patient remains on [place] as needed for pain control, DuoNeb unit dose 4 times a day also inhaled corticosteroids 2 times a day patient remains on IV Rocephin 2 g daily tolerating well, antihypertensive agents being continued May 08, 2024, patient seen eval examined during rounds labs reviewed medications reviewed care plan discussed, patient is very weak tired on 2 L oxygen, oxygen saturation 92%, hemodynamic status stable blood pressure 110/70 heart rate is 110 patient is afebrile. Brain MRI is negative for any metastatic disease, patient is being treated with left leg cellulitis and left leg wound, patient is being treated with IV Rocephin subsequently to be switched to Ceftin, chest x-ray and CT scan finding as noted above 84-year-old female with end-stage COPD as well as metastatic lung cancer with pleural effusion, patient was discharged 2 days ago from the hospital after left thoracentesis, EMS were notified by son due to weakness tiredness not feeling well, patient was recommended for rehab placement prior but she declined of note that at home she was not able to take care of herself worsening weakness ongoing shortness of breath present however denies any fever chills night sweats denies any chest pain cough or sputum production now patient is agreeable for placement in rehab. Labs reviewed WBC count 12.4, hemoglobin hematocrit is 10/32 coags okay chemistry sodium 136 potassium 4 BUN/creatinine 50/1.08 glucose 185 on 2 L oxygen saturation 100% came down to 99% 1.5 L currently patient has been started resumed on DuoNeb along with home medications and Pulmicort she has been resumed on Bumex as she is taking before and Singulair and her ECG is nonspecific changes sinus tachycardia. Chest x-ray cardiomegaly pleural effusion CT scan of the chest tiny left pleural effusion no right pleural effusion extensive emphysema and COPD with evidence of aspiration pneumonia on the left side. Of note that cytology came back positive for squamous cell lung cancer Objective - Vital Signs Vital signs: Vital Signs Temp 96.1 F L 05/14/24 02:08 Pulse 100 05/14/24 09:39 Resp 20 05/14/24 07:30 BP 138/79 05/14/24 07:30 Pulse Ox 86 L 05/14/24 09:10 FiO2 Intake & Output 05/13/24 05/14/24 05/14/24 18:59 06:59 18:59 Output Total 51 100 Balance -51 -100 Weight 81.647 kg Output: Urine 50 100 Stool 1 Other: Voiding Method Indwelling Catheter Indwelling Catheter # Bowel Movements 0 - Exam - Constitutional General appearance: average body habitus, ill-appearing very short of breath - EENT Eyes: PERRLA Ears: bilateral: normal - Neck Neck: normal ROM Carotids: bilateral: upstroke normal - Respiratory Respiratory: bilateral: Wet air entry however reduced air entry on the left side, bilateral basal rales - Cardiovascular Rhythm: regular Heart sounds: normal: S1, S2 - Gastrointestinal General gastrointestinal: normal bowel sounds - Neurologic Neurologic: CNII-XII intact, arousable but very weak ill-appearing follows simple commands moving all 4 extremities - Musculoskeletal Musculoskeletal: gait normal, generalized weakness, strength equal bilaterally - Psychiatric Psychiatric: Somnolent but arousable A&O x's 3, appropriate affect, intact judgment & insight - Labs CBC & Chem 7: 05/10/24 04:09 05/13/24 10:43 Labs: Abnormal Lab Results - Last 24 Hours (Table) 05/13/24 05/14/24 Range/Units 10:43 09:02 BUN 59 H (7-17) mg/dL Creatinine 2.90 H (0.52-1.04) mg/dL Glucose 208 H (74-99) mg/dL POC Glucose (mg/dL) 315 H (70-110) mg/dL Assessment and Plan Assessment: Altered mental status encephalopathy due to severe hypoxia deconditioning and metastatic lung cancer Recurrent left-sided malignant pleural effusion Left leg wound and cellulitis Generalized weakness and medical debility Left lower lobe pneumonia Acute on chronic hypoxic respiratory failure Metastatic squamous cell lung cancer Pleural fluid cytology positive for squamous cell cancer Generalized weakness and medical debility History COPD Plan: It appears that even palliative Pleurx catheter could not be materialized, consider hospice care awaiting family meeting and evaluation Discussed with CT surgery for Pleurx catheter placement for therapeutic and palliative intent, however patient appeared to be decompensating with very shallow respiration family leaning towards hospice Continue supportive measure, prognosis poor even at best Oncology evaluation recommendation noted ID recommendation noted as well Time with Patient: Greater than 30
== END 2024-05-14 11:05 | disposition hospice, inpatient (51) | DRG 177 ==
LOC: EC 16:54 → 4SSUR 19:55
PROVIDERS: ADMIT Family Medicine; ATTEND Family Medicine
PROC: 05HD33Z Insertion of Infusion Device into Right Cephalic Vein, Percutaneous Approach (ICD-10-PCS; principal; 2024-05-08 17:25)
DX: J69.0 Pneumonitis due to inhalation of food and vomit (principal); J96.21 Acute and chronic respiratory failure with hypoxia; C34.32 Malignant neoplasm of lower lobe, left bronchus or lung; C79.9 Secondary malignant neoplasm of unspecified site; G93.40 Encephalopathy, unspecified; I50.32 Chronic diastolic (congestive) heart failure; J91.0 Malignant pleural effusion; J98.11 Atelectasis; L03.116 Cellulitis of left lower limb; J44.0 Chronic obstructive pulmonary disease with (acute) lower respiratory infection; Z87.891 Personal history of nicotine dependence; D64.9 Anemia, unspecified; Z51.5 Encounter for palliative care; R53.81 Other malaise; R00.0 Tachycardia, unspecified; Z66 Do not resuscitate; E66.9 Obesity, unspecified; I72.3 Aneurysm of iliac artery; E78.5 Hyperlipidemia, unspecified; Z99.81 Dependence on supplemental oxygen; J43.9 Emphysema, unspecified; I11.0 Hypertensive heart disease with heart failure; Z68.32 Body mass index [BMI] 32.0-32.9, adult; J44.89 Other specified chronic obstructive pulmonary disease; F41.9 Anxiety disorder, unspecified; I25.10 Atherosclerotic heart disease of native coronary artery without angina pectoris; K21.9 Gastro-esophageal reflux disease without esophagitis; K80.20 Calculus of gallbladder without cholecystitis without obstruction; M19.90 Unspecified osteoarthritis, unspecified site; Z79.82 Long term (current) use of aspirin; Z79.899 Other long term (current) drug therapy; Z88.0 Allergy status to penicillin; Z95.5 Presence of coronary angioplasty implant and graft; Z87.01 Personal history of pneumonia (recurrent); Z71.3 Dietary counseling and surveillance; Z79.51 Long term (current) use of inhaled steroids
CPT/HCPCS: 36410; 36415; 70553; 71046; 71250; 74177; 76937; 80048; 80053; 82565; 82607; 82728; 82747; 83540; 83550; 83605; 83735; 83880; 83921; 84145; 84484; 85025; 85610; 85730; 87070; 87075; 87077; 87186; 87205; 93005; 94640; 94760; 99285

== ENCOUNTER 2024-05-14 10:11 | Inpatient (IN) | payer MEDICAID ==
[2024-05-14] MEDS ORDERED: ACETAMINOPHEN SUPPOSITORY 650 MG SUPP RECTAL PRN (11:00)
[2024-05-14] MEDS ORDERED: DRY MOUTH SPRAY 44.3 SPRAY/44.3 ML SPRAY MUCOUS MEM PRN (11:00)
[2024-05-14] MEDS ORDERED: ONDANSETRON 4 MG/2 ML VIAL IVP PRN (11:00)
[2024-05-14] MEDS ORDERED: ATROPINE OPHTH SOLN 1% 5ML BTL SUBLINGUAL PRN (11:00)
[2024-05-14] MEDS ORDERED: GLYCOPYRROLATE 0.2 MG/ML 2 ML VIAL IVP PRN (11:00)
[2024-05-14] MEDS ORDERED: MORPHINE SULFATE 4 MG/ML SYRINGE IV PRN (11:00)
[2024-05-14] MEDS: LORazepam 2 MG/ML INJ IV PRN (11:30)
[2024-05-14] MEDS: MORPHINE SULFATE (100 MG/2 ML) 100 MG in SODIUM CHLORIDE 0.9% 100 ML IV SCH (11:31)
[2024-05-14] MEDS: SCOPOLAMINE 1 MG/72 HR PATCH TRANSDERM SCH (11:33)
[2024-05-14 14:31] VITALS: RESP 20
== END 2024-05-14 15:46 | disposition expired | DRG 951 ==
LOC: 4SSUR 11:05
PROVIDERS: ADMIT Family Medicine; ATTEND Family Medicine
DX: Z51.5 Encounter for palliative care (principal); C34.90 Malignant neoplasm of unspecified part of unspecified bronchus or lung; J91.0 Malignant pleural effusion; I50.30 Unspecified diastolic (congestive) heart failure; J44.9 Chronic obstructive pulmonary disease, unspecified; Z88.0 Allergy status to penicillin